=== PATIENT | male | born 1965 | race Caucasian/White ===

== ENCOUNTER 2022-05-29 12:11 | Inpatient (IN) | payer OTHER, MEDICAID, SELFPAY ==
--- NOTE | 2022-05-29 | ECG_ITS ---
Test Reason : MED CLEARANCE Blood Pressure : / mmHG Vent. Rate : 088 BPM Atrial Rate : 088 BPM P-R Int : 158 ms QRS Dur : 084 ms QT Int : 376 ms P-R-T Axes : 064 -55 013 degrees QTc Int : 454 ms Normal sinus rhythm Left axis deviation Abnormal ECG When compared with ECG of 22-JUN-2019 08:49, ST no longer depressed in Anterior leads T wave inversion no longer evident in Inferior leads Referred By: Linda Hatch Electronically Signed By:DARRION WINSLOW
--- NOTE | ~2022-05-29 | XR_ITS ---
EXAMINATION: XR RIBS, RIGHT CLINICAL INFORMATION: Pain right posterior rib. Status post fall COMPARISON: None TECHNIQUE: 3 views of the right ribs were obtained. FINDINGS: The lungs are hyperinflated but clear. Heart size and pulmonary vascularity is normal. There are multiple old rib fracture stabilized with plate and screws. There are other old healed fractures involving right posterior fourth, fifth, sixth rib unchanged to 09/11/2019. Additional fractures seen involving right lateral fifth and sixth ribs which are new since 2019 but nondisplaced. There are no left rib fracture seen. XR/XR ribs RT min 3V w CXR1V IMPRESSION: There are old healed rib fracture stabilized with metallic plate and screws involving right lateral fourth, fifth, sixth, seventh, eighth and ninth ribs. There are old partially healed fractures involving posterior fourth, fifth and sixth ribs. These are fractures are stable and unchanged from 09/11/2019. There are new right lateral fifth and sixth rib fractures, new since 2019 exam. The lungs are clear. There is no pneumothorax.
--- NOTE | ~2022-05-29 | XR_ITS ---
EXAMINATION: XR CHEST CLINICAL INFORMATION: Respiratory failure COMPARISON: Chest radiograph 06/03/2022 TECHNIQUE: Frontal view of the chest was obtained. FINDINGS: ET tube is present 7.3 cm above the laura, previously 6 cm. Right IJ catheter again noted with tip at SVC/RA junction. NG tube with tip in gastric fundus just beyond the GE junction. Multiple plate and screw devices present overlying multiple right-sided rib fractures. Heart size is normal. Some scattered areas of atelectasis are seen with worsening at the left lung base. No evidence of CHF, gross consolidations or pleural effusions. XR/XR chest 1V IMPRESSION: Mild increase in areas of atelectasis. ET tube has retracted and is now 7.3 cm above laura.
--- NOTE | ~2022-05-29 | XR_ITS ---
EXAMINATION: XR CHEST CLINICAL INFORMATION: Hypoxia. COMPARISON: 06/02/2022 chest radiograph. TECHNIQUE: Frontal view of the chest was obtained. FINDINGS: Support devices: Endotracheal tube is positioned approximately 6 cm proximal to laura. Right internal jugular catheter with tip terminating at the level the cavoatrial junction. Enteric tube with tip not included on the study but seen below the left hemidiaphragm. Multilevel right rib reconstruction plates in place without abnormality. The lungs are clear. The heart and mediastinal structures are unremarkable. XR/XR chest 1V IMPRESSION: 1. Support devices as detailed above. 2. No acute cardiopulmonary process.
--- NOTE | ~2022-05-29 | CT_ITS ---
EXAMINATION: CT ABDOMEN AND PELVIS WITHOUT CONTRAST CLINICAL INFORMATION: Abdominal pain, colitis. COMPARISON: None TECHNIQUE: Multidetector volumetric imaging was performed from the superior aspect of the liver through the pubic symphysis. Sagittal and coronal reformatted images were obtained on the technologist's workstation. This CT examination was performed using dose optimization techniques as appropriate, variously including the following: *Automated exposure control *Adjustment of mA and/or kV according to patient size (this includes techniques or standardized protocols for targeted exams where dose is matched to indication/reason for exam; i.e. extremities or head) *Use of iterative reconstruction technique DLP: 477 mGy-cm FINDINGS: LUNG BASES: The lung bases are clear. The heart size is normal. LIVER, GALLBLADDER, AND BILIARY TREE: The liver is normal in size, shape, and attenuation. No focal hepatic lesion or biliary ductal dilatation is present. The gallbladder is unremarkable with no evidence of radiopaque gallstones, gallbladder wall thickening, or obvious pericholecystic inflammatory changes. PANCREAS: The pancreas is homogeneous in density without enlargement. The peripancreatic fat borders are preserved. SPLEEN: Unremarkable. ADRENAL GLANDS: Unremarkable. KIDNEYS AND URETERS: The kidneys are normal in size, shape, and attenuation. There is a 4 mm radiopaque calculi lower pole calyx right kidney. There is no caliectasis or hydronephrosis . BLADDER: Unremarkable. GASTROINTESTINAL TRACT: . There is mild mural thickening involving the descending and sigmoid colon but no pericolic fat stranding seen. The transverse colon is unremarkable. There is scattered stool in ascending and right transverse colon. The IC junction is normal. Appendix is not visualized. ABDOMINAL WALL: No significant hernia is appreciated. LYMPH NODES: Normal. VASCULAR: There is atherosclerotic calcification of abdominal aorta, common iliac and external iliac arteries without aneurysmal dilatation. PELVIC VISCERA: The prostate gland is mildly enlarged in size OSSEOUS STRUCTURES: No aggressive lytic or sclerotic process seen. CT/CT abdomen pelvis wo IV con IMPRESSION: Diffuse mural thickening involving descending and sigmoid colon without pericolic fat stranding suggestive of inflammatory or infectious colitis. No diverticuli seen. Nonobstructive radiopaque calculi lower pole calyx right kidney. Fleischner guidelines were followed.
--- NOTE | ~2022-05-29 | XR_ITS ---
EXAMINATION: XR CHEST CLINICAL INFORMATION: ET tube placement COMPARISON: 05/29/2022 TECHNIQUE: Frontal view of the chest was obtained. FINDINGS: The ET tube is at the level of the clavicular heads 9 cm above the laura. NG tube tip overlying the fundus of the stomach. Proximal port at the level of the GE junction Lung joiner are comparable to previous. Fractures on the right. No convincing evidence for underlying acute process. Left lung is grossly clear No significant effusion is seen. The cardiac contour is comparable. XR/XR chest 1V IMPRESSION: ET tube 8.9 cm above the laura ET tube tip overlying the fundus of the stomach. Proximal port at the level of the GE junction
--- NOTE | ~2022-05-29 | XR_ITS ---
EXAMINATION: XR SHOULDER, RIGHT CLINICAL INFORMATION: Fall, trauma, pain COMPARISON: Chest and right ribs 05/29/2022 TECHNIQUE: Right shoulder is imaged in 3 views. FINDINGS: The right shoulder shows no fracture or dislocation. Acromioclavicular alignment is normal. The glenohumeral joint appears normal. There is a punctate calcification adjacent to the posterior lateral humeral head which may be related to calcific tendinosis in the teres minor. Again, there are chronic posttraumatic changes right ribs several oblique show metallic plate and screws and others with old posttraumatic deformity and healing fractures. Right lung apex shows no pneumothorax or pleural reaction or airspace opacity. XR/XR shoulder RT min 2V IMPRESSION: -No fracture or dislocation right shoulder. -Punctate calcification posterior lateral rotator cuff.
--- NOTE | ~2022-05-29 | XR_ITS ---
EXAMINATION: XR CHEST CLINICAL INFORMATION: Line placement COMPARISON: 06/01/2022 TECHNIQUE: Frontal view of the chest was obtained. FINDINGS: Endotracheal tube at the level of the clavicles, approximately 7 cm above the laura. Enteric tube extends into the stomach. Right internal jugular central venous catheter terminates near the cavoatrial junction. Right-sided rib plating. Cardiac leads overlie the chest. The lungs are well expanded. There is no focal consolidation, edema, or effusion. No pneumothorax. The cardiomediastinal silhouette is within normal limits. No acute osseous abnormality. XR/XR chest 1V IMPRESSION: Endotracheal tube terminates at the level of the clavicles, approximately 7 cm above the laura. Slight advancement could be considered. Right internal jugular central venous catheter terminates near the cavoatrial junction. No pneumothorax. Clear lungs.
[2022-05-29 12:27] VITALS: BP 128/88; BP 134/88; PULSE 92; PULSE 96; RESP 16; TEMP 37.1; O2SAT 95; O2SAT 96; BMI 22.1
--- NOTE | 2022-05-29 12:43 | MHC.CARE ---
Pt was seen by [facility] and is a bedsearch from the community
[2022-05-29 13:00] LABS: COVID-19 Test Negative (Negative); IDNOW Serial# 16C4AD1C
[2022-05-29] MEDS: chlordiazePOXIDE HCl 25 MG CAPSULE 50 MG PO (13:14)
--- NOTE | 2022-05-29 13:16 | ED_ITS ---
HPI - Psych General Chief Complaint: Psychiatric Symptoms Stated Complaint: SEC 12 BY [facility]N FOR SI PER EMS Time Seen by Provider: 05/29/22 12:27 Source: patient and EMS Mode of arrival: EMS History of Present Illness HPI Narrative: 57-year-old male with a past medical history of ETOH abuse, depression, presenting to ED via EMS on a Section 12 bed search from community for suicidal ideations and plan s/p mother's in October. Per EMS also concern for medication noncompliance. Patient states he has been taking prescribed medications appropriately. Drinks about 12 beers daily, last drink last night, does report history of withdrawal, denies withdrawal seizures. Feels mildly tremulous at present. Has plan to slit his wrist or go to [employer] to borrow his friends gun and shoot himself. Reports increased anxiety, decreased p.o. intake and poor sleep. Reports chronic colitis/diarrhea and paresthesias to RLE which are unchanged. Denies fever, CP/SOB nausea/vomiting, dysuria/hematuria. Reports marijuana use, denies other illicit substances, HI, auditory or visual hallucinations MD complaint: suicidal ideation, feels depressed, anxiety, substance abuse and alcohol abuse Onset (ago): day(s) Related Data Home Medications Medication Instructions Recorded Confirmed acetaminophen 325 mg tablet mg PO 05/29/22 alprazolam 1 mg tablet 1 tab PO TID PRN Anxiety 05/29/22 05/29/22 amlodipine 10 mg tablet 1 tab PO DAILY 05/29/22 05/29/22 diphenhydramine HCl 25 mg capsule 1 cap PO BEDTIME 05/29/22 05/29/22 hydroxyzine pamoate 25 mg capsule mg PO BID 05/29/22 ibuprofen 400 mg tablet 1 tab PO TID 05/29/22 05/29/22 lisinopril 20 mg tablet 1 tab PO DAILY 05/29/22 05/29/22 melatonin 3 mg tablet mg PO 05/29/22 metoprolol succinate 50 mg 1 tab PO DAILY 05/29/22 05/29/22 tablet,extended release 24 hr nicotine (polacrilex) 4 mg buccal 1 ea PO QID PRN Smoking Cessation 05/29/22 05/29/22 lozenge nicotine 21 mg/24 hr daily 1 patch topical DAILY 05/29/22 05/29/22 transdermal patch pantoprazole 40 mg tablet,delayed 1 tab PO DAILY 05/29/22 05/29/22 release trazodone 50 mg tablet 1 tab PO BEDTIME 05/29/22 05/29/22 Allergies Allergy/AdvReac Type Severity Reaction Status Date / Time aspirin [ASA] Allergy Unknown FACIAL Unverified 05/31/20 16:36 SWELLING Penicillins [PENICILLINS] Allergy Unknown HIVES Unverified 05/31/20 16:36 tramadol [TRAMADOL] Allergy Unknown NAUSEA & Unverified 05/31/20 16:36 VOMITING aspirin Allergy Unknown Uncoded 03/25/17 00:00 penicillin Allergy Unknown Uncoded 03/25/17 00:00 tramadol Allergy Unknown Uncoded 03/25/17 00:00 Review of Systems Review of Systems: Constitutional: No Fever, No Chills, No Fatigue, No Malaise ENT/Mouth: No Ear Pain, No Nasal Congestion, No sore throat, No Rhinorrhea, No Swallowing Difficulty Eyes: No Eye Pain, No Swelling, No Redness Cardiovascular: No Chest Pain, No SOB, No Edema, No Palpitations Respiratory: No Cough, No Sputum, No Dyspnea Gastrointestinal: No Nausea, No Vomiting, + Diarrhea, No Constipation, +chronic Abdominal pain (colitis) Genitourinary: No Dysuria, No Urgency, No Flank Pain, No Urinary Flow Changes, No Hesitancy Musculoskeletal: No joint pain, No Myalgias, No Joint Swelling Skin: No Skin Lesions, No rash Neuro: No Weakness, No Numbness, +Chronic Paresthesias, No Headache Psych: + Anxiety/Panic, + Depression, + SI, No HI/AH/VH, + Social Issues Yes all other systems are reviewed and are negative Constitutional: Constitutional: Reports as per [facility] Past Medical History Attestation statement: The following information was validated with the patient. Physical Exam Vital Signs: Vital Signs: Last Vital Signs Temp 98.7 F 05/29/22 12:27 Pulse 92 05/29/22 12:27 Resp 16 05/29/22 12:27 BP 134/88 05/29/22 12:27 Pulse Ox 96 05/29/22 12:27 O2 Del Method 05/29/22 12:27 BMI result Body Mass Index 22.1 Const: Other: tearful, mildly tremulous, no tongue fasciculations. General: cooperative, healthy appearing and anxious Orientation/consciousness: patient oriented x3 Limitations: no limitations HEENT: Head: Yes normal to inspection and Yes atraumatic Ears: hearing grossly normal bilaterally General nose exam: Normal external nose present Face and sinus: Yes normal facial exam Throat: Yes posterior oropharynx normal Eyes: General: appearance normal, both eyes and all related structures EOM: EOMs intact bilaterally Neck: Neck: Yes normal visual inspection and Yes no meningeal signs Resp: Effort & Inspection: normal respiratory effort and no respiratory distress Auscultation: clear to auscultation bilaterally, no crackles, no rales, no rhonchi and no wheezes Cardio: Rate: regular rate Heart sounds: S1 normal heart sound present and S2 normal heart sound present GI: Inspection: Yes normal to inspection Palpation (GI): Soft to palpation, nontender, no guarding and not rigid Skin: Rashes: no rashes Wounds: no wounds Neuro: General: patient oriented x3, gait normal, tone normal, moves all extremities, no meningeal signs and no focal motor deficits Cranial nerves: Yes CN's II-XII intact bilaterally Cognition (Neuro): normal cognition Gait exam (Neuro): Normal gait present Extrem: General: Yes normal to inspection Psych: Appearance: grossly normal Affect: Sad affect present and Anxious affect present Attitude: cooperative Thought process: Normal thought process present Thought content: Suicidality present, no homicidality, no hallucinations and Depressive thoughts present Insight: Good insight present (Psych) Course Course Course Narrative: -[id number]--magnesium critically low at 1.0 > 2 g IV repletion ordered as well as IV thiamine and multivitamin. Patient will be removed from Behavioral POD and brought into the main ED -chronic transaminitis. Ethanol negative. Will initiate phenobarb protocol and plan for admission MDM - Psych MDM Narrative Medical decision making narrative: 57-year-old male with a past medical history of ETOH abuse, depression, presenting to ED via EMS on a Section 12 bed search from community for suicidal ideations and plan s/p mother's in October. On exam vital signs stable, NAD, tearful, anxious and depressed during evaluation, mildly tremulous. Concern for mild EtOH withdrawal and suicidal ideations with plan. Will rule out metabolic/infectious etiology/organic causes Plan: EKG, labs, UA, MO, bedsearch Differential Diagnosis Differential diagnosis: Likely depression, acute anxiety, substance abuse, alcohol intoxication and mood disorder Medical Records Attestation: I reviewed the patient's medical records. Lab Data Attestation: I reviewed the patient's lab results. Result diagrams: 05/29/22 13:10 05/29/22 13:10 Labs: Lab Results 05/29/22 05/29/22 05/29/22 Range/Units 12:37 13:10 13:10 WBC 5.1 (4.8-10.8) X10*3/uL RBC 3.76 L (4.60-5.80) X10*6/uL Hgb 13.3 L (14.0-18.0) g/dl Hct 36.4 L (42.0-52.0) % MCV 96.8 (80.0-98.0) fL MCH 35.4 H (27.0-33.0) pg MCHC 36.5 H (31.0-36.0) g/dl RDW 11.9 (11.0-16.0) % Plt Count 135 L (160-400) X10*3/uL MPV 9.3 L (9.4-12.4) fL Immature Gran % (Auto) 0.2 (0.0-0.4) % Neut % (Auto) 61.9 (45-73) % Lymph % (Auto) 27.7 (20-40) % [place] % (Auto) 8.2 (2-11) % Eos % (Auto) 1.4 (0-4) % Baso % (Auto) 0.6 (0-2) % Lymph # (Auto) 1.4 (1.2-4.9) X10*3/uL [place] # (Auto) 0.4 (0.1-1.2) X10*3/uL Eos # (Auto) 0.1 (0.0-0.4) X10*3/uL Baso # (Auto) 0.0 (0.0-0.2) X10*3/uL Abs Immat Gran (auto) 0.01 (0.00-0.03) X10*3/uL Absolute Neuts (auto) 3.2 (2.0-8.3) x10*3/uL Absolute Nucleated RBC 0.000 (0.0-0.012) X10*3/uL Nucleated RBC % (auto) 0.0 (0.0-0.2) /100WBC Sodium 137 (135-145) mmol/L Potassium 3.5 (3.3-5.1) mmol/L Chloride 97 (96-108) mmol/L Carbon Dioxide 29 (22-29) mmol/L Anion Gap 15 (12-20) BUN 18 H (9-16) mg/dL Creatinine 1.17 (0.5-1.4) mg/dL Estim Creat Clear Calc 67.8 Estimated GFR > 60 Random Glucose 120 H (60-115) mg/dL Calcium 9.1 (8.4-10.2) mg/dL Magnesium 1.0 L* (1.6-2.6) mg/dL Total Bilirubin 3.8 H (0.0-1.0) mg/dL Direct Bilirubin 2.1 H (0.0-0.5) mg/dL AST 176 H (5-37) U/L ALT 200 H (0-40) U/L Alkaline Phosphatase 114 (39-117) U/L Total Protein 6.6 (6.5-8.0) g/dL Albumin 3.7 (3.5-5.0) g/dL Lipase 31 (8-78) U/L Ethyl Alcohol < 10 mg/dL COVID-19 ([facility]YN) Negative (Negative) COVID-19 Clin Com See Note Critical Care Time Critical Care Time Critical Care Time: Yes Total Critical Care Time: 30 Attestation: I have personally provided critical care time exclusive of time spent on separately billable procedures. Time includes review of lab data, radiology results, discussion with consultants, and monitoring for potential decompensation. Intervention performed as documented. Discharge Plan Discharge Clinical Impression: Hypomagnesemia, Depression with suicidal ideation, Chronic alcohol abuse Patient Disposition: Admitted As Inpatient
[2022-05-29 13:18] LABS: MANUAL DIFF FLAG NO
[2022-05-29 13:22] LABS: Basophils Percent Auto 0.6 % (0-2); Eosinophils Absolute Auto 0.1 X10*3/uL (0.0-0.4); Eosinophils Percent Auto 1.4 % (0-4); Hematocrit 36.4 % (42.0-52.0); Hemoglobin 13.3 g/dl (14.0-18.0); Imm Gran Abs Auto 0.01 X10*3/uL (0.00-0.03); Imm Gran Pct Auto 0.2 % (0.0-0.4); Lymphocytes Absolute Auto 1.4 X10*3/uL (1.2-4.9); Lymphocytes Percent Auto 27.7 % (20-40); Mean Corpuscular HGB Conc 36.5 g/dl (31.0-36.0); Mean Corpuscular Hemoglobin 35.4 pg (27.0-33.0); Mean Corpuscular Volume 96.8 fL (80.0-98.0); Mean Platelet Volume 9.3 fL (9.4-12.4); Monocytes Absolute Auto 0.4 X10*3/uL (0.1-1.2); Monocytes Percent Auto 8.2 % (2-11); Neutrophils Absolute Auto 3.2 x10*3/uL (2.0-8.3); Neutrophils Percent Auto 61.9 % (45-73); Platelet Count 135 X10*3/uL (160-400); Red Blood Count 3.76 X10*6/uL (4.60-5.80); Red Cell Distribution Width 11.9 % (11.0-16.0); White Blood Count 5.1 X10*3/uL (4.8-10.8)
[2022-05-29 13:49] LABS: Alanine Aminotransferase 200 U/L (0-40); Albumin Level 3.7 g/dL (3.5-5.0); Alkaline Phosphatase 114 U/L (39-117); Anion Gap 15 (12-20); Aspartate Amino Transferase 176 U/L (5-37); Bilirubin Direct 2.1 mg/dL (0.0-0.5); Bilirubin Total 3.8 mg/dL (0.0-1.0); Blood Urea Nitrogen 18 mg/dL (9-16); Calcium 9.1 mg/dL (8.4-10.2); Carbon Dioxide 29 mmol/L (22-29); Chloride 97 mmol/L (96-108); Creatinine Clr Calc Pharmacy 67.8; Estimated Glomerular Filt Rate > 60; Ethanol < 10 mg/dL; Glucose Random 120 mg/dL (60-115); Lipase 31 U/L (8-78); Potassium 3.5 mmol/L (3.3-5.1); Sodium 137 mmol/L (135-145); Total Protein 6.6 g/dL (6.5-8.0)
--- NOTE | 2022-05-29 13:52 | PC.NURSE ---
chemistry reports to me mag crit low at 1.0. notified provoder, immedicately got ekg machine and brought to pod, notified pATIENT and continued w ekg
--- NOTE | 2022-05-29 14:18 | PHA.MEDREC ---
Pharmacy Consult ? Medication Reconciliation Pharmacy has completed the medication reconciliation. Patient had medications with him down in the pod. I packaged them up in a patient own bag, had RN Britt verify the control count (alprazolam) and it is now being kept in the [facility] safe till patient is discharged.
--- NOTE | 2022-05-29 14:33 | MHC.CARE ---
Pt was initially assessed by Bishnu Clifford in the community and found IPLOC. Pt is now going to be a medical admit. Please consult CARE Team when Pt is medically cleared for assessment
--- NOTE | 2022-05-29 14:52 | PM.IMHP ---
History of Present Illness Date of Service: 05/29/22 Attending physician on admission: Quintin Schmid Chief Complaint: alcohol withdrawal, SI 57 year old male with history of htn, gerd, alcohol dependence, chronic right shoulder pain with RUE weakness, and depression/anxiety presenting to ED via EMS on section 12 bed search from community for SI with plan ongoing since his mother's in October. Per EMS, also concern for medication noncompliance. Bed search is currently underway for his depression/SI. However, patient admits to drinking 12 beers and 12 nips of whiskey daily, last drink was last night. He has experienced withdrawal before with tremors, diarrhea, poor sleep. Denies seizure history. Recently hospitalized at [facility] from 04/22- for alcohol but apparently was lost to outpt follow up and has resumed drinking. No illicit drug use. Does smoke MJ occassionally. Pt also states he was told by [facility] last year his pancreatitis is low but is not able to elaborate. Amylase and lipase are normal. Liver emzymes elevated but close to baseline overall with total bili 3.8, direct bili 2.1, AST 176, ALT 200 (increased from 136), alk phos 113. Mg 1.0. EKG with normal sinus rhythm rate [address] abnormality. He is reporting nonradiating lower abdominal pain which he feels is consistent with his colitis history and is associated with watery diarrhea with urgency/incontinence. Denies melena or hematochezia. He reports a weight loss of 50 pounds since the onset of his depression with decreased PO intake. Pt still in BH pod, with plan to be moved to main ED for treatment with 2mg IV magnesium, phenobarb per protocol. Has been given single dose of 50mg librium. Review of Systems Review of Systems: General: No fevers, malaise, unintentional weight loss Cardiovascular: No chest pain, palpitations, or leg edema Respiratory: No shortness of breath, wheezing, cough GI: +lower abd pain, +diarrhea with urgency. No nausea, vomiting, constipation, melena, hematochezia Neuro: No headaches, weakness, paresthesias Psych: +depression, +SI Skin: No rashes or lesions [facility] Medical History (Updated 05/29/22 @ 15:13 by HOLLI Arroyo) GERD (gastroesophageal reflux disease) Heavy tobacco smoker History of colitis HTN (hypertension) Family History (Updated 05/29/22 @ 15:13 by HOLLI Arroyo) Mother Alzheimer disease Multiple sclerosis Social History (Updated 05/29/22 @ 15:14 by HOLLI Arroyo) Patient Tobacco Use Status: Current everyday Tobacco user Cigarette Packs Per Day: 2 Use of substances other than those prescribed or required for medical reasons: Yes Substance Use Type: Marijuana Advance Directives: No Advance Directives Information Provided: No Meds Allergies Allergy/AdvReac Type Severity Reaction Status Date / Time aspirin [ASA] Allergy Unknown FACIAL Unverified 05/31/20 16:36 SWELLING Penicillins [PENICILLINS] Allergy Unknown HIVES Unverified 05/31/20 16:36 tramadol [TRAMADOL] Allergy Unknown NAUSEA & Unverified 05/31/20 16:36 VOMITING aspirin Allergy Unknown Uncoded 03/25/17 00:00 penicillin Allergy Unknown Uncoded 03/25/17 00:00 tramadol Allergy Unknown Uncoded 03/25/17 00:00 Active Medications: Current Medications Acetaminophen (Acetaminophen Supp 650 Mg Supp.Rect) 650 mg ND Q6H PRN PRN Reason: Pain, Mild (Pain Scale 1-3) Enoxaparin Sodium (Enoxaparin Sodium 40 Mg/0.4 Ml Syringe) 40 mg SUBCUT Q24H CALVIN Magnesium Sulfate (Magnesium Sulfate/H2o) 2 gm in 50 mls @ 25 mls/hr IV ONCE ONE Stop: 05/29/22 15:55 Ondansetron HCl (Ondansetron Hcl 4 Mg/2 Ml Vial) 4 mg IVPUSH Q8H PRN PRN Reason: Nausea and Vomiting Pharmacy Consult (Consult Rx Perform Med Rec) 1 each MISCELLANE ONCE PRN PRN Reason: Consult order Pharmacy Consult (Consult Rx Perform Med Rec) 1 each MISCELLANE ONCE PRN PRN Reason: Consult order Pharmacy Consult (Consult Rx Etoh Phenob Po Only) 1 each MISCELLANE ONCE PRN; Protocol PRN Reason: Consult order Phenobarbital 200 mg/Phenobarbital 60 mg/Phenobarbital 15 mg 275 mg PO ONCE ONE; Protocol Stop: 05/29/22 15:01 Phenobarbital (Phenobarbital 100 Mg Tablet) 200 mg PO Q3H CALVIN; Protocol Stop: 05/29/22 21:01 Phenobarbital (Phenobarbital 15 Mg Tablet) 45 mg PO BID CALVIN; Protocol Stop: 05/31/22 21:01 Phenobarbital (Phenobarbital 15 Mg Tablet) 15 mg PO BID CALVIN; Protocol Stop: 06/02/22 21:01 Phenobarbital (Phenobarbital 15 Mg Tablet) 15 mg PO DAILY [facility]; Protocol Stop: 06/04/22 09:01 Sodium Chloride (0.9 % Sodium Chloride Flush 3 Ml Syringe) 3 ml IVFLUSH QSHIFT [facility] Home Medications Medication Instructions Recorded Confirmed Last Taken Type acetaminophen 325 mg tablet 325 mg PO DAILY PRN Pain 05/29/22 05/29/22 Unknown History alprazolam 1 mg tablet 1 tab PO TID PRN Anxiety 05/29/22 05/29/22 Unknown History amlodipine 10 mg tablet 1 tab PO DAILY 05/29/22 05/29/22 Unknown History diphenhydramine HCl 25 mg capsule 1 cap PO BEDTIME 05/29/22 05/29/22 Unknown History ibuprofen 400 mg tablet 1 tab PO TID 05/29/22 05/29/22 Unknown History lisinopril 20 mg tablet 1 tab PO DAILY 05/29/22 05/29/22 Unknown History melatonin 3 mg tablet 9 mg PO DAILY PRN Insomnia 05/29/22 05/29/22 Unknown History metoprolol succinate 50 mg 1 tab PO DAILY 05/29/22 05/29/22 Unknown History tablet,extended release 24 hr pantoprazole 40 mg tablet,delayed 1 tab PO DAILY 05/29/22 05/29/22 Unknown History release trazodone 50 mg tablet 1 tab PO BEDTIME 05/29/22 05/29/22 Unknown History Physical Exam Vital Signs and Narrative: Vital Signs: Last Vital Signs Temp 98.7 F 05/29/22 12:27 Pulse 92 05/29/22 12:27 Resp 16 05/29/22 12:27 BP 134/88 05/29/22 12:27 Pulse Ox 96 05/29/22 12:27 O2 Del Method 05/29/22 12:27 BMI result Body Mass Index 22.1 Constitutional - Awake and Alert, No apparent distress Eyes - PERRLA, EOMI Cardiovascular - S1S2, RRR, No edema Respiratory - Normal lung expansion, Normal respiratory effort, No respiratory distress, CTA bilaterally Gastrointestinal - Moderate ttp lower abd without guarding or rebound. Nondistended without rigidity. +BS Extremities - no calf tenderness bilaterally, no swelling Skin - Warm/Dry Neurological - Alert & oriented x3, CN II-XII in tact, 4/5 strength BLE and RUE. 5/5 strength LUE Psychological - Depressed, flat affect, tearful at times Results Labs CBC and Chem 7: 05/29/22 13:10 05/29/22 13:10 Labs: Laboratory Results - last 24 hr 05/29/22 05/29/22 05/29/22 12:37 13:10 13:10 MCV 96.8 MCH 35.4 H MCHC 36.5 H RDW 11.9 Plt Count 135 L MPV 9.3 L Immature Gran % (Auto) 0.2 Neut % (Auto) 61.9 Lymph % (Auto) 27.7 [place] % (Auto) 8.2 Eos % (Auto) 1.4 Baso % (Auto) 0.6 Lymph # (Auto) 1.4 [place] # (Auto) 0.4 Eos # (Auto) 0.1 Baso # (Auto) 0.0 Abs Immat Gran (auto) 0.01 Absolute Neuts (auto) 3.2 Absolute Nucleated RBC 0.000 Nucleated RBC % (auto) 0.0 Anion Gap 15 Estim Creat Clear Calc 67.8 Estimated GFR > 60 Random Glucose 120 H Calcium 9.1 Magnesium 1.0 L* Total Bilirubin 3.8 H Direct Bilirubin 2.1 H AST 176 H ALT 200 H Alkaline Phosphatase 114 Total Protein 6.6 Albumin 3.7 Lipase 31 Ethyl Alcohol < 10 COVID-19 ([facility]) Negative COVID-19 Clin Com See Note Assessment and Plan (1) Alcohol withdrawal: Status: Acute (2) Chronic alcohol abuse: Status: Acute (3) Depression with suicidal ideation: Status: Acute Plan 57 year old male with history of htn, gerd, alcohol dependence, chronic right shoulder pain with RUE weakness, hx colitis, and depression/anxiety presenting to ED via EMS on section 12 bed search from community for SI with plan ongoing since his mother's in October to be admitted for alcohol withdrawal. 1- Alcohol withdrawal r/t severe alcohol dependence -Pt consumes 12 beers and 12 shots daily, last drink was last night -Received 50mg librium in ED. Phenobarb protocol initiated, continue per protocol -Continue CIWA scale -Seizure precautions -IV thiamine and folic acid 2-Depression with SI -1:1 sitter -Continue home trazodone, alprazolam -Continue bed search for BH -Section 12 3-Hypomagnesemia -2mg IV mg in ED -Repeat BMP in 2 hours -Hold omeprazole 4-HTN- controlled -Continue home lisinopril, amlodipine, and metoprolol 5-History colitis (per pt, unknown type) -Pt with persistent diarrhea with urgency/incontinence and lower abdominal pain -Ct abd/pelvis ordered -Consider GI referral if needed 6-GERD- controlled -Hold pantoprazole for now d/t low mag 7-Transaminitis- likely related to alcohol use -CT abd/pelvis ordered as above 8-2ppd cigarette user -NRT with 21mg patch and nicorette prn DVT prophylaxis- Lovenox Full code Pt requires inpt stay of at least 2 midnights for management of alcohol withdrawal r/t severe alcohol dependence at risk for seizures Quality Stroke Does the patient have a stroke diagnosis?: No VTE Prior VTE?: No VTE Risk Level:: Medical - moderate - high VTE Device Contraindication: Treatment Not Indicated VTE Drug Contraindication: N/A - Med Ordered
[2022-05-29] MEDS: Magnesium Sulfate/H2O 2 GM/50 ML PIGGYBACK IV (15:56)
[2022-05-29] MEDS: Folic Acid 1 MG TABLET PO (15:59)
[2022-05-29] MEDS: Multivitamin TABLET 1 TAB PO (16:00)
[2022-05-29] MEDS: Enoxaparin Sodium 40 MG/0.4 ML SYRINGE SUBCUT (16:00)
[2022-05-29] MEDS: PHENobarbitaL 200 MG, PHENobarbitaL 60 MG, PHENobarbitaL 15 MG 275 MG PO (16:00)
[2022-05-29 16:05] VITALS: BP 114/89; PULSE 90; RESP 16; O2SAT 95
--- NOTE | 2022-05-29 16:08 | PC.NURSE ---
pt moved over from the pod pt alert and oriented, skin pwd, respirations even and unlabored, pt reports drinking daily about 12 nips of wiskey and bout 6 of the 24 oz beers per day last drink was yesterday, pt currently has a very mild hand tremor, and feels slightly anxious. reports bilateral rib pain and leg pain / vs stable and ns on the monitor,.
[2022-05-29] MEDS: Thiamine HCL 100 MG in 0.9 % Sodium Chloride 100 ML 202 MG IV (17:36)
[2022-05-29] MEDS: 0.9 % Sodium Chloride Flush 3 ML SYRINGE IVFLUSH (17:40)
[2022-05-29] MEDS: Ibuprofen 600 MG TABLET PO (18:11)
[2022-05-29] MEDS: Acetaminophen 325 MG TABLET 650 MG PO (18:13)
[2022-05-29 18:15] VITALS: BP 114/80; PULSE 78; RESP 18; O2SAT 95
[2022-05-29] MEDS: Nicotine 21 MG PATCH.TD24 TRANSDERMA (18:46)
--- NOTE | 2022-05-29 19:00 | PC.NURSE ---
Pt resting, calm/cooperative, sitter outside room, safety maintained, this RN continues to monitor.
[2022-05-29 19:17] LABS: Magnesium 1.6 mg/dL (1.6-2.6)
[2022-05-29] MEDS: oxyCODONE HCl Immed Release 5 MG TABLET PO (20:36)
[2022-05-29] MEDS: diphenhydrAMINE HCL 25 MG TABLET PO (20:37)
[2022-05-29] MEDS: traZODone HCL 50 MG TABLET PO (20:37)
--- NOTE | 2022-05-29 21:56 | MHC.CM.PN ---
Attempted to meet with patient for discharge planning, however pt was sleeping soundly. Pt was recently medicated for pain/withdrawal. Will attempt to meet with patient when he wakes. CM will follow gómez/c planning
[2022-05-29] MEDS: ALPRAZolam 0.5 MG TABLET 1 MG PO (23:33)
--- NOTE | 2022-05-30 | PC.NURSE ---
Pt sleeping, chest rise and fall observed, sitter outside room, safety maintained, this RN continues to monitor.
--- NOTE | 2022-05-30 03:20 | PC.NURSE ---
Pt sleeping, chest rise and fall observed, sitter outside room, safety maintained, this RN continues to monitor.
[2022-05-30 07:20] VITALS: BP 104/67; PULSE 82; RESP 19; O2SAT 95
[2022-05-30 07:37] LABS: Anion Gap 14 (12-20); Blood Urea Nitrogen 14 mg/dL (9-16); Calcium 8.5 mg/dL (8.4-10.2); Carbon Dioxide 28 mmol/L (22-29); Chloride 100 mmol/L (96-108); Creatinine Clr Calc Pharmacy 82.6; Estimated Glomerular Filt Rate > 60; Glucose Random 95 mg/dL (60-115); Magnesium 1.5 mg/dL (1.6-2.6); Potassium 3.4 mmol/L (3.3-5.1); Sodium 139 mmol/L (135-145)
[2022-05-30] MEDS: Thiamine HCL 100 MG in 0.9 % Sodium Chloride 100 ML 202 MG IV (08:58)
[2022-05-30] MEDS: amLODIPine Besylate 10 MG TABLET PO (08:59)
[2022-05-30] MEDS: Metoprolol Succinate ER 50 MG TAB.ER.24H PO (08:59)
[2022-05-30] MEDS: Folic Acid 1 MG TABLET PO (08:59)
[2022-05-30] MEDS: PHENobarbitaL 15 MG TABLET 45 MG PO ×2 (09:00→20:47)
[2022-05-30] MEDS: lisinopriL 20 MG TABLET PO (09:00)
[2022-05-30] MEDS: Nicotine 21 MG PATCH.TD24 TRANSDERMA (09:00)
[2022-05-30] MEDS: 0.9 % Sodium Chloride Flush 3 ML SYRINGE IVFLUSH (09:01)
[2022-05-30 11:29] VITALS: BP 108/75; PULSE 76; RESP 20; O2SAT 95
--- NOTE | 2022-05-30 11:39 | P.CNGI_ITS ---
History of Present Illness Data of Consult Service Date: 05/30/22 Requesting physician: Danielle Godinez Primary Care Provider: Ga Adkins MD [facility] Reason for consult: Diarrrhea, colitis This is a 57-year-old gentleman with past medical history of alcohol use disorder, depression, hypertension, who is currently admitted to the hospital for suicidal ideation and alcohol withdrawal. Gastroenterology has been consulted for complaint of chronic watery diarrhea and findings of increased colon wall thickness on CT abdomen. History was obtained from the patient who states that he he has had diarrhea for many months associated with right lower quadrant abdominal pain. Describes diarrhea as 2-3 loose watery bowel movements every day. The abdominal pain does not change with stooling. Denies any blood in stool. Endorses nausea and occasional vomiting with decreased appetite and per his report 50 lb weight loss the past 6 months.. Tells me he was seen at [facility] for this as well, and he was told to have colonoscopy as outpatient, which he has not been able to get it to his psychiatric issues. In fact, he has never had colonoscopy or other colorectal screening of any kind. In terms of his alcohol use disorder, he drinks cups of a skin every day. Has been hospitalized multiple times for withdrawal, as well as rehabs for treatment with relapse. Tells me he has never had any liver issues, but does recall an admission at [facility] for pancreatitis. Review of Systems Review of Systems: Yes all other systems are reviewed and are negative FOR[facility], [facility] Past Medical History Medical History (Updated 05/30/22 @ 12:40 by Rosanne Lord MD) Chronic diarrhea GERD (gastroesophageal reflux disease) Heavy tobacco smoker History of colitis HTN (hypertension) Family History Family History Mother Alzheimer disease Multiple sclerosis Social History Social History Alcohol intake: current Alcohol intake frequency: 3 or more drinks per day Patient Tobacco Use Status: Current everyday Tobacco user Cigarette Packs Per Day: 2 Use of substances other than those prescribed or required for medical reasons: Yes Substance Use Type: Marijuana Substance Use Frequency: Occasionally Advance Directives: No Advance Directives Information Provided: No Meds Allergies Allergy/AdvReac Type Severity Reaction Status Date / Time aspirin [ASA] Allergy Unknown FACIAL Unverified 05/31/20 16:36 SWELLING Penicillins [PENICILLINS] Allergy Unknown HIVES Unverified 05/31/20 16:36 tramadol [TRAMADOL] AdvReac Unknown NAUSEA & Unverified 05/30/22 10:16 VOMITING Active Medications: Current Medications Acetaminophen (Acetaminophen 325 Mg Tablet) 650 mg PO Q6H PRN PRN Reason: Pain, Moderate (Pain Scale 4-6 Last Admin: 05/29/22 18:13 Dose: 650 mg Alprazolam (Alprazolam 0.5 Mg Tablet) 1 mg PO TID [facility] Amlodipine Besylate (Amlodipine Besylate 10 Mg Tablet) 10 mg PO DAILY [facility]; Protocol Last Admin: 05/30/22 08:59 Dose: 10 mg Diphenhydramine HCl (Diphenhydramine Hcl 25 Mg Tablet) 25 mg PO BEDTIME [facility] Last Admin: 05/29/22 20:37 Dose: 25 mg Enoxaparin Sodium (Enoxaparin Sodium 40 Mg/0.4 Ml Syringe) 40 mg SUBCUT Q24H [facility] Last Admin: 05/29/22 16:00 Dose: 40 mg Folic Acid (Folic Acid 1 Mg Tablet) 1 mg PO DAILY [facility] Last Admin: 05/30/22 08:59 Dose: 1 mg Thiamine HCl 100 mg/ Sodium (Chloride) 101 mls @ 202 mls/hr IV DAILY [facility] Last Infusion: 05/30/22 09:28 Dose: Infused Ibuprofen (Ibuprofen 600 Mg Tablet) 600 mg PO Q6H PRN PRN Reason: Pain, Mild (Pain Scale 1-3) Last Admin: 05/29/22 18:11 Dose: 600 mg Lisinopril (Lisinopril 20 Mg Tablet) 20 mg PO DAILY [facility]; Protocol Last Admin: 05/30/22 09:00 Dose: 20 mg Melatonin (Melatonin 3 Mg Tablet) 9 mg PO DAILY PRN PRN Reason: Insomnia Metoprolol Succinate (Metoprolol Succinate Er 50 Mg Tab.Er.24h) 50 mg PO DAILY [facility]; Protocol Last Admin: 05/30/22 08:59 Dose: 50 mg Nicotine (Nicotine 21 Mg Patch.Td24) 21 mg TRANSDERMA DAILY [facility] Last Admin: 05/30/22 09:00 Dose: 21 mg Nicotine Polacrilex (Nicotine Polacrilex Lozenge 2 Mg Lozenge) 2 mg BUCCAL Q2H PRN PRN Reason: Nicotine Cravings Ondansetron HCl (Ondansetron Hcl 4 Mg/2 Ml Vial) 4 mg IVPUSH Q8H PRN PRN Reason: Nausea and Vomiting Oxycodone HCl (Oxycodone Hcl Immed Release 5 Mg Tablet) 5 mg PO Q6H PRN PRN Reason: Pain, Moderate (Pain Scale 4-6 Last Admin: 05/29/22 20:36 Dose: 5 mg Oxycodone HCl (Oxycodone Hcl Immed Release 5 Mg Tablet) 10 mg PO Q6H PRN PRN Reason: Pain, Severe (Pain Scale 7-10) Pharmacy Consult (Consult Rx Perform Med Rec) 1 each MISCELLANE ONCE PRN PRN Reason: Consult order Pharmacy Consult (Consult Rx Perform Med Rec) 1 each MISCELLANE ONCE PRN PRN Reason: Consult order Pharmacy Consult (Consult Rx Etoh Phenob Po Only) 1 each MISCELLANE ONCE PRN; Protocol PRN Reason: Consult order Phenobarbital (Phenobarbital 15 Mg Tablet) 45 mg PO BID [facility]; Protocol Stop: 05/31/22 21:01 Last Admin: 05/30/22 09:00 Dose: 45 mg Phenobarbital (Phenobarbital 15 Mg Tablet) 15 mg PO BID [facility]; Protocol Stop: 06/02/22 21:01 Phenobarbital (Phenobarbital 15 Mg Tablet) 15 mg PO DAILY [facility]; Protocol Stop: 06/04/22 09:01 Sodium Chloride (0.9 % Sodium Chloride Flush 3 Ml Syringe) [facility] Last Admin: 05/30/22 09:01 Dose: 3 ml Trazodone HCl (Trazodone Hcl 50 Mg Tablet) 50 mg PO BEDTIME [facility] Last Admin: 05/29/22 20:37 Dose: 50 mg Home Medications Medication Instructions Recorded Confirmed Last Taken Type acetaminophen 325 mg tablet 325 mg PO DAILY PRN Pain 05/29/22 05/29/22 Unknown History alprazolam 1 mg tablet 1 tab PO TID PRN Anxiety 05/29/22 05/29/22 Unknown History amlodipine 10 mg tablet 1 tab PO DAILY 05/29/22 05/29/22 Unknown History diphenhydramine HCl 25 mg capsule 1 cap PO BEDTIME 05/29/22 05/29/22 Unknown History ibuprofen 400 mg tablet 1 tab PO TID 05/29/22 05/29/22 Unknown History lisinopril 20 mg tablet 1 tab PO DAILY 05/29/22 05/29/22 Unknown History melatonin 3 mg tablet 9 mg PO DAILY PRN Insomnia 05/29/22 05/29/22 Unknown History metoprolol succinate 50 mg 1 tab PO DAILY 05/29/22 05/29/22 Unknown History tablet,extended release 24 hr pantoprazole 40 mg tablet,delayed 1 tab PO DAILY 05/29/22 05/29/22 Unknown History release trazodone 50 mg tablet 1 tab PO BEDTIME 05/29/22 05/29/22 Unknown History Physical Exam Vital Signs: Vital Signs: Last Vital Signs Temp 98.7 F 05/29/22 12:27 Pulse 76 05/30/22 11:29 Resp 20 05/30/22 11:29 BP 108/75 05/30/22 11:29 Pulse Ox 95 05/30/22 11:29 O2 Del Method 05/30/22 11:29 BMI result Body Mass Index 22.1 Gen appear: No acute distress, HEENT: no icterus, no cervical lymphadenopathy Chest: No overt resp distress CVS: S1/S2, regular Abd: soft, nontender, nondistended, no shifting dullness Psych: Somewhat agitated Neuro: A/Ox3 noted to move all extremities spontaneously Ext: no peripheral edema Results Labs CBC & Chem 7: 05/29/22 13:10 05/30/22 06:08 Labs: Short CBC 05/29/22 Range/Units 13:10 WBC 5.1 (4.8-10.8) X10*3/uL Hgb 13.3 L (14.0-18.0) g/dl Hct 36.4 L (42.0-52.0) % Plt Count 135 L (160-400) X10*3/uL BMP 05/29/22 05/30/22 13:10 06:08 Sodium 137 139 Potassium 3.5 3.4 Chloride 97 100 Carbon Dioxide 29 28 BUN 18 H 14 Creatinine 1.17 0.96 Calcium 9.1 8.5 D Cardiac Enzymes 05/29/22 Range/Units 13:10 Total Creatine Kinase 196 H (38-174) U/L Liver Function 05/29/22 Range/Units 13:10 Total Bilirubin 3.8 H (0.0-1.0) mg/dL Direct Bilirubin 2.1 H (0.0-0.5) mg/dL AST 176 H (5-37) U/L ALT 200 H (0-40) U/L Alkaline Phosphatase 114 (39-117) U/L Albumin 3.7 (3.5-5.0) g/dL Imaging CT scan - abdomen: Attestation: I personally reviewed and interpreted this imaging study as follows: My impression: CT imaging personally reviewed diet shows a normal size liver with slightly lobular contour without any overt fatty changes. Colon wall thickening noted without any pericolonic fatty stranding. Assessment and Plan (1) Chronic diarrhea: Status: Acute (2) Colitis: Status: Acute (3) Chronic alcohol abuse: Status: Acute (4) Alcohol withdrawal: Status: Acute Plan Differentials include infectious, inflammatory, portal colopathy and ischemic. Given his reported weight loss and no prior CRC screening, will proceed with inpatient colonoscopy izzy as he has also demonstrated difficulty with outpatient follow ups. Recommendations: - Check CRP, fecal leukocytes and calprotectin - GI panel - Urine tox - Plan for colonoscopy on Thursday tentatively (golytely orders placed). - Okay for low fiber diet today and tomorrow. Clear liquids on thursday. Pls keep him NPO after midnight for Saturday 06/02. Management for etOH withdrawal as per primary team. - Would recommend symptoms triggered ativan - avoid long acting benzos in this patient predisposed to underlying chronic liver disease - Check Hep A IgG, Hep B s Ag, s Ab, core Ab, HCV Ab (orders placed) - Consider addiction medicine consultation Procedures Date of Service Date of Service: 05/30/22
[2022-05-30] MEDS: ALPRAZolam 0.5 MG TABLET 1 MG PO ×3 (11:42→20:47)
--- NOTE | 2022-05-30 11:48 | PC.NURSE ---
Sitter with patient at present. Resting quietly in bed. Easily agitated with questions and assessment. Given Xanax per MD order
--- NOTE | 2022-05-30 12:56 | MHC.CARE ---
Per Dr. Schmid, pt will not be medically cleared today.
--- NOTE | 2022-05-30 13:08 | MHC.CM.PN ---
IMM 05/30/22, EMR REVIEWED, CM MET W/PT WHO PRESENTS W/IRRITABLE EDGE, PT REPORTS HE LIVES ALONE IN AN APT IN [place], PT DENIES USE OF DME /HOME SERVICES, PT REPORTS HE [facility] AND WHEN ASKED IF HE HAD TRANSPORTATION HOME HE REPORTED HE WOULD GO BACK TO [place] [facility] HOWEVER DECLINED TO ELABORATE WHERE HE WAS GOING, WHEN ASKED IF HE HAD A RIDE HE REPORTS HE DOES. PT VERIFIES PCP YASMANI VILLARREAL, REPORTS HE RECEIVED 2-4 COVID VACCINES HOWEVER IS A POOR HISTORIAN. PT ALSO REPORTS HIS NEPHEW GABRIELA [phone] IS HIS HCP, COPY REQUESTED. ANTIC D/C HOME IF CLEARED BY CARE TEAM, [facility] VS PT TO ARRANGE TRANSPORT.
[2022-05-30 13:39] LABS: C Reactive Protein 0.57 mg/dL (< or = 0.50)
[2022-05-30 13:59] LABS: Hepatitis A Antibody IgG REACTIVE (Nonreactive); ~Hepatitis A Antibody IgG 5.21 S/CO (0.00-0.99)
[2022-05-30 14:01] LABS: HBS Num1 28.59 mIU/mL (0-7.99); HBc Num1 0.08 S/CO (0.00-0.79); HBsAGNum1 0.21 S/CO (0.00-0.99); Hepatitis B Core Antibody Nonreactive (Nonreactive); Hepatitis B Surface Antigen Negative (Negative); ~HepC Num1 0.16 S/CO (0.00-0.79); ~Hepatitis B Surface Antibody REACTIVE (Nonreactive); ~Hepatitis C Antibody Nonreactive (Nonreactive)
--- NOTE | 2022-05-30 14:58 | P.PNIM_ITS ---
Subjective Subjective Date of Service: 05/30/22 Interval History: No acute issues overnight. Tolerating phenobarb protocol Review of Systems Denies chest pain Denies shortness of breath Denies nausea vomiting diarrhea Denies fever chills Complains of rib pain Physical Exam Vital Signs: Vital Signs: Last Vital Signs Temp 98.7 F 05/29/22 12:27 Pulse 76 05/30/22 11:29 Resp 20 05/30/22 11:29 BP 108/75 05/30/22 11:29 Pulse Ox 95 05/30/22 11:29 O2 Del Method 05/30/22 11:29 BMI result Body Mass Index 22.1 Const: Other: No acute distress Resp: Other: Clear to auscultation bilaterally no rales rhonchi or wheezes Cardio: Other: No S4; positive S1-S2; no S3 murmurs rubs or gallops GI: Other: Soft nontender nondistended normoactive bowel sounds Extrem: Other: No edema bilaterally Objective Data Active Medications Acetaminophen (Acetaminophen 325 Mg Tablet) 650 mg PO Q6H PRN PRN Reason: Pain, Moderate (Pain Scale 4-6 Last Admin: 05/29/22 18:13 Dose: 650 mg Documented By: PATITO Alprazolam (Alprazolam 0.5 Mg Tablet) 1 mg PO TID [facility] Last Admin: 05/30/22 11:42 Dose: 1 mg Documented By: RAFAEL Amlodipine Besylate (Amlodipine Besylate 10 Mg Tablet) 10 mg PO DAILY [facility]; Protocol Last Admin: 05/30/22 08:59 Dose: 10 mg Documented By: GLO Diphenhydramine HCl (Diphenhydramine Hcl 25 Mg Tablet) 25 mg PO BEDTIME [facility] Last Admin: 05/29/22 20:37 Dose: 25 mg Documented By: SUDHEER Enoxaparin Sodium (Enoxaparin Sodium 40 Mg/0.4 Ml Syringe) 40 mg SUBCUT Q24H [facility] Last Admin: 05/29/22 16:00 Dose: 40 mg Documented By: PATITO Folic Acid (Folic Acid 1 Mg Tablet) 1 mg PO DAILY [facility] Last Admin: 05/30/22 08:59 Dose: 1 mg Documented By: GLO Thiamine HCl 100 mg/ Sodium (Chloride) 101 mls @ 202 mls/hr IV DAILY [facility] Last Infusion: 05/30/22 09:28 Dose: 0 mls/hr Documented By: GLO Ibuprofen (Ibuprofen 600 Mg Tablet) 600 mg PO Q6H PRN PRN Reason: Pain, Mild (Pain Scale 1-3) Last Admin: 05/29/22 18:11 Dose: 600 mg Documented By: PATITO Lisinopril (Lisinopril 20 Mg Tablet) 20 mg PO DAILY [facility]; Protocol Last Admin: 05/30/22 09:00 Dose: 20 mg Documented By: GLO Melatonin (Melatonin 3 Mg Tablet) 9 mg PO DAILY PRN PRN Reason: Insomnia Metoprolol Succinate (Metoprolol Succinate Er 50 Mg Tab.Er.24h) 50 mg PO DAILY [facility]; Protocol Last Admin: 05/30/22 08:59 Dose: 50 mg Documented By: GLO Nicotine (Nicotine 21 Mg Patch.Td24) 21 mg TRANSDERMA DAILY [facility] Last Admin: 05/30/22 09:00 Dose: 21 mg Documented By: GLO Nicotine Polacrilex (Nicotine Polacrilex Lozenge 2 Mg Lozenge) 2 mg BUCCAL Q2H PRN PRN Reason: Nicotine Cravings Ondansetron HCl (Ondansetron Hcl 4 Mg/2 Ml Vial) 4 mg IVPUSH Q8H PRN PRN Reason: Nausea and Vomiting Oxycodone HCl (Oxycodone Hcl Immed Release 5 Mg Tablet) 5 mg PO Q6H PRN PRN Reason: Pain, Moderate (Pain Scale 4-6 Last Admin: 05/29/22 20:36 Dose: 5 mg Documented By: SUDHEER Oxycodone HCl (Oxycodone Hcl Immed Release 5 Mg Tablet) 10 mg PO Q6H PRN PRN Reason: Pain, Severe (Pain Scale 7-10) Pharmacy Consult (Consult Rx Perform Med Rec) 1 each MISCELLANE ONCE PRN PRN Reason: Consult order Pharmacy Consult (Consult Rx Perform Med Rec) 1 each MISCELLANE ONCE PRN PRN Reason: Consult order Pharmacy Consult (Consult Rx Etoh Phenob Po Only) 1 each MISCELLANE ONCE PRN; Protocol PRN Reason: Consult order Phenobarbital (Phenobarbital 15 Mg Tablet) 45 mg PO BID [facility]; Protocol Stop: 05/31/22 21:01 Last Admin: 05/30/22 09:00 Dose: 45 mg Documented By: GLO Phenobarbital (Phenobarbital 15 Mg Tablet) 15 mg PO BID [facility]; Protocol Stop: 06/02/22 21:01 Phenobarbital (Phenobarbital 15 Mg Tablet) 15 mg PO DAILY [facility]; Protocol Stop: 06/04/22 09:01 Polyethylene Glycol/Electrolytes (Peg 3350/Na Sulf,Bicarb,Cl/Kcl 4,000 Ml Soln.Recon) 4,000 ml PO ONCE ONE Stop: 05/30/22 16:01 Sodium Chloride (0.9 % Sodium Chloride Flush 3 Ml Syringe) 3 ml IVFLUSH QSHIFT [facility] Last Admin: 05/30/22 09:01 Dose: 3 ml Documented By: GLO Trazodone HCl (Trazodone Hcl 50 Mg Tablet) 50 mg PO BEDTIME [facility] Last Admin: 05/29/22 20:37 Dose: 50 mg Documented By: JELANI-LOTUSK Labs CBC & Chem 7: 05/29/22 13:10 05/30/22 06:08 Labs: Laboratory Results - last 24 hr 05/29/22 05/29/22 05/30/22 13:10 18:51 06:08 Anion Gap 14 Estim Creat Clear Calc 82.6 Estimated GFR > 60 Random Glucose 95 Calcium 8.5 D Magnesium 1.6 1.5 L Total Creatine Kinase 196 H C-Reactive Protein Hepatitis A IgG Ab Hep Bs Antigen Hep Bs Antibody Hep B Core Total Ab Hepatitis C Ab (EIA) 05/30/22 05/30/22 05/30/22 13:12 13:12 13:12 Anion Gap Estim Creat Clear Calc Estimated GFR Random Glucose Calcium Magnesium Total Creatine Kinase C-Reactive Protein 0.57 H Hepatitis A IgG Ab REACTIVE Hep Bs Antigen Negative Hep Bs Antibody REACTIVE Hep B Core Total Ab Nonreactive Hepatitis C Ab (EIA) Nonreactive Assessment and Plan (1) Alcohol withdrawal: Status: Acute (2) Colitis: Status: Acute (3) HTN (hypertension): Status: Acute (4) Hypomagnesemia: Status: Acute Plan 57 year old male with history of htn, gerd, alcohol dependence, chronic right shoulder pain with RUE weakness, hx colitis, and depression/anxiety presenting to ED via EMS on section 12 bed search from community for SI with plan ongoing since his mother's in October to be admitted for alcohol withdrawal. 1. Alcohol withdrawal r/t severe alcohol dependence -continue phenobarb protocol -Continue CIWA scale -Seizure precautions -IV thiamine and folic acid 2.Depression with SI -1:1 sitter -Continue home trazodone, alprazolam -Continue bed search for BH -Section 12 3.Hypomagnesemia -2mg IV -recheck 4.HTN- controlled -Continue home lisinopril, amlodipine, and metoprolol 5.History colitis (per pt, unknown type) -GI input appreciated - colon as scheduled DVT prophylaxis- Lovenox Full code Requires ongoing hospitalization to treat alcohol withdrawal and volume replacement for colitis Quality Stroke Does the patient have a stroke diagnosis?: No VTE Prior VTE?: No VTE Risk Level:: Medical - moderate - high VTE Device Contraindication: Treatment Not Indicated VTE Drug Contraindication: N/A - Med Ordered
[2022-05-30] MEDS: Enoxaparin Sodium 40 MG/0.4 ML SYRINGE SUBCUT (16:11)
[2022-05-30] MEDS: Magnesium Sulfate/H2O 2 GM/50 ML PIGGYBACK IV (16:33)
[2022-05-30 16:41] VITALS: BP 96/70; PULSE 82; RESP 18; TEMP 36.6; O2SAT 98
[2022-05-30 17:12] LABS: Amphetamine Screen Urine Not Detected (Not Detect); Barbiturates, Urine POSITIVE (Not Detect); Benzodiazepines Screen Urine POSITIVE (Not Detect); Cannabinoid Screen Urine POSITIVE (Not Detect); Cocaine Screen Urine Not Detected (Not Detect); Fentanyl, urine Not Detected (Not Detect); Opiate Screen Urine Not Detected (Not Detect); Phencyclidine Screen Urine Not Detected (Not Detect)
--- NOTE | 2022-05-30 20:20 | PC.NURSE ---
prior to giving GoLytely reviewed GI consult, colonoscopy tentatively scheduled for Thursday - GoLytely scheduled for today, ok to hold per hospitalist - he would like am team to review and make a decision about when it's due. pt is reporting some constipation, hospitalist notified. fecal samples pending.
[2022-05-30] MEDS: diphenhydrAMINE HCL 25 MG TABLET PO (20:47)
[2022-05-30] MEDS: traZODone HCL 50 MG TABLET PO (20:47)
[2022-05-30] MEDS: oxyCODONE HCl Immed Release 5 MG TABLET PO (20:53)
[2022-05-31] MEDS: 0.9 % Sodium Chloride Flush 3 ML SYRINGE IVFLUSH ×2 (01:38→09:05)
--- NOTE | 2022-05-31 01:52 | PC.NURSE ---
attempted to flush IV, iv infiltrated - discontinued. pt requested to hold off on placement tonight and to try in the am.
[2022-05-31] MEDS: oxyCODONE HCl Immed Release 5 MG TABLET 10 MG PO ×2 (04:46→17:54)
[2022-05-31 06:44] LABS: MANUAL DIFF FLAG NO
[2022-05-31 06:51] LABS: Basophils Percent Auto 0.6 % (0-2); Eosinophils Absolute Auto 0.3 X10*3/uL (0.0-0.4); Eosinophils Percent Auto 5.4 % (0-4); Hematocrit 36.2 % (42.0-52.0); Hemoglobin 13.1 g/dl (14.0-18.0); Imm Gran Abs Auto 0.01 X10*3/uL (0.00-0.03); Imm Gran Pct Auto 0.2 % (0.0-0.4); Lymphocytes Absolute Auto 1.4 X10*3/uL (1.2-4.9); Lymphocytes Percent Auto 29.5 % (20-40); Mean Corpuscular HGB Conc 36.2 g/dl (31.0-36.0); Mean Corpuscular Hemoglobin 35.6 pg (27.0-33.0); Mean Corpuscular Volume 98.4 fL (80.0-98.0); Mean Platelet Volume 10.1 fL (9.4-12.4); Monocytes Absolute Auto 0.3 X10*3/uL (0.1-1.2); Monocytes Percent Auto 6.2 % (2-11); Neutrophils Absolute Auto 2.8 x10*3/uL (2.0-8.3); Neutrophils Percent Auto 58.1 % (45-73); Platelet Count 121 X10*3/uL (160-400); Red Blood Count 3.68 X10*6/uL (4.60-5.80); Red Cell Distribution Width 11.6 % (11.0-16.0); White Blood Count 4.8 X10*3/uL (4.8-10.8)
[2022-05-31 07:46] LABS: Alanine Aminotransferase 173 U/L (0-40); Albumin Level 3.7 g/dL (3.5-5.0); Anion Gap 15 (12-20); Aspartate Amino Transferase 165 U/L (5-37); Bilirubin Total 1.5 mg/dL (0.0-1.0); Blood Urea Nitrogen 16 mg/dL (9-16); Carbon Dioxide 28 mmol/L (22-29); Chloride 97 mmol/L (96-108); Creatinine Clr Calc Pharmacy 100.4; Estimated Glomerular Filt Rate > 60; Glucose Fasting 80 mg/dL (60-99); Magnesium 1.7 mg/dL (1.6-2.6); Potassium 3.7 mmol/L (3.3-5.1); Sodium 136 mmol/L (135-145); Total Protein 7.3 g/dL (6.5-8.0)
[2022-05-31 08:41] LABS: Alkaline Phosphatase 152 U/L (39-117); Calcium 9.3 mg/dL (8.4-10.2)
[2022-05-31] MEDS: Folic Acid 1 MG TABLET PO (09:06)
[2022-05-31] MEDS: Metoprolol Succinate ER 50 MG TAB.ER.24H PO (09:06)
[2022-05-31] MEDS: lisinopriL 20 MG TABLET PO (09:06)
[2022-05-31] MEDS: PHENobarbitaL 15 MG TABLET 45 MG PO ×2 (09:07→21:11)
[2022-05-31] MEDS: amLODIPine Besylate 10 MG TABLET PO (09:08)
[2022-05-31] MEDS: Nicotine 21 MG PATCH.TD24 TRANSDERMA (09:08)
[2022-05-31] MEDS: ALPRAZolam 0.5 MG TABLET 1 MG PO ×3 (09:08→21:11)
[2022-05-31] MEDS: oxyCODONE HCl Immed Release 5 MG TABLET PO (09:10)
[2022-05-31] MEDS: Thiamine HCL 100 MG TABLET PO (10:08)
--- NOTE | 2022-05-31 12:07 | P.PNIM_ITS ---
Subjective Subjective Date of Service: 05/31/22 Interval History: No acute issues overnight. Tolerating phenobarb protocol Review of Systems Denies chest pain Denies shortness of breath Denies nausea vomiting diarrhea Denies fever chills Complains of rib pain Physical Exam Vital Signs: Vital Signs: Last Vital Signs Temp 97.8 F 05/30/22 16:41 Pulse 82 05/30/22 16:41 Resp 18 05/30/22 16:41 BP 96/70 05/30/22 16:41 Pulse Ox 98 05/30/22 16:41 O2 Del Method 05/30/22 16:41 BMI result Body Mass Index 22.1 Const: Other: No acute distress Resp: Other: Clear to auscultation bilaterally no rales rhonchi or wheezes Cardio: Other: No S4; positive S1-S2; no S3 murmurs rubs or gallops GI: Other: Soft nontender nondistended normoactive bowel sounds Extrem: Other: No edema bilaterally Objective Data Active Medications Acetaminophen (Acetaminophen 325 Mg Tablet) 650 mg PO Q6H PRN PRN Reason: Pain, Moderate (Pain Scale 4-6 Last Admin: 05/29/22 18:13 Dose: 650 mg Documented By: PATITO Alprazolam (Alprazolam 0.5 Mg Tablet) 1 mg PO TID [facility] Last Admin: 05/31/22 09:08 Dose: 1 mg Documented By: LISBETH Amlodipine Besylate (Amlodipine Besylate 10 Mg Tablet) 10 mg PO DAILY [facility]; Protocol Last Admin: 05/31/22 09:08 Dose: 10 mg Documented By: LISBETH Diphenhydramine HCl (Diphenhydramine Hcl 25 Mg Tablet) 25 mg PO BEDTIME [facility] Last Admin: 05/30/22 20:47 Dose: 25 mg Documented By: ROSMERY Enoxaparin Sodium (Enoxaparin Sodium 40 Mg/0.4 Ml Syringe) 40 mg SUBCUT Q24H [facility] Last Admin: 05/30/22 16:11 Dose: 40 mg Documented By: ROSMERY Folic Acid (Folic Acid 1 Mg Tablet) 1 mg PO DAILY [facility] Last Admin: 05/31/22 09:06 Dose: 1 mg Documented By: LISBETH Ibuprofen (Ibuprofen 600 Mg Tablet) 600 mg PO Q6H PRN PRN Reason: Pain, Mild (Pain Scale 1-3) Last Admin: 05/29/22 18:11 Dose: 600 mg Documented By: PATITO Lisinopril (Lisinopril 20 Mg Tablet) 20 mg PO DAILY [facility]; Protocol Last Admin: 05/31/22 09:06 Dose: 20 mg Documented By: LISBETH Melatonin (Melatonin 3 Mg Tablet) 9 mg PO DAILY PRN PRN Reason: Insomnia Metoprolol Succinate (Metoprolol Succinate Er 50 Mg Tab.Er.24h) 50 mg PO DAILY [facility]; Protocol Last Admin: 05/31/22 09:06 Dose: 50 mg Documented By: LISBETH Nicotine (Nicotine 21 Mg Patch.Td24) 21 mg TRANSDERMA DAILY [facility] Last Admin: 05/31/22 09:08 Dose: 21 mg Documented By: LISBETH Nicotine Polacrilex (Nicotine Polacrilex Lozenge 2 Mg Lozenge) 2 mg BUCCAL Q2H PRN PRN Reason: Nicotine Cravings Ondansetron HCl (Ondansetron Hcl 4 Mg/2 Ml Vial) 4 mg IVPUSH Q8H PRN PRN Reason: Nausea and Vomiting Oxycodone HCl (Oxycodone Hcl Immed Release 5 Mg Tablet) 5 mg PO Q6H PRN PRN Reason: Pain, Moderate (Pain Scale 4-6 Last Admin: 05/31/22 09:10 Dose: 5 mg Documented By: LISBETH Oxycodone HCl (Oxycodone Hcl Immed Release 5 Mg Tablet) 10 mg PO Q6H PRN PRN Reason: Pain, Severe (Pain Scale 7-10) Last Admin: 05/31/22 04:46 Dose: 10 mg Documented By: HAILEY Pharmacy Consult (Consult Rx Perform Med Rec) 1 each MISCELLANE ONCE PRN PRN Reason: Consult order Pharmacy Consult (Consult Rx Perform Med Rec) 1 each MISCELLANE ONCE PRN PRN Reason: Consult order Pharmacy Consult (Consult Rx Etoh Phenob Po Only) 1 each MISCELLANE ONCE PRN; Protocol PRN Reason: Consult order Phenobarbital (Phenobarbital 15 Mg Tablet) 45 mg PO BID [facility]; Protocol Stop: 05/31/22 21:01 Last Admin: 05/31/22 09:07 Dose: 15 mg Documented By: LISBETH Phenobarbital (Phenobarbital 15 Mg Tablet) 15 mg PO BID [facility]; Protocol Stop: 06/02/22 21:01 Phenobarbital (Phenobarbital 15 Mg Tablet) 15 mg PO DAILY [facility]; Protocol Stop: 06/04/22 09:01 Sodium Chloride (0.9 % Sodium Chloride Flush 3 Ml Syringe) 3 ml IVFLUSH QSHIFT [facility] Last Admin: 05/31/22 09:05 Dose: 3 ml Documented By: LISBETH Thiamine HCl (Thiamine Hcl 100 Mg Tablet) 100 mg PO DAILY [facility] Last Admin: 05/31/22 10:08 Dose: 100 mg Documented By: LISBETH Trazodone HCl (Trazodone Hcl 50 Mg Tablet) 50 mg PO BEDTIME [facility] Last Admin: 05/30/22 20:47 Dose: 50 mg Documented By: ROSMERY Labs CBC & Chem 7: 05/31/22 05:43 05/31/22 05:43 Labs: Laboratory Results - last 24 hr 05/30/22 05/30/22 05/30/22 13:12 13:12 13:12 MCV MCH MCHC RDW Plt Count MPV Immature Gran % (Auto) Neut % (Auto) Lymph % (Auto) [place] % (Auto) Eos % (Auto) Baso % (Auto) Lymph # (Auto) [place] # (Auto) Eos # (Auto) Baso # (Auto) Abs Immat Gran (auto) Absolute Neuts (auto) Absolute Nucleated RBC Nucleated RBC % (auto) Anion Gap Estim Creat Clear Calc Estimated GFR Fasting Glucose Calcium Magnesium Total Bilirubin AST ALT Alkaline Phosphatase C-Reactive Protein 0.57 H Total Protein Albumin Urine Opiates Screen Urine Fentanyl Screen Ur Barbiturates Screen Ur Phencyclidine Scrn Ur Amphetamines Screen U Benzodiazepines Scrn Urine Cocaine Screen U Marijuana (THC) Screen Hepatitis A IgG Ab REACTIVE Hep Bs Antigen Negative Hep Bs Antibody REACTIVE Hep B Core Total Ab Nonreactive Hepatitis C Ab (EIA) Nonreactive 05/30/22 05/31/22 05/31/22 16:40 05:43 05:43 MCV 98.4 H MCH 35.6 H MCHC 36.2 H RDW 11.6 Plt Count 121 L MPV 10.1 Immature Gran % (Auto) 0.2 Neut % (Auto) 58.1 Lymph % (Auto) 29.5 [place] % (Auto) 6.2 Eos % (Auto) 5.4 H Baso % (Auto) 0.6 Lymph # (Auto) 1.4 [place] # (Auto) 0.3 Eos # (Auto) 0.3 Baso # (Auto) 0.0 Abs Immat Gran (auto) 0.01 Absolute Neuts (auto) 2.8 Absolute Nucleated RBC 0.000 Nucleated RBC % (auto) 0.0 Anion Gap 15 Estim Creat Clear Calc 100.4 Estimated GFR > 60 Fasting Glucose 80 Calcium 9.3 D Magnesium 1.7 Total Bilirubin 1.5 H AST 165 H ALT 173 H Alkaline Phosphatase 152 H D C-Reactive Protein Total Protein 7.3 Albumin 3.7 Urine Opiates Screen Not Detected Urine Fentanyl Screen Not Detected Ur Barbiturates Screen POSITIVE H Ur Phencyclidine Scrn Not Detected Ur Amphetamines Screen Not Detected U Benzodiazepines Scrn POSITIVE H Urine Cocaine Screen Not Detected U Marijuana (THC) Screen POSITIVE H Hepatitis A IgG Ab Hep Bs Antigen Hep Bs Antibody Hep B Core Total Ab Hepatitis C Ab (EIA) Assessment and Plan (1) Alcohol withdrawal: Status: Acute (2) Colitis: Status: Acute (3) HTN (hypertension): Status: Acute (4) Hypomagnesemia: Status: Acute Plan 57 year old male with history of htn, gerd, alcohol dependence, chronic right shoulder pain with RUE weakness, hx colitis, and depression/anxiety presenting to ED via EMS on section 12 bed search from community for SI with plan ongoing since his mother's in October to be admitted for alcohol withdrawal. 1. Alcohol withdrawal r/t severe alcohol dependence -continue phenobarb protocol -Continue CIWA scale -Seizure precautions... None thus far -IV thiamine and folic acid 2.Depression with SI -1:1 sitter -Continue home trazodone, alprazolam -Continue bed search for BH -Section 12 3.Hypomagnesemia -repleted -continue to follow 4.HTN- controlled -Continue home lisinopril, amlodipine, and metoprolol 5.History colitis (per pt, unknown type) -GI input appreciated - colon as scheduled DVT prophylaxis- Lovenox Full code Requires ongoing hospitalization to treat alcohol withdrawal and volume replacement for colitis Quality Stroke Does the patient have a stroke diagnosis?: No VTE Prior VTE?: No VTE Risk Level:: Medical - moderate - high VTE Device Contraindication: Treatment Not Indicated VTE Drug Contraindication: N/A - Med Ordered
[2022-05-31 12:56] VITALS: BP 99/75; PULSE 67; RESP 16; O2SAT 99
[2022-05-31] MEDS: Enoxaparin Sodium 40 MG/0.4 ML SYRINGE SUBCUT (17:48)
[2022-05-31 20:15] VITALS: BP 107/79; PULSE 84; TEMP 36.6; O2SAT 95
[2022-05-31] MEDS: traZODone HCL 50 MG TABLET PO (21:11)
[2022-05-31] MEDS: Melatonin 3 MG TABLET 9 MG PO (21:11)
[2022-05-31] MEDS: diphenhydrAMINE HCL 25 MG TABLET PO (21:11)
[2022-06-01] VITALS (29 sets, daily range): BP systolic 96–153; BP diastolic 59–103; PULSE 60–116; RESP 14–22; TEMP 34.9–37.8; O2SAT 95–100
[2022-06-01] MEDS: Haloperidol Lactate 5 MG/ML VIAL 10 MG IM (02:05)
--- NOTE | 2022-06-01 02:05 | PC.NURSE ---
0205 - pt placed in 4 point velcro restraints / medication restraint for increased agitation, aggression towards staff, flight risk, inability to follow directions/stay in room. uncooperative with other alternatives. denied po meds, pt very delusional from alcohol withdrawals and lack of sleep for the past few days. security YESI, 2 RNs, and PCT at bedside.
[2022-06-01] MEDS: OLANZapine 10 MG VIAL 5 MG IM ×2 (03:09→03:55)
--- NOTE | 2022-06-01 03:31 | PM.EVENT ---
Event Note Date of Service: 06/01/22 Event Note: Agitation: Patient was agitated and combative, not pre oriented will. Has been spitting at the staff and tried to leave the hospital against medical advice. Lack of insight. Patient had 4 point restraints placed. ER MD has given Haldol 10 mg. Patient is still agitated. Will give 5 mg of Zyprexa. Will re-evaluate
--- NOTE | 2022-06-01 04:30 | PC.NURSE ---
0427 - bilateral lower extremity restraints removed. pt given 10mg haldol IM initially for combative behavior, placed in 4pt restraints, reassessed at 1hr gautam by MD Payton. pt continued in restraints for increased aggression, verbal abuse toward staff, spitting at staff, etc. second medication restraint order placed by hospitalist, 10mg zyprexa IM total given - restraints continued. 2 bilat limb restraints removed at 0427- pt sleeping. skin/cms in tact. vital sings stable. respirations even and unlabored. will continue to monitor and assess for arm restraint removal -
--- NOTE | 2022-06-01 04:55 | PC.NURSE ---
0455 - bilateral arm restraints removed. all 4 restraints now off patient.
[2022-06-01 07:02] LABS: MANUAL DIFF FLAG NO
[2022-06-01 07:07] LABS: Basophils Percent Auto 0.4 % (0-2); Eosinophils Absolute Auto 0.1 X10*3/uL (0.0-0.4); Eosinophils Percent Auto 2.3 % (0-4); Hematocrit 35.1 % (42.0-52.0); Hemoglobin 12.6 g/dl (14.0-18.0); Imm Gran Abs Auto 0.01 X10*3/uL (0.00-0.03); Imm Gran Pct Auto 0.2 % (0.0-0.4); Lymphocytes Absolute Auto 1.3 X10*3/uL (1.2-4.9); Lymphocytes Percent Auto 25.6 % (20-40); Mean Corpuscular HGB Conc 35.9 g/dl (31.0-36.0); Mean Corpuscular Hemoglobin 34.8 pg (27.0-33.0); Mean Platelet Volume 10.2 fL (9.4-12.4); Monocytes Absolute Auto 0.3 X10*3/uL (0.1-1.2); Monocytes Percent Auto 6.4 % (2-11); Neutrophils Absolute Auto 3.4 x10*3/uL (2.0-8.3); Neutrophils Percent Auto 65.1 % (45-73); Platelet Count 126 X10*3/uL (160-400); Red Blood Count 3.62 X10*6/uL (4.60-5.80); Red Cell Distribution Width 11.6 % (11.0-16.0); White Blood Count 5.2 X10*3/uL (4.8-10.8)
[2022-06-01 08:10] LABS: Alanine Aminotransferase 164 U/L (0-40); Albumin Level 3.8 g/dL (3.5-5.0); Alkaline Phosphatase 154 U/L (39-117); Anion Gap 16 (12-20); Aspartate Amino Transferase 129 U/L (5-37); Bilirubin Total 1.7 mg/dL (0.0-1.0); Blood Urea Nitrogen 13 mg/dL (9-16); Calcium 9.1 mg/dL (8.4-10.2); Carbon Dioxide 27 mmol/L (22-29); Chloride 100 mmol/L (96-108); Creatinine Clr Calc Pharmacy 96.8; Estimated Glomerular Filt Rate > 60; Glucose Fasting 92 mg/dL (60-99); Magnesium 1.4 mg/dL (1.6-2.6); Potassium 3.4 mmol/L (3.3-5.1); Sodium 140 mmol/L (135-145); Total Protein 6.9 g/dL (6.5-8.0)
--- NOTE | 2022-06-01 08:14 | PC.NURSE ---
decision to intubate by dr. maldonado. pt is very paranoid, delusional. pt is alert/oriented x 1. security at bedside.
--- NOTE | 2022-06-01 08:28 | PC.NURSE ---
0829 -versed 8mg im given with security dr. maldonado, security and dr. gorman. 0831 - heplock # 20 in l forearm and #20 in r ac.
--- NOTE | 2022-06-01 08:37 | PC.NURSE ---
0837 - pt is on ekg monitor 0838 - vs 99-12-127/90-95% on r/a. 0841 - vs 97-93%-12-100/69. o2 applied 2l/m via n/c 0842 - propofol 20mg ivp x 1
--- NOTE | 2022-06-01 08:50 | PC.NURSE ---
Addendum entered by Sunitha Dillon 06/01/22 09:38: please be aware that the times 1001, 1002 and 1015 are incorrect. time 1001 is actually 0910, 1002 is actually 0912 and 1015 is actually 0915. Original Note: 0850 - sunny wrist restraints applied. propofol 10mcg/mg/hr and ns 1l wide open initiated per dr. philippe. 0901 - propofol 30mg ivp given per dr. maldonado. pt is now sleepy. 0902 - propofol 20mg ivp given per dr. maldonado, pt is now being bagged by resp therapist. vs 115/70-88-98%-17. 0905 - propofol 20mg ivp given per dr maldonado 2ndary to pt being restless 0907 - propofol 30mg ivp given per dr noriega 2ndary to pt still a little restless 0909 - recuronum 40mg ivp iven per . vs 121/69-94-100% r/a-14 1001 - intubated with tube 7.5 at 25 at the lip 1002 - vent setting ac rate 16, tidal volume 450 peep 5 fio2 50%%. capnography 34. 1015 - cxr at bedside
--- NOTE | 2022-06-01 09:20 | PC.NURSE ---
0920 - orograstric tube # 16 placed with auscultation. sunny wrist restraints removed, pt is stable. sunny wrist restraints reapplied pt is twitching sunny hand. 0925 - propofol 15mcg/mg/hr
--- NOTE | 2022-06-01 09:45 | PC.NURSE ---
0945 - hard restraints d/c'd by security. soft restraints applied. hob continues to be at 30 degrees. 0946 - versed 3mg ivp given. 2nd litre of ns infusing. pt is tremolos. vs 182/120-118-20. capnography 34. 0947 - lab at bedside 0950 - propofol increased to 40mc/mg/hr. vs 172/394-899-71-16. capnogragy 34. suctioned by resp therapist. pt is holding onto the bed side rail. pt remains tremulous
--- NOTE | 2022-06-01 09:56 | PC.NURSE ---
IV propofol increased to 50.fighting the tube and hanging onto handrails. frothy white secretions for moderate amount noted per resp. BP 179/108 HR 118 cap at 38. very tremulous. sigala cath placed
--- NOTE | 2022-06-01 10:01 | PC.NURSE ---
Addendum entered by Sunitha Dillon 06/01/22 11:07: 1006 - versed 3mg ivp x 1 given not 30mg Original Note: 1001- pt is intubated and banging on the sunny side rails with closed fists. 1006 - versed 30mg ivp x 1 vs 168/102 100%.
--- NOTE | 2022-06-01 10:07 | PC.NURSE ---
1013 - temperature sensing sigala cathether #16 inserted by rc conroy. initial output 100ml of clear yellow urine., pt was incontinent of urine prior. vs 165/109-120-100%-20
[2022-06-01 10:13] LABS: Creatinine Clr Calc Pharmacy 101.7; Estimated Glomerular Filt Rate > 60
--- NOTE | 2022-06-01 10:27 | PC.NURSE ---
1028 - versed drip 2mg/hr initiated per dr. maldonado. pt continues to be very restless with closed fist thumping sunny side rails, soft restraints to sunny wrist continues.
[2022-06-01] MEDS: 0.9 % Sodium Chloride Flush 3 ML SYRINGE IVFLUSH ×2 (10:39→17:37)
[2022-06-01] MEDS: Midazolam HCl/NS 50 MG/50 ML PLAST..BAG IVCONT (10:41)
--- NOTE | 2022-06-01 10:46 | PC.NURSE ---
PT VERSED INCREASED TO 5MG/HR AT 10:37AM PER DR BERTRAND.
[2022-06-01 10:52] LABS: Appearance Urine Clear; Color Urine Yellow; Glucose Urine UA Negative (Negative); Leukocyte Esterase Urine Negative (Negative); Nitrite Urine Negative (Negative); Specific Gravity - Urine <= 1.005 (1.005-1.025); Urine Blood Negative (Negative); Urine Ketones Negative (Negative); Urine Protein Negative (Neg-Trace)
[2022-06-01 10:57] LABS: Bacteria Urine None Seen (None Seen); Hyaline Casts Urine 0-2 /LPF (0-2); RBC Urine 0-2 /HPF (0-2); Squamous Epithelial Cell Urine 0-2 /HPF (0-2); WBC Urine 0-5 /HPF (0-5)
--- NOTE | 2022-06-01 10:57 | PC.NURSE ---
Mother at bedside . patient acting appropriate for developmental age . RT has provided neb treatment . medicated as ordered . wheezes noted bilateral upper lobes , lower lobes clear throughout . COVID test sent to lab . Mother and patient aware of plan of care .
[2022-06-01] MEDS: PHENobarbitaL sodium 130 MG/ML VIAL IV (11:11)
--- NOTE | 2022-06-01 11:18 | PC.NURSE ---
DR BERTRAND GAVE AN ADDITIONAL PROPOFOL 30 MG IVP bp 124/76 hr 103/16 o2 100
[2022-06-01] MEDS: Midazolam HCl/PF 2 MG/2 ML VIAL 3 MG IVPUSH ×2 (11:23→11:24)
--- NOTE | 2022-06-01 11:53 | PC.NURSE ---
PER DR BERTRAND, INCREASE THE VERSED DRIP TO 10MG/HR, THIS WAS DONE AT 11:46. PT WITH EXTREME AGITATION AND ATTEMPTING TO SIT UP, FULLY AWAKE bp 130/91 hr 103
--- NOTE | 2022-06-01 11:57 | PC.NURSE ---
i DID REMIND DR BERTRAND ABOUT THE MAG OF 1.4 AND MAG IS NOW ORDERED BUT HAVE TO DO ANOTHER iv LINE; UNABLE TO DO SO PT IS SEVERELY AGITATED STILL. NOE IN ICU IS CONCERNED ABOUT CARDIAC STATUS WITHOUT THE MAG
--- NOTE | 2022-06-01 12:06 | PC.NURSE ---
ANOTHER IV WAS ATTEMPTED BUT PT TOO AGITATED AND MOVED HIS ARM WHICH DISLODGED THE CATH.
--- NOTE | 2022-06-01 12:18 | PC.NURSE ---
3MG OF PROPOFOL GIVEN PER DR BERTRAND. PT VERY AGITATED AND FIGHTING THE VENT
--- NOTE | 2022-06-01 12:28 | PC.NURSE ---
WHELAN CATH PLACED AND 800CC OF URINE EMPTIED FROM [facility].
[2022-06-01] MEDS: propofoL 200 MG/20 ML VIAL 30 MG IVPUSH ×2 (12:29→12:31)
[2022-06-01] MEDS: Midazolam HCl/NS 50 MG/50 ML PLAST..BAG 10 MG IVCONT ×3 (12:48→23:26)
[2022-06-01] MEDS: propofoL 1,000 MG/100 ML VIAL 20.41 MG IVCONT (12:48)
[2022-06-01] MEDS: Magnesium Sulfate/H2O 2 GM/50 ML PIGGYBACK IV (12:51)
[2022-06-01] MEDS: Thiamine HCL 100 MG in 0.9 % Sodium Chloride 100 ML 202 MG IV (13:02)
--- NOTE | 2022-06-01 15:11 | W.PM.CCCN ---
History of Present Illness Data of Consult Service Date: 06/01/22 Requesting physician: Quintin Schmid Primary Care Provider: Ga Adkins MD [facility] Reason for consult: altered mental status 57-year-old male with significant background depression known psychiatric history also known very heavy continuous alcoholic who was admitted on the and last drank on the and all of a sudden last night mental status changed patient became disoriented to place and time highly agitated potentially somewhat delusional and paranoid looking and oddly did not have any of the physical stigmata of withdrawal although he has not had his maintenance benzodiazepine to 2 days and it has been 4 days since his last alcoholic beverage so because of his combativeness and potential threat to himself and of course to the rest of the staff in the hospital we sedated more deeply and then needed to correct to protect his airway and we are able to therefore get the all the sedation necessary to cover any potential withdrawal issue and keep him intubated and daily extrication from medication to assess his cognitive function extubated soon as possible and then have Psychiatry come see him and I did have a long discussion with the psychiatrist today about the plan Review of Systems Review of Systems: Yes Unobtainable due to mental status PMFSH Past Medical History Medical History (Updated 06/01/22 @ 15:16 by Shirley Alexandra MD) Chronic diarrhea GERD (gastroesophageal reflux disease) Heavy tobacco smoker History of colitis HTN (hypertension) Family History Family History Mother Alzheimer disease Multiple sclerosis Social History Social History Alcohol intake: current Alcohol intake frequency: 3 or more drinks per day Patient Tobacco Use Status: Current everyday Tobacco user Cigarette Packs Per Day: 2 Substance Use Type: Marijuana Meds Allergies Allergy/AdvReac Type Severity Reaction Status Date / Time aspirin [ASA] Allergy Unknown FACIAL Unverified 05/31/20 16:36 SWELLING Penicillins [PENICILLINS] Allergy Unknown HIVES Unverified 05/31/20 16:36 tramadol [TRAMADOL] AdvReac Unknown NAUSEA & Unverified 05/30/22 10:16 VOMITING Active Medications: Current Medications Enoxaparin Sodium (Enoxaparin Sodium 40 Mg/0.4 Ml Syringe) 40 mg SUBCUT Q24H [facility] Last Admin: 05/31/22 17:48 Dose: 40 mg Thiamine HCl 100 mg/ Sodium (Chloride) 101 mls @ 202 mls/hr IV DAILY [facility] Last Infusion: 06/01/22 14:21 Dose: Infused Midazolam HCl (Versed) 50 mg in 50 mls @ 10 mls/hr IVCONT .Q5H [facility] Last Admin: 06/01/22 12:48 Dose: 10 mg/hr, 10 mls/hr Propofol (Diprivan) 1,000 mg in 100 mls @ 0 mls/hr IVCONT .Q0M [facility]; Protocol Last Titration: 06/01/22 14:20 Dose: 40 mcg/kg/min, 16.33 mls/hr Nicotine (Nicotine 21 Mg Patch.Td24) 21 mg TRANSDERMA DAILY [facility] Last Admin: 06/01/22 11:25 Dose: Not Given Pharmacy Consult (Consult Rx Perform Med Rec) 1 each MISCELLANE ONCE PRN PRN Reason: Consult order Pharmacy Consult (Consult Rx Etoh Phenob Po Only) 1 each MISCELLANE ONCE PRN; Protocol PRN Reason: Consult order Phenobarbital Sodium (Phenobarbital Sodium 130 Mg/Ml Vial) 130 mg IV Q6H PRN PRN Reason: AGITATION/RESTLESSNESS Last Admin: 06/01/22 11:11 Dose: 130 mg Sodium Chloride (0.9 % Sodium Chloride Flush 3 Ml Syringe) 3 ml IVFLUSH QSHIFT [facility] Last Admin: 06/01/22 10:39 Dose: 3 ml Home Medications Medication Instructions Recorded Confirmed Last Taken Type acetaminophen 325 mg tablet 325 mg PO DAILY PRN Pain 05/29/22 05/29/22 Unknown History alprazolam 1 mg tablet 1 tab PO TID PRN Anxiety 05/29/22 05/29/22 Unknown History amlodipine 10 mg tablet 1 tab PO DAILY 05/29/22 05/29/22 Unknown History diphenhydramine HCl 25 mg capsule 1 cap PO BEDTIME 05/29/22 05/29/22 Unknown History ibuprofen 400 mg tablet 1 tab PO TID 05/29/22 05/29/22 Unknown History lisinopril 20 mg tablet 1 tab PO DAILY 05/29/22 05/29/22 Unknown History melatonin 3 mg tablet 9 mg PO DAILY PRN Insomnia 05/29/22 05/29/22 Unknown History metoprolol succinate 50 mg 1 tab PO DAILY 05/29/22 05/29/22 Unknown History tablet,extended release 24 hr pantoprazole 40 mg tablet,delayed 1 tab PO DAILY 05/29/22 05/29/22 Unknown History release trazodone 50 mg tablet 1 tab PO BEDTIME 05/29/22 05/29/22 Unknown History Physical Exam Vital Signs: Vital Signs: Last Vital Signs Temp 100.0 F 06/01/22 12:21 Pulse 81 06/01/22 14:00 Resp 16 06/01/22 14:00 BP 107/72 06/01/22 14:00 Pulse Ox 99 06/01/22 14:00 O2 Del Method 06/01/22 14:00 FiO2 30 06/01/22 14:00 BMI result Body Mass Index 22.1 normal sinus rhythm without acute change good bilateral carotid upstrokes no bruits no neck vein distension chest clear to chest x-ray as well as exam without adventitious sounds abdomen soft without organomegaly skin intact with no livedo Results Labs CBC & Chem 7: 06/01/22 06:27 06/01/22 09:49 Labs: Short CBC 06/01/22 Range/Units 06:27 WBC 5.2 (4.8-10.8) X10*3/uL Hgb 12.6 L (14.0-18.0) g/dl Hct 35.1 L (42.0-52.0) % Plt Count 126 L (160-400) X10*3/uL BMP 06/01/22 06/01/22 06:27 09:49 Sodium 140 Potassium 3.4 Chloride 100 Carbon Dioxide 27 BUN 13 Creatinine 0.82 0.78 Calcium 9.1 Liver Function 06/01/22 Range/Units 06:27 Total Bilirubin 1.7 H (0.0-1.0) mg/dL AST 129 H (5-37) U/L ALT 164 H (0-40) U/L Alkaline Phosphatase 154 H (39-117) U/L Albumin 3.8 (3.5-5.0) g/dL Urine 06/01/22 Range/Units 10:45 Urine Color Yellow Urine Appearance Clear Urine pH 7.0 (5.0-9.0) Ur Specific [place] <= 1.005 (1.005-1.025) Urine Protein Negative (Neg-Trace) mg/dL Urine Glucose (UA) Negative (Negative) mg/dL Assessment and Plan (1) Colitis: Status: Acute (2) Chronic diarrhea: Status: Acute (3) Alcohol withdrawal: Status: Acute (4) Heavy tobacco smoker: Status: Acute (5) GERD (gastroesophageal reflux disease): Status: Acute (6) HTN (hypertension): Status: Acute (7) History of colitis: Status: Acute (8) Hypomagnesemia: Status: Acute (9) Depression with suicidal ideation: Status: Acute (10) Chronic alcohol abuse: Status: Acute (11) Benzodiazepine withdrawal: Status: Acute Plan again we will keep sedated on a combination of Versed drip and propofol drip as well as p.r.n. use of but of phenobarbital and of course he will remain with airway protection by the ventilator to remove him from sit sedation each morning with an assessment of cognitive function and potential to wean from the ventilator
--- NOTE | 2022-06-01 15:18 | W.PM.CCHP ---
Procedures Date of Service Date of Service: 06/01/22 Intubation Intubation Comments: with the of sedation on multiple medications there was a need for airway protection so utilizing glide scope guidance intubation with a 7.5 endotracheal tube with excellent visualization of the vocal cords took place without complication Consent for Procedure: Emergent-no informed consent obtained Time out performed: Yes Sedative: propofol Paralytic: rocuronium Mg given: 40 Laryngoscope: fiber optic video scope ET tube size: 7.5 ET tube uncuffed: No Tube secured depth (cm): 25 Tube secured location: lips Tube placement confirmation: visualized tube passing through cords, equal breath sounds bilaterally, no breath sounds over epigastrium and confirmation by capnometry Patient tolerated procedure: well and no complications Intubation complications: none
[2022-06-01 15:59] LABS: Ammonia 37 umol/L (13-55)
[2022-06-01 16:03] LABS: Prothrombin Time 10.9 SEC (10.0-13.1)
[2022-06-01 16:05] LABS: Partial Thromboplastin Time 29.8 SEC (26.0-36.4)
[2022-06-01] MEDS: HYDROmorphone HCl 1 MG/ML SYRINGE IVPUSH (17:38)
[2022-06-01] MEDS: Enoxaparin Sodium 40 MG/0.4 ML SYRINGE SUBCUT (17:38)
[2022-06-01 18:11] LABS: Glucose, Whole Blood 97 mg/dL (60-115)
[2022-06-01] MEDS: propofoL 1,000 MG/100 ML VIAL 14.29 MG IVCONT (18:33)
[2022-06-01] MEDS: HYDROmorphone HCl 0.5 MG/0.5 ML SYRINGE IVPUSH (21:32)
--- NOTE | 2022-06-01 22:40 | PC.NURSE ---
Addendum entered by Chacho Spence RN 06/01/22 22:45: Urine with greenish hue, PA aware. Original Note: Admitted from ED around 13:00. Patient was intubated in ED. #7.5 ETT 25 cm At the lip. He was treated with IV push propofol and IV phenobarbital in the ED. On arrival, patient placed on PSV settings by RT; then was setting off apneic alarms too frequently, and was placed on AC settings, and has continued on 16; 450; 5; and 30%. At 20:15, PA titrated FiO2 down to 21%, Patient has been in the high 90's SpO2. occasionally becomes tremulous and has twice required one time doses of IV dilaudid, 1 mg, then 0.5 mg associated with tremulousness. Patient also endoresed pain with a head nod, and also was rigid through extremities. Is seen to move all extremities. Is restless after repositioning. PERRL 2 mm, sluggish. No tracking, postive cough and gag. Patient provided with 1:1 sitter after discussion with MD and nursing vehicle maintenance supervisor, related to SI. Patient is unable to respond to questions, psych MD came to eval and patient was not appropriate today. atient continuues on 10 IV midazolam gtt and 35 IV propofol gtt. Vital signs unremarkable. Skin is intact. No BM. OGT is clamped. minimal inline secretions.
[2022-06-02] VITALS (31 sets, daily range): BP systolic 95–134; BP diastolic 59–81; PULSE 59–109; RESP 12–35; TEMP 35–38.1; O2SAT 94–100; BMI 22.1
[2022-06-02] MEDS: propofoL 1,000 MG/100 ML VIAL 14.29 MG IVCONT (01:27)
[2022-06-02] MEDS: Midazolam HCl/NS 50 MG/50 ML PLAST..BAG 10 MG IVCONT (04:35)
[2022-06-02] MEDS: propofoL 1,000 MG/100 ML VIAL 16.33 MG IVCONT ×2 (04:43→12:06)
[2022-06-02] MEDS: HYDROmorphone HCl 1 MG/ML SYRINGE IVPUSH (05:22)
[2022-06-02] MEDS: Midazolam HCl/PF 2 MG/2 ML VIAL 5 MG IVPUSH (05:22)
[2022-06-02 05:35] LABS: VBG Base Excess 3.8 mmol/L; VBG HCO3 24 mmol/L (22-26); VBG pCO2 27 mmHg; VBG pH 7.56 (7.32-7.43); VBG pO2 34 mmHg
[2022-06-02 06:00] LABS: Basophils Percent Auto 0.3 % (0-2); Eosinophils Absolute Auto 0.1 X10*3/uL (0.0-0.4); Eosinophils Percent Auto 1.7 % (0-4); Hemoglobin 12.4 g/dl (14.0-18.0); Imm Gran Abs Auto 0.04 X10*3/uL (0.00-0.03); Imm Gran Pct Auto 0.6 % (0.0-0.4); Lymphocytes Absolute Auto 1.5 X10*3/uL (1.2-4.9); Lymphocytes Percent Auto 20.7 % (20-40); MANUAL DIFF FLAG SCAN; Mean Corpuscular HGB Conc 36.5 g/dl (31.0-36.0); Mean Corpuscular Hemoglobin 35.9 pg (27.0-33.0); Mean Corpuscular Volume 98.6 fL (80.0-98.0); Mean Platelet Volume 10.5 fL (9.4-12.4); Monocytes Absolute Auto 0.6 X10*3/uL (0.1-1.2); Monocytes Percent Auto 8.4 % (2-11); Neutrophils Absolute Auto 4.8 x10*3/uL (2.0-8.3); Neutrophils Percent Auto 68.3 % (45-73); PLT CLUMP 1; Red Blood Count 3.45 X10*6/uL (4.60-5.80); Red Cell Distribution Width 11.9 % (11.0-16.0); SCAN SMEAR FLAG 1
[2022-06-02] MEDS: Magnesium Sulfate/H2O 2 GM/50 ML PIGGYBACK IV (06:13)
[2022-06-02] MEDS: PHENobarbitaL sodium 130 MG/ML VIAL IV ×2 (06:13→20:15)
[2022-06-02] MEDS: Pantoprazole Sodium 40 MG/10 ML VIAL IVPUSH (06:21)
[2022-06-02 06:37] LABS: Venous Blood Gas Refer to POC result
[2022-06-02 06:46] LABS: SLIDE REVIEW VERIFIED
--- NOTE | 2022-06-02 07:16 | MHC.PIE ---
Shift eval 3a-7a - Patient severely agitated, attempting to sit up in bed, pull out tubes. Patient unable to be repositioned r/t safety. Maxed on propofol, increased versed drip to 15mg/hr per Dilshad DE LA GARZA order. Additional 1mg IVP dilaudid ordered and given. PRN pheno given - Patient sedated at this time. Initially unable to draw labs, finger stick done, labs hemolyzed, redrawn once sedated without issue. Patient has sitter at bedside for SI. Patient tolerating vent settings - no issue with O2sat, BP, map >65 - stable.
[2022-06-02 07:38] LABS: Alanine Aminotransferase 117 U/L (0-40); Albumin Level 3.2 g/dL (3.5-5.0); Alkaline Phosphatase 136 U/L (39-117); Aspartate Amino Transferase 87 U/L (5-37); Bilirubin Total 1.4 mg/dL (0.0-1.0); Blood Urea Nitrogen 13 mg/dL (9-16); Creatinine Clr Calc Pharmacy 105.7; Estimated Glomerular Filt Rate > 60; Glucose Fasting 83 mg/dL (60-99); Magnesium 1.7 mg/dL (1.6-2.6); Phosphorus 2.8 mg/dL (2.7-4.5); Total Protein 5.9 g/dL (6.5-8.0)
[2022-06-02] MEDS: Midazolam HCl/NS 50 MG/50 ML PLAST..BAG 15 MG IVCONT ×6 (07:44→23:41)
[2022-06-02] MEDS: propofoL 1,000 MG/100 ML VIAL 20.41 MG IVCONT ×3 (07:46→20:25)
[2022-06-02 07:56] LABS: Anion Gap 14 (12-20); Calcium 8.3 mg/dL (8.4-10.2); Carbon Dioxide 24 mmol/L (22-29); Chloride 103 mmol/L (96-108); Sodium 138 mmol/L (135-145)
[2022-06-02] MEDS: Thiamine HCL 100 MG in 0.9 % Sodium Chloride 100 ML 202 MG IV (08:59)
[2022-06-02] MEDS: Potassium Chloride Packet 20 MEQ PACKET 40 MEQ PO (10:06)
[2022-06-02] MEDS: KCl 20 mEq in 0.9 % Sodium ChL 20 MEQ/1,000 ML IV.SOLN 80 MEQ IVCONT (14:40)
[2022-06-02] MEDS: Enoxaparin Sodium 40 MG/0.4 ML SYRINGE SUBCUT (14:45)
[2022-06-02] MEDS: 0.9 % Sodium Chloride Flush 3 ML SYRINGE IVFLUSH ×2 (14:47→23:47)
--- NOTE | 2022-06-02 16:25 | PM.CCPN ---
Subjective Subjective Date of Service: 06/02/22 Interval History: 57-year-old male who has severe chronic alcoholism and probably now a resolving acute alcoholic hepatitis and also resolving and replenished hypo magnesemia but was also dependent on oxycodone as well as benzodiazepines so he is currently sedated and intubated because of out of control combative behavior due to delirium probably from combined withdrawal issues and could comfortably sedated today Critical Care Time (minutes): 45 Physical Exam Vital Signs: Vital Signs: Last Vital Signs Temp 98.6 F 06/02/22 16:00 Pulse 85 06/02/22 16:00 Resp 35 H 06/02/22 16:00 BP 103/66 06/02/22 16:00 Pulse Ox 95 06/02/22 16:00 O2 Del Method 06/02/22 16:00 FiO2 30 06/02/22 16:00 BMI result Body Mass Index 22.1 vital signs stable sedated and intubated bedside echo with excellent cardiac function lungs clear without adventitious sounds and by x-ray abdomen is soft good bowel sounds no organomegaly Objective Data Labs CBC & Chem 7: 06/02/22 05:45 06/02/22 06:56 Labs: Laboratory Results - last 24 hr 06/01/22 06/02/22 06/02/22 18:08 05:28 05:45 WBC 7.0 RBC 3.45 L Hgb 12.4 L Hct 34.0 L MCV 98.6 H MCH 35.9 H MCHC 36.5 H RDW 11.9 Plt Count TNP MPV 10.5 Immature Gran % (Auto) 0.6 H Neut % (Auto) 68.3 Lymph % (Auto) 20.7 [place] % (Auto) 8.4 Eos % (Auto) 1.7 Baso % (Auto) 0.3 Lymph # (Auto) 1.5 [place] # (Auto) 0.6 Eos # (Auto) 0.1 Baso # (Auto) 0.0 Abs Immat Gran (auto) 0.04 H Absolute Neuts (auto) 4.8 Absolute Nucleated RBC 0.000 Nucleated RBC % (auto) 0.0 Smear Tech's Comments VERIFIED VBG pH 7.56 H VBG pCO2 27 VBG pO2 34 VBG HCO3 24 VBG O2 Saturation 61.0 VBG Base Excess 3.8 Sodium Potassium Chloride Carbon Dioxide Anion Gap BUN Creatinine Estim Creat Clear Calc Estimated GFR POC Glucose 97 Random Glucose Fasting Glucose Calcium Phosphorus Magnesium Total Bilirubin AST ALT Alkaline Phosphatase Total Protein Albumin 06/02/22 06:56 WBC RBC Hgb Hct MCV MCH MCHC RDW Plt Count MPV Immature Gran % (Auto) Neut % (Auto) Lymph % (Auto) [place] % (Auto) Eos % (Auto) Baso % (Auto) Lymph # (Auto) [place] # (Auto) Eos # (Auto) Baso # (Auto) Abs Immat Gran (auto) Absolute Neuts (auto) Absolute Nucleated RBC Nucleated RBC % (auto) Smear Tech's Comments VBG pH VBG pCO2 VBG pO2 VBG HCO3 VBG O2 Saturation VBG Base Excess Sodium 138 Potassium 3.0 L Chloride 103 Carbon Dioxide 24 Anion Gap 14 BUN 13 Creatinine 0.75 Estim Creat Clear Calc 105.7 Estimated GFR > 60 POC Glucose Random Glucose TNP Fasting Glucose 83 Calcium 8.3 L D Phosphorus 2.8 Magnesium 1.7 Total Bilirubin 1.4 H AST 87 H ALT 117 H Alkaline Phosphatase 136 H Total Protein 5.9 L Albumin 3.2 L Progress Note: A&P Assessment and plan (1) Benzodiazepine withdrawal: Status: Acute (2) Colitis: Status: Acute (3) Chronic diarrhea: Status: Acute (4) Alcohol withdrawal: Status: Acute (5) Heavy tobacco smoker: Status: Acute (6) GERD (gastroesophageal reflux disease): Status: Acute (7) HTN (hypertension): Status: Acute (8) History of colitis: Status: Acute (9) Hypomagnesemia: Status: Acute (10) Depression with suicidal ideation: Status: Acute (11) Chronic alcohol abuse: Status: Acute Plan the plan is as before be maintain propofol and Versed and as well as continued q.6 hourly phenobarbital potentially reassess his cognitive function in the morning Quality Stroke Does the patient have a stroke diagnosis?: No VTE Prior VTE?: No VTE Risk Level:: Medical - moderate - high VTE Device Contraindication: Treatment Not Indicated VTE Drug Contraindication: N/A - Med Ordered
[2022-06-02] MEDS: Chlorhexidine Gluc Oral Rinse 15 ML MOUTHWASH BUCCAL ×2 (16:49→20:24)
--- NOTE | 2022-06-02 18:50 | PC.NURSE ---
ATTEMPTED TO TITRATE SEDATION - NOT TOLERATED WELL. PATIENT WOULD BECOME SEVERELY AGITATED/ PULLING ON LINES/ ATTEMPTING TO REMOVE AIRWAY - SEE EMAR. SITTER REMAINS BEDSIDE. TUBE FEEDS STARTED ORDERED AT 1200 - TOLERATING WELL.
[2022-06-02] MEDS: fentaNYL citrate/PF 100 MCG/2 ML VIAL 50 MCG IVPUSH (20:19)
[2022-06-02] MEDS: Nicotine 21 MG PATCH.TD24 TRANSDERMA (21:59)
[2022-06-02] MEDS: fentaNYL citrate/NS 1,000 MCG/100 ML PLAST..BAG 2.5 MCG IVCONT (22:17)
--- NOTE | 2022-06-02 22:45 | W.PM.CCHP ---
Procedures Date of Service Date of Service: 06/02/22 Central Line Placement Right IJ: Central Line Comments: venous access Consent for Procedure: Emergent-no informed consent obtained Time out performed: Yes Sterile Technique Used: Yes Patient placed on monitor/pulse ox: Yes MD prep: mask, gown and gloves Central line prep: Chlorhexidine scrub and sterile drapes applied Ultrasound used for placement: Yes Central line lumen inserted: triple Post procedure: sutured in place, good blood return, all ports aspirated, flushed, capped and sterile dressing applied Post procedure x-ray: tip of catheter in good position and no pneumothorax seen Patient tolerated procedure: well and no complications Complications: none
[2022-06-03] VITALS (31 sets, daily range): BP systolic 74–164; BP diastolic 39–105; PULSE 78–140; RESP 11–24; TEMP 34.8–38.9; O2SAT 88–98; BMI 22.8
[2022-06-03] MEDS: propofoL 1,000 MG/100 ML VIAL 16.33 MG IVCONT ×2 (01:35→05:43)
[2022-06-03] MEDS: Ibuprofen 600 MG TABLET PO (01:40)
[2022-06-03] MEDS: Midazolam HCl/NS 50 MG/50 ML PLAST..BAG 12 MG IVCONT ×3 (02:59→12:39)
[2022-06-03] MEDS: KCl 20 mEq in 0.9 % Sodium ChL 20 MEQ/1,000 ML IV.SOLN 80 MEQ IVCONT (03:16)
[2022-06-03 05:27] LABS: VBG Base Excess 0.9 mmol/L; VBG HCO3 25 mmol/L (22-26); VBG pCO2 37 mmHg; VBG pH 7.42 (7.32-7.43); VBG pO2 41 mmHg
[2022-06-03 05:31] LABS: MANUAL DIFF FLAG NO
[2022-06-03 05:35] LABS: Basophils Percent Auto 0.3 % (0-2); Hemoglobin 10.6 g/dl (14.0-18.0); Monocytes Absolute Auto 0.4 X10*3/uL (0.1-1.2); PLT CLUMP 1; SCAN SMEAR FLAG 1
[2022-06-03 05:37] LABS: Eosinophils Absolute Auto 0.1 X10*3/uL (0.0-0.4); Eosinophils Percent Auto 1.9 % (0-4); Hematocrit 29.3 % (42.0-52.0); Imm Gran Abs Auto 0.03 X10*3/uL (0.00-0.03); Imm Gran Pct Auto 0.5 % (0.0-0.4); Lymphocytes Absolute Auto 0.7 X10*3/uL (1.2-4.9); Lymphocytes Percent Auto 11.2 % (20-40); Mean Corpuscular HGB Conc 36.2 g/dl (31.0-36.0); Mean Corpuscular Hemoglobin 35.8 pg (27.0-33.0); Mean Platelet Volume 9.7 fL (9.4-12.4); Monocytes Percent Auto 7.2 % (2-11); Neutrophils Absolute Auto 4.6 x10*3/uL (2.0-8.3); Neutrophils Percent Auto 78.9 % (45-73); Red Blood Count 2.96 X10*6/uL (4.60-5.80); Red Cell Distribution Width 11.9 % (11.0-16.0)
[2022-06-03 05:38] LABS: Platelet Count 137 X10*3/uL (160-400); White Blood Count 5.8 X10*3/uL (4.8-10.8)
[2022-06-03] MEDS: fentaNYL citrate/NS 1,000 MCG/100 ML PLAST..BAG 7.5 MCG IVCONT (05:43)
[2022-06-03] MEDS: Pantoprazole Sodium 40 MG/10 ML VIAL IVPUSH (05:45)
[2022-06-03 06:04] LABS: Alanine Aminotransferase 103 U/L (0-40); Alkaline Phosphatase 170 U/L (39-117); Anion Gap 11 (12-20); Aspartate Amino Transferase 70 U/L (5-37); Bilirubin Total 1.5 mg/dL (0.0-1.0); Blood Urea Nitrogen 11 mg/dL (9-16); Carbon Dioxide 24 mmol/L (22-29); Chloride 103 mmol/L (96-108); Estimated Glomerular Filt Rate > 60; Glucose Random 127 mg/dL (60-115); Magnesium 1.5 mg/dL (1.6-2.6); Phosphorus 2.5 mg/dL (2.7-4.5); Potassium 3.5 mmol/L (3.3-5.1); Sodium 134 mmol/L (135-145); Total Protein 5.6 g/dL (6.5-8.0)
--- NOTE | 2022-06-03 06:34 | PC.NURSE ---
ASSUMED CARE OF PT AT 1900. PT VERY RESTLESS ON PROPOFOL 50 MCG AND VERSED 15 MG. HE WOULD TRY TO SIT UP IN BED. RECEIVED FENTANYL 50 MCG IVP AND PHENOBARBITOL IVP WITH SOME EFFECT BUT STILL RESTLESS AND AGITATED WITH CARE. DUE TO CONTINUED AGITATION AND VENT DYSYNCHRONY, IT WAS QUESTIONED WHETHER THE PERIPHERAL IV SITES WERE IN GOOD PLACEMENT. TWO IV SITES LEFT ARM WERE D/C'D DUE TO QUESTION OF INFILTRATION. AND LEAKING AT THE SITE. SERINA OLIVER PA-C INSERTED A TLC INTO RIJ WITHOUT COMPLICATION. PT WAS SEDATED WELL AFTER LINE PLACEMENT BUT STILL WOULD GET AGITATED WITH CARE BUT ONCE FINISHED, HE RELAXED. NO RESP DIFFICULTIES ON AC VENT SETTINGS. TEMP 100.4. COOL SPONGE BATH GIVEN AND MOTRIN ORDERED AND GIVEN. TEMP CAME DOWN TO 99.6. U/O GOOD, URINE WITH A GREEN HUE.
[2022-06-03 06:42] LABS: Venous Blood Gas Refer to POC result
[2022-06-03] MEDS: PHENobarbitaL sodium 130 MG/ML VIAL IV (07:59)
[2022-06-03] MEDS: Albuterol Sulfate 7.5 MG, Albuterol Sulfate (0.083%) 2.5 MG 10 MG INHALE (08:17)
[2022-06-03] MEDS: Thiamine HCL 100 MG in 0.9 % Sodium Chloride 100 ML 202 MG IV (08:26)
[2022-06-03] MEDS: Nicotine 21 MG PATCH.TD24 TRANSDERMA (08:38)
[2022-06-03] MEDS: Magnesium Sulfate/D5W 1 GM/100 ML PIGGYBACK IV (08:39)
[2022-06-03] MEDS: Midazolam HCl/PF 2 MG/2 ML VIAL 3 MG IVPUSH (09:00)
--- NOTE | 2022-06-03 09:30 | MHC.CLN ---
F/U PT IS INTUBATED AND SEDATED PT RECEIVING JEVITY 1.0 AT MAX GOAL RATE 55ML/HR WITH 30ML PROSOURCE Q DAY AND 300ML FREE WATER FLUSHES Q 4 HRS PROVIDES 1459KCALS (1998KCALS TOTAL WITH SEDATION; 29KCALS/KG), 73G PROTEIN (1.07G/KG), 2902ML TOTAL WATER FROM FORMULA AND FLUSHES (43ML/KG) NOTED SERUM NA DECREASED-RECOMMEND DECREASING TO 240ML FREE WATER FLUSHES Q 6HRS TO PROVIDE 2062ML TOTAL WATER FROM FORMULA AND FLUSHES (30ML/KG) CONTINUE TO MONITOR TOLERANCE, RESIDUALS AND LYTES
[2022-06-03] MEDS: Midazolam HCl/NS 50 MG/50 ML PLAST..BAG 15 MG IVCONT (09:53)
[2022-06-03] MEDS: propofoL 1,000 MG/100 ML VIAL 20.41 MG IVCONT ×4 (11:06→23:50)
[2022-06-03] MEDS: dexmedeTOMIDidine HCL/NS 400 MCG/100 ML INFUS..BTL 17.55 MCG IVCONT (13:12)
--- NOTE | 2022-06-03 14:03 | MHC.CM.PN ---
Pt continues ventilatory support in ICU following severe ETOH w/d symptoms. Initial d/c plan was for a return to home however, this will be re evalulated once pt extubated and his functional needs can be assessed. CM to follow.
--- NOTE | 2022-06-03 14:23 | PM.CCPN ---
Subjective Subjective Date of Service: 06/03/22 Interval History: 57-year-old male chronically benzodiazepine and oxycodone and alcohol dependent who came in because of suicidal ideation on his 4th day in the hospital had altered mental status became delirious combative highly agitated potentially withdrawal issue from the combination of these habits and required a deep sedation which stent for for the sake of airway protection needed to be intubated and and since that time has remained on IV fluids combination of sedation including propofol and Versed and we tried adding fentanyl and he was still highly agitated breaking through and this is also with the use of q.6 hourly phenobarbital and then eventually will mediated dexmedetomidine it worked very well for him made him much calmer tolerating now the ventilator and perfect synchrony Santana symphony green secretions from his endotracheal tube I thought there might be a right basilar infiltrate but radiology did not believe so the just continue to observe Critical Care Time (minutes): 45 Physical Exam Vital Signs: Vital Signs: Last Vital Signs Temp 100.2 F 06/03/22 13:00 Pulse 87 06/03/22 14:00 Resp 14 06/03/22 14:00 BP 85/52 L 06/03/22 14:00 Pulse Ox 96 06/03/22 14:00 O2 Del Method 06/03/22 14:00 FiO2 30 06/03/22 14:00 BMI result Body Mass Index 22.8 Moves all 4 extremities still highly agitated with persistent delirium Cardiovascular stable bedside echo Lungs without adventitious sounds Abdomen benign no organomegaly Objective Data Labs CBC & Chem 7: 06/03/22 05:13 06/03/22 05:13 Labs: Laboratory Results - last 24 hr 06/03/22 06/03/22 06/03/22 05:13 05:13 05:20 WBC 5.8 RBC 2.96 L Hgb 10.6 L Hct 29.3 L MCV 99.0 H MCH 35.8 H MCHC 36.2 H RDW 11.9 Plt Count 137 L MPV 9.7 Immature Gran % (Auto) 0.5 H Neut % (Auto) 78.9 H Lymph % (Auto) 11.2 L [place] % (Auto) 7.2 Eos % (Auto) 1.9 Baso % (Auto) 0.3 Lymph # (Auto) 0.7 L [place] # (Auto) 0.4 Eos # (Auto) 0.1 Baso # (Auto) 0.0 Abs Immat Gran (auto) 0.03 Absolute Neuts (auto) 4.6 Absolute Nucleated RBC 0.000 Nucleated RBC % (auto) 0.0 VBG pH 7.42 VBG pCO2 37 VBG pO2 41 VBG HCO3 25 VBG O2 Saturation 68.0 VBG Base Excess 0.9 Sodium 134 L Potassium 3.5 Chloride 103 Carbon Dioxide 24 Anion Gap 11 L BUN 11 Creatinine 0.70 Estim Creat Clear Calc 117.0 Estimated GFR > 60 Random Glucose 127 H Calcium 8.0 L Phosphorus 2.5 L Magnesium 1.5 L Total Bilirubin 1.5 H AST 70 H ALT 103 H Alkaline Phosphatase 170 H D Total Protein 5.6 L Albumin 3.0 L Progress Note: A&P Assessment and plan (1) Benzodiazepine withdrawal: Status: Acute (2) Colitis: Status: Acute (3) Chronic diarrhea: Status: Acute (4) Alcohol withdrawal: Status: Acute (5) Heavy tobacco smoker: Status: Acute (6) GERD (gastroesophageal reflux disease): Status: Acute (7) HTN (hypertension): Status: Acute (8) History of colitis: Status: Acute (9) Hypomagnesemia: Status: Acute (10) Depression with suicidal ideation: Status: Acute (11) Chronic alcohol abuse: Status: Acute Plan And plan is to keep month a combination of sedation as above and if it appears that he has got pain issues we can use p.r.n. Dilaudid Quality Stroke Does the patient have a stroke diagnosis?: No VTE Prior VTE?: No VTE Risk Level:: Medical - moderate - high VTE Device Contraindication: Treatment Not Indicated VTE Drug Contraindication: N/A - Med Ordered
[2022-06-03] MEDS: Enoxaparin Sodium 40 MG/0.4 ML SYRINGE SUBCUT (15:28)
[2022-06-03] MEDS: Chlorhexidine Gluc Oral Rinse 15 ML MOUTHWASH BUCCAL ×2 (15:29→21:22)
[2022-06-03] MEDS: Midazolam HCl/NS 50 MG/50 ML PLAST..BAG 10 MG IVCONT ×2 (17:29→21:22)
[2022-06-03] MEDS: dexmedeTOMIDidine HCL/NS 400 MCG/100 ML INFUS..BTL 8.78 MCG IVCONT (21:22)
[2022-06-03] MEDS: Albumin Human 25 % 100 ML IV (23:50)
[2022-06-04] VITALS (30 sets, daily range): BP systolic 93–135; BP diastolic 56–83; PULSE 70–115; RESP 12–36; TEMP 34.7–38.9; O2SAT 76–98; BMI 24.7
[2022-06-04] MEDS: Albumin Human 25 % 100 ML IV (00:57)
[2022-06-04] MEDS: Midazolam HCl/NS 50 MG/50 ML PLAST..BAG 10 MG IVCONT ×2 (02:20→05:59)
[2022-06-04] MEDS: dexmedeTOMIDidine HCL/NS 400 MCG/100 ML INFUS..BTL 17.55 MCG IVCONT (04:01)
[2022-06-04] MEDS: propofoL 1,000 MG/100 ML VIAL 20.41 MG IVCONT (04:01)
[2022-06-04 05:28] LABS: VBG HCO3 23 mmol/L (22-26); VBG pCO2 36 mmHg; VBG pH 7.41 (7.32-7.43); VBG pO2 49 mmHg
[2022-06-04 05:34] LABS: Venous Blood Gas Refer to POC result
[2022-06-04 05:35] LABS: Hematocrit 27.4 % (42.0-52.0); PLT CLUMP 1
[2022-06-04 05:36] LABS: Hemoglobin 9.7 g/dl (14.0-18.0); Mean Corpuscular HGB Conc 35.4 g/dl (31.0-36.0); Mean Corpuscular Hemoglobin 34.9 pg (27.0-33.0); Mean Corpuscular Volume 98.6 fL (80.0-98.0); Mean Platelet Volume 10.1 fL (9.4-12.4); Red Blood Count 2.78 X10*6/uL (4.60-5.80); Red Cell Distribution Width 11.9 % (11.0-16.0)
[2022-06-04 05:44] LABS: White Blood Count 4.8 X10*3/uL (4.8-10.8)
[2022-06-04 05:45] LABS: Platelet Count 140 X10*3/uL (160-400)
[2022-06-04 05:48] LABS: Alanine Aminotransferase 60 U/L (0-40); Albumin Level 3.3 g/dL (3.5-5.0); Alkaline Phosphatase 161 U/L (39-117); Anion Gap 13 (12-20); Aspartate Amino Transferase 29 U/L (5-37); Blood Urea Nitrogen 11 mg/dL (9-16); Calcium 8.3 mg/dL (8.4-10.2); Carbon Dioxide 23 mmol/L (22-29); Chloride 105 mmol/L (96-108); Creatinine Clr Calc Pharmacy 103.6; Estimated Glomerular Filt Rate > 60; Glucose Random 134 mg/dL (60-115); Magnesium 1.7 mg/dL (1.6-2.6); Phosphorus 3.8 mg/dL (2.7-4.5); Sodium 137 mmol/L (135-145); Total Protein 5.4 g/dL (6.5-8.0)
[2022-06-04] MEDS: Pantoprazole Sodium 40 MG/10 ML VIAL IVPUSH (05:59)
[2022-06-04 06:09] LABS: Band Neutrophils Percent 18 % (3-5); Basophils Percent Manual 1 % (0-2); Eosinophils Absolute Manual 0.1 X10*3/uL (0.0-0.4); Eosinophils Percent Manual 3 % (0-4); Lymphocytes Percent Manual 21 % (20-40); Monocytes Absolute Manual 0.3 X10*3/uL (0.1-1.2); Monocytes Percent Manual 7 % (2-11); Neutrophils Absolute Manual 3.3 X10*3/uL (2.0-8.3); Neutrophils Percent Manual 50 % (45-73)
[2022-06-04 06:10] LABS: RBC Morphology NOTED
[2022-06-04 06:14] LABS: Microcytosis 1+ (5-14) /OIF; Polychromasia 1+ (0-2) /OIF
[2022-06-04 06:15] LABS: Platelet Estimate SLIGHTLY DECREASED (NORMAL); Platelet Morphology Comment NORMAL
[2022-06-04] MEDS: 0.9 % Sodium Chloride Flush 3 ML SYRINGE IVFLUSH ×2 (08:41→15:57)
[2022-06-04] MEDS: vancomycin HCL 1,000 MG, vancomycin HCL 750 MG in 0.9 % Sodium Chloride 500 ML 267.5 MG IV (08:44)
[2022-06-04] MEDS: levoFLOXacin/D5W 750 MG/150 ML PIGGYBACK 100 MG IV (08:47)
[2022-06-04] MEDS: Nicotine 21 MG PATCH.TD24 TRANSDERMA (08:54)
[2022-06-04] MEDS: Chlorhexidine Gluc Oral Rinse 15 ML MOUTHWASH BUCCAL ×3 (08:54→20:55)
[2022-06-04] MEDS: Thiamine HCL 100 MG in 0.9 % Sodium Chloride 100 ML 202 MG IV (08:55)
[2022-06-04] MEDS: propofoL 1,000 MG/100 ML VIAL 16.33 MG IVCONT (09:00)
[2022-06-04] MEDS: PHENobarbitaL sodium 130 MG/ML VIAL IV (09:28)
--- NOTE | 2022-06-04 09:35 | P.PNCC_ITS ---
Subjective Subjective Date of Service: 06/04/22 Interval History: 57-year-old male with history of suicidal ideation major depression possible element of psychosis he seemed to express some paranoid delusional issues and but also was chronically a severe alcoholic and chronically takes prescribed Oxy as well as benzodiazepine and after 4 days in the hospital began to display withdrawal symptomatology so he became very combative and and disoriented required to deeper sedation clearly was going to compromise airway respiratory rate was was significantly depressed 8 or less at that point so he required intubation for his airway protection and then we hoped that in a we be able to wean after an attempted sedation holiday to see if cognitive function was properly restored and thus far it has not been the case he is been breaking through with severe agitation a combination of phenobarbital midazolam drip as well as propofol drip and then we we try adding fentanyl drip which did not seem to make much difference and then we added dexmedetomidine that worked very well currently he is down to approximately 0.6 of mics per kilos per hour on the dexmedetomidine and we tried him down to 40 mcg per per kilos on the propofol and down to 8 milligrams/hour on the Versed and thus far it is holding and is doing pretty well bedside echo shows globally normal systolic wall motion of the left ventricle no primary valve or pericardial disease 55% ejection fraction and abdomen a little distended and because is been no bowel movement were going to just start him on milk of magnesia apparently he is tolerating his feedings are no residuals Sputum is becoming more purulent-appearing any obviously has an element of COPD even though we did not get a story on his history but he that is clearly an issue and I believe there is a right lower lobe infiltrate which is new so I am going to treat him he is growing Gram-positive organisms both rods and cocci so I am covering him with 1 empiric dose of vancomycin and 1 dose of Levaquin Critical Care Time (minutes): 45 Physical Exam Vital Signs: Vital Signs: Last Vital Signs Temp 96.8 F 06/04/22 08:00 Pulse 86 06/04/22 09:00 Resp 36 H 06/04/22 09:00 BP 124/82 06/04/22 09:00 Pulse Ox 96 06/04/22 09:00 O2 Del Method 06/04/22 09:00 FiO2 30 06/04/22 09:00 BMI result Body Mass Index 24.7 Sedated and intubated Excellent vital signs and excellent FiO2 with minimal minute ventilation requirement and good bilateral carotid upstrokes no neck vein distension he has under 2 cm inferior vena caval dimension Bedside echo with globally normal systolic wall motion And a min slightly distended good bowel sounds otherwise soft and clearly tolerating his p.o. feedings with no residuals Objective Data Labs CBC & Chem 7: 06/04/22 05:17 06/04/22 05:17 Labs: Laboratory Results - last 24 hr 06/04/22 06/04/22 06/04/22 05:17 05:17 05:22 WBC 4.8 RBC 2.78 L Hgb 9.7 L Hct 27.4 L MCV 98.6 H MCH 34.9 H MCHC 35.4 RDW 11.9 Plt Count 140 L MPV 10.1 Absolute Nucleated RBC 0.000 Nucleated RBC % (auto) 0.0 Neutrophils % (Manual) 50 Band Neutrophils % 18 H Lymphocytes % (Manual) 21 Monocytes % (Manual) 7 Eosinophils % (Manual) 3 Basophils % (Manual) 1 Abs Neuts (Manual) 3.3 Lymphocytes # (Manual) 1.0 L Monocytes # (Manual) 0.3 Eosinophils # (Manual) 0.1 Platelet Estimate SLIGHTLY DECREASED Plt Morphology Comment NORMAL RBC Morphology NOTED Polychromasia 1+ (0-2) Microcytosis 1+ (5-14) VBG pH 7.41 VBG pCO2 36 VBG pO2 49 VBG HCO3 23 VBG O2 Saturation 80.0 VBG Base Excess -1.0 Sodium 137 Potassium 4.0 Chloride 105 Carbon Dioxide 23 Anion Gap 13 BUN 11 Creatinine 0.79 Estim Creat Clear Calc 103.6 Estimated GFR > 60 Random Glucose 134 H Calcium 8.3 L Phosphorus 3.8 Magnesium 1.7 Total Bilirubin 3.0 H AST 29 D ALT 60 H Alkaline Phosphatase 161 H Total Protein 5.4 L Albumin 3.3 L Microbiology Microbiology Results: Microbiology 06/03/22 11:15 Sputum - Suctioned Gram Stain - Final Progress Note: A&P Assessment and plan (1) Benzodiazepine withdrawal: Status: Acute (2) Colitis: Status: Acute (3) Chronic diarrhea: Status: Acute (4) Alcohol withdrawal: Status: Acute (5) Heavy tobacco smoker: Status: Acute (6) GERD (gastroesophageal reflux disease): Status: Acute (7) HTN (hypertension): Status: Acute (8) History of colitis: Status: Acute (9) Hypomagnesemia: Status: Acute (10) Depression with suicidal ideation: Status: Acute (11) Chronic alcohol abuse: Status: Acute Plan So I would love to plan but I do not think today's the day, to start reducing some of his sedation and but I a.m. going to work little by little on the mida zolam 1st because of its presumed accumulation at this point and dexmedetomidine of course will remain on board after I weaned the propofol and the midazolam Quality Stroke Does the patient have a stroke diagnosis?: No VTE Prior VTE?: No VTE Risk Level:: Medical - moderate - high VTE Device Contraindication: Treatment Not Indicated VTE Drug Contraindication: N/A - Med Ordered
[2022-06-04] MEDS: Milk of Magnesia 30 ML ORAL.SUSP PO (09:49)
--- NOTE | 2022-06-04 09:53 | MHC.CLN ---
F/U PT REMAINS INTUBATED AND SEDATED PT RECEIVING JEVITY 1.0 AT MAX GOAL RATE 55ML/HR WITH 30ML PROSOURCE Q DAY AND 240ML FREE WATER FLUSHES Q 60HRS PROVIDES 1459KCALS (1890KCALS TOTAL WITH SEDATION; 28KCALS/KG), 73G PROTEIN (1.07G/KG), 2062ML TOTAL WATER FROM FORMULA AND FLUSHES (30ML/KG) NOTED SERUM NA WNL TODAY NSG REPORTED PT IS TOLERATING TF WITH LOW RESIDUALS CONTINUE TO MONITOR TOLERANCE, RESIDUALS AND LYTES
[2022-06-04] MEDS: Midazolam HCl/NS 50 MG/50 ML PLAST..BAG 7 MG IVCONT (12:04)
[2022-06-04 12:06] LABS: MRSA Nasal PCR NEGATIVE (Negative); SA Nasal PCR POSITIVE (Negative)
[2022-06-04] MEDS: propofoL 1,000 MG/100 ML VIAL 18.37 MG IVCONT ×3 (13:06→22:07)
[2022-06-04] MEDS: dexmedeTOMIDidine HCL/NS 400 MCG/100 ML INFUS..BTL 8.78 MCG IVCONT (13:07)
[2022-06-04] MEDS: Enoxaparin Sodium 40 MG/0.4 ML SYRINGE SUBCUT (15:56)
--- NOTE | 2022-06-04 16:59 | PC.NURSE ---
TITRATED PROPOFOL, VERSED, AND PRECEDEX PER MD TO ACHIEVE RASS OF -3. PATIENT OPENS EYES TO STIMULUS, DOES NOT FOLLOW COMMANDS OR TRACK. ABDOMEN NOTED TO BE ROUND AND FIRM, MD NOTIFIED, MOM GIVEN SEE EMAR, NO EFFECTS AT THIS TIME. OPEN BLISTERS NOTED ON UPPER RIGHT ARM. MD NOTIFIED, WOUND CONSULT PLACED, BARRIER CREAM AND PINK FOAM DRESSING APPLIED. ROTATED AND REPOSITION Q2HR, ORAL CARE SCHEDULED, BATHED.
[2022-06-04] MEDS: fentaNYL citrate/NS 1,000 MCG/100 ML PLAST..BAG 10 MCG IVCONT (19:21)
[2022-06-04] MEDS: dexmedeTOMIDidine HCL/NS 400 MCG/100 ML INFUS..BTL 12.29 MCG IVCONT (20:55)
[2022-06-05] VITALS (22 sets, daily range): BP systolic 89–146; BP diastolic 55–90; PULSE 76–94; RESP 12–28; TEMP 34.9–38.7; O2SAT 91–99; BMI 25.4
[2022-06-05] MEDS: 0.9 % Sodium Chloride Flush 3 ML SYRINGE IVFLUSH ×3 (00:11→15:34)
[2022-06-05] MEDS: fentaNYL citrate/NS 1,000 MCG/100 ML PLAST..BAG 15 MCG IVCONT (01:07)
[2022-06-05] MEDS: propofoL 1,000 MG/100 ML VIAL 16.33 MG IVCONT (02:40)
[2022-06-05] MEDS: dexmedeTOMIDidine HCL/NS 400 MCG/100 ML INFUS..BTL 15.8 MCG IVCONT (02:42)
[2022-06-05 05:19] LABS: VBG Base Excess 1.4 mmol/L; VBG HCO3 25 mmol/L (22-26); VBG pCO2 40 mmHg; VBG pH 7.41 (7.32-7.43); VBG pO2 45 mmHg
[2022-06-05 05:20] LABS: MANUAL DIFF FLAG NO
[2022-06-05 05:24] LABS: Basophils Percent Auto 0.3 % (0-2); Eosinophils Absolute Auto 0.2 X10*3/uL (0.0-0.4); Eosinophils Percent Auto 3.6 % (0-4); Hematocrit 27.6 % (42.0-52.0); Hemoglobin 9.6 g/dl (14.0-18.0); Imm Gran Abs Auto 0.03 X10*3/uL (0.00-0.03); Imm Gran Pct Auto 0.5 % (0.0-0.4); Lymphocytes Absolute Auto 0.9 X10*3/uL (1.2-4.9); Lymphocytes Percent Auto 14.8 % (20-40); Mean Corpuscular HGB Conc 34.8 g/dl (31.0-36.0); Mean Corpuscular Hemoglobin 34.8 pg (27.0-33.0); Mean Platelet Volume 9.9 fL (9.4-12.4); Monocytes Absolute Auto 0.7 X10*3/uL (0.1-1.2); Monocytes Percent Auto 11.5 % (2-11); Neutrophils Percent Auto 69.3 % (45-73); Platelet Count 182 X10*3/uL (160-400); Red Blood Count 2.76 X10*6/uL (4.60-5.80); Red Cell Distribution Width 12.4 % (11.0-16.0); White Blood Count 5.8 X10*3/uL (4.8-10.8)
[2022-06-05] MEDS: Pantoprazole Sodium 40 MG/10 ML VIAL IVPUSH (05:31)
[2022-06-05 05:42] LABS: Venous Blood Gas Refer to POC result
[2022-06-05 05:46] LABS: Alanine Aminotransferase 43 U/L (0-40); Albumin Level 2.9 g/dL (3.5-5.0); Alkaline Phosphatase 148 U/L (39-117); Anion Gap 12 (12-20); Aspartate Amino Transferase 20 U/L (5-37); Bilirubin Total 2.2 mg/dL (0.0-1.0); Blood Urea Nitrogen 11 mg/dL (9-16); Calcium 8.7 mg/dL (8.4-10.2); Carbon Dioxide 25 mmol/L (22-29); Chloride 105 mmol/L (96-108); Creatinine Clr Calc Pharmacy 103.1; Estimated Glomerular Filt Rate > 60; Glucose Random 143 mg/dL (60-115); Magnesium 1.8 mg/dL (1.6-2.6); Phosphorus 2.7 mg/dL (2.7-4.5); Potassium 3.8 mmol/L (3.3-5.1); Sodium 138 mmol/L (135-145); Total Protein 5.1 g/dL (6.5-8.0)
--- NOTE | 2022-06-05 06:33 | PHA.PROG ---
Admission Date/Time: May 29, 2022 14:43 Indication: right lower lobe infiltrate Weight in k.3 kg Adjusted body weight in K.4 KG [place] body weight in K.7 kg Obesity Dosing Indication % IBW: 110% Serum Creatinine - Last 168 Hours 05/29/22 05/30/22 05/31/22 13:10 06:08 05:43 Creatinine 1.17 0.96 0.79 06/01/22 06/01/22 06/02/22 06:27 09:49 06:56 Creatinine 0.82 0.78 0.75 06/03/22 06/04/22 06/05/22 05:13 05:17 05:14 Creatinine 0.70 0.79 0.80 Estimated CrCl and GFR - Last 168 Hours 05/29/22 05/30/22 05/31/22 13:10 06:08 05:43 Estim Creat Clear Calc 67.8 82.6 100.4 Estimated GFR > 60 > 60 > 60 06/01/22 06/01/22 06/02/22 06:27 09:49 06:56 Estim Creat Clear Calc 96.8 101.7 105.7 Estimated GFR > 60 > 60 > 60 06/03/22 06/04/22 06/05/22 05:13 05:17 05:14 Estim Creat Clear Calc 117.0 103.6 103.1 Estimated GFR > 60 > 60 > 60 Vancomycin Loading Dose: 1750 mg Current Vancomycin Dosing Regimen: 1250 mg Q12H Date and Time for next Vancomycin Level to be drawn: 06/06 @ 0600 Pharmacist Comments on Vancomycin Plan: One time vancomycin 1750 mg was given yesterday 06/05 @ 0844. Today will start 1250 mg Q12H starting at 0800. Expected AUC 569 with a trough of 17.5. Since it has been 24 hours since load dose, patient may not be in therapeutic levels prior to 4th dose, but will still get a level drawn prior to 4th dose to access for safety. Renal function is currently stable Pharmacy will monitor renal function daily. Estephania Quintana, Laci Vancomycin dosing will take advantage of [employer] as a clinical decision support tool that uses Bayesian modeling to calculate individual patient's pharmacokinetic parameters and forecast the patient's drug concentration time course with the target goal AUC 24 range of 400 - 600 mg/L/hr.
--- NOTE | 2022-06-05 07:27 | P.PNCC_ITS ---
Subjective Subjective Date of Service: 06/05/22 Critical Care Time (minutes): 45 Physical Exam Vital Signs: Vital Signs: Last Vital Signs Temp 101.5 F H 06/05/22 07:00 Pulse 94 06/05/22 07:00 Resp 13 06/05/22 07:00 BP 137/90 H 06/05/22 07:00 Pulse Ox 92 06/05/22 07:00 O2 Del Method 06/05/22 07:00 FiO2 30 06/05/22 07:00 BMI result Body Mass Index 25.4 Objective Data Labs CBC & Chem 7: 06/05/22 05:14 06/05/22 05:14 Labs: Laboratory Results - last 24 hr 06/04/22 06/05/22 06/05/22 06:26 05:13 05:14 WBC 5.8 RBC 2.76 L Hgb 9.6 L Hct 27.6 L MCV 100.0 H MCH 34.8 H MCHC 34.8 RDW 12.4 Plt Count 182 D MPV 9.9 Immature Gran % (Auto) 0.5 H Neut % (Auto) 69.3 Lymph % (Auto) 14.8 L [place] % (Auto) 11.5 H Eos % (Auto) 3.6 Baso % (Auto) 0.3 Lymph # (Auto) 0.9 L [place] # (Auto) 0.7 Eos # (Auto) 0.2 Baso # (Auto) 0.0 Abs Immat Gran (auto) 0.03 Absolute Neuts (auto) 4.0 Absolute Nucleated RBC 0.000 Nucleated RBC % (auto) 0.0 VBG pH 7.41 VBG pCO2 40 VBG pO2 45 VBG HCO3 25 VBG O2 Saturation 76.0 VBG Base Excess 1.4 Sodium Potassium Chloride Carbon Dioxide Anion Gap BUN Creatinine Estim Creat Clear Calc Estimated GFR Random Glucose Calcium Phosphorus Magnesium Total Bilirubin AST ALT Alkaline Phosphatase Total Protein Albumin Nasal Screen MRSA (PCR) NEGATIVE Nasal S. aureus Screen POSITIVE A Nasal MRSA/S.aureus Interp SEE NOTE 06/05/22 05:14 WBC RBC Hgb Hct MCV MCH MCHC RDW Plt Count MPV Immature Gran % (Auto) Neut % (Auto) Lymph % (Auto) [place] % (Auto) Eos % (Auto) Baso % (Auto) Lymph # (Auto) [place] # (Auto) Eos # (Auto) Baso # (Auto) Abs Immat Gran (auto) Absolute Neuts (auto) Absolute Nucleated RBC Nucleated RBC % (auto) VBG pH VBG pCO2 VBG pO2 VBG HCO3 VBG O2 Saturation VBG Base Excess Sodium 138 Potassium 3.8 Chloride 105 Carbon Dioxide 25 Anion Gap 12 BUN 11 Creatinine 0.80 Estim Creat Clear Calc 103.1 Estimated GFR > 60 Random Glucose 143 H Calcium 8.7 Phosphorus 2.7 Magnesium 1.8 Total Bilirubin 2.2 H AST 20 ALT 43 H Alkaline Phosphatase 148 H Total Protein 5.1 L Albumin 2.9 L Nasal Screen MRSA (PCR) Nasal S. aureus Screen Nasal MRSA/S.aureus Interp Microbiology Microbiology Results: Microbiology 06/03/22 11:15 Sputum - Suctioned Gram Stain - Final 06/03/22 11:15 Sputum - Suctioned Sputum Culture - Preliminary Culture in progress. Quality Stroke Does the patient have a stroke diagnosis?: No VTE Prior VTE?: No VTE Risk Level:: Medical - moderate - high VTE Device Contraindication: Treatment Not Indicated VTE Drug Contraindication: N/A - Med Ordered
[2022-06-05] MEDS: levoFLOXacin/D5W 750 MG/150 ML PIGGYBACK 100 MG IV (07:37)
[2022-06-05] MEDS: Chlorhexidine Gluc Oral Rinse 15 ML MOUTHWASH BUCCAL ×2 (07:37→15:33)
[2022-06-05] MEDS: PHENobarbitaL sodium 130 MG/ML VIAL IV ×2 (07:38→15:33)
[2022-06-05] MEDS: Thiamine HCL 100 MG in 0.9 % Sodium Chloride 100 ML 202 MG IV (07:38)
[2022-06-05] MEDS: dexmedeTOMIDidine HCL/NS 400 MCG/100 ML INFUS..BTL 26.33 MCG IVCONT ×3 (08:02→15:56)
[2022-06-05] MEDS: vancomycin HCL 1,250 MG in 0.9 % Sodium Chloride 250 ML 166.67 MG IV (08:05)
[2022-06-05] MEDS: Nicotine 21 MG PATCH.TD24 TRANSDERMA (08:05)
[2022-06-05] MEDS: propofoL 1,000 MG/100 ML VIAL 20.41 MG IVCONT ×2 (09:22→13:00)
[2022-06-05] MEDS: Albuterol Sulfate (0.083%) 2.5 MG/3 ML VIAL.NEB INHALE ×2 (11:21→15:58)
[2022-06-05] MEDS: Midazolam HCl/PF 2 MG/2 ML VIAL 4 MG IVPUSH (12:00)
--- NOTE | 2022-06-05 12:10 | P.CONWO_ITS ---
History of Present Illness Data of Consult Service Date: 06/05/22 Requesting physician: Shirley Alexandra Primary Care Provider: MD FAROOQ Paredes Reason for consult: Blister left arm This is a 57-year-old male with a history of depression and alcoholism, under treatment for alcohol and benzodiazepine withdrawal, currently intubated and sedated. A bulla was noted on the medial aspect of his left upper arm, etiology unclear. Review of Systems Review of Systems: Yes unobtainable due to endotracheal tube PMFSH Medical History Chronic diarrhea GERD (gastroesophageal reflux disease) Heavy tobacco smoker History of colitis HTN (hypertension) Family History Mother Alzheimer disease Multiple sclerosis Social History Alcohol intake: current Alcohol intake frequency: 3 or more drinks per day Patient Tobacco Use Status: Current everyday Tobacco user Cigarette Packs Per Day: 2 Substance Use Type: Marijuana Meds Allergies Allergy/AdvReac Type Severity Reaction Status Date / Time aspirin [ASA] Allergy Unknown FACIAL Unverified 05/31/20 16:36 SWELLING Penicillins [PENICILLINS] Allergy Unknown HIVES Unverified 05/31/20 16:36 tramadol [TRAMADOL] AdvReac Unknown NAUSEA & Unverified 05/30/22 10:16 VOMITING Active Medications: Current Medications Albuterol Sulfate (Albuterol Sulfate (0.083%) 2.5 Mg/3 Ml Vial.Neb) 2.5 mg INHALE RQ4H WHILE AWAKE [facility] Last Admin: 06/05/22 11:21 Dose: 2.5 mg Chlorhexidine Gluconate (Chlorhexidine Gluc Oral Rinse 15 Ml Mouthwash) 15 ml BUCCAL TID [facility] Last Admin: 06/05/22 07:37 Dose: 15 ml Enoxaparin Sodium (Enoxaparin Sodium 40 Mg/0.4 Ml Syringe) 40 mg SUBCUT Q24H [facility] Last Admin: 06/04/22 15:56 Dose: 40 mg Thiamine HCl 100 mg/ Sodium (Chloride) 101 mls @ 202 mls/hr IV DAILY [facility] Last Infusion: 06/05/22 08:21 Dose: Infused Midazolam HCl (Versed) 50 mg in 50 mls @ 15 mls/hr IVCONT .Q3H20M [facility] Last Admin: 06/05/22 11:14 Dose: Not Given Propofol (Diprivan) 1,000 mg in 100 mls @ 0 mls/hr IVCONT .Q0M [facility]; Protocol Last Admin: 06/05/22 09:22 Dose: 50 mcg/kg/min, 20.41 mls/hr Dexmedetomidine HCl (Precedex) 400 mcg in 100 mls @ 0 mls/hr IVCONT .Q0M [facility]; Protocol Last Admin: 06/05/22 12:00 Dose: 1.5 mcg/kg/hr, 26.33 mls/hr Vancomycin HCl 1,250 mg/ (Sodium Chloride) 250 mls @ 166.667 mls/hr IV Q12H [facility] Last Infusion: 06/05/22 09:35 Dose: Infused Levofloxacin (Levaquin) 750 mg in 150 mls @ 100 mls/hr IV Q24H [facility] Last Infusion: 06/05/22 09:21 Dose: Infused Magnesium Hydroxide (Milk Of Magnesia 30 Ml Oral.Susp) 30 ml PO BID PRN PRN Reason: Constipation Last Admin: 06/04/22 09:49 Dose: 30 ml Naloxone HCl (Naloxone Hcl 0.4 Mg/Ml Vial) 0.2 mg IVPUSH Q2M PRN PRN Reason: Excessive sedation or RR < 8 Nicotine (Nicotine 21 Mg Patch.Td24) 21 mg TRANSDERMA DAILY [facility] Last Admin: 06/05/22 08:05 Dose: 21 mg Pharmacy Consult (Consult Rx Perform Med Rec) 1 each MISCELLANE ONCE PRN PRN Reason: Consult order Pharmacy Consult (Consult Rx Etoh Phenob Po Only) 1 each MISCELLANE ONCE PRN; Protocol PRN Reason: Consult order Pharmacy Consult (Consult Rx Vancomycin Dosing) 1 each MISCELLANE DAILY PRN PRN Reason: Consult order Sodium Chloride (0.9 % Sodium Chloride Flush 3 Ml Syringe) 3 ml IVFLUSH QSHIFT [facility] Last Admin: 06/05/22 07:38 Dose: 3 ml Home Medications Medication Instructions Recorded Confirmed Last Taken Type acetaminophen 325 mg tablet 325 mg PO DAILY PRN Pain 05/29/22 05/29/22 Unknown History alprazolam 1 mg tablet 1 tab PO TID PRN Anxiety 05/29/22 05/29/22 Unknown History amlodipine 10 mg tablet 1 tab PO DAILY 05/29/22 05/29/22 Unknown History diphenhydramine HCl 25 mg capsule 1 cap PO BEDTIME 05/29/22 05/29/22 Unknown History ibuprofen 400 mg tablet 1 tab PO TID 05/29/22 05/29/22 Unknown History lisinopril 20 mg tablet 1 tab PO DAILY 05/29/22 05/29/22 Unknown History melatonin 3 mg tablet 9 mg PO DAILY PRN Insomnia 05/29/22 05/29/22 Unknown H istory metoprolol succinate 50 mg 1 tab PO DAILY 05/29/22 05/29/22 Unknown History tablet,extended release 24 hr pantoprazole 40 mg tablet,delayed 1 tab PO DAILY 05/29/22 05/29/22 Unknown Hi story release trazodone 50 mg tablet 1 tab PO BEDTIME 05/29/22 05/29/22 Unknown History Physical Exam Vital Signs and Narrative: Vital Signs: Last Vital Signs Temp 100.2 F 06/05/22 12:00 Pulse 93 06/05/22 12:00 Resp 12 06/05/22 12:00 BP 136/85 06/05/22 12:00 Pulse Ox 93 06/05/22 12:00 O2 Del Method 06/05/22 12:00 FiO2 30 06/05/22 12:00 BMI result Body Mass Index 25.4 Intubated, restrained, resting quietly in bed Skin: Other: And the medial aspect of the left upper arm, there is an approximately 2 x 2.5 cm area of mildly erythematous skin consistent with site of ruptured bulla. No other sites of skin disruption identified Results Labs CBC and Chem 7: 06/05/22 05:14 06/05/22 05:14 Labs: Laboratory Results - last 24 hr 06/04/22 06/05/22 06/05/22 06:26 05:13 05:14 MCV 100.0 H MCH 34.8 H MCHC 34.8 RDW 12.4 Plt Count 182 D MPV 9.9 Immature Gran % (Auto) 0.5 H Neut % (Auto) 69.3 Lymph % (Auto) 14.8 L Burnet % (Auto) 11.5 H Eos % (Auto) 3.6 Baso % (Auto) 0.3 Lymph # (Auto) 0.9 L Burnet # (Auto) 0.7 Eos # (Auto) 0.2 Baso # (Auto) 0.0 Abs Immat Gran (auto) 0.03 Absolute Neuts (auto) 4.0 Absolute Nucleated RBC 0.000 Nucleated RBC % (auto) 0.0 VBG pH 7.41 VBG pCO2 40 VBG pO2 45 VBG HCO3 25 VBG O2 Saturation 76.0 VBG Base Excess 1.4 Anion Gap Estim Creat Clear Calc Estimated GFR Random Glucose Calcium Phosphorus Magnesium Total Bilirubin AST ALT Alkaline Phosphatase Total Protein Albumin Nasal Screen MRSA (PCR) NEGATIVE Nasal S. aureus Screen POSITIVE A Nasal MRSA/S.aureus Interp SEE NOTE 06/05/22 05:14 MCV MCH MCHC RDW Plt Count MPV Immature Gran % (Auto) Neut % (Auto) Lymph % (Auto) Burnet % (Auto) Eos % (Auto) Baso % (Auto) Lymph # (Auto) Burnet # (Auto) Eos # (Auto) Baso # (Auto) Abs Immat Gran (auto) Absolute Neuts (auto) Absolute Nucleated RBC Nucleated RBC % (auto) VBG pH VBG pCO2 VBG pO2 VBG HCO3 VBG O2 Saturation VBG Base Excess Anion Gap 12 Estim Creat Clear Calc 103.1 Estimated GFR > 60 Random Glucose 143 H Calcium 8.7 Phosphorus 2.7 Magnesium 1.8 Total Bilirubin 2.2 H AST 20 ALT 43 H Alkaline Phosphatase 148 H Total Protein 5.1 L Albumin 2.9 L Nasal Screen MRSA (PCR) Nasal S. aureus Screen Nasal MRSA/S.aureus Interp Imaging Radiologist's Impressions: Impressions Chest X-Ray 06/05/22 08:52 IMPRESSION: Mild increase in areas of atelectasis. ET tube has retracted and is now 7.3 cm above laura. Assessment and Plan (1) Serous bulla of skin: Status: Acute Plan 57-year-old male currently intubated and sedated for treatment of alcohol and benzodiazepine withdrawal who by history had of bulla of the left upper arm. Exam findings are consistent with a ruptured bulla with mild erythematous change of the underlying skin. Would continue current treatment with protective cream and foam dressing for the next several days and then discontinue. Will sign off. Please contact the wound care service if further evaluation is needed. Thank you for asking us to see him.
[2022-06-05] MEDS: Enoxaparin Sodium 40 MG/0.4 ML SYRINGE SUBCUT (15:33)
--- NOTE | 2022-06-05 17:06 | P.DS_ITS ---
DS: Providers Provider Date of Service: 06/05/22 Date of admission: 05/29/22 14:43 Primary care physician: Ga Adkins MD Consults: 05/29/22 19:33 Consult to Gastroenterology Routine Consulting Provider: Rosanne Lord Reason for consultation: colitis 05/29/22 19:54 Consult to Orthopedics Routine Consulting Provider: Zack Griffith Reason for consultation: displaced posterior R rib fractures 06/01/22 03:33 Consult to Psychiatry Routine Consulting Provider: [place] [place] for consultation: Behavioral issue requiring restraints 06/04/22 15:19 Consult to Wound Care Routine Consulting Provider: [facility] [place] [facility] Reason for consultation: LEFT UPPER ARM POPPED BLISTERS - ADVISE AND TREAT 06/05/22 10:52 Consult to Infectious Diseases Routine Consulting Provider: Carina Hood Reason for consultation: restricted abx DS: Transfer Hospital Acceptance Reason for Transfer: Persistent ventilator dependence and persistent lack of contact cognitive function requiring longer sedation and intubation time and will need psychiatric and substance use facility that we cannot provide Name of Facility: [facility] Accepting Provider: Dr. Cade DS: Diagnosis Discharge Diagnosis (1) Serous bulla of skin: Status: Acute (2) Benzodiazepine withdrawal: Status: Acute (3) Colitis: Status: Acute (4) Chronic diarrhea: Status: Acute (5) Alcohol withdrawal: Status: Acute (6) Heavy tobacco smoker: Status: Acute (7) GERD (gastroesophageal reflux disease): Status: Acute (8) HTN (hypertension): Status: Acute (9) Hypomagnesemia: Status: Acute (10) Depression with suicidal ideation: Status: Acute (11) Chronic alcohol abuse: Status: Acute (12) Opiate dependence: Status: Acute (13) Community acquired pneumonia due to Haemophilus influenzae: Status: Acute DS: Summary Hospital Course Hospital Course: Originally came to the hospital under the hospitalist service because of suicidal ideation but before see Psychiatry with see him he had medical issues that needed to be dealt with including significant hypo magnesemia probably related to his alcohol intake and it looked like he had acute alcoholic hepatitis with currently resolving transaminases and total bilirubin and alkaline phosphatase On the 4th day after admission he developed altered mental status became combative delirious and was impossible of course to control in became threatening requiring sedation 1st with it intramuscular Versed and then when we obtained IV lines gave him a little propofol and he definitely required airway protection at that point so he has since remained intubated I believe since the and he developed a low-grade fever very shortly thereafter and there was c learly a very easy intubation with no aspiration and he is now growing a Haemophilus as the predominant organism with 4+ polys as well as methicillin- resistant Staph aureus so he was covered with 1 dose each this morning of vancomycin and meropenem and he does have a penicillin allergy but I believe for the Haemophilus we can probably switch him to a quinolone and continue that along with vancomycin for his pneumonia coverage He has comfortable minute ventilatory requirements and FiO2 as well at about 30- 35% doing well on the ventilator at did not have any benefit with fentanyl on board as a sedation mechanism but between the propofol and Versed the dexmedetomidine in addition was very helpful definitely has kept things more quiet No hemodynamic issues and his renal function is fine but as of this morning as we lowered sedation he still did not have cognitive function still demonstrably confused Status at Discharge Cognitive/behavioral status at discharge: He is sedated and intubated and does not have return of cognitive function yet although he awakens easily Functional status at discharge: bed bound Time Spent with Patient Time attestation: Total time spent providing and/or coordinating discharge services: Discharge coordination time: Greater than 30 minutes Quality: Safe Use of Opioids Does Pt have an Active Cancer Diagnosis on the Problem List?: No Quality: Stroke Does the patient have a stroke diagnosis?: No Physical Exam Vital Signs: Vital Signs: Last Vital Signs Temp 99.5 F 06/05/22 15:00 Pulse 90 06/05/22 16:00 Resp 14 06/05/22 16:00 BP 146/89 H 06/05/22 15:00 Pulse Ox 94 06/05/22 15:00 O2 Del Method 06/05/22 15:00 FiO2 30 06/05/22 16:00 BMI result Body Mass Index 25.4 Pressure 122/78 oxygen saturation 93% in normal sinus rhythm at rate 86 Moves all 4 extremities and awakens easily Good bilateral carotid upstrokes no neck vein distension has a central line for CVP measurement but that has always been 5-6 Bedside cardiac exam 55% ejection fraction and globally normal wall motion normal right heart no primary valve or pericardial disease Chest x-ray with mild bibasilar infiltrates he never had a CT scan Abdomen soft with no organomegaly and he is tolerating his tube feedings Skin is intact no cellulitis no acrocyanosis DS: Data Data Completed and Pending Labs on day of discharge: Laboratory Results - last 24 hr 06/05/22 06/05/22 06/05/22 05:13 05:14 05:14 WBC 5.8 RBC 2.76 L Hgb 9.6 L Hct 27.6 L MCV 100.0 H MCH 34.8 H MCHC 34.8 RDW 12.4 Plt Count 182 D MPV 9.9 Immature Gran % (Auto) 0.5 H Neut % (Auto) 69.3 Lymph % (Auto) 14.8 L [place] % (Auto) 11.5 H Eos % (Auto) 3.6 Baso % (Auto) 0.3 Lymph # (Auto) 0.9 L [place] # (Auto) 0.7 Eos # (Auto) 0.2 Baso # (Auto) 0.0 Abs Immat Gran (auto) 0.03 Absolute Neuts (auto) 4.0 Absolute Nucleated RBC 0.000 Nucleated RBC % (auto) 0.0 VBG pH 7.41 VBG pCO2 40 VBG pO2 45 VBG HCO3 25 VBG O2 Saturation 76.0 VBG Base Excess 1.4 Sodium 138 Potassium 3.8 Chloride 105 Carbon Dioxide 25 Anion Gap 12 BUN 11 Creatinine 0.80 Estim Creat Clear Calc 103.1 Estimated GFR > 60 Random Glucose 143 H Calcium 8.7 Phosphorus 2.7 Magnesium 1.8 Total Bilirubin 2.2 H AST 20 ALT 43 H Alkaline Phosphatase 148 H Total Protein 5.1 L Albumin 2.9 L Preliminary micro results at discharge 06/03/22 11:15 Sputum Culture - Preliminary Sputum - Suctioned Haemophilus influenzae Staphylococcus aureus Discharge Plan Discharge Anticipated Discharge Date/Time: 06/05/22 17:15 Patient Disposition: Xfer Acute Care Hospital Discharge Diagnosis: Multi substance withdrawal including alcohol and benzodiazepine and oxycodone Major depression with suicidal ideation Heavy active smoking with COPD and currently with acute bacterial pneumonia 2 organisms Haemophilus and MRSA Referrals: Ga Adkins MD [Primary Care Provider] - 1 Week Discharge Medications: No Action acetaminophen 325 mg tablet 325 mg PO DAILY PRN (Reason: Pain) trazodone 50 mg tablet 1 tab PO BEDTIME alprazolam 1 mg tablet 1 tab PO TID PRN (Reason: Anxiety) metoprolol succinate 50 mg tablet extended release 24 hr 1 tab PO DAILY lisinopril 20 mg tablet 1 tab PO DAILY melatonin 3 mg tablet 9 mg PO DAILY PRN (Reason: Insomnia) amlodipine 10 mg tablet 1 tab PO DAILY pantoprazole 40 mg tablet,delayed release (DR/EC) 1 tab PO DAILY diphenhydramine HCl 25 mg capsule 1 cap PO BEDTIME ibuprofen 400 mg tablet 1 tab PO TID Discharge Orders: Discharge Order (Routine); Ordered 06/05/22 Ordered By: Shirley Alexandra Activity on Discharge: Rest with bed elevated Stand Alone Forms: Patient Portal Discharge page Care Plan Goals: Maintain sit sedation and intubation and probable antibiotic combination of vancomycin and Levaquin for his pneumonia with daily attempts at sedation holiday to evaluate cognitive function and then attempt to wean the ventilator and ultimately referral to Psychiatry and substance use division Health Concerns: COPD and pneumonia right now are issues his alcoholic hepatitis is resolving Plan of Treatment: As stated above support with sedation and intubation and then evaluate for cognitive function returned and then hopeful it attempt at ventilator weaning and then ultimately to Psychiatry Assessment: Overall he is stable for transfer he has been very comfortable on the ventilator and has had an uncomplicated course and tolerating his tube feedings Patient Instructions: Pneumonia (DC)
--- NOTE | 2022-06-05 18:09 | PC.NURSE ---
Called nephew Steve Boston and spoke with him about his uncle; he stated that they have been looking for him for 10 days. They thought he was in a mental hospital. Informed him that he was being transferred to [facility] the ICU. I called the [facility] ICU and gave them the nephew's name and telephone number. Jim
[2022-06-14 12:39] LABS: Baso%MD 0.2 %; Eos%MD 2.5 %; IG%MD 1.5 %; Lymph%MD 11.6 %; Mono%MD 13.7 %; Neut%MD 70.5 %
== END 2022-06-05 18:05 | disposition short-term general hospital (02) | DRG 432 ==
LOC: HO.ED 14:12 → HO.EDOVER 15:00 → HO.ICU 06-01 10:25
PROVIDERS: Hospitalist; Internal Medicine; Physician Assistant; Physician Assistant Medical; Admitting Provider Physician Assistant; Emergency Provider Emergency Medicine; PCP Family Medicine; Visit Provider Internal Medicine Cardiovascular Disease
DX: K70.10 Alcoholic hepatitis without ascites (principal); J14 Pneumonia due to Hemophilus influenzae; F10.231 Alcohol dependence with withdrawal delirium; R45.851 Suicidal ideations; F11.23 Opioid dependence with withdrawal; F13.231 Sedative, hypnotic or anxiolytic dependence with withdrawal delirium; Z99.11 Dependence on respirator [ventilator] status; K52.9 Noninfective gastroenteritis and colitis, unspecified; I10 Essential (primary) hypertension; E83.42 Hypomagnesemia; F32.A Depression, unspecified; M25.511 Pain in right shoulder; G89.29 Other chronic pain; R23.8 Other skin changes; F41.9 Anxiety disorder, unspecified; F17.210 Nicotine dependence, cigarettes, uncomplicated; Y90.0 Blood alcohol level of less than 20 mg/100 ml; Z20.822 Contact with and (suspected) exposure to COVID-19; Z78.1 Physical restraint status; Z88.0 Allergy status to penicillin; Z88.5 Allergy status to narcotic agent; Z88.6 Allergy status to analgesic agent; Z79.899 Other long term (current) drug therapy
CPT/HCPCS: 36415; 71045; 71101; 73030; 74176; 80048; 80053; 80076; 80307; 81001; 82077; 82140; 82550; 82565; 82803; 82947; 83690; 83735; 84100; 85007; 85025; 85027; 85610; 85730; 86140; 86704; 86706; 86708; 86803; 87070; 87077; 87185; 87186; 87205; 87340; 87635; 87640; 87641; 93005; 94002; 94003; 94640; 99285; J1170; J1650; J1956; J2185; J2250; J2560; J3010; J3370; J3411; J3475; P9047; Q0163

== ENCOUNTER 2023-04-09 20:15 | Inpatient (IN) | payer OTHER, SELFPAY ==
--- NOTE | ~2023-04-09 | CT_ITS ---
EXAMINATION: CT head/brain wo IV con CLINICAL INFORMATION: Reason for Exam new onset music hallucination COMPARISON: None. TECHNIQUE: Contiguous axial imaging was performed from the skull base to vertex without intravenous contrast. Sagittal and coronal reformatted images were obtained. This CT examination was performed using dose optimization techniques as appropriate, variously including the following: * Automated exposure control * Adjustment of mA and/or kV according to patient size (this includes techniques or standardized protocols for targeted exams where dose is matched to indication/reason for exam; i.e. extremities or head) Use of iterative reconstruction technique DLP: 704.85 mGy-cm FINDINGS: No acute osseous or soft tissue abnormality. The mastoid air cells and visualized portions of the paranasal sinuses are well aerated. There is no evidence of acute intracranial hemorrhage or territorial infarction. No abnormal mass effect or midline shift is seen. Griffin to white matter differentiation is well preserved. No extra-axial fluid collections are identified. No hydrocephalus. Proportional prominence of the ventricles and sulcal spaces is consistent with mild volume loss. Patchy periventricular and deep white matter hypoattenuation is consistent with mild small vessel ischemic changes. Cavum septum pellucidum et vergae CT/CT head/brain wo IV con IMPRESSION: No acute intracranial abnormality including hemorrhage, mass effect, hydrocephalus, or acute territorial edematous infarction.
--- OUTSIDE RECORDS SUMMARY | 2023-04-09 20:18 | XMS_ITS | Continuity of Care Document ---
Author Name Unknown Organization [facility] Address [address] [place] [address]- Care Team Providers Care Guide Foreign Tour Name Role Phone Lucille KEY, Ga Pollard Primary Care Physician [phone] Encounter [facility] Date(s): 05/07/21 - 06/06/21 [facility] [address] [place] [id number]- Attending Physician: Chloe Olvera Admitting Physician: AdmChloe ag Referring Physician: Admtr, Ar8 Allergies, Adverse Reactions, Alerts Substance Reaction Severity Status aspirin Active penicillins hives Active traMADol racing thoughts Active Immunizations Given and Recorded Vaccine Date Status Refusal Reason Influenza Virus Vaccine (oldterm) 06/24/19 Recorde d influenza virus vaccine, inactivated 1 09/21/18 Gi nuzhat influenza virus vaccine, inactivated 2 06/10/17 Gi nuzhat influenza virus vaccine, inactivated 10/23/16 Give n tetanus/diphtheria/pertussis, acel(Tdap) 01/12/18 Given hepatitis B adult vaccine 3 09/09/17 Given hepatitis B adult vaccine 04/09/17 Given hepatitis B adult vaccine 03/10/17 Given Hepatitis A Adult Vaccine 4 09/09/17 Given Hepatitis A Adult Vaccine 03/10/17 Given pneumococcal 23-valent vaccine 02/18/17 Given Not Given Vaccine Date Status Refusal Reason pneumococcal 23-valent vaccine 10/23/16 Not Given Patient Refuses 1Result Comment: [09/21/2018] [facility] [id number] 2Result Comment: [06/10/2017] [facility]: [id number] 3Result Comment: [09/09/2017] [facility]# [id number] 4Result Comment: [09/09/2017] [facility]# [id number] Medications ALPRAZolam 0.5 mg oral tablet 0.5 mg, 1, tablet, By Mouth, 3 times a day, PRN, Refills 0, Maintenance, for anxiety, 08/05/17 11:11:03 Start Date: 08/05/17 Status: Ordered amLODIPine 10 mg oral tablet 10 mg, 1, tablet, By Mouth, Daily, # 90 tablet, Refills 3, Tot. Refills 3, Maintenance, 02/06/21 15:19:00 EDT, Route to Pharmacy Electronically, [facility], 185.42, cm, 10/15/20 8:52:00 EST, Height Start Date: 02/06/21 Status: Ordered Compression Stockings See Instructions, # 1 each, Maintenance, surgical, thigh high length 20-30 mm Hg, 04/20/20 9:37:00 EDT, Supply Start Date: 04/20/20 Status: Ordered D3-50 oral capsule 1 capsule, By Mouth, Every week, # 12 capsule, 0 Refills, Maintenance, 03/19/21 12:03:00 EDT, [facility], 185.42, cm, 03/08/21 10:27:00 EDT, Height Start Date: 03/19/21 Status: Ordered lisinopril 20 mg oral tablet 20 mg, 1, tablet, By Mouth, Daily, # 90 tablet, Refills 3, Tot. Refills 3, Maintenance, 02/06/21 15:19:00 EDT, Route to Pharmacy Electronically, [email or web address], 185.42, cm, 10/15/20 8:52:00 EST, Height Start Date: 02/06/21 Status: Ordered metoprolol 50 mg oral tablet, extended release 50 mg, 1, tablet, By Mouth, Daily, # 90 tablet, Refills 3, Tot. Refills 3, Maintenance, 02/06/21 15:18:00 EDT, Route to Pharmacy Electronically, [email or web address], replaces IR metoprolol, 185.42, cm, 10/15/20 8:52:00 EST, Height Start Date: 02/06/21 Status: Ordered pantoprazole 40 mg oral delayed release tablet See Instructions, TAKE ONE TABLET BY MOUTH EVERY DAY NEEDED FOR DYSPEPSIA, # 90 tablet, 0 Refills, 185.42, cm, 05/07/21 10:02:00 EDT, Height Start Date: 05/30/21 Status: Ordered PEG-3350 with Electrolytes ([id number]-[id number]) oral powder for reconstitution See Instructions, Take as directed, # 1 each, 0 Refills, Maintenance, 05/09/21 10:39:00 EDT, [facility], Partial fill upon patient request if the prescription is for a schedule II opioid drug., Take as directed, 185.42, cm, 05/07/21 10:0... Start Date: 05/09/21 Status: Ordered ProAir HFA 90 mcg/inh inhalation aerosol with adapter 2, puffs, Inhalation, Every 6 hours, PRN, # 1 each, Refills 5, Tot. Refills 5, Maintenance, 03/01/21 8:55:00 EDT, Route to Pharmacy Electronically, [id number], [facility], 185.42, cm, 10/15/20 8:52:00 EST, Height Start Date: 03/01/21 Status: Ordered Proventil HFA 90 mcg/inh inhalation aerosol with adapter 2, puffs, Inhalation, 4 times a day, PRN, # 25 Gm, Refills 2, Tot. Refills 2, Maintenance, :54:00 EST, Aerosol, Route to Pharmacy Electronically, [id number], [facility], 185.42, cm, 05/25/20 6:57:00 ED... Start Date: 08/02/20 Status: Ordered Problem List Condition Effective Dates Status Health Status Inform ant Asthma(Confirmed) Active Benign hypertension(Confirmed) Active Caregiver stress(Confirmed) Active Deep vein thrombosis (DVT)(Confirmed) Active Dysphagia(Confirmed) Active Elevated transaminase level(Confirmed) Active Left rib fracture, sixth(Confirmed) Active GERD (gastroesophageal reflu x disease)(Confirmed) Active Status post dilation of esop hageal narrowing(Confirmed) 1 Active Elevated cholesterol(Confirmed) Active Low back pain(Confirmed) Active Mild persistent asthma(Confirmed) Active Anxious depression(Confirmed) Active Lower extremity pain(Confirmed) Active Anoxic-Ischemic Br ain Injury(Confirmed) Active Hepatic steatosis(Confirmed) Active Odynophagia(Confirmed) Active Tobacco abuse(Confirmed) Active Vitamin D deficiency(Confirmed) Active 1While living in [place] Social History Social History Type Response Smoking Status Current every day haily rocha; Type: Cigarettes; Tobacco use times per day: 1 PPD now down to 1 pack/week; Number of years: 36; Total pack years: 36; Started at age: 15; entered on: 03/02/17 Sex
--- OUTSIDE RECORDS SUMMARY | 2023-04-09 20:18 | XMS_ITS | Continuity of Care Document ---
Author Name Unknown Organization [facility] Andrzej lt Address [address] [place] [address]- Care Team Providers Care Vending Supervisor Name Role Phone Lucille KEY, Ga Pollard Primary Care Physician [phone] [facility]counter [facility] Date[facility]s): 03/14/20 - 04/13/20 [facility] Adult [address] [place] [address]- [facility] Attending Physician: AdmChloe ag Admitting Physician: AdmtrChloe Referring Physician: AdmtrChloe Allergies, Adverse Reactions, Alerts Substance Reaction Severity [...] Not Given Patient Refuses 1Result Comment: [09/21/2018] [facility] [id number] 2Result Comment: [06/10/2017] [facility]: [id number] 3Result Comment: [09/09/2017] [facility]# [id number] 4Result Comment: [09/09/2017] [facility]# [id number] Medications ALPRAZolam 0.5 mg oral tablet 0.5 mg, 1, tablet, By Mouth, 3 times a day, PRN, Refills 0, Maintenance, for anxiety, 08/05/17 11:11:03 Start Date: 08/05/17 Status: Ordered amLODIPine 10 mg oral tablet 10 mg, 1, tablet, By Mouth, Daily, # 90 tablet, Refills 3, Tot. Refills 3, Maintenance, 06/28/19 8:28:20 EDT, Route to Pharmacy Electronically, [id number], [facility] Start Date: 06/28/19 Status: Ordered Atrovent HFA 17 mcg/inh inhalation aerosol 2 puffs, Inhalation, 4 times a day, # 12.9 Gm, 1 Refills, Maintenance, 03/12/20 9:36:00 EDT, Aerosol, [facility], 185.42, cm, 03/12/20 8:37:00 EDT, Height Start Date: 03/12/20 Status: Ordered Flovent HFA 110 mcg/inh inhalation aerosol 2 puffs, Inhalation, 2 times a day, # 12 Gm, 5 Refills, Maintenance, 12/08/19 15:46:00 EDT, Aerosol, [facility], 185.42, cm, 10/21/19 8:47:00 EST, Height Start Date: 12/08/19 Status: Ordered lisinopril 20 mg oral tablet 20 mg, 1, tablet, By Mouth, Daily, # 90 tablet, Refills 3, Tot. Refills 3, Maintenance, 06/28/19 8:28:42 EDT, Route to Pharmacy Electronically, [id number], [facility] Start Date: 06/28/19 Status: Ordered metoprolol 50 mg oral tablet, extended release 50 mg, 1, tablet, By Mouth, Daily, # 90 tablet, Refills 3, Tot. Refills 3, Maintenance, 06/28/19 8:29:10 EDT, Route to Pharmacy Electronically, [id number], [facility], replaces IR metoprolol Start Date: 06/28/19 Status: Ordered pantoprazole 40 mg oral delayed release tablet 1 tablet = 40 mg, By Mouth, Daily, PRN Dyspepsia, # 90 tablet, 3 Refills, Maintenance, 03/15/20 15:42:00 EDT, 185.42, cm, 03/12/20 8:37:00 EDT, Height Start Date: 03/15/20 Status: Ordered ProAir HFA 90 mcg/inh inhalation aerosol with adapter 2, puffs, Inhalation, Every 6 hours, PRN, # 1 each, Refills 5, Tot. Refills 5, Maintenance, 03/12/20 9:30:00 EDT, Route to Pharmacy Electronically, [id number], [facility], 185.42, cm, 03/12/20 8:37:00 EDT, Height Start Date: 03/12/20 Status: Ordered Problem List Condition Effective Dates Status Health Status Inform ant Asthma(Confirmed) Active Benign hypertension(Confirmed) Active Caregiver stress(Confirmed) Active Dysphagia(Confirmed) Active Elevated transaminase level(Confirmed) Active GERD (gastroesophageal reflu x disease)(Confirmed) Active Status post dilation of esop hageal narrowing(Confirmed) 1 Active Elevated cholesterol(Confirmed) Active Low back pain(Confirmed) Active Mild persistent asthma(Confirmed) Active Anxious depression(Confirmed) Active Lower extremity pain(Confirmed) Active Anoxic-Ischemic Br ain Injury(Confirmed) Active Hepatic steatosis(Confirmed) Active Odynophagia(Confirmed) Active Tobacco abuse(Confirmed) Active Vitamin D deficiency(Confirmed) Active 1While living in [place] Social History Social History Type Response Smoking Status Current every day sm oker; Type: Cigarettes; Tobacco use times per day: 1 PPD now down to 1 pack/week; Number of years: 36; Total pack years: 36; Started at age: 15; entered on: 03/02/17 Sex
--- OUTSIDE RECORDS SUMMARY | 2023-04-09 20:18 | XMS_ITS | Continuity of Care Document ---
Author Name Unknown Organization [facility] ter Address [address] [place] [address]- Care Team Providers Care Pipe Cleaning Machine Operator Name Role Phone Lucille KEY, Ga Pollard Primary Care Physician [phone] [facility]counter [facility] Date(s): 12/31/20 - 01/01/[address] [address]- Encounter Diagnosis Rib fracture(Final) - 01/01/21 Discharge Disposition: A-D/C Home Attending Physician: Cuong Petersen DO Admitting Physician: Cuong Petersen DO Referring Physician: Not on Staff, Referring MD Allergies, Adverse Reactions, Alerts Substance Reaction Severity [...] Not Given Patient Refuses 1Result Comment: [09/21/2018] [facility] [id number] 2Result Comment: [06/10/2017] [facility]: [id number] 3Result Comment: [09/09/2017] [facility]# [id number] 4Result Comment: [09/09/2017] [facility]# [id number] Medications acetaminophen-oxyCODONE 325 mg-5 mg oral tablet 1, tablet, By Mouth, Every 4 hours, PRN, # 12 tablet, Refills 0, Tot. Refills 0, Acute, for pain, 01/04/21 11:54:00 EDT, 12/28/20 11:54:00 EDT, [id number], 185.42, cm, 10/15/20 8:52:00 EST, Height Start Date: 12/28/20 Stop Date: 01/04/21 Status: Ordered acetaminophen-oxyCODONE 325 mg-5 mg oral tablet 1, tablet, By Mouth, Every 4 hours, PRN, # 12 tablet, Refills 0, Tot. Refills 0, Acute, for pain, 01/04/21 11:59:00 EDT, 01/04/21 11:54:00 EDT, Route to Pharmacy Electronically, [facility] Tablet, 185.42, cm, 10/15/20 8:52:00 EST, Height Start Date: 01/04/21 Stop Date: 01/04/21 Status: Ordered ALPRAZolam 0.5 mg oral tablet 0.5 mg, 1, tablet, By Mouth, 3 times a day, PRN, Refills 0, Maintenance, for anxiety, 08/05/17 11:11:03 Start Date: 08/05/17 Status: Ordered amLODIPine 10 mg oral tablet 10 mg, 1, tablet, By Mouth, Daily, # 90 tablet, Refills 0, Tot. Refills 0, Maintenance, 11/01/20 10:02:00 EST, [facility] 185.42, cm, 10/15/20 8:52:00 EST, Height Start Date: 11/01/20 Status: Ordered cholecalciferol 50,000 intl units oral capsule 1 capsule = 50,000 International_Units, By Mouth, Every week, # 12 capsule, 0 Refills, Maintenance,04/17/20 16:24:00 EDT, Capsule, [facility], 185.42, cm, 03/12/20 8:37:00 EDT, Height Start Date: 04/17/20 Status: Ordered Compression Stockings See Instructions, # 1 each, Maintenance, surgical, thigh high length 20-30 mm Hg, 04/20/20 9:37:00 EDT, Supply Start Date: 04/20/20 Status: Ordered lisinopril 20 mg oral tablet 20 mg, 1, tablet, By Mouth, Daily, # 90 tablet, Refills 0, Tot. Refills 0, Maintenance, 11/01/20 10:02:00 EST, Route to Pharmacy Electronically, [facility]acy #6429, 185.42, cm, 10/15/20 8:52:00 EST, Height Start Date: 11/01/20 Status: Ordered metoprolol 50 mg oral tablet, extended release 50 mg, 1, tablet, By Mouth, Daily, # 90 tablet, Refills 0, Tot. Refills 0, Maintenance, 11/01/20 10:02:00 EST, [facility] replaces IR metoprolol, 185.42, cm, 10/15/20 8:52:00 EST, Height Start Date: 11/01/20 Status: Ordered oxyCODONE 5 mg oral tablet 5 mg, 1, tablet, By Mouth, Every 6 hours, PRN, for 3 days, # 12 tablet, Refills 0, Tot. Refills 0, Acute 01/04/21 4:46:00 EDT, as needed for pain, 01/01/21 4:46:00 EDT, Route to Pharmacy Electronically, [facility], Partial fill upon mone... Start Date: 01/01/21 Stop Date: 01/04/21 Status: Ordered OxyCODONE IR Tablet 5 mg, Tablet, By Mouth, Once, STAT, 01/01/21 1:01:00 EDT, Stop date 01/01/21 1:01:00 EDT Start Date: 01/01/21 Stop Date: 01/01/21 Status: Completed pantoprazole 40 mg oral delayed release tablet 1 tablet = 40 mg, By Mouth, Daily, PRN Dyspepsia, # 90 tablet, 0 Refills, Maintenance, 11/01/20 10:03:00 EST, 185.42, cm, 10/15/20 8:52:00 EST, Height Start Date: 11/01/20 Status: Ordered ProAir HFA 90 mcg/inh inhalation aerosol with adapter 2, puffs, Inhalation, Every 6 hours, PRN, # 1 each, Refills 5, Tot. Refills 5, Maintenance, 03/12/20 9:30:00 EDT, Route to Pharmacy Electronically, [id number], [facility], 185.42, cm, 03/12/20 8:37:00 EDT, Height Start Date: 03/12/20 Status: Ordered Proventil HFA 90 mcg/inh inhalation aerosol with adapter 2, puffs, Inhalation, 4 times a day, PRN, # 25 Gm, Refills 2, Tot. Refills 2, Maintenance, 204:54:00 EST, Aerosol, Route to Pharmacy Electronically, [id number], [facility], 185.42, cm, 05/25/20 6:57:00 ED... Start Date: 08/02/20 Status: Ordered Trelegy Ellipta inhalation powder 1 puffs, Inhalation, Daily, at the same time every day, # 1 each, 2 Refills, Maintenance, 05/25/20 7:08:00 EDT, Powder, [facility], 185.42, cm, 05/25/20 6:57:00 EDT, Height Start Date: 05/25/20 Status: Ordered Problem List Condition Effective Dates [...] Vitamin D deficiency(Confirmed) Active 1While living in [place] Results Radiology Reports * Exam Date Time Procedure Performing Provider Status 12/31/20 8:45 PM Chest 2 Views Frontal and Lat Donald Rosario onica; Auth (Verified) Notes: (Chest 2 Views Frontal and Lat) Reason For Exam: Shortness of Breath RESULT: Chest 2 Views Frontal and Lat Chest 2 Views Frontal and Lat Hx of Present Illness: Rib pain; Reason: Shortness of Breath; Clinical Question(s): Pneumonia COMPARISON: 10/21/2019 FINDINGS: LINES AND TUBES: None. LUNGS AND PLEURA: Clear lungs. Normal pulmonary vascularity. No pleural effusion. No pneumothorax. HEART, MEDIASTINUM AND JESSI: Heart is normal in size. Normal upper mediastinal and hilar contour. BONES AND SOFT TISSUES: No acute abnormality. Prior right rib fixation. IMPRESSION: No acute abnormality. WSN: [id number] Ordering Physician: Jeffrey Vargas Dictated By: Jovan Duran DO Dictated Date/Time: 12/31/20 9:21 pm Reviewed By: Jovan Duran DO Signed By: Jovan Duran DO Signed Date/Time: 12/31/20 9:21 pm Transcribed By: MANDA Transcribed Date/Time: 12/31/20 9:20 pm Vital Signs Most recent to oldest [Reference Range]: 1 2 3 Oxygen Saturation [94-100 %] 95 % (01/01/21 3:59 AM) 97 % (01/01/21 12:50 AM) 97 % (12/31/20 11:31 PM) Pulse Rate [55-90 bpm] 78 bpm (01/01/21 3:59 AM) 62 bpm (01/01/21 12:50 AM) 56 bpm (12/31/20 11:31 PM) Blood Pressure [90-138/55-84 mm Hg] 120/79mm Hg (01/01/21 3:59 AM) 136/92mm Hg (01/01/21 12:50 AM) 133/87mm Hg (12/31/20 11:31 PM) Respiratory Rate [16-30 br/min] 17 br/min (01/01/21 3:59 AM) 17 br/min (01/01/21 2:24 AM) 16 br/min (01/01/21 12:50 AM) Temperature [96.8-100.4 DegF] 97.3 DegF (01/01/21 3:59 AM) 97.9 DegF (01/01/21 12:50 AM) 98.3 DegF (12/31/20 11:31 PM) Mode of Delivery (Oxygen) Room air (01/01/21 3:59 AM) Room air (01/01/21 12:50 AM) Room air (12/31/20 11:31 PM) Blood pressure sites Arm, right (01/01/21 3:59 AM) Arm, right (01/01/21 12:50 AM) Arm, right (12/31/20 11:31 PM) Temperature Route Oral (01/01/21 3:59 AM) Oral (01/01/21 12:50 AM) Oral (12/31/20 11:31 PM) Social History Social History Type Response Smoking Status Current every day haily rocha; Type: Cigarettes; Tobacco use times per day: 1 PPD now down to 1 pack/week; Number of years: 36; Total pack years: 36; Started at age: 15; entered on: 03/02/17 Sex
--- OUTSIDE RECORDS SUMMARY | 2023-04-09 20:18 | XMS_ITS | Continuity of Care Document ---
Author Name Unknown Organization [facility] Andrzej lt Address [address] [place] [address]- Care Team Providers Care Motor Vehicle Salesperson Name Role Phone Lucille KEY, Ga Pollard Primary Care Physician Encounter [facility] Date(s): 05/24/20 - 06/23/20 [facility] Adult [address] [place] [address]- [facility] Allergies, Adverse Reactions, Alerts Substance Reaction Severity [...] Not Given Patient Refuses 1Result Comment: [09/21/2018] [facility] [id number] 2Result Comment: [06/10/2017] [facility]: [id number] 3Result Comment: [09/09/2017] [facility]# [id number] 4Result Comment: [09/09/2017] [facility]# [id number] Medications ALPRAZolam 0.5 mg oral tablet 0.5 mg, 1, tablet, By Mouth, 3 times a day, PRN, Refills 0, Maintenance, for anxiety, 08/05/17 11:11:03 Start Date: 08/05/17 Status: Ordered amLODIPine 10 mg oral tablet 10 mg, 1, tablet, By Mouth, Daily, # 90 tablet, Refills 3, Tot. Refills 3, Maintenance, 06/28/19 8:28:20 EDT, Route to Pharmacy Electronically, [id number], [facility] Start Date: 06/28/19 Status: Ordered apixaban 5 mg oral tablet 1 tablet = 5 mg, By Mouth, 2 times a day, # 60 tablet, 1 Refills, Maintenance, 05/15/20 13:00:00 EDT, Tablet, [facility], 185.42, cm, 04/20/20 9:09:00 EDT, Height Start Date: 05/15/20 Status: Ordered cholecalciferol 50,000 intl units oral capsule 1 capsule = 50,000 International_Units, By Mouth, Every week, # 12 capsule, 0 Refills, Maintenance,04/17/20 16:24:00 EDT, Capsule, [facility], 185.42, cm, 03/12/20 8:37:00 EDT, [...] 06/28/19 8:28:42 EDT, Route to Pharmacy Electronically, [id number], [facility] Start Date: 06/28/19 Status: Ordered metoprolol 50 mg oral tablet, extended release 50 mg, 1, tablet, By Mouth, Daily, # 90 tablet, Refills 3, Tot. Refills 3, Maintenance, 06/28/19 8:29:10 EDT, Route to Pharmacy Electronically, [id number], [facility], replaces IR metoprolol Start Date: [...] 03/12/20 9:30:00 EDT, Route to Pharmacy Electronically, [id number], [facility], 185.42, cm, 03/12/20 8:37:00 EDT, Height Start Date: 03/12/20 Status: Ordered Trelegy Ellipta inhalation powder 1 puffs, Inhalation, Daily, at the same time every day, # 1 each, 2 Refills, Maintenance, 05/25/20 7:08:00 EDT, Powder, [facility], 185.42, cm, 05/25/20 6:57:00 EDT, [...] Vitamin D deficiency(Confirmed) Active 1While living in [place] Social History Social History Type Response Smoking Status Current every day sm oker; Type: Cigarettes; Tobacco use times per day: 1 PPD now down to 1 pack/week; Number of years: 36; Total pack years: 36; Started at age: 15; entered on: 03/02/17 Sex
--- OUTSIDE RECORDS SUMMARY | 2023-04-09 20:18 | XMS_ITS | Continuity of Care Document ---
Author Name Unknown Organization [facility] ter Address [address] [place] [address]- Care Team Providers Care Hardwood Floor Installer Name Role Phone Lucille KEY, Ga Pollard Primary Care Physician [phone] [facility] Date(s): 04/18/20 - 04/18/[address] [address]- [facility] Discharge Disposition: A-D/C Home Attending Physician: Weston Gamble MD Admitting Physician: Weston Gamble MD Referring Physician: Not on Staff, Referring MD [...] 1Result Comment: [09/21/2018] [facility] [id number] 2Result Comment: [06/10/2017] [facility]: [id number] 3Result Comment: [09/09/2017] [facility]# [id number] 4Result Comment: [09/09/2017] [facility]# [id number] Medications ALPRAZolam 0.5 mg oral tablet 0.5 mg, 1, tablet, By Mouth, 3 times a day, PRN, Refills 0, Maintenance, for anxiety, 08/05/17 11:11:03 Start Date: 08/05/17 Status: Ordered amLODIPine 10 mg oral tablet 10 mg, 1, tablet, By Mouth, Daily, # 90 tablet, Refills 3, Tot. Refills 3, Maintenance, 06/28/19 8:28:20 EDT, Route to Pharmacy Electronically, [id number], [facility] Start Date: 06/28/19 Status: Ordered apixaban Starter Pack 5 mg oral tablet 2 tablet = 10 mg, By Mouth, 2 times a day, followed by 1 tablet by mouth twice daily for 23 days, #74 tablet, 0 Refills, Maintenance, 04/18/20 13:09:00 EDT, [facility], 185.42, cm,03/12/20 8:37:00 EDT, Height Start Date: 04/18/20 Stop Date: 04/25/20 Status: Ordered Atrovent HFA 17 mcg/inh inhalation aerosol 2 puffs, Inhalation, 4 times a day, # 12.9 Gm, 1 Refills, Maintenance, 03/12/20 9:36:00 EDT, Aerosol, [facility], 185.42, cm, 03/12/20 8:37:00 EDT, Height Start Date: 03/12/20 Status: Ordered cholecalciferol 50,000 intl units oral capsule 1 capsule = 50,000 International_Units, By Mouth, Every week, # 12 capsule, 0 Refills, Maintenance,04/17/20 16:24:00 EDT, Capsule, [facility], 185.42, cm, 03/12/20 8:37:00 EDT, Height Start Date: 04/17/20 Status: Ordered Flovent HFA 110 mcg/inh inhalation [...] 06/28/19 8:28:42 EDT, Route to Pharmacy Electronically, [id number], [facility] Start Date: 06/28/19 Status: Ordered metoprolol 50 mg oral tablet, extended release 50 mg, 1, tablet, By Mouth, Daily, # 90 tablet, Refills 3, Tot. Refills 3, Maintenance, 06/28/19 8:29:10 EDT, Route to Pharmacy Electronically, [id number], [facility], replaces IR metoprolol Start Date: [...] 03/12/20 9:30:00 EDT, Route to Pharmacy Electronically, [id number], [email or web address], 185.42, cm, 03/12/20 8:37:00 EDT, [...] Vitamin D deficiency(Confirmed) Active 1While living in [place] Vital Signs Most recent to oldest [Reference Range]: 1 2 3 Oxygen Saturation [94-100 %] 96 % (04/18/20 1:35 PM) 97 % (04/18/20 1:17 PM) 96 % (04/18/20 8:24 AM) Pulse Rate [55-90 bpm] 79 bpm (04/18/20 1:35 PM) 84 bpm (04/18/20 1:17 PM) 94 bpm *H* (04/18/20 8:24 AM) Blood Pressure [90-138/55-84 mm Hg] 144/95mm Hg *H* (04/18/20 1:35 PM) 118/59mm Hg (04/18/20 1:17 PM) 127/91mm Hg (04/18/20 8:24 AM) Respiratory Rate [16-30 br/min] 16 br/min (04/18/20 1:35 PM) 18 br/min (04/18/20 1:17 PM) 18 br/min (04/18/20 8:24 AM) Temperature [96.8-100.4 DegF] 97.9 DegF (04/18/20 8:24 AM) Mode of Delivery (Oxygen) Room air (04/18/20 1:35 PM) Room air (04/18/20 1:17 PM) Room air (04/18/20 8:24 AM) Blood pressure sites Arm, left (04/18/20 1:35 PM) Arm, left (04/18/20 1:17 PM) Arm, right (04/18/20 8:24 AM) Temperature Route Oral (04/18/20 8:24 AM) Social History Social History Type Response Smoking Status Current every day haily rocha; Type: Cigarettes; Tobacco use times per day: 1 PPD now down to 1 pack/week; Number of years: 36; Total pack years: 36; Started at age: 15; entered on: 03/02/17 Sex
--- OUTSIDE RECORDS SUMMARY | 2023-04-09 20:18 | XMS_ITS | Continuity of Care Document ---
Author Name Unknown Organization [facility] Andrzej lt Address [address] [place] [address]- Care Team Providers Care Registration Rep Name Role Phone Lucille KEY, Ga Pollard Primary Care Physician [facility] Date[facility]s): 09[facility]09[facility]21 - 10/09/21 [facility] Adult [address] [place] [address]- Allergies, Adverse Reactions, Alerts Substance Reaction Severity [...] Not Given Patient Refuses 1Result Comment: [09/21/2018] [facility] [id number] 2Result Comment: [06/10/2017] [facility]: [id number] 3Result Comment: [09/09/2017] [facility]# [id number] 4Result Comment: [09/09/2017] [facility]# [id number] Medications ALPRAZolam 0.5 mg oral tablet 0.5 mg, 1, tablet, By Mouth, 3 times a day, PRN, Refills 0, Maintenance, for anxiety, 08/05/17 11:11:03 Start Date: 08/05/17 Status: Ordered amLODIPine 10 mg oral tablet 10 mg, 1, tablet, By Mouth, Daily, # 90 tablet, Refills 3, Tot. Refills 3, Maintenance, 02/06/21 15:19:00 EDT, Route to Pharmacy Electronically, [facility], 185.42, cm, 10/15/20 8:52:00 EST, Height Start Date: 02/06/21 Status: Ordered Compression Stockings See Instructions, # 1 each, Maintenance, surgical, thigh high length 20-30 mm Hg, 04/20/20 9:37:00 EDT, Supply Start Date: 04/20/20 Status: Ordered D3-50 oral capsule 1 capsule, By Mouth, Every week, # 12 capsule, 0 Refills, Maintenance, 03/19/21 12:03:00 EDT, [facility], 185.42, cm, 03/08/21 10:27:00 EDT, Height Start Date: 03/19/21 Status: Ordered lisinopril 20 mg oral tablet 20 mg, 1, tablet, By Mouth, Daily, # 90 tablet, Refills 3, Tot. Refills 3, Maintenance, 02/06/21 15:19:00 EDT, Route to Pharmacy Electronically, [facility], 185.42, cm, 10/15/20 8:52:00 EST, Height Start Date: 02/06/21 Status: Ordered metoprolol 50 mg oral tablet, extended release 50 mg, 1, tablet, By Mouth, Daily, # 90 tablet, Refills 3, Tot. Refills 3, Maintenance, 02/06/21 15:18:00 EDT, Route to Pharmacy Electronically, [facility], replaces IR metoprolol, 185.42, cm, 10/15/20 8:52:00 EST, Height Start Date: 02/06/21 Status: Ordered pantoprazole 40 mg oral delayed release tablet See Instructions, TAKE ONE TABLET BY MOUTH EVERY DAY NEEDED FOR DYSPEPSIA, # 90 tablet, 0 Refills, 09/09/21 15:24:00 EST, 185.42, cm, 05/07/21 10:02:00 EDT, Height Start Date: 09/09/21 Status: Ordered PEG-3350 with Electrolytes (Eqv-GoLYTELY) oral [...] 03/01/21 8:55:00 EDT, Route to Pharmacy Electronically, [id number], [facility], 185.42, cm, 10/15/20 8:52:00 EST, Height Start Date: 03/01/21 Status: Ordered Proventil HFA 90 mcg/inh inhalation aerosol with adapter 2, puffs, Inhalation, 4 times a day, PRN, # 25 Gm, Refills 2, Tot. Refills 2, Maintenance, 204:54:00 EST, Aerosol, Route to Pharmacy Electronically, [id number], [facility], 185.42, cm, [...] Vitamin D deficiency(Confirmed) Active 1While living in [place] Social History Social History Type Response Smoking Status Current every day haily rocha; Type: Cigarettes; Tobacco use times per day: 1 PPD now down to 1 pack/week; Number of years: 36; Total pack years: 36; Started at age: 15; entered on: 03/02/17 Sex
--- OUTSIDE RECORDS SUMMARY | 2023-04-09 20:18 | XMS_ITS | Continuity of Care Document ---
Author Name Unknown Organization [facility] Andrzej lt Address [address] [place] [address]- Care Team Providers Care Embedded Hardware Engineer Name Role Phone Ga Adkins MD Primary Care Physician Encounter [facility] [place] Date(s): 07/28/22 - 08/29/22 [facility] Adult [address] [place] [address]- Attending Physician: Ga Adkins MD Allergies, Adverse Reactions, Alerts Substance Reaction Severity Status aspirin Active penicillins hives Active traMADol racing thoughts Active Immunizations Given and Recorded Vaccine Date Status Refusal Reason influenza virus vaccine, inactivated 08/08/22 Give n influenza virus vaccine, inactivated 1 09/21/18 Gi nuzhat influenza virus vaccine, inactivated 2 06/10/17 Gi nuzhat influenza virus vaccine, inactivated 10/23/16 Give n SARS-CoV-2 (COVID-19) mRNA-1273 vaccine 02/04/21 R ecorded SARS-CoV-2 (COVID-19) mRNA-1273 vaccine 01/07/21 R ecorded Influenza Virus Vaccine (oldterm) 06/24/19 Recorde d tetanus/diphtheria/pertussis, acel(Tdap) 01/12/18 Given hepatitis B adult vaccine 3 09/09/17 Given hepatitis B adult vaccine 04/09/17 Given hepatitis B adult vaccine 03/10/17 Given Hepatitis A Adult Vaccine 4 09/09/17 Given Hepatitis A Adult Vaccine 03/10/17 Given pneumococcal 23-valent vaccine 02/18/17 Given Not Given Vaccine Date Status Refusal Reason pneumococcal 23-valent vaccine 10/23/16 Not Given Patient Refuses 1Result Comment: [09/21/2018] [facility] [id number] 2Result Comment: [06/10/2017] [facility]: [id number] 3Result Comment: [09/09/2017] [facility]# [id number] 4Result Comment: [09/09/2017] [facility]# [id number] Medications amLODIPine 10 mg oral tablet 10 mg, 1, tablet, By Mouth, Daily, # 90 tablet, Refills 3, Tot. Refills 3, Maintenance, 08/08/22 10:26:00 EST, Route to Pharmacy Electronically, [facility], 186, cm, 08/08/22 9:54:00 EST, Height, 66, kg, 07/10/22 17:36:00 EDT, Dry Weight Start Date: 08/08/22 Stop Date: 08/29/22 Status: Ordered metoprolol 50 mg oral tablet, extended release 50 mg, 1, tablet, By Mouth, Daily, # 90 tablet, Refills 3, Tot. Refills 3, Maintenance, 08/08/22 10:26:00 EST, Route to Pharmacy Electronically, [facility], replaces IR metoprolol, 186, cm, 08/08/22 9:54:00 EST, Height, 66, kg, 07/10/22... Start Date: 08/08/22 Stop Date: 08/29/22 Status: Ordered pregabalin 25 mg oral capsule 1 capsule = 25 mg, By Mouth, Daily at bedtime, # 30 capsule, 2 Refills, Maintenance, 08/08/22 10:30:00 EST, [facility], Partial fill upon patient request if the prescription is for a schedule II opioid drug., 186, cm, 08/08/22 9:54:00 ES... Start Date: 08/08/22 Status: Ordered Problem List Condition Confirmation Course Effective Dates Status Health St atus Informant Asthma Confirmed Active Benign hypertension Confirmed Active Caregiver stress Confirmed Active Deep vein thrombosis (DVT) Confirmed Active Dysphagia Confirmed Active Elevated transaminase level Confirmed Active Left rib fracture, sixth Confirmed Active GERD (gastroesophageal reflux disease) Confirmed Active Status post dilation of esophageal narrowing 1 Confirmed Active Elevated cholesterol Confirmed Active Low back pain Confirmed Active Mild persistent asthma Confirmed Active Anxious depression Confirmed Active Lower extremity pain Confirmed Active Anoxic-Ischemic Brain Injury Confirmed Active Hepatic steatosis Confirmed Active Odynophagia Confirmed Active Tobacco abuse Confirmed Active Vitamin D deficiency Confirmed Active 1While living in [place] Social History Social History Type Response Smoking Status Current every day sm josefina; Type: Cigarettes; Tobacco use times per day: 1 PPD now down to 1 pack/week; Number of years: 36; Total pack years: 36; Started at age: 15; entered on: 03/02/17 Sex Patient Care team information Care Team Personnel Name: Zaida Hall RN Position: [facility] RN Member Role: Primary Care Nurse Name: Yuly Vásquez RN Position: [facility] RN Member Role: Primary Care Nurse Name: Alyson Cage NP Position: [facility] PCO Associate Professional Member Role: Primary Care Nurse Address: Address: [address] [place] [address]- Name: Gulshan Moulton RN Position: [facility] RN Member Role: Primary Care Nurse Name: Ga Adkins MD Position: [facility] Primary Care Physician Member Role: PCP Address: Address: [address] [place] [address]- Name: Farnaz Adames Position: [facility] PCO RN Member Role: Lifetime Consulting Physician Name: Sarah Jackson RN Position: [facility] RN Member Role: Primary Care Nurse Name: Rita Edmonds RN Position: [facility] AMB Nurse Member Role: Primary Care Nurse Name: Sumit Salas RN Position: [facility] RN Member Role: Primary Care Nurse Care Team Related Persons Name: TANIA COYNE Address: [place] [address] Name: ROMERO SOLER Address: home [address] [place] [id number]
--- OUTSIDE RECORDS SUMMARY | 2023-04-09 20:19 | XMS_ITS | Continuity of Care Document ---
Author Name Unknown Organization [facility] ter Address [address] [place] [address]- Care Team Providers Care Byproducts Operator Name Role Phone Ga Adkins MD Primary Care Physician Encounter [facility] [place] Date(s): 07/08/22 - 07/09/[address] [address]- Encounter Diagnosis Physical deconditioning(Final) - 07/09/22 Physical deconditioning(Final) - 07/09/22 Discharge Disposition: A-D/C Home Attending Physician: Carmina Camacho DO Admitting Physician: Carmina Camacho DO Referring Physician: Not on Staff, Referring MD Allergies, Adverse Reactions, Alerts Substance Reaction Severity Status aspirin Active penicillins hives Active traMADol racing thoughts Active Immunizations Given and Recorded Vaccine Date Status Refusal Reason SARS-CoV-2 (COVID-19) mRNA-1273 vaccine 02/04/21 R ecorded [...] Not Given Patient Refuses 1Result Comment: [09/21/2018] [facility] [id number] 2Result Comment: [06/10/2017] [facility]: [id number] 3Result Comment: [09/09/2017] [facility]# [id number] 4Result Comment: [09/09/2017] [facility]# [id number] Medications ALPRAZolam 0.5 mg oral tablet 0.5 mg, 1, tablet, By Mouth, 3 times a day, PRN, Refills 0, Maintenance, for anxiety, 08/05/17 11:11:03 Start Date: 08/05/17 Status: Ordered amLODIPine 10 mg oral tablet 10 mg, 1, tablet, By Mouth, Daily, APPOINTMENT NEEDED FOR ADDITIONAL REFILLS, # 90 tablet, Refills 0, Tot. Refills 0, Maintenance, 05/14/22 15:02:00 EDT, Route to Pharmacy Electronically, [facility], 185.42, cm, 05/07/21 10:02:00 EDT, Height Start Date: 05/14/22 Status: Ordered Compression Stockings See Instructions, # 1 each, Maintenance, surgical, thigh high length 20-30 mm Hg, 04/20/20 9:37:00 EDT, Supply Start Date: 04/20/20 Status: Ordered D3-50 oral capsule 1 capsule, By Mouth, Every week, # 12 capsule, 0 Refills, Maintenance, 03/19/21 12:03:00 EDT, [facility], 185.42, cm, 03/08/21 10:27:00 EDT, Height Start Date: 03/19/21 Status: Ordered lisinopril 20 mg oral tablet 20 mg, 1, tablet, By Mouth, Daily, APPOINTMENT NEEDED FOR ADDITIONAL REFILLS, # 90 tablet, Refills 0, Tot. Refills 0, Maintenance, 05/14/22 15:02:00 EDT, Route to Pharmacy Electronically, [facility], 185.42, cm, 05/07/21 10:02:00 EDT, Height Start Date: 05/14/22 Status: Ordered metoprolol 50 mg oral tablet, extended release 50 mg, 1, tablet, By Mouth, Daily, APPOINTMENT NEEDED FOR ADDITIONAL REFILLS, # 90 tablet, Refills 0, Tot. Refills 0, Maintenance, 05/14/22 15:02:00 EDT, Route to Pharmacy Electronically, [facility], replaces IR metoprolol, 185.42, cm, ... Start Date: 05/14/22 Status: Ordered pantoprazole 40 mg oral delayed release tablet See Instructions, TAKE ONE TABLET BY MOUTH EVERY DAY NEEDED FOR DYSPEPSIA, # 90 tablet, 3 Refills, 07/02/22 8:34:00 EDT, 185.42, cm, 05/07/21 10:02:00 EDT, Height Start Date: 07/02/22 Status: Ordered PEG-3350 with Electrolytes (Eqv-GoLYTELY) oral [...] 03/01/21 8:55:00 EDT, Route to Pharmacy Electronically, [id number], [facility], 185.42, cm, 10/15/20 8:52:00 EST, Height Start Date: 03/01/21 Status: Ordered Proventil HFA 90 mcg/inh inhalation aerosol with adapter 2, puffs, Inhalation, 4 times a day, PRN, # 25 Gm, Refills 2, Tot. Refills 2, Maintenance, 204:54:00 EST, Aerosol, Route to Pharmacy Electronically, [id number], [facility], 185.42, cm, 05/25/20 6:57:00 ED... Start Date: 08/02/20 Status: Ordered Problem List Condition Confirmation Course [...] D deficiency Confirmed Active 1While living in [place] Results Radiology Reports * Exam Date Time Procedure Performing Provider Status 07/09/22 3:11 AM Chest 2 Views Frontal and Lat Mila Ronquillo (Verified) Notes: (Chest 2 Views Frontal and Lat) Reason For Exam: Cough RESULT: Chest 2 Views Frontal and Lat Chest 2 Views Frontal and Lat CLINICAL INDICATION: Cough. COMPARISON: None available. FINDINGS: The cardiac silhouette is within normal limits. Hilar and mediastinal contours are normal. Patchy opacity is seen in the posterior right lower lobe compatible with pneumonia. The left lung is clear. There is no pleural effusion, pneumothorax, or evidence of CHF. Multiple old right-sided rib fractures are seen with residual deformity and fixation hardware. IMPRESSION: Right lower lobe pneumonia. Follow-up chest x-ray recommended after appropriate treatment to ensureresolution. Findings left in a message for the ED follow-up nurse at 8:02 AM on 07/09/2022. WSN: [id number] Ordering Physician: Sagar Gaston Dictated By: Deb Westbrook MD Dictated Date/Time: 07/09/22 8:03 am Reviewed By: Deb Westbrook MD Signed By: Deb Westbrook MD Signed Date/Time: 07/09/22 8:03 am Transcribed By: MANDA Transcribed Date/Time: 07/09/22 7:55 am Vital Signs Most recent to oldest [Reference Range]: 1 2 3 Height 185 cm (07/08/22 6:17 PM) 185 cm (07/08/22 6:04 PM) 185 cm (07/08/22 5:48 PM) Oxygen Saturation [94-100 %] 99 % (07/09/22 6:42 AM) 95 % (07/09/22 3:38 AM) 98 % (07/09/22 1:22 AM) Pulse Rate [55-90 bpm] 58 bpm (07/09/22 6:42 AM) 62 bpm (07/09/22 3:38 AM) 59 bpm (07/09/22 1:22 AM) Blood Pressure [90-138/55-84 mm Hg] 121/72mm Hg (07/09/22 6:42 AM) 100/63mm Hg (07/09/22 3:38 AM) 105/63mm Hg (07/09/22 1:22 AM) Respiratory Rate [16-30 br/min] 16 br/min (07/09/22 6:42 AM) 16 br/min (07/09/22 3:38 AM) 18 br/min (07/09/22 1:22 AM) Temperature [96.8-100.4 DegF] 98 DegF (07/09/22 1:22 AM) 97.4 DegF (07/09/22 12:35 AM) 98.0 DegF (07/08/22 11:27 PM) Mode of Delivery (Oxygen) Room air (07/09/22 6:42 AM) Room air (07/09/22 3:38 AM) Room air (07/09/22 1:22 AM) Blood pressure sites Arm, right (07/09/22 6:42 AM) Arm, right (07/09/22 3:38 AM) Arm, right (07/09/22 1:22 AM) Temperature Route Oral (07/09/22 1:22 AM) Oral (07/09/22 12:35 AM) Oral (07/08/22 11:27 PM) Dry Weight 66.5 kg (07/08/22 6:17 PM) 66.5 kg (07/08/22 6:04 PM) 66.5 kg (07/08/22 5:48 PM) Social History Social History Type Response Smoking Status Current every day haily rocha; Type: Cigarettes; Tobacco use times per day: 1 PPD now down to 1 pack/week; Number of years: 36; Total pack years: 36; Started at age: 15; entered on: 03/02/17 Sex Note * BHSPowerscribe , CIS S: TRANSCRIBE MirDeb rubin MD: VERIFY Event Display: Result: Authored Date: [id number] Chest 2 Views Frontal and Lat CLINICAL INDICATION: Cough. COMPARISON: None available. FINDINGS: The cardiac silhouette is within normal limits. Hilar and mediastinal contours are normal. Patchy opacity is seen in the posterior right lower lobe compatible with pneumonia. The left lung is clear. There is no pleural effusion, pneumothorax, or evidence of CHF. Multiple old right-sided rib fractures are seen with residual deformity and fixation hardware. IMPRESSION: Right lower lobe pneumonia. Follow-up chest x-ray recommended after appropriate treatment to ensureresolution. Findings left in a message for the ED follow-up nurse at 8:02 AM on 07/09/2022. WSN: [id number] Ordering Physician: Sagar Gaston Dictated By: Deb Westbrook MD Dictated Date/Time: 07/09/22 8:03 am Reviewed By: Deb Westbrook MD Signed By: Deb Westbrook MD Signed Date/Time: 07/09/22 8:03 am Transcribed By: MANDA Transcribed Date/Time: 07/09/22 7:55 am Patient Care team information Personnel Name: Ga Adkins MD Address: Address: [address] [place] [address]
--- OUTSIDE RECORDS SUMMARY | 2023-04-09 20:19 | XMS_ITS | Continuity of Care Document ---
Author Name Unknown Organization [facility] Ata Andrzej lt Address [address] [place] [address]- Care Team Providers Care Car Repairer Helper Name Role Phone Ga Adkins MD Primary Care Physician Encounter [facility] Date(s): 06/30/19 - 10/28/19 [facility] Adult [address] [place] [address]- [facility] Attending Physician: Ga Adkins MD Allergies, Adverse [...] Not Given Patient Refuses 1Result Comment: [09/21/2018] [facility] [id number] 2Result Comment: [06/10/2017] [facility]: [id number] 3Result Comment: [09/09/2017] [facility]# [id number] 4Result Comment: [09/09/2017] [facility]# [id number] Medications ALPRAZolam 0.5 mg oral tablet 0.5 mg, 1, tablet, By Mouth, 3 times a day, PRN, Refills 0, Maintenance, for anxiety, 08/05/17 11:11:03 Start Date: 08/05/17 Status: Ordered amLODIPine 10 mg oral tablet 10 mg, 1, tablet, By Mouth, Daily, # 90 tablet, Refills 3, Tot. Refills 3, Maintenance, 06/28/19 8:28:20 EDT, Route to Pharmacy Electronically, [id number], [facility] Start Date: 06/28/19 Status: Ordered atorvastatin 80 mg oral tablet 1 tablet = 80 mg, By Mouth, Daily, # 90 tablet, 3 Refills, Maintenance, 06/28/19 8:27:58 EDT, Tablet Start Date: 06/28/19 Status: Ordered cholecalciferol 2000 intl units oral capsule 1 capsule = 2,000 International_Units, By Mouth, Daily, # 30 capsule, 11 Refills, Maintenance, 08/19/18 10:18:02 EST, Capsule Start Date: 08/19/18 Status: Ordered Flovent HFA 110 mcg/inh inhalation aerosol 2 puffs, Inhalation, 2 times a day, rinse mouth after use, # 1 each, 6 Refills, Maintenance, 08/19/18 10:18:05 EST, Aerosol Start Date: 08/19/18 Status: Ordered lisinopril 20 mg oral tablet 20 mg, 1, tablet, By Mouth, Daily, # 90 tablet, Refills 3, Tot. Refills 3, Maintenance, 06/28/19 8:28:42 EDT, Route to Pharmacy Electronically, [id number], [facility] Start Date: 06/28/19 Status: Ordered metoprolol 50 mg oral tablet, extended release 50 mg, 1, tablet, By Mouth, Daily, # 90 tablet, Refills 3, Tot. Refills 3, Maintenance, 06/28/19 8:29:10 EDT, Route to Pharmacy Electronically, [id number], [facility], replaces IR metoprolol Start Date: 06/28/19 Status: Ordered ProAir HFA 90 mcg/inh inhalation aerosol with adapter 2, puffs, Inhalation, Every 6 hours, PRN, # 1 each, Refills 5, Tot. Refills 5, Maintenance, 02/23/19 13:14:12 EDT, Route to Pharmacy Electronically, [id number], [facility] Start Date: 02/23/19 Status: Ordered Protonix 40 mg oral delayed release tablet 1 tablet = 40 mg, By Mouth, Daily, # 30 tablet, 11 Refills, Maintenance, 01/19/19 14:47:42 EDT Start Date: 01/19/19 Status: Ordered Singulair 10 mg oral tablet 10 mg, 1, tablet, By Mouth, Daily in PM, # 90 tablet, Refills 3, Tot. Refills 3, Maintenance, 06/28/19 8:27:40 EDT, Route to Pharmacy Electronically, [id number], [facility] Start Date: 06/28/19 Status: Ordered Problem List Condition Effective Dates Status Health Status Inform ant Asthma(Confirmed) Active Benign hypertension(Confirmed) Active Caregiver stress(Confirmed) Active Dysphagia(Confirmed) Active GERD (gastroesophageal reflu x disease)(Confirmed) Active Status post dilation of esop hageal narrowing(Confirmed) 1 Active Elevated cholesterol(Confirmed) Active Low back pain(Confirmed) Active Mild persistent asthma(Confirmed) Active Anxious depression(Confirmed) Active Lower extremity pain(Confirmed) Active Anoxic-Ischemic Br ain Injury(Confirmed) Active Hepatic steatosis(Confirmed) Active Odynophagia(Confirmed) Active Tobacco abuse(Confirmed) Active Vitamin D deficiency(Confirmed) Active 1While living in [place] Social History Social History Type Response Smoking Status Current every day haily rocha; Type: Cigarettes; Tobacco use times per day: 1 PPD now down to 1 pack/week; Number of years: 36; Total pack years: 36; Started at age: 15; entered on: 03/02/17 Sex
--- OUTSIDE RECORDS SUMMARY | 2023-04-09 20:19 | XMS_ITS | Continuity of Care Document ---
Author Name Unknown Organization [facility] Ata Andrzej lt Address [address] [place] [address]- Care Team Providers Care Real Estate Legal Secretary Name Role Phone Ga Adkins MD Primary Care Physician [facility]counter [facility] Date(s): 03/14/20 - 03/21/20 [facility] Adult [address] [place] [address]- [facility] Attending Physician: Ga Adkins MD Allergies, Adverse [...] Not Given Patient Refuses 1Result Comment: [09/21/2018] [facility] [id number] 2Result Comment: [06/10/2017] [facility]: [id number] 3Result Comment: [09/09/2017] [facility]# [id number] 4Result Comment: [09/09/2017] [facility]# [id number] Medications ALPRAZolam 0.5 mg oral tablet 0.5 mg, 1, tablet, By Mouth, 3 times a day, PRN, Refills 0, Maintenance, for anxiety, 08/05/17 11:11:03 Start Date: 08/05/17 Status: Ordered amLODIPine 10 mg oral tablet 10 mg, 1, tablet, By Mouth, Daily, # 90 tablet, Refills 3, Tot. Refills 3, Maintenance, 06/28/19 8:28:20 EDT, Route to Pharmacy Electronically, [id number], [facility] Start Date: [...] 06/28/19 8:28:42 EDT, Route to Pharmacy Electronically, [id number], [facility] Start Date: 06/28/19 Status: Ordered metoprolol 50 mg oral tablet, extended release 50 mg, 1, tablet, By Mouth, Daily, # 90 tablet, Refills 3, Tot. Refills 3, Maintenance, 06/28/19 8:29:10 EDT, Route to Pharmacy Electronically, [id number], [facility], replaces IR [...] 03/12/20 9:30:00 EDT, Route to Pharmacy Electronically, [id number], [facility], 185.42, cm, 03/12/20 8:37:00 EDT, [...] Vitamin D deficiency(Confirmed) Active 1While living in [place] Social History Social History Type Response Smoking Status Current every day sm oker; Type: Cigarettes; Tobacco use times per day: 1 PPD now down to 1 pack/week; Number of years: 36; Total pack years: 36; Started at age: 15; entered on: 03/02/17 Sex
--- OUTSIDE RECORDS SUMMARY | 2023-04-09 20:19 | XMS_ITS | Continuity of Care Document ---
Author Name Unknown Organization [facility] Andrzej lt Address [address] [place] [address]- Care Team Providers Care Supervisor Microwave Name Role Phone Lucille KEY, Ga Pollard Primary Care Physician Encounter [facility] Date(s): 05/25/20 - 06/01/20 [facility] Adult [address] [place] [address]- [facility] Encounter Diagnosis Asthma(Discharge Diagnosis) - 05/25/20 Tobacco abuse(Discharge Diagnosis) - 05/25/20 Attending Physician: Not on Staff, Attending MD Allergies, Adverse Reactions, Alerts Substance Reaction [...] Not Given Patient Refuses 1Result Comment: [09/21/2018] [facility] [id number] 2Result Comment: [06/10/2017] [facility]: [id number] 3Result Comment: [09/09/2017] [facility]# [id number] 4Result Comment: [09/09/2017] [facility]# [id number] Medications ALPRAZolam 0.5 mg oral tablet 0.5 mg, 1, tablet, By Mouth, 3 times a day, PRN, Refills 0, Maintenance, for anxiety, 08/05/17 11:11:03 Start Date: 08/05/17 Status: Ordered amLODIPine 10 mg oral tablet 10 mg, 1, tablet, By Mouth, Daily, # 90 tablet, Refills 3, Tot. Refills 3, Maintenance, 06/28/19 8:28:20 EDT, Route to Pharmacy Electronically, [id number], [facility] Start Date: 06/28/19 Status: Ordered apixaban 5 mg oral tablet 1 tablet = 5 mg, By Mouth, 2 times a day, # 60 tablet, 1 Refills, Maintenance, 05/15/20 13:00:00 EDT, Tablet, [facility], 185.42, cm, 04/20/20 9:09:00 EDT, Height Start Date: 05/15/20 Status: Ordered cholecalciferol 50,000 intl units oral capsule 1 capsule = 50,000 International_Units, By Mouth, Every week, # 12 capsule, 0 Refills, Maintenance,04/17/20 16:24:00 EDT, Capsule, [facility], 185.42, cm, 03/12/20 8:37:00 EDT, [...] 06/28/19 8:28:42 EDT, Route to Pharmacy Electronically, [id number], [facility] Start Date: 06/28/19 Status: Ordered metoprolol 50 mg oral tablet, extended release 50 mg, 1, tablet, By Mouth, Daily, # 90 tablet, Refills 3, Tot. Refills 3, Maintenance, 06/28/19 8:29:10 EDT, Route to Pharmacy Electronically, [id number], [facility], replaces IR metoprolol Start Date: [...] 03/12/20 9:30:00 EDT, Route to Pharmacy Electronically, [id number], [facility], 185.42, cm, 03/12/20 8:37:00 EDT, Height Start Date: 03/12/20 Status: Ordered Trelegy Ellipta inhalation powder 1 puffs, Inhalation, Daily, at the same time every day, # 1 each, 2 Refills, Maintenance, 05/25/20 7:08:00 EDT, Powder, [facility], 185.42, cm, 05/25/20 6:57:00 EDT, [...] D deficiency(Confirmed) Active 1While living in [place] Diagnosis Diagnosis Type Effective Dates Health Status [facility] Service Informant Asthma Discharge Diagnosis 05/25/20 Tobacco abuse Discharge Diagnosis 05/25/20 Vital Signs Most recent to oldest [Reference Range]: 1 Height 185.42 cm (05/25/20 6:57 AM) Social History Social History Type Response Smoking Status Current every day sm oker; Type: Cigarettes; Tobacco use times per day: 1 PPD now down to 1 pack/week; Number of years: 36; Total pack years: 36; Started at age: 15; entered on: 03/02/17 Sex
--- OUTSIDE RECORDS SUMMARY | 2023-04-09 20:19 | XMS_ITS | Continuity of Care Document ---
Author Name Unknown Organization [facility] Andrzej lt Address [address] [place] [address]- Care Team Providers Care Global Marketing Operations Manager Name Role Phone Lucille KEY, Ga Pollard Primary Care Physician [phone] [facility] Date[facility]s): 08/13/20 - 09/12/20 [facility] Adult [address] [place] [address]- Allergies, Adverse Reactions, Alerts Substance Reaction Severity [...] Not Given Patient Refuses 1Result Comment: [09/21/2018] [facility] [id number] 2Result Comment: [06/10/2017] [facility]: [id number] 3Result Comment: [09/09/2017] [facility]# [id number] 4Result Comment: [09/09/2017] [facility]# [id number] Medications ALPRAZolam 0.5 mg oral tablet 0.5 mg, 1, tablet, By Mouth, 3 times a day, PRN, Refills 0, Maintenance, for anxiety, 08/05/17 11:11:03 Start Date: 08/05/17 Status: Ordered amLODIPine 10 mg oral tablet 10 mg, 1, tablet, By Mouth, Daily, # 90 tablet, Refills 1, Tot. Refills 1, Maintenance, 08/20/20 13:10:00 EST, Route to Pharmacy Electronically, [facility], 185.42, cm, 05/25/20 6:57:00 EDT, Height Start Date: 08/20/20 Status: Ordered apixaban 5 mg oral tablet 1 tablet = 5 mg, By Mouth, 2 times a day, # 60 tablet, 1 Refills, Maintenance, 05/15/20 13:00:00 EDT, Tablet, [facility], 185.42, cm, 04/20/20 9:09:00 EDT, [...] By Mouth, Daily, # 90 tablet, Refills 1, Tot. Refills 1, Maintenance, 08/20/20 13:10:00 EST, Route to Pharmacy Electronically, [facility], 185.42, cm, 05/25/20 6:57:00 EDT, Height Start Date: 08/20/20 Status: Ordered metoprolol 50 mg oral tablet, extended release 50 mg, 1, tablet, By Mouth, Daily, # 90 tablet, Refills 0, Tot. Refills 0, Maintenance, 08/13/20 10:18:00 EST, Route to Pharmacy Electronically, [facility], replaces IR metoprolol, 185.42, cm, 05/25/20 6:57:00 EDT, Height Start Date: 08/13/20 Status: Ordered pantoprazole 40 mg oral delayed [...] 03/12/20 9:30:00 EDT, Route to Pharmacy Electronically, [id number], [facility], 185.42, cm, 03/12/20 8:37:00 EDT, Height Start Date: 03/12/20 Status: Ordered Proventil HFA 90 mcg/inh inhalation aerosol with adapter 2, puffs, Inhalation, 4 times a day, PRN, # 25 Gm, Refills 2, Tot. Refills 2, Maintenance, 204:54:00 EST, Aerosol, Route to Pharmacy Electronically, [id number], [facility], 185.42, cm, 05/25/20 6:57:00 ED... Start Date: 08/02/20 Status: Ordered Trelegy Ellipta inhalation powder 1 puffs, Inhalation, Daily, at the same time every day, # 1 each, 2 Refills, Maintenance, 05/25/20 7:08:00 EDT, Powder, [facility], 185.42, cm, 05/25/20 6:57:00 EDT, [...]
--- OUTSIDE RECORDS SUMMARY | 2023-04-09 20:19 | XMS_ITS | Continuity of Care Document ---
Author Name Unknown Organization [facility] Andrzej lt Address [address] [place] [address]- Care Team Providers Care Superior Court Justice Name Role Phone Lucille KEY, Ga Pollard Primary Care Physician [phone] [facility] 08[facility]13/20 - 09/12/20 [facility] Adult [address] [place] [address]- Allergies, Adverse Reactions, Alerts Substance Reaction Severity [...] Refuses 1Result Comment: [09/21/2018] [facility] [id number] 2Result Comment: [06/10/2017] [facility]: [id number] 3Result Comment: [09/09/2017] [facility]# [id number] 4Result Comment: [09/09/2017] [facility]# [id number] Medications ALPRAZolam 0.5 mg oral tablet 0.5 [...] 03/12/20 9:30:00 EDT, Route to Pharmacy Electronically, [id number], [facility], 185.42, cm, 03/12/20 8:37:00 EDT, Height Start Date: 03/12/20 Status: Ordered Proventil HFA 90 mcg/inh inhalation aerosol with adapter 2, puffs, Inhalation, 4 times a day, PRN, # 25 Gm, Refills 2, Tot. Refills 2, Maintenance, 204:54:00 EST, Aerosol, Route to Pharmacy Electronically, [id number], [facility], 185.42, cm, 05/25/20 6:57:00 ED... Start Date: 08/02/20 Status: Ordered Trelegy Ellipta inhalation powder 1 puffs, Inhalation, Daily, at the same time every day, # 1 each, 2 Refills, Maintenance, 05/25/20 7:08:00 EDT, Powder, [facility], 185.42, cm, 05/25/20 6:57:00 EDT, [...] Vitamin D deficiency(Confirmed) Active 1While living in [place] Social History Social History Type Response Smoking Status Current every day haily rocha; Type: Cigarettes; Tobacco use times per day: 1 PPD now down to 1 pack/week; Number of years: 36; Total pack years: 36; Started at age: 15; entered on: 03/02/17 Sex
--- OUTSIDE RECORDS SUMMARY | 2023-04-09 20:19 | XMS_ITS | Continuity of Care Document ---
Author Name Unknown Organization [facility] Ata Andrzej lt Address [address] [place] [address]- Care Team Providers Care Mineralogy Professor Name Role Phone Not on Staff, PCP Primary Care Physician Unavail able [facility]): 11/03/22 - 12/03/22 [facility] Adult [address] [place] [address]- Allergies, Adverse Reactions, Alerts Substance Reaction Severity [...] Not Given Patient Refuses 1Result Comment: [09/21/2018] [facility] [id number] 2Result Comment: [06/10/2017] [facility]: 33339-212-08 3Result Comment: [09/09/2017] [facility]# [id number] 4Result Comment: [09/09/2017] [facility]# [id number] Medications amLODIPine 10 mg oral tablet 10 mg, 1, tablet, By Mouth, Daily, # 90 tablet, Refills 3, Tot. Refills 3, Maintenance, 08/08/22 10:26:00 EST, Route to Pharmacy Electronically, [facility], 186, cm, 08/08/22 9:54:00 EST, Height, 66, kg, 07/10/22 17:36:00 EDT, Dry Weight Start Date: 08/08/22 Stop Date: 08/29/22 Status: Ordered metoprolol 50 mg oral tablet, extended release 50 mg, 1, tablet, By Mouth, Daily, # 90 tablet, Refills 3, Tot. Refills 3, Maintenance, 08/08/22 10:26:00 EST, Route to Pharmacy Electronically, [facility], replaces IR metoprolol, 186, cm, 08/08/22 9:54:00 EST, Height, 66, kg, 07/10/22... Start Date: 08/08/22 Stop Date: 08/29/22 Status: Ordered pregabalin 25 mg oral capsule 1 capsule = 25 mg, By Mouth, Daily at bedtime, # 30 capsule, 2 Refills, Maintenance, 08/08/22 10:30:00 EST, [facility], Partial fill [...] D deficiency Confirmed Active 1While living in [place] Social History Social History Type Response Smoking Status Current every day sm oker; Type: Cigarettes; Tobacco use times per day: 1 PPD now down to 1 pack/week; Number of years: 36; Total pack years: 36; Started at age: 15; entered on: 03/02/17 Sex Patient Care team information Care Team Personnel Name: Zaida Hall RN Position: [facility] RN Member Role: Primary Care Nurse Name: Yuly Vásquez RN Position: [facility] RN Member Role: Primary Care Nurse Name: Alyson Cage NP Position: [facility] PCO Associate Professional Member Role: Primary Care Nurse Address: Address: [address] [place] [address] Name: Kenney DAS, Gulshan Novak Position: [facility] RN Member Role: Primary Care Nurse Name: Farnaz Adames Position: [facility] PCO RN Member Role: Lifetime Consulting Physician Name: Not on Staff, PCP Position: [facility] Physician (General Medicine) Member Role: PCP Name: Sarah Jackson RN Position: [facility] RN Member Role: Primary Care Nurse Name: Rita Edmonds RN Position: [facility] AMB Nurse Member Role: Primary Care Nurse Name: Sumit Salas RN Position: [facility] RN Member Role: Primary Care Nurse Care Team Related Persons Name: TANIA COYNE Address: [place] [address] Name: ROMERO SOLER Address: home [address] [place] [id number]
--- OUTSIDE RECORDS SUMMARY | 2023-04-09 20:19 | XMS_ITS | Continuity of Care Document ---
Author Name Unknown Organization [facility] Andrzej lt Address [address] [place] [address]- Care Team Providers Care Captain Airline Pilot Name Role Phone Ga Adkins MD Primary Care Physician [phone] Encounter [facility] Date(s): 12/24/20 - 12/31/20 [facility] Adult [address] [place] [address]- Attending Physician: Ga Adkins MD Allergies, Adverse [...] Not Given Patient Refuses 1Result Comment: [09/21/2018] [facility] [id number] 2Result Comment: [06/10/2017] [facility]: 79946-981-79 3Result Comment: [09/09/2017] [facility]# [id number] 4Result Comment: [09/09/2017] [facility]# [id number] Medications acetaminophen-oxyCODONE 325 mg-5 mg oral tablet 1, tablet, By Mouth, Every 4 hours, PRN, # 12 tablet, Refills 0, Tot. Refills 0, Acute, for pain, 01/04/21 11:54:00 EDT, 12/28/20 11:54:00 EDT, [id number], 185.42, cm, 10/15/20 8:52:00 [...] 11/01/20 10:02:00 EST, [id number] 185.42, cm, 10/15/20 8:52:00 EST, [...] 11/01/20 10:02:00 EST, [facility] 185.42, cm, 10/15/20 8:52:00 EST, Height Start Date: 11/01/20 Status: Ordered metoprolol 50 mg oral tablet, extended release 50 mg, 1, tablet, By Mouth, Daily, # 90 tablet, Refills 0, Tot. Refills 0, Maintenance, 11/01/20 10:02:00 EST, [id number] replaces IR metoprolol, 185.42, cm, 10/15/20 8:52:00 EST, Height Start Date: 11/01/20 Status: Ordered pantoprazole 40 mg oral delayed [...] 03/12/20 9:30:00 EDT, Route to Pharmacy Electronically, [id number], [facility], 185.42, cm, 03/12/20 8:37:00 EDT, Height Start Date: 03/12/20 Status: Ordered Proventil HFA 90 mcg/inh inhalation aerosol with adapter 2, puffs, Inhalation, 4 times a day, PRN, # 25 Gm, Refills 2, Tot. Refills 2, Maintenance, :54:00 EST, Aerosol, Route to Pharmacy Electronically, [id number], [facility], 185.42, cm, 05/25/20 6:57:00 ED... Start Date: 08/02/20 Status: Ordered Trelegy Ellipta inhalation powder 1 puffs, Inhalation, Daily, at the same time every day, # 1 each, 2 Refills, Maintenance, 05/25/20 7:08:00 EDT, Powder, [facility], 185.42, cm, [...] Vitamin D deficiency(Confirmed) Active 1While living in [place] Social History Social History Type Response Smoking Status Current every day haily rocha; Type: Cigarettes; Tobacco use times per day: 1 PPD now down to 1 pack/week; Number of years: 36; Total pack years: 36; Started at age: 15; entered on: 03/02/17 Sex
--- OUTSIDE RECORDS SUMMARY | 2023-04-09 20:19 | XMS_ITS | Continuity of Care Document ---
Author Name Unknown Organization [facility] Ata Andrzej lt Address [address] [place] [address]- Care Team Providers Care Senior Account Clerk Name Role Phone Lucille KEY, Ga Pollard Primary Care Physician [phone] [facility] Date[facility]s): 04/03/22 - 05/03/22 [facility] Miguel Raineyley Adult [address] [place] [address]- Attending Physician: Admtr, Ar8 Admitting Physician: Admtr, Ar8 Referring Physician: Admtr, Ar8 Allergies, Adverse Reactions, [...] Comment: [09/21/2018] [facility] [id number] 2Result Comment: [06/10/2017] [facility]: [id number] 3Result Comment: [09/09/2017] [facility]# 58589-725-78 4Result Comment: [09/09/2017] [facility]# 18894-752-02 Medications ALPRAZolam 0.5 mg oral tablet 0.5 mg, 1, tablet, By Mouth, 3 times a day, PRN, Refills 0, Maintenance, for anxiety, 08/05/17 11:11:03 Start Date: 08/05/17 Status: Ordered amLODIPine 10 mg oral tablet 10 mg, 1, tablet, By Mouth, Daily, # 90 tablet, Refills 1, Tot. Refills 1, Maintenance, 02/18/22 13:33:00 EDT, Route to Pharmacy Electronically, [facility], 185.42, cm, 05/07/21 10:02:00 EDT, Height Start Date: 02/18/22 Status: Ordered Compression Stockings See Instructions, # 1 each, Maintenance, surgical, thigh high length 20-30 mm Hg, 04/20/20 9:37:00 EDT, Supply Start Date: 04/20/20 Status: Ordered D3-50 oral capsule 1 capsule, By Mouth, Every week, # 12 capsule, 0 Refills, Maintenance, 03/19/21 12:03:00 EDT, [facility], 185.42, cm, 03/08/21 10:27:00 EDT, Height Start Date: 03/19/21 Status: Ordered lisinopril 20 mg oral tablet 20 mg, 1, tablet, By Mouth, Daily, # 90 tablet, Refills 1, Tot. Refills 1, Maintenance, 02/18/22 13:33:00 EDT, Route to Pharmacy Electronically, [facility], 185.42, cm, 05/07/21 10:02:00 EDT, Height Start Date: 02/18/22 Status: Ordered metoprolol 50 mg oral tablet, extended release 50 mg, 1, tablet, By Mouth, Daily, # 90 tablet, Refills 1, Tot. Refills 1, Maintenance, 02/18/22 13:33:00 EDT, Route to Pharmacy Electronically, [facility], replaces IR metoprolol, 185.42, cm, 05/07/21 10:02:00 EDT, Height Start Date: 02/18/22 Status: Ordered pantoprazole 40 mg oral delayed release tablet See Instructions, TAKE ONE TABLET BY MOUTH EVERY DAY NEEDED FOR DYSPEPSIA, # 90 tablet, 3 Refills, 11/15/21 8:21:00 EST, 185.42, cm, 05/07/21 10:02:00 EDT, Height Start Date: 11/15/21 Status: Ordered PEG-3350 with Electrolytes (Eqv-GoLYTELY) oral [...] 03/01/21 8:55:00 EDT, Route to Pharmacy Electronically, [id number], [facility], 185.42, cm, 10/15/20 8:52:00 EST, Height Start Date: 03/01/21 Status: Ordered Proventil HFA 90 mcg/inh inhalation aerosol with adapter 2, puffs, Inhalation, 4 times a day, PRN, # 25 Gm, Refills 2, Tot. Refills 2, Maintenance, 204:54:00 EST, Aerosol, Route to Pharmacy Electronically, [id number], [facility], 185.42, cm, [...] Vitamin D deficiency(Confirmed) Active 1While living in [place] Social History Social History Type Response Smoking Status Current every day haily rocha; Type: Cigarettes; Tobacco use times per day: 1 PPD now down to 1 pack/week; Number of years: 36; Total pack years: 36; Started at age: 15; entered on: 03/02/17 Sex
--- OUTSIDE RECORDS SUMMARY | 2023-04-09 20:19 | XMS_ITS | Continuity of Care Document ---
Author Name Unknown Organization [facility] ter Address [address] [place] [id number] Care Team Providers Care Lpc Name Role Phone Not on Staff, PCP Primary Care Physician Unavail able Encounter [facility] Date(s): 03/24/23 - 03/30/[address] [address]- Encounter Diagnosis Suicidal ideation(Final) - 03/22/23 Alcohol withdrawal(Final) - 03/22/23 Depression(Final) - 03/22/23 Chest pain(Final) - 03/22/23 Discharge Disposition: A-D/C Home Attending Physician: Amanda Palomares MD Admitting Physician: Jarod Jasso MD Referring Physician: Not on Staff, Referring [...] Not Given Patient Refuses 1Result Comment: [09/21/2018] [facility] [id number] 2Result Comment: [06/10/2017] [facility]: [id number] 3Result Comment: [09/09/2017] [facility]# [id number] 4Result Comment: [09/09/2017] [facility]# [id number] Medications Albuterol (Eqv-ProAir HFA) 90 mcg/inh inhalation aerosol 2 puffs, Inhalation, Every 6 hours, 0 Refills, Maintenance, 03/24/23 14:46:00 EDT, Partial fill upon patient request if the prescription is for a schedule II opioid drug. Start Date: 03/24/23 Status: Ordered amLODIPine 10 mg oral tablet 10 mg, Tablet, By Mouth, 03/30/23 9:00:00 EDT Start Date: 03/30/23 Stop Date: 03/30/23 Status: Completed amLODIPine 5 mg oral tablet 1 tablet = 5 mg, By Mouth, Daily, # 30 tablet, 0 Refills, Maintenance, 03/24/23 14:46:00 EDT, Tablet, Partial fill upon patient request if the prescription is for a schedule II opioid drug. Start Date: 03/24/23 Status: Ordered BuPROPion IR 75 mg oral tablet 1 tablet = 75 mg, By Mouth, 2 times a day, 9AM AND 2PM FOR DEPRESSION Start Date: 03/24/23 Status: Ordered busPIRone 5 mg oral tablet 5 mg, 1, tablet, By Mouth, 2 times a day, 9AM AND 5PM FOR ANXIETY Start Date: 03/24/23 Status: Ordered fluticasone-vilanterol Inhalation, Daily, 0 Refills, Maintenance, 03/16/23 14:08:00 EDT, Inhaler, Partial fill upon patient request if the prescription is for a schedule II opioid drug. Start Date: 03/16/23 Status: Ordered folic acid 1 mg oral tablet 1 mg, By Mouth, Daily, # 30 tablet, Refills 0, Tot. Refills 0, Maintenance, 03/16/23 14:08:00 EDT, Route to Pharmacy Electronically, [facility], Partial fill upon patient request if theprescription is for a schedule II opioid drug., 185... Start Date: 03/16/23 Status: Ordered gabapentin 100 mg oral capsule 100 mg, 1, capsule, By Mouth, 2 times a day, FOR NEUROPATHIC PAIN Start Date: 03/24/23 Status: Ordered hydrOXYzine pamoate 25 mg oral capsule = 50 mg, By Mouth, 3 times a day, PRN Anxiety, 0 Refills, Maintenance, 03/16/23 14:07:00 EDT, Capsule, Partial fill upon patient request if the prescription is for a schedule II opioid drug. Start Date: 03/16/23 Status: Ordered ibuprofen 800 mg oral tablet 800 mg, 1, tablet, By Mouth, 3 times a day, FOR RIGHT BROKEN ANKLE Start Date: 03/24/23 Status: Ordered metoprolol 50 mg oral tablet, extended release 50 mg, 1, tablet, By Mouth, Daily, # 90 tablet, Refills 3, Tot. Refills 3, Maintenance, 08/08/22 10:26:00 EST, Route to Pharmacy Electronically, [facility], replaces IR metoprolol, 186, cm, 08/08/22 9:54:00 EST, Height, 66, kg, 07/10/22... Start Date: 08/08/22 Stop Date: 08/29/22 Status: Ordered metoprolol 50 mg oral tablet, extended release 50 mg, XL Tablet, By Mouth, 03/30/23 9:00:00 EDT Start Date: 03/30/23 Stop Date: 03/30/23 Status: Completed naltrexone 50 mg oral tablet 1 tablet = 50 mg, By Mouth, Daily, # 30 tablet, 0 Refills, Maintenance, 03/24/23 14:46:00 EDT, Tablet, Partial fill upon patient request if the prescription is for a schedule II opioid drug. Start Date: 03/24/23 Status: Ordered oxyCODONE 5 mg oral tablet 5 mg, Tablet, By Mouth, Every 8 hours for 2 days, PRN for Pain , Severe, Routine, 03/29/23 10:36:00EDT, Stop date 03/31/23 10:35:00 EDT Start Date: 03/29/23 Stop Date: 03/31/23 Status: Ordered pantoprazole 40 mg oral delayed release tablet 1 tablet = 40 mg, By Mouth, Daily, FOR GERD Start Date: 03/24/23 Status: Ordered prazosin 1 mg oral capsule 2 mg, Capsule, By Mouth, Hold for SBP<90 DBP<60 HR<60, 03/30/23 21:00:00 EDT Start Date: 03/30/23 Stop Date: 03/30/23 Status: Completed prazosin 2 mg oral capsule 1 capsule = 2 mg, By Mouth, Daily at bedtime, FOR NIGHTMARES Start Date: 03/24/23 Status: Ordered pyridoxine 50 mg oral tablet 50 mg, By Mouth, Daily, # 30 tablet, Refills 0, Tot. Refills 0, Maintenance, 03/16/23 14:08:00 EDT,Route to Pharmacy Electronically, [facility], Partial fill upon patient request if the prescription is for a schedule II opioid drug., 18... Start Date: 03/16/23 Status: Ordered thiamine 100 mg oral tablet 100 mg, By Mouth, 2 times a day, # 30 tablet, Refills 0, Tot. Refills 0, Maintenance, 03/16/23 14:08:00 EDT, Route to Pharmacy Electronically, [facility], Partial fill upon patient request if the prescription is for a schedule II opioid... Start Date: 03/16/23 Status: Ordered Problem List Condition Confirmation Course [...] D deficiency Confirmed Active 1While living in [place] Results Radiology Reports * Exam Date Time Procedure Performing Provider Status 03/22/23 3:52 PM Chest 2 Views Frontal and Lat Chemo Le; Auth (Verified) Notes: (Chest 2 Views Frontal and Lat) Reason For Exam: Angina RESULT: Chest 2 Views Frontal and Lat Chest 2 Views Frontal and Lat Hx of Present Illness: Depression, ETOH abuse; Reason: Angina; Clinical Question(s): Pneumonia COMPARISON: CXR 03/03/2023. FINDINGS: LINES AND TUBES: None. LUNGS AND PLEURA: No focal consolidation. Normal pulmonary vascularity. No pleural effusion. No pneumothorax. HEART, MEDIASTINUM AND JESSI: Heart is normal in size. The aorta is uncoiled and calcified. BONES AND SOFT TISSUES: No acute abnormality. Multiple chronic appearing right-sided rib fractures status post ORIF. Chronic healed left-sided fractures. IMPRESSION: No focal consolidation or pleural effusion. I have personally reviewed the images and I agree with this report. WSN: [id number] Ordering Physician: Anayeli Kuhn Dictated By: Murtaza Grayson MD Dictated Date/Time: 03/22/23 3:57 pm Reviewed By: Marisela Coleman MD Signed By: Marisela Coleman MD Signed Date/Time: 03/22/23 4:02 pm Transcribed By: MANDA Transcribed Date/Time: 03/22/23 3:54 pm Vital Signs Most recent to oldest [Reference Range]: 1 2 3 4 Height 170 cm (03/28/23 3:58 PM) 170 cm (03/27/23 9:50 PM) 170 cm (03/24/23 4:46 PM) Weight 71.1 kg (03/24/23 4:46 PM) 71.1 kg (03/24/23 4:00 PM) 73 kg (03/24/23 6:14 AM) Oxygen Saturation [94-100 %] 96 % (03/30/23 4:00 PM) 98 % (03/30/23 8:00 AM) 96 % (03/29/23 8:00 PM) Pulse Rate [55-90 bpm] 83 bpm (03/30/23 4:00 PM) 84 bpm (03/30/23 9:17 AM) 88 bpm (03/30/23 8:00 AM) Body Mass Index [18.5-24.99 kg/m2] 24.6 kg/m2 (03/24/23 4:46 PM) 25.26 kg/m2 *H* (03/24/23 6:14 AM) 25.26 kg/m2 *H* (03/23/23 6:45 AM) Blood Pressure [90-138/55-84 mm Hg] 96/63mm Hg (03/30/23 7:54 PM) 83/62mm Hg *L* (03/30/23 4:00 PM) 97/64mm Hg (03/30/23 9:17 AM) 97/64mm Hg (03/30/23 9:17 AM) Respiratory Rate [16-30 br/min] 18 br/min (03/30/23 5:49 PM) 18 br/min (03/30/23 4:00 PM) 18 br/min (03/30/23 10:11 AM) Temperature [96.8-100.4 DegF] 97.6 DegF (03/30/23 4:00 PM) 98.1 DegF (03/30/23 8:00 AM) 97.2 DegF (03/29/23 8:00 PM) Mode of Delivery (Oxygen) Room air (03/30/23 4:00 PM) Room air (03/30/23 8:00 AM) Room air (03/29/23 8:00 PM) Blood pressure sites Arm, right (03/30/23 4:00 PM) Arm, right (03/30/23 8:00 AM) Arm, left (03/29/23 8:00 PM) Temperature Route Oral (03/30/23 4:00 PM) Oral (03/30/23 8:00 AM) Axillary (03/29/23 8:00 PM) Dry Weight 71.1 kg (03/24/23 4:46 PM) 73 kg (03/24/23 6:14 AM) 73 kg (03/23/23 6:45 AM) Weight Obtained Via Bed scale (03/24/23 4:46 PM) Bed scale (03/24/23 4:00 PM) Social History Social History Type Response Smoking Status Current every day sm oker; Type: Cigarettes; Tobacco use times per day: 1 PPD now down to 1 pack/week; Number of years: 36; Total pack years: 36; Started at age: 15; entered on: 03/02/17 Sex History and physical note * Romero KEY, Jarod Bennett: PERFORM Event Display: History and Physical Hospital Authored Date: [id number] Patient: ??DOMINGA MURRIETA ? Age:??57 Years?Sex:??Male?:??1965?? Chief Complaint/Reason for Consultation Pt called EMS for left side chest pain when cough/deep breathe, being treated for left lung pneumonia, pt reporting SI no plan, drinking all week last drink yesterday, wants help with drinking. History of Present Illness 57-year-old male with past medical history of polysubstance abuse, alcohol dependence, tobacco dependence, anxiety and depression, with recent admission for chest pain which resolved spontaneously. Had been started on phenobarbital protocol for alcohol withdrawal. Was discharged 5 days ago. He is pr esenting??with concerns for alcohol withdrawal, depression, suicidal ideation states that his last drink was 2 days ago. He denies feeling shaky, nauseous, vomiting. He does have a mid substernal chest pain that has been ongoing since the time of his previous admission. He says that it comes and goes. Is not a associated with exertion. Does admit to some anxiety. Denies any back pain, abdominal pain. Has a spiral fracture of the right ankle, is in a boot, seen by orthopedic surgeon at [facility]. [facility]per ER had??suicidal ideation states that his last drink was 2 days ago. But tome he was somnolent post medication. ?? He is on CIWA protocol and getting Phenobarbital. When I saw him he received IV phenobarbital and somnolent . Hitals were stable ?? He was just discharged on 03/16 after admission for similar events ?? He is being admitted again for management of alcohol withdrawal Review of Systems ROS limited due to somnolence due to IV phenobarb for high CIWA score Vitals stable Objective Vital Signs?? Temperature: 98.1 DegF (03/24/23 08:04:00) Temperature Route: Oral (03/24/23 08:04:00) Pulse Rate: 82 bpm (03/24/23 09:00:00) Respiratory Rate: 22 br/min (03/24/23 14:21:00) Systolic Blood Pressure: 122 mm Hg (03/24/23 13:20:00) Diastolic Blood Pressure:??88 mm Hg??High (03/24/23 13:20:00) Blood pressure sites: Arm, left (03/24/23 13:20:00) Mean Arterial Pressure: 91 mm Hg (03/24/23 06:14:00) Pulse Pressure: 34 mm Hg (03/24/23 13:20:00) Oxygen Saturation: 95 % (03/24/23 13:20:00) Mode of Delivery (Oxygen): Room air (03/24/23 13:20:00) Early Warning Score: 5 (03/24/23 14:34:30) ? Physical Exam Somnolent, but opens eye when called and try to engage, but goes back to sleep Lungs: Clear to auscultation bilateral, no wheezing no rales Heart: Regular rate and rhythm, no murmur, no rub or gallop Abdomen: Soft, nontender, nondistended; Bowel sounds present Extremity: No edema cyanosis clubbing Neurological: No focal deficit Assessment/Plan 57 y/o??male with past medical history of polysubstance abuse, alcohol dependence, tobacco dependence, anxiety and depression, with recent admission for chest pain which resolved spontaneously who was discharged on 03/16 He is presenting today with concerns for alcohol withdrawal, depression, suicidal ideation ; statesthat his last drink was 2 days ago. ? Alcohol dependence. Alcohol withdrawal with hallucinations.: ?? CIWA score was 20 Already placed on Phenobarbital procol ?? Plan: Will continue CIWA protocol with phenobarbital. Multivitamin, folic acid, thiamine. Addiction medicine consult Treatment of underlying depression, anxiety. ?? Psychiatry consult ? Chronic conditions: ? Chest pain Atypical non cardiac Trop 15--12, flat non cardiac no further w/up needed ? COPD, emphysema, asthma. Smoking ?? Stable Smoking cessation. DuoNebs p.r.n. ?? Depression/anxiety. Suicidal ideation. Psychiatry consult ?? Could be nospecific in the context of alcohol intoxication, however, need crisis/psyche eval ? CT finding of ground-glass nodules up to [address] followup in 3-6 months. ??The patient was notified and is aware of this recommendation and the importance of followup. ?? Recent right ankle spiral fracture. The patient apparently was seen at an outside orthopedic surgeon,?? at the [facility]. patient preferably should follow up with his outside hospital provider who saw him initially. ? DVT PPX: SQ Lovenox ?? Code: Full ?? Histories Allergies Allergies ?(Active and Proposed Allergies Only) traMADol? (Severity: Unknown severity, Onset: Unknown) ?Reactions: racing thoughts penicillins? (Severity: Unknown severity, Onset: Unknown) ?Reactions: hives aspirin? (Severity: Unknown severity, Onset: Unknown) ? Past Medical History/Problem List Active Problems??(22) Anxiety disorder Anxious depression Asthma Benign hypertension Caregiver stress Claustrophobia Deep vein thrombosis (DVT) Dysphagia Dysthymic disorder Elevated cholesterol Elevated transaminase level GERD (gastroesophageal reflux disease) Hepatic steatosis Left rib fracture, sixth Low back pain Lower extremity pain Mild persistent asthma Odynophagia Anoxic-Ischemic Brain Injury Status post dilation of esophageal narrowing Tobacco abuse Vitamin D deficiency ? Past Surgical History Chest X-ray: 08/20/17 ORIF of the right #4-8 rib fractures: 08/06/17 Plain X-ray ribs abnormal: 08/05/17 Forearm X-ray: 08/05/17 PFT: 06/11/17 Lung perfusion study: 02/18/17 EK02/17/17 Liver US scan: 02/17/17 Chest X-ray: 02/16/17 EK10/29/16 Cardiovascular stress testin10/23/16 EK10/22/16 Chest X-ray: 10/22/16 Appendectomy: 09/14/83 H/O inguinal hernia repair: 09/14/81 Dilatation of esophageal stricture ? Social History Alcohol Details:??Binge drinking: No. Details:??Use: Current. ??Frequency: 1-2 times per week. ??Type: Beer. Employment/School Details:??Status: Disabled. 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 Exercise Details:??Regular exercise: No. Home/Environment Details:??Living situation: Home/Independent. ??Lives with: Mother. ??Feels unsafe at home: No. Nutrition/Health Details:??Diet: Regular. Substance Abuse Details:??Use: Current. ??Type: Marijuana. ??Frequency: Daily. Tobacco Details:??Current every day smoker, Type: Cigarettes. ??Tobacco use times per day: 1 PPD now down to 1 pack/week. ??36 Number of years:. ??Total pack years: 36. ??Started at age: 15 Years. ? Family History Mother: AAA - Abdominal aortic aneurysm; Congenital heart disease; Hyperlipidemia Sister: Lupus ? 20-JAN-2015 22:35:10<$> ? Medications Home Medications Albuterol (Albuterol (Eqv-ProAir HFA) 90 mcg/inh inhalation aerosol)?2?puff(s)?Inhalation?Every 6 hours Amlodipine (amLODIPine 5 mg oral tablet)?1?tab(s)?5?Milligram?By Mouth?Daily BuPROpion (BuPROPion IR 75 mg oral tablet)?1?tab(s)?75?Milligram?By Mouth?2 timesa day?9AM AND 2PM FOR DEPRESSION BusPIRone (busPIRone 5 mg oral tablet)?5?Milligram?1?tablet?By Mouth?2 times a day?9AM AND 5PM FOR ANXIETY fluticasone-vilanterol?Inhalation?Daily Folic Acid (folic acid 1 mg oral tablet)?1?Milligram?By Mouth?Daily Gabapentin (gabapentin 100 mg oral capsule)?100?Milligram?1?capsule?By Mouth?2 times a day?FOR NEUROPATHIC PAIN HydrOXYzine (hydrOXYzine pamoate 25 mg oral capsule)?50?Milligram?By Mouth?3 times a day?as needed?Anxiety Ibuprofen (ibuprofen 800 mg oral tablet)?800?Milligram?1?tablet?By Mouth?3 times a day?FOR RIGHT BROKEN ANKLE Metoprolol (metoprolol 50 mg oral tablet, extended release)?50?Milligram?1?tablet?ByMouth?Daily Naltrexone (naltrexone 50 mg oral tablet)?1?tab(s)?50?Milligram?By Mouth?Daily Pantoprazole (pantoprazole 40 mg oral delayed release tablet)?1?tab(s)?40?Milligram?By Mouth?Daily?FOR GERD Prazosin (prazosin 2 mg oral capsule)?1?capsule?2?Milligram?By Mouth?Daily at bedtime?FOR NIGHTMARES Pyridoxine (pyridoxine 50 mg oral tablet)?50?Milligram?By Mouth?Daily Thiamine (thiamine 100 mg oral tablet)?100?Milligram?By Mouth?2 times a day ? Results Recent Labs TOXICOLOGY/TDM Barbiturate Screen, Urine POSITIVE (Abnormal)?? 03/23/2023 21:26 Cannabinoid Screen, Urine POSITIVE (Abnormal)?? 03/23/2023 21:26 Cocaine Metabolite Screen, Urine NONE DETECTED ()?? 03/23/2023 21:26 Benzodiazepine Screen, Urine NONE DETECTED ()?? 03/23/2023 21:26 Amphetamine Screen, Urine NONE DETECTED ()?? 03/23/2023 21:26 Opiate Screen, Urine NONE DETECTED ()?? 03/23/2023 21:26 ?? VIROLOGY COVID-19 by RT-PCR NEGATIVE ()?? 03/23/2023 02:44 ? EKG study * Event Display: EKG Authored Date: * Event Display: ECG 12-Lead Authored Date: Please click on pdf link to open report * Event Display: ECG 12-Lead Authored Date: Ventricular Rate: 79 BPM Atrial Rate: 79 BPM P-R Interval: 140 ms QRS Duration: 82 ms Q-T Interval: 400 ms QTC Calculation(Bazett): 458 ms P [place]: 54 degrees R [place]: -44 degrees T [place]: -9 degrees Normal sinus rhythm Left axis deviation Nonspecific ST abnormality Abnormal ECG When compared with ECG of 10-JUL-2022 08:57, QRS axis Shifted left Confirmed by MARK JASSO MD ([id number]) on 03/25/2023 9:53:29 PM [place]: MARK JASSO MD Cardiology * Event Display: Cardiac Rhythm Strips Authored Date: Hospital Progress note * Elise Gilliam RN: PERFORM Event Display: Progress Note Hospital Authored Date: Report from day RN given to RN at [facility]. Pt signed form for belongings that were returned to him that were on the patient belongings form. Report given to EMS. Gabapentin was provided to EMT along with the rest of the patients personal medication. Iv removed upon discharge (intact). Pt walkedover from his bed to the stretcher with all his belongings- RN checked to confirm that nothing was left in the room. * Marielle KEY, Amanda: PERFORM Event Display: Progress Note Hospital Authored Date: Patient: ??DOMINGA MURRIETA ? Age:??57 Years?Sex:??Male?:??1965?? Subjective Patient seen and examined bedside. Complains of being anxious and states that only Thorazine helps. ??Evaluated by psychiatry??prior to the weekend and??acknowledged. ??Patient is on Thorazine. Await inpatient psychiatric unit.?? Noted to have acute renal insufficiency and recommended oral hydration. Review of Systems All the other systems including General, HEENT, Cardiac, Respiratory, Gastrointestinal, Genito urinary, Neurological, Musculoskeletal, cutaneous systems are negative except as mentioned above. Objective Measurements?? Height: 170 cm (03/28/23) Weight: 71.1 kg (03/24/23) Dry Weight: 71.1 kg (03/24/23) Body Mass Index: 24.6 kg/m2 (03/24/23) ? Vital Signs?? Temperature: 98.1 DegF (03/30/23 08:00:00) Temperature Route: Oral (03/30/23 08:00:00) Pulse Rate: 84 bpm (03/30/23 09:17:00) Respiratory Rate: 18 br/min (03/30/23 09:11:00) Systolic Blood Pressure: 97 mm Hg (03/30/23 09:17:00) Systolic Blood Pressure: 97 mm Hg (03/30/23 09:17:00) Diastolic Blood Pressure: 64 mm Hg (03/30/23 09:17:00) Diastolic Blood Pressure: 64 mm Hg (03/30/23 09:17:00) Blood pressure sites: Arm, right (03/30/23 08:00:00) Pulse Pressure: 33 mm Hg (03/30/23 08:00:00) Oxygen Saturation: 98 % (03/30/23 08:00:00) Mode of Delivery (Oxygen): Room air (03/30/23 08:00:00) Early Warning Score: 1 (03/30/23 11:55:45) ? Physical Exam General: AAO X 3, not in acute distress HEENT: Normocephalic, Atraumatic, PEERLA, EOMI Neck: soft, supple Respiratory: CTA B/L, no wheezing, no crackles Cardiovascular: RRR, S1, S2 heard, no murmurs Gastrointestinal: Soft, non tender, normal Bowel sounds, nondistended SUPERVISOR GEAR REPAIR: Alert awake and oriented X 3 . No acute focal neurological deficits Musculoskeletal/Back: Range of motion all 4 extremities within normal limits Extremities: right foot in a removable boot Assessment/Plan 57-year-old male with a past medical history including polysubstance abuse, alcohol dependence, tobacco dependence, anxiety and depression, recent admission to [facility] 03/12-03/16 with Alcohol withdrawal??and SI, now representing to the ED again with alcohol withdrawal and hallucinations. Also admits to and would like inpatient treatment.??He was started on a phenobarbital protocol for his alcohol withdrawal. ?? Alcohol dependence Alcohol withdrawal with hallucinations Alcoholic hepatitis CIWA protocol with phenobarbital. Low CIWA scores. Not in withdrawal at this time. Continue multivitamin, folic acid, thiamine. Follow up with addiction medicine. The patient will be started on naltrexone 50 mg p.o. daily once alcohol withdrawal has completed and LFTs normalized. (Unfortunately pt did not receive a rx upon discharge) Treatment of underlying depression, anxiety. Currently not in withdrawals. ??Discontinued scheduled phenobarbital Continue to monitor LFTs, slowly trending down. ?? Tobacco dependence. Smoking cessation reviewed with the patient. Nicotine replacement therapy was started. ?? COPD, emphysema, asthma. Stable. Smoking cessation. DuoNebs p.r.n. ?? Depression/anxiety Suicidal ideation Awaiting inpatient psychiatric admission Continue current regimen with buspirone, bupropion, prazosin. Trazodone,??Thorazine,??Hydroxyzine, Haldol PRN 1:1, suicide precautions??discontinued as per psychiatry ?? CT finding of ground-glass nodules up to [address] followup in 3-6 months. The patient was notified and is aware of this recommendation and the importance of followup. ?? Recent right ankle spiral fracture. The patient initially was seen??by an??outside orthopedic surgeon at [facility]. Our orthopedic team??was willing to give recommendations regarding weightbearing status: WBAT with rec to follow up with his outside hospital provider who saw him initially. Patient is allergic to tramadol.?? Unable to give Tylenol for pain control given abnormal LFTs.?? Toradol not effective. Received oxycodone prior and helpful. ?? OMN:??awaiting inpatient psychiatric admission, cannot leave AMA As per psychiatry patient does not require one-to-one??monitoring and??patient feels safe in the hospital. * Marielle KEY, Amanda: PERFORM Event Display: Progress Note Hospital Authored Date: Patient: ??DOMINGA MURRIETA ? Age:??57 Years?Sex:??Male?:??1965?? Subjective Patient seen and examined bedside. States that the right foot pain is worse when he walks. Evaluated by psychiatry over the??prior to the weekend and discussed with them today.?? They opinedpatient does not need any constant freight loader at this time patient feels safe in the hospital. ??Ongoing inpatient psych bed??search??for inpatient psychiatric??hospitalization LFTs continue to be mildly elevated. ??Will hold off further phenobarbital at this time. Patient is allergic to tramadol and received oxycodone prior??for pain control Review of Systems Right foot in??removable boot. All the other systems including General, HEENT, Cardiac, Respiratory, Gastrointestinal, Genito urinary, Neurological, Musculoskeletal, cutaneous systems are negative except as mentioned above. Objective Measurements?? Height: 170 cm (03/28/23) Weight: 71.1 kg (03/24/23) Dry Weight: 71.1 kg (03/24/23) Body Mass Index: 24.6 kg/m2 (03/24/23) ? Vital Signs?? Temperature: 97.4 DegF (03/29/23 07:00:00) Temperature Route: Oral (03/29/23 07:00:00) Pulse Rate: 86 bpm (03/29/23 08:08:00) Respiratory Rate: 16 br/min (03/28/23 20:48:00) Systolic Blood Pressure: 101 mm Hg (03/29/23 08:08:00) Systolic Blood Pressure: 101 mm Hg (03/29/23 08:08:00) Diastolic Blood Pressure: 68 mm Hg (03/29/23 08:08:00) Diastolic Blood Pressure: 68 mm Hg (03/29/23 08:08:00) Blood pressure sites: Arm, left (03/29/23 07:00:00) Mean Arterial Pressure: 75 mm Hg (03/28/23 15:58:00) Pulse Pressure: 35 mm Hg (03/29/23 07:00:00) Oxygen Saturation: 96 % (03/29/23 07:00:00) Mode of Delivery (Oxygen): Room air (03/29/23 07:00:00) Early Warning Score: 2 (03/29/23 08:15:24) ? Physical Exam General: AAO X 3, not in acute distress HEENT: Normocephalic, Atraumatic, PEERLA, EOMI Neck: soft, supple Respiratory: CTA B/L, no wheezing, no crackles Cardiovascular: RRR, S1, S2 heard, no murmurs Gastrointestinal: Soft, non tender, normal Bowel sounds, nondistended SUPERVISOR GEAR REPAIR: Alert awake and oriented X 3 . No acute focal neurological deficits Musculoskeletal/Back: Range of motion all 4 extremities within normal limits Extremities: right foot in a removable boot Assessment/Plan 57-year-old male with a past medical history including polysubstance abuse, alcohol dependence, tobacco dependence, anxiety and depression, recent admission to [facility] 03/12-03/16 with Alcohol withdrawal??and SI, now representing to the ED again with alcohol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 struggle with anxiety and are medicated with benzodiazepines. ? Personal and Social History Brief biography: Dominga was born in [place]. 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 Received special education services all throughout school. Was mostly raised by his father and a couple of different stepmothers in [place], [place]. Both his parents are now . He has a brother in [place] and a sister in [place]. He had a girlfriend who is now . Tried to join the but was disappointed that he couldn't pass the civil service exam. 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 Receives Social Security due to his learning disability. Living with his nephew. His nephew is his health care proxy and is a great support for him, although Dominga feels guilty because his nephew his busy with his own and two children. Charted history of incarceration but details are unclear. Stressors: Limited income (<$1000 per month). Unhoused. Limited social support. Trauma History: Per crisis evaluation, He reproted his ex cheating on him, his ex girlfriend dying in her sleep and his mother dying last year??was all very traumatic for him. ? Review of Systems Pertinent positives as listed above in HPI. ??Otherwise, remainder of review of systems negative. ? Mental Status Vitals & Measurements T:??97.8?F?? HR:??72??(Peripheral)?? RR:??16?? BP:??121/68?? SpO2:??94%?? HT:??170??cm?? WT:??73??kg?? BMI:??25.26? Appearance: fair grooming, dressed in a hospital gown, thin; normal eye contact Attitude: cooperative Motor Activity: calm, no involuntary movements or abnormalities of motor tone; coordination unremarkable, not observed ambulating Sight and hearing: apparently intact Mood: depressed Affect: frequently tearful, congruent with mood Speech: normal rate; normal prosody - spontaneous, good articulation, clear tone, appropriately placed inflections; normal volume Perception: reports visual and auditory hallucinations; no objective impairment, preoccupation, or responding to internal stimuli?? Cognition: alert, oriented to person/place/time/situation/object, memory intact, concrete, good attention span, able to concentrate Judgment: severely??impaired ability to make reasonable decisions Insight: poor Thought Process: normal productivity, goal-directed Thought Content: some paranoia, guilt over not doing enough for his mother, unresolved grief; chronic passive suicidality; denies current aggressive or psychotic ideas, including thoughts of physical or sexual aggression or homicide? Adherence: good Reliability: fair historian Suicidality/Self-destructive Behavior: none Homicidality/Violence: none?? Mccormick Suicide Score Mccormick Suicide Assessment Ca (03/22/23) Mccormick Suicide Score Last Asked Ca (03/23/23) Suicidal Intent No Plan Last Asked-CSSRS: Yes (03/23/23) Suicidal Intent No Plan Past Month-CSSRS: No (03/22/23) Suicidal Thoughts Method Lst Asked-CSSRS: No (03/23/23) Suicidal Thoughts Method Past Mon-CSSRS: No (03/22/23) Suicidal Thoughts Past Month - CSSRS: Yes (03/22/23) Suicidal Thoughts Since Last Asked-CSSRS: Yes (03/23/23) Suicide Behavior Lifetime - CSSRS: No (03/22/23) Suicide Behavior Past 3 Months - CSSRS: No (03/12/23) Suicide Behavior Since Last Asked-CSSRS: No (03/23/23) Suicide Intent w/Plan Last Asked-CSSRS: No (03/23/23) Suicide Intent w/Plan Past Month - CSSRS: No (03/22/23) What Would You Do? - CSSRS: patient states it was drinking, but now i am going to think out of thebox (03/13/23) Wish to be Past Month - CSSRS: No (03/22/23) Assessment/Plan ?? Assessment? In brief, this is a 57-year-old male with past medical history significant for polysubstance abuse,alcohol dependence, tobacco dependence, anxiety and depression, with recent admission for chest pain which resolved spontaneously who initially presented to [facility] for auditory and visual hallucinations. At this point in time, the patient has been medically cleared and referred to??crisis clinicians??for evaluation and assistance with disposition for potential inpatient psychiatric hospitalization. The emergency psychiatry service was consulted for assistance with medication management. Reviewed data including medical records, crisis evaluations, test results. Initial psychiatric evaluation revealed patient to be reporting continued depression and continued auditory and visual hallucinations. Hallucinations started in the last couple of years. Patient reports that they happen independent of alcohol withdrawal. Also reporting suicidal ideation without a plan. Denies homicidal ideation and desire for nonsuicidal self-injury. This is an established problem that is inadequately controlled - he presented a month ago with similar symptoms. Asked the patient about treatment-related preferences. Explained to the patient the differential diagnosis, risks of untreated illness, treatment options, and benefits and risks of treatment. Disposition as per crisis services. ?? Diagnoses Major depressive disorder, r/o MDD w/psychotic features, r/o Substance-induced psychosis Auditory hallucinations Visual hallucinations Suicidal ideation Alcohol use disorder, severe Cannabis use disorder Nightmares ?? Recommendations -Disposition as per??[facility], albeit currently a bed search for inpatient psychiatric hospitalization. -Continue home medications: ? -buproprion IR 75 mg PO twice daily @0900 @1400 ? -Buspar 5 mg PO twice daily @0900 @1700 ? -Prazosin 2 mg PO daily at bedtime, hold for SBP<90 DBP<60 HR<60 -Hold home medication: naltrexone. Patient requested oxycodone, an opioid medication. Can resume naltrexone 7-10 days after last opioid dose. -Start Vistaril 50 mg PO??q6h PRN anxiety -Start Trazodone 50 mg PO nightly PRN insomnia, may repeat x 1 -Start Seroquel 50 mg PO??q4h PRN agitation. Seroquel has??antipsychotic and antidepressant properties. If patient utilizes Seroquel and finds it beneficial, can consider starting a scheduled dose. -The preference is for PO medications, but if the patient refuses the oral medications and there issufficient acute safety concern, can judiciously utilize IMs for severe agitation. Would recommend??Haldol 5 mg / Ativan 2 mg / Benadryl 50 mg due to shortage of IM Zyprexa.?? -Would note that these medications are only being utilized in the ER while the patient awaits placement. Long-term need for these medications will need to be assessed by the patient's future treatingpsychiatrist. -Because patient is here in a psychiatric crisis, it is particularly important to be clear when communicating with them. Please try to avoid medical jargon. -Seclusion or restraint may only be used as interventions of last resort in the management of severe agitation in patient. If they are used, seclusion and restraint episodes should be as short as possible, dignified, and as safe as possible for all involved. Patient preference should always be considered when feasible. -Follow-up baseline labs including TSH with reflex T4 to rule out organic etiology of presenting symptoms. -Follow-up urine toxicology.? Thank you for allowing us to participate in this patient's care. We will continue to follow the patient as needed by the primary team. Please feel free to contact the Psychiatry consult service ([phone] or [phone]) with any questions or concerns.? Case and plan discussed with attending psychiatrist, Dr. Amanda Abraham. Recommendations??cortexted to Dr. Joe Erazo. ? Dasha [facility]- Emergency Psychiatry Services Division of Consultation-Liaison Psychiatry [facility] ? Problem List/Past Medical History Ongoing Anxiety disorder Anxious depression Asthma Benign hypertension Caregiver stress Claustrophobia Deep vein thrombosis (DVT) Dysphagia Dysthymic disorder Elevated cholesterol Elevated transaminase level GERD (gastroesophageal reflux disease) Hepatic steatosis Left rib fracture, sixth Low back pain Lower extremity pain Mild persistent asthma Odynophagia Anoxic-Ischemic Brain Injury Status post dilation of esophageal narrowing Tobacco abuse Vitamin D deficiency Procedure/Surgical History Chest X-ray: 08/20/17 ORIF of the right #4-8 rib fractures: 08/06/17 Plain X-ray ribs abnormal: 08/05/17 Forearm X-ray: 08/05/17 PFT: 06/11/17 Lung perfusion study: 02/18/17 EK02/17/17 Liver US scan: 02/17/17 Chest X-ray: 02/16/17 EK10/29/16 Cardiovascular stress testin10/23/16 EK10/22/16 Chest X-ray: 10/22/16 Appendectomy: 09/14/83 H/O inguinal hernia repair: 09/14/81 Dilatation of esophageal stricture Medications Acetaminophen Tablet, 650 mg, By Mouth, Every 8 hours, PRN amLODIPine 10 mg oral tablet, 10 mg= 1 tablet, By Mouth, Daily, 3 refills amLODIPine 10 mg oral tablet, 10 mg, By Mouth, Daily buPROPion 150 mg/24 hours (XL) oral tablet, extended release, 150 mg, By Mouth, Daily BuPROPion IR 75 mg oral tablet, 75 mg, By Mouth, 2 times a day busPIRone 10 mg oral tablet, 5 mg, By Mouth, Daily busPIRone 10 mg oral tablet, 5 mg, By Mouth, Daily fluticasone-vilanterol, Inhalation, Daily folic acid 1 mg oral tablet, 1 mg, By Mouth, Daily folic acid 1 mg oral tablet, 1 mg, By Mouth, Daily hydrOXYzine pamoate 25 mg oral capsule, 50 mg, By Mouth, 3 times a day, PRN hydrOXYzine pamoate 25 mg oral capsule, 50 mg, By Mouth, 3 times a day, PRN LORazepam Tablet, 1 mg, By Mouth, Every hour, PRN LORazepam Tablet, 2 mg, By Mouth, Every hour, PRN LORazepam Tablet, 3 mg, By Mouth, Every hour, PRN LORazepam Tablet, 4 mg, By Mouth, Every hour, PRN Maalox Plus Liquid, 30 mL, By Mouth, Every 8 hours, PRN Melatonin Tablet, 9 mg, By Mouth, Daily at bedtime, PRN metoprolol 50 mg oral tablet, extended release, 50 mg= 1 tablet, By Mouth, Daily, 3 refills metoprolol 50 mg oral tablet, extended release, 50 mg, By Mouth, Daily pregabalin 25 mg oral capsule, 25 mg= 1 capsule, By Mouth, Daily at bedtime, 2 refills pregabalin 25 mg oral capsule, 25 mg, By Mouth, Daily at bedtime pyridoxine 50 mg oral tablet, 50 mg, By Mouth, Daily pyridoxine 50 mg oral tablet, 50 mg, By Mouth, Daily thiamine 100 mg oral tablet, 100 mg, By Mouth, 2 times a day thiamine 100 mg oral tablet, 100 mg, By Mouth, 2 times a day Allergies aspirin penicillins??(hives) traMADol??(racing thoughts) Lab Results Abs. Baso: 0.1 k/mm3 (03/22/23) Abs. Eo: 0.2 k/mm3 (03/22/23) Abs. Imm Gran: 0 k/mm3 (03/22/23) Abs. Lymph: 1 k/mm3 (03/22/23) Abs. [place]: 0.5 k/mm3 (03/22/23) Abs. Neut: 5.2 k/mm3 (03/22/23) Abs. NRBC: 0 k/mm3 (03/22/23) Albumin: 4 Gm/dL (03/13/23) Alkaline Phosphatase:??136 units/L??High (03/13/23) ALT (SGPT): 27 units/L (03/13/23) Amphetamine Screen, Urine: NONE DETECTED (03/12/23) Anion Gap: 12 (03/22/23) AST (SGOT): 19 units/L (03/13/23) Barbiturate Screen, Urine: POSITIVE Abnormal (03/12/23) Baso %: 0.9 % (03/22/23) Benzodiazepine Screen, Urine: NONE DETECTED (03/12/23) Bicarbonate Level: 26 mmol/L (03/22/23) Bilirubin, Direct: <0.2 (03/13/23) Bilirubin, Indirect: Direct bilirubin is less than the measureable limit. Therefore, indirect (03/13/23) Bilirubin, Total: 0.3 mg/dL (03/13/23) BUN:??24 mg/dL??High (03/22/23) Calcium: 9.6 mg/dL (03/22/23) Cannabinoid Screen, Urine: POSITIVE Abnormal (03/12/23) Chloride:??97 mmol/L??Low (03/22/23) Cocaine Metabolite Screen, Urine: NONE DETECTED (03/12/23) COVID-19 by RT-PCR: NEGATIVE (03/23/23) COVID-19 POC Result: NEGATIVE (02/22/23) Creatinine-Blood: 1.1 mg/dL (03/22/23) D-Dimer: 0.89 mg/L FEU (03/11/23) Eos %: 3.3 % (03/22/23) Est Creatinine Clearance: 69.93 mL/min (03/22/23) Estimated GFR Creatinine: 79 ML/MIN/1.73 M2 (03/22/23) Ethanol, Serum or Plasma: 86 mg/dL Abnormal (03/11/23) Glucose Level:??112 mg/dL??High (03/22/23) Glucose, POC:??114 mg/dL??High (02/22/23) Hct:??38.8 %??Low (03/22/23) Hepatitis C Ab: NEGATIVE (03/11/23) Hgb:??13.3 Gm/dL??Low (03/22/23) High Sensitivity Troponin (HSTnT): 12 ng/L (03/22/23) HIV 4th Generation Ab-Ag Result: NEGATIVE (03/11/23) Imm Gran: 0.4 % (03/22/23) INR: 0.9 (03/13/23) Lipase: 16 units/L (03/11/23) Lymph %:??14.2 %??Low (03/22/23) Magnesium: 1.7 mg/dL (03/14/23) MCH: 32.8 pg (03/22/23) MCHC: 34.3 g/dL (03/22/23) MCV:??95.6 femtoliters??High (03/22/23) Methylmalonic Acid Level: 376 (03/13/23) [place] %: 7.3 % (03/22/23) MPV: 10.2 femtoliters (03/22/23) Neut %: 73.9 % (03/22/23) Nucleated RBC (Automated): 0 #/100 WBC'S (03/22/23) PCP Screen, Urine: NONE DETECTED (03/12/23) Phenobarb Level:??9.5 mg/L??Low (03/13/23) Platelet Comment: FEW (03/22/23) Platelet Count: 203 k/mm3 (03/22/23) Platelet Estimate: ADEQUATE (03/22/23) Potassium: 4 mmol/L (03/22/23) Protein, Total: 6.4 Gm/dL (03/13/23) Protime (PT): 9.9 seconds (03/13/23) RBC:??4.06 m/mm3??Low (03/22/23) RDW-SD: 42.4 femtoliters (03/22/23) Sodium: 135 mmol/L (03/22/23) WBC: 7 k/mm3 (03/22/23) Diagnostic Results ?? Result type:?Chest 2 Views Frontal and Lat Result date:?March 22, 2023 15:52 EDT Result status:?Auth (Verified) Result title:?XR Chest 2 Views Frontal and Lat Performed by:?Murtaza Grayson MD on March 22, 2023 15:57 EDT Verified by:?Marisela Coleman MD on March 22, 2023 16:02 EDT Encounter info:?[id number], [facility], Emergency, 03/22/2023 -? Reason For Exam Angina ?? RESULT: Chest 2 Views Frontal and Lat Chest 2 Views Frontal and Lat? Hx of Present Illness: Depression, ETOH abuse; Reason: Angina; Clinical Question(s): Pneumonia ?? IMPRESSION: ?? No focal consolidation or pleural effusion. ? * Amanda Abraham DO: PERFORM Event Display: Consultation Note Authored Date: [id number] Supervising Physician: Patient was not seen by this business writer, but chart reviewed and discussed the case and its management??with??Dasha Looney,??PMHNP-BC as documented. ??I agree with the assessment and plan as documented above based upon her evaluation.? Patient was initially pending transfer to [facility] for 03/24/23 for inpatient psychiatric stabilization, but now unfortunately medically admitted for alcohol withdrawal earlier this morning, 03/24/23. Please keep the psychiatry consultation service apprised of medical clearance (pager [phone])??for re- referral back to the crisis team for assistance with placement for inpatient psychiatric facility. 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 Patient may NOT leave [facility] without psychiatry clearance. If there is a concern for potential alcohol withdrawal seizures, kindly discontinue the Wellbutrin IR as this antidepressant medication can possibly lower the seizure threshold. ? Amanda Abraham D.O.?? [employer], Emergency Psychiatry Services Division of Consultation-Liaison Psychiatry Department of Psychiatry [facility] ?? Note * Mima Jurado RN: PERFORM Event Display: Patient Education/Instruction Authored Date: [id number] Inpatient Adult Discharge Instructions [address] [address] Name: DOMINGA MURRIETA : 1965 Visit: 03/24/2023 07:17:00 Current Date: 03/30/2023 19:43 Account: [id number] Inpatient Adult Discharge Instructions We would like to thank you for allowing us to assist you with your healthcare needs. The following includes patient education materials and information regarding your injury/illness. Our entire staffstrives to provide an excellent experience for our patients and their families. PLEASE ENSURE YOU FOLLOW-UP PER THE INSTRUCTIONS BELOW! ?? YOUR OPINION IS IMPORTANT TO US! Please complete the survey you may receive by mail or email. Your feedback will be used to make improvements to the healthcare experiences of our patients and their families. Surveys are administered by [employer]. ?? If further treatment with your primary care physician or another doctor is recommended, it is important for you to keep the appointment. Call your primary care physician or return to the Emergency Department immediately if your condition worsens, fails to improve, or new symptoms develop. If you need to find a doctor, you can call [facility] for a referral at [phone] or toll free at [phone] [email or web address] ([phone]) or log in to [email or web address] ?? You can view and manage your care through the patient portal or by using a health care zach of your choosing. [employer] is a website that allows you to securely view your medical information including your hospital discharge summary, office visit summaries, medications and follow-up visits. You can also request appointments, renew medications, and request access to your medical information using a health care zach of your choosing, or just ask a question. You can enroll at [email or web address] or register during your next office visit. You have been discharged from [facility], Patient Care Unit: D6B. If you have any questions regarding these instructions after you leave, please call us and we will be happy to assist you. [facility] Your Care Team Attending Physician Marielle KEY, Amanda Discharging Providers Gabrielle Urbano MD Reason for Admission Pt called EMS for left side chest pain when cough/deep breathe, being treated for left lung pneumonia, pt reporting SI no plan, drinking all week last drink yesterday, wants help with drinking. Your Diagnosis Suicidal ideation Alcohol withdrawal Depression Chest pain Marijuana use, continuous Nicotine dependence Alcohol use disorder, severe, dependence Tests Performed Below is a partial list of the tests performed during your hospitalization. You may have had other tests and procedures not included in this list. Please discuss all test results with your provider. Amphetamine Urine Screen Barbiturate Urine Screen Basic Metabolic Panel Benzodiazepine Urine Screen BUN Cannabinoid Urine Screen CBC CBC w/ Differential Cocaine Urine Screen Comprehensive Metabolic Panel COVID-19 (Novel Coronavirus), Rapid PCR Creatinine Electrolytes Glucose Level HEPATIC FUNCTION PANEL High??Sensitivity??Troponin T HOLD LAVENDER TUBE LFT's Magnesium Level Opiate Screen Urine Phenobarbital Level TSH WITH REFLEX TO FT4 CXR Primary Care Provider Not on Staff, PCP Advance Directive Health Care Proxy on File Yes - Health Care Proxy Discharge Vitals Temperature: 97.6 DegF Height: 170 cm Pulse Rate: 83 bpm Weight: 71.1 kg Respiratory Rate: 18 br/min Body Mass Index: 24.6 kg/m2 Systolic Blood Pressure:??83 mm Hg??Low Body surface area: 1.83 Diastolic Blood Pressure: 62 mm Hg ?? Oxygen Saturation: 96 % ?? Studies Pending All tests and labs ordered during this hospital stay have been completed unless listed below. Please discuss all pending results with your provider listed above in these instructions. ?? Add On Lab Order What to do next Instructions From Your Doctor Discharge Orders Discharge Medications DOMINGA MURRIETA :1965 Visit Date:03/24/2023 Medications: Please continue your medications until treatment is completed or stopped by your provider. Medications not listed below should be discontinued. Discuss any questions related to medications with your provider. What How Much When Instructions Next Dose Changed Amlodipine (amLODIPine 5 mg oral tablet) 1 tab(s) Oral Daily 03/31 9am Changed BuPROpion (BuPROPion IR 75 mg oral tablet) 1 tab(s) Oral Twice a day 9AM AND 2PM FOR DEPRESSION ?? 03/31 9am Changed BusPIRone (busPIRone 5 mg oral tablet) 1 tab(s) Oral Twice a day 9AM AND 5PM FOR ANXIETY ?? 03/31 9am Unchanged Albuterol (Albuterol (Eqv-ProAir HFA) 90 mcg/ inh inhalation aerosol) 2 puff(s) Inhalation Every 6 hours Resume previous schedule Unchanged fluticasone-vilanterol Inhalation Daily 03/31 9am Unchanged Folic Acid (folic acid 1 mg oral tablet) 1 Milligram Oral Daily 03/31 9am Unchanged Gabapentin (gabapentin 100 mg oral capsule) 1 capsule Oral Twice a day FOR NEUROPATHIC PAIN ?? 03/31 9am Unchanged HydrOXYzine (hydrOXYzine pamoate 25 mg oral capsule) 50 Milligram Oral 3 times a day as needed for Anxiety As needed Unchanged Ibuprofen (ibuprofen 800 mg oral tablet) 1 tab(s) Oral 3 times a day FOR RIGHT BROKEN ANKLE ?? 03/31 9am Unchanged Metoprolol (metoprolol 50 mg oral tablet, extended release) 1 tab(s) Oral Daily 03/31 9am Unchanged Naltrexone (naltrexone 50 mg oral tablet) 1 tab(s) Oral Daily 03/31 9am Unchanged Pantoprazole (pantoprazole 40 mg oral delayed release tablet) 1 tab(s) Oral Daily FOR GERD ?? 03/31 9am Unchanged Prazosin (prazosin 2 mg oral capsule) 1 capsule Oral Daily at Bedtime FOR NIGHTMARES ?? 03/30 9pm Unchanged Pyridoxine (pyridoxine 50 mg oral tablet) 50 Milligram Oral Daily 03/31 9am Unchanged Thiamine (thiamine 100 mg oral tablet) 100 Milligram Oral Twice a day 03/31 9am Test Results Below is a partial list of the most recent Laboratory test results done prior to this discharge. You may have had other tests and procedures not included in this list. Please discuss all test resultswith your provider. Est Creatinine Clearance - 59.17 mL/min (03/30/2023) Amphetamine Urine Screen (03/23/2023) ???Amphetamine Screen, Urine - NONE DETECTED Barbiturate Urine Screen (03/23/2023) ???Barbiturate Screen, Urine - POSITIVE Basic Metabolic Panel (03/30/2023) ???Sodium - 136 mmol/L???Potassium - 4.3 mmol/L???Chloride - 99 mmol/L???Bicarbonate Level - 28 mmol/L???Anion Gap - 9???Glucose Level - 111 mg/dL???BUN - 14 mg/dL???Creatinine-Blood - 1.3 mg/dL???Estimated GFR Creatinine - 63 ML/MIN/1.73 M2???Calcium - 9.7 mg/dL Benzodiazepine Urine Screen (03/23/2023) ???Benzodiazepine Screen, Urine - NONE DETECTED BUN (03/25/2023) ???BUN - 23 mg/dL Cannabinoid Urine Screen (03/23/2023) ???Cannabinoid Screen, Urine - POSITIVE CBC (03/30/2023) ???WBC - 5.6 k/mm3???RBC - 3.39 m/mm3???Hgb - 11.2 Gm/dL???Hct - 33.6 %???MCV - 99.1 femtoliters???MCH - 33.0 pg???MCHC - 33.3 g/dL???Platelet Count - 242 k/mm3???RDW-SD - 43.3 femtoliters???MPV - 9.5 femtoliters???Nucleated RBC (Automated) - 0.0 #/100 WBC'S???Abs. NRBC - 0.0 k/mm3 CBC w/ Differential (03/25/2023) ???WBC - 9.6 k/mm3???RBC - 3.37 m/mm3???Hgb - 11.4 Gm/dL???Hct - 32.7 %???MCV - 97.0 femtoliters???MCH - 33.8 pg???MCHC - 34.9 g/dL???Platelet Count - 184 k/mm3???RDW-SD - 41.6 femtoliters???MPV - 9.7 femtoliters???Nucleated RBC (Automated) - 0.0 #/100 WBC'S???Abs. NRBC - 0.0 k/mm3???Abs. Neut - 7.5 k/mm3???Abs. Lymph - 1.4 k/mm3???Abs. Dallam - 0.5 k/mm3???Abs. Eo - 0.2 k/mm3???Abs. Baso - 0.0 k/mm3???Neut % - 77.9 %???Lymph % - 14.6 %???[place] % - 4.8 %???Eos % - 1.9 %???Baso % - 0.4 %???Imm Gran- 0.4 %???Abs. Imm Gran - 0.0 k/mm3 Cocaine Urine Screen (03/23/2023) ???Cocaine Metabolite Screen, Urine - NONE DETECTED Comprehensive Metabolic Panel (03/26/2023) ???Sodium - 137 mmol/L???Potassium - 4.0 mmol/L???Chloride - 100 mmol/L???Bicarbonate Level - 26 mmol/L???Anion Gap - 11???Glucose Level - 185 mg/dL???BUN - 21 mg/dL???Creatinine-Blood - 0.9 mg/dL???Estimated GFR Creatinine - 100 ML/MIN/1.73 M2???Calcium - 9.0 mg/dL???Protein, Total - 5.9 Gm/dL???Al bumin - 3.9 Gm/dL???AG Ratio - 2.0???Alkaline Phosphatase - 152 units/L???AST (SGOT) - 118 units/L???ALT (SGPT) - 272 units/L???Bilirubin, Total - 0.4 mg/dL COVID-19 (Novel Coronavirus), Rapid PCR (03/23/2023) ???COVID-19 by RT-PCR - NEGATIVE Creatinine (03/25/2023) ???Creatinine-Blood - 0.9 mg/dL???Estimated GFR Creatinine - 95 ML/MIN/1.73 M2 Electrolytes (03/25/2023) ???Sodium - 140 mmol/L???Potassium - 3.4 mmol/L???Chloride - 101 mmol/L???Bicarbonate Level - 29 mmol/L???Anion Gap - 10 Glucose Level (03/25/2023) ???Glucose Level - 120 mg/dL HEPATIC FUNCTION PANEL (03/30/2023) ???Protein, Total - 5.8 Gm/dL???Albumin - 3.8 Gm/dL???Alkaline Phosphatase - 159 units/L???AST (SGOT) - 97 units/L???ALT (SGPT) - 239 units/L???Bilirubin, Total - 0.3 mg/dL???Bilirubin, Direct - 0.2 mg/dL???Bilirubin, Indirect - 0.1 mg/dL High??Sensitivity??Troponin T (03/22/2023) ???High Sensitivity Troponin (HSTnT) - 12 ng/L HOLD LAVENDER TUBE (03/26/2023) ???Hold Lavender Top - SPECIMEN DISCARDED AFTER 24 HOURS. LFT's (03/27/2023) ???Protein, Total - 6.0 Gm/dL???Albumin - 3.8 Gm/dL???Alkaline Phosphatase - 163 units/L???AST (SGOT) - 103 units/L???ALT (SGPT) - 251 units/L???Bilirubin, Total - 0.3 mg/dL???Bilirubin, Direct - 0.2mg/dL???Bilirubin, Indirect - 0.1 mg/dL Magnesium Level (03/29/2023) ???Magnesium - 1.8 mg/dL Opiate Screen Urine (03/23/2023) ???Opiate Screen, Urine - NONE DETECTED Phenobarbital Level (03/26/2023) ???Phenobarb Level - 24.1 mg/L TSH WITH REFLEX TO FT4 (03/22/2023) ???TSH - 1.96 uIU/mL Allergies (NKA means No Known Allergies) aspirin penicillins??(hives) traMADol??(racing thoughts) Problems Active Problems??(22) Anxiety disorder?? Anxious depression?? Asthma?? Benign hypertension?? Caregiver stress?? Claustrophobia?? Deep vein thrombosis (DVT)?? Dysphagia?? Dysthymic disorder?? Elevated cholesterol?? Elevated transaminase level?? GERD (gastroesophageal reflux disease)?? Hepatic steatosis?? Left rib fracture, sixth?? Low back pain?? Lower extremity pain?? Mild persistent asthma?? Odynophagia?? Anoxic-Ischemic Brain Injury?? Status post dilation of esophageal narrowing?? Tobacco abuse?? Vitamin D deficiency?? Education Materials Below is the list of Educational Leaflet Providered with your Discharge Instructions. Valuables and Belongings I fully understand and agree that [facility] accepts no responsibility for all my personal property including clothing, toilet articles, radios, jewelry, dentures, hearing aids, rings, money, or any other property that is in my possession or is brought to me after admission. I understand certain valuables may be placed in a hospital safe for a short period of time. I understand that the hospital is not liable for loss or damage due to accident, fire, or other natural occurrence while said property is in the safe. I accept full responsibility for any personal property that I keep with me, and will not hold the hospital responsible in case of loss or disappearance. I acknowledge that i have been encouraged to send valuables and belongings home. ?? Safe envelope number: [id number] Deposit/Withdrawal: Deposit Money/Amount: 2 Review of Valuable and Belonging List: With patient, With witness Disposition of Belongings: Valuables Locked Date for Pt to Sign Valuables/Belongings: 03/27/23 21:50:00 ?? Other Discharge Information ? Pulmonary Rehab Status?? Pulmonary Rehab Discharge Status?? Respiratory Rate: 18 br/min ? Common Emergency Awareness Tips IS IT A STROKE? Act FAST and Check for these signs: FACE Does the face look uneven? ARM Does one arm drift down? SPEECH Does their speech sound strange? TIME Call at any sign of stroke ?? Heart Attack Signs Chest discomfort: Most heart attacks involve discomfort in the center of the chest and lasts more than a few minutes, or goes away and comes back. It can feel like uncomfortable pressure, squeezing, fullness or pain. Discomfort in upper body: Symptoms can include pain or discomfort in one or both arms, back, neck, jaw or stomach. Shortness of breath: With or without discomfort. Other signs: Breaking out in a cold sweat, nausea, or lightheaded. Remember, MINUTES DO MATTER. If you experience any of these heart attack warning signs, call to get immediate medical attention! ?? Smoking can increase your chances of developing chronic health problems and can cause harmful effects to other family members in your house. If you smoke, you are strongly encouraged to quit. Please call [facility] at [phone] or [phone] ([phone]) or log in to [email or web address] [email or web address]org for referrals to smoking cessation programs. ?? 814 Suicide & Crisis Lifeline is available 06/04 if you or someone you know needs to find a reason to keep living. By calling 246 you'll be connected to a skilled, trained counselor at a crisis center in your area. INPATIENT DISCHARGE INSTRUCTIONS SIGNATURE PAGE DOMINGA MURRIETA Location:[facility] Registration Date and Time:03/24/2023 07:17 EDT Primary Care Physician: Not on Staff, PCP Attending Physician: Amanda Palomares MD, I DOMINGA MURRIETA, have received the above patient education materials/instructions and have verbalized understanding. If ambulance or transport services are being used I further acknowledge being given a choice of service. ?? If you need to contact me, please call me at this number: . Patient/Improvement Nurse Name: Patient/Improvement Nurse Signature: Relationship to Patient: Witness Name/Signature: Date: Patient Care team information Care Team Personnel Name: Zaida Hall RN Position: S RN Member Role: Primary Care Nurse Name: Yuly Vásquez RN Position: S RN Member Role: Primary Care Nurse Name: Tootie Tamayo RN Position: S RN Member Role: Primary Care Nurse Name: Princess Pantoja RN Position: S RN Member Role: Primary Care Nurse Name: Gopal DAS, Priya Position: S RN Member Role: Primary Care Nurse Name: Alyson Cage NP Position: [facility] PCO Associate Professional Member Role: Primary Care Nurse Address: Address: [address] [place] [address]- [place] Name: Gulshan Moulton RN Position: [facility] RN Member Role: Primary Care Nurse Name: Farnaz Adames Position: [facility] AMB Nurse Member Role: Lifetime Consulting Physician Name: Kristofer Segundo RN Position: [facility] RN Member Role: Primary Care Nurse Name: Not on Staff, PCP Position: [facility] Physician (General Medicine) Member Role: PCP Name: Sarah Jackson RN Position: [facility] RN Member Role: Primary Care Nurse Name: Rita Edmonds RN Position: [facility] AMB Nurse Member Role: Primary Care Nurse Name: Sumit Salas RN Position: [facility] RN Member Role: Primary Care Nurse Name: Rocio Renner RN Position: [facility] RN Supv Member Role: Primary Care Nurse Name: *[facility], ED Attending Position: [facility] ED Attendings Patient Name: *[facility], Inpt Attending Position: [facility] ED Medicine MD Name: Kwesi Avalos MD Position: [facility] Resident Member Role: ED Resident Address: Address: [address] [place] [id number]- [place] Name: Deisy Suresh Position: [facility] ED OA Charge Member Role: ED Associate Name: Sagar Lopes Position: [facility] ED TA [facility] Member Role: Patient Care Provider Name: Jen Muniz Position: [facility] ED RN W/OE and Tasks Member Role: Patient Care Provider Care Team Related Persons Name: STEVE COYNE Address: [place] [address] Name: ROMERO SOLER Address: home [address] [place] [id number]
--- OUTSIDE RECORDS SUMMARY | 2023-04-09 20:19 | XMS_ITS | Continuity of Care Document ---
Author Name Unknown Organization [facility] Address [address] [place] [address]- Care Team Providers Care Wire Coater Name Role Phone Ga Adkins MD Primary Care Physician Encounter [facility] [place] Date(s): 04/08/21 - 05/29/21 [facility] [address] [place] [address]- Attending Physician: Dominga Guajardo MD Admitting Physician: Dominga Guajardo MD Referring Physician: Ga Adkins MD Allergies, Adverse Reactions, [...] Not Given Patient Refuses 1Result Comment: [09/21/2018] [facility][NOTE 3] [id number] 2Result Comment: [06/10/2017] [facility][NOTE 3]: [id number] 3Result Comment: [09/09/2017] [facility]# [id number] 4Result Comment: [09/09/2017] [facility]# [id number] Medications ALPRAZolam 0.5 mg oral tablet 0.5 mg, 1, tablet, By Mouth, 3 times a day, PRN, Refills 0, Maintenance, for anxiety, 08/05/17 11:11:03 Start Date: 08/05/17 Status: Ordered amLODIPine 10 mg oral tablet 10 mg, 1, tablet, By Mouth, Daily, # 90 tablet, Refills 3, Tot. Refills 3, Maintenance, 02/06/21 15:19:00 EDT, Route to Pharmacy Electronically, [facility], 185.42, cm, 10/15/20 8:52:00 EST, Height Start Date: 02/06/21 Status: Ordered Compression Stockings See Instructions, # 1 each, Maintenance, surgical, thigh high length 20-30 mm Hg, 04/20/20 9:37:00 EDT, Supply Start Date: 04/20/20 Status: Ordered D3-50 oral capsule 1 capsule, By Mouth, Every week, # 12 capsule, 0 Refills, Maintenance, 03/19/21 12:03:00 EDT, [facility], 185.42, cm, 03/08/21 10:27:00 EDT, Height Start Date: 03/19/21 Status: Ordered lisinopril 20 mg oral tablet 20 mg, 1, tablet, By Mouth, Daily, # 90 tablet, Refills 3, Tot. Refills 3, Maintenance, 02/06/21 15:19:00 EDT, Route to Pharmacy Electronically, [facility], 185.42, cm, 10/15/20 8:52:00 EST, Height Start Date: 02/06/21 Status: Ordered metoprolol 50 mg oral tablet, extended release 50 mg, 1, tablet, By Mouth, Daily, # 90 tablet, Refills 3, Tot. Refills 3, Maintenance, 02/06/21 15:18:00 EDT, Route to Pharmacy Electronically, [facility], replaces IR metoprolol, 185.42, cm, 10/15/20 8:52:00 EST, Height Start Date: 02/06/21 Status: Ordered pantoprazole 40 mg oral delayed release tablet 1 tablet = 40 mg, By Mouth, Daily, PRN Dyspepsia, # 90 tablet, 0 Refills, Maintenance, 03/01/21 8:55:00 EDT, 185.42, cm, 10/15/20 8:52:00 EST, Height Start Date: 03/01/21 Status: Ordered PEG-3350 with Electrolytes (Eqv-GoLYTELY) oral [...] 03/01/21 8:55:00 EDT, Route to Pharmacy Electronically, [id number], [facility], 185.42, cm, 10/15/20 8:52:00 EST, Height Start Date: 03/01/21 Status: Ordered Proventil HFA 90 mcg/inh inhalation aerosol with adapter 2, puffs, Inhalation, 4 times a day, PRN, # 25 Gm, Refills 2, Tot. Refills 2, Maintenance, 204:54:00 EST, Aerosol, Route to Pharmacy Electronically, [id number], [facility], 185.42, cm, [...] Vitamin D deficiency(Confirmed) Active 1While living in [place] Social History Social History Type Response Smoking Status Current every day haily rocha; Type: Cigarettes; Tobacco use times per day: 1 PPD now down to 1 pack/week; Number of years: 36; Total pack years: 36; Started at age: 15; entered on: 03/02/17 Sex
--- OUTSIDE RECORDS SUMMARY | 2023-04-09 20:19 | XMS_ITS | Continuity of Care Document ---
Author Name Unknown Organization [facility] Ata Andrzej lt Address [address] [place] [address]- Care Team Providers Care Associate Editor Name Role Phone Lucille KEY, Ga Pollard Primary Care Physician [phone] [place] [facility] [place] 03/12/20 - 03/19/20 [facility] [address] [place] [address]- [facility] Encounter Diagnosis Cough(Discharge Diagnosis) - 03/12/20 Attending Physician: Tasha SCIENTIFIC TECHNICAL WRITER, Deandra Allergies, Adverse Reactions, Alerts Substance Reaction Severity [...] Given Patient Refuses 1Result Comment: [09/21/2018] [facility] [id number] 2Result Comment: [06/10/2017] [facility]: [id number] 3Result Comment: [09/09/2017] [facility]# [id number] 4Result Comment: [09/09/2017] [facility]# [id number] Medications ALPRAZolam 0.5 mg oral tablet 0.5 mg, 1, tablet, By Mouth, 3 times a day, PRN, Refills 0, Maintenance, for anxiety, 08/05/17 11:11:03 Start Date: 08/05/17 Status: Ordered amLODIPine 10 mg oral tablet 10 mg, 1, tablet, By Mouth, Daily, # 90 tablet, Refills 3, Tot. Refills 3, Maintenance, 06/28/19 8:28:20 EDT, Route to Pharmacy Electronically, [id number], [facility] Start Date: [...] 06/28/19 8:28:42 EDT, Route to Pharmacy Electronically, [id number], [facility] Start Date: 06/28/19 Status: Ordered metoprolol 50 mg oral tablet, extended release 50 mg, 1, tablet, By Mouth, Daily, # 90 tablet, Refills 3, Tot. Refills 3, Maintenance, 06/28/19 8:29:10 EDT, Route to Pharmacy Electronically, [id number], [facility], replaces IR metoprolol Start Date: [...] 03/12/20 9:30:00 EDT, Route to Pharmacy Electronically, [id number], [facility], 185.42, cm, 03/12/20 8:37:00 EDT, [...] Vitamin D deficiency(Confirmed) Active 1While living in [place] Diagnosis Diagnosis Type Effective Dates Health Status Clini meseret Service Informant Cough Discharge Diagnosis 03/12/20 Vital Signs Most recent to oldest [Reference Range]: 1 Height 185.42 cm (03/12/20 8:37 AM) Social History Social History Type Response Smoking Status Current every day sm oker; Type: Cigarettes; Tobacco use times per day: 1 PPD now down to 1 pack/week; Number of years: 36; Total pack years: 36; Started at age: 15; entered on: 03/02/17 Sex
--- OUTSIDE RECORDS SUMMARY | 2023-04-09 20:19 | XMS_ITS | Continuity of Care Document ---
Author Name Unknown Organization [facility] ter Address [address] [place] [address]- Care Team Providers Care Jar Capper Name Role Phone Lucille KEY, Ga Pollard Primary Care Physician Encounter [facility] Date(s): 07/11/22 - 07/15/[address] [address] Encounter Diagnosis Altered sensation of foot(Final) - 07/10/22 Visual hallucinations(Final) - 07/10/22 Megaloblastic anemia(Final) - 07/10/22 H/O ETOH abuse(Final) - 07/10/22 Clonus(Final) - 07/11/22 Auditory hallucination(Final) - 07/11/22 Discharge Disposition: A-D/C Home Attending Physician: Elaine Abraham MD Admitting Physician: Dinh Clarke MD Referring Physician: Not on Staff, Referring [...] Not Given Patient Refuses 1Result Comment: [09/21/2018] [facility] [id number] 2Result Comment: [06/10/2017] [facility]: [id number] 3Result Comment: [09/09/2017] [facility]# [id number] 4Result Comment: [09/09/2017] [facility]# [id number] Medications ALPRAZolam 0.5 mg oral tablet 0.5 mg, 1, tablet, By Mouth, 3 times a day, PRN, Refills 0, Maintenance, for anxiety, 08/05/17 11:11:03 Start Date: 08/05/17 Status: Ordered amLODIPine 10 mg oral tablet 10 mg, Tablet, By Mouth, 07/15/22 9:00:00 EDT Start Date: 07/15/22 Stop Date: 07/15/22 Status: Completed amLODIPine 10 mg oral tablet 10 mg, 1, tablet, By Mouth, Daily, APPOINTMENT NEEDED FOR ADDITIONAL REFILLS, # 21 tablet, Refills 0, Tot. Refills 0, Maintenance, 07/15/22 9:38:00 EDT, Route to Pharmacy Electronically, [facility], 186, cm, 07/15/22 3:47:00 EDT, Height,... Start Date: 07/15/22 Stop Date: 08/05/22 Status: Ordered Compression Stockings See Instructions, # 1 each, Maintenance, surgical, thigh high length 20-30 mm Hg, 04/20/20 9:37:00 EDT, Supply Start Date: 04/20/20 Status: Ordered D3-50 oral capsule 1 capsule, By Mouth, Every week, # 12 capsule, 0 Refills, Maintenance, 03/19/21 12:03:00 EDT, [facility], 185.42, cm, 03/08/21 10:27:00 EDT, Height Start Date: 03/19/21 Status: Ordered folic acid 1 mg oral tablet 1 mg, 1, tablet, By Mouth, Daily, # 30 tablet, Refills 0, Tot. Refills 0, Maintenance, 07/15/22 9:39:00 EDT, Route to Pharmacy Electronically, [facility], Partial fill upon patient request if the prescription is for a schedule II opioid... Start Date: 07/15/22 Status: Ordered gabapentin 300 mg oral capsule 300 mg, Capsule, By Mouth, 07/15/22 9:00:00 EDT Start Date: 07/15/22 Stop Date: 07/15/22 Status: Completed gabapentin 300 mg oral capsule 300 mg, 1, capsule, By Mouth, 3 times a day, # 90 capsule, Refills 0, Tot. Refills 0, Maintenance, 07/15/22 9:39:00 EDT, Route to Pharmacy Electronically, [facility], Partial fill upon patient request if the prescription is for a schedul... Start Date: 07/15/22 Status: Ordered metoprolol 50 mg oral tablet, extended release 50 mg, XL Tablet, By Mouth, 07/15/22 9:00:00 EDT Start Date: 07/15/22 Stop Date: 07/15/22 Status: Completed metoprolol 50 mg oral tablet, extended release 50 mg, 1, tablet, By Mouth, Daily, APPOINTMENT NEEDED FOR ADDITIONAL REFILLS, # 21 tablet, Refills 0, Tot. Refills 0, Maintenance, 07/15/22 9:38:00 EDT, Route to Pharmacy Electronically, [facility], replaces IR metoprolol, 186, cm, 07/15... Start Date: 07/15/22 Stop Date: 08/05/22 Status: Ordered pantoprazole 40 mg oral delayed release tablet See Instructions, TAKE ONE TABLET BY MOUTH EVERY DAY NEEDED FOR DYSPEPSIA, # 90 tablet, 3 Refills, 07/02/22 8:34:00 EDT, 185.42, cm, 05/07/21 10:02:00 EDT, Height Start Date: 07/02/22 Status: Ordered ProAir HFA 90 mcg/inh inhalation aerosol with adapter 2, puffs, Inhalation, Every 6 hours, PRN, # 1 each, Refills 5, Tot. Refills 5, Maintenance, 03/01/21 8:55:00 EDT, Route to Pharmacy Electronically, [id number], [facility], 185.42, cm, 10/15/20 8:52:00 EST, Height Start Date: 03/01/21 Status: Ordered Proventil HFA 90 mcg/inh inhalation aerosol with adapter 2, puffs, Inhalation, 4 times a day, PRN, # 25 Gm, Refills 2, Tot. Refills 2, Maintenance, 07/15/2213:15:00 EDT, Aerosol, Route to Pharmacy Electronically, [id number], [facility], 186, cm, 07/15/22 3:47:00 EDT,... Start Date: 07/15/22 Status: Ordered thiamine 100 mg oral tablet 100 mg, 1, tablet, By Mouth, Daily, for 14 days, # 14 tablet, Refills 0, Tot. Refills 0, Acute 07/29/22 9:39:00 EST, 07/15/22 9:39:00 EDT, Route to Pharmacy Electronically, [facility], Partial fill upon patient request if the prescriptio... Start Date: 07/15/22 Stop Date: 07/29/22 Status: Ordered Problem List Condition Confirmation Course [...] Confirmed Active 1While living in [place] Vital Signs Most recent to oldest [Reference Range]: 1 2 3 Height 186 cm (07/15/22 3:47 AM) 186 cm (07/15/22 12:24 AM) 186 cm (07/14/22 9:13 PM) Weight 66.0 kg (07/10/22 5:36 PM) 66.0 kg (07/10/22 8:38 AM) Oxygen Saturation [94-100 %] 98 % (07/15/22 12:00 PM) 93 % *L* (07/15/22 7:00 AM) 97 % (07/15/22 3:47 AM) Pulse Rate [55-90 bpm] 82 bpm (07/15/22 12:00 PM) 87 bpm (07/15/22 9:42 AM) 81 bpm (07/15/22 7:00 AM) Body Mass Index [18.5-24.99 kg/m2] 19.08 kg/m2 (07/10/22 5:36 PM) Blood Pressure [90-138/55-84 mm Hg] 134/98mm Hg (07/15/22 12:00 PM) 120/83mm Hg (07/15/22 9:42 AM) 120/83mm Hg (07/15/22 9:42 AM) Respiratory Rate [16-30 br/min] 18 br/min (07/15/22 12:00 PM) 18 br/min (07/15/22 10:42 AM) 17 br/min (07/15/22 9:42 AM) Temperature [96.8-100.4 DegF] 98.6 DegF (07/15/22 12:00 PM) 97.9 DegF (07/15/22 7:00 AM) 98.1 DegF (07/15/22 3:47 AM) Mode of Delivery (Oxygen) Room air (07/15/22 12:00 PM) Room air (07/15/22 7:00 AM) Room air (07/15/22 3:47 AM) Blood pressure sites Arm, right (07/15/22 12:00 PM) Arm, right (07/15/22 7:00 AM) Arm, left (07/15/22 3:47 AM) Temperature Route Oral (07/15/22 12:00 PM) Oral (07/15/22 7:00 AM) Oral (07/15/22 3:47 AM) Dry Weight 66.0 kg (07/10/22 5:36 PM) 66.0 kg (07/10/22 8:38 AM) Weight Obtained Via Standing scale (07/10/22 8:38 AM) Dry Weight Obtained Via Standing scale (07/10/22 8:38 AM) Social History Social History Type Response Smoking Status Current every day sm oker; Type: Cigarettes; Tobacco use times per day: 1 PPD now down to 1 pack/week; Number of years: 36; Total pack years: 36; Started at age: 15; entered on: 03/02/17 Sex Patient Care team information Personnel Name: Lucille KEY, Ga Pollard Address: Address: [address] [address]
--- OUTSIDE RECORDS SUMMARY | 2023-04-09 20:19 | XMS_ITS | Continuity of Care Document ---
Author Name Unknown Organization [facility] Foss Andrzej lt Address [address] [place] [address]- Care Team Providers Care Can Reconditioner Name Role Phone Not on Staff, PCP Primary Care Physician Unavail able Encounter [facility] Date(s): 10/20/22 - 11/19/22 [facility] [place] [address] [place] [address]- Allergies, Adverse Reactions, Alerts Substance Reaction Severity [...] Not Given Patient Refuses 1Result Comment: [09/21/2018] [facility] [id number] 2Result Comment: [06/10/2017] [facility]: [id number] 3Result Comment: [09/09/2017] [facility]# [id number] 4Result Comment: [09/09/2017] [facility]# [id number] Medications amLODIPine 10 mg oral tablet 10 [...] EST, Route to Pharmacy Electronically, [facility], replaces IR metoprolol, 186, cm, [...] D deficiency Confirmed Active 1While living in [place] Social History Social History Type Response Smoking Status Current every day sm oker; Type: Cigarettes; Tobacco use times per day: 1 PPD now down to 1 pack/week; Number of years: 36; Total pack years: 36; Started at age: 15; entered on: 03/02/17 Sex Patient Care team information Care Team Personnel Name: Zaida Hall RN Position: [facility] RN Member Role: Primary Care Nurse Name: Yuly Vásquez RN Position: [facility] RN Member Role: Primary Care Nurse Name: Alyson Cage NP Position: [facility] PCO Associate Professional Member Role: Primary Care Nurse Address: Address: [address] [place] [id number] Name: Kenney DAS, Gulshan Novak Position: [facility] RN Member Role: Primary Care Nurse Name: Farnaz Adames Position: [facility] PCO RN Member Role: Lifetime Consulting Physician Name: Not on Staff, PCP Position: [facility] Physician (General Medicine) Member Role: PCP Name: Sarah Jackson RN Position: [facility] RN Member Role: Primary Care Nurse Name: Rita Edmonds RN Position: [facility] AMB Nurse Member Role: Primary Care Nurse Name: Sumit Salas RN Position: [facility] RN Member Role: Primary Care Nurse Care Team Related Persons Name: TANIA COYNE Address: [place] [address] Name: ROMERO SOLER Address: home [address] [place] [id number]
--- OUTSIDE RECORDS SUMMARY | 2023-04-09 20:19 | XMS_ITS | Continuity of Care Document ---
Author Name Unknown Organization [facility] Andrzej lt Address [address] [place] [address]- Care Team Providers Care Optometry Teacher Name Role Phone Ga Adkins MD Primary Care Physician [phone] Encounter [facility] Date(s): 05/18/20 - 05/25/20 [facility] Adult [address] [place] [address]- [facility] Attending Physician: Ga Adkins MD Allergies, Adverse [...] 1Result Comment: [09/21/2018] [facility] [id number] 2Result Comment: [06/10/2017] [facility]: [id number] 3Result Comment: [09/09/2017] [facility]# [id number] 4Result Comment: [09/09/2017] [facility]# [id number] Medications ALPRAZolam 0.5 mg oral tablet 0.5 mg, 1, tablet, By Mouth, 3 times a day, PRN, Refills 0, Maintenance, for anxiety, 08/05/17 11:11:03 Start Date: 08/05/17 Status: Ordered amLODIPine 10 mg oral tablet 10 mg, 1, tablet, By Mouth, Daily, # 90 tablet, Refills 3, Tot. Refills 3, Maintenance, 06/28/19 8:28:20 EDT, Route to Pharmacy Electronically, [id number], [facility] Start Date: 06/28/19 Status: Ordered apixaban 5 mg oral tablet 1 tablet = 5 mg, By Mouth, 2 times a day, # 60 tablet, 1 Refills, Maintenance, 05/15/20 13:00:00 EDT, Tablet, [facility], 185.42, cm, 04/20/20 9:09:00 EDT, Height Start Date: 05/15/20 Status: Ordered cholecalciferol 50,000 intl units oral capsule 1 capsule = 50,000 International_Units, By Mouth, Every week, # 12 capsule, 0 Refills, Maintenance,04/17/20 16:24:00 EDT, Capsule, [facility], 185.42, cm, 03/12/20 8:37:00 EDT, [...] 06/28/19 8:28:42 EDT, Route to Pharmacy Electronically, [id number], [facility] Start Date: 06/28/19 Status: Ordered metoprolol 50 mg oral tablet, extended release 50 mg, 1, tablet, By Mouth, Daily, # 90 tablet, Refills 3, Tot. Refills 3, Maintenance, 06/28/19 8:29:10 EDT, Route to Pharmacy Electronically, [id number], [facility], replaces IR metoprolol Start Date: [...] 03/12/20 9:30:00 EDT, Route to Pharmacy Electronically, [id number], [facility], 185.42, cm, 03/12/20 8:37:00 EDT, Height Start Date: 03/12/20 Status: Ordered Trelegy Ellipta inhalation powder 1 puffs, Inhalation, Daily, at the same time every day, # 1 each, 2 Refills, Maintenance, 05/25/20 7:08:00 EDT, Powder, [facility], 185.42, cm, 05/25/20 6:57:00 EDT, [...] Vitamin D deficiency(Confirmed) Active 1While living in [place] Vital Signs Most recent to oldest [Reference Range]: 1 Height 185.42 cm (05/18/20 9:27 AM) Social History Social History Type Response Smoking Status Current every day haily rocha; Type: Cigarettes; Tobacco use times per day: 1 PPD now down to 1 pack/week; Number of years: 36; Total pack years: 36; Started at age: 15; entered on: 03/02/17 Sex
--- OUTSIDE RECORDS SUMMARY | 2023-04-09 20:19 | XMS_ITS | Continuity of Care Document ---
Author Name Unknown Organization [facility] Andrzej lt Address [address] [place] [address]- Care Team Providers Care Gold Buyer Name Role Phone Lucille KEY, aG Pollard Primary Care Physician Encounter [facility] Date(s): 03/19/20 - 04/18/20 [facility] Adult [address] [place] [address]- [facility] Allergies, Adverse Reactions, Alerts Substance Reaction Severity [...] Not Given Patient Refuses 1Result Comment: [09/21/2018] [facility] [id number] 2Result Comment: [06/10/2017] [facility]: [id number] 3Result Comment: [09/09/2017] [facility]# [id number] 4Result Comment: [09/09/2017] [facility]# [id number] Medications ALPRAZolam 0.5 mg oral tablet 0.5 mg, 1, tablet, By Mouth, 3 times a day, PRN, Refills 0, Maintenance, for anxiety, 08/05/17 11:11:03 Start Date: 08/05/17 Status: Ordered amLODIPine 10 mg oral tablet 10 mg, 1, tablet, By Mouth, Daily, # 90 tablet, Refills 3, Tot. Refills 3, Maintenance, 06/28/19 8:28:20 EDT, Route to Pharmacy Electronically, [id number], [facility] Start Date: [...] 06/28/19 8:28:42 EDT, Route to Pharmacy Electronically, [id number], [facility] Start Date: 06/28/19 Status: Ordered metoprolol 50 mg oral tablet, extended release 50 mg, 1, tablet, By Mouth, Daily, # 90 tablet, Refills 3, Tot. Refills 3, Maintenance, 06/28/19 8:29:10 EDT, Route to Pharmacy Electronically, [id number], [facility], replaces IR metoprolol Start Date: [...] 03/12/20 9:30:00 EDT, Route to Pharmacy Electronically, [id number], [facility], 185.42, cm, 03/12/20 8:37:00 EDT, [...] Vitamin D deficiency(Confirmed) Active 1While living in [place] Social History Social History Type Response Smoking Status Current every day haily rocha; Type: Cigarettes; Tobacco use times per day: 1 PPD now down to 1 pack/week; Number of years: 36; Total pack years: 36; Started at age: 15; entered on: 03/02/17 Sex
--- OUTSIDE RECORDS SUMMARY | 2023-04-09 20:19 | XMS_ITS | Continuity of Care Document ---
Author Name Unknown Organization [facility] ter Address [address] [place] [address]- Care Team Providers Care Embryology Professor Name Role Phone Ga Adkins MD Primary Care Physician [facility]counter [facility] Date(s): 10/21/19 - 10/21/[address] [address]- [facility] Attending Physician: Ga Adkins MD Allergies, [...] Not Given Patient Refuses 1Result Comment: [09/21/2018] [facility] [id number] 2Result Comment: [06/10/2017] [facility]: [id number] 3Result Comment: [09/09/2017] [facility]# [id number] 4Result Comment: [09/09/2017] [facility]# [id number] Medications ALPRAZolam 0.5 mg oral tablet 0.5 mg, 1, tablet, By Mouth, 3 times a day, PRN, Refills 0, Maintenance, for anxiety, 08/05/17 11:11:03 Start Date: 08/05/17 Status: Ordered amLODIPine 10 mg oral tablet 10 mg, 1, tablet, By Mouth, Daily, # 90 tablet, Refills 3, Tot. Refills 3, Maintenance, 06/28/19 8:28:20 EDT, Route to Pharmacy Electronically, [id number], [facility] Start Date: [...] 06/28/19 8:28:42 EDT, Route to Pharmacy Electronically, [id number], [facility] Start Date: 06/28/19 Status: Ordered metoprolol 50 mg oral tablet, extended release 50 mg, 1, tablet, By Mouth, Daily, # 90 tablet, Refills 3, Tot. Refills 3, Maintenance, 06/28/19 8:29:10 EDT, Route to Pharmacy Electronically, [id number], [facility], replaces IR metoprolol Start Date: 06/28/19 Status: Ordered ProAir HFA 90 mcg/inh inhalation aerosol with adapter 2, puffs, Inhalation, Every 6 hours, PRN, # 1 each, Refills 5, Tot. Refills 5, Maintenance, 02/23/19 13:14:12 EDT, Route to Pharmacy Electronically, [id number], [facility] Start Date: 02/23/19 Status: Ordered [...] 06/28/19 8:27:40 EDT, Route to Pharmacy Electronically, [id number], [facility] Start Date: 06/28/19 Status: Ordered [...] Vitamin D deficiency(Confirmed) Active 1While living in [place] Social History Social History Type Response Smoking Status Current every day sm oker; Type: Cigarettes; Tobacco use times per day: 1 PPD now down to 1 pack/week; Number of years: 36; Total pack years: 36; Started at age: 15; entered on: 03/02/17 Sex
--- OUTSIDE RECORDS SUMMARY | 2023-04-09 20:19 | XMS_ITS | Continuity of Care Document ---
Author Name Unknown Organization [facility] Andrzej lt Address [address] [place] [address]- Care Team Providers Care Community Product Specialist Name Role Phone Ga Adkins MD Primary Care Physician Encounter [facility] Date(s): 03/08/21 - 03/15/21 [facility] Adult [address] [place] [address]- Attending Physician: Ga Adkins MD Allergies, Adverse [...] 1Result Comment: [09/21/2018] [facility] [id number] 2Result Comment: [06/10/2017] [facility]: [id number] 3Result Comment: [09/09/2017] [facility]# [id number] 4Result Comment: [09/09/2017] [facility]# [id number] Medications ALPRAZolam 0.5 mg oral tablet 0.5 mg, 1, tablet, By Mouth, 3 times a day, PRN, Refills 0, Maintenance, for anxiety, 08/05/17 11:11:03 Start Date: 08/05/17 Status: Ordered amLODIPine 10 mg oral tablet 10 mg, 1, tablet, By Mouth, Daily, # 90 tablet, Refills 3, Tot. Refills 3, Maintenance, 02/06/21 15:19:00 EDT, Route to Pharmacy Electronically, [facility], 185.42, cm, 10/15/20 8:52:00 EST, Height Start Date: 02/06/21 Status: Ordered cholecalciferol 50,000 intl units oral capsule 1 capsule = 50,000 International_Units, By Mouth, Every week, # 12 capsule, 0 Refills, Maintenance,04/17/20 16:24:00 EDT, Capsule, [facility], 185.42, cm, 03/12/20 8:37:00 [...] 02/06/21 15:19:00 EDT, Route to Pharmacy Electronically, [facility], 185.42, cm, 10/15/20 8:52:00 EST, Height Start Date: 02/06/21 Status: Ordered metoprolol 50 mg oral tablet, extended release 50 mg, 1, tablet, By Mouth, Daily, # 90 tablet, Refills 3, Tot. Refills 3, Maintenance, 02/06/21 15:18:00 EDT, Route to Pharmacy Electronically, [facility], replaces IR metoprolol, 185.42, cm, 10/15/20 8:52:00 EST, Height Start Date: 02/06/21 Status: Ordered pantoprazole 40 mg oral delayed release tablet 1 tablet = 40 mg, By Mouth, Daily, PRN Dyspepsia, # 90 tablet, 0 Refills, Maintenance, 03/01/21 8:55:00 EDT, 185.42, cm, 10/15/20 8:52:00 EST, Height Start Date: 03/01/21 Status: Ordered ProAir HFA 90 mcg/inh inhalation aerosol with adapter 2, puffs, Inhalation, Every 6 hours, PRN, # 1 each, Refills 5, Tot. Refills 5, Maintenance, 03/01/21 8:55:00 EDT, Route to Pharmacy Electronically, [id number], [facility], 185.42, cm, 10/15/20 8:52:00 EST, Height Start Date: 03/01/21 Status: Ordered Proventil HFA 90 mcg/inh inhalation aerosol with adapter 2, puffs, Inhalation, 4 times a day, PRN, # 25 Gm, Refills 2, Tot. Refills 2, Maintenance, 204:54:00 EST, Aerosol, Route to Pharmacy Electronically, [id number], [facility], 185.42, cm, [...] D deficiency(Confirmed) Active 1While living in [place] Vital Signs Most recent to oldest [Reference Range]: 1 Height 185.42 cm (03/08/21 10:27 AM) Weight 75 kg (03/08/21 10:27 AM) Body Mass Index [18.5-24.99] 21.81 (03/08/21 10:27 AM) Social History Social History Type Response Smoking Status Current every day haily rocha; Type: Cigarettes; Tobacco use times per day: 1 PPD now down to 1 pack/week; Number of years: 36; Total pack years: 36; Started at age: 15; entered on: 03/02/17 Sex
--- OUTSIDE RECORDS SUMMARY | 2023-04-09 20:19 | XMS_ITS | Continuity of Care Document ---
Author Name Unknown Organization [facility] Andrzej lt Address [address] [place] [address]- Care Team Providers Care Commercial Light Fixture Assembler Name Role Phone Lucille KEY, Ga Pollard Primary Care Physician [facility]counter [facility] Date(s): 11/13/21 - 12/13/21 [facility] Adult [address] [place] [address]- Allergies, Adverse Reactions, Alerts Substance Reaction Severity [...] Not Given Patient Refuses 1Result Comment: [09/21/2018] [facility] [id number] 2Result Comment: [06/10/2017] [facility]: [id number] 3Result Comment: [09/09/2017] [facility]# [id number] 4Result Comment: [09/09/2017] [facility]# [id number] Medications ALPRAZolam 0.5 mg oral tablet 0.5 mg, 1, tablet, By Mouth, 3 times a day, PRN, Refills 0, Maintenance, for anxiety, 08/05/17 11:11:03 Start Date: 08/05/17 Status: Ordered amLODIPine 10 mg oral tablet 10 mg, 1, tablet, By Mouth, Daily, # 90 tablet, Refills 3, Tot. Refills 3, Maintenance, 02/06/21 15:19:00 EDT, Route to Pharmacy Electronically, [facility], 185.42, cm, 10/15/20 8:52:00 EST, Height Start Date: 02/06/21 Status: Ordered Compression Stockings See Instructions, # 1 each, Maintenance, surgical, thigh high length 20-30 mm Hg, 04/20/20 9:37:00 EDT, Supply Start Date: 04/20/20 Status: Ordered D3-50 oral capsule 1 capsule, By Mouth, Every week, # 12 capsule, 0 Refills, Maintenance, 03/19/21 12:03:00 EDT, [email or web address], 185.42, cm, 03/08/21 10:27:00 EDT, Height Start Date: 03/19/21 Status: Ordered lisinopril 20 mg oral tablet 20 mg, 1, tablet, By Mouth, Daily, # 90 tablet, Refills 3, Tot. Refills 3, Maintenance, 02/06/21 15:19:00 EDT, Route to Pharmacy Electronically, [facility], 185.42, cm, 10/15/20 8:52:00 EST, Height Start Date: 02/06/21 Status: Ordered metoprolol 50 mg oral tablet, extended release 50 mg, 1, tablet, By Mouth, Daily, # 90 tablet, Refills 3, Tot. Refills 3, Maintenance, 02/06/21 15:18:00 EDT, Route to Pharmacy Electronically, [facility], replaces IR metoprolol, 185.42, cm, [...] 03/01/21 8:55:00 EDT, Route to Pharmacy Electronically, [id number], [facility], 185.42, cm, 10/15/20 8:52:00 EST, Height Start Date: 03/01/21 Status: Ordered Proventil HFA 90 mcg/inh inhalation aerosol with adapter 2, puffs, Inhalation, 4 times a day, PRN, # 25 Gm, Refills 2, Tot. Refills 2, Maintenance, 204:54:00 EST, Aerosol, Route to Pharmacy Electronically, [id number], [facility], 185.42, cm, [...] D deficiency(Confirmed) Active 1While living in [place] Social History Social History Type Response Smoking Status Current every day haily rocha; Type: Cigarettes; Tobacco use times per day: 1 PPD now down to 1 pack/week; Number of years: 36; Total pack years: 36; Started at age: 15; entered on: 03/02/17 Sex
--- OUTSIDE RECORDS SUMMARY | 2023-04-09 20:19 | XMS_ITS | Continuity of Care Document ---
Author Name Unknown Organization [facility] Andrzej lt Address [address] [place] [address]- Care Team Providers Care Greenskeeper Laborer Name Role Phone Ga Adkins MD Primary Care Physician Encounter [facility] [facility] Date(s): 10/21/19 - 10/28/19 [facility] Adult [address] [place] [address]- [facility] Encounter Diagnosis Back pain(Discharge Diagnosis) - 10/21/19 Right-sided abdominal pain of unknown cause(Discharge Diagnosis) - 10/21/19 Attending Physician: Ga Adkins MD Allergies, Adverse [...] Given Patient Refuses 1Result Comment: [09/21/2018] [facility] [id number] 2Result Comment: [06/10/2017] [facility]: [id number] 3Result Comment: [09/09/2017] [facility]# [id number] 4Result Comment: [09/09/2017] [facility]# [id number] Medications ALPRAZolam 0.5 mg oral tablet 0.5 mg, 1, tablet, By Mouth, 3 times a day, PRN, Refills 0, Maintenance, for anxiety, 08/05/17 11:11:03 Start Date: 08/05/17 Status: Ordered amLODIPine 10 mg oral tablet 10 mg, 1, tablet, By Mouth, Daily, # 90 tablet, Refills 3, Tot. Refills 3, Maintenance, 06/28/19 8:28:20 EDT, Route to Pharmacy Electronically, [id number], [facility] Start Date: [...] 06/28/19 8:28:42 EDT, Route to Pharmacy Electronically, [id number], [facility] Start Date: 06/28/19 Status: Ordered metoprolol 50 mg oral tablet, extended release 50 mg, 1, tablet, By Mouth, Daily, # 90 tablet, Refills 3, Tot. Refills 3, Maintenance, 06/28/19 8:29:10 EDT, Route to Pharmacy Electronically, [id number], [email or web address], replaces IR metoprolol Start Date: 06/28/19 Status: Ordered ProAir HFA 90 mcg/inh inhalation aerosol with adapter 2, puffs, Inhalation, Every 6 hours, PRN, # 1 each, Refills 5, Tot. Refills 5, Maintenance, 02/23/19 13:14:12 EDT, Route to Pharmacy Electronically, [id number], [email or web address] Start Date: 02/23/19 Status: Ordered [...] 06/28/19 8:27:40 EDT, Route to Pharmacy Electronically, [id number], [email or web address] Start Date: 06/28/19 Status: Ordered [...] D deficiency(Confirmed) Active 1While living in [place] Diagnosis Diagnosis Type Effective Dates [facility] Informant Back pain Discharge Diagnosis 10/21/19 Right-sided abdominal pain of unknown cause Discharge Diagnosis 10/21/19 Vital Signs Most recent to oldest [Reference Range]: 1 Height 185.42 cm (10/21/19 8:47 AM) Weight 68.0 kg (10/21/19 8:47 AM) Oxygen Saturation [94-100 %] 98 % (10/21/19 8:47 AM) Pulse Rate [55-90 bpm] 89 bpm (10/21/19 8:47 AM) Body Mass Index [18.5-24.99] 19.78 (10/21/19 8:47 AM) Blood Pressure [90-138/55-84 mm Hg] 110/ 70mm Hg (10/21/19 8:47 AM) Temperature [96.8-100.4 DegF] 97.5 DegF (10/21/19 8:47 AM) Mode of Delivery (Oxygen) Room air (10/21/19 8:47 AM) Blood pressure sites Arm, right (10/21/19 8:47 AM) Temperature Route Oral (10/21/19 8:47 AM) Weight Obtained Via Standing scale (10/21/19 8:47 AM) Social History Social History Type Response Smoking Status Current every day haily rocha; Type: Cigarettes; Tobacco use times per day: 1 PPD now down to 1 pack/week; Number of years: 36; Total pack years: 36; Started at age: 15; entered on: 03/02/17 Sex
--- OUTSIDE RECORDS SUMMARY | 2023-04-09 20:19 | XMS_ITS | Continuity of Care Document ---
Author Name Unknown Organization [facility] Andrzej lt Address [address] [place] [address]- Care Team Providers Care Muleser Name Role Phone Lucille KEY, Ga Pollard Primary Care Physician [phone] [facility] Date[facility]s): 12/07[facility]19 - 12/17/19 [facility] Adult [address] [place] [address]- [facility] Attending Physician: AdmChloe ag Admitting Physician: AdmtrChloe [...] Comment: [09/21/2018] [facility] [id number] 2Result Comment: [06/10/2017] [facility]: [id number] 3Result Comment: [09/09/2017] [facility]# [id number] 4Result Comment: [09/09/2017] [facility]# [id number] Medications ALPRAZolam 0.5 mg oral tablet 0.5 mg, 1, tablet, By Mouth, 3 times a day, PRN, Refills 0, Maintenance, for anxiety, 08/05/17 11:11:03 Start Date: 08/05/17 Status: Ordered amLODIPine 10 mg oral tablet 10 mg, 1, tablet, By Mouth, Daily, # 90 tablet, Refills 3, Tot. Refills 3, Maintenance, 06/28/19 8:28:20 EDT, Route to Pharmacy Electronically, [id number], [facility] Start Date: [...] 06/28/19 8:28:42 EDT, Route to Pharmacy Electronically, [id number], [facility] Start Date: 06/28/19 Status: Ordered metoprolol 50 mg oral tablet, extended release 50 mg, 1, tablet, By Mouth, Daily, # 90 tablet, Refills 3, Tot. Refills 3, Maintenance, 06/28/19 8:29:10 EDT, Route to Pharmacy Electronically, [id number], [facility], replaces IR metoprolol Start Date: 06/28/19 Status: Ordered pantoprazole 40 mg oral delayed release tablet 1 tablet = 40 mg, By Mouth, Daily, PRN Dyspepsia, # 30 tablet, 0 Refills, Maintenance, 12/07/19 11:01:00 EDT Start Date: 12/07/19 Status: Ordered ProAir HFA 90 mcg/inh inhalation aerosol with adapter 2, puffs, Inhalation, Every 6 hours, PRN, # 1 each, Refills 5, Tot. Refills 5, Maintenance, 02/23/19 13:14:12 EDT, Route to Pharmacy Electronically, [id number], [facility] Start Date: 02/23/19 Status: Ordered Problem List Condition Effective Dates [...]
--- OUTSIDE RECORDS SUMMARY | 2023-04-09 20:19 | XMS_ITS | Continuity of Care Document ---
Author Name Unknown Organization [facility] Andrzej lt Address [address] [place] [address]- Care Team Providers Care Vp Platforms Name Role Phone Ga Adkins MD Primary Care Physician [facility] Date(s): 09/30/19 - 11/09/19 [facility] Adult [address] [place] [address]- [facility] Attending Physician: Ga Adkins MD [...] [09/21/2018] [facility] [id number] 2Result Comment: [06/10/2017] [facility]: [id number] 3Result Comment: [09/09/2017] [facility]# [id number] 4Result Comment: [09/09/2017] [facility]# [id number] Medications ALPRAZolam 0.5 mg oral tablet 0.5 mg, 1, tablet, By Mouth, 3 times a day, PRN, Refills 0, Maintenance, for anxiety, 08/05/17 11:11:03 Start Date: 08/05/17 Status: Ordered amLODIPine 10 mg oral tablet 10 mg, 1, tablet, By Mouth, Daily, # 90 tablet, Refills 3, Tot. Refills 3, Maintenance, 06/28/19 8:28:20 EDT, Route to Pharmacy Electronically, [id number], [facility] Start Date: [...] 06/28/19 8:28:42 EDT, Route to Pharmacy Electronically, [id number], [facility] Start Date: 06/28/19 Status: Ordered metoprolol 50 mg oral tablet, extended release 50 mg, 1, tablet, By Mouth, Daily, # 90 tablet, Refills 3, Tot. Refills 3, Maintenance, 06/28/19 8:29:10 EDT, Route to Pharmacy Electronically, [id number], [facility], replaces IR metoprolol Start Date: 06/28/19 Status: Ordered ProAir HFA 90 mcg/inh inhalation aerosol with adapter 2, puffs, Inhalation, Every 6 hours, PRN, # 1 each, Refills 5, Tot. Refills 5, Maintenance, 02/23/19 13:14:12 EDT, Route to Pharmacy Electronically, [id number], [facility] Start Date: 02/23/19 Status: Ordered [...] 06/28/19 8:27:40 EDT, Route to Pharmacy Electronically, [id number], [facility] Start Date: 06/28/19 Status: Ordered [...] D deficiency(Confirmed) Active 1While living in [place] Social History Social History Type Response Smoking Status Current every day haily rocha; Type: Cigarettes; Tobacco use times per day: 1 PPD now down to 1 pack/week; Number of years: 36; Total pack years: 36; Started at age: 15; entered on: 03/02/17 Sex
--- OUTSIDE RECORDS SUMMARY | 2023-04-09 20:19 | XMS_ITS | Continuity of Care Document ---
Author Name Unknown Organization [facility] Ata Andrzej lt Address [address] [place] [address]- Care Team Providers Care Cook Chili Name Role Phone Ga Adkins MD Primary Care Physician [phone] [facility] - 10/27/19 [facility] Adult [address] [place] [address]- [facility] Attending Physician: Ga Adkins MD Allergies, Adverse [...] Given Patient Refuses 1Result Comment: [09/21/2018] [facility] [id number] 2Result Comment: [06/10/2017] [facility]: [id number] 3Result Comment: [09/09/2017] [facility] [place] [facility]# [id number] 4Result Comment: [09/09/2017] [facility]# [id number] Medications ALPRAZolam 0.5 mg oral tablet 0.5 mg, 1, tablet, By Mouth, 3 times a day, PRN, Refills 0, Maintenance, for anxiety, 08/05/17 11:11:03 Start Date: 08/05/17 Status: Ordered amLODIPine 10 mg oral tablet 10 mg, 1, tablet, By Mouth, Daily, # 90 tablet, Refills 3, Tot. Refills 3, Maintenance, 06/28/19 8:28:20 EDT, Route to Pharmacy Electronically, [id number], [facility] Start Date: [...] 06/28/19 8:28:42 EDT, Route to Pharmacy Electronically, [id number], [facility] Start Date: 06/28/19 Status: Ordered metoprolol 50 mg oral tablet, extended release 50 mg, 1, tablet, By Mouth, Daily, # 90 tablet, Refills 3, Tot. Refills 3, Maintenance, 06/28/19 8:29:10 EDT, Route to Pharmacy Electronically, [id number], [facility], replaces IR metoprolol Start Date: 06/28/19 Status: Ordered ProAir HFA 90 mcg/inh inhalation aerosol with adapter 2, puffs, Inhalation, Every 6 hours, PRN, # 1 each, Refills 5, Tot. Refills 5, Maintenance, 02/23/19 13:14:12 EDT, Route to Pharmacy Electronically, [id number], [facility] Start Date: 02/23/19 Status: [...] 06/28/19 8:27:40 EDT, Route to Pharmacy Electronically, [id number], [facility] Start Date: 06/28/19 Status: [...] Vitamin D deficiency(Confirmed) Active 1While living in [place] Social History Social History Type Response Smoking Status Current every day haily rocha; Type: Cigarettes; Tobacco use times per day: 1 PPD now down to 1 pack/week; Number of years: 36; Total pack years: 36; Started at age: 15; entered on: 03/02/17 Sex
--- OUTSIDE RECORDS SUMMARY | 2023-04-09 20:19 | XMS_ITS | Continuity of Care Document ---
Author Name Unknown Organization [facility] Andrzej lt Address [address] [place] [address]- Care Team Providers Care Affiliate Manager Name Role Phone Lucille KEY, Ga Pollard Primary Care Physician [facility]s): 07/23/22 - 08/22/22 [facility] Adult [address] [place] [address]- Allergies, Adverse Reactions, Alerts Substance Reaction Severity [...] Refuses 1Result Comment: [09/21/2018] [facility] [id number] 2Result Comment: [06/10/2017] [facility]: [id number] 3Result Comment: [09/09/2017] [facility]# [id number] 4Result Comment: [09/09/2017] [facility]# [id number] Medications amLODIPine 10 mg oral tablet 10 mg, 1, tablet, By Mouth, Daily, # 90 tablet, Refills 3, Tot. Refills 3, Maintenance, 08/08/22 10:26:00 EST, Route to Pharmacy Electronically, [facility], 186, cm, 08/08/22 9:54:00 EST, Height, 66, kg, 07/10/22 17:36:00 EDT, Dry Weight Start Date: 08/08/22 Stop Date: 08/29/22 Status: Ordered metoprolol 50 mg oral tablet, extended release 50 mg, 1, tablet, By Mouth, Daily, # 90 tablet, Refills 3, Tot. Refills 3, Maintenance, 08/08/22 10:26:00 EST, Route to Pharmacy Electronically, [facility], replaces IR metoprolol, 186, cm, 08/08/22 9:54:00 EST, Height, 66, kg, 07/10/22... Start Date: 08/08/22 Stop Date: 08/29/22 Status: Ordered pregabalin 25 mg oral capsule 1 capsule = 25 mg, By Mouth, Daily at bedtime, # 30 capsule, 2 Refills, Maintenance, 08/08/22 10:30:00 EST, [facility], Partial fill upon patient request [...] D deficiency Confirmed Active 1While living in [place] Social History Social History Type Response Smoking Status Current every day josefina; Type: Cigarettes; Tobacco use times per day: 1 PPD now down to 1 pack/week; Number of years: 36; Total pack years: 36; Started at age: 15; entered on: 03/02/17 Sex Patient Care team information Care Team Personnel Name: Zaida Hall RN Position: [facility] RN Member Role: Primary Care Nurse Name: Yuly Vásquez RN Position: [facility] RN Member Role: Primary Care Nurse Name: Alyson Cage NP Position: [facility] PCO Associate Professional Member Role: Primary Care Nurse Address: Address: [address] [place] [id number] Name: Gulshan Moulton RN Position: [facility] RN Member Role: Primary Care Nurse Name: Ga Adkins MD Position: [facility] Primary Care Physician Member Role: PCP Address: Address: [address] [place] [address]- Name: Farnaz Adames Position: [facility] PCO RN Member Role: Lifetime Consulting Physician Name: Sarah Jackson RN Position: [facility] RN Member Role: Primary Care Nurse Name: Rita Edmonds RN Position: [facility] AMB Nurse Member Role: Primary Care Nurse Name: Sumit Salas RN Position: [facility] RN Member Role: Primary Care Nurse Care Team Related Persons Name: TANIA COYNE Address: [place] [address] Name: ROMERO SOLER Address: [address] [address]
--- OUTSIDE RECORDS SUMMARY | 2023-04-09 20:19 | XMS_ITS | Continuity of Care Document ---
Author Name Unknown Organization [facility] Andrzej lt Address [address] [place] [address]- Care Team Providers Care Clinical Nurse Reviewer Name Role Phone Ga Adkins MD Primary Care Physician [phone] Encounter [facility] Date(s): 04/20/20 - 04/27/20 [facility] Adult [address] [place] [address]- [facility] Attending Physician: Ga Adkins MD Allergies, [...] 1Result Comment: [09/21/2018] [facility] [id number] 2Result Comment: [06/10/2017] [facility]: [id number] 3Result Comment: [09/09/2017] [facility]# [id number] 4Result Comment: [09/09/2017] [facility]# [id number] Medications acetaminophen-oxyCODONE 325 mg-5 mg oral tablet 1, tablet, By Mouth, Every 4 hours, PRN, Dx: Venous thrombosis with pain, may fill for less than full amount, # 12 tablet, Refills 0, Tot. Refills 0, Maintenance, for pain, 04/20/20 10:13:00 EDT, Route to Pharmacy Electronically, [facility]... Start Date: 04/20/20 Status: Ordered ALPRAZolam 0.5 mg oral tablet 0.5 mg, 1, tablet, By Mouth, 3 times a day, PRN, Refills 0, Maintenance, for anxiety, 08/05/17 11:11:03 Start Date: 08/05/17 Status: Ordered amLODIPine 10 mg oral tablet 10 mg, 1, tablet, By Mouth, Daily, # 90 tablet, Refills 3, Tot. Refills 3, Maintenance, 06/28/19 8:28:20 EDT, Route to Pharmacy Electronically, [id number], [facility] Start Date: [...] EDT, Supply Start Date: 04/20/20 Status: Ordered Flovent HFA 110 mcg/inh inhalation [...] 06/28/19 8:28:42 EDT, Route to Pharmacy Electronically, [id number], [facility] Start Date: 06/28/19 Status: Ordered metoprolol 50 mg oral tablet, extended release 50 mg, 1, tablet, By Mouth, Daily, # 90 tablet, Refills 3, Tot. Refills 3, Maintenance, 06/28/19 8:29:10 EDT, Route to Pharmacy Electronically, [id number], [facility], replaces IR [...] 03/12/20 9:30:00 EDT, Route to Pharmacy Electronically, [id number], [facility], 185.42, cm, [...] D deficiency(Confirmed) Active 1While living in [place] Vital Signs Most recent to oldest [Reference Range]: 1 Height 185.42 cm (04/20/20 9:09 AM) Weight 78.5 kg (04/20/20 9:09 AM) Oxygen Saturation [94-100 %] 97 % (04/20/20 9:09 AM) Pulse Rate [55-90 bpm] 89 bpm (04/20/20 9:09 AM) Body Mass Index [18.5-24.99] 22.83 (04/20/20 9:09 AM) Blood Pressure [90-138/55-84 mm Hg] 122/ 80mm Hg (04/20/20 9:09 AM) Temperature [96.8-100.4 DegF] 98.1 DegF (04/20/20 9:09 AM) Mode of Delivery (Oxygen) Room air (04/20/20 9:09 AM) Blood pressure sites Arm, right (04/20/20 9:09 AM) Temperature Route Oral (04/20/20 9:09 AM) Weight Obtained Via Standing scale (04/20/20 9:09 AM) Social History Social History Type Response Smoking Status Current every day haily rocha; Type: Cigarettes; Tobacco use times per day: 1 PPD now down to 1 pack/week; Number of years: 36; Total pack years: 36; Started at age: 15; entered on: 03/02/17 Sex
--- OUTSIDE RECORDS SUMMARY | 2023-04-09 20:20 | XMS_ITS | Continuity of Care Document ---
Author Name Unknown Organization [facility] Ata Andrzej lt Address [address] [place] [address]- Care Team Providers Care Ob Tech Name Role Phone Ga Adkins MD Primary Care Physician [phone] Encounter [facility] Date(s): 12/07/19 - 12/14/19 [facility] Adult [address] [place] [address]- [facility] Encounter Diagnosis Alcohol abuse(Discharge Diagnosis) - 12/07/19 Anxiety disorder(Discharge Diagnosis) - 12/07/19 Elevated cholesterol(Discharge Diagnosis) - 12/07/19 Attending Physician: Ga Adkins MD Allergies, Adverse [...] Not Given Patient Refuses 1Result Comment: [09/21/2018] [facility] [id number] 2Result Comment: [06/10/2017] [facility]: [id number] 3Result Comment: [09/09/2017] [facility]# [id number] 4Result Comment: [09/09/2017] [facility]# [id number] Medications ALPRAZolam 0.5 mg oral tablet 0.5 mg, 1, tablet, By Mouth, 3 times a day, PRN, Refills 0, Maintenance, for anxiety, 08/05/17 11:11:03 Start Date: 08/05/17 Status: Ordered amLODIPine 10 mg oral tablet 10 mg, 1, tablet, By Mouth, Daily, # 90 tablet, Refills 3, Tot. Refills 3, Maintenance, 06/28/19 8:28:20 EDT, Route to Pharmacy Electronically, [id number], [facility] Start Date: 06/28/19 Status: Ordered [...] 06/28/19 8:28:42 EDT, Route to Pharmacy Electronically, [id number], [facility] Start Date: 06/28/19 Status: Ordered metoprolol 50 mg oral tablet, extended release 50 mg, 1, tablet, By Mouth, Daily, # 90 tablet, Refills 3, Tot. Refills 3, Maintenance, 06/28/19 8:29:10 EDT, Route to Pharmacy Electronically, [id number], [facility], replaces IR metoprolol Start Date: [...] 02/23/19 13:14:12 EDT, Route to Pharmacy Electronically, [id number], [facility] Start Date: 02/23/19 Status: Ordered [...] Vitamin D deficiency(Confirmed) Active 1While living in [place] Diagnosis Diagnosis Type Effective Dates Health Status Clinical Service Informant Alcohol abuse Discharge Diagnosis 12/07/19 Anxiety disorder Discharge Diagnosis 12/07/19 Elevated cholesterol Discharge Diagnosis 12/07/19 Social History Social History Type Response Smoking Status Current every day sm oker; Type: Cigarettes; Tobacco use times per day: 1 PPD now down to 1 pack/week; Number of years: 36; Total pack years: 36; Started at age: 15; entered on: 03/02/17 Sex
--- OUTSIDE RECORDS SUMMARY | 2023-04-09 20:20 | XMS_ITS | Continuity of Care Document ---
Author Name Unknown Organization [facility] Ata Andrzej lt Address [address] [place] [address]- Care Team Providers Care Glass Cleaning Machine Tender Name Role Phone Lucille KEY, Ga Pollard Primary Care Physician [phone] [facility] Date(s): 07/15/22 - 08/14/22 [facility] Adult [address] [place] [address]- Allergies, Adverse Reactions, Alerts Substance Reaction Severity [...] Given Patient Refuses 1Result Comment: [09/21/2018] [facility] [id number] 2Result Comment: [06/10/2017] [facility]: [id number] 3Result Comment: [09/09/2017] [facility]# [id number] 4Result Comment: [09/09/2017] [facility]# 54508-956-00 Medications acetaminophen-hydrocodone 325 mg-10 mg oral tablet 1 tablet, By Mouth, 3 times a day, PRN Pain , Severe, # 21 tablet, 0 Refills, Acute 08/15/22 10:28:00 EST, 08/08/22 10:27:00 EST, [facility], Partial fill upon patient request if the prescription is for a schedule II opioid drug., 1 tabl... Start Date: 08/08/22 Stop Date: 08/15/22 Status: Ordered amLODIPine 10 mg oral tablet 10 mg, 1, tablet, By Mouth, Daily, # 90 tablet, Refills 3, Tot. Refills 3, Maintenance, 08/08/22 10:26:00 EST, Route to Pharmacy Electronically, [facility], 186, cm, 08/08/22 9:54:00 EST, Height, 66, kg, 07/10/22 17:36:00 EDT, Dry Weight Start Date: 08/08/22 Stop Date: 08/29/22 Status: Ordered metoprolol 50 mg oral tablet, extended release 50 mg, 1, tablet, By Mouth, Daily, # 90 tablet, Refills 3, Tot. Refills 3, Maintenance, 08/08/22 10:26:00 EST, Route to Pharmacy Electronically, [facility], replaces IR metoprolol, 186, cm, 08/08/22 9:54:00 EST, Height, 66, kg, 07/10/22... Start Date: 08/08/22 Stop Date: 08/29/22 Status: Ordered pregabalin 25 mg oral capsule 1 capsule = 25 mg, By Mouth, Daily at bedtime, # 30 capsule, 2 Refills, Maintenance, 08/08/22 10:30:00 EST, [facility], Partial fill upon patient request [...] D deficiency Confirmed Active 1While living in [place] Social History Social History Type Response Smoking Status Current every day sm oker; Type: Cigarettes; Tobacco use times per day: 1 PPD now down to 1 pack/week; Number of years: 36; Total pack years: 36; Started at age: 15; entered on: 03/02/17 Sex Patient Care team information Care Team Personnel Name: Zaida Hall RN Position: [facility] RN Member Role: Primary Care Nurse Name: Yuly Vásquez RN Position: [facility] RN Member Role: Primary Care Nurse Name: Alyson Cage NP Position: [facility] PCO Associate Professional Member Role: Primary Care Nurse Address: Address: [address] [place] [address]- Name: Kenney RN, Gulshan Novak Position: [facility] ED RN W/OE and Tasks Member Role: Primary Care Nurse Name: Ga Adkins MD Position: [facility] Primary Care Physician Member Role: PCP Address: Address: [address] [place] [address]- Name: Farnaz Adames Position: [facility] RN Member Role: Lifetime Consulting Physician Name: Sarah Jackson RN Position: [facility] RN Member Role: Primary Care Nurse Name: Rita Edmonds RN Position: [facility] AMB Nurse Member Role: Primary Care Nurse Name: Sumit Salas RN Position: [facility] RN Member Role: Primary Care Nurse Care Team Related Persons Name: TANIA COYNE Address: [place] [address] Name: ROMERO SOLER Address: home [address] [place] [address]
--- OUTSIDE RECORDS SUMMARY | 2023-04-09 20:20 | XMS_ITS | Continuity of Care Document ---
Author Name Unknown Organization [facility] Andrzej lt Address [address] [place] [address]- Care Team Providers Care Legal Billing Analyst Name Role Phone Lucille KEY, Ga Pollard Primary Care Physician [facility] 08[facility]20[facility]22 - 09/19/22 [facility] Adult [address] [place] [address]- Allergies, Adverse Reactions, Alerts Substance Reaction Severity [...] Not Given Patient Refuses 1Result Comment: [09/21/2018] [facility] [id number] 2Result Comment: [06/10/2017] [facility]: [id number] 3Result Comment: [09/09/2017] [facility]# [id number] 4Result Comment: [09/09/2017] [facility]# [id number] Medications amLODIPine 10 mg oral tablet 10 [...] EST, Route to Pharmacy Electronically, [facility], replaces IR metoprolol, 186, cm, [...] D deficiency Confirmed Active 1While living in [place] Social History Social History Type Response Smoking Status Current every day sm oker; Type: Cigarettes; Tobacco use times per day: 1 PPD now down to 1 pack/week; Number of years: 36; Total pack years: 36; Started at age: 15; entered on: 03/02/17 Sex Patient Care team information Care Team Personnel Name: Zaida Hall RN Position: [facility] RN Member Role: Primary Care Nurse Name: Yuly Vásquez RN Position: [facility] RN Member Role: Primary Care Nurse Name: Alyson Cage NP Position: [facility] PCO Associate Professional Member Role: Primary Care Nurse Address: Address: [address] [place] [address]- Name: Kenney DAS, Gulshan Novak Position: [facility] RN Member Role: Primary Care Nurse Name: Ga Adkins MD Position: [facility] Primary Care Physician Member Role: PCP Address: Address: [address] [place] [address]- Name: aFrnaz Adames Position: [facility] RN Member Role: Lifetime Consulting Physician Name: Sarah Jackson RN Position: [facility] RN Member Role: Primary Care Nurse Name: Rita Edmonds RN Position: [facility] AMB Nurse Member Role: Primary Care Nurse Name: Sumit Salas RN Position: [facility] RN Member Role: Primary Care Nurse Care Team Related Persons Name: TANIA COYNE Address: [place] [address] Name: ROMERO SOLER Address: [address] [address]
--- OUTSIDE RECORDS SUMMARY | 2023-04-09 20:20 | XMS_ITS | Continuity of Care Document ---
Author Name Unknown Organization [facility] Andrzej lt Address [address] [place] [address]- Care Team Providers Care Podiatrist Name Role Phone Lucille KEY, Ga Pollard Primary Care Physician [facility] Date[facility]s): 07/09/22 - 08/08/22 [facility] Adult [address] [place] [address]- Allergies, Adverse Reactions, Alerts Substance Reaction Severity [...] Not Given Patient Refuses 1Result Comment: [09/21/2018] [facility] [id number] 2Result Comment: [06/10/2017] [facility]: [id number] 3Result Comment: [09/09/2017] [facility]# [id number] 4Result Comment: [09/09/2017] [facility]# 69051-147-18 Medications acetaminophen-hydrocodone 325 mg-10 mg oral tablet 1 tablet, By Mouth, 3 times a day, PRN Pain , Severe, # 21 tablet, 0 Refills, Acute 08/15/22 10:28:00 EST, 08/08/22 10:27:00 EST, [facility], Partial fill upon patient request if the prescription is for a schedule II opioid drug., 1 tabl... Start Date: 08/08/22 Stop Date: 08/15/22 Status: Ordered amLODIPine 10 mg oral tablet 10 mg, 1, tablet, By Mouth, Daily, # 90 tablet, Refills 3, Tot. Refills 3, Maintenance, 08/08/22 10:26:00 EST, Route to Pharmacy Electronically, [facility], 186, cm, 08/08/22 9:54:00 EST, Height, 66, kg, 07/10/22 17:36:00 EDT, Dry Weight Start Date: 08/08/22 Stop Date: 08/29/22 Status: Ordered metoprolol 50 mg oral tablet, extended release 50 mg, 1, tablet, By Mouth, Daily, # 90 tablet, Refills 3, Tot. Refills 3, Maintenance, 08/08/22 10:26:00 EST, Route to Pharmacy Electronically, [facility], replaces IR metoprolol, 186, cm, [...] D deficiency Confirmed Active 1While living in [place] Social History Social History Type Response Smoking Status Current every day sm oker; Type: Cigarettes; Tobacco use times per day: 1 PPD now down to 1 pack/week; Number of years: 36; Total pack years: 36; Started at age: 15; entered on: 03/02/17 Sex Patient Care team information Care Team Personnel Name: Zaida Hall RN Position: [facility] RN Member Role: Primary Care Nurse Name: Yuly Vásquez RN Position: [facility] RN Member Role: Primary Care Nurse Name: Alyson Cage NP Position: [facility] PCO Associate Professional Member Role: Primary Care Nurse Address: Address: [address] [place] [address] Name: Gulshan Moulton RN Position: [facility] RN Member Role: Primary Care Nurse Name: Ga Adkins MD Position: [facility] Primary Care Physician Member Role: PCP Address: Address: [address] [place] [address] Name: Farnaz Adames Position: [facility] RN Member Role: Lifetime Consulting Physician Name: Sarah Jackson RN Position: [facility] RN Member Role: Primary Care Nurse Name: Rita Edmonds RN Position: [facility] AMB Nurse Member Role: Primary Care Nurse Name: Sumit Salas RN Position: [facility] RN Member Role: Primary Care Nurse Care Team Related Persons Name: TANIA COYNE Address: [place] [address] Name: ROMERO SOLER Address: home [address] [place] [address]
--- OUTSIDE RECORDS SUMMARY | 2023-04-09 20:20 | XMS_ITS | Continuity of Care Document ---
Author Name Unknown Organization [facility] Andrzej lt Address [address] [place] [address]- Care Team Providers Care Blown Film Extrusion Operator Name Role Phone Lucille KEY, Ga Pollard Primary Care Physician [facility]): [facility]24[facility]20 [facility] Adult [address] [place] [address]- [facility] Attending Physician: Admtr, Ar8 Admitting Physician: Admtr, [...] Not Given Patient Refuses 1Result Comment: [09/21/2018] [facility] [id number] 2Result Comment: [06/10/2017] [facility]: [id number] 3Result Comment: [09/09/2017] [facility]# [id number] 4Result Comment: [09/09/2017] [facility]# [id number] Medications ALPRAZolam 0.5 mg oral tablet 0.5 mg, 1, tablet, By Mouth, 3 times a day, PRN, Refills 0, Maintenance, for anxiety, 08/05/17 11:11:03 Start Date: 08/05/17 Status: Ordered amLODIPine 10 mg oral tablet 10 mg, 1, tablet, By Mouth, Daily, # 90 tablet, Refills 3, Tot. Refills 3, Maintenance, 06/28/19 8:28:20 EDT, Route to Pharmacy Electronically, [id number], [facility] Start Date: 06/28/19 Status: Ordered apixaban 5 mg oral tablet 1 tablet = 5 mg, By Mouth, 2 times a day, # 60 tablet, 1 Refills, Maintenance, 05/15/20 13:00:00 EDT, Tablet, [facility], 185.42, cm, 04/20/20 9:09:00 EDT, Height Start Date: 05/15/20 Status: Ordered cholecalciferol 50,000 intl units oral capsule 1 capsule = 50,000 International_Units, By Mouth, Every week, # 12 capsule, 0 Refills, Maintenance,04/17/20 16:24:00 EDT, Capsule, [facility], 185.42, cm, 03/12/20 8:37:00 EDT, [...] 06/28/19 8:28:42 EDT, Route to Pharmacy Electronically, [id number], [facility] Start Date: 06/28/19 Status: Ordered metoprolol 50 mg oral tablet, extended release 50 mg, 1, tablet, By Mouth, Daily, # 90 tablet, Refills 3, Tot. Refills 3, Maintenance, 06/28/19 8:29:10 EDT, Route to Pharmacy Electronically, [id number], [facility], replaces IR metoprolol Start Date: [...] 03/12/20 9:30:00 EDT, Route to Pharmacy Electronically, [id number], [facility], 185.42, cm, 03/12/20 8:37:00 EDT, Height Start Date: 03/12/20 Status: Ordered Trelegy Ellipta inhalation powder 1 puffs, Inhalation, Daily, at the same time every day, # 1 each, 2 Refills, Maintenance, 05/25/20 7:08:00 EDT, Powder, [facility], 185.42, cm, 05/25/20 6:57:00 EDT, [...] Vitamin D deficiency(Confirmed) Active 1While living in [place] Social History Social History Type Response Smoking Status Current every day haily rocha; Type: Cigarettes; Tobacco use times per day: 1 PPD now down to 1 pack/week; Number of years: 36; Total pack years: 36; Started at age: 15; entered on: 03/02/17 Sex
--- OUTSIDE RECORDS SUMMARY | 2023-04-09 20:20 | XMS_ITS | Continuity of Care Document ---
Author Name Unknown Organization [facility] Andrzej lt Address [address] [place] [address]- Care Team Providers Care Hotel Custodian Name Role Phone Ga Adkins MD Primary Care Physician [facility] 01[facility]22 - 05/03/22 [facility] Adult [address] [place] [address]- Attending Physician: Ga Adkins MD Allergies, Adverse [...] [facility] [id number] 2Result Comment: [06/10/2017] [facility]: [id number] 3Result Comment: [09/09/2017] [facility]# [id number] 4Result Comment: [09/09/2017] [facility]# [id number] Medications ALPRAZolam 0.5 mg oral tablet 0.5 mg, 1, tablet, By Mouth, 3 times a day, PRN, Refills 0, Maintenance, for anxiety, 08/05/17 11:11:03 Start Date: 08/05/17 Status: Ordered amLODIPine 10 mg oral tablet 10 mg, 1, tablet, By Mouth, Daily, # 90 tablet, Refills 1, Tot. Refills 1, Maintenance, 02/18/22 13:33:00 EDT, Route to Pharmacy Electronically, [email or web address], 185.42, cm, 05/07/21 10:02:00 EDT, Height Start Date: 02/18/22 Status: Ordered Compression Stockings See Instructions, # 1 each, Maintenance, surgical, thigh high length 20-30 mm Hg, 04/20/20 9:37:00 EDT, Supply Start Date: 04/20/20 Status: Ordered D3-50 oral capsule 1 capsule, By Mouth, Every week, # 12 capsule, 0 Refills, Maintenance, 03/19/21 12:03:00 EDT, [facility], 185.42, cm, 03/08/21 10:27:00 EDT, Height Start Date: 03/19/21 Status: Ordered lisinopril 20 mg oral tablet 20 mg, 1, tablet, By Mouth, Daily, # 90 tablet, Refills 1, Tot. Refills 1, Maintenance, 02/18/22 13:33:00 EDT, Route to Pharmacy Electronically, [email or web address], 185.42, cm, 05/07/21 10:02:00 EDT, Height Start Date: 02/18/22 Status: Ordered metoprolol 50 mg oral tablet, extended release 50 mg, 1, tablet, By Mouth, Daily, # 90 tablet, Refills 1, Tot. Refills 1, Maintenance, 02/18/22 13:33:00 EDT, Route to Pharmacy Electronically, [facility], replaces IR metoprolol, 185.42, cm, [...] 03/01/21 8:55:00 EDT, Route to Pharmacy Electronically, [id number], [email or web address], 185.42, cm, 10/15/20 8:52:00 EST, Height Start Date: 03/01/21 Status: Ordered Proventil HFA 90 mcg/inh inhalation aerosol with adapter 2, puffs, Inhalation, 4 times a day, PRN, # 25 Gm, Refills 2, Tot. Refills 2, Maintenance, 204:54:00 EST, Aerosol, Route to Pharmacy Electronically, [id number], [facility], 185.42, cm, 05/25/20 6:57:00 ED... [...] Vitamin D deficiency(Confirmed) Active 1While living in [place] Social History Social History Type Response Smoking Status Current every day haily rocha; Type: Cigarettes; Tobacco use times per day: 1 PPD now down to 1 pack/week; Number of years: 36; Total pack years: 36; Started at age: 15; entered on: 03/02/17 Sex
--- OUTSIDE RECORDS SUMMARY | 2023-04-09 20:20 | XMS_ITS | Continuity of Care Document ---
Author Name Unknown Organization [facility] [place] Andrzej lt Address [address] [place] [address]- Care Team Providers Care Hazmat Truck Driver Name Role Phone Not on Staff, PCP Primary Care Physician Unavail able [facility]s): 08/08/22 - 10/03/22 [facility] [place] Adult [address] [place] [address]- Attending Physician: Lucille KEY, Ga Pollard Allergies, Adverse Reactions, Alerts Substance Reaction Severity [...] Not Given Patient Refuses 1Result Comment: [09/21/2018] [facility] [id number] 2Result Comment: [06/10/2017] [facility]: [id number] 3Result Comment: [09/09/2017] [facility]# [id number] 4Result Comment: [09/09/2017] [facility]# [id number] Medications amLODIPine 10 mg oral tablet 10 mg, 1, tablet, By Mouth, Daily, # 90 tablet, Refills 3, Tot. Refills 3, Maintenance, 08/08/22 10:26:00 EST, Route to Pharmacy Electronically, [facility], 186, cm, 08/08/22 9:54:00 EST, Height, 66, kg, 07/10/22 17:36:00 EDT, Dry Weight Start Date: 08/08/22 Stop Date: 08/29/22 Status: Ordered metoprolol 50 mg oral tablet, extended release 50 mg, 1, tablet, By Mouth, Daily, # 90 tablet, Refills 3, Tot. Refills 3, Maintenance, 08/08/22 10:26:00 EST, Route to Pharmacy Electronically, [facility], replaces IR metoprolol, 186, cm, [...] D deficiency Confirmed Active 1While living in [place] Social History Social History Type Response Smoking Status Current every day sm oker; Type: Cigarettes; Tobacco use times per day: 1 PPD now down to 1 pack/week; Number of years: 36; Total pack years: 36; Started at age: 15; entered on: 03/02/17 Sex Patient Care team information Care Team Personnel Name: Zaida Hall RN Position: [facility] RN Member Role: Primary Care Nurse Name: Yuly Vásquez RN Position: [facility] RN Member Role: Primary Care Nurse Name: Alyson Cage NP Position: [facility] PCO Associate Professional Member Role: Primary Care Nurse Address: Address: [address] [place] [id number] Name: Gulshan Moulton RN Position: [facility] RN Member Role: Primary Care Nurse Name: Farnaz Adames Position: [facility] PCO RN Member Role: Lifetime Consulting Physician Name: Not on Staff, PCP Position: [facility] Physician (General Medicine) Member Role: PCP Name: Sarah Jackson RN Position: [facility] RN Member Role: Primary Care Nurse Name: Rita Edmonds RN Position: [facility] AMB Nurse Member Role: Primary Care Nurse Name: Sumit Salas RN Position: [facility] RN Member Role: Primary Care Nurse Care Team Related Persons Name: TANIA COYNE Address: [place] [address] Name: ROMERO SOLER Address: home [address] [place] [id number]
--- OUTSIDE RECORDS SUMMARY | 2023-04-09 20:20 | XMS_ITS | Continuity of Care Document ---
Author Name Unknown Organization [facility] Andrzej lt Address [address] [place] [address]- Care Team Providers Care Pest Control Service Representative Name Role Phone Lucille KEY, Ga Pollard Primary Care Physician [facility]s): 10/31/20 - 11/30/20 [facility] Adult [address] [place] [address]- Allergies, Adverse Reactions, Alerts Substance Reaction Severity [...] Not Given Patient Refuses 1Result Comment: [09/21/2018] [facility] [id number] 2Result Comment: [06/10/2017] [facility]: [id number] 3Result Comment: [09/09/2017] [facility]# [id number] 4Result Comment: [09/09/2017] [facility]# 14852-465-53 Medications ALPRAZolam 0.5 mg oral tablet 0.5 mg, 1, tablet, By Mouth, 3 times a day, PRN, Refills 0, Maintenance, for anxiety, 08/05/17 11:11:03 Start Date: 08/05/17 Status: Ordered amLODIPine 10 mg oral tablet 10 mg, 1, tablet, By Mouth, Daily, # 90 tablet, Refills 0, Tot. Refills 0, Maintenance, 11/01/20 10:02:00 EST, [id number] 185.42, cm, 10/15/20 8:52:00 EST, Height [...] 11/01/20 10:02:00 EST, [facility] Electronically[id number] 185.42, cm, 10/15/20 8:52:00 EST, Height Start Date: 11/01/20 Status: Ordered metoprolol 50 mg oral tablet, extended release 50 mg, 1, tablet, By Mouth, Daily, # 90 tablet, Refills 0, Tot. Refills 0, Maintenance, 11/01/20 10:02:00 EST, Route to Pharmacy Electronically, [facility] #[id number], replaces IR metoprolol, 185.42, cm, 10/15/20 [...] 03/12/20 9:30:00 EDT, Route to Pharmacy Electronically, [id number], [facility], 185.42, cm, 03/12/20 8:37:00 EDT, Height Start Date: 03/12/20 Status: Ordered Proventil HFA 90 mcg/inh inhalation aerosol with adapter 2, puffs, Inhalation, 4 times a day, PRN, # 25 Gm, Refills 2, Tot. Refills 2, Maintenance, 204:54:00 EST, Aerosol, Route to Pharmacy Electronically, [id number], [facility], 185.42, cm, 05/25/20 6:57:00 ED... Start Date: 08/02/20 Status: Ordered Trelegy Ellipta inhalation powder 1 puffs, Inhalation, Daily, at the same time every day, # 1 each, 2 Refills, Maintenance, 05/25/20 7:08:00 EDT, Powder, [facility], 185.42, cm, 05/25/20 6:57:00 EDT, [...]
--- OUTSIDE RECORDS SUMMARY | 2023-04-09 20:20 | XMS_ITS | Continuity of Care Document ---
Author Name Unknown Organization [facility] Andrzej lt Address [address] [place] [address]- Care Team Providers Care Multi Sensor Operator Name Role Phone Lucille KEY, Ga Pollard Primary Care Physician [phone] [facility] 10[facility]21[facility]19 - 10/31/19 [facility] Adult [address] [place] [address]- [facility] Attending Physician: AdmChloe ag Admitting Physician: AdmtrChloe [...] Patient Refuses 1Result Comment: [09/21/2018] [facility] [id number] 2Result Comment: [06/10/2017] [facility]: [id number] 3Result Comment: [09/09/2017] [facility]# [id number] 4Result Comment: [09/09/2017] [facility]# 43619-590-51 Medications ALPRAZolam 0.5 mg oral tablet 0.5 mg, 1, tablet, By Mouth, 3 times a day, PRN, Refills 0, Maintenance, for anxiety, 08/05/17 11:11:03 Start Date: 08/05/17 Status: Ordered amLODIPine 10 mg oral tablet 10 mg, 1, tablet, By Mouth, Daily, # 90 tablet, Refills 3, Tot. Refills 3, Maintenance, 06/28/19 8:28:20 EDT, Route to Pharmacy Electronically, [id number], [facility] Start Date: [...] 06/28/19 8:28:42 EDT, Route to Pharmacy Electronically, [id number], [facility] Start Date: 06/28/19 Status: Ordered metoprolol 50 mg oral tablet, extended release 50 mg, 1, tablet, By Mouth, Daily, # 90 tablet, Refills 3, Tot. Refills 3, Maintenance, 06/28/19 8:29:10 EDT, Route to Pharmacy Electronically, [id number], [facility], replaces IR metoprolol Start Date: 06/28/19 Status: Ordered ProAir HFA 90 mcg/inh inhalation aerosol with adapter 2, puffs, Inhalation, Every 6 hours, PRN, # 1 each, Refills 5, Tot. Refills 5, Maintenance, 02/23/19 13:14:12 EDT, Route to Pharmacy Electronically, [id number], [facility] Start Date: 02/23/19 Status: Ordered [...] 06/28/19 8:27:40 EDT, Route to Pharmacy Electronically, [id number], [facility] Start Date: 06/28/19 Status: Ordered [...] Vitamin D deficiency(Confirmed) Active 1While living in [place] Social History Social History Type Response Smoking Status Current every day sm oker; Type: Cigarettes; Tobacco use times per day: 1 PPD now down to 1 pack/week; Number of years: 36; Total pack years: 36; Started at age: 15; entered on: 03/02/17 Sex
--- OUTSIDE RECORDS SUMMARY | 2023-04-09 20:20 | XMS_ITS | Continuity of Care Document ---
Author Name Unknown Organization [facility] Andrzej lt Address [address] [place] [address]- Care Team Providers Care Sales Development Coordinator Name Role Phone Lucille KEY, Ga Pollard Primary Care Physician [phone] [facility]s): 01/17/21 - 02/16/21 [facility] Adult [address] [place] [address]- Allergies, Adverse Reactions, Alerts Substance Reaction Severity [...] Refuses 1Result Comment: [09/21/2018] [facility] [id number] 2Result Comment: [06/10/2017] [facility]: [id number] 3Result Comment: [09/09/2017] [facility]# [id number] 4Result Comment: [09/09/2017] [facility]# 20811-903-08 Medications ALPRAZolam 0.5 mg oral tablet 0.5 mg, 1, tablet, By Mouth, 3 times a day, PRN, Refills 0, Maintenance, for anxiety, 08/05/17 11:11:03 Start Date: 08/05/17 Status: Ordered amLODIPine 10 mg oral tablet 10 mg, 1, tablet, By Mouth, Daily, # 90 tablet, Refills 3, Tot. Refills 3, Maintenance, 02/06/21 15:19:00 EDT, Route to Pharmacy Electronically, [facility], 185.42, cm, 10/15/20 8:52:00 EST, Height Start Date: 02/06/21 Status: Ordered cholecalciferol 50,000 intl units oral capsule 1 capsule = 50,000 International_Units, By Mouth, Every week, # 12 capsule, 0 Refills, Maintenance,04/17/20 16:24:00 EDT, Capsule, [facility], 185.42, cm, 03/12/20 8:37:00 EDT, [...] 02/06/21 15:19:00 EDT, Route to Pharmacy Electronically, [facility], 185.42, cm, 10/15/20 8:52:00 EST, Height Start Date: 02/06/21 Status: Ordered metoprolol 50 mg oral tablet, extended release 50 mg, 1, tablet, By Mouth, Daily, # 90 tablet, Refills 3, Tot. Refills 3, Maintenance, 02/06/21 15:18:00 EDT, Route to Pharmacy Electronically, [facility] [...] 03/12/20 9:30:00 EDT, Route to Pharmacy Electronically, [id number], [facility], 185.42, cm, 03/12/20 8:37:00 EDT, Height Start Date: 03/12/20 Status: Ordered Proventil HFA 90 mcg/inh inhalation aerosol with adapter 2, puffs, Inhalation, 4 times a day, PRN, # 25 Gm, Refills 2, Tot. Refills 2, Maintenance, 204:54:00 EST, Aerosol, Route to Pharmacy Electronically, [id number], [facility], 185.42, cm, 05/25/20 6:57:00 ED... Start Date: 08/02/20 Status: Ordered Trelegy Ellipta inhalation powder 1 puffs, Inhalation, Daily, at the same time every day, # 1 each, 2 Refills, Maintenance, 05/25/20 7:08:00 EDT, Powder, [facility], 185.42, cm, 05/25/20 6:57:00 EDT, [...]
--- OUTSIDE RECORDS SUMMARY | 2023-04-09 20:20 | XMS_ITS | Continuity of Care Document ---
Author Name Unknown Organization [facility] [place] Andrzej lt Address [address] [place] [address]- Care Team Providers Care Senior Ui Software Engineer Name Role Phone Lucille KEY, Ga Pollard Primary Care Physician Encounter [facility] Date(s): 05/14/20 - 06/13/20 [facility] [place] Adult [address] [place] [address]- [facility] Allergies, Adverse Reactions, Alerts Substance Reaction Severity [...] Not Given Patient Refuses 1Result Comment: [09/21/2018] [facility] [id number] 2Result Comment: [06/10/2017] [facility]: [id number] 3Result Comment: [09/09/2017] [facility]# [id number] 4Result Comment: [09/09/2017] [facility]# [id number] Medications ALPRAZolam 0.5 mg oral tablet 0.5 mg, 1, tablet, By Mouth, 3 times a day, PRN, Refills 0, Maintenance, for anxiety, 08/05/17 11:11:03 Start Date: 08/05/17 Status: Ordered amLODIPine 10 mg oral tablet 10 mg, 1, tablet, By Mouth, Daily, # 90 tablet, Refills 3, Tot. Refills 3, Maintenance, 06/28/19 8:28:20 EDT, Route to Pharmacy Electronically, [id number], [facility] Start Date: 06/28/19 Status: Ordered apixaban 5 mg oral tablet 1 tablet = 5 mg, By Mouth, 2 times a day, # 60 tablet, 1 Refills, Maintenance, 05/15/20 13:00:00 EDT, Tablet, [facility], 185.42, cm, 04/20/20 9:09:00 EDT, Height Start Date: 05/15/20 Status: Ordered cholecalciferol 50,000 intl units oral capsule 1 capsule = 50,000 International_Units, By Mouth, Every week, # 12 capsule, 0 Refills, Maintenance,04/17/20 16:24:00 EDT, Capsule, [facility], 185.42, cm, 03/12/20 8:37:00 EDT, [...] 06/28/19 8:28:42 EDT, Route to Pharmacy Electronically, [id number], [facility] Start Date: 06/28/19 Status: Ordered metoprolol 50 mg oral tablet, extended release 50 mg, 1, tablet, By Mouth, Daily, # 90 tablet, Refills 3, Tot. Refills 3, Maintenance, 06/28/19 8:29:10 EDT, Route to Pharmacy Electronically, [id number], [facility], replaces IR metoprolol Start Date: [...] 03/12/20 9:30:00 EDT, Route to Pharmacy Electronically, [id number], [facility], 185.42, cm, 03/12/20 8:37:00 EDT, Height Start Date: 03/12/20 Status: Ordered Trelegy Ellipta inhalation powder 1 puffs, Inhalation, Daily, at the same time every day, # 1 each, 2 Refills, Maintenance, 05/25/20 7:08:00 EDT, Powder, [facility], 185.42, cm, 05/25/20 6:57:00 EDT, [...]
--- OUTSIDE RECORDS SUMMARY | 2023-04-09 20:20 | XMS_ITS | Continuity of Care Document ---
Author Name Unknown Organization [facility] Andrzej lt Address [address] [place] [address]- Care Team Providers Care Bookkeeper Receptionist Name Role Phone Lucille KEY, Ga Pollard Primary Care Physician [phone] [place] [facility] Date[place] 04/17/20 - 05/17/20 [facility] Adult [address] [place] [address]- [facility] Allergies, Adverse Reactions, Alerts Substance [...] Given Patient Refuses 1Result Comment: [09/21/2018] [facility] [id number] 2Result Comment: [06/10/2017] [facility]: [id number] 3Result Comment: [09/09/2017] [facility]# [id number] 4Result Comment: [09/09/2017] [facility]# [id number] Medications acetaminophen-oxyCODONE 325 mg-5 mg oral tablet [...] 06/28/19 8:28:20 EDT, Route to Pharmacy Electronically, [id number], [facility] Start Date: 06/28/19 Status: Ordered apixaban 5 mg oral tablet 1 tablet = 5 mg, By Mouth, 2 times a day, # 60 tablet, 1 Refills, Maintenance, 05/15/20 13:00:00 EDT, Tablet, [facility], 185.42, cm, 04/20/20 9:09:00 EDT, Height Start Date: 05/15/20 Status: Ordered apixaban Starter Pack 5 mg [...] 06/28/19 8:28:42 EDT, Route to Pharmacy Electronically, [id number], [facility] Start Date: 06/28/19 Status: Ordered metoprolol 50 mg oral tablet, extended release 50 mg, 1, tablet, By Mouth, Daily, # 90 tablet, Refills 3, Tot. Refills 3, Maintenance, 06/28/19 8:29:10 EDT, Route to Pharmacy Electronically, [id number], [facility], replaces IR [...] 03/12/20 9:30:00 EDT, Route to Pharmacy Electronically, [id number], [facility], 185.42, cm, [...] Vitamin D deficiency(Confirmed) Active 1While living in [place] Social History Social History Type Response Smoking Status Current every day haily rocha; Type: Cigarettes; Tobacco use times per day: 1 PPD now down to 1 pack/week; Number of years: 36; Total pack years: 36; Started at age: 15; entered on: 03/02/17 Sex
--- OUTSIDE RECORDS SUMMARY | 2023-04-09 20:20 | XMS_ITS | Continuity of Care Document ---
Author Name Unknown Organization [facility] Andrzej lt Address [address] [place] [address]- Care Team Providers Care Administrative Support Assistant Name Role Phone Ga Adkins MD Primary Care Physician [phone] Encounter [facility] Date(s): 01/07/21 - 01/14/21 [facility] Adult [address] [place] [address]- Attending Physician: Ga Adkins MD Allergies, Adverse [...] Comment: [09/21/2018] [facility] [id number] 2Result Comment: [06/10/2017] [facility]: [id number] 3Result Comment: [09/09/2017] [facility]# [id number] 4Result Comment: [09/09/2017] [facility]# [id number] Medications acetaminophen-HYDROcodone 325 mg-5 mg oral tablet 1 tablet, By Mouth, 3 times a day, PRN for severe pain, # 30 tablet, 0 Refills, Acute 02/06/21 13:50:00 EDT, 01/07/21 13:50:00 EDT, Tablet, [facility], Partial fill upon patient request if the prescription is for a schedule II opioid keerthi. Start Date: 01/07/21 Stop Date: 02/06/21 Status: Ordered ALPRAZolam 0.5 mg oral tablet 0.5 mg, 1, tablet, By Mouth, 3 times a day, PRN, Refills 0, Maintenance, for anxiety, 08/05/17 11:11:03 Start Date: 08/05/17 Status: Ordered amLODIPine 10 mg oral tablet 10 mg, 1, tablet, By Mouth, Daily, # 90 tablet, Refills 0, Tot. Refills 0, Maintenance, 11/01/20 10:02:00 EST, Route to Pharmacy Electronically, [facility]/pharmacy #[id number], 185.42, cm, 10/15/20 8:52:00 EST, Height [...] 11/01/20 10:02:00 EST, Route to Pharmacy Electronically, [facility]/pharmacy #6429, 185.42, cm, 10/15/20 8:52:00 EST, Height Start Date: 11/01/20 Status: Ordered metoprolol 50 mg oral tablet, extended release 50 mg, 1, tablet, By Mouth, Daily, # 90 tablet, Refills 0, Tot. Refills 0, Maintenance, 11/01/20 10:02:00 EST, Route to Pharmacy Electronically, [facility]/pharmacy #6429, replaces IR metoprolol, 185.42, cm, [...] 03/12/20 9:30:00 EDT, Route to Pharmacy Electronically, [id number], [facility], 185.42, cm, 03/12/20 8:37:00 EDT, Height Start Date: 03/12/20 Status: Ordered Proventil HFA 90 mcg/inh inhalation aerosol with adapter 2, puffs, Inhalation, 4 times a day, PRN, # 25 Gm, Refills 2, Tot. Refills 2, Maintenance, 204:54:00 EST, Aerosol, Route to Pharmacy Electronically, [id number], [facility], 185.42, cm, [...]
--- OUTSIDE RECORDS SUMMARY | 2023-04-09 20:20 | XMS_ITS | Continuity of Care Document ---
Author Name Unknown Organization [facility] Andrzej lt Address [address] [place] [address]- Care Team Providers Care Registered Phlebotomist Part Time Name Role Phone Ga Adkins MD Primary Care Physician Encounter [facility] Date(s): 04/03/21 - 04/10/21 [facility] Adult [address] [place] [address]- Attending Physician: Ga Adkins MD Allergies, Adverse [...] 1Result Comment: [09/21/2018] [facility] [id number] 2Result Comment: [06/10/2017] [facility]: [id number] 3Result Comment: [09/09/2017] [facility]# [id number] 4Result Comment: [09/09/2017] [facility]# [id number] Medications ALPRAZolam 0.5 mg oral tablet 0.5 mg, 1, tablet, By Mouth, 3 times a day, PRN, Refills 0, Maintenance, for anxiety, 08/05/17 11:11:03 Start Date: 08/05/17 Status: Ordered amLODIPine 10 mg oral tablet 10 mg, 1, tablet, By Mouth, Daily, # 90 tablet, Refills 3, Tot. Refills 3, Maintenance, 02/06/21 15:19:00 EDT, Route to Pharmacy Electronically, [facility], 185.42, cm, 10/15/20 8:52:00 EST, Height Start Date: 02/06/21 Status: Ordered Compression Stockings See Instructions, # 1 each, Maintenance, surgical, thigh high length 20-30 mm Hg, 04/20/20 9:37:00 EDT, Supply Start Date: 04/20/20 Status: Ordered D3-50 oral capsule 1 capsule, By Mouth, Every week, # 12 capsule, 0 Refills, Maintenance, 03/19/21 12:03:00 EDT, [facility], 185.42, cm, 03/08/21 10:27:00 EDT, Height Start Date: 03/19/21 Status: Ordered lisinopril 20 mg oral tablet 20 mg, 1, tablet, By Mouth, Daily, # 90 tablet, Refills 3, Tot. Refills 3, Maintenance, 02/06/21 15:19:00 EDT, Route to Pharmacy Electronically, [facility], 185.42, cm, 10/15/20 8:52:00 EST, Height Start Date: 02/06/21 Status: Ordered metoprolol 50 mg oral tablet, extended release 50 mg, 1, tablet, By Mouth, Daily, # 90 tablet, Refills 3, Tot. Refills 3, Maintenance, 02/06/21 15:18:00 EDT, Route to Pharmacy Electronically, [facility], replaces IR metoprolol, 185.42, cm, [...] 03/01/21 8:55:00 EDT, Route to Pharmacy Electronically, [id number], [facility], 185.42, cm, 10/15/20 8:52:00 EST, Height Start Date: 03/01/21 Status: Ordered Proventil HFA 90 mcg/inh inhalation aerosol with adapter 2, puffs, Inhalation, 4 times a day, PRN, # 25 Gm, Refills 2, Tot. Refills 2, Maintenance, 204:54:00 EST, Aerosol, Route to Pharmacy Electronically, [id number], [facility], 185.42, cm, [...]
--- OUTSIDE RECORDS SUMMARY | 2023-04-09 20:20 | XMS_ITS | Continuity of Care Document ---
Author Name Unknown Organization [facility] Andrzej lt Address [address] [place] [address]- Care Team Providers Care Shear Tender Name Role Phone Ga Adkins MD Primary Care Physician Encounter [facility] Date(s): 10/15/20 - 10/22/20 [facility] Adult [address] [place] [address]- Attending Physician: Ga Adkins MD Allergies, Adverse [...] 1Result Comment: [09/21/2018] [facility] [id number] 2Result Comment: [06/10/2017] [facility]: [id number] 3Result Comment: [09/09/2017] [facility]# [id number] 4Result Comment: [09/09/2017] [facility]# [id number] Medications ALPRAZolam 0.5 mg oral tablet 0.5 [...] EDT, Height Start Date: 08/20/20 Status: Ordered cholecalciferol 50,000 intl units oral [...] 08/20/20 13:10:00 EST, Route to Pharmacy Electronically, [facility], 185.42, cm, 05/25/20 6:57:00 EDT, [...] 03/12/20 9:30:00 EDT, Route to Pharmacy Electronically, [id number], [facility], 185.42, cm, 03/12/20 8:37:00 EDT, Height Start Date: 03/12/20 Status: Ordered Proventil HFA 90 mcg/inh inhalation aerosol with adapter 2, puffs, Inhalation, 4 times a day, PRN, # 25 Gm, Refills 2, Tot. Refills 2, Maintenance, 204:54:00 EST, Aerosol, Route to Pharmacy Electronically, [id number], [facility], 185.42, cm, 05/25/20 6:57:00 ED... Start Date: 08/02/20 Status: Ordered Trelegy Ellipta inhalation powder 1 puffs, Inhalation, Daily, at the same time every day, # 1 each, 2 Refills, Maintenance, 05/25/20 7:08:00 EDT, Powder, [facility], 185.42, cm, 05/25/20 6:57:00 EDT, [...] D deficiency(Confirmed) Active 1While living in [place] Vital Signs Most recent to oldest [Reference Range]: 1 Height 185.42 cm (10/15/20 8:52 AM) Social History Social History Type Response Smoking Status Current every day haily rocha; Type: Cigarettes; Tobacco use times per day: 1 PPD now down to 1 pack/week; Number of years: 36; Total pack years: 36; Started at age: 15; entered on: 03/02/17 Sex
--- OUTSIDE RECORDS SUMMARY | 2023-04-09 20:20 | XMS_ITS | Continuity of Care Document ---
Author Name Unknown Organization [facility] Andrzej lt Address [address] [place] [address]- Care Team Providers Care Glass Deposition Tender Name Role Phone Lucille KEY, Ga Pollard Primary Care Physician [phone] Encounter [facility] Date(s): 03/19/21 - 04/18/21 [facility] Adult [address] [place] [address]- Allergies, Adverse Reactions, Alerts Substance Reaction Severity [...] Not Given Patient Refuses 1Result Comment: [09/21/2018] [facility] [id number] 2Result Comment: [06/10/2017] [facility]: [id number] 3Result Comment: [09/09/2017] [facility]# [id number] 4Result Comment: [09/09/2017] [facility]# [id number] Medications ALPRAZolam 0.5 mg oral tablet 0.5 mg, 1, tablet, By Mouth, 3 times a day, PRN, Refills 0, Maintenance, for anxiety, 08/05/17 11:11:03 Start Date: 08/05/17 Status: Ordered amLODIPine 10 mg oral tablet 10 mg, 1, tablet, By Mouth, Daily, # 90 tablet, Refills 3, Tot. Refills 3, Maintenance, 02/06/21 15:19:00 EDT, Route to Pharmacy Electronically, [facility], 185.42, cm, 10/15/20 8:52:00 EST, Height Start Date: 02/06/21 Status: Ordered Compression Stockings See Instructions, # 1 each, Maintenance, surgical, thigh high length 20-30 mm Hg, 04/20/20 9:37:00 EDT, Supply Start Date: 04/20/20 Status: Ordered D3-50 oral capsule 1 capsule, By Mouth, Every week, # 12 capsule, 0 Refills, Maintenance, 03/19/21 12:03:00 EDT, [facility], 185.42, cm, 03/08/21 10:27:00 EDT, Height Start Date: 03/19/21 Status: Ordered lisinopril 20 mg oral tablet 20 mg, 1, tablet, By Mouth, Daily, # 90 tablet, Refills 3, Tot. Refills 3, Maintenance, 02/06/21 15:19:00 EDT, Route to Pharmacy Electronically, [facility], 185.42, cm, 10/15/20 8:52:00 EST, Height Start Date: 02/06/21 Status: Ordered metoprolol 50 mg oral tablet, extended release 50 mg, 1, tablet, By Mouth, Daily, # 90 tablet, Refills 3, Tot. Refills 3, Maintenance, 02/06/21 15:18:00 EDT, Route to Pharmacy Electronically, [facility], replaces IR metoprolol, 185.42, cm, [...] 03/01/21 8:55:00 EDT, Route to Pharmacy Electronically, [id number], [facility], 185.42, cm, 10/15/20 8:52:00 EST, Height Start Date: 03/01/21 Status: Ordered Proventil HFA 90 mcg/inh inhalation aerosol with adapter 2, puffs, Inhalation, 4 times a day, PRN, # 25 Gm, Refills 2, Tot. Refills 2, Maintenance, 204:54:00 EST, Aerosol, Route to Pharmacy Electronically, [id number], [facility], 185.42, cm, [...]
--- OUTSIDE RECORDS SUMMARY | 2023-04-09 20:20 | XMS_ITS | Continuity of Care Document ---
Author Name Unknown Organization [facility] Andrzej lt Address [address] [place] [address]- Care Team Providers Care Health Practice Manager Name Role Phone Ga Adkins MD Primary Care Physician Encounter [facility] Date(s): 08/08/22 - 08/15/22 [facility] Adult [address] [place] [address]- Attending Physician: Ga Adkins MD Allergies, Adverse [...] [facility] [id number] 2Result Comment: [06/10/2017] [facility]: [id number] 3Result Comment: [09/09/2017] [facility]# [id number] 4Result Comment: [09/09/2017] [facility]# [id number] Medications amLODIPine 10 mg oral tablet 10 mg, 1, tablet, By Mouth, Daily, # 90 tablet, Refills 3, Tot. Refills 3, Maintenance, 08/08/22 10:26:00 EST, Route to Pharmacy Electronically, [facility], 186, cm, 08/08/22 9:54:00 EST, Height, 66, kg, 07/10/22 17:36:00 EDT, Dry Weight Start Date: 08/08/22 Stop Date: 08/29/22 Status: Ordered metoprolol 50 mg oral tablet, extended release 50 mg, 1, tablet, By Mouth, Daily, # 90 tablet, Refills 3, Tot. Refills 3, Maintenance, 08/08/22 10:26:00 EST, Route to Pharmacy Electronically, [facility], replaces IR metoprolol, 186, cm, [...] deficiency Confirmed Active 1While living in [place] Vital Signs Most recent to oldest [Reference Range]: 1 Height 186 cm (08/08/22 9:54 AM) Weight 77.1 kg (08/08/22 9:54 AM) Oxygen Saturation [94-100 %] 98 % (08/08/22 9:54 AM) Pulse Rate [55-90 bpm] 73 bpm (08/08/22 9:54 AM) Body Mass Index [18.5-24.99 kg/m2] 22.29 kg/m2 (08/08/22 9:54 AM) Blood Pressure [90-138/55-84 mm Hg] 108/ 68mm Hg (08/08/22 9:54 AM) Temperature [96.8-100.4 DegF] 98.3 DegF (08/08/22 9:54 AM) Mode of Delivery (Oxygen) Room air (08/08/22 9:54 AM) Blood pressure sites Arm, right (08/08/22 9:54 AM) Temperature Route Temporal (08/08/22 9:54 AM) Weight Obtained Via Standing scale (08/08/22 9:54 AM) Social History Social History Type Response Smoking Status Current every day haily okamauri; Type: Cigarettes; Tobacco use times per day: 1 PPD now down to 1 pack/week; Number of years: 36; Total pack years: 36; Started at age: 15; entered on: 03/02/17 Sex Note * Jessica Weber: PERFORM, SIGN, VERIFY Event Display: Patient Education/Instruction Authored Date: [id number] [facility] *[facility] So Ata [place] Clinical Summary Name DOMINGA MURRIETA Age 57 Years 1965 PCP Lucille KEY, Ga Pollard PCP [facility] [id number] Visit Date 08/08/2022 09:43:00 Additional Instructions: Scheduled Appointments?? Future Appointments ?No Future Appointments Scheduled Follow-Up Instructions ?? Diagnosis Medications: Please continue your medications until treatment is completed or stopped by your provider. Discuss any questions related to medications with your provider. Medications to Continue with No Changes These medications were not printed or sent to your pharmacy Acetaminophen / Hydrocodone (acetaminophen-HYDROcodone 325 mg-5 mg oral tablet) 1 tab(s) Oral 3 times a day as needed for severe pain for 5 Days. Refills: 0. Next Dose: Albuterol (ProAir HFA 90 mcg/inh inhalation aerosol with adapter) 2 puff(s) Inhalation every 6 hours as needed Wheezing/Shortness of Breath. Refills: 5. Next Dose: Albuterol (Proventil HFA 90 mcg/inh inhalation aerosol with adapter) 2 puff(s) Inhalation 4 times aday as needed for wheezing. Refills: 2. Next Dose: Alprazolam (ALPRAZolam 0.5 mg oral tablet) 1 tab(s) Oral 3 times a day as needed for anxiety. Next Dose: Amlodipine (amLODIPine 10 mg oral tablet) 1 tab(s) Oral Daily for 21 Days. APPOINTMENT NEEDED FOR ADDITIONAL REFILLS. Refills: 0. Next Dose: Cholecalciferol (D3-50 oral capsule) 1 capsule Oral every week. Refills: 0. Next Dose: Durable Medical Equipment (Compression Stockings) surgical, thigh high length 20-30 mm Hg. Refills:0. Next Dose: Folic Acid (folic acid 1 mg oral tablet) 1 tab(s) Oral Daily. Refills: 0. Next Dose: Gabapentin (gabapentin 300 mg oral capsule) 1 capsule Oral 3 times a day. Refills: 0. Next Dose: Metoprolol (metoprolol 50 mg oral tablet, extended release) 1 tab(s) Oral Daily for 21 Days. APPOINTMENT NEEDED FOR ADDITIONAL REFILLS. Refills: 0. Next Dose: Pantoprazole (pantoprazole 40 mg oral delayed release tablet) TAKE ONE TABLET BY MOUTH EVERY DAY ASNEEDED FOR DYSPEPSIA. Refills: 3. Next Dose: Allergy Info:?? traMADol; penicillins; aspirin Medications Given This Visit Medication Dose Route influenza virus vaccine, inactivated (influenza virus, inactivated vacc) 0.5 mL Intramuscular Future Orders ?No future orders Vital Signs Height 186 cm Weight 77.1 kg BMI 22.29 kg/m2 Blood Pressure 108 mm Hg/68 mm Hg Temperature 98.3 DegF Pulse Rate 73 bpm Respiratory Rate 02 Sat Mode of Delivery 98 %/Room air You can now view a summary of your hospital visit from the comfort of your home through a free online portal called [employer]. [employer] is a website that allows you to securely view your medical information including discharge summary, medications and follow-up visits. ??You can alsosend a secure electronic message to your doctor???s office to request appointments, renew medications or just ask a question. You can enroll at [email or web address] or register during your next office visit. Disclaimer:?? The information provided is of a general nature and is intended to be used in conjunction with the recommendations and advice of your health care practitioner. ??Every effort has been made to ensure that the information provided is accurate and complete at the time it is provided to you however, as your needs change, or, as new ??information becomes available, different or additional instructions may be required. If you have questions, please consult with your primary care provider or pharmacist, as appropriate. ??This information is not intended to serve as substitution for assessment and evaluation by a qualified health care provider. If you do not have a primary care provider, you may find a [facility] provider by calling [facility] [employer] at [phone]. For information about the plan of care including goals and instructions for your diagnosis, please see the patient education orders section of this document. Patient Education Materials?? The content of this educational material or handout may have been modified, supplemented, or adapted from its original content and format to support your individualized medical care. Patient Care team information Care Team Personnel Name: Zaida Hall RN Position: [facility] RN Member Role: Primary Care Nurse Name: Yuly Vásquez RN Position: [facility] RN Member Role: Primary Care Nurse Name: Alyson Cage NP Position: [facility] PCO Associate Professional Member Role: Primary Care Nurse Address: Address: [address] [place] [address]- Name: Gulshan Moulton RN Position: [facility] RN Member Role: Primary Care Nurse Name: Ga Adkins MD Position: [facility] Primary Care Physician Member Role: PCP Address: Address: [address] [place] [address]- Name: Farnaz Adames Position: [facility] PCO RN Member Role: Lifetime Consulting Physician Name: Sarah Jackson RN Position: [facility] RN Member Role: Primary Care Nurse Name: Rita Edmonds RN Position: [facility] AMB Nurse Member Role: Primary Care Nurse Name: Sumit Salsa RN Position: [facility] RN Member Role: Primary Care Nurse Care Team Related Persons Name: TANIA COYNE Address: [place] [address] Name: ROMERO SOLER Address: home [address] [place] [address]
--- OUTSIDE RECORDS SUMMARY | 2023-04-09 20:20 | XMS_ITS | Continuity of Care Document ---
Author Name Unknown Organization [facility] ter Address [address] [place] [address]- Care Team Providers Care Assistant Project Manager Name Role Phone Lucille KEY, Ga Pollard Primary Care Physician Encounter [facility] Date(s): 07/20/21 - 07/20/[address] [address]- Discharge Disposition: A-D/C Walkout Attending Physician: Not on Staff, Attending MD Admitting Physician: Not on Staff, Admitting MD Referring Physician: Not on Staff, Referring [...] Refuses 1Result Comment: [09/21/2018] [facility] [id number] 2Result Comment: [06/10/2017] [facility]: [id number] 3Result Comment: [09/09/2017] [facility]# [id number] 4Result Comment: [09/09/2017] [facility]# [id number] Medications ALPRAZolam 0.5 mg oral tablet 0.5 mg, 1, tablet, By Mouth, 3 times a day, PRN, Refills 0, Maintenance, for anxiety, 08/05/17 11:11:03 Start Date: 08/05/17 Status: Ordered amLODIPine 10 mg oral tablet 10 mg, 1, tablet, By Mouth, Daily, # 90 tablet, Refills 3, Tot. Refills 3, Maintenance, 02/06/21 15:19:00 EDT, Route to Pharmacy Electronically, [facility], 185.42, cm, 10/15/20 8:52:00 EST, Height Start Date: 02/06/21 Status: Ordered Compression Stockings See Instructions, # 1 each, Maintenance, surgical, thigh high length 20-30 mm Hg, 04/20/20 9:37:00 EDT, Supply Start Date: 04/20/20 Status: Ordered D3-50 oral capsule 1 capsule, By Mouth, Every week, # 12 capsule, 0 Refills, Maintenance, 03/19/21 12:03:00 EDT, [facility], 185.42, cm, 03/08/21 10:27:00 EDT, Height Start Date: 03/19/21 Status: Ordered lisinopril 20 mg oral tablet 20 mg, 1, tablet, By Mouth, Daily, # 90 tablet, Refills 3, Tot. Refills 3, Maintenance, 02/06/21 15:19:00 EDT, Route to Pharmacy Electronically, [facility], 185.42, cm, 10/15/20 8:52:00 EST, Height Start Date: 02/06/21 Status: Ordered metoprolol 50 mg oral tablet, extended release 50 mg, 1, tablet, By Mouth, Daily, # 90 tablet, Refills 3, Tot. Refills 3, Maintenance, 02/06/21 15:18:00 EDT, Route to Pharmacy Electronically, [facility], replaces IR metoprolol, 185.42, cm, [...] 03/01/21 8:55:00 EDT, Route to Pharmacy Electronically, [id number], [facility], 185.42, cm, 10/15/20 8:52:00 EST, Height Start Date: 03/01/21 Status: Ordered Proventil HFA 90 mcg/inh inhalation aerosol with adapter 2, puffs, Inhalation, 4 times a day, PRN, # 25 Gm, Refills 2, Tot. Refills 2, Maintenance, 204:54:00 EST, Aerosol, Route to Pharmacy Electronically, [id number], [facility], 185.42, cm, 05/25/20 6:57:00 ED... [...] D deficiency(Confirmed) Active 1While living in [place] Results Radiology Reports * Exam Date Time Procedure Performing Provider Status 07/20/21 2:10 PM Chest 2 Views Frontal and Lat Oakley Juliet; Alisia (Verified) Notes: (Chest 2 Views Frontal and Lat) Reason For Exam: Chest Pain;Other: RESULT: Chest 2 Views Frontal and Lat Chest 2 Views Frontal and Lat Worsening right-sided pain status post trauma on . COMPARISON: 12/31/2020. CT 01/01/2021. FINDINGS: LINES AND TUBES: None. LUNGS AND PLEURA: Hyperexpanded and clear. No pleural effusion. No pneumothorax. HEART, MEDIASTINUM AND JESSI: Heart is normal in size. Aorta is somewhat tortuous. BONES AND SOFT TISSUES: No acute abnormality. Post ORIF changes multiple right-sided rib fractures. IMPRESSION: No acute abnormality. WSN: [id number] Ordering Physician: Gia Pollack Dictated By: Sy Garcia MD Dictated Date/Time: 07/20/21 2:36 pm Reviewed By: Sy Garcia MD Signed By: Sy Garcia MD Signed Date/Time: 07/20/21 2:36 pm Transcribed By: MANDA Transcribed Date/Time: 07/20/21 2:35 pm Vital Signs Most recent to oldest [Reference Range]: 1 2 Oxygen Saturation [94-100 %] 96 % (07/20/21 5:09 PM) 98 % (07/20/21 1:46 PM) Pulse Rate [55-90 bpm] 86 bpm (07/20/21 5:09 PM) 82 bpm (07/20/21 1:46 PM) Blood Pressure [90-138/55-84 mm Hg] 140/ 98mm Hg *H* (07/20/21 5:09 PM) 132/79mm Hg (07/20/21 1:46 PM) Respiratory Rate [16-30 br/min] 18 br/mi n (07/20/21 5:09 PM) 16 br/min (07/20/21 1:46 PM) Temperature [96.8-100.4 DegF] 98 DegF (07/20/21 5:09 PM) 98.2 DegF (07/20/21 1:46 PM) Mode of Delivery (Oxygen) Room air (07/20/21 5:09 PM) Room air (07/20/21 1:46 PM) Blood pressure sites Arm, left (07/20/21 5:09 PM) Arm, left (07/20/21 1:46 PM) Temperature Route Oral (07/20/21 5:09 PM) Oral (07/20/21 1:46 PM) Social History Social History Type Response Smoking Status Current every day haily rocha; Type: Cigarettes; Tobacco use times per day: 1 PPD now down to 1 pack/week; Number of years: 36; Total pack years: 36; Started at age: 15; entered on: 03/02/17 Sex
--- OUTSIDE RECORDS SUMMARY | 2023-04-09 20:20 | XMS_ITS | Continuity of Care Document ---
Author Name Unknown Organization [facility] Andrzej lt Address [address] [place] [address]- Care Team Providers Care Rigging Slinger Name Role Phone Lucille KEY, Ga Pollard Primary Care Physician [facility] Date(s): 08/20/20 - 09/19/20 [facility] Adult [address] [place] [address]- Allergies, Adverse Reactions, Alerts Substance Reaction Severity [...] Not Given Patient Refuses 1Result Comment: [09/21/2018] [facility] [id number] 2Result Comment: [06/10/2017] [facility]: 54846-217-73 3Result Comment: [09/09/2017] [facility]# [id number] 4Result Comment: [09/09/2017] [facility]# [id number] Medications ALPRAZolam 0.5 mg oral tablet 0.5 [...] Maintenance, 05/15/20 13:00:00 EDT, Tablet, [facility], 185.42, cm, 04/20/20 9:09:00 EDT, [...] 08/20/20 13:10:00 EST, Route to Pharmacy Electronically, [email or web address], 185.42, cm, 05/25/20 6:57:00 [...] 03/12/20 9:30:00 EDT, Route to Pharmacy Electronically, [id number], [facility], 185.42, cm, 03/12/20 8:37:00 EDT, Height Start Date: 03/12/20 Status: Ordered Proventil HFA 90 mcg/inh inhalation aerosol with adapter 2, puffs, Inhalation, 4 times a day, PRN, # 25 Gm, Refills 2, Tot. Refills 2, Maintenance, 204:54:00 EST, Aerosol, Route to Pharmacy Electronically, [id number], [facility], 185.42, cm, 05/25/20 6:57:00 ED... Start Date: 08/02/20 Status: Ordered Trelegy Ellipta inhalation powder 1 puffs, Inhalation, Daily, at the same time every day, # 1 each, 2 Refills, Maintenance, 05/25/20 7:08:00 EDT, Powder, [facility], 185.42, cm, 05/25/20 6:57:00 EDT, [...] Vitamin D deficiency(Confirmed) Active 1While living in [place] Social History Social History Type Response Smoking Status Current every day haily rocha; Type: Cigarettes; Tobacco use times per day: 1 PPD now down to 1 pack/week; Number of years: 36; Total pack years: 36; Started at age: 15; entered on: 03/02/17 Sex
--- OUTSIDE RECORDS SUMMARY | 2023-04-09 20:20 | XMS_ITS | Continuity of Care Document ---
Author Name Unknown Organization [facility] Andrzej lt Address [address] [place] [address]- Care Team Providers Care Vice President Commercial Bank Name Role Phone Ga Adkins MD Primary Care Physician Encounter [facility] Date(s): 03/20/21 - 04/19/21 [facility] Adult [address] [place] [address]- Attending Physician: Ga Adkins MD Allergies, Adverse [...] Not Given Patient Refuses 1Result Comment: [09/21/2018] [facility] [id number] 2Result Comment: [06/10/2017] [facility]: 15337-295-94 3Result Comment: [09/09/2017] [facility]# [id number] 4Result Comment: [09/09/2017] [facility]# [id number] Medications ALPRAZolam 0.5 mg oral tablet 0.5 mg, 1, tablet, By Mouth, 3 times a day, PRN, Refills 0, Maintenance, for anxiety, 08/05/17 11:11:03 Start Date: 08/05/17 Status: Ordered amLODIPine 10 mg oral tablet 10 mg, 1, tablet, By Mouth, Daily, # 90 tablet, Refills 3, Tot. Refills 3, Maintenance, 02/06/21 15:19:00 EDT, Route to Pharmacy Electronically, [facility], 185.42, cm, 10/15/20 8:52:00 EST, Height Start Date: 02/06/21 Status: Ordered Compression Stockings See Instructions, # 1 each, Maintenance, surgical, thigh high length 20-30 mm Hg, 04/20/20 9:37:00 EDT, Supply Start Date: 04/20/20 Status: Ordered D3-50 oral capsule 1 capsule, By Mouth, Every week, # 12 capsule, 0 Refills, Maintenance, 03/19/21 12:03:00 EDT, [facility], 185.42, cm, 03/08/21 10:27:00 EDT, Height Start Date: 03/19/21 Status: Ordered lisinopril 20 mg oral tablet 20 mg, 1, tablet, By Mouth, Daily, # 90 tablet, Refills 3, Tot. Refills 3, Maintenance, 02/06/21 15:19:00 EDT, Route to Pharmacy Electronically, [facility], 185.42, cm, 10/15/20 8:52:00 EST, Height Start Date: 02/06/21 Status: Ordered metoprolol 50 mg oral tablet, extended release 50 mg, 1, tablet, By Mouth, Daily, # 90 tablet, Refills 3, Tot. Refills 3, Maintenance, 02/06/21 15:18:00 EDT, Route to Pharmacy Electronically, [facility], replaces IR metoprolol, 185.42, cm, [...] 03/01/21 8:55:00 EDT, Route to Pharmacy Electronically, [id number], [facility], 185.42, cm, 10/15/20 8:52:00 EST, Height Start Date: 03/01/21 Status: Ordered Proventil HFA 90 mcg/inh inhalation aerosol with adapter 2, puffs, Inhalation, 4 times a day, PRN, # 25 Gm, Refills 2, Tot. Refills 2, Maintenance, 204:54:00 EST, Aerosol, Route to Pharmacy Electronically, [id number], [facility], 185.42, cm, [...]
--- OUTSIDE RECORDS SUMMARY | 2023-04-09 20:20 | XMS_ITS | Continuity of Care Document ---
Author Name Unknown Organization [facility] Andrzej lt Address [address] [place] [address]- Care Team Providers Care Propeller Layout Worker Name Role Phone Lucille KEY, Ga Pollard Primary Care Physician [facility] Date[facility]s): 07/25/21 - 08/24/21 [facility] Adult [address] [place] [address]- Allergies, Adverse Reactions, Alerts Substance Reaction Severity [...] Not Given Patient Refuses 1Result Comment: [09/21/2018] [facility] [id number] 2Result Comment: [06/10/2017] [facility]: [id number] 3Result Comment: [09/09/2017] [facility]# 73822-163-92 4Result Comment: [09/09/2017] [facility]# [id number] Medications ALPRAZolam 0.5 mg oral tablet 0.5 mg, 1, tablet, By Mouth, 3 times a day, PRN, Refills 0, Maintenance, for anxiety, 08/05/17 11:11:03 Start Date: 08/05/17 Status: Ordered amLODIPine 10 mg oral tablet 10 mg, 1, tablet, By Mouth, Daily, # 90 tablet, Refills 3, Tot. Refills 3, Maintenance, 02/06/21 15:19:00 EDT, Route to Pharmacy Electronically, [facility], 185.42, cm, 10/15/20 8:52:00 EST, Height Start Date: 02/06/21 Status: Ordered Compression Stockings See Instructions, # 1 each, Maintenance, surgical, thigh high length 20-30 mm Hg, 04/20/20 9:37:00 EDT, Supply Start Date: 04/20/20 Status: Ordered D3-50 oral capsule 1 capsule, By Mouth, Every week, # 12 capsule, 0 Refills, Maintenance, 03/19/21 12:03:00 EDT, [facility], 185.42, cm, 03/08/21 10:27:00 EDT, Height Start Date: 03/19/21 Status: Ordered lisinopril 20 mg oral tablet 20 mg, 1, tablet, By Mouth, Daily, # 90 tablet, Refills 3, Tot. Refills 3, Maintenance, 02/06/21 15:19:00 EDT, Route to Pharmacy Electronically, [facility], 185.42, cm, 10/15/20 8:52:00 EST, Height Start Date: 02/06/21 Status: Ordered metoprolol 50 mg oral tablet, extended release 50 mg, 1, tablet, By Mouth, Daily, # 90 tablet, Refills 3, Tot. Refills 3, Maintenance, 02/06/21 15:18:00 EDT, Route to Pharmacy Electronically, [facility], replaces IR metoprolol, 185.42, cm, [...] 03/01/21 8:55:00 EDT, Route to Pharmacy Electronically, [id number], [facility], 185.42, cm, 10/15/20 8:52:00 EST, Height Start Date: 03/01/21 Status: Ordered Proventil HFA 90 mcg/inh inhalation aerosol with adapter 2, puffs, Inhalation, 4 times a day, PRN, # 25 Gm, Refills 2, Tot. Refills 2, Maintenance, :54:00 EST, Aerosol, Route to Pharmacy Electronically, [id number], [facility], 185.42, cm, [...] Vitamin D deficiency(Confirmed) Active 1While living in [place] Social History Social History Type Response Smoking Status Current every day haily rocha; Type: Cigarettes; Tobacco use times per day: 1 PPD now down to 1 pack/week; Number of years: 36; Total pack years: 36; Started at age: 15; entered on: 03/02/17 Sex
--- OUTSIDE RECORDS SUMMARY | 2023-04-09 20:20 | XMS_ITS | Continuity of Care Document ---
Author Name Unknown Organization [facility] Andrzej lt Address [address] [place] [address]- Care Team Providers Care Assembler Fluorescent Lights Name Role Phone Lucille KEY, Ga Pollard Primary Care Physician Encounter [facility] Date(s): 05/13/21 - 06/12/21 [facility] Adult [address] [place] [address]- Allergies, Adverse Reactions, Alerts Substance Reaction Severity [...] Comment: [09/21/2018] [facility] [address]-02 2Result Comment: [06/10/2017] [facility]: [id number] 3Result Comment: [09/09/2017] [facility]# [id number] 4Result Comment: [09/09/2017] [facility]# [id number] Medications ALPRAZolam 0.5 mg oral tablet 0.5 mg, 1, tablet, By Mouth, 3 times a day, PRN, Refills 0, Maintenance, for anxiety, 08/05/17 11:11:03 Start Date: 08/05/17 Status: Ordered amLODIPine 10 mg oral tablet 10 mg, 1, tablet, By Mouth, Daily, # 90 tablet, Refills 3, Tot. Refills 3, Maintenance, 02/06/21 15:19:00 EDT, Route to Pharmacy Electronically, [facility], 185.42, cm, 10/15/20 8:52:00 EST, Height Start Date: 02/06/21 Status: Ordered Compression Stockings See Instructions, # 1 each, Maintenance, surgical, thigh high length 20-30 mm Hg, 04/20/20 9:37:00 EDT, Supply Start Date: 04/20/20 Status: Ordered D3-50 oral capsule 1 capsule, By Mouth, Every week, # 12 capsule, 0 Refills, Maintenance, 03/19/21 12:03:00 EDT, [facility], 185.42, cm, 03/08/21 10:27:00 EDT, Height Start Date: 03/19/21 Status: Ordered lisinopril 20 mg oral tablet 20 mg, 1, tablet, By Mouth, Daily, # 90 tablet, Refills 3, Tot. Refills 3, Maintenance, 02/06/21 15:19:00 EDT, Route to Pharmacy Electronically, [facility], 185.42, cm, 10/15/20 8:52:00 EST, Height Start Date: 02/06/21 Status: Ordered metoprolol 50 mg oral tablet, extended release 50 mg, 1, tablet, By Mouth, Daily, # 90 tablet, Refills 3, Tot. Refills 3, Maintenance, 02/06/21 15:18:00 EDT, Route to Pharmacy Electronically, [facility], replaces IR metoprolol, 185.42, cm, [...] 03/01/21 8:55:00 EDT, Route to Pharmacy Electronically, [id number], [facility], 185.42, cm, 10/15/20 8:52:00 EST, Height Start Date: 03/01/21 Status: Ordered Proventil HFA 90 mcg/inh inhalation aerosol with adapter 2, puffs, Inhalation, 4 times a day, PRN, # 25 Gm, Refills 2, Tot. Refills 2, Maintenance, 204:54:00 EST, Aerosol, Route to Pharmacy Electronically, [id number], [facility], 185.42, cm, [...]
--- OUTSIDE RECORDS SUMMARY | 2023-04-09 20:20 | XMS_ITS | Continuity of Care Document ---
Author Name Unknown Organization [facility] Andrzej lt Address [address] [place] [address]- Care Team Providers Care Railroad Brake Operator Name Role Phone Lucille KEY, Ga Pollard Primary Care Physician [place] [facility] [place] 03/01/21 - 03/31/21 [facility] Adult [address] [place] [address]- Allergies, Adverse Reactions, Alerts Substance Reaction Severity [...] Given Patient Refuses 1Result Comment: [09/21/2018] [facility] [id number] 2Result Comment: [06/10/2017] [facility]: 25175-355-23 3Result Comment: [09/09/2017] [facility]# [id number] 4Result Comment: [09/09/2017] [facility]# [id number] Medications ALPRAZolam 0.5 mg oral tablet 0.5 mg, 1, tablet, By Mouth, 3 times a day, PRN, Refills 0, Maintenance, for anxiety, 08/05/17 11:11:03 Start Date: 08/05/17 Status: Ordered amLODIPine 10 mg oral tablet 10 mg, 1, tablet, By Mouth, Daily, # 90 tablet, Refills 3, Tot. Refills 3, Maintenance, 02/06/21 15:19:00 EDT, Route to Pharmacy Electronically, [facility], 185.42, cm, 10/15/20 8:52:00 EST, Height Start Date: 02/06/21 Status: Ordered Compression Stockings See Instructions, # 1 each, Maintenance, surgical, thigh high length 20-30 mm Hg, 04/20/20 9:37:00 EDT, Supply Start Date: 04/20/20 Status: Ordered D3-50 oral capsule 1 capsule, By Mouth, Every week, # 12 capsule, 0 Refills, Maintenance, 03/19/21 12:03:00 EDT, [facility], 185.42, cm, 03/08/21 10:27:00 EDT, Height Start Date: 03/19/21 Status: Ordered lisinopril 20 mg oral tablet 20 mg, 1, tablet, By Mouth, Daily, # 90 tablet, Refills 3, Tot. Refills 3, Maintenance, 02/06/21 15:19:00 EDT, Route to Pharmacy Electronically, [facility], 185.42, cm, 10/15/20 8:52:00 EST, Height Start Date: 02/06/21 Status: Ordered metoprolol 50 mg oral tablet, extended release 50 mg, 1, tablet, By Mouth, Daily, # 90 tablet, Refills 3, Tot. Refills 3, Maintenance, 02/06/21 15:18:00 EDT, Route to Pharmacy Electronically, [facility], replaces IR metoprolol, 185.42, cm, [...] 03/01/21 8:55:00 EDT, Route to Pharmacy Electronically, [id number], [facility], 185.42, cm, 10/15/20 8:52:00 EST, Height Start Date: 03/01/21 Status: Ordered Proventil HFA 90 mcg/inh inhalation aerosol with adapter 2, puffs, Inhalation, 4 times a day, PRN, # 25 Gm, Refills 2, Tot. Refills 2, Maintenance, 204:54:00 EST, Aerosol, Route to Pharmacy Electronically, [id number], [facility], 185.42, cm, [...]
--- OUTSIDE RECORDS SUMMARY | 2023-04-09 20:20 | XMS_ITS | Continuity of Care Document ---
Author Name Unknown Organization [facility] Andrzej lt Address [address] [place] [address]- Care Team Providers Care Sample Clerk Name Role Phone Lucille KEY, Ga Pollard Primary Care Physician [phone] [facility] Date(s): 04/16/20 - 05/16/20 [facility] Adult [address] [place] [address]- [facility] Allergies, Adverse Reactions, Alerts Substance [...] [facility][NOTE 3] [id number] 2Result Comment: [06/10/2017] [facility][NOTE 3]: [id number] 3Result Comment: [09/09/2017] [facility]# [id number] 4Result Comment: [09/09/2017] [facility]# [id number] Medications acetaminophen-oxyCODONE 325 mg-5 mg oral tablet [...] 06/28/19 8:28:20 EDT, Route to Pharmacy Electronically, [id number], [facility] Start Date: 06/28/19 Status: Ordered [...] 06/28/19 8:28:42 EDT, Route to Pharmacy Electronically, [id number], [facility] Start Date: 06/28/19 Status: Ordered metoprolol 50 mg oral tablet, extended release 50 mg, 1, tablet, By Mouth, Daily, # 90 tablet, Refills 3, Tot. Refills 3, Maintenance, 06/28/19 8:29:10 EDT, Route to Pharmacy Electronically, [id number], [facility], replaces IR [...] 03/12/20 9:30:00 EDT, Route to Pharmacy Electronically, [id number], [facility], 185.42, cm, [...]
--- OUTSIDE RECORDS SUMMARY | 2023-04-09 20:20 | XMS_ITS | Continuity of Care Document ---
Author Name Unknown Organization [facility] Andrzej lt Address [address] [place] [address]- Care Team Providers Care Occasional Caregiver Name Role Phone Lucille KEY, Ga Pollard Primary Care Physician Encounter [facility] Date(s): 02/26/21 - 03/28/21 [facility] Adult [address] [place] [address]- Allergies, Adverse Reactions, Alerts Substance Reaction Severity [...] Not Given Patient Refuses 1Result Comment: [09/21/2018] [facility] [id number] 2Result Comment: [06/10/2017] [facility]: [id number] 3Result Comment: [09/09/2017] [facility]# [id number] 4Result Comment: [09/09/2017] [facility]# [id number] Medications ALPRAZolam 0.5 mg oral tablet 0.5 mg, 1, tablet, By Mouth, 3 times a day, PRN, Refills 0, Maintenance, for anxiety, 08/05/17 11:11:03 Start Date: 08/05/17 Status: Ordered amLODIPine 10 mg oral tablet 10 mg, 1, tablet, By Mouth, Daily, # 90 tablet, Refills 3, Tot. Refills 3, Maintenance, 02/06/21 15:19:00 EDT, Route to Pharmacy Electronically, [facility], 185.42, cm, 10/15/20 8:52:00 EST, Height Start Date: 02/06/21 Status: Ordered Compression Stockings See Instructions, # 1 each, Maintenance, surgical, thigh high length 20-30 mm Hg, 04/20/20 9:37:00 EDT, Supply Start Date: 04/20/20 Status: Ordered D3-50 oral capsule 1 capsule, By Mouth, Every week, # 12 capsule, 0 Refills, Maintenance, 03/19/21 12:03:00 EDT, [facility], 185.42, cm, 03/08/21 10:27:00 EDT, Height Start Date: 03/19/21 Status: Ordered lisinopril 20 mg oral tablet 20 mg, 1, tablet, By Mouth, Daily, # 90 tablet, Refills 3, Tot. Refills 3, Maintenance, 02/06/21 15:19:00 EDT, Route to Pharmacy Electronically, [facility], 185.42, cm, 10/15/20 8:52:00 EST, Height Start Date: 02/06/21 Status: Ordered metoprolol 50 mg oral tablet, extended release 50 mg, 1, tablet, By Mouth, Daily, # 90 tablet, Refills 3, Tot. Refills 3, Maintenance, 02/06/21 15:18:00 EDT, Route to Pharmacy Electronically, [facility], replaces IR metoprolol, 185.42, cm, [...] 03/01/21 8:55:00 EDT, Route to Pharmacy Electronically, [id number], [facility], 185.42, cm, 10/15/20 8:52:00 EST, Height Start Date: 03/01/21 Status: Ordered Proventil HFA 90 mcg/inh inhalation aerosol with adapter 2, puffs, Inhalation, 4 times a day, PRN, # 25 Gm, Refills 2, Tot. Refills 2, Maintenance, 204:54:00 EST, Aerosol, Route to Pharmacy Electronically, [id number], [facility], 185.42, cm, [...]
--- OUTSIDE RECORDS SUMMARY | 2023-04-09 20:21 | XMS_ITS | Continuity of Care Document ---
Author Name Unknown Organization [facility] Address [address] [place] [address]- Care Team Providers Care Car Checker Name Role Phone Not on Staff, PCP Primary Care Physician Unavail able Encounter [facility] Date(s): 10/17/22 - 11/16/22 [facility] [address] [place] [address]- Attending Physician: Chloe Olvera Admitting Physician: Admtr, Chloe Referring Physician: Admtr, Ar8 Allergies, Adverse Reactions, [...] Refuses 1Result Comment: [09/21/2018] [facility] [id number] 2Result Comment: [06/10/2017] [facility]: [id number] 3Result Comment: [09/09/2017] [facility]# [id number] 4Result Comment: [09/09/2017] [facility]# [id number] Medications amLODIPine 10 mg oral tablet 10 mg, 1, tablet, By Mouth, Daily, # 90 tablet, Refills 3, Tot. Refills 3, Maintenance, 08/08/22 10:26:00 EST, Route to Pharmacy Electronically, [facility], 186, cm, 08/08/22 9:54:00 EST, Height, 66, kg, 07/10/22 17:36:00 EDT, Dry Weight Start Date: 08/08/22 Stop Date: 08/29/22 Status: Ordered metoprolol 50 mg oral tablet, extended release 50 mg, 1, tablet, By Mouth, Daily, # 90 tablet, Refills 3, Tot. Refills 3, Maintenance, 08/08/22 10:26:00 EST, Route to Pharmacy Electronically, [facility], replaces IR metoprolol, 186, cm, 08/08/22 9:54:00 EST, Height, 66, kg, 07/10/22... Start Date: 08/08/22 Stop Date: 08/29/22 Status: Ordered pregabalin 25 mg oral capsule 1 capsule = 25 mg, By Mouth, Daily at bedtime, # 30 capsule, 2 Refills, Maintenance, 08/08/22 10:30:00 EST, [facility], Partial fill upon patient request [...] D deficiency Confirmed Active 1While living in [place] Social History Social History Type Response Smoking Status Current every day sm oker; Type: Cigarettes; Tobacco use times per day: 1 PPD now down to 1 pack/week; Number of years: 36; Total pack years: 36; Started at age: 15; entered on: 03/02/17 Sex Patient Care team information Care Team Personnel Name: Zaida Hall RN Position: [facility] RN Member Role: Primary Care Nurse Name: Yuly Vásquez RN Position: [facility] RN Member Role: Primary Care Nurse Name: Alyson Cage NP Position: [facility] PCO Associate Professional Member Role: Primary Care Nurse Address: Address: [address] [place] [address] Name: Gulshan Moulton RN Position: [facility] RN Member Role: Primary Care Nurse Name: Farnaz Adames Position: [facility] PCO RN Member Role: Lifetime Consulting Physician Name: Not on Staff, PCP Position: [facility] Physician (General Medicine) Member Role: PCP Name: Sarah Jackson RN Position: [facility] RN Member Role: Primary Care Nurse Name: Rita Edmonds RN Position: [facility] AMB Nurse Member Role: Primary Care Nurse Name: Sumit Salas RN Position: [facility] RN Member Role: Primary Care Nurse Care Team Related Persons Name: TANIA COYNE Address: [place] [address] Name: ROMERO SOLER Address: [address] [address]
--- OUTSIDE RECORDS SUMMARY | 2023-04-09 20:21 | XMS_ITS | Continuity of Care Document ---
Author Name Unknown Organization [facility] ter Address [address] [place] [address]- Care Team Providers Care Welder Pipe Making Name Role Phone Not on Staff, PCP Primary Care Physician Unavail able [facility]counter [facility] Date(s): 02/20/23 - 02/23/[address] [address]- Encounter Diagnosis Suicidal ideation(Final) - 02/20/23 Right ankle pain(Final) - 02/20/23 Fibula fracture(Final) - 02/20/23 Alcohol use disorder, moderate, dependence(Final) - 02/20/23 Discharge Disposition: A-D/C Home Attending Physician: Noah Baca MD Admitting Physician: Noah Baca MD Referring Physician: Richie Pulido MD Allergies, Adverse Reactions, Alerts Substance Reaction [...] Given Patient Refuses 1Result Comment: [09/21/2018] [facility] [id number] 2Result Comment: [06/10/2017] [facility]: [id number] 3Result Comment: [09/09/2017] [facility]# [id number] 4Result Comment: [09/09/2017] [facility]# [id number] Medications amLODIPine 10 mg oral tablet 1 tablet = 10 mg, By Mouth, Daily, # 30 tablet, 0 Refills, Maintenance, 02/20/23 15:32:00 EDT, Tablet, Partial fill upon patient request if the prescription is for a schedule II opioid drug. Start Date: 02/20/23 Status: Ordered amLODIPine 10 mg oral tablet 10 mg, 1, tablet, By Mouth, Daily, # 90 tablet, Refills 3, Tot. Refills 3, Maintenance, 08/08/22 10:26:00 EST, Route to Pharmacy Electronically, [facility], 186, cm, 08/08/22 9:54:00 EST, Height, 66, kg, 07/10/22 17:36:00 EDT, Dry Weight Start Date: 08/08/22 Stop Date: 08/29/22 Status: Ordered metoprolol 50 mg oral tablet, extended release 50 mg, 1, tablet, By Mouth, Daily, # 90 tablet, Refills 3, Tot. Refills 3, Maintenance, 08/08/22 10:26:00 EST, Route to Pharmacy Electronically, [facility], replaces IR metoprolol, 186, cm, 08/08/22 9:54:00 EST, Height, 66, kg, 07/10/22... Start Date: 08/08/22 Stop Date: 08/29/22 Status: Ordered Metoprolol Succinate ER 50 mg oral tablet, extended release 1 tablet = 50 mg, By Mouth, Daily, # 30 tablet, 0 Refills, Maintenance, 02/20/23 15:32:00 EDT, ER Tablet, Partial fill upon patient request if the prescription is for a schedule II opioid drug. Start Date: 02/20/23 Status: Ordered pregabalin 25 mg oral capsule 1 capsule = 25 mg, By Mouth, Daily at bedtime, # 30 capsule, 2 Refills, Maintenance, 08/08/22 10:30:00 [facility], [facility], Partial fill [...] D deficiency Confirmed Active 1While living in [place] Results Radiology Reports * Exam Date Time Procedure Performing Provider Status 02/20/23 12:[address] Head/Brain W/O Contrast Christine Tamez; Auth (Verified) Notes: (CT Head/Brain W/O Contrast) Reason For Exam: Headache(s) RESULT: CT Head/Brain W/O Contrast CT Head/Brain W/O Contrast INDICATION: Hx of Present Illness: right ankle break 4 6 pt lost primary and was without pain control pt started drinking excessively is now hearing and seeing things that arent there and hearing music in his head x 1 month has never had anytbing like this before; Reason: Headache(s); Clinical Question(s): Subarachnoid Hemorrhage; Order Comment: TECHNIQUE: Noncontrast head CT using axial technique and reconstructed in axial and coronal planes.Iterative reconstruction techniques are used to optimize dose and image quality. CTDIvol Head: 46.20 mGy, DLP Head: 773 mGy*cm. COMPARISON: Head CT dated July 10, 2022. FINDINGS: Emery Wheel Worker view findings, lines and tubes: None. BRAIN AND EXTRA-AXIAL SPACES: No parenchymal hemorrhage, midline shift, or mass effect. Griffin-white matter differentiation is wellpreserved. No acute infarct. Mild prominence of the ventricles and sulci consistent with parenchymal volume loss. Cavum septum pellucidum et vergae noted, a normal anatomic variant. Mild low-density white matter changes. Focal hypodensity in the right basal ganglia may represent dilated perivascular space or tiny chronic lacunar infarction, unchanged. No subarachnoid hemorrhage. No subdural or epidural collection. CALVARIUM, SKULL BASE, AND SOFT TISSUES: No fractures or suspicious bony lesions. The paranasal sinuses and mastoid air cells are clear. Visualized orbits and globes are intact. The extracranial soft tissues are unremarkable. IMPRESSION: No acute intracranial pathology. WSN: [id number] Ordering Physician: Richie Pulido Dictated By: Cuong Reyes MD Dictated Date/Time: 02/20/23 12:46 p Reviewed By: Cuong Reyes MD Signed By: Cuong Reyes MD Signed Date/Time: 02/20/23 12:46 pm Transcribed By: MANDA Transcribed Date/Time: 02/20/23 12:44 pm * Exam Date Time Procedure Performing Provider Status 02/20/23 12:18 PM Ankle Min 3 Views Right Eren Reyes; Alisia (Verified) Notes: (Ankle Min 3 Views Right) Reason For Exam: Pain RESULT: Ankle Min 3 Views Right Ankle Min 3 Views Right Hx of Present Illness: Fracture. COMPARISON: None. FINDINGS: Essentially nondisplaced spiral fracture through the distal fibula extending to the level of the tibiotalar joint. Lucency through the distal most aspect of the medial malleolus is suspicious for nondisplaced fracture. Ankle mortise is maintained. Normal tibiotalar joint alignment. Moderate lateral soft tissue swelling. IMPRESSION: Essentially nondisplaced spiral fracture through the distal fibula extends level of the tibiotalar joint. Fracture is subacute appearance. Nondisplaced fracture distal most aspect of the medial malleolus is suspected. WSN: [id number] Ordering Physician: Anayeli Kuhn Dictated By: Franklin Menjivar MD Dictated Date/Time: 02/20/23 12:28 p Reviewed By: Franklin Menjivar MD Signed By: Franklin Menjivar MD Signed Date/Time: 02/20/23 12:28 pm Transcribed By: MANDA Transcribed Date/Time: 02/20/23 12:26 pm Vital Signs Most recent to oldest [Reference Range]: 1 2 3 Oxygen Saturation [94-100 %] 99 % (02/23/23 5:19 AM) 95 % (02/23/23 2:20 AM) 99 % (02/22/23 10:46 PM) Pulse Rate [55-90 bpm] 63 bpm (02/23/23 5:19 AM) 87 bpm (02/23/23 2:20 AM) 91 bpm *H* (02/22/23 10:46 PM) Blood Pressure [90-138/55-84 mm Hg] 109/45mm Hg (02/23/23 5:19 AM) 120/88mm Hg (02/23/23 2:20 AM) 101/78mm Hg (02/22/23 10:46 PM) Respiratory Rate [16-30 br/min] 20 br/min (02/23/23 5:19 AM) 20 br/min (02/23/23 2:20 AM) 18 br/min (02/22/23 10:46 PM) Temperature [96.8-100.4 DegF] 97.8 DegF (02/23/23 5:19 AM) 98.1 DegF (02/23/23 2:20 AM) 98.4 DegF (02/22/23 8:24 AM) Mode of Delivery (Oxygen) Room air (02/23/23 5:19 AM) Room air (02/23/23 2:20 AM) Room air (02/22/23 10:46 PM) Blood pressure sites Arm, right (02/23/23 5:19 AM) Arm, right (02/23/23 2:20 AM) Arm, right (02/22/23 8:24 AM) Temperature Route Oral (02/23/23 5:19 AM) Oral (02/23/23 2:20 AM) Oral (02/22/23 8:24 AM) Social History Social History Type Response Smoking Status Current every day sm oker; Type: Cigarettes; Tobacco use times per day: 1 PPD now down to 1 pack/week; Number of years: 36; Total pack years: 36; Started at age: 15; entered on: 03/02/17 Sex Hospital Progress note * Event Display: Progress Note Hospital Authored Date: [id number] Note * Anayeli Kuhn DO: PERFORM Event Display: Patient Education Leaflets Authored Date: [id number] Physical Therapy Referral ?? 250 ?? This page is FOR PRESCRIBERS Only, ? DO NOT GIVE TO THE PATIENT? Physical Therapy Referral Program for Management of Pain In an effort to reduce narcotic use, some of our ED patients will benefit from a direct [facility].?? [facility] will see INSURED patients and has a system in place to avoid sending follow up paperwork to the ED prescribers.? Note: Non-[facility] physical therapy services will probably NOT be able to handle ED generated PT referrals. ?? Patients should still follow up with their PCP as soon as possible regarding their ongoing care. Inform patients that [facility] will discuss insurance when they call.?? Some insurance plans limit the amount of PT a patient can receive each year. ?? Complete the FIRST PAGE of the patient???s referral sheet. [place] or write in diagnosis Modify the timing for treatment, if needed List any major precautions (i.e.?? Non-weight bearing limb), if needed Sign, date and print your name at the bottom ? Physical Therapy Referral Form Patient Instructions: You are being referred to physical therapy.?? This form is your referral and MUST be brought to your appointment. You need to call to set up your appointment. ?? This form can be used at any [facility] Physical Therapy location.?? A list of locations is attached.?? 1)?? DIAGNOSIS/ICD-10 ([place] one) Cervicalgia: M54.2 ? Strain of muscle, fascia and tendon at neck level: S16.1XXD? Radiculopathy, cervical region: M54.12? Mid back pain: M54.9 ? Low back pain:?? M54.5 Strain of muscle, fascia and tendon of lower back: S39.012D Radiculopathy, lumbosacral region: M54.17 Other:? 2)? [? ]? Evaluate and Treat 2 Times/Week for 4 weeks as needed [? ]?Other: 3)? [? ]? No Precautions [? ]?Precautions: ?? I hereby certify these services as medically necessary for the patient???s plan of care. Physician???s Signature Date Physician Name (printed)? Locations You can call any location below.?? Tell them you were seen in a [facility] Emergency Department and have a referral form.?? Remember to bring your referral form with you to the appointment. DAVID Navarro [id number]? DAVID Ramos [address] [facility], [address]? [address] [place] [address] Road Phone: [phone]? [place] [address]? [place] [address]? [address] ? [place] [address]? [place] [address]? [address] ? [place] [address]? [place] [address]? [address]? [facility] ? [address] ? XR Ankle - right GE 3 Views * BHSPowertracy , CIS S: POLLY Menjivar MD, Franklin W: VERIFY Event Display: Result: Authored Date: Ankle Min 3 Views Right Hx of Present Illness: Fracture. COMPARISON: None. FINDINGS: Essentially nondisplaced spiral fracture through the distal fibula extending to the level of the tibiotalar joint. Lucency through the distal most aspect of the medial malleolus is suspicious for nondisplaced fracture. Ankle mortise is maintained. Normal tibiotalar joint alignment. Moderate lateral soft tissue swelling. IMPRESSION: Essentially nondisplaced spiral fracture through the distal fibula extends level of the tibiotalar joint. Fracture is subacute appearance. Nondisplaced fracture distal most aspect of the medial malleolus is suspected. WSN: [id number] Ordering Physician: Anayeli Kuhn Dictated By: Franklin Menjivar MD Dictated Date/Time: 02/20/23 12:28 p Reviewed By: Franklin Menjivar MD Signed By: Franklin Menjivar MD Signed Date/Time: 02/20/23 12:28 pm Transcribed By: MANDA Transcribed Date/Time: 02/20/23 12:[address] Head WO contrast * BHSPowerscribe , CIS S: TRANSCRIFRANCO Reyes MD, Cuong García: VERIFY Event Display: Result: Authored Date: [id number] CT Head/Brain W/O Contrast INDICATION: Hx of Present Illness: right ankle break 4 6 pt lost primary and was without pain control pt started drinking excessively is now hearing and seeing things that arent there and hearing music in his head x 1 month has never had anytbing like this before; Reason: Headache(s); Clinical Question(s): Subarachnoid Hemorrhage; Order Comment: TECHNIQUE: Noncontrast head CT using axial technique and reconstructed in axial and coronal planes.Iterative reconstruction techniques are used to optimize dose and image quality. CTDIvol Head: 46.20 mGy, DLP Head: 773 mGy*cm. COMPARISON: Head CT dated July 10, 2022. FINDINGS: Emery Wheel Worker view findings, lines and tubes: None. BRAIN AND EXTRA-AXIAL SPACES: No parenchymal hemorrhage, midline shift, or mass effect. Griffin-white matter differentiation is wellpreserved. No acute infarct. Mild prominence of the ventricles and sulci consistent with parenchymal volume loss. Cavum septum pellucidum et vergae noted, a normal anatomic variant. Mild low-density white matter changes. Focal hypodensity in the right basal ganglia may represent dilated perivascular space or tiny chronic lacunar infarction, unchanged. No subarachnoid hemorrhage. No subdural or epidural collection. CALVARIUM, SKULL BASE, AND SOFT TISSUES: No fractures or suspicious bony lesions. The paranasal sinuses and mastoid air cells are clear. Visualized orbits and globes are intact. The extracranial soft tissues are unremarkable. IMPRESSION: No acute intracranial pathology. WSN: [id number] Ordering Physician: Richie Pulido Dictated By: Cuong Reyes MD Dictated Date/Time: 02/20/23 12:46 p Reviewed By: Cuong Reyes MD Signed By: Cuong Reyes MD Signed Date/Time: 02/20/23 12:46 pm Transcribed By: MANDA Transcribed Date/Time: 02/20/23 12:44 pm Patient Care team information Care Team Personnel Name: Zaida Hall RN Position: [facility] RN Member Role: Primary Care Nurse Name: Yuly Vásquez RN Position: [facility] RN Member Role: Primary Care Nurse Name: Alyson Cage NP Position: [facility] PCO Associate Professional Member Role: Primary Care Nurse Address: Address: [address] [place] [address]- Name: Gulshan Moulton RN Position: [facility] ED RN W/OE and Tasks Member Role: Primary Care Nurse Name: Farnaz Adames Position: [facility] AMB Nurse Member Role: Lifetime Consulting Physician Name: Not on Staff, PCP Position: [facility] Physician (General Medicine) Member Role: PCP Name: Sarah Jackson RN Position: [facility] RN Member Role: Primary Care Nurse Name: Rita Edmonds RN Position: [facility] AMB Nurse Member Role: Primary Care Nurse Name: Sumit Salas RN Position: [facility] RN Member Role: Primary Care Nurse [facility] Attending Position: [facility] ED Attendings Patient Name: Thao Canas RN Position: [facility] ED RN W/OE and Tasks Member Role: Patient Care Provider Name: Crista Mo RN Position: [facility] ED RN W/OE and Tasks Member Role: Patient Care Provider Name: Noah Baca MD Position: [facility] ED Medicine MD Member Role: ED Attending Physician Address: Address: [address] [place] [address] Palliative [place] [address]- [place] Name: Sagar Ritchie Position: [facility] ED TA [facility] Care Team Related Persons Name: TANIA COYNE Address: [place] [address] Name: ROMERO SOLER Address: home [address] [place] [address]
--- OUTSIDE RECORDS SUMMARY | 2023-04-09 20:21 | XMS_ITS | Continuity of Care Document ---
Author Name Unknown Organization [facility] Andrzej lt Address [address] [place] [address]- Care Team Providers Care Body Hanger Name Role Phone Lucille KEY, Ga Pollard Primary Care Physician Encounter 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 Attending Physician: Anum Leung Referring Physician: Avtar Hernández MD Allergies, Adverse Reactions, Alerts Substance Reaction [...] Adult Vaccine 03/10/17 Given pneumococcal 23-valent vaccine 6/7/17 Given Not Given Vaccine Date Status Refusal Reason pneumococcal 23-valent vaccine 10/23/16 Not Given Patient Refuses 1Result Comment: [09/21/2018] [facility] [id number] 2Result Comment: [06/10/2017] [facility]: [id number] 3Result Comment: [09/09/2017] [facility]# [id number] 4Result Comment: [09/09/2017] [facility]# [id number] Medications acetaminophen-HYDROcodone 325 mg-5 mg oral tablet 1 tablet, By Mouth, 3 times a day, PRN for severe pain, # 18 tablet, 0 Refills, Maintenance, 07/30/22 10:35:00 EST, Tablet, [facility], Partial fill upon patient request if the prescription is for a schedule II opioid drug., 1 tablet By... Start Date: 07/30/22 Stop Date: 08/04/22 Status: Ordered ALPRAZolam 0.5 mg oral tablet 0.5 mg, 1, tablet, By Mouth, 3 times a day, PRN, Refills 0, Maintenance, for anxiety, 08/05/17 11:11:03 Start Date: 08/05/17 Status: Ordered amLODIPine 10 mg oral tablet 10 mg, 1, tablet, By Mouth, Daily, APPOINTMENT NEEDED FOR ADDITIONAL REFILLS, # 21 tablet, Refills 0, Tot. Refills 0, Maintenance, 07/15/22 9:38:00 EDT, Route to Pharmacy Electronically, [facility], 186, cm, 07/15/22 3:47:00 EDT, [...] 07/15/22 9:39:00 EDT, Route to Pharmacy Electronically, [facility], Partial fill upon patient request if the prescription is for a schedule II opioid... Start Date: 07/15/22 Status: Ordered gabapentin 300 mg oral capsule 300 mg, 1, capsule, By Mouth, 3 times a day, # 90 capsule, Refills 0, Tot. Refills 0, Maintenance, 07/15/22 9:39:00 EDT, Route to Pharmacy Electronically, [facility], Partial fill upon patient request if the prescription is for a schedul... Start Date: 07/15/22 Status: Ordered metoprolol 50 mg oral tablet, extended release 50 mg, 1, tablet, By Mouth, Daily, APPOINTMENT NEEDED FOR ADDITIONAL REFILLS, # 21 tablet, Refills 0, Tot. Refills 0, Maintenance, 07/15/22 9:38:00 EDT, Route to Pharmacy Electronically, [facility], replaces IR metoprolol, 186, cm, 07/15... [...] 03/01/21 8:55:00 EDT, Route to Pharmacy Electronically, [id number], [facility], 185.42, cm, 10/15/20 8:52:00 EST, Height Start Date: 03/01/21 Status: Ordered Proventil HFA 90 mcg/inh inhalation aerosol with adapter 2, puffs, Inhalation, 4 times a day, PRN, # 25 Gm, Refills 2, Tot. Refills 2, Maintenance, 07/15/2213:15:00 EDT, Aerosol, Route to Pharmacy Electronically, [id number], [facility], 186, cm, 07/15/22 3:47:00 EDT,... Start Date: 07/15/22 Status: Ordered Problem List Condition Confirmation Course [...] D deficiency Confirmed Active 1While living in [place] Diagnosis Diagnosis Type Effective Dates Health Status Clinical Service Informant Alcohol use Discharge Diagnosis 07/30/22 Leg swelling Discharge Diagnosis 07/30/22 Lower extremity pain Discharge Diagnosis 07/30/22 Anxious depression Discharge Diagnosis 07/30/22 Vital Signs Most recent to oldest [Reference Range]: 1 Height 186 cm (07/30/22 9:49 AM) Oxygen Saturation [94-100 %] 99 % (07/30/22 9:49 AM) Pulse Rate [55-90 bpm] 84 bpm (07/30/22 9:49 AM) Blood Pressure [90-138/55-84 mm Hg] 113/ 69mm Hg (07/30/22 9:49 AM) Mode of Delivery (Oxygen) Room air (07/30/22 9:49 AM) Blood pressure sites Arm, right (07/30/22 9:49 AM) Social History Social History Type Response Smoking Status Current every day sm oker; Type: Cigarettes; Tobacco use times per day: 1 PPD now down to 1 pack/week; Number of years: 36; Total pack years: 36; Started at age: 15; entered on: 03/02/17 Sex Patient Care team information Care Team Personnel Name: Zaida Hall RN Position: [facility] RN Member Role: Primary Care Nurse Name: Yuly Vásquez RN Position: [facility] RN Member Role: Primary Care Nurse Name: Alyson Cage NP Position: [facility] PCO Associate Professional Member Role: Primary Care Nurse Address: Address: [address] [place] [address]- [place] Name: Kenney DAS, Gulshan Novak Position: [facility] RN Member Role: Primary Care Nurse Name: Ga Adkins MD Position: [facility] Primary Care Physician Member Role: PCP Address: Address: [address] [place] [address]- [place] Name: Farnaz Adames Position: [facility] PCO RN Member Role: Lifetime Consulting Physician Name: Sarah Jackson RN Position: [facility] RN Member Role: Primary Care Nurse Name: Rita Edmonds RN Position: [facility] AMB Nurse Member Role: Primary Care Nurse Name: Sumit Salas RN Position: [facility] RN Member Role: Primary Care Nurse Care Team Related Persons Name: TANIA COYNE Address: [place] [address] Name: ROMERO SOLER Address: home [facility] [place] [address]
--- OUTSIDE RECORDS SUMMARY | 2023-04-09 20:21 | XMS_ITS | Continuity of Care Document ---
Author Name Unknown Organization [facility] Andrzej lt Address [address] [place] [address]- Care Team Providers Care Cleaner And Dyer Name Role Phone Lucille KEY, Ga Pollard Primary Care Physician [phone] [facility] Date(s): 05/11/20 - 06/10/20 [facility] Adult [address] [place] [address]- [facility] Allergies, Adverse Reactions, Alerts Substance Reaction [...] Given Patient Refuses 1Result Comment: [09/21/2018] [facility] [id number] 2Result Comment: [06/10/2017] [facility]: [id number] 3Result Comment: [09/09/2017] [facility]# [id number] 4Result Comment: [09/09/2017] [facility]# [id number] Medications ALPRAZolam 0.5 mg oral tablet 0.5 mg, 1, tablet, By Mouth, 3 times a day, PRN, Refills 0, Maintenance, for anxiety, 08/05/17 11:11:03 Start Date: 08/05/17 Status: Ordered amLODIPine 10 mg oral tablet 10 mg, 1, tablet, By Mouth, Daily, # 90 tablet, Refills 3, Tot. Refills 3, Maintenance, 06/28/19 8:28:20 EDT, Route to Pharmacy Electronically, [id number], [facility] Start Date: 06/28/19 Status: Ordered apixaban 5 mg oral tablet 1 tablet = 5 mg, By Mouth, 2 times a day, # 60 tablet, 1 Refills, Maintenance, 05/15/20 13:00:00 EDT, Tablet, [facility], 185.42, cm, 04/20/20 9:09:00 EDT, Height Start Date: 05/15/20 Status: Ordered cholecalciferol 50,000 intl units oral capsule 1 capsule = 50,000 International_Units, By Mouth, Every week, # 12 capsule, 0 Refills, Maintenance,04/17/20 16:24:00 EDT, Capsule, [facility], 185.42, cm, 03/12/20 8:37:00 EDT, [...] 06/28/19 8:28:42 EDT, Route to Pharmacy Electronically, [id number], [facility] Start Date: 06/28/19 Status: Ordered metoprolol 50 mg oral tablet, extended release 50 mg, 1, tablet, By Mouth, Daily, # 90 tablet, Refills 3, Tot. Refills 3, Maintenance, 06/28/19 8:29:10 EDT, Route to Pharmacy Electronically, [id number], [facility], replaces IR metoprolol Start Date: [...] 03/12/20 9:30:00 EDT, Route to Pharmacy Electronically, [id number], [facility], 185.42, cm, 03/12/20 8:37:00 EDT, Height Start Date: 03/12/20 Status: Ordered Trelegy Ellipta inhalation powder 1 puffs, Inhalation, Daily, at the same time every day, # 1 each, 2 Refills, Maintenance, 05/25/20 7:08:00 EDT, Powder, [facility], 185.42, cm, 05/25/20 6:57:00 EDT, [...]
--- OUTSIDE RECORDS SUMMARY | 2023-04-09 20:21 | XMS_ITS | Continuity of Care Document ---
Author Name Unknown Organization [facility] Ata Andrzej lt Address [address] [place] [address]- Care Team Providers Care Termite Helper Name Role Phone Lucille KEY, Ga Pollard Primary Care Physician [phone] [facility] 08[facility]21 - 09/20/21 [facility] Adult [address] [place] [address]- Allergies, Adverse Reactions, Alerts Substance Reaction Severity [...] Not Given Patient Refuses 1Result Comment: [09/21/2018] [facility] [id number] 2Result Comment: [06/10/2017] [facility]: [id number] 3Result Comment: [09/09/2017] [facility]# [id number] 4Result Comment: [09/09/2017] [facility]# [id number] Medications ALPRAZolam 0.5 mg oral tablet 0.5 mg, 1, tablet, By Mouth, 3 times a day, PRN, Refills 0, Maintenance, for anxiety, 08/05/17 11:11:03 Start Date: 08/05/17 Status: Ordered amLODIPine 10 mg oral tablet 10 mg, 1, tablet, By Mouth, Daily, # 90 tablet, Refills 3, Tot. Refills 3, Maintenance, 02/06/21 15:19:00 EDT, Route to Pharmacy Electronically, [facility], 185.42, cm, 10/15/20 8:52:00 EST, [...] 02/06/21 15:19:00 EDT, Route to Pharmacy Electronically, [facility], 185.42, cm, 10/15/20 8:52:00 EST, Height Start Date: 02/06/21 Status: Ordered metoprolol 50 mg oral tablet, extended release 50 mg, 1, tablet, By Mouth, Daily, # 90 tablet, Refills 3, Tot. Refills 3, Maintenance, 02/06/21 15:18:00 EDT, Route to Pharmacy Electronically, [facility], replaces IR metoprolol, 185.42, cm, [...] 03/01/21 8:55:00 EDT, Route to Pharmacy Electronically, [id number], [facility], 185.42, cm, 10/15/20 8:52:00 EST, Height Start Date: 03/01/21 Status: Ordered Proventil HFA 90 mcg/inh inhalation aerosol with adapter 2, puffs, Inhalation, 4 times a day, PRN, # 25 Gm, Refills 2, Tot. Refills 2, Maintenance, 204:54:00 EST, Aerosol, Route to Pharmacy Electronically, [id number], [facility], 185.42, cm, [...]
--- OUTSIDE RECORDS SUMMARY | 2023-04-09 20:21 | XMS_ITS | Continuity of Care Document ---
Author Name Unknown Organization [facility] Address [address] [place] [address]- Care Team Providers Care Inclusion Special Educator Name Role Phone Lucille KEY, Ga Pollard Primary Care Physician [facility]): 04[facility]21 - 05/04/21 [facility] [address] [place] [address] [place] Allergies, Adverse Reactions, Alerts Substance Reaction Severity [...] Given Patient Refuses 1Result Comment: [09/21/2018] [facility] [id number] 2Result Comment: [06/10/2017] [facility]: 61878-795-78 3Result Comment: [09/09/2017] [facility]# [id number] 4Result Comment: [09/09/2017] [facility]# [id number] Medications ALPRAZolam 0.5 mg oral tablet 0.5 mg, 1, tablet, By Mouth, 3 times a day, PRN, Refills 0, Maintenance, for anxiety, 08/05/17 11:11:03 Start Date: 08/05/17 Status: Ordered amLODIPine 10 mg oral tablet 10 mg, 1, tablet, By Mouth, Daily, # 90 tablet, Refills 3, Tot. Refills 3, Maintenance, 02/06/21 15:19:00 EDT, Route to Pharmacy Electronically, [facility], 185.42, cm, 10/15/20 8:52:00 EST, Height Start Date: 02/06/21 Status: Ordered Compression Stockings See Instructions, # 1 each, Maintenance, surgical, thigh high length 20-30 mm Hg, 04/20/20 9:37:00 EDT, Supply Start Date: 04/20/20 Status: Ordered D3-50 oral capsule 1 capsule, By Mouth, Every week, # 12 capsule, 0 Refills, Maintenance, 03/19/21 12:03:00 EDT, [facility], 185.42, cm, 03/08/21 10:27:00 EDT, Height Start Date: 03/19/21 Status: Ordered lisinopril 20 mg oral tablet 20 mg, 1, tablet, By Mouth, Daily, # 90 tablet, Refills 3, Tot. Refills 3, Maintenance, 02/06/21 15:19:00 EDT, Route to Pharmacy Electronically, [facility], 185.42, cm, 10/15/20 8:52:00 EST, Height Start Date: 02/06/21 Status: Ordered metoprolol 50 mg oral tablet, extended release 50 mg, 1, tablet, By Mouth, Daily, # 90 tablet, Refills 3, Tot. Refills 3, Maintenance, 02/06/21 15:18:00 EDT, Route to Pharmacy Electronically, [facility], replaces IR metoprolol, 185.42, cm, [...] 03/01/21 8:55:00 EDT, Route to Pharmacy Electronically, [id number], [facility], 185.42, cm, 10/15/20 8:52:00 EST, Height Start Date: 03/01/21 Status: Ordered Proventil HFA 90 mcg/inh inhalation aerosol with adapter 2, puffs, Inhalation, 4 times a day, PRN, # 25 Gm, Refills 2, Tot. Refills 2, Maintenance, 204:54:00 EST, Aerosol, Route to Pharmacy Electronically, [id number], [facility], 185.42, cm, [...]
--- OUTSIDE RECORDS SUMMARY | 2023-04-09 20:21 | XMS_ITS | Continuity of Care Document ---
Author Name Unknown Organization [facility] Andrzej lt Address [address] [place] [address]- Care Team Providers Care Online Tutor Name Role Phone Lucille KEY, Ga Pollard Primary Care Physician [phone] Encounter [facility] Date(s): 06/22/20 - 07/22/20 [facility] Adult [address] [place] [address]- Allergies, Adverse Reactions, Alerts Substance Reaction Severity [...] Comment: [09/21/2018] [facility] [id number] 2Result Comment: [06/10/2017] [facility]: 94759-753-09 3Result Comment: [09/09/2017] [facility]# [id number] 4Result Comment: [09/09/2017] [facility]# [id number] Medications ALPRAZolam 0.5 mg oral tablet 0.5 mg, 1, tablet, By Mouth, 3 times a day, PRN, Refills 0, Maintenance, for anxiety, 08/05/17 11:11:03 Start Date: 08/05/17 Status: Ordered amLODIPine 10 mg oral tablet 10 mg, 1, tablet, By Mouth, Daily, # 90 tablet, Refills 3, Tot. Refills 3, Maintenance, 06/28/19 8:28:20 EDT, Route to Pharmacy Electronically, [id number], [facility] Start Date: 06/28/19 Status: Ordered apixaban 5 mg oral tablet 1 tablet = 5 mg, By Mouth, 2 times a day, # 60 tablet, 1 Refills, Maintenance, 05/15/20 13:00:00 EDT, Tablet, [facility], 185.42, cm, 04/20/20 9:09:00 EDT, Height Start Date: 05/15/20 Status: Ordered cholecalciferol 50,000 intl units oral capsule 1 capsule = 50,000 International_Units, By Mouth, Every week, # 12 capsule, 0 Refills, Maintenance,04/17/20 16:24:00 EDT, Capsule, [facility], 185.42, cm, 03/12/20 8:37:00 EDT, [...] 06/28/19 8:28:42 EDT, Route to Pharmacy Electronically, [id number], [facility] Start Date: 06/28/19 Status: Ordered metoprolol 50 mg oral tablet, extended release 50 mg, 1, tablet, By Mouth, Daily, # 90 tablet, Refills 3, Tot. Refills 3, Maintenance, 06/28/19 8:29:10 EDT, Route to Pharmacy Electronically, [id number], [facility], replaces IR metoprolol Start Date: [...] 03/12/20 9:30:00 EDT, Route to Pharmacy Electronically, [id number], [facility], 185.42, cm, 03/12/20 8:37:00 EDT, Height Start Date: 03/12/20 Status: Ordered Trelegy Ellipta inhalation powder 1 puffs, Inhalation, Daily, at the same time every day, # 1 each, 2 Refills, Maintenance, 05/25/20 7:08:00 EDT, Powder, [facility], 185.42, cm, 05/25/20 6:57:00 EDT, [...] Vitamin D deficiency(Confirmed) Active 1While living in [place] Social History Social History Type Response Smoking Status Current every day sm oker; Type: Cigarettes; Tobacco use times per day: 1 PPD now down to 1 pack/week; Number of years: 36; Total pack years: 36; Started at age: 15; entered on: 03/02/17 Sex
--- OUTSIDE RECORDS SUMMARY | 2023-04-09 20:21 | XMS_ITS | Continuity of Care Document ---
Author Name Unknown Organization [facility] Andrzej lt Address [address] [place] [address]- Care Team Providers Care Food Counter Worker Name Role Phone Lucille KEY, Ga Pollard Primary Care Physician [phone] [facility] Date[facility]s): 04/03/21 - 05/03/21 [facility] Adult [address] [place] [address]- Attending Physician: Admtr, Ar8 Admitting Physician: Admtr, [...] Comment: [09/21/2018] [facility] [id number] 2Result Comment: [06/10/2017] [facility]: 23202-363-60 3Result Comment: [09/09/2017] [facility]# [id number] 4Result Comment: [09/09/2017] [facility]# 31160-261-45 Medications ALPRAZolam 0.5 mg oral tablet 0.5 mg, 1, tablet, By Mouth, 3 times a day, PRN, Refills 0, Maintenance, for anxiety, 08/05/17 11:11:03 Start Date: 08/05/17 Status: Ordered amLODIPine 10 mg oral tablet 10 mg, 1, tablet, By Mouth, Daily, # 90 tablet, Refills 3, Tot. Refills 3, Maintenance, 02/06/21 15:19:00 EDT, Route to Pharmacy Electronically, [facility], 185.42, cm, 10/15/20 8:52:00 EST, Height Start Date: 02/06/21 Status: Ordered Compression Stockings See Instructions, # 1 each, Maintenance, surgical, thigh high length 20-30 mm Hg, 04/20/20 9:37:00 EDT, Supply Start Date: 04/20/20 Status: Ordered D3-50 oral capsule 1 capsule, By Mouth, Every week, # 12 capsule, 0 Refills, Maintenance, 03/19/21 12:03:00 EDT, [facility], 185.42, cm, 03/08/21 10:27:00 EDT, Height Start Date: 03/19/21 Status: Ordered lisinopril 20 mg oral tablet 20 mg, 1, tablet, By Mouth, Daily, # 90 tablet, Refills 3, Tot. Refills 3, Maintenance, 02/06/21 15:19:00 EDT, Route to Pharmacy Electronically, [facility], 185.42, cm, 10/15/20 8:52:00 EST, Height Start Date: 02/06/21 Status: Ordered metoprolol 50 mg oral tablet, extended release 50 mg, 1, tablet, By Mouth, Daily, # 90 tablet, Refills 3, Tot. Refills 3, Maintenance, 02/06/21 15:18:00 EDT, Route to Pharmacy Electronically, [facility], replaces IR metoprolol, 185.42, cm, [...] 03/01/21 8:55:00 EDT, Route to Pharmacy Electronically, [id number], [facility], 185.42, cm, 10/15/20 8:52:00 EST, Height Start Date: 03/01/21 Status: Ordered Proventil HFA 90 mcg/inh inhalation aerosol with adapter 2, puffs, Inhalation, 4 times a day, PRN, # 25 Gm, Refills 2, Tot. Refills 2, Maintenance, 204:54:00 EST, Aerosol, Route to Pharmacy Electronically, [id number], [facility], 185.42, cm, [...] Vitamin D deficiency(Confirmed) Active 1While living in [place] Social History Social History Type Response Smoking Status Current every day sm oker; Type: Cigarettes; Tobacco use times per day: 1 PPD now down to 1 pack/week; Number of years: 36; Total pack years: 36; Started at age: 15; entered on: 03/02/17 Sex
--- OUTSIDE RECORDS SUMMARY | 2023-04-09 20:21 | XMS_ITS | Continuity of Care Document ---
Author Name Unknown Organization [facility] ter Address [address] [place] [address]- Care Team Providers Care Body Fitter Name Role Phone Lucille KEY, Ga Pollard Primary Care Physician [facility] Date[facility]s): 05/08/21 - 06/13/[address] [address] Attending Physician: Janelle Pandey NP Admitting Physician: Janelle Pandey NP Referring Physician: Janelle Pandey NP Allergies, Adverse Reactions, Alerts Substance Reaction Severity [...] Refuses 1Result Comment: [09/21/2018] [facility] [id number] 2Result Comment: [06/10/2017] [facility]: 16921-058-36 3Result Comment: [09/09/2017] [facility]# [id number] 4Result Comment: [09/09/2017] [facility]# [id number] Medications ALPRAZolam 0.5 mg oral tablet 0.5 mg, 1, tablet, By Mouth, 3 times a day, PRN, Refills 0, Maintenance, for anxiety, 08/05/17 11:11:03 Start Date: 08/05/17 Status: Ordered amLODIPine 10 mg oral tablet 10 mg, 1, tablet, By Mouth, Daily, # 90 tablet, Refills 3, Tot. Refills 3, Maintenance, 02/06/21 15:19:00 EDT, Route to Pharmacy Electronically, [facility], 185.42, cm, 10/15/20 8:52:00 EST, Height Start Date: 02/06/21 Status: Ordered Compression Stockings See Instructions, # 1 each, Maintenance, surgical, thigh high length 20-30 mm Hg, 04/20/20 9:37:00 EDT, Supply Start Date: 04/20/20 Status: Ordered D3-50 oral capsule 1 capsule, By Mouth, Every week, # 12 capsule, 0 Refills, Maintenance, 03/19/21 12:03:00 EDT, [facility], 185.42, cm, 03/08/21 10:27:00 EDT, Height Start Date: 03/19/21 Status: Ordered lisinopril 20 mg oral tablet 20 mg, 1, tablet, By Mouth, Daily, # 90 tablet, Refills 3, Tot. Refills 3, Maintenance, 02/06/21 15:19:00 EDT, Route to Pharmacy Electronically, [facility], 185.42, cm, 10/15/20 8:52:00 EST, Height Start Date: 02/06/21 Status: Ordered metoprolol 50 mg oral tablet, extended release 50 mg, 1, tablet, By Mouth, Daily, # 90 tablet, Refills 3, Tot. Refills 3, Maintenance, 02/06/21 15:18:00 EDT, Route to Pharmacy Electronically, [facility], replaces IR metoprolol, 185.42, cm, [...] 03/01/21 8:55:00 EDT, Route to Pharmacy Electronically, [id number], [facility], 185.42, cm, 10/15/20 8:52:00 EST, Height Start Date: 03/01/21 Status: Ordered Proventil HFA 90 mcg/inh inhalation aerosol with adapter 2, puffs, Inhalation, 4 times a day, PRN, # 25 Gm, Refills 2, Tot. Refills 2, Maintenance, 204:54:00 EST, Aerosol, Route to Pharmacy Electronically, [id number], [facility], 185.42, cm, [...] Vitamin D deficiency(Confirmed) Active 1While living in [place] Social History Social History Type Response Smoking Status Current every day haily rocha; Type: Cigarettes; Tobacco use times per day: 1 PPD now down to 1 pack/week; Number of years: 36; Total pack years: 36; Started at age: 15; entered on: 03/02/17 Sex
--- OUTSIDE RECORDS SUMMARY | 2023-04-09 20:21 | XMS_ITS | Continuity of Care Document ---
Author Name Unknown Organization [facility] ter Address [address] [place] [address]- Care Team Providers Care Mineral Resources Inspector Name Role Phone Ga Adkins MD Primary Care Physician [facility] Date[facility]s): 01/07/21 - 04/24/[address] [address] Attending Physician: Ga Adkins MD Admitting Physician: Ga Adkins MD Referring Physician: Ga Adkins MD Allergies, [...] 1Result Comment: [09/21/2018] [facility] [id number] 2Result Comment: [06/10/2017] [facility]: 12130-507-58 3Result Comment: [09/09/2017] [facility]# 27171-202-27 4Result Comment: [09/09/2017] [facility]# [id number] Medications ALPRAZolam 0.5 mg oral tablet 0.5 mg, 1, tablet, By Mouth, 3 times a day, PRN, Refills 0, Maintenance, for anxiety, 08/05/17 11:11:03 Start Date: 08/05/17 Status: Ordered amLODIPine 10 mg oral tablet 10 mg, 1, tablet, By Mouth, Daily, # 90 tablet, Refills 3, Tot. Refills 3, Maintenance, 02/06/21 15:19:00 EDT, Route to Pharmacy Electronically, [facility], 185.42, cm, 10/15/20 8:52:00 EST, Height Start Date: 02/06/21 Status: Ordered Compression Stockings See Instructions, # 1 each, Maintenance, surgical, thigh high length 20-30 mm Hg, 04/20/20 9:37:00 EDT, Supply Start Date: 04/20/20 Status: Ordered D3-50 oral capsule 1 capsule, By Mouth, Every week, # 12 capsule, 0 Refills, Maintenance, 03/19/21 12:03:00 EDT, [facility], 185.42, cm, 03/08/21 10:27:00 EDT, Height Start Date: 03/19/21 Status: Ordered lisinopril 20 mg oral tablet 20 mg, 1, tablet, By Mouth, Daily, # 90 tablet, Refills 3, Tot. Refills 3, Maintenance, 02/06/21 15:19:00 EDT, Route to Pharmacy Electronically, [facility], 185.42, cm, 10/15/20 8:52:00 EST, Height Start Date: 02/06/21 Status: Ordered metoprolol 50 mg oral tablet, extended release 50 mg, 1, tablet, By Mouth, Daily, # 90 tablet, Refills 3, Tot. Refills 3, Maintenance, 02/06/21 15:18:00 EDT, Route to Pharmacy Electronically, [facility], replaces IR metoprolol, 185.42, cm, [...] 03/01/21 8:55:00 EDT, Route to Pharmacy Electronically, [id number], [facility], 185.42, cm, 10/15/20 8:52:00 EST, Height Start Date: 03/01/21 Status: Ordered Proventil HFA 90 mcg/inh inhalation aerosol with adapter 2, puffs, Inhalation, 4 times a day, PRN, # 25 Gm, Refills 2, Tot. Refills 2, Maintenance, 204:54:00 EST, Aerosol, Route to Pharmacy Electronically, [id number], [facility], 185.42, cm, [...]
--- OUTSIDE RECORDS SUMMARY | 2023-04-09 20:21 | XMS_ITS | Continuity of Care Document ---
Author Name Unknown Organization [facility] Andrzej lt Address [address] [place] [address]- Care Team Providers Care Senior Naval Parachutist Name Role Phone Ga Adkins MD Primary Care Physician Encounter [facility] Date(s): 02/06/21 - 02/13/21 [facility] Adult [address] [place] [address]- Attending Physician: Ga Adkins MD Allergies, Adverse [...] Not Given Patient Refuses 1Result Comment: [09/21/2018] [facility] [id number] 2Result Comment: [06/10/2017] [facility]: 24204-383-84 3Result Comment: [09/09/2017] [facility]# [id number] 4Result Comment: [09/09/2017] [facility]# [id number] Medications ALPRAZolam 0.5 mg oral tablet 0.5 [...] 02/06/21 15:19:00 EDT, Route to Pharmacy Electronically, [facility], 185.42, cm, 10/15/20 8:52:00 EST, Height Start Date: 02/06/21 Status: Ordered metoprolol 50 mg oral tablet, extended release 50 mg, 1, tablet, By Mouth, Daily, # 90 tablet, Refills 3, Tot. Refills 3, Maintenance, 02/06/21 15:18:00 EDT, Route to Pharmacy Electronically, [facility], replaces IR metoprolol, [...] 03/12/20 9:30:00 EDT, Route to Pharmacy Electronically, [id number], [facility], 185.42, cm, 03/12/20 8:37:00 EDT, Height Start Date: 03/12/20 Status: Ordered Proventil HFA 90 mcg/inh inhalation aerosol with adapter 2, puffs, Inhalation, 4 times a day, PRN, # 25 Gm, Refills 2, Tot. Refills 2, Maintenance, 204:54:00 EST, Aerosol, Route to Pharmacy Electronically, [id number], [facility], 185.42, cm, 05/25/20 6:57:00 ED... Start Date: 08/02/20 Status: Ordered Trelegy Ellipta inhalation powder 1 puffs, Inhalation, Daily, at the same time every day, # 1 each, 2 Refills, Maintenance, 05/25/20 7:08:00 EDT, Powder, [facility], 185.42, cm, 05/25/20 6:57:00 EDT, [...]
--- OUTSIDE RECORDS SUMMARY | 2023-04-09 20:21 | XMS_ITS | Continuity of Care Document ---
Author Name Unknown Organization [facility] Andrzej lt Address [address] [place] [address]- Care Team Providers Care Partition Notcher Name Role Phone Lucille KEY, Ga Pollard Primary Care Physician [phone] [facility]s): 04/02/21 - 05/02/21 [facility] Adult [address] [place] [address]- Allergies, Adverse Reactions, Alerts Substance Reaction Severity [...] Comment: [09/21/2018] [facility] [id number] 2Result Comment: [06/10/2017] [facility]: 63046-136-75 3Result Comment: [09/09/2017] [facility]# [id number] 4Result Comment: [09/09/2017] [facility]# [id number] Medications ALPRAZolam 0.5 mg oral tablet 0.5 mg, 1, tablet, By Mouth, 3 times a day, PRN, Refills 0, Maintenance, for anxiety, 08/05/17 11:11:03 Start Date: 08/05/17 Status: Ordered amLODIPine 10 mg oral tablet 10 mg, 1, tablet, By Mouth, Daily, # 90 tablet, Refills 3, Tot. Refills 3, Maintenance, 02/06/21 15:19:00 EDT, Route to Pharmacy Electronically, [facility], 185.42, cm, 10/15/20 8:52:00 EST, Height Start Date: 02/06/21 Status: Ordered Compression Stockings See Instructions, # 1 each, Maintenance, surgical, thigh high length 20-30 mm Hg, 04/20/20 9:37:00 EDT, Supply Start Date: 04/20/20 Status: Ordered D3-50 oral capsule 1 capsule, By Mouth, Every week, # 12 capsule, 0 Refills, Maintenance, 03/19/21 12:03:00 EDT, [facility], 185.42, cm, 03/08/21 10:27:00 EDT, Height Start Date: 03/19/21 Status: Ordered lisinopril 20 mg oral tablet 20 mg, 1, tablet, By Mouth, Daily, # 90 tablet, Refills 3, Tot. Refills 3, Maintenance, 02/06/21 15:19:00 EDT, Route to Pharmacy Electronically, [facility], 185.42, cm, 10/15/20 8:52:00 EST, Height Start Date: 02/06/21 Status: Ordered metoprolol 50 mg oral tablet, extended release 50 mg, 1, tablet, By Mouth, Daily, # 90 tablet, Refills 3, Tot. Refills 3, Maintenance, 02/06/21 15:18:00 EDT, Route to Pharmacy Electronically, [facility], replaces IR metoprolol, 185.42, cm, [...] 03/01/21 8:55:00 EDT, Route to Pharmacy Electronically, [id number], [facility], 185.42, cm, 10/15/20 8:52:00 EST, Height Start Date: 03/01/21 Status: Ordered Proventil HFA 90 mcg/inh inhalation aerosol with adapter 2, puffs, Inhalation, 4 times a day, PRN, # 25 Gm, Refills 2, Tot. Refills 2, Maintenance, 204:54:00 EST, Aerosol, Route to Pharmacy Electronically, [id number], [facility], 185.42, cm, [...]
--- OUTSIDE RECORDS SUMMARY | 2023-04-09 20:21 | XMS_ITS | Continuity of Care Document ---
Author Name Unknown Organization [facility] Andrzej lt Address [address] [place] [address]- Care Team Providers Care Partner Cco Name Role Phone Lucille KEY, Ga Pollard Primary Care Physician Encounter [facility] [place] Date(s): 12/31/20 - 01/30/21 [facility] Adult [address] [place] [address]- Allergies, Adverse Reactions, Alerts Substance Reaction Severity [...] Refuses 1Result Comment: [09/21/2018] [facility] [id number] 2Result Comment: [06/10/2017] [facility]: [id number] 3Result Comment: [09/09/2017] [facility]# [id number] 4Result Comment: [09/09/2017] [facility]# [id number] Medications acetaminophen-HYDROcodone 325 mg-5 mg oral tablet 1 tablet, By Mouth, 3 times a day, PRN for severe pain, # 30 tablet, 0 Refills, Acute 02/06/21 13:50:00 EDT, 01/07/21 13:50:00 EDT, Tablet, [facility], Partial fill upon patient request if the prescription is for a schedule II opioid ruby... Start Date: 01/07/21 Stop Date: 02/06/21 Status: [...] 11/01/20 10:02:00 EST, Route to Pharmacy Electronically, [facility]/pharmacy #[id number], 185.42, cm, 10/15/20 8:52:00 EST, Height [...] 11/01/20 10:02:00 EST, Route to Pharmacy Electronically, [facility]/pharmacy #[id number], 185.42, cm, 10/15/20 8:52:00 EST, Height Start Date: 11/01/20 Status: Ordered metoprolol 50 mg oral tablet, extended release 50 mg, 1, tablet, By Mouth, Daily, # 90 tablet, Refills 0, Tot. Refills 0, Maintenance, 11/01/20 10:02:00 EST, Route to Pharmacy Electronically, [facility]/pharmacy #[id number], replaces IR metoprolol, 185.42, cm, 10/15/20 [...] 03/12/20 9:30:00 EDT, Route to Pharmacy Electronically, [id number], [email or web address], 185.42, cm, 03/12/20 8:37:00 EDT, Height Start Date: 03/12/20 Status: Ordered Proventil HFA 90 mcg/inh inhalation aerosol with adapter 2, puffs, Inhalation, 4 times a day, PRN, # 25 Gm, Refills 2, Tot. Refills 2, Maintenance, 204:54:00 EST, Aerosol, Route to Pharmacy Electronically, [id number], [facility], 185.42, cm, 05/25/20 6:57:00 ED... Start Date: 08/02/20 Status: Ordered Trelegy Ellipta inhalation powder 1 puffs, Inhalation, Daily, at the same time every day, # 1 each, 2 Refills, Maintenance, 05/25/20 7:08:00 EDT, Powder, [facility], 185.42, cm, 05/25/20 6:57:00 EDT, [...]
--- OUTSIDE RECORDS SUMMARY | 2023-04-09 20:21 | XMS_ITS | Continuity of Care Document ---
Author Name Unknown Organization [facility] ter Address [address] [place] [address]- Care Team Providers Care Rotary Cutter Feeder Name Role Phone Lucille KEY, Ga Pollard Primary Care Physician Encounter [facility] Date(s): 11/19/19 - 11/19/[address] [address] Discharge Disposition: A-D/C Home Attending Physician: Giles BINGHAM, Michelle Neumann Admitting Physician: Giles BINGHAM, Michelle Neumann Referring Physician: Giles BINGAHM, Michelle Neumann Allergies, Adverse Reactions, Alerts Substance Reaction Severity [...] Comment: [09/21/2018] [facility] [id number] 2Result Comment: [06/10/2017] [facility]: [id number] 3Result Comment: [09/09/2017] [facility]# [id number] 4Result Comment: [09/09/2017] [facility]# [id number] Medications ALPRAZolam 0.5 mg oral tablet 0.5 mg, 1, tablet, By Mouth, 3 times a day, PRN, Refills 0, Maintenance, for anxiety, 08/05/17 11:11:03 Start Date: 08/05/17 Status: Ordered amLODIPine 10 mg oral tablet 10 mg, 1, tablet, By Mouth, Daily, # 90 tablet, Refills 3, Tot. Refills 3, Maintenance, 06/28/19 8:28:20 EDT, Route to Pharmacy Electronically, [id number], [facility] Start Date: [...] 06/28/19 8:28:42 EDT, Route to Pharmacy Electronically, [id number], [facility] Start Date: 06/28/19 Status: Ordered metoprolol 50 mg oral tablet, extended release 50 mg, 1, tablet, By Mouth, Daily, # 90 tablet, Refills 3, Tot. Refills 3, Maintenance, 06/28/19 8:29:10 EDT, Route to Pharmacy Electronically, [id number], [email or web address], replaces IR metoprolol Start Date: 06/28/19 Status: Ordered ProAir HFA 90 mcg/inh inhalation aerosol with adapter 2, puffs, Inhalation, Every 6 hours, PRN, # 1 each, Refills 5, Tot. Refills 5, Maintenance, 02/23/19 13:14:12 EDT, Route to Pharmacy Electronically, [id number], [email or web address] Start Date: 02/23/19 Status: Ordered Protonix 40 mg oral delayed release tablet 1 tablet = 40 mg, By Mouth, Daily, # 30 tablet, 11 Refills, Maintenance, 01/19/19 14:47:42 EDT Start Date: 01/19/19 Status: Ordered Redi-Cat pre-mixed 450 mL bottle Redi-Cat pre-mixed 450 mL bottle, See Instructions, # 2 each, Refills 0, Tot. Refills 0, Maintenance, Drink 1 bottle 6 hours prior to appointment and drink 1 bottle one and a half hours prior to appointment., 11/14/19 10:53:00 EST, Needs two 450 mL beth... Start Date: 11/14/19 Status: Ordered Singulair 10 mg oral tablet 10 mg, 1, tablet, By Mouth, Daily in PM, # 90 tablet, Refills 3, Tot. Refills 3, Maintenance, 06/28/19 8:27:40 EDT, Route to Pharmacy Electronically, [id number], [email or web address] Start Date: 06/28/19 Status: Ordered [...]
--- OUTSIDE RECORDS SUMMARY | 2023-04-09 20:21 | XMS_ITS | Continuity of Care Document ---
Author Name Unknown Organization [facility] Andrzej lt Address [address] [place] [address]- Care Team Providers Care Survey Technologist Name Role Phone Ga Adkins MD Primary Care Physician Encounter [facility] [place] Date(s): 11/13/20 - 11/20/20 [facility] Adult [address] [place] [address]- Attending Physician: Ga Adkins MD Allergies, Adverse [...] Comment: [09/21/2018] [facility] [id number] 2Result Comment: [06/10/2017] [facility]: [id number] 3Result Comment: [09/09/2017] [facility]# [id number] 4Result Comment: [09/09/2017] [facility]# [id number] Medications ALPRAZolam 0.5 mg oral tablet 0.5 mg, 1, tablet, By Mouth, 3 times a day, PRN, Refills 0, Maintenance, for anxiety, 08/05/17 11:11:03 Start Date: 08/05/17 Status: Ordered amLODIPine 10 mg oral tablet 10 mg, 1, tablet, By Mouth, Daily, # 90 tablet, Refills 0, Tot. Refills 0, Maintenance, 11/01/20 10:02:00 EST, [id number], cm, 10/15/20 8:52:00 EST, Height [...] 11/01/20 10:02:00 EST, [id number], cm, 10/15/20 8:52:00 EST, Height Start Date: 11/01/20 Status: Ordered metoprolol 50 mg oral tablet, extended release 50 mg, 1, tablet, By Mouth, Daily, # 90 tablet, Refills 0, Tot. Refills 0, Maintenance, 11/01/20 10:02:00 EST, Route to Pharmacy Electronically, [facility]/pharmacy #[id number], replaces IR metoprolol, 185.42, cm, [...] 03/12/20 9:30:00 EDT, Route to Pharmacy Electronically, [id number], [facility], 185.42, cm, 03/12/20 8:37:00 EDT, Height Start Date: 03/12/20 Status: Ordered Proventil HFA 90 mcg/inh inhalation aerosol with adapter 2, puffs, Inhalation, 4 times a day, PRN, # 25 Gm, Refills 2, Tot. Refills 2, Maintenance, 204:54:00 EST, Aerosol, Route to Pharmacy Electronically, [id number], [facility], 185.42, cm, 05/25/20 6:57:00 ED... Start Date: 08/02/20 Status: Ordered Trelegy Ellipta inhalation powder 1 puffs, Inhalation, Daily, at the same time every day, # 1 each, 2 Refills, Maintenance, 05/25/20 7:08:00 EDT, Powder, [facility], 185.42, cm, 05/25/20 6:57:00 EDT, [...] deficiency(Confirmed) Active 1While living in [place] Social History Social History Type Response Smoking Status Current every day haily rocha; Type: Cigarettes; Tobacco use times per day: 1 PPD now down to 1 pack/week; Number of years: 36; Total pack years: 36; Started at age: 15; entered on: 03/02/17 Sex
--- OUTSIDE RECORDS SUMMARY | 2023-04-09 20:21 | XMS_ITS | Continuity of Care Document ---
Author Name Unknown Organization [facility] ter Address [address] [place] [id number]- Care Team Providers Care Community Nutrition Educator Name Role Phone Lucille KEY, Ga Pollard Primary Care Physician Encounter [facility] Date(s): 03/12/23 - 03/16/[address] [address]- Encounter Diagnosis Chest pain at rest(Final) - 03/11/23 Suicidal ideation(Final) - 03/11/23 Discharge Disposition: A-D/C Home Attending Physician: Alfred Altman MD, Jerome Cordon Admitting Physician: Sarwat Medrano DO Referring Physician: Not on Staff, Referring [...] Comment: [09/21/2018] [facility] [id number] 2Result Comment: [06/10/2017] [facility]: [id number] 3Result Comment: [09/09/2017] [facility]# [id number] 4Result Comment: [09/09/2017] [facility]# [id number] Medications amLODIPine 10 mg oral tablet 10 mg, 1, tablet, By Mouth, Daily, # 90 tablet, Refills 3, Tot. Refills 3, Maintenance, 08/08/22 10:26:00 EST, Route to Pharmacy Electronically, [facility], 186, cm, 08/08/22 9:54:00 EST, Height, 66, kg, 07/10/22 17:36:00 EDT, Dry Weight Start Date: 08/08/22 Stop Date: 08/29/22 Status: Ordered buPROPion 150 mg/24 hours (XL) oral tablet, extended release = 150 mg, By Mouth, Daily, 0 Refills, Maintenance, 03/16/23 14:07:00 EDT, XL Tablet, Partial fill upon patient request if the prescription is for a schedule II opioid drug. Start Date: 03/16/23 Status: Ordered busPIRone 10 mg oral tablet 5 mg, By Mouth, Daily, Refills 0, Maintenance, 03/16/23 14:07:00 EDT, Partial fill upon patient request if the prescription is for a schedule II opioid drug. Start Date: 03/16/23 Status: Ordered fluticasone-vilanterol Inhalation, Daily, 0 Refills, Maintenance, 03/16/23 14:08:00 EDT, Inhaler, Partial fill upon patient request if the prescription is for a schedule II opioid drug. Start Date: 03/16/23 Status: Ordered folic acid 1 mg oral tablet 1 mg, By Mouth, Daily, # 30 tablet, Refills 0, Tot. Refills 0, Maintenance, 03/16/23 14:08:00 EDT, Route to Pharmacy Electronically, [facility], Partial fill upon patient request if theprescription is for a schedule II opioid drug., 185... Start Date: 03/16/23 Status: Ordered hydrOXYzine pamoate 25 mg oral capsule = 50 mg, By Mouth, 3 times a day, PRN Anxiety, 0 Refills, Maintenance, 03/16/23 14:07:00 EDT, Capsule, Partial fill upon patient request if the prescription is for a schedule II opioid drug. Start Date: 03/16/23 Status: Ordered metoprolol 50 mg oral tablet, extended release 50 mg, 1, tablet, By Mouth, Daily, # 90 tablet, Refills 3, Tot. Refills 3, Maintenance, 08/08/22 10:26:00 EST, Route to Pharmacy Electronically, [facility], replaces IR metoprolol, 186, cm, 08/08/22 9:54:00 EST, Height, 66, kg, 07/10/22... Start Date: 08/08/22 Stop Date: 08/29/22 Status: Ordered oxyCODONE 5 mg oral tablet 5 mg, By Mouth, Every 6 hours, PRN, for 5 days, # 7 tablet, Refills 0, Tot. Refills 0, Acute 03/21/23 14:09:00 EDT, Pain , Severe, 03/16/23 14:09:00 EDT, Print Requisition, Partial fill upon patient request if the prescription is for a schedule II opi... Start Date: 03/16/23 Stop Date: 03/21/23 Status: Ordered oxyCODONE 5 mg oral tablet 5 mg, Tablet, By Mouth, Every 6 hours, PRN for Pain , Severe, Routine, 03/13/23 15:49:00 EDT Start Date: 03/13/23 Stop Date: 03/17/23 Status: Discontinued pregabalin 25 mg oral capsule 1 capsule = 25 mg, By Mouth, Daily at bedtime, # 30 capsule, 2 Refills, Maintenance, 08/08/22 10:30:00 EST, [facility], Partial fill upon patient request if the prescription is for a schedule II opioid drug., 186, cm, 08/08/22 9:54:00 ES... Start Date: 08/08/22 Status: Ordered pyridoxine 50 mg oral tablet 50 mg, By Mouth, Daily, # 30 tablet, Refills 0, Tot. Refills 0, Maintenance, 03/16/23 14:08:00 EDT,Route to Pharmacy Electronically, [facility], Partial fill upon patient request if the prescription is for a schedule II opioid drug., 18... Start Date: 03/16/23 Status: Ordered thiamine 100 mg oral tablet 100 mg, By Mouth, 2 times a day, # 30 tablet, Refills 0, Tot. Refills 0, Maintenance, 03/16/23 14:08:00 EDT, Route to Pharmacy Electronically, [facility], Partial fill upon patient [...] D deficiency Confirmed Active 1While living in [place] Results Radiology Reports * Exam Date Time Procedure Performing Provider Status 03/12/23 7:31 PM Ankle Min 3 Views Right Horace Sheth; Alisia (Verified) Notes: (Ankle Min 3 Views Right) Reason For Exam: f/u fracture;Pain RESULT: Ankle Min 3 Views Right Ankle Min 3 Views Right Reason: Pain; f u fracture; Clinical Question(s): Fracture COMPARISON: 02/20/2023 FINDINGS: Nondisplaced fracture of the distal fibula again noted without change in alignment from 02/20/2023. No definite periosteal reaction is visualized. No new fracture or dislocation is present. Bone mineralization is normal. Intact ankle mortise and talar dome. No arthritic changes. Normal soft tissues. IMPRESSION: Nondisplaced fracture of the distal fibula without change from 02/20/2023. No new abnormality is present. WSN: [id number] Ordering Physician: Teena Webb Dictated By: Sagar Zhao MD Dictated Date/Time: 03/12/23 7:40 pm Reviewed By: Sagar Zhao MD Signed By: Sagar Zhao MD Signed Date/Time: 03/12/23 7:40 pm Transcribed By: MANDA Transcribed Date/Time: 03/12/23 7:38 pm * Exam Date Time Procedure Performing Provider Status 03/12/23 8:[address] Angio Chest Anayeli Wagner; Auth (Ve rified) Notes: (CT Angio Chest) Reason For Exam: chest pain, h/o DVT;Pain RESULT: CT Angio Chest EXAMINATION: CT Angio Chest INDICATION: chest pain, h o DVT; Clinical Question(s): Pulmonary Embolism TECHNIQUE: Spiral CTA of the chest was performed after rapid IV contrast administration without cardiac gating, triggered by an KILO on the main pulmonary artery. Images are formatted in multiple planes using 2-D multiplanar and 3-D maximum intensity projection. 50 cc of Omnipaque 300 was administered intravenously. Weight-based protocol using automatic tube modulation was used to optimize exposure parameters. CTDIvol Body: 6.04 mGy, DLP Body: 329 mGy*cm. COMPARISONS: Multiple priors, most recent dated 07/10/2022 ANGIOGRAPHIC FINDINGS: Subtle small linear filling defect in the right lower lobe basal trunk and segmental arteries (for example series 302 images 288-291). Normal caliber pulmonary arteries No acute aortic abnormality seen on this study performed without cardiac gating. NON-ANGIOGRAPHIC FINDINGS: Load Dispatcher Local View Findings, Lines and Tubes: None. Trachea and Airways: Patent without evidence of tracheal or endobronchial lesion. Lungs and Pleura: Moderate emphysema. Subpleural reticulation predominantly in the right lung. No superimposed airspace opacities. No bronchiectasis. Groundglass nodules measuring up to 8 mm are present within an emphysematous area in the dependent right lower lobe (axial 62, 65, 69). Additional scattered punctate pulmonary nodules. No effusion or pneumothorax. Mediastinum and capo: Right hilar lymph nodes measuring up to 10 mm short axis. No esophageal abnormality. Normal thyroid. Heart: Heart is normal in size. No pericardial effusion. Moderate coronary artery calcification. Chest Wall Soft Tissues: Normal. Diaphragm and upper abdomen: No significant abnormality. Bones: No acute abnormality. Status post ORIF and multiple right-sided ribs with associated soft tissue changes including a small area of similar fluid attenuation deep to the scapula. Chronic healedleft rib fractures. Degenerative changes of the spine. IMPRESSION: Tiny linear filling defect in the right lower lobe basal trunk, more suggestive of sequela of remote prior pulmonary embolism than acute embolus. No pulmonary arterial enlargement or evidence of right heart strain. Otherwise no acute chest abnormality. Moderate emphysema. Groundglass nodules measuring up to 8 mm in the right lower lobe associated with an area of emphysema. Short-term follow-up in 3-6 months is recommended. The impression above was relayed to Teena Iyer by Dr. Cuong Reyes over the phone on 03/12/2023 at 9:56 AM. I have personally reviewed the images and I agree with this report. WSN: [id number] Ordering Physician: Teena Webb Dictated By: Murtaza Grayson MD Dictated Date/Time: 03/12/23 9:56 am Reviewed By: Cuong Reyes MD Signed By: Cuong Reyes MD Signed Date/Time: 03/12/23 10:01 am Transcribed By: MANDA Transcribed Date/Time: 03/12/23 9:48 am * Exam Date Time Procedure Performing Provider Status 03/11/23 8:24 PM Chest 2 Views Frontal and Lat Lesly Cha; Auth (Verified) Notes: (Chest 2 Views Frontal and Lat) Reason For Exam: Chest Pain;Other: RESULT: Chest 2 Views Frontal and Lat Chest 2 Views Frontal and Lat Hx of Present Illness: CP, dizziness,; Reason: Other:; Chest Pain; Clinical Question(s): CHF COMPARISON: 07/09/2022. FINDINGS: LINES AND TUBES: None. LUNGS AND PLEURA: Clear lungs. Normal pulmonary vascularity. No pleural effusion. No pneumothorax. HEART, MEDIASTINUM AND CAPO: Heart is normal in size. Normal mediastinal and hilar contour. BONES AND SOFT TISSUES: No acute abnormality. Chronic right sided rib fractures with lateral fixation hardware in place. IMPRESSION: No acute abnormality. WSN: [id number] Ordering Physician: Rajwinder Patterson Dictated By: Geovanna Chahal MD Dictated Date/Time: 03/11/23 9:42 pm Reviewed By: Geovanna Chahal MD Signed By: Geovanna Chahal MD Signed Date/Time: 03/11/23 9:42 pm Transcribed By: MANDA Transcribed Date/Time: 03/11/23 9:41 pm Vital Signs Most recent to oldest [Reference Range]: 1 2 3 Height 185 cm (03/16/23 11:43 AM) 185 cm (03/16/23 8:02 AM) 185 cm (03/16/23 3:39 AM) Weight 73.5 kg (03/12/23 4:21 PM) Oxygen Saturation [94-100 %] 99 % (03/16/23 11:43 AM) 99 % (03/16/23 8:02 AM) 99 % (03/16/23 3:39 AM) Pulse Rate [55-90 bpm] 61 bpm (03/16/23 11:43 AM) 62 bpm (03/16/23 8:02 AM) 64 bpm (03/16/23 3:39 AM) Body Mass Index [18.5-24.99 kg/m2] 21.48 kg/m2 (03/12/23 4:21 PM) Blood Pressure [90-138/55-84 mm Hg] 123/74mm Hg (03/16/23 11:43 AM) 131/85mm Hg (03/16/23 8:02 AM) 116/73mm Hg (03/16/23 3:39 AM) Respiratory Rate [16-30 br/min] 18 br/min (03/16/23 3:23 PM) 20 br/min (03/16/23 11:43 AM) 18 br/min (03/16/23 9:59 AM) Temperature [96.8-100.4 DegF] 98.1 DegF (03/16/23 11:43 AM) 97.7 DegF (03/16/23 8:02 AM) 98.7 DegF (03/16/23 3:39 AM) Liters per Minute 2 L/min (03/12/23 12:28 PM) 2 L/min (03/12/23 9:24 AM) 2 L/min (03/12/23 8:21 AM) Mode of Delivery (Oxygen) Room air (03/16/23 11:00 AM) Room air (03/16/23 8:02 AM) Room air (03/16/23 3:39 AM) Blood pressure sites Arm, left (03/16/23 11:43 AM) Arm, right (03/16/23 8:02 AM) Arm, left (03/16/23 3:39 AM) Temperature Route Oral (03/16/23 11:43 AM) Oral (03/16/23 8:02 AM) Oral (03/16/23 3:39 AM) Dry Weight 73 kg (03/12/23 4:21 PM) Weight Obtained Via Bed scale (03/12/23 4:21 PM) Dry Weight Obtained Via Patient/family s tated (03/12/23 4:21 PM) Social History Social History Type Response Smoking Status Current every day sm oker; Type: Cigarettes; Tobacco use times per day: 1 PPD now down to 1 pack/week; Number of years: 36; Total pack years: 36; Started at age: 15; entered on: 03/02/17 Sex Consult note * Ryan DE LA GARZA, Farrah Hardwick: PERFORM, MODIFY, MODIFY Event Display: Consult Authored Date: [id number] Patient: ??DOMINGA MURRIETA ? Age:??57 Years?Sex:??Male?:??1965?? This consult was requested by Dr. Teena Fernandes of [facility] hospital medicine for weight bearing recommendations and progression out of CAM boot placed by [facility]. Patient initially injuredhis ankle in December 2022. He was evaluated at [facility] where he was diagnosed with a right ankle fracture and placed in a CAM boot. He reportedly was not followed outpatient by orthopedics. He was seen at the [facility] ED on 02/20 and repeat x-rays were obtained demonstrating subacute Merritt B fracture of right fibula. He was additionally treated for ETOH use / withdrawal. He was subsequently discharged from [facility] ED. He represented to [facility] ED??on 03/11 for chest pain, hallucinations and SI. He was noted upon this admission to still be in the right CAM boot. Complains of right ankle pain to medicine team, however it responds to Tylenol. Patient has been ambulating on right ankle in CAM boot since initial injury. ?? Orthopedic surgery service consulted for recommendations on weight bearing and progression out of CAM boot. Recommend obtaining updated x-rays of the ankle. Once patient is discharged from [facility] he should obtain follow up with outpatient orthopedics through [facility] as this is where he was initially diagnosed and treated. Case discussed with Dr. Borjas. ?? This consult was performed via telephone. Patient was not formally evaluated by orthopedic provider. * Rayshawn Borjas MD: PERFORM Event Display: Consult Authored Date: [id number] I reviewed the patient's history, and imaging. Initial injury with some time in December, now between a month and 2 months ago. He was seen at [facility] where nonoperative management was decided upon, and placed in a boot. For some reason he presented to [facility] February 20, while being treated for alcohol use and withdrawal, x-rays were taken of the ankle, but to our knowledge not discussed with orthopedics. There remained a plan in place, so this was appropriate. He now presents to the ER for chest pain, hallucinations and suicidal ideation. Patient has been ambulating in his boot since the initial injury, suggesting that it is a stable injury. We will follow him while in the hospital, but f ollow-up should be with [facility] orthopedics who have initiated and guided??his care from the beginning. * Chantel KEY, Orville Velasquez: PERFORM Event Display: Consult Authored Date: [id number] Patient: ??DOMINGA MURRIETA ? Age:??57 Years?Sex:??Male?:??1965?? Chief Complaint SI History of Present Illness consult requested by: Sarwat Medrano, DO ?? Dominga Murrieta is a 57 yo male with a history of DVT, GERD, HTN, HLD, alcohol use disorder, learning disability,??and anxiety/depression who presented with chest pain and SI with plan and is being admitted for pneumonia and alcohol withdrawal. Psychiatry consulted to assess SI. ?? Patient says he came to the hospital because he was feeling terrible.?? He said he was feeling sickbut also feeling??like life is not worth living??and that he wanted to just drink himself to .?? He says he has been drinking about 1/5 of??hard alcohol a day.?? His mother last year??he has felt??like he does not have a purpose in life since her .?? 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 Also describes the??traumatic??experience of??placing her on hospice and the guilt??he feels that it was??his fault she . He describes??poor sleep, anhedonia,??and decreased appetite as well. ??Also says that he has some visual and auditory hallucinations??but that these are chronic for him. ?? Patient says he was psychiatrically hospitalized a few months ago but??does not like to dwell on the past and so??does not want to give me the details about where.?? He also endorses prior suicide attempts??but does not want to talk about them.?? He stresses that??does not see the point to his??life anymore??but does want help.?? When I ask??what is it that kept him alive so far??all he can say is that he is afraid of . ?? Discussed??plan for psychiatric hospitalization with patient and he agrees. Review of Systems All systems reviewed and negative except as noted in HPI. Mental Status Vitals & Measurements T:??98.2?F?? TMIN:??97.6?F?? TMAX:??98.2?F?? HR:??77??(Peripheral)?? RR:??20?? BP:??137/85?? SpO2:??94%?? Mental Status Examination Appearance: short hair, intact grooming Attitude toward examiner:??Cooperative Activity:??normal Mood:? I just feel like there's no point anymore Affect:??constricted Speech:??regular rate, volume, and prosody Language:??fluent Thought Process:??linear, goal-directed Thought Content:??no delusional content ?Suicidal Ideation:??SI with intent Perceptions:??auditory and visual hallucinations Cognition: ?Alert ?Oriented to??person, place, time, and situation ?Memory:??intact to recent events ?Concentration:??intact to conversation ?Fund of knowledge: appropriate to age ?Abstract reasoning:??intact Insight:??fair Judgement:??fair ?? Neurological Examination Cranial Nerves: EOMI, face symmetric, no dysarthria?? Motor: mild resting tremor in??b/l UEs ? [place] Suicide Score [place] Suicide Assessment Ca (03/11/23) [place] Suicide Score Last Asked Ca (03/12/23) Suicidal Intent No Plan Last Asked-CSSRS: No (03/12/23) Suicidal Thoughts Method Lst Asked-CSSRS: No (03/12/23) Suicidal Thoughts Past Month - CSSRS: No (03/11/23) Suicidal Thoughts Since Last Asked-CSSRS: Yes (03/12/23) Suicide Behavior Lifetime - CSSRS: No (03/11/23) Suicide Behavior Since Last Asked-CSSRS: No (03/12/23) Suicide Intent w/Plan Last Asked-CSSRS: No (03/12/23) Wish to be Past Month - CSSRS: No (03/11/23) Assessment/Plan 57 yo male with a history of DVT, GERD, HTN, HLD, alcohol use disorder, learning disability,??and anxiety/depression who presented with chest pain and SI with plan and is being admitted for pneumoniaand alcohol withdrawal. ??Patient is severely depressed with hopelessness, worthlessness, anhedonia,??and SI with plan to drink himself to .?? He has no current outpatient mental health providers??and has been drinking heavily. ??Given his significant psychiatric symptoms??he will require??psychiatric hospitalization for safety, containment,??medication management, and aftercare planning. ?? Diagnosis: MDD, recurrent, severe AUD, severe ?? Recommendations: -continue 1:1 and suicide precautions -pnt may not leave without psychiatry clearance and will need inpatient psych hospitalization once medically cleared (page psych triage at that time) -continue home psych meds ?? Recommendations sent to Dr. Teena Iyer. ?? Orville Golden MD Attending, Psychiatry Consultation Service [facility] ?? 80 min spent reviewing chart, speaking with primary team, obtaining the HPI, examining patient, and counseling the patient on??depression and treatment options.? Problem List/Past Medical History Ongoing Anxiety disorder [...] oral tablet, 10 mg, By Mouth, Daily BuPROpion XL Tablet, 150 mg, By Mouth, Daily busPIRone 10 mg oral tablet, 5 mg, By Mouth, Daily ClonIDINE Tablet, 0.1 mg, By Mouth, Every 6 hours Docusate/Senna Tablet, 1 tablet, By Mouth, 2 times a day, PRN Duoneb Inhalation Solution, 1 vials, BAND Nebulizer, Every 4 hours, PRN Enoxaparin Inj, 30 mg= 0.3 mL, Subcutaneous Injection, 2 times a day Folic Acid Tablet, 1 mg, By Mouth, Daily Melatonin Tablet, 3 mg, By Mouth, Daily at bedtime, PRN metoprolol 50 mg oral tablet, extended release, 50 mg, By Mouth, Daily MiraLax Powder, 17 Gm= 1 pack/packet, By Mouth, Daily, PRN Multivitamin Tablet, 1 tablet, By Mouth, Daily NaCL 0.9% Flush, 3 mL, IV Push, Every 8 hours NaCL 0.9% Flush, 3 mL, IV Push, Every 8 hours, PRN Nicotine Topical, 14 mg, Topically, Daily PHENobarbital 30 mg oral tablet, 60 mg, By Mouth, Daily Phenobarbital Inj, 260 mg= 2 mL, IV Push, Once, PRN Phenobarbital Inj, 65 mg= 1 mL, IV Push, Every 2 hours, PRN predniSONE 20 mg oral tablet, 40 mg, By Mouth, Daily pregabalin 25 mg oral capsule, 25 mg, By Mouth, Daily at bedtime Pyridoxine Tablet, 50 mg, By Mouth, Daily Remove Patch, 1 each, Topically, Daily Robitussin DM Liquid, 10 mL, By Mouth, Every 4 hours, PRN Simethicone Tablet, 80 mg, Chew, 3 times a day, PRN Thiamine Tablet, 100 mg, By Mouth, 2 times a day Home amLODIPine 10 mg oral tablet, 10 mg= 1 tablet, By Mouth, Daily amLODIPine 10 mg oral tablet, 10 mg= 1 tablet, By Mouth, Daily, 3 refills metoprolol 50 mg oral tablet, extended release, 50 mg= 1 tablet, By Mouth, Daily, 3 refills Metoprolol Succinate ER 50 mg oral tablet, extended release, 50 mg= 1 tablet, By Mouth, Daily pregabalin 25 mg oral capsule, 25 mg= 1 capsule, By Mouth, Daily at bedtime, 2 refills Allergies aspirin penicillins??(hives) traMADol??(racing thoughts) Social History [...] years: 37. Started at age: 15 Years. Psychiatric History Past??and??current psychiatric diagnoses: Depression History of psychiatric hospitalization: Reports being hospitalized in the past on a psychiatric unit at [facility] and another??few months ago. APTU in 2002. Past psychiatric treatments and medications: Wellbutrin, Vistaril, Xanax, Benadryl, trazodone, melatonin, Celexa, Prozac, amitriptyline, Lexapro, Klonopin, Remeron. No history of ECT treatments. Outpatient treatment providers: Denies having a psychiatrist or therapist in the outpatient setting.?? History of unsafe ideas and behaviors: Endorses hx of attempts but did not give details. ? Substance Use History Tobacco: -??has been smoking since he was 11 years old, has reduced used to 5 or 6 cigarettes per day Alcohol: -??drinking has increased since his mother in 10/2021, he now drinks a fifth of [employer] every day Other substances (marijuana, cocaine, heroin, hallucinogens (LSD, PCP), methamphetamines): daily marijuana use Prescribed or [id number]-oov-udngruz medications or supplements: - denies any past or current misuse Diagnoses: Alcohol use disorder. Has been to dual diagnosis units at [facility] (most recently??in 05/2022)??and [facility]. Multiple detoxes. Family History AAA - Abdominal aortic aneurysm: Mother. Congenital heart disease: Mother. Hyperlipidemia: Mother. Lupus 20-JAN-2015 22:35:10<$>: Sister. Father: History is unknown Brother: History is negative Immunizations Vaccine Date Status influenza virus vaccine, inactivated 08/08/2022 Given SARS-CoV-2 (COVID-19) mRNA-1273 vaccine 02/04/2021 Recorded SARS-CoV-2 (COVID-19) mRNA-1273 vaccine 01/07/2021 Recorded Influenza Virus Vaccine (oldterm) 06/24/2019 Recorded influenza virus vaccine, inactivated 09/21/2018 Given Comments : [09/21/2018] [facility] [id number] tetanus/diphtheria/pertussis, acel(Tdap) 01/12/2018 Given hepatitis B adult vaccine 09/09/2017 Given Comments : [09/09/2017] [facility]# [id number] Hepatitis A Adult Vaccine 09/09/2017 Given Comments : [09/09/2017] [facility]# [id number] influenza virus vaccine, inactivated 06/10/2017 Given Comments : [06/10/2017] [facility]: 22007-615-66 hepatitis B adult vaccine 04/09/2017 Given hepatitis B adult vaccine 03/10/2017 Given Hepatitis A Adult Vaccine 03/10/2017 Given pneumococcal 23-valent vaccine 02/18/2017 Given influenza virus vaccine, inactivated 10/23/2016 Given pneumococcal 23-valent vaccine - Not Given Comments : Patient Refuses Lab Results Event Name?? Event Result?? Normal Range?? Date/Time?? WBC 10.3 k/mm3 4 k/mm3 - 11 k/mm3 03/11/23 19:11:00 RBC 3.72 m/mm3??Low 4.7 m/mm3 - 6.1 m/mm3 03/11/23 19:11:00 Hgb 12.5 Gm/dL??Low 13.7 Gm/dL - 17.1 Gm/dL 03/11/23 19:11:00 Hct 37.7 %??Low 40.5 % - 50 % 03/11/23 19:11:00 MCV 101.3 femtoliters??High 80 femtoliters - 94 femtoliters 03/11/23 19:11:00 MCH 33.6 pg 27 pg - 34 pg 03/11/23 19:11:00 MCHC 33.2 g/dL 33 g/dL - 37 g/dL 03/11/23 19:11:00 Platelet Count 300 k/mm3 150 k/mm3 - 460 k/mm3 03/11/23 19:11:00 RDW-SD 47.1 femtoliters??High ?? 03/11/23 19:11:00 MPV 8.8 femtoliters??Low 9.4 femtoliters - 12.4 femtoliters 03/11/23 19:11:00 Nucleated RBC (Automated) 0 #/100 WBC'S ?? 03/11/23 19:11:00 Abs. NRBC 0 k/mm3 ?? 03/11/23 19:11:00 Abs. Neut 7.7 k/mm3??High 1.3 k/mm3 - 7 k/mm3 03/11/23 19:11:00 Abs. Lymph 1.5 k/mm3 0.8 k/mm3 - 3.1 k/mm3 03/11/23 19:11:00 Abs. Treasure 0.9 k/mm3 0.4 k/mm3 - 1.3 k/mm3 03/11/23 19:11:00 Abs. Eo 0.2 k/mm3 0 k/mm3 - 0.4 k/mm3 03/11/23 19:11:00 Abs. Baso 0.1 k/mm3 0 k/mm3 - 0.1 k/mm3 03/11/23 19:11:00 Neut % 74.4 % 44 % - 76 % 03/11/23 19:11:00 Lymph % 14.1 %??Low 15 % - 43 % 03/11/23 19:11:00 Treasure % 8.4 % 4.5 % - 10.5 % 03/11/23 19:11:00 Eos % 1.8 % 0 % - 6 % 03/11/23 19:11:00 Baso % 0.9 % 0 % - 2 % 03/11/23 19:11:00 Imm Gran 0.4 % ?? 03/11/23 19:11:00 Abs. Imm Gran 0 k/mm3 ?? 03/11/23 19:11:00 INR 1 0.9 ??- 1.1 03/11/23 23:11:00 Protime (PT) 10.2 seconds 9.2 seconds - 11.4 seconds 03/11/23 23:11:00 D-Dimer 0.89 mg/L FEU ?? 03/11/23 23:11:00 Sodium 138 mmol/L 133 mmol/L - 145 mmol/L 03/11/23 19:12:00 Potassium 4.3 mmol/L 3.6 mmol/L - 5.2 mmol/L 03/11/23 19:12:00 Chloride 98 mmol/L 98 mmol/L - 107 mmol/L 03/11/23 19:12:00 Bicarbonate Level 24 mmol/L 22 mmol/L - 29 mmol/L 03/11/23 19:12:00 Anion Gap 16 4 ??- 17 03/11/23 19:12:00 Glucose Level 79 mg/dL 70 mg/dL - 99 mg/dL 03/11/23 19:12:00 BUN 16 mg/dL 6 mg/dL - 20 mg/dL 03/11/23 19:12:00 Creatinine-Blood 1.3 mg/dL??High 0.7 mg/dL - 1.2 mg/dL 03/11/23 19:12:00 Estimated GFR Creatinine 64 ML/MIN/1.73 M2 ?? 03/11/23 19:12:00 Calcium 9.9 mg/dL 8.6 mg/dL - 10.5 mg/dL 03/11/23 19:12:00 Protein, Total 7 Gm/dL 6.2 Gm/dL - 8.2 Gm/dL 03/11/23 19:12:00 Albumin 4.5 Gm/dL 3.4 Gm/dL - 4.8 Gm/dL 03/11/23 19:12:00 Alkaline Phosphatase 145 units/L??High 40 units/L - 129 units/L 03/11/23 19:12:00 Lipase 16 units/L 13 units/L - 60 units/L 03/11/23 19:12:00 AST (SGOT) 26 units/L 0 units/L - 40 units/L 03/11/23 19:12:00 ALT (SGPT) 39 units/L 0 units/L - 41 units/L 03/11/23 19:12:00 Bilirubin, Total 0.5 mg/dL 0 mg/dL - 1.2 mg/dL 03/11/23 19:12:00 Bilirubin, Direct <0.2 0 mg/dL - 0.3 mg/dL 03/11/23 19:12:00 Bilirubin, Indirect Direct bilirubin is less than the measureable limit. Therefore, indirect 0 mg/dL - 0.7 mg/dL 03/11/23 19:12:00 High Sensitivity Troponin (HSTnT) 19 ng/L ?? 03/11/23 22:29:00 High Sensitivity Troponin (HSTnT) 19 ng/L ?? 03/11/23 21:06:00 High Sensitivity Troponin (HSTnT) 20 ng/L ?? 03/11/23 19:12:00 Ethanol, Serum or Plasma 86 mg/dL Abnormal ?? 03/11/23 19:12:00 Barbiturate Screen, Urine POSITIVE Abnormal ?? 03/12/23 08:17:00 Cannabinoid Screen, Urine POSITIVE Abnormal ?? 03/12/23 08:17:00 Cocaine Metabolite Screen, Urine NONE DETECTED ?? 03/12/23 08:17:00 Benzodiazepine Screen, Urine NONE DETECTED ?? 03/12/23 08:17:00 Amphetamine Screen, Urine NONE DETECTED ?? 03/12/23 08:17:00 PCP Screen, Urine NONE DETECTED ?? 03/12/23 08:17:00 COVID-19 by RT-PCR NEGATIVE ?? 03/12/23 00:41:00 ? * Irais Yates: PERFORM Event Display: Consultation Note Authored Date: Patient: ??DOMINGA MURRIETA ? Age:??57 Years?Sex:??Male?:??1965?? Reason for Consultation Addiction Med Consult - polysubstance use Requested by??Dr Teena Miranda History of Present Illness Dominga Murrieta is a 57 yo male with a PMHx of anxiety, depression, GERD, HTN, HLD. He was admitted 03/11 with complaints of left sided CP, SOB, and SI with plan to drink himself to . Pt has also been experiencing auditory and visual hallucinations. Reportedly his mother passed 1 yr ago and he hasbeen feeling depressed. ETOH level was 86, tox screen positive for barbiturates (given here) and marijuana. Pt is on a CIWA with PRN and scheduled phenobarbital. ?? Met with patient this morning while he was in the ED. He reports that he has continued to have both auditory and visual hallucinations while being here, but says these have been ongoing since before he started having any alcohol withdrawal symptoms. States that he has only been drinking regularly the past few days, prior to that he was sober for 16 days. He does not attribute this sobriety to anything in particular.??His longest sober time overall was 2.5 years, which took place in the early . He says he was living with his at the time, who did not liek his drinking, and that is why he was able to stop for so long. It does not sound like they are together any longer. He has been drinking a 6 pack a day recently. Says he tends to stick to beer. Does not report any withdrawal seizure history. Pt is open to starting a medication for alcohol cravings. Patient does endorse daily marijuana use, as well as smoking a 1/2 PPD of cigarettes. He was prescribed xanax in the past, but says he is no longer on it and has not sought it out through other avenues. He does not endorse use of any other substances, such as opioids, cocaine or other stimulants, illicitly obtained pills. Review of Systems Right ankle pain, anxiety. Physical Exam Vitals & Measurements T:??98.2?F?? TMIN:??97.6?F?? TMAX:??98.2?F?? HR:??73??(Peripheral)?? RR:??20?? BP:??133/78?? SpO2:??94%?? General:??well developed, well nourished,??appears to be stated age. Appears??comfortable??-??no distress,??no diaphoresis.??No obvious rashes,??no jaundice.??Breathing is??even and unlabored. Mental Status Exam: Appearance:??casual?? Attitude:??withdrawn? Eye contact:??avoidant Motor activity:??calm, no aberrant movements? Mood:??euthymic? Affect:??flat? Speech:??fluent, unimpaired? Judgment:??appears intact? Insight:??appears intact? Thought process:??linear? Reliability:??likely reliable source? Fund of knowledge:??intact Assessment/Plan Alcohol dependence (F10.20):??. Patient was counseled on consequences of local [employer] excessive ETOH consumption such as damage to thecardiovascular system, memory loss/dementia, falls/injury, cirrhosis, higher risk??for HCC,??liver failure, . Pt appeared somewhat receptive. ?? Patient is open to trying a medication to help with ETOH cravings. Pts AST/ALT are WNL, Cr at 1.3, a little elevated but not??enough to alter the plan. Once ETOH w/d is complete, start??naltrexone 50mg PO daily. If pt ends up receiving??multiple dosesof opioid medications for some reason before that time, will need to hold off 7 days. If pt is to d/c before that time, please??provide??(or recommend if transferring) on d/c with these??instructions. ? Pt has been referred to an area clinic for continuation of naltrexone should his PCP not be comfortable. Addiction coordinator, Joleen Christian,??completed this referral.??Her documentation, and information regarding this referral??can be found in [facility] under the 'clinical notes' tab > patient care documentation > consult notes (will be in one of the folders under here). Pt is to be assessed by psychiatry. Depending on their determination, will work on further referrals for treatment programs. ?? Marijuana use, continuous (F12.90):??. For harm reduction, advised patient to purchase from a dispensary to eliminate risk of potential for lacing/contamination.??Also discussed that use of edibles is preferable??to smoking,??as this prevents damage to the lungs. Discussed possibility that heavy use can prevent sobriety from other substances. Pt receptive.? Nicotine dependence (F17.200):??. 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 Pt did not appear particularly interested in quitting currently. Pt is currently on a nicotine patch here, can continue. ?? Recommendations communicated via cortext to Dr Dom Iyer Addiction??Service will continue to follow with this patient. Thank you for allowing us to participate in the care of this patient. Please contact me with any further questions or concerns. ?? Problem List/Past Medical [...] oral tablet, 10 mg, By Mouth, Daily Docusate/Senna Tablet, 1 tablet, By Mouth, 2 times a day, PRN Duoneb Inhalation Solution, 1 vials, BAND Nebulizer, Every 4 hours, PRN Enoxaparin Inj, 30 mg= 0.3 mL, Subcutaneous Injection, 2 times a day Folic Acid Tablet, 1 mg, By Mouth, Daily Melatonin Tablet, 3 mg, By Mouth, Daily at bedtime, PRN metoprolol 50 mg oral tablet, extended release, 50 mg, By Mouth, Daily MiraLax Powder, 17 Gm= 1 pack/packet, By Mouth, Daily, PRN Multivitamin Tablet, 1 tablet, By Mouth, Daily NaCL 0.9% Flush, 3 mL, IV Push, Every 8 hours NaCL 0.9% Flush, 3 mL, IV Push, Every 8 hours, PRN Nicotine Topical, 14 mg, Topically, Daily PHENobarbital 30 mg oral tablet, 60 mg, By Mouth, Daily Phenobarbital Inj, 260 mg= 2 mL, IV Push, Once, PRN Phenobarbital Inj, 65 mg= 1 mL, IV Push, Every 2 hours, PRN predniSONE 20 mg oral tablet, 40 mg, By Mouth, Daily pregabalin 25 mg oral capsule, 25 mg, By Mouth, Daily at bedtime Pyridoxine Tablet, 50 mg, By Mouth, Daily Remove Patch, 1 each, Topically, Daily Robitussin DM Liquid, 10 mL, By Mouth, Every 4 hours, PRN Simethicone Tablet, 80 mg, Chew, 3 times a day, PRN Thiamine Tablet, 100 mg, By Mouth, 2 times a day Home amLODIPine 10 mg oral tablet, 10 mg= 1 tablet, By Mouth, Daily amLODIPine 10 mg oral tablet, 10 mg= 1 tablet, By Mouth, Daily, 3 refills metoprolol 50 mg oral tablet, extended release, 50 mg= 1 tablet, By Mouth, Daily, 3 refills Metoprolol Succinate ER 50 mg oral tablet, extended release, 50 mg= 1 tablet, By Mouth, Daily pregabalin 25 mg oral capsule, 25 mg= 1 capsule, By Mouth, Daily at bedtime, 2 refills Allergies aspirin penicillins??(hives) traMADol??(racing thoughts) Social History [...] vaccine, inactivated 09/21/2018 Given Comments : [09/21/2018] [facility] [id number] tetanus/diphtheria/pertussis, acel(Tdap) 01/12/2018 Given hepatitis B adult vaccine 09/09/2017 Given Comments : [09/09/2017] [facility]# 13470-058-12 Hepatitis A Adult Vaccine 09/09/2017 Given Comments : [09/09/2017] [facility]# [id number] influenza virus vaccine, inactivated 06/10/2017 Given Comments : [06/10/2017] [facility]: 59277-373-98 hepatitis B adult vaccine 04/09/2017 Given hepatitis B adult vaccine 03/10/2017 Given Hepatitis A Adult Vaccine 03/10/2017 Given pneumococcal 23-valent vaccine 02/18/2017 Given influenza virus vaccine, inactivated 10/23/2016 Given pneumococcal 23-valent vaccine - Not Given Comments : Patient Refuses * Joleen Christian: PERFORM, SIGN, VERIFY Event Display: Consultation Note Authored Date: [id number] Patient: DOMINGA MURRIETA Age: 57 years Sex: Male : 1965 Associated Diagnoses: None Author: Joleen Christian Met with patient this morning to discuss addiction resources. Patient is interested in MAT in whicha referral was submitted. Patient has an upcoming appointment 04/09/2023 at 2:00pm with [facility] for Naltrexone. No other referrals were needed at this time. Addiction Consultation Team [address] [place] [id number] Patient: Dominga Murrieta (: 1965) Date: 03/12/2023 You have been referred to the following programs: [facility] [address] [place] [id number] Appointment: 04/09/2023 at 2:00pm for Naltrexone. History and physical note * Event Display: History and Physical Hospital Authored Date: [id number] HISTORY AND PHYSICAL DATE: 03/12/2023 PRIMARY CARE PHYSICIAN: Ga Adkins M.D. REASON FOR ADMISSION: 1. Pleuritic chest pain. 2. Alcohol dependence with alcohol withdrawal and hallucinations. 3. Suicidal ideations. HISTORY OF PRESENT ILLNESS: Mr. Murrieta is a 57-year-old male with a past medical history including severe alcohol dependence as well as anxiety and depression. He suffered from recent losses in his family and reports that his alcohol intake has significantly increased since. He reports that he is drinking to the point that he is trying to kill himself with this. His chest pain is rather diffuse. A chest x-ray was unremarkable. A CT angio of the chest shows emphysema and an 8 mm ground-glass nodule that needs followup. It also shows a tiny area of possible old PE, but no acute PE (reviewed with radiologist). His troponin is negative and his EKG does not show acute ischemic changes. His chestpain resolved spontaneously. The patient started to be in alcohol withdrawal, but is now well controlled on a phenobarbital protocol. PAST MEDICAL HISTORY: 1. Severe alcohol dependence. 2. Hepatic steatosis. 3. Anxiety/depression. 4. Hypertension. 5. Hyperlipidemia. 6. COPD/emphysema/asthma. 7. History of anoxic brain injury. 8. Tobacco dependence. 9. Status post esophageal dilatation. 10. History of DVT and now a CT evidence of possible tiny PE at that time. 11. GERD. 12. Right ankle spiral fracture in 12/2022, apparently seen by orthopedics at [facility]. 13. History of right rib fractures. MEDICATIONS: The patient is somewhat unclear about his medications, but confirms that he is taking bupropion and buspirone. He also has been on clonidine in the past, but ran out. ALLERGIES: ASPIRIN, PENICILLIN, TRAMADOL. SOCIAL HISTORY: The patient has a long history of alcohol dependence. He is also smoking tobacco since age 11. He has a history of polysubstance abuse including heroin, cocaine. He is . His girlfriend recently passed. FAMILY HISTORY: Polysubstance abuse, alcohol dependence, Alzheimer's dementia and depression. REVIEW OF SYSTEMS: The patient denies further chest pain. He has no shortness of breath or cough. Since on phenobarbital, he has only minimal withdrawal symptoms now. He complains of persistent rightankle pain since his fracture in 12/2022. He reports suicidal ideation. The remainder of the reviewof systems was reviewed and is negative. PHYSICAL EXAMINATION: VITAL SIGNS: The patient is afebrile, temperature is 98.2 degrees Fahrenheit, heart rate 78, respiratory rate 16, blood pressure 127/84, and pulse ox 94% on room air. GENERAL APPEARANCE: In no acute distress, alert and oriented x3, pleasant, comfortable. HEENT: Normocephalic, atraumatic. Oropharynx clear. No thrush. NECK: Supple. LUNGS: Clear to auscultation bilaterally. CARDIOVASCULAR: Regular rate and rhythm. No rubs, murmurs or gallops appreciated. ABDOMEN: Soft, nontender, nondistended. Bowel sounds positive. No CVA tenderness. EXTREMITIES: Without cyanosis, clubbing, or edema. Right lower extremity in boot. SKIN: Without rash. JOINTS: Normal except for right ankle, I am unable to examine. NEUROLOGIC: Grossly nonfocal. LABORATORY DATA: WBC 10.3, hemoglobin 12.5, platelet count 300. INR 1.0. D-dimer 0.89. Sodium 138, potassium 4.3, chloride 98, bicarbonate 24, anion gap 16, glucose 79, creatinine 1.3, BUN 16. LFTs normal. Lipase normal. High-sensitivity troponin 20, 19, 19. Alcohol level 86. COVID-19 PCR negative. IMAGING: Chest x-ray, no acute abnormality. CT angio of chest, tiny linear filling defect in the right lower lobe basilar trunk, more suggestive of sequelae of remote prior PE and acute embolus, moderate emphysema, ground-glass nodules measuring up to 8 mm in the right lower lobe. Short-term followup in 3-6 months recommended. Otherwise, no acute chest abnormality. IMPRESSION: A 57-year-old male with a past medical history including polysubstance abuse, alcohol dependence, tobacco dependence, anxiety and depression, who presented to the ED with left pleuritic chest pain, alcohol withdrawal and hallucinations. Workup for his chest pain including chest x-ray, CT angio of the chest and troponin T levels as well as EKG are unremarkable. His chest pain resolved spontaneously. He was started on a phenobarbital protocol for his alcohol withdrawal. He feels currently well controlled and has no further hallucinations. He was already seen by addiction medicine and is agreeable to start naltrexone 50 mg p.o. daily once his alcohol withdrawal is complete. He alsowas referred to an area clinic for continuation of the naltrexone prescription. In addition, he wasjust seen by the psychiatrist for suicidal ideations. PLAN: 1. Alcohol dependence. 2. Alcohol withdrawal with hallucinations. -- CIWA protocol with phenobarbital. -- Multivitamin, folic acid, thiamine. -- Follow up with addiction medicine. As outlined above, the patient will be started on naltrexone 50 mg p.o. daily once alcohol withdrawal has completed. -- Treatment of underlying depression, anxiety. 3. Tobacco dependence. -- Smoking cessation reviewed with the patient. -- Nicotine replacement therapy was started. 4. COPD, emphysema, asthma. -- Stable. -- Smoking cessation. -- DuoNebs p.r.n. 5. Depression/anxiety. 6. Suicidal ideation. -- The patient already seen by psychiatry. The patient will be admitted to [facility] once medically stable. -- Continue current home regimen with buspirone and bupropion. 7. CT finding of ground-glass nodules up to 8 mm. -- Outpatient CT followup in 3-6 months. The patient was notified and is aware of this recommendation and the importance of followup. 8. Recent right ankle spiral fracture. -- The patient apparently was seen at an outside orthopedic surgeon, probably at the [facility]. -- Our orthopedic team is willing to give recommendations regarding weightbearing status once repeat x-rays were obtained, but the patient preferably should follow up with his outside hospital provider who saw him initially. 9. DVT prophylaxis, Lovenox 30 mg subcutaneously b.i.d. CODE STATUS: FULL CODE. DISPOSITION: Transfer to [facility] once medically stable, hopefully as soon as tomorrow. Dictated by: Teena Miranda M.D. Signing Clinician: Teena Miranda M.D. Dictated: 03/12/2023 04:49:29 Transcribed: 12:37:46 PM Transcribed by: MAYRA DocID: [id number] PRELIMINARY REPORT UNLESS MANUALLY/ELECTRONICALLY SIGNED Cardiology * Event Display: Cardiac Rhythm Strips Authored Date: Hospital Progress note * Chantel KEY, Orville Velasquez: PERFORM Event Display: Progress Note Hospital Authored Date: Patient: ??DOMINGA MURRIETA ? Age:??57 Years?Sex:??Male?:??1965?? Subjective Patient seen for follow-up. He reported to RN that he wants to go home. ?? On interview, patient says he is miserable' about being here and wants to go home. He denies SI. Discussed with patient that there is a waiting list to get to an inpatient psych facility but he is on it and the team has been looking for a bed. He says he feels dirty here and can't shower or use the bathroom without being observed. He says he wants to go home and shower, feed his dog, and pay hisrent. I asked if there was someone else who could help with these tasks and he says he has no one. I told patient I wanted him to get help for his mood but that it may take some time for a bed to open up. Patient again says he just wants to leave b/c it's horrible here. He says he's not suicidal.Discussed that he should come back or call 911 or the crisis line if those feelings come back. Patient agrees. I recommended psych follow-up and let him know i would put referral info into his discharge instructions. He asks if he can get help with a ride home. Review of Systems All systems reviewed and negative except as noted in HPI. Objective Vitals & Measurements T:??98.1?F?? TMIN:??97.7?F?? TMAX:??98.7?F?? HR:??61??(Peripheral)?? RR:??20?? BP:??123/74?? SpO2:??99%?? Mental Status Mental Status Examination Appearance: short hair, intact grooming Attitude toward examiner:??Cooperative Activity:??normal Mood:? It's horrible here Affect:??irritable Speech:??regular rate, volume, and prosody Language:??fluent Thought Process:??linear, goal-directed Thought Content:??no delusional content ?Suicidal Ideation:??denies Perceptions:??none Cognition: ?Alert ?Oriented to??person, place, time, and situation ?Memory:??intact to recent events ?Concentration:??intact to conversation ?Fund of knowledge: appropriate to age ?Abstract reasoning:??intact Insight:??fair Judgement:??fair ?? Neurological Examination Cranial Nerves: EOMI, face symmetric, no dysarthria?? Motor: mild resting tremor in??b/l UEs Assessment/Plan 57 yo male with a history of DVT, GERD, HTN, HLD, alcohol use disorder, learning disability,??and anxiety/depression who presented with chest pain and SI with plan and is being admitted for pneumoniaand alcohol withdrawal. ??Patient is severely depressed with hopelessness, worthlessness, anhedonia,??and SI with plan to drink himself to .?? He has no current outpatient mental health providers??and has been drinking heavily. ??Given his significant psychiatric symptoms??he will require??psychiatric hospitalization for safety, containment,??medication management, and aftercare planning. ?? 03/16: patient now denying SI. States he wants to go home to pay his rent, feed his dog, and take a shower. He indicates that waiting in the hospital has been unpleasant for him and he is not willing to do so any longer. Given he denies SI and is future-oriented, he no longer meets section 12 criteria. He was given follow-up referral information. ?? Diagnosis: MDD, moderate AUD, severe ?? Recommendations: -d/c 1:1 and suicide precautions -no psychiatric contraindication to discharge -follow-up info placed in patient's discharge instructions ?? Recommendations sent to Dr. Simon. ?? Orville Golden MD Attending, Psychiatry Consultation Service [facility] ?? 35 min spent reviewing the chart, examining the patient, assessing suicidality, and??counseling thepatient on??mental health follow-up??and coordinating care with primary team. ?? * Alfred Altman MD, Jerome Cordon: PERFORM Event Display: Progress Note Hospital Authored Date: [id number] Patient: ??DOMINGA MURRIETA ? Age:??57 Years?Sex:??Male?:??1965?? Subjective Patient is seen at bedside for alcohol withdrawal and SI he is not scoring?? at [facility] for last few days reporting sever depression with active SI c/w sitter at bedside and suicidal precautions psych on board and will need [facility] admission--was contacted and he is on bed search--pending Review of Systems General: Patient is awake, denied any fever, chills or shivering, depressed Eye: No redness, no jaundice, no pain or discharge ENT: no nasal discharge or rhinorrhea Cardiovascular: no chest pain, no palpitation Pulmonary: No dyspnea, no wheezing, no cough or??sputum GI: No abdominal pain, no nausea, no vomiting, no constipation or diarrhea : No dysuria or blood with the urine, making good urine Extremities:right ankle pain at site of fracture Skin: No rashes or itching , no jaundice Neuro: Awake, alert, no focal weakness, no numbness or tingling Psych: increased anxiety, depressed Allergies Allergies ?(Active and Proposed Allergies Only) traMADol? (Severity: Unknown severity, Onset: Unknown) ?Reactions: racing thoughts penicillins? (Severity: Unknown severity, Onset: Unknown) ?Reactions: hives aspirin? (Severity: Unknown severity, Onset: Unknown) ? Objective Vital Signs?? Temperature: 98.1 DegF (03/16/23 11:43:00) Temperature Route: Oral (03/16/23 11:43:00) Pulse Rate: 61 bpm (03/16/23 11:43:00) Respiratory Rate: 20 br/min (03/16/23 11:43:00) Systolic Blood Pressure: 123 mm Hg (03/16/23 11:43:00) Diastolic Blood Pressure: 74 mm Hg (03/16/23 11:43:00) Blood pressure sites: Arm, left (03/16/23 11:43:00) Mean Arterial Pressure: 90 mm Hg (03/16/23 11:43:00) Pulse Pressure: 49 mm Hg (03/16/23 11:43:00) Oxygen Saturation: 99 % (03/16/23 11:43:00) Mode of Delivery (Oxygen): Room air (03/16/23 11:00:00) Early Warning Score: 0 (03/16/23 11:44:10) ? Intake/Output? 03/12 01:10 03/16 07:00 03/15 07:00 03/14 07:00 03/13 07:00 ?? 03/16 11:59 03/16 11:59 03/16 06:59 03/15 06:59 03/14 06:59 Intake ? 1760 ?0 ?720 ?600 ?200 Output ?0 ?0 ?0 ?0 ?0 Net Total ? 1760 ?0 ?720 ?600 ?200 ? Urine Count ? 11 ?0 ?3 ?5 ?3 ? Physical Exam General: Awake, not in??distress, looks depressed Head and neck: Atraumatic, no neck swelling Eye: no injection or jaundice, EOMI. Cardiac: RRR, no murmurs, gallops or rubs, no S3 or S4. Pulmonary: Normal breathing sounds bilaterally with good air entery with??no wheezing or??rhonchi Abdominal: No tenderness or rebound tenderness, normal BS, no HSM Skin: No rashes, jaundice or scratching rogers Extremities: No edema, no swelling or varicose veins MSK: limited ROM of right ankle Neuro: awake, alert oriented X3, no focal weakness. Psych: depressed Results Recent Labs No labs resulted between 03/15/2023 00:00 and 03/16/2023 11:59? Abnormal Labs No lab data available. ?? Assessment/Plan ??A 57-year-old male with a past medical history including polysubstance abuse, alcohol dependence,tobacco dependence, anxiety and depression, who presented to the ED with left pleuritic chest pain,alcohol withdrawal and hallucinations. ??Workup for his chest pain including chest x-ray, CT angio of the chest and troponin T levels as well as EKG are unremarkable. ??His chest pain resolved spontaneously. ??He was started on a phenobarbital protocol for his alcohol withdrawal. ??He feels currently well controlled and has no further hallucinations. ??He was already seen by addiction medicine and is agreeable to start naltrexone 50 mg p.o. daily once his alcohol withdrawal is complete. ??He also was referred to an area clinic for continuation of the naltrexone prescription. In addition, he was just seen by the psychiatrist for suicidal ideations. ?? Alcohol dependence. Alcohol withdrawal with hallucinations.:no further withdrawal symptoms CIWA protocol with phenobarbital. Multivitamin, folic acid, thiamine. Follow up with addiction medicine. As outlined above, the patient will be started on naltrexone 50 mg p.o. daily once alcohol withdrawal has completed. Treatment of underlying depression, anxiety. ?? Tobacco dependence. Smoking cessation reviewed with the patient. Nicotine replacement therapy was started. ?? COPD, emphysema, asthma. Stable. Smoking cessation. DuoNebs p.r.n. ?? Depression/anxiety. Suicidal ideation. The patient already seen by psychiatry. ??The patient will be admitted to [facility] once medically stable. Continue current home regimen with buspirone and bupropion. ?? CT finding of ground-glass nodules up to [address] followup in 3-6 months. ??The patient was notified and is aware of this recommendation and the importance of followup. ?? Recent right ankle spiral fracture. ??The patient apparently was seen at an outside orthopedic surgeon,?? at the [facility]. Our orthopedic team is willing to give recommendations regarding weightbearing status once repeat x-rays were obtained, but the patient preferably should follow up with his outside hospital provider who saw him initially. ?? DVT prophylaxis, Lovenox 30 mg subcutaneously b.i.d. CODE STATUS: ??FULL CODE. DISPOSITION: ??Transfer to [facility]??--pending for bed availability ? * Irais Yates: PERFORM, SIGN, VERIFY Event Display: Progress Note Hospital Authored Date: [id number] Patient: DOMINGA MURRIETA Age: 57 years Sex: Male : 1965 Associated Diagnoses: None Author: Irais Yates Pt is still planned to go inpatient for psych treatment, is currently on a bed search. Will defer substance use treatment program referrals for now, these can be completed once pt is on the psych unit to coordinate for possible transfer to a program once he is wrapping up on the psych unit. Pt does have an appt set for 04/09 for continuation of naltrexone in the community. Please see Addiction Coordinator note. Addiction team will sign off for now. Updated Dr Simon via cortext. Note * Alfred Altman MD, Jerome Cordon: PERFORM Event Display: Discharge/Transfer Note Hospital Authored Date: [id number] Patient: ??DOMINGA MURRIETA ? Age:??57 Years?Sex:??Male?:??1965?? Patient Information Discharge Location: 4 Primary Care Physician: Ga Adkins MD Admit Date/Time: 03/12/23 01:10 Discharge Disposition Discharge Disposition: ?? Discharge Diagnosis Alcohol dependence (F10.20) Chest pain at rest (R07.9) Marijuana use, continuous (F12.90) Nicotine dependence (F17.200) Suicidal ideation (R45.851) Anxiety disorder ?? _ Discharge Medications Amlodipine (amLODIPine 10 mg oral tablet)?10?Milligram?1?tablet?By Mouth?Daily BuPROpion (buPROPion 150 mg/24 hours (XL) oral tablet, extended release)?150?Milligram?By Mouth?Daily BusPIRone (busPIRone 10 mg oral tablet)?5?Milligram?By Mouth?Daily fluticasone-vilanterol?Inhalation?Daily Folic Acid (folic acid 1 mg oral tablet)?1?Milligram?By Mouth?Daily HydrOXYzine (hydrOXYzine pamoate 25 mg oral capsule)?50?Milligram?By Mouth?3 times a day?as needed?Anxiety Metoprolol (metoprolol 50 mg oral tablet, extended release)?50?Milligram?1?tablet?ByMouth?Daily Oxycodone (oxyCODONE 5 mg oral tablet)?5?Milligram?By Mouth?Every 6 hours?as needed?for 5?Days?Pain , Severe Pregabalin (pregabalin 25 mg oral capsule)?1?capsule?25?Milligram?By Mouth?Daily at bedtime Pyridoxine (pyridoxine 50 mg oral tablet)?50?Milligram?By Mouth?Daily Thiamine (thiamine 100 mg oral tablet)?100?Milligram?By Mouth?2 times a day ? Allergies Allergies ?(Active and Proposed Allergies Only) traMADol? (Severity: Unknown severity, Onset: Unknown) ?Reactions: racing thoughts penicillins? (Severity: Unknown severity, Onset: Unknown) ?Reactions: hives aspirin? (Severity: Unknown severity, Onset: Unknown) ? Objective ??A 57-year-old male with a past medical history including polysubstance abuse, alcohol dependence,tobacco dependence, anxiety and depression, who presented to the ED with left pleuritic chest pain,alcohol withdrawal and hallucinations. ??Workup for his chest pain including chest x-ray, CT angio of the chest and troponin T levels as well as EKG are unremarkable. ??His chest pain resolved spontaneously. ??He was started on a phenobarbital protocol for his alcohol withdrawal. ??He feels currently well controlled and has no further hallucinations. ??He was already seen by addiction medicine and is agreeable to start naltrexone 50 mg p.o. daily once his alcohol withdrawal is complete. ??He also was referred to an area clinic for continuation of the naltrexone prescription. In addition, he was just seen by the psychiatrist for suicidal ideations. ?? Alcohol dependence. Alcohol withdrawal with hallucinations.:no further withdrawal symptoms CIWA protocol with phenobarbital. Multivitamin, folic acid, thiamine. Follow up with addiction medicine. As outlined above, the patient will be started on naltrexone 50 mg p.o. daily once alcohol withdrawal has completed. Treatment of underlying depression, anxiety. no further withdrawal symptoms ?? Tobacco dependence. Smoking cessation reviewed with the patient. ? COPD, emphysema, asthma. Stable. Smoking cessation. DuoNebs p.r.n. ?? Depression/anxiety. Suicidal ideation. The patient already seen by psychiatry. ?? initial plan was The patient will be admitted to [facility] . Continue current home regimen with buspirone and bupropion. seen by psych team 03/16 and cleared him for discharge?? as he no longer active for suicide ?? Psych recommendation 03/16/2023 patient now denying SI. States he wants to go home to pay his rent, feed his dog, and take a shower. He indicates that waiting in the hospital has been unpleasant for him and he is not willing to do so any longer. Given he denies SI and is future-oriented, he no longer meets section 12 criteria. Hewas given follow-up referral information. ?? -d/c 1:1 and suicide precautions -no psychiatric contraindication to discharge -follow-up info placed in patient's discharge instructions ?? CT finding of ground-glass nodules up to [address] followup in 3-6 months. ??The patient was notified and is aware of this recommendation and the importance of followup. ?? Recent right ankle spiral fracture. The patient apparently was seen at an outside orthopedic surgeon,?? at the [facility]. patient preferably should follow up with his outside hospital provider who saw him initially. ?? walker prescribed and PT ? Measurements?? Height: 185 cm (03/16/23) Weight: 73.5 kg (03/12/23) Dry Weight: 73 kg (03/12/23) Body Mass Index: 21.48 kg/m2 (03/12/23) ? Vital Signs?? Temperature: 98.1 DegF (03/16/23 11:43:00) Temperature Route: Oral (03/16/23 11:43:00) Pulse Rate: 61 bpm (03/16/23 11:43:00) Respiratory Rate: 20 br/min (03/16/23 11:43:00) Systolic Blood Pressure: 123 mm Hg (03/16/23 11:43:00) Diastolic Blood Pressure: 74 mm Hg (03/16/23 11:43:00) Blood pressure sites: Arm, left (03/16/23 11:43:00) Mean Arterial Pressure: 90 mm Hg (03/16/23 11:43:00) Pulse Pressure: 49 mm Hg (03/16/23 11:43:00) Oxygen Saturation: 99 % (03/16/23 11:43:00) Mode of Delivery (Oxygen): Room air (03/16/23 11:00:00) Early Warning Score: 0 (03/16/23 11:44:10) ? Intake/Output? 03/12 01:10 03/16 07:00 0702 07:00 03/14 07:00 03/13 07:00 ?? 03/16 14:12 03/16 14:12 03/16 06:59 02 06:59 03/14 06:59 Intake ? 1760 ?0 ?720 ?600 ?200 Output ?0 ?0 ?0 ?0 ?0 Net Total ? 1760 ?0 ?720 ?600 ?200 ? Urine Count ? 11 ?0 ?3 ?5 ?3 ? . Physical Exam General: Awake, not in??distress Head and neck: Atraumatic, no neck swelling Eye: no injection or jaundice, EOMI. Cardiac: RRR, no murmurs, gallops or rubs, no S3 or S4. Pulmonary: Normal breathing sounds bilaterally with good air entery with??no wheeing or??rhonchi Abdominal: No tenderness or rebound tenderness, normal BS, no HSM Skin: No rashes, jaundice or scratching rogers Extremities: No edema, no swelling or varicose veins Neuro: awake, alert oriented X3, no focal weakness. Psych: Not anxious, denied any active suicidal or homicidal thoughts Pending Results Add On Lab Order ordered on 03/12/2023 Add On Lab Order ordered on 03/12/2023 Methylmalonic Acid ordered on 03/13/2023 Follow-Up Appointments Added Follow Up ?Time Frame ?Comments Ga Adkins?1 week Patient Instructions You were evaluated by the [facility] Psychiatric Consultation Service.?? We recommend that you obtain outpatient mental health follow-up. Please contact one of the following [facility] clinics for an appointment: [facility]: ? [facility]: [phone] [facility]: [phone] If you are experiencing a mental health crisis, you can call the [facility] Crisis Hotline at [phone]. You can also call 911 or come to the nearest emergency room if you are experiencing suicidal thoughts, hallucinations, or paranoia.?? Post Discharge Care Discharge ?03/16/23 14:12:00 EDT Home Health Face to Face *Denotes mandatory joiner ?? *I certify that this patient is under my care and that I or an allowed non- physician working with me had a face to face encounter with the patient on this date:??03/16/2023 14:15 ?? *The encounter with the patient was in whole, or in part, for the following medical condition, which is the primary diagnosis(es) for home health care:??Alcohol dependence (F10.20) Chest pain at rest (R07.9) Marijuana use, continuous (F12.90) Nicotine dependence (F17.200) Suicidal ideation (R45.851) Anxiety disorder ? *Select the indications for the discipline/s that are being arranged for this patient. Nursing (select all that apply): [_] None [XXX_] Medication management (reconciliation, teaching)?? [_] Chronic disease management?? [_] Wound care and treatment?? [_] Home safety evaluation [_] Administer SQ/IM/IV medications?? [_] Cath care?? [_] Drain care?? [_] Trach or GT care?? Other _ Occupation Therapy (select all that apply): [_] None [_] ADL Management [_] Fall prevention training [_] Energy conservation [_] Cognitive training Other _ Physical Therapy (select all that apply): [_] None [XXX_] Functional mobility training [_] Home exercise program to strengthen [_] Increase ROM?? [_XXX] Falls prevention training [_] Home maintenance program for chronic disease Other _ Speech Therapy (select all that apply): [_] None [_] Swallow evaluation and training [_] Speech and language training [_] Cognitive training to process, organize, and/or recall information Other _ ? *Homebound due to (select all that apply): [XXX_] Inability to leave home without assistance/supervision [_] Inability to ambulate without assistance [_] Pain [_] Decreased strength and endurance [_] Unsteady gait [_] Severe SOB and fatigue [_] Impaired transfers [_] Inability to negotiate stairs [_] Limited weight bearing [_] Mental status change? *Physician Signature:??Jerome Simon MD ?? *By signing this, I certify that I have personally evaluated the patient and agree with the findings and recommendations as documented above. ? Results Discharge Labs BLOOD COUNT & DIFF WBC 6.4 k/mm3 ()?? 03/14/2023 01:51 RBC 3.57 m/mm3 (Low)?? 03/14/2023 01:51 Hgb 12.0 Gm/dL (Low)?? 03/14/2023 01:51 Hct 35.1 % (Low)?? 03/14/2023 01:51 MCV 98.3 femtoliters (High)?? 03/14/2023 01:51 MCH 33.6 pg ()?? 03/14/2023 01:51 MCHC 34.2 g/dL ()?? 03/14/2023 01:51 Platelet Count 278 k/mm3 ()?? 03/14/2023 01:51 RDW-SD 42.4 femtoliters ()?? 03/14/2023 01:51 MPV 9.2 femtoliters (Low)?? 03/14/2023 01:51 Nucleated RBC (Automated) 0.0 #/100 WBC'S ()?? 03/14/2023 01:51 Abs. NRBC 0.0 k/mm3 ()?? 03/14/2023 01:51 Abs. Neut 6.2 k/mm3 ()?? 03/13/2023 01:23 Abs. Lymph 1.5 k/mm3 ()?? 03/13/2023 01:23 Abs. Treasure 0.7 k/mm3 ()?? 03/13/2023 01:23 Abs. Eo 0.0 k/mm3 ()?? 03/13/2023 01:23 Abs. Baso 0.1 k/mm3 ()?? 03/13/2023 01:23 Neut % 72.8 % ()?? 03/13/2023 01:23 Lymph % 17.5 % ()?? 03/13/2023 01:23 Treasure % 8.4 % ()?? 03/13/2023 01:23 Eos % 0.1 % ()?? 03/13/2023 01:23 Baso % 0.6 % ()?? 03/13/2023 01:23 Imm Gran 0.6 % ()?? 03/13/2023 01:23 Abs. Imm Gran 0.1 k/mm3 ()?? 03/13/2023 01:23 ?? CARDIAC High Sensitivity Troponin (HSTnT) 19 ng/L ()?? 03/11/2023 22:29 ? CHEM GENERAL Sodium 138 mmol/L ()?? 03/14/2023 01:51 Potassium 3.7 mmol/L ()?? 03/14/2023 01:51 Chloride 102 mmol/L ()?? 03/14/2023 01:51 Bicarbonate Level 24 mmol/L ()?? 03/14/2023 01:51 Anion Gap 12 ()?? 03/14/2023 01:51 Glucose Level 87 mg/dL ()?? 03/14/2023 01:51 BUN 22 mg/dL (High)?? 03/14/2023 01:51 Creatinine-Blood 0.9 mg/dL ()?? 03/14/2023 01:51 Estimated GFR Creatinine 95 ML/MIN/1.73 M2 ()?? 03/14/2023 01:51 Calcium 8.4 mg/dL (Low)?? 03/14/2023 01:51 Magnesium 1.7 mg/dL ()?? 03/14/2023 01:51 Protein, Total 6.4 Gm/dL ()?? 03/13/2023 01:23 Albumin 4.0 Gm/dL ()?? 03/13/2023 01:23 Alkaline Phosphatase 136 units/L (High)?? 03/13/2023 01:23 Lipase 16 units/L ()?? 03/11/2023 19:12 AST (SGOT) 19 units/L ()?? 03/13/2023 01:23 ALT (SGPT) 27 units/L ()?? 03/13/2023 01:23 Bilirubin, Total 0.3 mg/dL ()?? 03/13/2023 01:23 Bilirubin, Direct <0.2 mg/dL ()?? 03/13/2023 01:23 Bilirubin, Indirect Direct bilirubin is less than the measureable limit. Therefore, indirect mg/dL ()?? 03/13/2023 01:23 ?? COAG INR 0.9 ()?? 03/13/2023 01:23 Protime (PT) 9.9 seconds ()?? 03/13/2023 01:23 D-Dimer 0.89 mg/L FEU ()?? 03/11/2023 23:11 ? SEROLOGY INF DISEASE Hepatitis C Ab NEGATIVE (N)?? 03/11/2023 19:12 HIV 4th Generation Ab-Ag Result NEGATIVE (N)?? 03/11/2023 19:12 ?? TOXICOLOGY/TDM Ethanol, Serum or Plasma 86 mg/dL (Abnormal)?? 03/11/2023 19:12 Barbiturate Screen, Urine POSITIVE (Abnormal)?? 03/12/2023 08:17 Cannabinoid Screen, Urine POSITIVE (Abnormal)?? 03/12/2023 08:17 Cocaine Metabolite Screen, Urine NONE DETECTED ()?? 03/12/2023 08:17 Benzodiazepine Screen, Urine NONE DETECTED ()?? 03/12/2023 08:17 Amphetamine Screen, Urine NONE DETECTED ()?? 03/12/2023 08:17 PCP Screen, Urine NONE DETECTED ()?? 03/12/2023 08:17 Phenobarb Level 9.5 mg/L (Low)?? 03/13/2023 01:23 ?? URINE OTHER Est Creatinine Clearance 94.63 mL/min ()?? 03/14/2023 03:57 ? VIROLOGY COVID-19 by RT-PCR NEGATIVE ()?? 03/12/2023 00:41 ? Microbiology ?? COVID-19 (Novel Coronavirus), Rapid PCR?? Completed?? Source: Nasal Body Site: Nose Collected Dt/Tm: 03/12/2023 00:41 Last Updated Dt/Tm: 03/12/2023 01:55 ? >47_ minutes spent on discharge * Yoko Rodriguez RN: PERFORM Event Display: Patient Education/Instruction Authored Date: [id number] Inpatient Adult Discharge Instructions [address] [address] Name: DOMINGA MURRIETA : 1965 Visit: 03/12/2023 01:10:00 Current Date: 03/16/2023 14:37 Account: [id number] Inpatient Adult Discharge Instructions We would like [...] and their families. Surveys are administered by [employer]. ?? If further treatment with your primary care physician or another doctor is recommended, it is important for you to keep the appointment. Call your primary care physician or return to the Emergency Department immediately if your condition worsens, fails to improve, or new symptoms develop. If you need to find a doctor, you can call [facility] for a referral at [phone] or toll free at [phone]) or log in to [email or web address] ?? You can view and manage your care through the patient portal or by using a health care zach of your choosing. [employer] is a website that allows you to securely view your medical information including your hospital discharge summary, office visit summaries, medications and follow-up visits. You can also request appointments, renew medications, and request access to your medical information using a health care zach of your choosing, or just ask a question. You can enroll at [email or web address] or register during your next office visit. You have been discharged from [facility], Patient Care Unit: W4. If you have any questions regarding these instructions after you leave, please call us and we will be happy to assist you. [facility] Your Care Team Attending Physician Jerome Simon Sr, MD Consulting Providers Rayshawn Borjas MD Discharging Providers Jerome Simon Sr, MD Reason for Admission SI Your Diagnosis Chest pain at rest Suicidal ideation Alcohol dependence Marijuana use, continuous Nicotine dependence Tests Performed Below is a partial list of the tests performed during your hospitalization. You may have had other tests and procedures not included in this list. Please discuss all test results with your provider. Amphetamine Urine Screen ANTI-HEPATITIS C Barbiturate Urine Screen Basic Metabolic Panel Benzodiazepine Urine Screen Cannabinoid Urine Screen CBC CBC w/ Differential Cocaine Urine Screen COVID-19 (Novel Coronavirus), Rapid PCR D Dimer ETHANOL Hepatic Function Panel High??Sensitivity??Troponin T HIV AB-AG 4TH GENERATION INR LIPASE Mg Level PCP Urine with Confirmation Phenobarbital Level Troponin T, High Sensitivity Chest Angio CT XR Ankle Min 3 Views Right XR Chest 2 Views Frontal and Lat Primary Care Provider Ga Adkins MD Advance Directive Health Care Proxy on File Yes - Health Care Proxy Discharge Vitals Temperature: 98.1 DegF Height: 185 cm Pulse Rate: 61 bpm Weight: 73.5 kg Respiratory Rate: 20 br/min Body Mass Index: 21.48 kg/m2 Systolic Blood Pressure: 123 mm Hg Body surface area: 1.94 Diastolic Blood Pressure: 74 mm Hg ?? Oxygen Saturation: 99 % ?? Studies Pending All tests and labs ordered during this hospital stay have been completed unless listed below. Please discuss all pending results with your provider listed above in these instructions. ?? Add On Lab Order (Lab Add On Order) Methylmalonic Acid What to do next Instructions From Your Doctor You were evaluated by the [facility] Psychiatric Consultation Service.?? We recommend that you obtain outpatient mental health follow-up. Please contact one of the following [facility] clinics for an appointment: [facility]: ? [facility]: [phone] [facility]: [phone] If you are experiencing a mental health crisis, you can call the [facility] Crisis Hotline at [phone]. You can also call 911 or come to the nearest emergency room if you are experiencing suicidal thoughts, hallucinations, or paranoia.?? Discharge Orders You Need to Schedule the Following Appointments Follow Up with??Ga Adkins When:??Within 1 week Discharge Medications GLENNYDOMINGA JACQUES :1965 Visit Date:03/12/2023 Medications: Please continue your medications until treatment is completed or stopped by your provider. Medications not listed below should be discontinued. Discuss any questions related to medications with your provider. What How Much When Instructions Next Dose New BuPROpion (buPROPion 150 mg/ 24 hours (XL) oral tablet, extended release) 150 Milligram Oral Daily New BusPIRone (busPIRone 10 mg oral tablet) 5 Milligram Oral Daily New fluticasone-vilanterol Inhalation Daily New Folic Acid (folic acid 1 mg oral tablet) 1 Milligram Oral Daily Pickup at [facility] 3 New Oxycodone (oxyCODONE 5 mg oral tablet) 5 Milligram Oral Every 6 hours as needed for Pain , Severe Duration: 5 Days Printed Prescription as needed New Pyridoxine (pyridoxine 50 mg oral tablet) 50 Milligram Oral Daily Pickup at [facility] 3 New Thiamine (thiamine 100 mg oral tablet) 100 Milligram Oral Twice a day Pickup at [facility] 3 Tonight 9pm Changed Amlodipine (amLODIPine 10 mg oral tablet) 1 tab(s) Oral Daily Changed HydrOXYzine (hydrOXYzine pamoate 25 mg oral capsule) 50 Milligram Oral 3 times a day as needed for Anxiety as needed Changed Metoprolol (metoprolol 50 mg oral tablet, extended release) 1 tab(s) Oral Daily Unchanged Pregabalin (pregabalin 25 mg oral capsule) 1 capsule Oral Daily at Bedtime tonight 9pm Pharmacy Information [facility] 3: [address], [place] [id number] [phone] Test Results Below is a partial list of the most recent Laboratory test results done prior to this discharge. You may have had other tests and procedures not included in this list. Please discuss all test resultswith your provider. Est Creatinine Clearance - 94.63 mL/min (03/14/2023) Amphetamine Urine Screen (03/12/2023) ???Amphetamine Screen, Urine - NONE DETECTED ANTI-HEPATITIS C (03/11/2023) ???Hepatitis C Ab - NEGATIVE Barbiturate Urine Screen (03/12/2023) ???Barbiturate Screen, Urine - POSITIVE Basic Metabolic Panel (03/14/2023) ???Sodium - 138 mmol/L???Potassium - 3.7 mmol/L???Chloride - 102 mmol/L???Bicarbonate Level - 24 mmol/L???Anion Gap - 12???Glucose Level - 87 mg/dL???BUN - 22 mg/dL???Creatinine-Blood - 0.9 mg/dL???Estimated GFR Creatinine - 95 ML/MIN/1.73 M2???Calcium - 8.4 mg/dL Benzodiazepine Urine Screen (03/12/2023) ???Benzodiazepine Screen, Urine - NONE DETECTED Cannabinoid Urine Screen (03/12/2023) ???Cannabinoid Screen, Urine - POSITIVE CBC (03/14/2023) ???WBC - 6.4 k/mm3???RBC - 3.57 m/mm3???Hgb - 12.0 Gm/dL???Hct - 35.1 %???MCV - 98.3 femtoliters???MCH - 33.6 pg???MCHC - 34.2 g/dL???Platelet Count - 278 k/mm3???RDW-SD - 42.4 femtoliters???MPV - 9.2 femtoliters???Nucleated RBC (Automated) - 0.0 #/100 WBC'S???Abs. NRBC - 0.0 k/mm3 CBC w/ Differential (03/13/2023) ???WBC - 8.6 k/mm3???RBC - 3.58 m/mm3???Hgb - 12.2 Gm/dL???Hct - 35.7 %???MCV - 99.7 femtoliters???MCH - 34.1 pg???MCHC - 34.2 g/dL???Platelet Count - 307 k/mm3???RDW-SD - 43.3 femtoliters???MPV - 8.9 femtoliters???Nucleated RBC (Automated) - 0.0 #/100 WBC'S???Abs. NRBC - 0.0 k/mm3???Abs. Neut - 6.2 k/mm3???Abs. Lymph - 1.5 k/mm3???Abs. Treasure - 0.7 k/mm3???Abs. Eo - 0.0 k/mm3???Abs. Baso - 0.1 k/mm3???Neut % - 72.8 %???Lymph % - 17.5 %???Treasure % - 8.4 %???Eos % - 0.1 %???Baso % - 0.6 %???Imm Gran- 0.6 %???Abs. Imm Gran - 0.1 k/mm3 Cocaine Urine Screen (03/12/2023) ???Cocaine Metabolite Screen, Urine - NONE DETECTED COVID-19 (Novel Coronavirus), Rapid PCR (03/12/2023) ???COVID-19 by RT-PCR - NEGATIVE D Dimer (03/11/2023) ???D-Dimer - 0.89 mg/L FEU ETHANOL (03/11/2023) ???Ethanol, Serum or Plasma - 86 mg/dL Hepatic Function Panel (03/13/2023) ???Protein, Total - 6.4 Gm/dL???Albumin - 4.0 Gm/dL???Alkaline Phosphatase - 136 units/L???AST (SGOT) - 19 units/L? ?ALT (SGPT) - 27 units/L? ?Bilirubin, Total - 0.3 mg/dL? ?Bilirubin, Direct - <0.2 mg/dL???Bilirubin, Indirect - Direct bilirubin is less than the measureable limit. Therefore, indirect High??Sensitivity??Troponin T (03/11/2023) ???High Sensitivity Troponin (HSTnT) - 20 ng/L HIV AB-AG 4TH GENERATION (03/11/2023) ???HIV 4th Generation Ab-Ag Result - NEGATIVE INR (03/13/2023) ???INR - 0.9???Protime (PT) - 9.9 seconds LIPASE (03/11/2023) ???Lipase - 16 units/L Mg Level (03/14/2023) ???Magnesium - 1.7 mg/dL PCP Urine with Confirmation (03/12/2023) ???PCP Screen, Urine - NONE DETECTED Phenobarbital Level (03/13/2023) ???Phenobarb Level - 9.5 mg/L Troponin T, High Sensitivity (03/11/2023) ???High Sensitivity Troponin (HSTnT) - 19 ng/L Allergies (NKA means No Known Allergies) aspirin [...] Belongings I fully understand and agree that [facility] accepts no responsibility for all my [...] and belongings home. ?? Safe envelope number: [id number] Review of Valuable and Belonging List: With patient, With witness Date for Pt to Sign Valuables/Belongings: 03/12/23 16:42:00 ?? Other Discharge Information ? Pulmonary Rehab Status?? Pulmonary Rehab Discharge Status?? Respiratory Rate: 20 br/min ? Common Emergency Awareness Tips IS [...] are strongly encouraged to quit. Please call [facility] FindTheBest Link at [phone] or [phone] ([phone]) or log in to [email or web address] for referrals to smoking cessation programs. ?? 736 Suicide & Crisis Lifeline is available 06/04 if you or someone you know needs to find a reason to keep living. By calling 772 you'll be connected to a skilled, trained counselor at a crisis center in your area. INPATIENT DISCHARGE INSTRUCTIONS SIGNATURE PAGE DOMINGA MURRIETA Location:[facility] Registration Date and Time:03/12/2023 01:10 EDT Primary Care Physician: Lucille KEY, Ga Pollard, Attending Physician: Alfred Altman MD, Jerome Cordon, I DOMINGA MURRIETA, have received the above patient education materials/instructions and have verbalized understanding. If ambulance or transport services are being used I further acknowledge being given a choice of service. ?? If you need to contact me, please call me at this number: . Patient/Neon Sign Erector Name: Patient/Neon Sign Erector Signature: Relationship to Patient: Witness Name/Signature: Date: * Jerome Simon Sr, MD: PERFORM, SIGN, VERIFY Event Display: Patient Education Handout Authored Date: [id number] Patient Care team information Care Team Personnel Name: Zaida Hall RN Position: [facility] RN Member Role: Primary Care Nurse Name: Yuly Vásquez RN Position: [facility] RN Member Role: Primary Care Nurse Name: Tootie Tamayo RN Position: [facility] RN Member Role: Primary Care Nurse Name: Alyson Cage NP Position: [facility] PCO Associate Professional Member Role: Primary Care Nurse Address: Address: [address] [place] [email or web address] Name: Gulshan Moulton RN Position: [facility] RN Member Role: Primary Care Nurse Name: Ga Adkins MD Position: [facility] Physician - Primary Care Member Role: PCP Address: Address: [address] [place] [id number] [[email or web address]] Name: Farnaz Adames Position: [facility] AMB Nurse Member Role: Lifetime Consulting Physician Name: Kristofer Segundo RN Position: [facility] RN Member Role: Primary Care Nurse Name: Sarah Jackson RN Position: [facility] RN Member Role: Primary Care Nurse Name: Rita Edmonds RN Position: [facility] AMB Nurse Member Role: Primary Care Nurse Name: Sumit Salas RN Position: [facility] RN Member Role: Primary Care Nurse Name: Radha DONALD Attending Position: [facility] ED Medicine MD Name: Rubens Bishop RN Position: [facility] ED RN W/OE and Tasks Member Role: Patient Care Provider Name: Anupam Edmondson Position: [facility] ED TA [facility] Member Role: Lieutenant Ballistics Name: Kaiser Banuelos MD Position: [facility] Resident Member Role: ED Resident Address: Address: [address] [place] [address] [place] [address]- [place] Care Team Related Persons Name: TANIA COYNE Address: [place] [address] Name: ROMERO SOLER Address: [address] [address]
--- OUTSIDE RECORDS SUMMARY | 2023-04-09 20:21 | XMS_ITS | Continuity of Care Document ---
Author Name Unknown Organization [facility] Andrzej lt Address [address] [place] [address]- Care Team Providers Care Oracle Drm Consultant Name Role Phone Lucille KEY, Ga Pollard Primary Care Physician Encounter [facility] [place] Date(s): 03/15/21 - 04/14/21 [facility] Adult [address] [place] [address]- Allergies, Adverse Reactions, Alerts Substance Reaction Severity [...] Not Given Patient Refuses 1Result Comment: [09/21/2018] [facility] [id number] 2Result Comment: [06/10/2017] [facility]: [id number] 3Result Comment: [09/09/2017] [facility]# [id number] 4Result Comment: [09/09/2017] [facility]# [id number] Medications ALPRAZolam 0.5 mg oral tablet 0.5 mg, 1, tablet, By Mouth, 3 times a day, PRN, Refills 0, Maintenance, for anxiety, 08/05/17 11:11:03 Start Date: 08/05/17 Status: Ordered amLODIPine 10 mg oral tablet 10 mg, 1, tablet, By Mouth, Daily, # 90 tablet, Refills 3, Tot. Refills 3, Maintenance, 02/06/21 15:19:00 EDT, Route to Pharmacy Electronically, [facility], 185.42, cm, 10/15/20 8:52:00 EST, Height Start Date: 02/06/21 Status: Ordered Compression Stockings See Instructions, # 1 each, Maintenance, surgical, thigh high length 20-30 mm Hg, 04/20/20 9:37:00 EDT, Supply Start Date: 04/20/20 Status: Ordered D3-50 oral capsule 1 capsule, By Mouth, Every week, # 12 capsule, 0 Refills, Maintenance, 03/19/21 12:03:00 EDT, [facility], 185.42, cm, 03/08/21 10:27:00 EDT, Height Start Date: 03/19/21 Status: Ordered lisinopril 20 mg oral tablet 20 mg, 1, tablet, By Mouth, Daily, # 90 tablet, Refills 3, Tot. Refills 3, Maintenance, 02/06/21 15:19:00 EDT, Route to Pharmacy Electronically, [facility], 185.42, cm, 10/15/20 8:52:00 EST, Height Start Date: 02/06/21 Status: Ordered metoprolol 50 mg oral tablet, extended release 50 mg, 1, tablet, By Mouth, Daily, # 90 tablet, Refills 3, Tot. Refills 3, Maintenance, 02/06/21 15:18:00 EDT, Route to Pharmacy Electronically, [facility], replaces IR metoprolol, 185.42, cm, [...] 03/01/21 8:55:00 EDT, Route to Pharmacy Electronically, [id number], [facility], 185.42, cm, 10/15/20 8:52:00 EST, Height Start Date: 03/01/21 Status: Ordered Proventil HFA 90 mcg/inh inhalation aerosol with adapter 2, puffs, Inhalation, 4 times a day, PRN, # 25 Gm, Refills 2, Tot. Refills 2, Maintenance, 204:54:00 EST, Aerosol, Route to Pharmacy Electronically, [id number], [facility], 185.42, cm, [...]
--- OUTSIDE RECORDS SUMMARY | 2023-04-09 20:21 | XMS_ITS | Continuity of Care Document ---
Author Name Unknown Organization [facility] Andrzej lt Address [address] [place] [address]- Care Team Providers Care Automobile [employer] Membership Sales Agent Name Role Phone Not on Staff, PCP Primary Care Physician Unavail able [facility] Date(s): 09/03/22 - 10/03/22 [facility] Adult [address] [place] [address]- Attending Physician: AdmChloe ag Admitting Physician: Admtr, Ar8 Referring Physician: Admtr, [...] Given Patient Refuses 1Result Comment: [09/21/2018] [facility] [id number] 2Result Comment: [06/10/2017] [facility]: [id number] 3Result Comment: [09/09/2017] [facility]# [id number] 4Result Comment: [09/09/2017] [facility]# [id number] Medications amLODIPine 10 mg oral tablet 10 mg, 1, tablet, By Mouth, Daily, # 90 tablet, Refills 3, Tot. Refills 3, Maintenance, 08/08/22 10:26:00 EST, Route to Pharmacy Electronically, [facility], 186, cm, 08/08/22 9:54:00 EST, Height, 66, kg, 07/10/22 17:36:00 EDT, Dry Weight Start Date: 08/08/22 Stop Date: 08/29/22 Status: Ordered metoprolol 50 mg oral tablet, extended release 50 mg, 1, tablet, By Mouth, Daily, # 90 tablet, Refills 3, Tot. Refills 3, Maintenance, 08/08/22 10:26:00 EST, Route to Pharmacy Electronically, [facility], replaces IR metoprolol, 186, cm, 08/08/22 9:54:00 EST, Height, 66, kg, 07/10/22... Start Date: 08/08/22 Stop Date: 08/29/22 Status: Ordered pregabalin 25 mg oral capsule 1 capsule = 25 mg, By Mouth, Daily at bedtime, # 30 capsule, 2 Refills, Maintenance, 08/08/22 10:30:00 EST, [email or web address], Partial fill upon patient request [...] D deficiency Confirmed Active 1While living in [place] Social History Social History Type Response Smoking Status Current every day sm oker; Type: Cigarettes; Tobacco use times per day: 1 PPD now down to 1 pack/week; Number of years: 36; Total pack years: 36; Started at age: 15; entered on: 03/02/17 Sex EKG study * Event Display: EKG Authored Date: Note * Event Display: Non BH Lab Results Authored Date: * Event Display: Non BH Lab Results Authored Date: Patient Care team information Care Team Personnel Name: Zaida Hall RN Position: [facility] RN Member Role: Primary Care Nurse Name: Yuly Vásquez RN Position: [facility] RN Member Role: Primary Care Nurse Name: Alyson Cage NP Position: [facility] PCO Associate Professional Member Role: Primary Care Nurse Address: Address: [address] [place] [address] Name: Gulshan Moulton RN Position: [facility] RN Member Role: Primary Care Nurse Name: Farnaz Adames Position: [facility] PCO RN Member Role: Lifetime Consulting Physician Name: Not on Staff, PCP Position: [facility] Physician (General Medicine) Member Role: PCP Name: Sarah Jackson RN Position: [facility] RN Member Role: Primary Care Nurse Name: Rita Edmonds RN Position: [facility] AMB Nurse Member Role: Primary Care Nurse Name: Sumit Salas RN Position: [facility] RN Member Role: Primary Care Nurse Care Team Related Persons Name: TANIA COYNE Address: [place] [address] Name: ROMERO SOLER Address: home [address] [place] [id number]
--- OUTSIDE RECORDS SUMMARY | 2023-04-09 20:21 | XMS_ITS | Continuity of Care Document ---
Author Name Unknown Organization [facility]ta Andrzej lt Address [address] [place] [address]- Care Team Providers Care Carriage Feeder Name Role Phone Lucille KEY, Ga Pollard Primary Care Physician [phone] [facility]counter [facility] Date(s): 11/13/21 - 12/13/21 [facility] Adult [address] [place] [address]- Allergies, Adverse Reactions, Alerts Substance Reaction Severity [...] Given Patient Refuses 1Result Comment: [09/21/2018] [facility] [id number] 2Result Comment: [06/10/2017] [facility]: [id number] 3Result Comment: [09/09/2017] [facility]# [id number] 4Result Comment: [09/09/2017] [facility]# [id number] Medications ALPRAZolam 0.5 mg oral tablet 0.5 mg, 1, tablet, By Mouth, 3 times a day, PRN, Refills 0, Maintenance, for anxiety, 08/05/17 11:11:03 Start Date: 08/05/17 Status: Ordered amLODIPine 10 mg oral tablet 10 mg, 1, tablet, By Mouth, Daily, # 90 tablet, Refills 3, Tot. Refills 3, Maintenance, 02/06/21 15:19:00 EDT, Route to Pharmacy Electronically, [facility], 185.42, cm, 10/15/20 8:52:00 EST, Height Start Date: 02/06/21 Status: Ordered Compression Stockings See Instructions, # 1 each, Maintenance, surgical, thigh high length 20-30 mm Hg, 04/20/20 9:37:00 EDT, Supply Start Date: 04/20/20 Status: Ordered D3-50 oral capsule 1 capsule, By Mouth, Every week, # 12 capsule, 0 Refills, Maintenance, 03/19/21 12:03:00 EDT, [facility], 185.42, cm, 03/08/21 10:27:00 EDT, Height Start Date: 03/19/21 Status: Ordered lisinopril 20 mg oral tablet 20 mg, 1, tablet, By Mouth, Daily, # 90 tablet, Refills 3, Tot. Refills 3, Maintenance, 02/06/21 15:19:00 EDT, Route to Pharmacy Electronically, [facility], 185.42, cm, 10/15/20 8:52:00 EST, Height Start Date: 02/06/21 Status: Ordered metoprolol 50 mg oral tablet, extended release 50 mg, 1, tablet, By Mouth, Daily, # 90 tablet, Refills 3, Tot. Refills 3, Maintenance, 02/06/21 15:18:00 EDT, Route to Pharmacy Electronically, [facility], replaces IR metoprolol, 185.42, cm, [...] 03/01/21 8:55:00 EDT, Route to Pharmacy Electronically, [id number], [facility], 185.42, cm, 10/15/20 8:52:00 EST, Height Start Date: 03/01/21 Status: Ordered Proventil HFA 90 mcg/inh inhalation aerosol with adapter 2, puffs, Inhalation, 4 times a day, PRN, # 25 Gm, Refills 2, Tot. Refills 2, Maintenance, 204:54:00 EST, Aerosol, Route to Pharmacy Electronically, [id number], [facility], 185.42, cm, [...] D deficiency(Confirmed) Active 1While living in [place] Social History Social History Type Response Smoking Status Current every day haily rocha; Type: Cigarettes; Tobacco use times per day: 1 PPD now down to 1 pack/week; Number of years: 36; Total pack years: 36; Started at age: 15; entered on: 03/02/17 Sex
--- OUTSIDE RECORDS SUMMARY | 2023-04-09 20:21 | XMS_ITS | Continuity of Care Document ---
Author Name Unknown Organization [facility] Andrzej lt Address [address] [place] [address]- Care Team Providers Care Cloth Dyeing Range Tender Name Role Phone Lucille KEY, Ga Pollard Primary Care Physician [phone] [facility]counter [facility] Date(s): 11/12/21 - 12/12/21 [facility] Adult [address] [place] [address]- Allergies, Adverse Reactions, Alerts Substance Reaction Severity [...] Not Given Patient Refuses 1Result Comment: [09/21/2018] [facility] [id number] 2Result Comment: [06/10/2017] [facility]: [id number] 3Result Comment: [09/09/2017] [facility]# [id number] 4Result Comment: [09/09/2017] [facility]# [id number] Medications ALPRAZolam 0.5 mg oral tablet 0.5 mg, 1, tablet, By Mouth, 3 times a day, PRN, Refills 0, Maintenance, for anxiety, 08/05/17 11:11:03 Start Date: 08/05/17 Status: Ordered amLODIPine 10 mg oral tablet 10 mg, 1, tablet, By Mouth, Daily, # 90 tablet, Refills 3, Tot. Refills 3, Maintenance, 02/06/21 15:19:00 EDT, Route to Pharmacy Electronically, [facility], 185.42, cm, 10/15/20 8:52:00 EST, [...] 02/06/21 15:19:00 EDT, Route to Pharmacy Electronically, [facility], 185.42, cm, 10/15/20 8:52:00 EST, Height Start Date: 02/06/21 Status: Ordered metoprolol 50 mg oral tablet, extended release 50 mg, 1, tablet, By Mouth, Daily, # 90 tablet, Refills 3, Tot. Refills 3, Maintenance, 02/06/21 15:18:00 EDT, Route to Pharmacy Electronically, [facility], replaces IR metoprolol, 185.42, cm, [...] 03/01/21 8:55:00 EDT, Route to Pharmacy Electronically, [id number], [facility], 185.42, cm, 10/15/20 8:52:00 EST, Height Start Date: 03/01/21 Status: Ordered Proventil HFA 90 mcg/inh inhalation aerosol with adapter 2, puffs, Inhalation, 4 times a day, PRN, # 25 Gm, Refills 2, Tot. Refills 2, Maintenance, 204:54:00 EST, Aerosol, Route to Pharmacy Electronically, [id number], [facility], 185.42, cm, [...] Vitamin D deficiency(Confirmed) Active 1While living in [place] Social History Social History Type Response Smoking Status Current every day haily rocha; Type: Cigarettes; Tobacco use times per day: 1 PPD now down to 1 pack/week; Number of years: 36; Total pack years: 36; Started at age: 15; entered on: 03/02/17 Sex
[2023-04-09 20:35] VITALS: BP 109/84; PULSE 98; RESP 18; TEMP 36.6; O2SAT 94
[2023-04-09 22:28] VITALS: BMI 25.3
--- NOTE | 2023-04-09 22:29 | PC.ADMIT ---
PT is 57 year old Nepali speaking male that arrived on this unit as a direct admit via stretcher at 20:36 from [facility]. Legal Status: conditional voluntary. PT was placed on 5 minute safety checks due to orthopedic boot on left foot due to fracture. PT has a distal fibular fx that he did not follow up on since December of 2022. PT has a history of requiring IPLOC but unable to verbalize dates/reasons for in patient stays. PT has been grieving the loss of his Mother since September of this year and his PCP stopped accepting his insurance so he has lost providers. PT lacks support other than his nephew of whom is also his HCP . PT presented to [facility] ED secondary to increased depression, anxiety and feeling overwhelmed. PT endorses both AH/VH. PT has not been able to stay at his home in which he shared with his mother due to overwhelming feelings of depression and has been staying in a hotel. PT denies current SI but did state I am just tired of being here . COVID neg tox + for THC and barbituates. PT admits to drinking at least 1/5 of Juventino Danels daily and is experiencing mild withdrawal at this time (Dr. Alexander Estrada made aware via tiger text). Admission orders obtained, legals signed, and med rec completed. Admission skin check completed by this adjusto writer operator and Horace Pickett RN, no acute findings and no contraband found. PT currently resting in bed, respiration even and unlabored, in no apparent distress. VS stable. Nothing further to report at this time.
[2023-04-09] MEDS: LORazepam 1 MG TABLET PO (23:09)
[2023-04-09] MEDS: Melatonin 3 MG TABLET 9 MG PO (23:09)
[2023-04-09] MEDS: buPROPion HCL 75 MG TABLET PO (23:10)
[2023-04-09] MEDS: Prazosin HCL 1 MG CAPSULE 2 MG PO (23:10)
[2023-04-09] MEDS: Gabapentin 100 MG CAPSULE PO (23:10)
[2023-04-09] MEDS: busPIRone HCl 10 MG TABLET PO (23:11)
[2023-04-09] MEDS: chlorproMAZINE HCl 100 MG TABLET 200 MG PO (23:15)
[2023-04-09] MEDS: oxyCODONE HCl Immed Release 5 MG TABLET PO (23:18)
[2023-04-10] MEDS: chlorproMAZINE HCl 100 MG TABLET PO (03:47)
[2023-04-10] MEDS: LORazepam 1 MG TABLET 2 MG PO (03:52)
[2023-04-10] MEDS: oxyCODONE HCl Immed Release 5 MG TABLET PO ×3 (05:42→21:56)
[2023-04-10] MEDS: Acetaminophen 325 MG TABLET 650 MG PO ×2 (05:43→12:24)
[2023-04-10 08:00] VITALS: BP 84/59; PULSE 98; RESP 16; TEMP 36.5; O2SAT 98
[2023-04-10] MEDS: Omeprazole 20 MG CAPSULE.DR PO (08:19)
[2023-04-10] MEDS: Gabapentin 100 MG CAPSULE PO ×2 (08:20→21:58)
[2023-04-10] MEDS: busPIRone HCl 10 MG TABLET PO (08:20)
[2023-04-10] MEDS: buPROPion HCL 75 MG TABLET PO (08:20)
[2023-04-10] MEDS: Nicotine 21 MG PATCH.TD24 TRANSDERMA (08:22)
[2023-04-10 08:31] LABS: Estimated Average Glucose 94 mg/dL; Hemoglobin A1c % 4.9 %
[2023-04-10] MEDS: hydrOXYzine HCL 25 MG TABLET PO ×2 (08:43→16:12)
[2023-04-10 08:46] LABS: Alanine Aminotransferase 57 U/L (0-40); Albumin Level 4.3 g/dL (3.5-5.0); Alkaline Phosphatase 109 U/L (39-117); Anion Gap 23 (12-20); Aspartate Amino Transferase 36 U/L (5-37); Bilirubin Total 0.5 mg/dL (0.0-1.0); Blood Urea Nitrogen 26 mg/dL (9-16); Calcium 10.6 mg/dL (8.4-10.2); Carbon Dioxide 21 mmol/L (22-29); Chloride 100 mmol/L (96-108); Cholesterol 318 mg/dL; Creatinine Clr Calc Pharmacy 64.5; Estimated Glomerular Filt Rate 56; Glucose Fasting 80 mg/dL (60-99); HDL Cholesterol 42 mg/dL; Potassium 3.5 mmol/L (3.3-5.1); Sodium 140 mmol/L (135-145); Total Protein 7.8 g/dL (6.5-8.0); Triglycerides 460 mg/dL
[2023-04-10 08:58] LABS: Free T4 (Free Thyroxine) 0.92 ng/dL (0.71-1.85); Thyroid Stimulating Hormone 7.43 uIU/mL (0.32-4.0)
[2023-04-10 09:09] LABS: Folate 16.4 ng/mL (> or = 4.0); Vitamin B12 407 pg/mL (200-900)
[2023-04-10] MEDS: Lidocaine 4 % Patch ADH..PATCH 1 PATCH TRANSDERMA (12:21)
[2023-04-10] MEDS: busPIRone HCl 5 MG TABLET 15 MG PO ×2 (14:20→21:59)
[2023-04-10] MEDS: chlorproMAZINE HCl 100 MG TABLET 200 MG PO ×2 (14:20→21:57)
--- NOTE | 2023-04-10 15:34 | P.CONHOSP_ITS ---
History of Present Illness Data of Consult Service Date: 04/10/23 Primary Care Provider: None Physician HPI Reason for consult: Admission H&P Pt is a 57-year-old male with a PMH significant for?HTN, GERD, alcohol use disorder, chronic back and right shoulder pain on chronic opioids, depression, and anxiety who is admitted to psychiatry unit for increasing depression and anxiety and feeling overwhelmed. Patient also endorses auditory and visual hallucinations. Medical consult for admission H&P. Patient has a significant list of chronic medical complaints: chronic back and shoulder pain, as well as left-sided tooth pain he ascribes to his teeth rotting from multiple previous intubations. Pt is also currently wearing a walking boot on right foot from an ankle fracture in December of this year. Reports he re-fractured it a month ago when he slipped on a shoe getting out of bed at night to use the bathroom. Patient complains of intermittent chest pain for the past month. Patient presented with similar complaints 3 days prior to [facility] on 04/07/2023. Cardiac workup negative. Currently patient is not experiencing chest pain or pressure. Denies fever, chills, nausea, vomiting, abdominal pain. No shortness of breath. Labs reviewed, significant for BUN 26, creatinine 1.32, TSH 7.43, T4 0.92, triglycerides 460, and cholesterol 318. [facility] Medical History (Updated 04/10/23 @ 18:08 by HOLLI James) Chronic diarrhea Colitis GERD (gastroesophageal reflux disease) Heavy tobacco smoker History of colitis HTN (hypertension) Opiate dependence Polysubstance use disorder Schizoaffective disorder Family History Mother Alzheimer disease Multiple sclerosis Social History Household Members: None Housing: Unknown / Unable to assess Housing Other:: hotel Do you presently have visiting nurse or other home services: No Alcohol intake: current Alcohol intake frequency: 3 or more drinks per day Patient Tobacco Use Status: Current everyday Tobacco user Tobacco use type: Cigarette Cigarette Packs Per Day: 1 Cigarettes Per Day: 20.0 Smoked in Last 30 Days: Yes e-Cigarette/Vaping Use: Never Used Patient Interested in Nicotine Replacement: Yes Patient Given Instructions on How to Stop Smoking: Yes Date Education Initiated: 04/09/23 Second Hand Smoke Exposure: No Use of substances other than those prescribed or required for medical reasons: Yes Substance Use Type: Marijuana Substance Use Frequency: Chronic Longstanding Last Used Substance: Just Prior to Admission Currently Displaying Signs/Symptoms of Drug Intoxication Withdrawal: No Any prior treatment program specific to substance use: No Have you been hit, kicked, punched, or otherwise hurt by someone within the past year? If so, by whom?: No Do you feel safe in your current relationship?: No Current Relationship Is there a partner from a previous relationship who is making you feel unsafe now?: No Are you made to feel afraid or neglected: No Advance Directives: No Advance Directives Information Provided: No Do you have thoughts of harming others: None Do you have a plan to hurt others: No Plan Recently lost weight without trying: No Nutrition Risks: No Nutritional Risk Poor oral hygiene: Yes Meds Allergies Allergy/AdvReac Type Severity Reaction Status Date / Time aspirin [ASA] Allergy Unknown FACIAL Unverified 05/31/20 16:36 SWELLING Penicillins [PENICILLINS] Allergy Unknown HIVES Unverified 05/31/20 16:36 tramadol [TRAMADOL] AdvReac Unknown NAUSEA & Unverified 05/30/22 10:16 VOMITING trazodone AdvReac Severe Anaphylaxis Uncoded 04/10/23 11:22 Active Medications: Current Medications Acetaminophen (Acetaminophen 325 Mg Tablet) 650 mg PO Q6H PRN PRN Reason: Headache/Pain Mild Scale (1-3) Last Admin: 04/10/23 12:24 Dose: 650 mg Al Hydroxide/Mg Hydroxide (Magnesium Hydrox/Alum Hydrox 30 Ml Oral.Susp) 30 ml PO Q6H PRN PRN Reason: Heartburn/Nausea Albuterol Sulfate (Albuterol Sulfate 90 Mcg 8 Gm Inhaler) 2 puff INHALE RQ4H PRN PRN Reason: wheeze Amlodipine Besylate (Amlodipine Besylate 10 Mg Tablet) 10 mg PO DAILY [facility]; Protocol Last Admin: 04/10/23 08:51 Dose: Not Given Benztropine Mesylate (Benztropine Mesylate 1 Mg Tablet) 1 mg PO BID PRN PRN Reason: Extrapyramidal Effects/Symptoms Bupropion HCl (Bupropion Hcl Xl 300 Mg Tab.Er.24h) 300 mg PO DAILY [facility] Buspirone HCl (Buspirone Hcl 5 Mg Tablet) 15 mg PO TID [facility] Last Admin: 04/10/23 14:20 Dose: 15 mg Chlorpromazine HCl (Chlorpromazine Hcl 100 Mg Tablet) 200 mg PO TID [facility] Last Admin: 04/10/23 14:20 Dose: 200 mg Chlorpromazine HCl (Chlorpromazine Hcl 100 Mg Tablet) 200 mg PO BEDTIME PRN PRN Reason: psychosis,sleep Folic Acid (Folic Acid 1 Mg Tablet) 1 mg PO DAILY [facility] Gabapentin (Gabapentin 100 Mg Capsule) 100 mg PO BID [facility] Last Admin: 04/10/23 08:20 Dose: 100 mg Hydroxyzine HCl (Hydroxyzine Hcl 25 Mg Tablet) 25 mg PO Q6H PRN PRN Reason: Anxiety Last Admin: 04/10/23 08:43 Dose: 25 mg Levothyroxine Sodium (Levothyroxine Sodium 25 Mcg Tablet) 25 mcg PO DAILY@0600 [facility] Lidocaine (Lidocaine 4 % Patch Adh..Patch) 1 patch TRANSDERMA DAILY [facility]; Protocol Last Admin: 04/10/23 12:21 Dose: 1 patch Lorazepam (Lorazepam 1 Mg Tablet) 1 mg PO Q2H PRN PRN Reason: CIWA 8-11 Last Admin: 04/09/23 23:09 Dose: 1 mg Lorazepam (Lorazepam 1 Mg Tablet) 2 mg PO Q2H PRN PRN Reason: CIWA 12-15 Last Admin: 04/10/23 03:52 Dose: 2 mg Lorazepam (Lorazepam 1 Mg Tablet) 3 mg PO Q2H PRN PRN Reason: CIWA > 15; and call Magnesium Hydroxide (Milk Of Magnesia 30 Ml Oral.Susp) 30 ml PO DAILY PRN PRN Reason: Constipation Melatonin (Melatonin 3 Mg Tablet) 9 mg PO DAILY PRN PRN Reason: Insomnia Last Admin: 04/09/23 23:09 Dose: 9 mg Metoprolol Succinate (Metoprolol Succinate Er 50 Mg Tab.Er.24h) 50 mg PO DAILY [facility]; Protocol Last Admin: 04/10/23 08:51 Dose: Not Given Multivitamins/Vitamin C (Multivitamin Tablet) 1 tab PO DAILY [facility] Nicotine (Nicotine 21 Mg Patch.Td24) 21 mg TRANSDERMA DAILY [facility] Last Admin: 04/10/23 08:22 Dose: 21 mg Nicotine Polacrilex (Nicotine Polacrilex 2 Mg Gum) 4 mg BUCCAL Q2H PRN PRN Reason: Nicotine Cravings Omeprazole (Omeprazole 20 Mg Capsule.Dr) 20 mg PO DAILY [facility] Last Admin: 04/10/23 08:19 Dose: 20 mg Oxycodone HCl (Oxycodone Hcl Immed Release 5 Mg Tablet) 5 mg PO Q6H PRN PRN Reason: SEVERE PAIN Last Admin: 04/10/23 05:42 Dose: 5 mg Prazosin HCl (Prazosin Hcl 1 Mg Capsule) 2 mg PO BEDTIME [facility]; Protocol Thiamine HCl (Thiamine Hcl 100 Mg Tablet) 100 mg PO DAILY [facility] Home Medications Medication Instructions Recorded Confirmed Last Taken Type melatonin 3 mg tablet 9 mg PO DAILY PRN Insomnia 05/29/22 04/09/23 04/08/23 21: 00 History metoprolol succinate 50 mg 1 tab PO DAILY 05/29/22 04/09/23 04/09/23 09:00 History tablet,extended release 24 hr pantoprazole 40 mg tablet,delayed 1 tab PO DAILY 05/29/22 04/09/23 04/09/23 09:00 History release amlodipine 10 mg tablet 10 mg PO DAILY 04/09/23 04/09/23 04/09/23 09:00 History benztropine 1 mg tablet 1 mg PO BID PRN Extrapyramidal 04/09/23 04/09/23 Unknown History Effects/Symptoms bupropion HCl 75 mg tablet 75 mg PO BID 04/09/23 04/09/23 04/09/23 History 75 mg buspirone 10 mg tablet 10 mg PO TID 04/09/23 04/09/23 04/09/23 15:00 History chlorpromazine 100 mg PO BEDTIME 04/09/23 04/09/23 Unknown History chlorpromazine 200 mg PO TID 04/09/23 04/09/23 Unknown History gabapentin 100 mg capsule 100 mg PO BID 04/09/23 04/09/23 04/09/23 History 100 mg lisinopril 20 mg tablet 20 mg PO DAILY 04/09/23 04/09/23 Unknown History nicotine (polacrilex) 4 mg buccal 4 mg PO QID PRN Nicotine Cravings 04/09/23 04/09/23 Unknown History lozenge nicotine 21 mg/24 hr daily 1 patch topical DAILY 04/09/23 04/09/23 04/09/23 09: 00 History transdermal patch oxycodone-acetaminophen 5 mg-325 1 tab PO Q6H PRN severe pain 04/09/23 04/09/23 Unknown History mg tablet prazosin 2 mg capsule 2 mg PO BEDTIME 04/09/23 04/09/23 04/08/23 History 2 mg Physical Exam Vital Signs and Narrative: Vital Signs: Last Vital Signs Temp 97.7 F 04/10/23 08:00 Pulse 98 04/10/23 08:00 Resp 16 04/10/23 08:00 BP 84/59 L 04/10/23 08:00 Pulse Ox 98 04/10/23 08:00 O2 Del Method Room Air 04/10/23 08:00 BMI result Body Mass Index 25.3 Constitutional: Alert, in no acute distress. Mental Status: Oriented to person, place and time. Eyes: Pupils are equal, round, and reactive to light. Ear, Nose, and Throat: Oropharynx clear, mucous membranes moist. Ears and nose without deformities. Trachea midline. Poor dentition, especially on lower right teeth. Respiratory: Clear to auscultation bilaterally. No wheezing, rales, or rhonchi. Cardiovascular: S1, S2 regular. No murmurs, rubs, or gallops. Gastrointestinal: Abdomen soft, non-tender, non-distended. Normal bowel sounds. Neurologic: Cranial nerves II-XII are grossly intact bilaterally. No focal neurological deficits. Moves all extremities spontaneously. Limited ROM of right ankle and left arm flexion secondary to pain. Skin: No rashes or lesions noted. Musculoskeletal: No cyanosis or clubbing. Extremities: No edema. Walking boot on right foot. Psychiatric: Flat affect. Results Labs 04/10/23 07:51 Labs: Laboratory Results - last 24 hr 04/10/23 04/10/23 04/10/23 07:51 07:51 07:51 Anion Gap 23 H Estim Creat Clear Calc 64.5 Estimated GFR 56 Fasting Glucose 80 Estimat Average Glucose 94 Hemoglobin A1c % 4.9 Calcium 10.6 H D Total Bilirubin 0.5 AST 36 ALT 57 H Alkaline Phosphatase 109 Total Protein 7.8 Albumin 4.3 Triglycerides 460 Cholesterol 318 LDL Cholesterol, Calc TNP HDL Cholesterol 42 Vitamin B12 407 Folate 16.4 TSH 7.43 H Free T4 0.92 Assessment and Plan (1) Routine history and physical examination of adult: Status: Acute Plan Pt is a 57-year-old male with a PMH significant for?HTN, GERD, alcohol use disorder, chronic back and right shoulder pain on chronic opioids, depression, and anxiety who is admitted to psychiatry unit for increasing depression and anxiety and feeling overwhelmed. Patient also endorses auditory and visual hallucinations. Medical consult for admission H&P. Mood disorder Plan as per psychiatry Chest pain Initial presenting complaint at [facility] ED Had negative cardiac workup at [facility]: negative troponins, EKG Likely secondary to anxiety Chronic shoulder and back pain Continue home analgesics Patient should follow up outpatient with PCP for PT and/or MRI Right ankle fracture Patient should follow up outpatient with PCP and/or orthopedics Dental caries/tooth pain Patient should follow up outpatient with dentist HTN Continue lisinopril, amlodipine, metoprolol Peripheral neuropathy Continue gabapentin GERD Continue pantoprazole Subclinical hypothyroidism TSH elevated at 7.43, T4 WNL and 0.92 Repeat TCH in 6 weeks Follow-up outpatient with PCP Hyperlipidemia Patient's triglycerides 460, cholesterol 318 Patient no longer on statin Should follow up outpatient with PCP Lack of PCP A primary portions is that patient needs to establish care with a PCP in order to have his chronic medical conditions properly addressed Thank you for allowing us to participate in the care of this patient. Signing off at this time. Please let us know if there are any acute complaints or questions. Time Spent With Patient Time: Total time managing care of this patient today ____ minutes.
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
--- NOTE | 2023-04-10 20:59 | MHC.RECOVSUP ---
? Reason for consult:ETOH, JONES o? Current location:[phone]? o? Identified substance use concern:? -? Support ? Intervention: o? Community resources provided ? Plan:CSS ? Additional information:RC spoke with this pt and discussed after care, pt informed RC that he'd like to continue treatment at a [facility] facility. Please follow up with this pt tomorrow!
[2023-04-10 21:50] VITALS: BP 127/78; PULSE 110; TEMP 36.3
[2023-04-10] MEDS: Ibuprofen 800 MG TABLET PO (21:57)
[2023-04-10] MEDS: Prazosin HCL 1 MG CAPSULE 2 MG PO (21:59)
[2023-04-10] MEDS: Melatonin 3 MG TABLET 9 MG PO (22:01)
[2023-04-11] MEDS: hydrOXYzine HCL 25 MG TABLET PO ×2 (00:29→08:55)
[2023-04-11] MEDS: chlorproMAZINE HCl 100 MG TABLET 200 MG PO ×4 (00:30→23:04)
[2023-04-11] MEDS: Levothyroxine Sodium 25 MCG TABLET PO (06:02)
[2023-04-11] MEDS: Acetaminophen 325 MG TABLET 650 MG PO ×3 (06:07→18:56)
[2023-04-11] MEDS: oxyCODONE HCl Immed Release 5 MG TABLET PO ×3 (06:09→23:09)
[2023-04-11 08:45] VITALS: BP 123/81; PULSE 92; RESP 18; TEMP 36.3; O2SAT 99
[2023-04-11] MEDS: Nicotine 21 MG PATCH.TD24 TRANSDERMA (08:45)
[2023-04-11] MEDS: Thiamine HCL 100 MG TABLET PO (08:45)
[2023-04-11] MEDS: amLODIPine Besylate 10 MG TABLET PO (08:45)
[2023-04-11] MEDS: Omeprazole 20 MG CAPSULE.DR PO (08:46)
[2023-04-11] MEDS: busPIRone HCl 5 MG TABLET 15 MG PO ×3 (08:46→23:03)
[2023-04-11] MEDS: Multivitamin TABLET 1 TAB PO (08:46)
[2023-04-11] MEDS: Gabapentin 100 MG CAPSULE PO ×2 (08:46→23:05)
[2023-04-11] MEDS: buPROPion HCl XL 300 MG TAB.ER.24H PO (08:46)
[2023-04-11] MEDS: Metoprolol Succinate ER 50 MG TAB.ER.24H PO (08:47)
[2023-04-11] MEDS: Folic Acid 1 MG TABLET PO (08:47)
[2023-04-11] MEDS: Lidocaine 4 % Patch ADH..PATCH 1 PATCH TRANSDERMA (10:12)
--- NOTE | 2023-04-11 11:31 | P.PNPSI_ITS ---
Subjective Subjective Date of Service: 04/11/23 Reason For Visit: Depression Subjective Notes: Conditional Voluntary Healthcare Proxy: No Guardianship: No Medical Problems Affecting Mental Status: No Interim History: Patient was seen and discussed in rounds today. Records and plans were revi ewed. He continues to complain of anxiety in spite of fair dose of Thorazine and also states that he is not sleeping at night and we discussed options and I will increase the Thorazine at night to 300 mg. He continues to be med seeking. Eating adequately. Sleeping discussed. No other changes were made Medication Compliance: Yes Side effects from medications: No Attending Groups: Intermittent Review of Systems Review of Systems Anxiety and sleep Yes all other systems are reviewed and are negative Mental Status Exam Mental Status Exam Patient Appearance: Fatigued Patient Orientation: Person, Place, Time and Situation Level of Consciousness: Alert Patient Behavior: Talkative and Good Eye Contact Mood Description: Depressed Affect Description: Flat Patient Cognition Impaired: No Ability to Follow Directions: Good Speech Pattern: Spontaneous Speech Memory Description: Intact Hallucinations: Auditory and Visual Perceptual Disturbances: Depersonalization and Derealization Thought Process: Rumination Thought Content: positive for Obsessional Thoughts, positive for Circumstantial, positive for Perseveration, positive for Preoccupation and positive for Suicidal Ideation (passive) Depressive Symptoms: Increased Anxiety, Feelings of Worthlessness, Hopelessness, Isolating-Friends/Family, Feelings of Guilt, Unhappiness, Increased Fatigue, Thoughts of /Suicide (passive), Loss of Energy and Difficulty Concentrating Judgement: Fair Diagnostics Vital Signs (24Hr): Vital Signs - 24 hr 04/10/23 21:50 04/11/23 08:45 Temperature 97.3 F 97.3 F Pulse Rate 110 H 92 Respiratory Rate 18 Blood Pressure 127/78 123/81 Pulse Oximetry 99 Oxygen Delivery Method Room Air BMI result Body Mass Index 25.3 Labs 04/10/23 07:51 Labs: Laboratory Results - last 48 hr 04/10/23 04/10/23 04/10/23 07:51 07:51 07:51 Sodium 140 Potassium 3.5 Chloride 100 Carbon Dioxide 21 L Anion Gap 23 H BUN 26 H Creatinine 1.32 Estim Creat Clear Calc 64.5 Estimated GFR 56 Fasting Glucose 80 Estimat Average Glucose 94 Hemoglobin A1c % 4.9 Calcium 10.6 H D Total Bilirubin 0.5 AST 36 ALT 57 H Alkaline Phosphatase 109 Total Protein 7.8 Albumin 4.3 Triglycerides 460 Cholesterol 318 LDL Cholesterol, Calc TNP HDL Cholesterol 42 Vitamin B12 407 Folate 16.4 TSH 7.43 H Free T4 0.92 Medications Medications Current Medications Acetaminophen (Acetaminophen 325 Mg Tablet) 650 mg PO Q6H PRN PRN Reason: Headache/Pain Mild Scale (1-3) Last Admin: 04/11/23 06:07 Dose: 650 mg Al Hydroxide/Mg Hydroxide (Magnesium Hydrox/Alum Hydrox 30 Ml Oral.Susp) 30 ml PO Q6H PRN PRN Reason: Heartburn/Nausea Albuterol Sulfate (Albuterol Sulfate 90 Mcg 8 Gm Inhaler) 2 puff INHALE RQ4H PRN PRN Reason: wheeze Amlodipine Besylate (Amlodipine Besylate 10 Mg Tablet) 10 mg PO DAILY [facility]; Protocol Last Admin: 04/11/23 08:45 Dose: 10 mg Benztropine Mesylate (Benztropine Mesylate 1 Mg Tablet) 1 mg PO BID PRN PRN Reason: Extrapyramidal Effects/Symptoms Bupropion HCl (Bupropion Hcl Xl 300 Mg Tab.Er.24h) 300 mg PO DAILY [facility] Last Admin: 04/11/23 08:46 Dose: 300 mg Buspirone HCl (Buspirone Hcl 5 Mg Tablet) 15 mg PO TID [facility] Last Admin: 04/11/23 08:46 Dose: 15 mg Chlorpromazine HCl (Chlorpromazine Hcl 100 Mg Tablet) 200 mg PO TID [facility] Last Admin: 04/11/23 08:55 Dose: 200 mg Chlorpromazine HCl (Chlorpromazine Hcl 100 Mg Tablet) 200 mg PO BEDTIME PRN PRN Reason: psychosis,sleep Last Admin: 04/11/23 00:30 Dose: 200 mg Folic Acid (Folic Acid 1 Mg Tablet) 1 mg PO DAILY [facility] Last Admin: 04/11/23 08:47 Dose: 1 mg Gabapentin (Gabapentin 100 Mg Capsule) 100 mg PO BID [facility] Last Admin: 04/11/23 08:46 Dose: 100 mg Hydroxyzine HCl (Hydroxyzine Hcl 25 Mg Tablet) 25 mg PO Q6H PRN PRN Reason: Anxiety Last Admin: 04/11/23 08:55 Dose: 25 mg Levothyroxine Sodium (Levothyroxine Sodium 25 Mcg Tablet) 25 mcg PO DAILY@0600 [facility] Last Admin: 04/11/23 06:02 Dose: 25 mcg Lidocaine (Lidocaine 4 % Patch Adh..Patch) 1 patch TRANSDERMA DAILY [facility]; Prot ocol Last Admin: 04/11/23 10:12 Dose: 1 patch Lorazepam (Lorazepam 1 Mg Tablet) 1 mg PO Q2H PRN PRN Reason: CIWA 8-11 Last Admin: 04/09/23 23:09 Dose: 1 mg Lorazepam (Lorazepam 1 Mg Tablet) 2 mg PO Q2H PRN PRN Reason: CIWA 12-15 Last Admin: 04/10/23 03:52 Dose: 2 mg Lorazepam (Lorazepam 1 Mg Tablet) 3 mg PO Q2H PRN PRN Reason: CIWA > 15; and call Magnesium Hydroxide (Milk Of Magnesia 30 Ml Oral.Susp) 30 ml PO DAILY PRN PRN Reason: Constipation Melatonin (Melatonin 3 Mg Tablet) 9 mg PO DAILY PRN PRN Reason: Insomnia Last Admin: 04/10/23 22:01 Dose: 9 mg Metoprolol Succinate (Metoprolol Succinate Er 50 Mg Tab.Er.24h) 50 mg PO DAILY [facility]; Protocol Last Admin: 04/11/23 08:47 Dose: 50 mg Multivitamins/Vitamin C (Multivitamin Tablet) 1 tab PO DAILY [facility] Last Admin: 04/11/23 08:46 Dose: 1 tab Nicotine (Nicotine 21 Mg Patch.Td24) 21 mg TRANSDERMA DAILY [facility] Last Admin: 04/11/23 08:45 Dose: 21 mg Nicotine Polacrilex (Nicotine Polacrilex 2 Mg Gum) 4 mg BUCCAL Q2H PRN PRN Reason: Nicotine Cravings Omeprazole (Omeprazole 20 Mg Capsule.) 20 mg PO DAILY [facility] Last Admin: 04/11/23 08:46 Dose: 20 mg Oxycodone HCl (Oxycodone Hcl Immed Release 5 Mg Tablet) 5 mg PO Q6H PRN PRN Reason: SEVERE PAIN Last Admin: 04/11/23 06:09 Dose: 5 mg Prazosin HCl (Prazosin Hcl 1 Mg Capsule) 2 mg PO BEDTIME [facility]; Protocol Last Admin: 04/10/23 21:59 Dose: 2 mg Thiamine HCl (Thiamine Hcl 100 Mg Tablet) 100 mg PO DAILY [facility] Last Admin: 04/11/23 08:45 Dose: 100 mg Allergies Allergies Allergy/AdvReac Type Severity Reaction Status Date / Time aspirin [ASA] Allergy Unknown FACIAL Unverified 05/31/20 16:36 SWELLING Penicillins [PENICILLINS] Allergy Unknown HIVES Unverified 05/31/20 16:36 tramadol [TRAMADOL] AdvReac Unknown NAUSEA & Unverified 05/30/22 10:16 VOMITING trazodone AdvReac Severe Anaphylaxis Uncoded 04/10/23 11:22 Assessment & Plan Assessment & Plan (1) Routine history and physical examination of adult: Status: Acute Code(s): Z00.00 - Encounter for general adult medical examination without abnormal findings (2) Alcohol withdrawal: Status: Acute Code(s): F10.939 - Alcohol use, unspecified with withdrawal, unspecified (3) Schizoaffective disorder: Status: Acute Code(s): F25.9 - Schizoaffective disorder, unspecified (4) Polysubstance use disorder: Status: Acute Code(s): F19.90 - Other psychoactive substance use, unspecified, uncomplicated Plan Pt is a 57-year-old male with a PMH significant for?HTN, GERD, alcohol use disorder, chronic back and right shoulder pain on chronic opioids, depression, and anxiety who is admitted to [facility] psychiatry unit for increasing depression and anxiety and feeling overwhelmed. Patient also endorses auditory and visual hallucinations. Medical consult for admission H&P. Mood disorder Plan as per psychiatry Chest pain Initial presenting complaint at [facility] ED Had negative cardiac workup at [facility]: negative troponins, EKG Likely secondary to anxiety Chronic shoulder and back pain Continue home analgesics Patient should follow up outpatient with PCP for PT and/or MRI Right ankle fracture Patient should follow up outpatient with PCP and/or orthopedics Dental caries/tooth pain Patient should follow up outpatient with dentist HTN Continue lisinopril, amlodipine, metoprolol Peripheral neuropathy Continue gabapentin GERD Continue pantoprazole Subclinical hypothyroidism TSH elevated at 7.43, T4 WNL and 0.92 Repeat TCH in 6 weeks Follow-up outpatient with PCP Hyperlipidemia Patient's triglycerides 460, cholesterol 318 Patient no longer on statin Should follow up outpatient with PCP Lack of PCP A primary portions is that patient needs to establish care with a PCP in order to have his chronic medical conditions properly addressed Thank you for allowing us to participate in the care of this patient. Signing off at this time. Please let us know if there are any acute complaints or q uestions. 04/11: Continue current regimen and plans and increased q.h.s. Thorazine to 300 mg. He denies any side effects. Issues of orthostasis discussed Reason for continued inpatient stay Substantial Risk for: med/psych decompensation Time Spent With Patient Time: Total time managing care of this patient today ____ minutes.
[2023-04-11] MEDS: hydrOXYzine HCL 50 MG TABLET PO ×2 (14:51→23:03)
[2023-04-11 17:50] VITALS: BP 99/60; PULSE 72; RESP 18; TEMP 36.6; O2SAT 95
[2023-04-11] MEDS: LORazepam 1 MG TABLET PO (18:56)
[2023-04-11] MEDS: Nicotine Polacrilex 2 MG GUM 4 MG BUCCAL (18:56)
[2023-04-11] MEDS: Melatonin 3 MG TABLET 9 MG PO (23:05)
[2023-04-11] MEDS: Prazosin HCL 1 MG CAPSULE 2 MG PO (23:05)
[2023-04-11] MEDS: LORazepam 1 MG TABLET 2 MG PO (23:39)
[2023-04-12] MEDS: chlorproMAZINE HCl 100 MG TABLET 300 MG PO ×2 (03:11→22:34)
[2023-04-12 06:00] VITALS: BP 95/64; PULSE 85; RESP 16; TEMP 36.4; O2SAT 100
[2023-04-12] MEDS: Levothyroxine Sodium 25 MCG TABLET PO (06:16)
[2023-04-12] MEDS: buPROPion HCl XL 300 MG TAB.ER.24H PO (08:22)
[2023-04-12] MEDS: chlorproMAZINE HCl 100 MG TABLET 200 MG PO ×3 (08:22→21:14)
[2023-04-12] MEDS: amLODIPine Besylate 10 MG TABLET PO (08:22)
[2023-04-12] MEDS: busPIRone HCl 5 MG TABLET 15 MG PO ×3 (08:23→21:13)
[2023-04-12] MEDS: Thiamine HCL 100 MG TABLET PO (08:23)
[2023-04-12] MEDS: Folic Acid 1 MG TABLET PO (08:23)
[2023-04-12] MEDS: Omeprazole 20 MG CAPSULE.DR PO (08:23)
[2023-04-12] MEDS: Gabapentin 100 MG CAPSULE PO (08:23)
[2023-04-12] MEDS: Lidocaine 4 % Patch ADH..PATCH 1 PATCH TRANSDERMA (08:23)
[2023-04-12] MEDS: Multivitamin TABLET 1 TAB PO (08:23)
[2023-04-12] MEDS: Metoprolol Succinate ER 50 MG TAB.ER.24H PO (08:23)
[2023-04-12] MEDS: Nicotine 21 MG PATCH.TD24 TRANSDERMA (08:24)
[2023-04-12] MEDS: oxyCODONE HCl Immed Release 5 MG TABLET PO ×3 (08:44→21:13)
[2023-04-12] MEDS: hydrOXYzine HCL 50 MG TABLET PO ×3 (08:44→21:13)
--- NOTE | 2023-04-12 10:15 | HO.PSYCHPN ---
Subjective Subjective Date of Service: 04/12/23 Reason For Visit: Depression Subjective Notes: Conditional Voluntary Healthcare Proxy: No Guardianship: No Medical Problems Affecting Mental Status: No Interim History: Patient was seen and discussed in rounds today. Records and plans were reviewed. He did sleep much better last night with the increase of the bedtime Thorazine. He continues to complain of a lot of anxiety and we increased his gabapentin to 300 mg t.i.d. which is the dose he use to be on. He continues to have some wishes. No active SI. He is more engageable and interactive. No other changes were made Medication Compliance: Yes Side effects from medications: No Attending Groups: Intermittent Review of Systems Review of Systems Yes all other systems are reviewed and are negative Mental Status Exam Mental Status Exam Patient Appearance: Fatigued Patient Orientation: Person, Place, Time and Situation Level of Consciousness: Alert Patient Behavior: Talkative and Good Eye Contact Mood Description: Depressed Affect Description: Flat Patient Cognition Impaired: No Ability to Follow Directions: Good Speech Pattern: Spontaneous Speech Memory Description: Intact Hallucinations: Auditory and Visual Perceptual Disturbances: Depersonalization and Derealization Thought Process: Rumination Thought Content: positive for Obsessional Thoughts, positive for Circumstantial, positive for Perseveration, positive for Preoccupation and positive for Suicidal Ideation (passive) Depressive Symptoms: Increased Anxiety, Feelings of Worthlessness, Hopelessness, Isolating-Friends/Family, Feelings of Guilt, Unhappiness, Increased Fatigue, Thoughts of /Suicide (passive), Loss of Energy and Difficulty Concentrating Judgement: Fair Diagnostics Vital Signs (24Hr): Vital Signs - 24 hr 04/11/23 17:50 04/12/23 06:00 Temperature 97.9 F 97.6 F Pulse Rate 72 85 Respiratory Rate 18 16 Blood Pressure 99/60 95/64 Pulse Oximetry 95 100 Oxygen Delivery Method Room Air Room Air BMI result Body Mass Index 25.3 Labs 04/10/23 07:51 Medications Medications Current Medications Acetaminophen (Acetaminophen 325 Mg Tablet) 650 mg PO Q6H PRN PRN Reason: Headache/Pain Mild Scale (1-3) Last Admin: 04/11/23 18:56 Dose: 650 mg Al Hydroxide/Mg Hydroxide (Magnesium Hydrox/Alum Hydrox 30 Ml Oral.Susp) 30 ml PO Q6H PRN PRN Reason: Heartburn/Nausea Albuterol Sulfate (Albuterol Sulfate 90 Mcg 8 Gm Inhaler) 2 puff INHALE RQ4H PRN PRN Reason: wheeze Amlodipine Besylate (Amlodipine Besylate 10 Mg Tablet) 10 mg PO DAILY [facility]; Protocol Last Admin: 04/12/23 08:22 Dose: 10 mg Benztropine Mesylate (Benztropine Mesylate 1 Mg Tablet) 1 mg PO BID PRN PRN Reason: Extrapyramidal Effects/Symptoms Bupropion HCl (Bupropion Hcl Xl 300 Mg Tab.Er.24h) 300 mg PO DAILY [facility] Last Admin: 04/12/23 08:22 Dose: 300 mg Buspirone HCl (Buspirone Hcl 5 Mg Tablet) 15 mg PO TID [facility] Last Admin: 04/12/23 08:23 Dose: 15 mg Chlorpromazine HCl (Chlorpromazine Hcl 100 Mg Tablet) 200 mg PO TID [facility] Last Admin: 04/12/23 08:22 Dose: 200 mg Chlorpromazine HCl (Chlorpromazine Hcl 100 Mg Tablet) 300 mg PO BEDTIME PRN PRN Reason: psychosis,sleep Last Admin: 04/12/23 03:11 Dose: 300 mg Folic Acid (Folic Acid 1 Mg Tablet) 1 mg PO DAILY [facility] Last Admin: 04/12/23 08:23 Dose: 1 mg Gabapentin (Gabapentin 100 Mg Capsule) 100 mg PO BID [facility] Last Admin: 04/12/23 08:23 Dose: 100 mg Hydroxyzine HCl (Hydroxyzine Hcl 50 Mg Tablet) 50 mg PO Q6H PRN PRN Reason: Anxiety Last Admin: 04/12/23 08:44 Dose: 50 mg Levothyroxine Sodium (Levothyroxine Sodium 25 Mcg Tablet) 25 mcg PO DAILY@0600 [facility] Last Admin: 04/12/23 06:16 Dose: 25 mcg Lidocaine (Lidocaine 4 % Patch Adh..Patch) 1 patch TRANSDERMA DAILY [facility]; Protocol Last Admin: 04/12/23 08:23 Dose: 1 patch Lorazepam (Lorazepam 1 Mg Tablet) 1 mg PO Q2H PRN PRN Reason: CIWA 8-11 Last Admin: 04/11/23 18:56 Dose: 1 mg Lorazepam (Lorazepam 1 Mg Tablet) 2 mg PO Q2H PRN PRN Reason: CIWA 12-15 Last Admin: 04/11/23 23:39 Dose: 2 mg Lorazepam (Lorazepam 1 Mg Tablet) 3 mg PO Q2H PRN PRN Reason: CIWA > 15; and call Magnesium Hydroxide (Milk Of Magnesia 30 Ml Oral.Susp) 30 ml PO DAILY PRN PRN Reason: Constipation Melatonin (Melatonin 3 Mg Tablet) 9 mg PO DAILY PRN PRN Reason: Insomnia Last Admin: 04/11/23 23:05 Dose: 9 mg Metoprolol Succinate (Metoprolol Succinate Er 50 Mg Tab.Er.24h) 50 mg PO DAILY [facility]; Protocol Last Admin: 04/12/23 08:23 Dose: 50 mg Multivitamins/Vitamin C (Multivitamin Tablet) 1 tab PO DAILY [facility] Last Admin: 04/12/23 08:23 Dose: 1 tab Nicotine (Nicotine 21 Mg Patch.Td24) 21 mg TRANSDERMA DAILY [facility] Last Admin: 04/12/23 08:24 Dose: 21 mg Nicotine Polacrilex (Nicotine Polacrilex 2 Mg Gum) 4 mg BUCCAL Q2H PRN PRN Reason: Nicotine Cravings Last Admin: 04/11/23 18:56 Dose: 4 mg Omeprazole (Omeprazole 20 Mg Capsule.Dr) 20 mg PO DAILY [facility] Last Admin: 04/12/23 08:23 Dose: 20 mg Oxycodone HCl (Oxycodone Hcl Immed Release 5 Mg Tablet) 5 mg PO Q6H PRN PRN Reason: SEVERE PAIN Last Admin: 04/12/23 08:44 Dose: 5 mg Prazosin HCl (Prazosin Hcl 1 Mg Capsule) 2 mg PO BEDTIME [facility]; Protocol Last Admin: 04/11/23 23:05 Dose: 2 mg Thiamine HCl (Thiamine Hcl 100 Mg Tablet) 100 mg PO DAILY [facility] Last Admin: 04/12/23 08:23 Dose: 100 mg Allergies Allergies Allergy/AdvReac Type Severity Reaction Status Date / Time aspirin [ASA] Allergy Unknown FACIAL Unverified 05/31/20 16:36 SWELLING Penicillins [PENICILLINS] Allergy Unknown HIVES Unverified 05/31/20 16:36 tramadol [TRAMADOL] AdvReac Unknown NAUSEA & Unverified 05/30/22 10:16 VOMITING trazodone AdvReac Severe Anaphylaxis Uncoded 04/10/23 11:22 Assessment & Plan Assessment & Plan (1) Routine history and physical examination of adult: Status: Acute Code(s): Z00.00 - Encounter for general adult medical examination without abnormal findings (2) Alcohol withdrawal: Status: Acute Code(s): F10.939 - Alcohol use, unspecified with withdrawal, unspecified (3) Schizoaffective disorder: Status: Acute Code(s): F25.9 - Schizoaffective disorder, unspecified (4) Polysubstance use disorder: Status: Acute Code(s): F19.90 - Other psychoactive substance use, unspecified, uncomplicated Plan Pt is a 57-year-old male with a PMH significant for?HTN, GERD, alcohol use disorder, chronic back and right shoulder pain on chronic opioids, depression, and anxiety who is admitted to [facility] psychiatry unit for increasing depression and anxiety and feeling overwhelmed. Patient also endorses auditory and visual hallucinations. Medical consult for admission H&P. Mood disorder Plan as per psychiatry Chest pain Initial presenting complaint at [facility] ED Had negative cardiac workup at [facility]: negative troponins, EKG Likely secondary to anxiety Chronic shoulder and back pain Continue home analgesics Patient should follow up outpatient with PCP for PT and/or MRI Right ankle fracture Patient should follow up outpatient with PCP and/or orthopedics Dental caries/tooth pain Patient should follow up outpatient with dentist HTN Continue lisinopril, amlodipine, metoprolol Peripheral neuropathy Continue gabapentin GERD Continue pantoprazole Subclinical hypothyroidism TSH elevated at 7.43, T4 WNL and 0.92 Repeat TCH in 6 weeks Follow-up outpatient with PCP Hyperlipidemia Patient's triglycerides 460, cholesterol 318 Patient no longer on statin Should follow up outpatient with PCP Lack of PCP A primary portions is that patient needs to establish care with a PCP in order to have his chronic medical conditions properly addressed Thank you for allowing us to participate in the care of this patient. Signing off at this time. Please let us know if there are any acute complaints or questions. 04/11: Continue current regimen and plans and increased q.h.s. Thorazine to 300 mg. He denies any side effects. Issues of orthostasis discussed 04/12: Continue current regimen and plans. Increase gabapentin to 300 mg t.i.d.. Patient educated on: medication risk/benefits and therapeutic strategies Reason for continued inpatient stay Substantial Risk for: med/psych decompensation Time Spent With Patient Time: Total time managing care of this patient today ____ minutes.
[2023-04-12] MEDS: Nicotine Polacrilex 2 MG GUM 4 MG BUCCAL (11:15)
[2023-04-12] MEDS: Acetaminophen 325 MG TABLET 650 MG PO ×2 (14:50→21:14)
[2023-04-12] MEDS: Gabapentin 300 MG CAPSULE PO (16:40)
[2023-04-12 18:00] VITALS: BP 91/56; PULSE 88; TEMP 36.2; O2SAT 97
[2023-04-12] MEDS: LORazepam 1 MG TABLET PO ×2 (18:20→22:35)
[2023-04-12] MEDS: Melatonin 3 MG TABLET 9 MG PO (21:14)
[2023-04-13] MEDS: LORazepam 1 MG TABLET PO ×2 (00:55→03:16)
[2023-04-13] MEDS: hydrOXYzine HCL 50 MG TABLET PO (03:15)
[2023-04-13] MEDS: oxyCODONE HCl Immed Release 5 MG TABLET PO ×4 (03:15→23:09)
[2023-04-13] MEDS: Levothyroxine Sodium 25 MCG TABLET PO (06:17)
[2023-04-13] MEDS: Lidocaine 4 % Patch ADH..PATCH 1 PATCH TRANSDERMA (09:16)
[2023-04-13] MEDS: Folic Acid 1 MG TABLET PO (09:17)
[2023-04-13] MEDS: Gabapentin 300 MG CAPSULE PO ×2 (09:17→22:08)
[2023-04-13] MEDS: Thiamine HCL 100 MG TABLET PO (09:17)
[2023-04-13] MEDS: chlorproMAZINE HCl 100 MG TABLET 200 MG PO ×2 (09:17→15:14)
[2023-04-13] MEDS: buPROPion HCl XL 300 MG TAB.ER.24H PO (09:17)
[2023-04-13] MEDS: amLODIPine Besylate 10 MG TABLET PO (09:18)
[2023-04-13] MEDS: busPIRone HCl 5 MG TABLET 15 MG PO ×3 (09:18→22:07)
[2023-04-13] MEDS: Metoprolol Succinate ER 50 MG TAB.ER.24H PO (09:18)
[2023-04-13] MEDS: Omeprazole 20 MG CAPSULE.DR PO (09:18)
[2023-04-13] MEDS: Multivitamin TABLET 1 TAB PO (09:18)
[2023-04-13] MEDS: Nicotine 21 MG PATCH.TD24 TRANSDERMA (09:25)
[2023-04-13 09:26] VITALS: BP 114/68; PULSE 87; RESP 18; TEMP 36.3; O2SAT 97
--- NOTE | 2023-04-13 09:51 | PC.NURSE ---
late note:oxycodone 5mg po given 04/10/23 at 12:20. did not scan.
[2023-04-13] MEDS: Acetaminophen 325 MG TABLET 650 MG PO ×3 (10:02→23:08)
--- NOTE | 2023-04-13 10:29 | HO.PSYCHPN ---
Subjective Subjective Date of Service: 04/13/23 Reason For Visit: Depression Subjective Notes: Conditional Voluntary Healthcare Proxy: No Guardianship: No Medical Problems Affecting Mental Status: No Interim History: Irritable, demanding Xanax (last given 1 mg tid 05/05/22). It made everything OK. Discussed concern for addiction, withdrawal, decrease program acceptance of Xanax- I don't believe that . Reports balance issues, vertigo, voice issues. Discussed making changes BP is low as well, appears unsteady at times, slowed, ?pre delirium. Agrees to have applications filed with [employer] programs. Reports poor sleep, anxiety, yet presents as oversedated. Medication Compliance: Yes Side effects from medications: Yes Attending Groups: Intermittent Review of Systems Acute medical concerns: No Medical Review of Systems: unchanged Mental Status Exam Mental Status Exam Patient Appearance: Fatigued Patient Orientation: Person, Place, Time and Situation Level of Consciousness: Sedated Patient Behavior: Talkative, Sedated, Distractible, Confused and Good Eye Contact Mood Description: Withdrawn, Depressed, Hostile, Anxious and Apprehensive Affect Description: Flat Patient Cognition Impaired: Yes Speech Pattern: Perseverating, Spontaneous Speech, Soft-Spoken and Delayed Memory Description: Episodic Impaired Hallucinations: None Perceptual Disturbances: Depersonalization and Derealization Thought Process: Rumination, Slowed Thinking and Confusion Thought Content: positive for [place] and positive for Circumstantial Depressive Symptoms: Increased Irritability and Low Self Esteem Abnormal Motor Activity Signs and Symptoms: Agitation Judgement: Fair Diagnostics Vital Signs (24Hr): Vital Signs - 24 hr 04/12/23 18:00 04/13/23 09:26 Temperature 97.1 F 97.4 F Pulse Rate 88 87 Respiratory Rate 18 Blood Pressure 91/56 L 114/68 Pulse Oximetry 97 97 Oxygen Delivery Method Room Air BMI result Body Mass Index 25.3 Labs 04/10/23 07:51 Medications Medications Current Medications Acetaminophen (Acetaminophen 325 Mg Tablet) 650 mg PO Q6H PRN PRN Reason: Headache/Pain Mild Scale (1-3) Last Admin: 04/13/23 10:02 Dose: 650 mg Al Hydroxide/Mg Hydroxide (Magnesium Hydrox/Alum Hydrox 30 Ml Oral.Susp) 30 ml PO Q6H PRN PRN Reason: Heartburn/Nausea Albuterol Sulfate (Albuterol Sulfate 90 Mcg 8 Gm Inhaler) 2 puff INHALE RQ4H PRN PRN Reason: wheeze Amlodipine Besylate (Amlodipine Besylate 10 Mg Tablet) 10 mg PO DAILY [facility]; Protocol Last Admin: 04/13/23 09:18 Dose: 10 mg Benztropine Mesylate (Benztropine Mesylate 1 Mg Tablet) 1 mg PO BID PRN PRN Reason: Extrapyramidal Effects/Symptoms Bupropion HCl (Bupropion Hcl Xl 300 Mg Tab.Er.24h) 300 mg PO DAILY [facility] Last Admin: 04/13/23 09:17 Dose: 300 mg Buspirone HCl (Buspirone Hcl 5 Mg Tablet) 15 mg PO TID [facility] Last Admin: 04/13/23 09:18 Dose: 15 mg Chlorpromazine HCl (Chlorpromazine Hcl 100 Mg Tablet) 200 mg PO TID [facility] Last Admin: 04/13/23 09:17 Dose: 200 mg Chlorpromazine HCl (Chlorpromazine Hcl 100 Mg Tablet) 300 mg PO BEDTIME PRN PRN Reason: psychosis,sleep Last Admin: 04/12/23 22:34 Dose: 300 mg Folic Acid (Folic Acid 1 Mg Tablet) 1 mg PO DAILY [facility] Last Admin: 04/13/23 09:17 Dose: 1 mg Gabapentin (Gabapentin 300 Mg Capsule) 300 mg PO BID [facility] Last Admin: 04/13/23 09:17 Dose: 300 mg Hydroxyzine HCl (Hydroxyzine Hcl 50 Mg Tablet) 50 mg PO Q6H PRN PRN Reason: Anxiety Last Admin: 04/13/23 03:15 Dose: 50 mg Levothyroxine Sodium (Levothyroxine Sodium 25 Mcg Tablet) 25 mcg PO DAILY@0600 [facility] Last Admin: 04/13/23 06:17 Dose: 25 mcg Lidocaine (Lidocaine 4 % Patch Adh..Patch) 1 patch TRANSDERMA DAILY [facility]; Protocol Last Admin: 04/13/23 09:16 Dose: 1 patch Lorazepam (Lorazepam 1 Mg Tablet) 1 mg PO Q2H PRN PRN Reason: CIWA 8-11 Last Admin: 04/13/23 03:16 Dose: 1 mg Lorazepam (Lorazepam 1 Mg Tablet) 2 mg PO Q2H PRN PRN Reason: CIWA 12-15 Last Admin: 04/11/23 23:39 Dose: 2 mg Lorazepam (Lorazepam 1 Mg Tablet) 3 mg PO Q2H PRN PRN Reason: CIWA > 15; and call Magnesium Hydroxide (Milk Of Magnesia 30 Ml Oral.Susp) 30 ml PO DAILY PRN PRN Reason: Constipation Melatonin (Melatonin 3 Mg Tablet) 9 mg PO DAILY PRN PRN Reason: Insomnia Last Admin: 04/12/23 21:14 Dose: 9 mg Metoprolol Succinate (Metoprolol Succinate Er 50 Mg Tab.Er.24h) 50 mg PO DAILY [facility]; Protocol Last Admin: 04/13/23 09:18 Dose: 50 mg Multivitamins/Vitamin C (Multivitamin Tablet) 1 tab PO DAILY [facility] Last Admin: 04/13/23 09:18 Dose: 1 tab Nicotine (Nicotine 21 Mg Patch.Td24) 21 mg TRANSDERMA DAILY [facility] Last Admin: 04/13/23 09:25 Dose: 21 mg Nicotine Polacrilex (Nicotine Polacrilex 2 Mg Gum) 4 mg BUCCAL Q2H PRN PRN Reason: Nicotine Cravings Last Admin: 04/12/23 11:15 Dose: 4 mg Omeprazole (Omeprazole 20 Mg Capsule.Dr) 20 mg PO DAILY [facility] Last Admin: 04/13/23 09:18 Dose: 20 mg Oxycodone HCl (Oxycodone Hcl Immed Release 5 Mg Tablet) 5 mg PO Q6H PRN PRN Reason: SEVERE PAIN Last Admin: 04/13/23 10:01 Dose: 5 mg Prazosin HCl (Prazosin Hcl 1 Mg Capsule) 2 mg PO BEDTIME [facility]; Protocol Last Admin: 04/12/23 21:37 Dose: Not Given Thiamine HCl (Thiamine Hcl 100 Mg Tablet) 100 mg PO DAILY [facility] Last Admin: 04/13/23 09:17 Dose: 100 mg Allergies Allergies Allergy/AdvReac Type Severity Reaction Status Date / Time aspirin [ASA] Allergy Unknown FACIAL Unverified 05/31/20 16:36 SWELLING Penicillins [PENICILLINS] Allergy Unknown HIVES Unverified 05/31/20 16:36 tramadol [TRAMADOL] AdvReac Unknown NAUSEA & Unverified 05/30/22 10:16 VOMITING trazodone AdvReac Severe Anaphylaxis Uncoded 04/10/23 11:22 Assessment & Plan Assessment & Plan (1) Routine history and physical examination of adult: Status: Acute Code(s): Z00.00 - Encounter for general adult medical examination without abnormal findings (2) Alcohol withdrawal: Status: Acute Code(s): F10.939 - Alcohol use, unspecified with withdrawal, unspecified (3) Schizoaffective disorder: Status: Acute Code(s): F25.9 - Schizoaffective disorder, unspecified (4) Polysubstance use disorder: Status: Acute Code(s): F19.90 - Other psychoactive substance use, unspecified, uncomplicated Plan Pt is a 57-year-old male with a PMH significant for?HTN, GERD, alcohol use disorder, chronic back and right shoulder pain on chronic opioids, depression, and anxiety who is admitted to psychiatry unit for increasing depression and anxiety and feeling overwhelmed. Patient also endorses auditory and visual hallucinations. Medical consult for admission H&P. Mood disorder Plan as per psychiatry Chest pain Initial presenting complaint at [facility] ED Had negative cardiac workup at [facility]: negative troponins, EKG Likely secondary to anxiety Chronic shoulder and back pain Continue home analgesics Patient should follow up outpatient with PCP for PT and/or MRI Right ankle fracture Patient should follow up outpatient with PCP and/or orthopedics Dental caries/tooth pain Patient should follow up outpatient with dentist HTN Continue lisinopril, amlodipine, metoprolol Peripheral neuropathy Continue gabapentin GERD Continue pantoprazole Subclinical hypothyroidism TSH elevated at 7.43, T4 WNL and 0.92 Repeat TCH in 6 weeks Follow-up outpatient with PCP Hyperlipidemia Patient's triglycerides 460, cholesterol 318 Patient no longer on statin Should follow up outpatient with PCP Lack of PCP A primary portions is that patient needs to establish care with a PCP in order to have his chronic medical conditions properly addressed Thank you for allowing us to participate in the care of this patient. Signing off at this time. Please let us know if there are any acute complaints or questions. 04/11: Continue current regimen and plans and increased q.h.s. Thorazine to 300 mg. He denies any side effects. Issues of orthostasis discussed 04/12: Continue current regimen and plans. Increase gabapentin to 300 mg t.i.d.. 04/13 Issues with vertigo, dizziness, balance and voice is weak, ?Overmedicated. Pt asking for Xanax. Irritable, some confusion. Lowered BP Gabapentin 300 mg tid Decrease Chlorpromazine to 100 mg tid and 300 mg HS Decrease Wellbutrin XL to 150 mg a.m. Decrease Amlodipine to 5 mg daily Decrease Metoprolol to 25 mg daily Patient educated on: medication risk/benefits Informed Consent: further education needed Reason for continued inpatient stay Substantial Risk for: rapid decompensation Time Spent With Patient Time: Total time managing care of this patient today ____ minutes.
--- NOTE | 2023-04-13 11:15 | PC.NURSE ---
pt recieved oxycodone 5 mg po on 04/10 at 1220. med did not scan. pt had some effect from med. pain was a 10 down to 8 on pain scale.
[2023-04-13 18:00] VITALS: BP 100/59; PULSE 86; TEMP 36.3
[2023-04-13] MEDS: Prazosin HCL 1 MG CAPSULE 2 MG PO (22:05)
[2023-04-13] MEDS: chlorproMAZINE HCl 100 MG TABLET PO (22:08)
[2023-04-14] MEDS: chlorproMAZINE HCl 100 MG TABLET 300 MG PO ×2 (01:01→23:35)
[2023-04-14] MEDS: hydrOXYzine HCL 50 MG TABLET PO ×4 (01:03→23:42)
[2023-04-14] MEDS: Melatonin 3 MG TABLET 9 MG PO ×2 (03:14→23:34)
[2023-04-14] MEDS: oxyCODONE HCl Immed Release 5 MG TABLET PO ×4 (05:15→23:42)
[2023-04-14] MEDS: Acetaminophen 325 MG TABLET 650 MG PO ×4 (05:17→23:41)
[2023-04-14 08:00] VITALS: BP 109/71; PULSE 78; RESP 18; TEMP 36.2; O2SAT 96
[2023-04-14] MEDS: Omeprazole 20 MG CAPSULE.DR PO (09:17)
[2023-04-14] MEDS: Multivitamin TABLET 1 TAB PO (09:17)
[2023-04-14] MEDS: Gabapentin 300 MG CAPSULE PO ×3 (09:19→23:31)
[2023-04-14] MEDS: Thiamine HCL 100 MG TABLET PO (09:19)
[2023-04-14] MEDS: Folic Acid 1 MG TABLET PO (09:19)
[2023-04-14] MEDS: chlorproMAZINE HCl 100 MG TABLET PO ×4 (09:19→23:31)
[2023-04-14] MEDS: buPROPion HCl XL 150 MG TAB.ER.24H PO (09:20)
[2023-04-14] MEDS: Metoprolol Succinate ER 25 MG TAB.ER.24H PO (09:20)
[2023-04-14] MEDS: busPIRone HCl 5 MG TABLET 15 MG PO ×3 (09:20→23:33)
[2023-04-14] MEDS: amLODIPine Besylate 5 MG TABLET PO (09:20)
[2023-04-14] MEDS: Nicotine 21 MG PATCH.TD24 TRANSDERMA (09:21)
[2023-04-14] MEDS: Lidocaine 4 % Patch ADH..PATCH 1 PATCH TRANSDERMA (09:21)
[2023-04-14] MEDS: Cyanocobalamin (Vitamin B-12) 500 MCG TABLET PO (11:08)
[2023-04-14] MEDS: Nicotine Polacrilex 2 MG GUM 4 MG BUCCAL ×2 (11:26→19:44)
--- NOTE | 2023-04-14 13:40 | HO.PSYCHPN ---
Subjective Subjective Date of Service: 04/14/23 Reason For Visit: Depression Subjective Notes: Conditional Voluntary Interim History: Pt less irritable today but still asking for scheduled benzodiazepine. Pt states alcohol works, it takes me pain away and my anxiety, I need something to replace it. Pt educated on risks of abuse and misuse of benzo especially as he is struggling with alcohol use dependence. Pt reports feeling depressed. He states medication not working which pt was reminded he just had one dose. He reports hearing music at bedtime- sometimes this happens with some degree of hearing loss or other neurological disorder. He reports he has not had head CT- will order one just to rule out mass effect. Review of Systems Review of Systems Anxiety and sleep Yes all other systems are reviewed and are negative Constitutional: Reports lethargy and Reports malaise Eyes: Reports no additional eye complaints Reports system reviewed and no additional complaints, except as documented Cardiovascular: Reports no additional cardiovascular complaints Respiratory: Reports no additional respiratory complaints Gastrointestinal: Reports no additional gastrointestinal complaints Genitourinary: Reports no additional male genitourinary complaints Musculoskeletal: Reports back pain, Reports myalgias, Reports arthralgias, Reports muscle weakness and Reports other (chronic pain) Skin/Breast: Reports system reviewed and no additional complaints, except as docu Reports system reviewed and no additional complaints, except as documented and Reports behavioral changes Psychiatric: Reports abnormal sleep pattern, Reports anxiety, Reports behavioral changes, Reports change in appetite, Reports depression, Reports difficulty concentrating, Reports auditory hallucinations, Reports hopelessness, Reports anhedonia, Reports mood swings, Reports visual hallucinations and Reports suicidal ideation Endocrine: Reports no additional endocrine complaints Hematologic/Lymphatic: Reports no additional hematologic/lymphatic complaints Allergic/Immunologic: Reports no additional allergic/immunologic complaints Mental Status Exam Mental Status Exam Patient Appearance: Fatigued Patient Orientation: Person, Place, Time and Situation Level of Consciousness: Sedated Patient Behavior: Talkative, Sedated, Distractible, Confused and Good Eye Contact Mood Description: Withdrawn, Depressed, Hostile, Anxious and Apprehensive Affect Description: Flat Patient Cognition Impaired: Yes Ability to Follow Directions: Good Speech Pattern: Perseverating, Spontaneous Speech, Soft-Spoken and Delayed Memory Description: Episodic Impaired Diagnostics Vital Signs (24Hr): Vital Signs - 24 hr 04/13/23 18:00 04/14/23 08:00 Temperature 97.4 F 97.2 F Pulse Rate 86 78 Respiratory Rate 18 Blood Pressure 100/59 L 109/71 Pulse Oximetry 96 Oxygen Delivery Method Room Air BMI result Body Mass Index 25.3 Labs 04/10/23 07:51 Medications Medications Current Medications Acetaminophen (Acetaminophen 325 Mg Tablet) 650 mg PO Q6H PRN PRN Reason: Headache/Pain Mild Scale (1-3) Last Admin: 04/14/23 11:07 Dose: 650 mg Al Hydroxide/Mg Hydroxide (Magnesium Hydrox/Alum Hydrox 30 Ml Oral.Susp) 30 ml PO Q6H PRN PRN Reason: Heartburn/Nausea Albuterol Sulfate (Albuterol Sulfate 90 Mcg 8 Gm Inhaler) 2 puff INHALE Q4H PRN PRN Reason: wheeze Amlodipine Besylate (Amlodipine Besylate 5 Mg Tablet) 5 mg PO DAILY [facility]; Protocol Last Admin: 04/14/23 09:20 Dose: 5 mg Benztropine Mesylate (Benztropine Mesylate 1 Mg Tablet) 1 mg PO BID PRN PRN Reason: Extrapyramidal Effects/Symptoms Bupropion HCl (Bupropion Hcl Xl 150 Mg Tab.Er.24h) 150 mg PO DAILY [facility] Last Admin: 04/14/23 09:20 Dose: 150 mg Buspirone HCl (Buspirone Hcl 5 Mg Tablet) 15 mg PO TID [facility] Last Admin: 04/14/23 09:20 Dose: 15 mg Chlorpromazine HCl (Chlorpromazine Hcl 100 Mg Tablet) 100 mg PO TID [facility] Last Admin: 04/14/23 09:19 Dose: 100 mg Chlorpromazine HCl (Chlorpromazine Hcl 100 Mg Tablet) 300 mg PO BEDTIME PRN PRN Reason: psychosis,sleep Last Admin: 04/14/23 01:01 Dose: 300 mg Cyanocobalamin (Cyanocobalamin (Vitamin B-12) 500 Mcg Tablet) 500 mcg PO DAILY [facility] Last Admin: 04/14/23 11:08 Dose: 500 mcg Folic Acid (Folic Acid 1 Mg Tablet) 1 mg PO DAILY [facility] Last Admin: 04/14/23 09:19 Dose: 1 mg Gabapentin (Gabapentin 300 Mg Capsule) 300 mg PO TID [facility] Last Admin: 04/14/23 09:19 Dose: 300 mg Hydroxyzine HCl (Hydroxyzine Hcl 50 Mg Tablet) 50 mg PO Q6H PRN PRN Reason: Anxiety Last Admin: 04/14/23 11:25 Dose: 50 mg Levothyroxine Sodium (Levothyroxine Sodium 25 Mcg Tablet) 25 mcg PO DAILY@0700 [facility] Lidocaine (Lidocaine 4 % Patch Adh..Patch) 1 patch TRANSDERMA DAILY [facility]; Protocol Last Admin: 04/14/23 09:21 Dose: 1 patch Lorazepam (Lorazepam 1 Mg Tablet) 2 mg PO Q2H PRN PRN Reason: CIWA 12-15 Last Admin: 04/11/23 23:39 Dose: 2 mg Lorazepam (Lorazepam 1 Mg Tablet) 3 mg PO Q2H PRN PRN Reason: CIWA > 15; and call Magnesium Hydroxide (Milk Of Magnesia 30 Ml Oral.Susp) 30 ml PO DAILY PRN PRN Reason: Constipation Melatonin (Melatonin 3 Mg Tablet) 9 mg PO DAILY PRN PRN Reason: Insomnia Last Admin: 04/14/23 03:14 Dose: 9 mg Metoprolol Succinate (Metoprolol Succinate Er 25 Mg Tab.Er.24h) 25 mg PO DAILY [facility]; Protocol Last Admin: 04/14/23 09:20 Dose: 25 mg Multivitamins/Vitamin C (Multivitamin Tablet) 1 tab PO DAILY [facility] Last Admin: 04/14/23 09:17 Dose: 1 tab Nicotine (Nicotine 21 Mg Patch.Td24) 21 mg TRANSDERMA DAILY [facility] Last Admin: 04/14/23 09:21 Dose: 21 mg Nicotine Polacrilex (Nicotine Polacrilex 2 Mg Gum) 4 mg BUCCAL Q2H PRN PRN Reason: Nicotine Cravings Last Admin: 04/14/23 11:26 Dose: 4 mg Omeprazole (Omeprazole 20 Mg Capsule.) 20 mg PO DAILY [facility] Last Admin: 04/14/23 09:17 Dose: 20 mg Oxycodone HCl (Oxycodone Hcl Immed Release 5 Mg Tablet) 5 mg PO Q6H PRN PRN Reason: SEVERE PAIN Last Admin: 04/14/23 11:08 Dose: 5 mg Prazosin HCl (Prazosin Hcl 1 Mg Capsule) 2 mg PO BEDTIME [facility]; Protocol Last Admin: 04/13/23 22:05 Dose: 2 mg Thiamine HCl (Thiamine Hcl 100 Mg Tablet) 100 mg PO DAILY [facility] Last Admin: 04/14/23 09:19 Dose: 100 mg Allergies Allergies Allergy/AdvReac Type Severity Reaction Status Date / Time aspirin [ASA] Allergy Unknown FACIAL Verified 04/14/23 09:16 SWELLING Penicillins [PENICILLINS] Allergy Unknown HIVES Verified 04/14/23 09:16 trazodone Allergy Anaphylaxis Verified 04/14/23 09:16 tramadol [TRAMADOL] AdvReac Unknown NAUSEA & Verified 04/14/23 09:16 VOMITING Assessment & Plan Assessment & Plan (1) Alcohol withdrawal: Status: Acute Code(s): F10.939 - Alcohol use, unspecified with withdrawal, unspecified (2) Polysubstance use disorder: Status: Acute Code(s): F19.90 - Other psychoactive substance use, unspecified, uncomplicated Plan Pt is a 57-year-old male with a PMH significant for?HTN, GERD, alcohol use disorder, chronic back and right shoulder pain on chronic opioids, depression, and anxiety who is admitted to [facility] psychiatry unit for increasing depression and anxiety and feeling overwhelmed. Patient also endorses auditory and visual hallucinations. Medical consult for admission H&P. Mood disorder Plan as per psychiatry Chest pain Initial presenting complaint at [facility] ED Had negative cardiac workup at [facility]: negative troponins, EKG Likely secondary to anxiety Chronic shoulder and back pain Continue home analgesics Patient should follow up outpatient with PCP for PT and/or MRI Right ankle fracture Patient should follow up outpatient with PCP and/or orthopedics Dental caries/tooth pain Patient should follow up outpatient with dentist HTN Continue lisinopril, amlodipine, metoprolol Peripheral neuropathy Continue gabapentin GERD Continue pantoprazole Subclinical hypothyroidism TSH elevated at 7.43, T4 WNL and 0.92 Repeat TCH in 6 weeks Follow-up outpatient with PCP Hyperlipidemia Patient's triglycerides 460, cholesterol 318 Patient no longer on statin Should follow up outpatient with PCP Lack of PCP A primary portions is that patient needs to establish care with a PCP in order to have his chronic medical conditions properly addressed Thank you for allowing us to participate in the care of this patient. Signing off at this time. Please let us know if there are any acute complaints or questions. 04/11: Continue current regimen and plans and increased q.h.s. Thorazine to 300 mg. He denies any side effects. Issues of orthostasis discussed 04/12: Continue current regimen and plans. Increase gabapentin to 300 mg t.i.d.. 04/13 Issues with vertigo, dizziness, balance and voice is weak, ?Overmedicated. Pt asking for Xanax. Irritable, some confusion. Lowered BP Gabapentin 300 mg tid Decrease Chlorpromazine to 100 mg tid and 300 mg HS Decrease Wellbutrin XL to 150 mg a.m. Decrease Amlodipine to 5 mg daily Decrease Metoprolol to 25 mg daily 04/14 continue tx. held amlodipine due to low BP. Reason for continued inpatient stay Substantial Risk for: inability to function Time Spent With Patient Time: Total time managing care of this patient today ____ minutes.
[2023-04-14 16:49] VITALS: BP 107/65; PULSE 72; RESP 18; TEMP 36.2; O2SAT 98
[2023-04-14] MEDS: LORazepam 1 MG TABLET PO (17:59)
[2023-04-14] MEDS: Prazosin HCL 1 MG CAPSULE 2 MG PO (23:34)
[2023-04-15] MEDS: Levothyroxine Sodium 25 MCG TABLET PO (06:23)
[2023-04-15] MEDS: Acetaminophen 325 MG TABLET 650 MG PO ×3 (06:41→19:55)
[2023-04-15] MEDS: oxyCODONE HCl Immed Release 5 MG TABLET PO ×3 (06:42→19:55)
[2023-04-15] MEDS: hydrOXYzine HCL 50 MG TABLET PO ×2 (06:43→13:09)
[2023-04-15] MEDS: Folic Acid 1 MG TABLET PO (08:19)
[2023-04-15] MEDS: Omeprazole 20 MG CAPSULE.DR PO (08:20)
[2023-04-15] MEDS: Thiamine HCL 100 MG TABLET PO (08:20)
[2023-04-15] MEDS: buPROPion HCl XL 150 MG TAB.ER.24H PO (08:20)
[2023-04-15] MEDS: Nicotine 21 MG PATCH.TD24 TRANSDERMA (08:20)
[2023-04-15] MEDS: Metoprolol Succinate ER 25 MG TAB.ER.24H PO (08:20)
[2023-04-15] MEDS: chlorproMAZINE HCl 100 MG TABLET PO ×3 (08:20→21:07)
[2023-04-15] MEDS: Multivitamin TABLET 1 TAB PO (08:20)
[2023-04-15] MEDS: Cyanocobalamin (Vitamin B-12) 500 MCG TABLET PO (08:20)
[2023-04-15] MEDS: Lidocaine 4 % Patch ADH..PATCH 1 PATCH TRANSDERMA (08:20)
[2023-04-15] MEDS: busPIRone HCl 5 MG TABLET 15 MG PO ×3 (08:20→21:08)
[2023-04-15] MEDS: Gabapentin 300 MG CAPSULE PO ×3 (08:20→21:14)
[2023-04-15 08:31] VITALS: BP 133/70; PULSE 89; RESP 16; TEMP 36.3; O2SAT 96
[2023-04-15] MEDS: Nicotine Polacrilex 2 MG GUM 4 MG BUCCAL ×2 (09:23→16:30)
--- NOTE | 2023-04-15 15:53 | HO.PSYCHPN ---
Subjective Subjective Date of Service: 04/15/23 Reason For Visit: Depression Subjective Notes: Conditional Voluntary Healthcare Proxy: No Guardianship: No Medical Problems Affecting Mental Status: No Interim History: Presents improved from 04/13 with medication decreases. CAT negative. Continues to discuss his need for benzodiazepines. Full discussion of addiction, potential to [place] and risks. Pt asking for Xanax. States Klonopin at 3 mg did not work for him. Refuses other trials- you are denying my right to have the anxiety treated . Medication Compliance: Yes Side effects from medications: Yes (decreased) Attending Groups: Intermittent Review of Systems Acute medical concerns: No Medical Review of Systems: unchanged Mental Status Exam Mental Status Exam Patient Appearance: Appropriate Patient Orientation: Person, Place, Time and Situation Level of Consciousness: Awake Patient Behavior: Appropriate, Talkative and Good Eye Contact Mood Description: Withdrawn, Depressed, Anxious and Apprehensive Affect Description: Anxious, Flat and Apprehensive Patient Cognition Impaired: No Ability to Follow Directions: Good Speech Pattern: Perseverating, Spontaneous Speech and Soft-Spoken Memory Description: Episodic Impaired Hallucinations: None Delusions: Not Present Perceptual Disturbances: Depersonalization and Derealization Thought Process: Rumination Thought Content: positive for [place] and positive for Circumstantial Depressive Symptoms: Low Self Esteem Judgement: Fair Diagnostics Vital Signs (24Hr): Vital Signs - 24 hr 04/14/23 16:49 04/15/23 08:31 Temperature 97.1 F 97.4 F Pulse Rate 72 89 Respiratory Rate 18 16 Blood Pressure 107/65 133/70 Pulse Oximetry 98 96 Oxygen Delivery Method Room Air Room Air BMI result Body Mass Index 25.3 Labs 04/10/23 07:51 Imaging Radiology Impressions: ITS Impressions Head CT 04/14/23 11:29 IMPRESSION: No acute intracranial abnormality including hemorrhage, mass effect, hydrocephalus, or acute territorial edematous infarction. Medications Medications Current Medications Acetaminophen (Acetaminophen 325 Mg Tablet) 650 mg PO Q6H PRN PRN Reason: Headache/Pain Mild Scale (1-3) Last Admin: 04/15/23 13:06 Dose: 650 mg Al Hydroxide/Mg Hydroxide (Magnesium Hydrox/Alum Hydrox 30 Ml Oral.Susp) 30 ml PO Q6H PRN PRN Reason: Heartburn/Nausea Albuterol Sulfate (Albuterol Sulfate 90 Mcg 8 Gm Inhaler) 2 puff INHALE Q4H PRN PRN Reason: wheeze Amlodipine Besylate (Amlodipine Besylate 5 Mg Tablet) 5 mg PO DAILY [facility]; Protocol Last Admin: 04/14/23 09:20 Dose: 5 mg Benztropine Mesylate (Benztropine Mesylate 1 Mg Tablet) 1 mg PO BID PRN PRN Reason: Extrapyramidal Effects/Symptoms Bupropion HCl (Bupropion Hcl Xl 150 Mg Tab.Er.24h) 150 mg PO DAILY [facility] Last Admin: 04/15/23 08:20 Dose: 150 mg Buspirone HCl (Buspirone Hcl 5 Mg Tablet) 15 mg PO TID [facility] Last Admin: 04/15/23 14:18 Dose: 15 mg Chlorpromazine HCl (Chlorpromazine Hcl 100 Mg Tablet) 100 mg PO TID [facility] Last Admin: 04/15/23 14:18 Dose: 100 mg Chlorpromazine HCl (Chlorpromazine Hcl 100 Mg Tablet) 300 mg PO BEDTIME PRN PRN Reason: psychosis,sleep Last Admin: 04/14/23 23:35 Dose: 300 mg Cyanocobalamin (Cyanocobalamin (Vitamin B-12) 500 Mcg Tablet) 500 mcg PO DAILY [facility] Last Admin: 04/15/23 08:20 Dose: 500 mcg Folic Acid (Folic Acid 1 Mg Tablet) 1 mg PO DAILY [facility] Last Admin: 04/15/23 08:19 Dose: 1 mg Gabapentin (Gabapentin 300 Mg Capsule) 300 mg PO TID [facility] Last Admin: 04/15/23 14:18 Dose: 300 mg Hydroxyzine HCl (Hydroxyzine Hcl 50 Mg Tablet) 50 mg PO Q6H PRN PRN Reason: Anxiety Last Admin: 04/15/23 13:09 Dose: 50 mg Levothyroxine Sodium (Levothyroxine Sodium 25 Mcg Tablet) 25 mcg PO DAILY@0700 [facility] Last Admin: 04/15/23 06:23 Dose: 25 mcg Lidocaine (Lidocaine 4 % Patch Adh..Patch) 1 patch TRANSDERMA DAILY [facility]; Protocol Last Admin: 04/15/23 08:20 Dose: 1 patch Magnesium Hydroxide (Milk Of Magnesia 30 Ml Oral.Susp) 30 ml PO DAILY PRN PRN Reason: Constipation Melatonin (Melatonin 3 Mg Tablet) 9 mg PO DAILY PRN PRN Reason: Insomnia Last Admin: 04/14/23 23:34 Dose: 9 mg Metoprolol Succinate (Metoprolol Succinate Er 25 Mg Tab.Er.24h) 25 mg PO DAILY [facility]; Protocol Last Admin: 04/15/23 08:20 Dose: 25 mg Multivitamins/Vitamin C (Multivitamin Tablet) 1 tab PO DAILY [facility] Last Admin: 04/15/23 08:20 Dose: 1 tab Nicotine (Nicotine 21 Mg Patch.Td24) 21 mg TRANSDERMA DAILY [facility] Last Admin: 04/15/23 08:20 Dose: 21 mg Nicotine Polacrilex (Nicotine Polacrilex 2 Mg Gum) 4 mg BUCCAL Q2H PRN PRN Reason: Nicotine Cravings Last Admin: 04/15/23 09:23 Dose: 4 mg Omeprazole (Omeprazole 20 Mg Capsule.Dr) 20 mg PO DAILY [facility] Last Admin: 04/15/23 08:20 Dose: 20 mg Oxycodone HCl (Oxycodone Hcl Immed Release 5 Mg Tablet) 5 mg PO Q6H PRN PRN Reason: SEVERE PAIN Last Admin: 04/15/23 13:06 Dose: 5 mg Prazosin HCl (Prazosin Hcl 1 Mg Capsule) 2 mg PO BEDTIME [facility]; Protocol Last Admin: 04/14/23 23:34 Dose: 2 mg Thiamine HCl (Thiamine Hcl 100 Mg Tablet) 100 mg PO DAILY [facility] Last Admin: 04/15/23 08:20 Dose: 100 mg Allergies Allergies Allergy/AdvReac Type Severity Reaction Status Date / Time aspirin [ASA] Allergy Unknown FACIAL Verified 04/14/23 09:16 SWELLING Penicillins [PENICILLINS] Allergy Unknown HIVES Verified 04/14/23 09:16 trazodone Allergy Anaphylaxis Verified 04/14/23 09:16 tramadol [TRAMADOL] AdvReac Unknown NAUSEA & Verified 04/14/23 09:16 VOMITING Assessment & Plan Assessment & Plan (1) Alcohol withdrawal: Status: Acute Code(s): F10.939 - Alcohol use, unspecified with withdrawal, unspecified (2) Polysubstance use disorder: Status: Acute Code(s): F19.90 - Other psychoactive substance use, unspecified, uncomplicated Plan Pt is a 57-year-old male with a PMH significant for?HTN, GERD, alcohol use disorder, chronic back and right shoulder pain on chronic opioids, depression, and anxiety who is admitted to [facility] psychiatry unit for increasing depression and anxiety and feeling overwhelmed. Patient also endorses auditory and visual hallucinations. Medical consult for admission H&P. Mood disorder Plan as per psychiatry Chest pain Initial presenting complaint at [facility] ED Had negative cardiac workup at [facility]: negative troponins, EKG Likely secondary to anxiety Chronic shoulder and back pain Continue home analgesics Patient should follow up outpatient with PCP for PT and/or MRI Right ankle fracture Patient should follow up outpatient with PCP and/or orthopedics Dental caries/tooth pain Patient should follow up outpatient with dentist HTN Continue lisinopril, amlodipine, metoprolol Peripheral neuropathy Continue gabapentin GERD Continue pantoprazole Subclinical hypothyroidism TSH elevated at 7.43, T4 WNL and 0.92 Repeat TCH in 6 weeks Follow-up outpatient with PCP Hyperlipidemia Patient's triglycerides 460, cholesterol 318 Patient no longer on statin Should follow up outpatient with PCP Lack of PCP A primary portions is that patient needs to establish care with a PCP in order to have his chronic medical conditions properly addressed Thank you for allowing us to participate in the care of this patient. Signing off at this time. Please let us know if there are any acute complaints or questions. 04/11: Continue current regimen and plans and increased q.h.s. Thorazine to 300 mg. He denies any side effects. Issues of orthostasis discussed 04/12: Continue current regimen and plans. Increase gabapentin to 300 mg t.i.d.. 04/13 Issues with vertigo, dizziness, balance and voice is weak, ?Overmedicated. Pt asking for Xanax. Irritable, some confusion. Lowered BP Gabapentin 300 mg tid Decrease Chlorpromazine to 100 mg tid and 300 mg HS Decrease Wellbutrin XL to 150 mg a.m. Decrease Amlodipine to 5 mg daily Decrease Metoprolol to 25 mg daily 04/14 continue tx. held amlodipine due to low BP. 04/15 trial of diazepam 5 mg bid to assess efficacy of anxiety mgt. Patient educated on: medication risk/benefits and therapeutic strategies Informed Consent: understands Reason for continued inpatient stay Substantial Risk for: rapid decompensation Time Spent With Patient Time: Total time managing care of this patient today ____ minutes.
[2023-04-15 16:33] VITALS: BP 105/59; PULSE 90; RESP 18; TEMP 36.8; O2SAT 98
[2023-04-15] MEDS: diazePAM 5 MG TABLET PO (19:56)
[2023-04-15 21:04] VITALS: BP 103/62; PULSE 94
[2023-04-15] MEDS: Prazosin HCL 1 MG CAPSULE 2 MG PO (21:07)
[2023-04-16] MEDS: hydrOXYzine HCL 50 MG TABLET PO ×3 (00:07→13:57)
[2023-04-16] MEDS: chlorproMAZINE HCl 100 MG TABLET 300 MG PO (00:10)
[2023-04-16] MEDS: Acetaminophen 325 MG TABLET 650 MG PO ×4 (01:26→21:32)
[2023-04-16] MEDS: oxyCODONE HCl Immed Release 5 MG TABLET PO ×4 (01:26→21:31)
[2023-04-16] MEDS: Levothyroxine Sodium 25 MCG TABLET PO (06:19)
[2023-04-16 07:00] VITALS: BMI 25.3
[2023-04-16] MEDS: buPROPion HCl XL 150 MG TAB.ER.24H PO (08:02)
[2023-04-16] MEDS: diazePAM 5 MG TABLET PO (08:02)
[2023-04-16] MEDS: Multivitamin TABLET 1 TAB PO (08:02)
[2023-04-16] MEDS: Omeprazole 20 MG CAPSULE.DR PO (08:02)
[2023-04-16] MEDS: Cyanocobalamin (Vitamin B-12) 500 MCG TABLET PO (08:02)
[2023-04-16] MEDS: Folic Acid 1 MG TABLET PO (08:02)
[2023-04-16] MEDS: busPIRone HCl 5 MG TABLET 15 MG PO ×3 (08:02→21:29)
[2023-04-16] MEDS: Thiamine HCL 100 MG TABLET PO (08:03)
[2023-04-16] MEDS: Nicotine 21 MG PATCH.TD24 TRANSDERMA (08:07)
[2023-04-16] MEDS: Lidocaine 4 % Patch ADH..PATCH 1 PATCH TRANSDERMA (08:07)
[2023-04-16] MEDS: chlorproMAZINE HCl 100 MG TABLET PO ×3 (08:22→21:30)
[2023-04-16] MEDS: Gabapentin 300 MG CAPSULE PO ×3 (08:22→21:29)
[2023-04-16] MEDS: Metoprolol Succinate ER 25 MG TAB.ER.24H PO (08:23)
[2023-04-16 08:34] VITALS: BP 104/69; PULSE 93; RESP 16; TEMP 36.1; O2SAT 96
[2023-04-16] MEDS: OLANZapine ODT 10 MG TAB.RAPDIS TRANSLINGU (11:16)
[2023-04-16] MEDS: diazePAM 5 MG TABLET 10 MG PO ×2 (14:04→21:33)
--- NOTE | 2023-04-16 16:39 | HO.PSYCHPN ---
Subjective Subjective Date of Service: 04/16/23 Reason For Visit: Depression Subjective Notes: Conditional Voluntary Healthcare Proxy: No Guardianship: No Medical Problems Affecting Mental Status: No Interim History: I feel people pulling on my shirt and shoulder all the time. You give meds to other people here to help them, why won't you help me? I am alone, suffering. Alcohol, Xanax calms me. They are all I have left. I hear voices, I use these to drown them and the SI. Discussed his symptoms, full med review with education. Discussed mood stabilizers, clonidine, prazosin, naltreone, vivitrol. He will not consider. Accusatory when discussing Depakote, you want to make me bald? Reviewed mineral treatments when using Depakote if hair loss should become a SE, including selenium. Zyprexa x 1 with poor response- like candy - useless Medication Compliance: Yes Side effects from medications: No Attending Groups: Intermittent Review of Systems Acute medical concerns: No Medical Review of Systems: unchanged Mental Status Exam Mental Status Exam Patient Appearance: Appropriate Patient Orientation: Person, Place, Time and Situation Level of Consciousness: Awake Patient Behavior: Appropriate, Talkative and Good Eye Contact Mood Description: Withdrawn, Depressed, Hostile, Anxious and Apprehensive Affect Description: Anxious, Flat and Apprehensive Patient Cognition Impaired: No Ability to Follow Directions: Good Speech Pattern: Perseverating, Spontaneous Speech and Soft-Spoken Memory Description: Episodic Impaired Hallucinations: None Delusions: Not Present Perceptual Disturbances: Depersonalization and Derealization Thought Process: Rumination and Confusion Thought Content: positive for [place], positive for Circumstantial and positive for Suicidal Ideation (passive, at times) Depressive Symptoms: Low Self Esteem Judgement: Fair Diagnostics Vital Signs (24Hr): Vital Signs - 24 hr 04/15/23 21:04 04/16/23 08:34 Temperature 96.9 F Pulse Rate 94 93 Respiratory Rate 16 Blood Pressure 103/62 104/69 Pulse Oximetry 96 Oxygen Delivery Method Room Air Room Air BMI result Body Mass Index 25.3 Labs 04/10/23 07:51 Imaging Radiology Impressions: ITS Impressions Head CT 04/14/23 11:29 IMPRESSION: No acute intracranial abnormality including hemorrhage, mass effect, hydrocephalus, or acute territorial edematous infarction. Medications Medications Current Medications Acetaminophen (Acetaminophen 325 Mg Tablet) 650 mg PO Q6H PRN PRN Reason: Headache/Pain Mild Scale (1-3) Last Admin: 04/16/23 14:56 Dose: 650 mg Al Hydroxide/Mg Hydroxide (Magnesium Hydrox/Alum Hydrox 30 Ml Oral.Susp) 30 ml PO Q6H PRN PRN Reason: Heartburn/Nausea Albuterol Sulfate (Albuterol Sulfate 90 Mcg 8 Gm Inhaler) 2 puff INHALE Q4H PRN PRN Reason: wheeze Amlodipine Besylate (Amlodipine Besylate 5 Mg Tablet) 5 mg PO DAILY [facility]; Protocol Last Admin: 04/14/23 09:20 Dose: 5 mg Benztropine Mesylate (Benztropine Mesylate 1 Mg Tablet) 1 mg PO BID PRN PRN Reason: Extrapyramidal Effects/Symptoms Bupropion HCl (Bupropion Hcl Xl 150 Mg Tab.Er.24h) 150 mg PO DAILY [facility] Last Admin: 04/16/23 08:02 Dose: 150 mg Buspirone HCl (Buspirone Hcl 5 Mg Tablet) 15 mg PO TID [facility] Last Admin: 04/16/23 14:56 Dose: 15 mg Chlorpromazine HCl (Chlorpromazine Hcl 100 Mg Tablet) 100 mg PO TID [facility] Last Admin: 04/16/23 14:56 Dose: 100 mg Chlorpromazine HCl (Chlorpromazine Hcl 100 Mg Tablet) 300 mg PO BEDTIME PRN PRN Reason: psychosis,sleep Last Admin: 04/16/23 00:10 Dose: 300 mg Cyanocobalamin (Cyanocobalamin (Vitamin B-12) 500 Mcg Tablet) 500 mcg PO DAILY [facility] Last Admin: 04/16/23 08:02 Dose: 500 mcg Diazepam (Diazepam 5 Mg Tablet) 10 mg PO TID PRN PRN Reason: severe anxiety Last Admin: 04/16/23 14:04 Dose: 10 mg Folic Acid (Folic Acid 1 Mg Tablet) 1 mg PO DAILY [facility] Last Admin: 04/16/23 08:02 Dose: 1 mg Gabapentin (Gabapentin 300 Mg Capsule) 300 mg PO TID [facility] Last Admin: 04/16/23 14:56 Dose: 300 mg Hydroxyzine HCl (Hydroxyzine Hcl 50 Mg Tablet) 50 mg PO Q6H PRN PRN Reason: Anxiety Last Admin: 04/16/23 13:57 Dose: 50 mg Levothyroxine Sodium (Levothyroxine Sodium 25 Mcg Tablet) 25 mcg PO DAILY@0700 [facility] Last Admin: 04/16/23 06:19 Dose: 25 mcg Lidocaine (Lidocaine 4 % Patch Adh..Patch) 1 patch TRANSDERMA DAILY [facility]; Protocol Last Admin: 04/16/23 08:07 Dose: 1 patch Magnesium Hydroxide (Milk Of Magnesia 30 Ml Oral.Susp) 30 ml PO DAILY PRN PRN Reason: Constipation Melatonin (Melatonin 3 Mg Tablet) 9 mg PO DAILY PRN PRN Reason: Insomnia Last Admin: 04/14/23 23:34 Dose: 9 mg Metoprolol Succinate (Metoprolol Succinate Er 25 Mg Tab.Er.24h) 25 mg PO DAILY [facility]; Protocol Last Admin: 04/16/23 08:23 Dose: 25 mg Multivitamins/Vitamin C (Multivitamin Tablet) 1 tab PO DAILY [facility] Last Admin: 04/16/23 08:02 Dose: 1 tab Nicotine (Nicotine 21 Mg Patch.Td24) 21 mg TRANSDERMA DAILY [facility] Last Admin: 04/16/23 08:07 Dose: 21 mg Nicotine Polacrilex (Nicotine Polacrilex 2 Mg Gum) 4 mg BUCCAL Q2H PRN PRN Reason: Nicotine Cravings Last Admin: 04/15/23 16:30 Dose: 4 mg Omeprazole (Omeprazole 20 Mg Capsule.Dr) 20 mg PO DAILY [facility] Last Admin: 04/16/23 08:02 Dose: 20 mg Oxycodone HCl (Oxycodone Hcl Immed Release 5 Mg Tablet) 5 mg PO Q6H PRN PRN Reason: SEVERE PAIN Last Admin: 04/16/23 14:57 Dose: 5 mg Prazosin HCl (Prazosin Hcl 1 Mg Capsule) 2 mg PO BEDTIME [facility]; Protocol Last Admin: 04/15/23 21:07 Dose: 2 mg Thiamine HCl (Thiamine Hcl 100 Mg Tablet) 100 mg PO DAILY [facility] Last Admin: 04/16/23 08:03 Dose: 100 mg Allergies Allergies Allergy/AdvReac Type Severity Reaction Status Date / Time aspirin [ASA] Allergy Unknown FACIAL Verified 04/14/23 09:16 SWELLING Penicillins [PENICILLINS] Allergy Unknown HIVES Verified 04/14/23 09:16 trazodone Allergy Anaphylaxis Verified 04/14/23 09:16 tramadol [TRAMADOL] AdvReac Unknown NAUSEA & Verified 04/14/23 09:16 VOMITING Assessment & Plan Assessment & Plan (1) Alcohol withdrawal: Status: Acute Code(s): F10.939 - Alcohol use, unspecified with withdrawal, unspecified (2) Polysubstance use disorder: Status: Acute Code(s): F19.90 - Other psychoactive substance use, unspecified, uncomplicated Plan Pt is a 57-year-old male with a PMH significant for?HTN, GERD, alcohol use disorder, chronic back and right shoulder pain on chronic opioids, depression, and anxiety who is admitted to psychiatry unit for increasing depression and anxiety and feeling overwhelmed. Patient also endorses auditory and visual hallucinations. Medical consult for admission H&P. Mood disorder Plan as per psychiatry Chest pain Initial presenting complaint at [facility] ED Had negative cardiac workup at [facility]: negative troponins, EKG Likely secondary to anxiety Chronic shoulder and back pain Continue home analgesics Patient should follow up outpatient with PCP for PT and/or MRI Right ankle fracture Patient should follow up outpatient with PCP and/or orthopedics Dental caries/tooth pain Patient should follow up outpatient with dentist HTN Continue lisinopril, amlodipine, metoprolol Peripheral neuropathy Continue gabapentin GERD Continue pantoprazole Subclinical hypothyroidism TSH elevated at 7.43, T4 WNL and 0.92 Repeat TCH in 6 weeks Follow-up outpatient with PCP Hyperlipidemia Patient's triglycerides 460, cholesterol 318 Patient no longer on statin Should follow up outpatient with PCP Lack of PCP A primary portions is that patient needs to establish care with a PCP in order to have his chronic medical conditions properly addressed Thank you for allowing us to participate in the care of this patient. Signing off at this time. Please let us know if there are any acute complaints or questions. 04/11: Continue current regimen and plans and increased q.h.s. Thorazine to 300 mg. He denies any side effects. Issues of orthostasis discussed 04/12: Continue current regimen and plans. Increase gabapentin to 300 mg t.i.d.. 04/13 Issues with vertigo, dizziness, balance and voice is weak, ?Overmedicated. Pt asking for Xanax. Irritable, some confusion. Lowered BP Gabapentin 300 mg tid Decrease Chlorpromazine to 100 mg tid and 300 mg HS Decrease Wellbutrin XL to 150 mg a.m. Decrease Amlodipine to 5 mg daily Decrease Metoprolol to 25 mg daily 04/14 continue tx. held amlodipine due to low BP. 04/15 trial of diazepam 5 mg bid to assess efficacy of anxiety mgt. 04/16 dc diazepam diazepam [address] Thornton will consult with pt to review options ? [place]'s sx. Patient educated on: medication risk/benefits and therapeutic strategies Informed Consent: understands and further education needed Reason for continued inpatient stay Substantial Risk for: med/psych decompensation Time Spent With Patient Time: Total time managing care of this patient today ____ minutes.
[2023-04-16 17:47] VITALS: BP 103/68; PULSE 94; RESP 16; TEMP 36.3; O2SAT 97
[2023-04-16] MEDS: Prazosin HCL 1 MG CAPSULE 2 MG PO (21:29)
[2023-04-16 21:40] VITALS: BP 102/64
[2023-04-17] MEDS: Acetaminophen 325 MG TABLET 650 MG PO ×3 (06:18→19:05)
[2023-04-17] MEDS: oxyCODONE HCl Immed Release 5 MG TABLET PO ×3 (06:19→19:02)
[2023-04-17] MEDS: Levothyroxine Sodium 25 MCG TABLET PO (06:19)
[2023-04-17 08:02] VITALS: BP 99/67; PULSE 102; RESP 16; TEMP 36.8; O2SAT 98
[2023-04-17] MEDS: Omeprazole 20 MG CAPSULE.DR PO (08:44)
[2023-04-17] MEDS: Gabapentin 300 MG CAPSULE PO ×3 (08:44→21:44)
[2023-04-17] MEDS: Folic Acid 1 MG TABLET PO (08:44)
[2023-04-17] MEDS: buPROPion HCl XL 150 MG TAB.ER.24H PO (08:45)
[2023-04-17] MEDS: Thiamine HCL 100 MG TABLET PO (08:45)
[2023-04-17] MEDS: Metoprolol Succinate ER 25 MG TAB.ER.24H PO (08:45)
[2023-04-17] MEDS: Cyanocobalamin (Vitamin B-12) 500 MCG TABLET PO (08:45)
[2023-04-17] MEDS: Multivitamin TABLET 1 TAB PO (08:45)
[2023-04-17] MEDS: chlorproMAZINE HCl 100 MG TABLET PO ×3 (08:45→21:43)
[2023-04-17] MEDS: busPIRone HCl 5 MG TABLET 15 MG PO ×3 (08:45→21:43)
[2023-04-17] MEDS: Lidocaine 4 % Patch ADH..PATCH 1 PATCH TRANSDERMA (08:58)
[2023-04-17] MEDS: Nicotine 21 MG PATCH.TD24 TRANSDERMA (08:58)
[2023-04-17] MEDS: diazePAM 5 MG TABLET PO ×2 (09:51→16:04)
[2023-04-17] MEDS: hydrOXYzine HCL 50 MG TABLET PO ×2 (12:07→21:46)
--- NOTE | 2023-04-17 16:24 | P.PNPSI_ITS ---
Subjective Subjective Date of Service: 04/17/23 Reason For Visit: Depression Subjective Notes: Conditional Voluntary Healthcare Proxy: No Guardianship: No Medical Problems Affecting Mental Status: No Interim History: Pt reports fall to team without injury. Team reports sedation, some confusion, difficulty awakening, garbled speech. Demanding all prn's, multiple complaints about not having enough medication to manage symptoms. There is an inability to negotiate reasonably with him. Valium decreased to 5 mg tid prn. Pt angry, not able to reasonably discuss this addictive symptom and pattern Tells team we have ruined his life as we are not giving more medications, which his physical stature cannot manage as evidenced by SE. Team working on placement. Dr. Thornton will consult on 04/20. Medication Compliance: Yes Side effects from medications: Yes Attending Groups: No Review of Systems Medical Review of Systems: unchanged Mental Status Exam Mental Status Exam Patient Appearance: Fatigued Patient Orientation: Person, Place, Time and Situation Level of Consciousness: Awake and Sedated Patient Behavior: Talkative, Sedated, Resistive to Care and Good Eye Contact Mood Description: Withdrawn, Depressed, Hostile, Anxious and Apprehensive Affect Description: Flat Patient Cognition Impaired: No Ability to Follow Directions: Good Speech Pattern: Perseverating, Spontaneous Speech and Soft-Spoken Memory Description: Episodic Impaired Thought Process: Rumination and Confusion Thought Content: positive for [place], positive for Circumstantial, positive for Perseveration and positive for Poverty of Content Depressive Symptoms: Increased Irritability, Difficulty Sleeping and Low Self Esteem Abnormal Motor Activity Signs and Symptoms: Restlessness Judgement: Fair Diagnostics Vital Signs (24Hr): Vital Signs - 24 hr 04/16/23 17:47 04/16/23 21:40 04/17/23 08:02 Temperature 97.4 F 98.3 F Pulse Rate 94 102 H Respiratory Rate 16 16 Blood Pressure 103/68 102/64 99/67 Pulse Oximetry 97 98 Oxygen Delivery Method Room Air Room Air BMI result Body Mass Index 25.3 Labs 04/10/23 07:51 Imaging Radiology Impressions: ITS Impressions Head CT 04/14/23 11:29 IMPRESSION: No acute intracranial abnormality including hemorrhage, mass effect, hydrocephalus, or acute territorial edematous infarction. Medications Medications Current Medications Acetaminophen (Acetaminophen 325 Mg Tablet) 650 mg PO Q6H PRN PRN Reason: Headache/Pain Mild Scale (1-3) Last Admin: 04/17/23 12:34 Dose: 650 mg Al Hydroxide/Mg Hydroxide (Magnesium Hydrox/Alum Hydrox 30 Ml Oral.Susp) 30 ml PO Q6H PRN PRN Reason: Heartburn/Nausea Albuterol Sulfate (Albuterol Sulfate 90 Mcg 8 Gm Inhaler) 2 puff INHALE Q4H PRN PRN Reason: wheeze Amlodipine Besylate (Amlodipine Besylate 5 Mg Tablet) 5 mg PO DAILY [facility]; Protocol Last Admin: 04/14/23 09:20 Dose: 5 mg Benztropine Mesylate (Benztropine Mesylate 1 Mg Tablet) 1 mg PO BID PRN PRN Reason: Extrapyramidal Effects/Symptoms Bupropion HCl (Bupropion Hcl Xl 150 Mg Tab.Er.24h) 150 mg PO DAILY [facility] Last Admin: 04/17/23 08:45 Dose: 150 mg Buspirone HCl (Buspirone Hcl 5 Mg Tablet) 15 mg PO TID [facility] Last Admin: 04/17/23 14:23 Dose: 15 mg Chlorpromazine HCl (Chlorpromazine Hcl 100 Mg Tablet) 100 mg PO TID [facility] Last Admin: 04/17/23 14:23 Dose: 100 mg Chlorpromazine HCl (Chlorpromazine Hcl 100 Mg Tablet) 300 mg PO BEDTIME PRN PRN Reason: psychosis,sleep Last Admin: 04/16/23 00:10 Dose: 300 mg Cyanocobalamin (Cyanocobalamin (Vitamin B-12) 500 Mcg Tablet) 500 mcg PO DAILY [facility] Last Admin: 04/17/23 08:45 Dose: 500 mcg Diazepam (Diazepam 5 Mg Tablet) 5 mg PO TID PRN PRN Reason: severe anxiety Last Admin: 04/17/23 16:04 Dose: 5 mg Folic Acid (Folic Acid 1 Mg Tablet) 1 mg PO DAILY [facility] Last Admin: 04/17/23 08:44 Dose: 1 mg Gabapentin (Gabapentin 300 Mg Capsule) 300 mg PO TID [facility] Last Admin: 04/17/23 14:26 Dose: 300 mg Hydroxyzine HCl (Hydroxyzine Hcl 50 Mg Tablet) 50 mg PO Q6H PRN PRN Reason: Anxiety Last Admin: 04/17/23 12:07 Dose: 50 mg Levothyroxine Sodium (Levothyroxine Sodium 25 Mcg Tablet) 25 mcg PO DAILY@0700 [facility] Last Admin: 04/17/23 06:19 Dose: 25 mcg Lidocaine (Lidocaine 4 % Patch Adh..Patch) 1 patch TRANSDERMA DAILY [facility]; Protocol Last Admin: 04/17/23 08:58 Dose: 1 patch Magnesium Hydroxide (Milk Of Magnesia 30 Ml Oral.Susp) 30 ml PO DAILY PRN PRN Reason: Constipation Melatonin (Melatonin 3 Mg Tablet) 9 mg PO DAILY PRN PRN Reason: Insomnia Last Admin: 04/14/23 23:34 Dose: 9 mg Metoprolol Succinate (Metoprolol Succinate Er 25 Mg Tab.Er.24h) 25 mg PO DAILY [facility]; Protocol Last Admin: 04/17/23 08:45 Dose: 25 mg Multivitamins/Vitamin C (Multivitamin Tablet) 1 tab PO DAILY [facility] Last Admin: 04/17/23 08:45 Dose: 1 tab Nicotine (Nicotine 21 Mg Patch.Td24) 21 mg TRANSDERMA DAILY [facility] Last Admin: 04/17/23 08:58 Dose: 21 mg Nicotine Polacrilex (Nicotine Polacrilex 2 Mg Gum) 4 mg BUCCAL Q2H PRN PRN Reason: Nicotine Cravings Last Admin: 04/15/23 16:30 Dose: 4 mg Omeprazole (Omeprazole 20 Mg Capsule.Dr) 20 mg PO DAILY [facility] Last Admin: 04/17/23 08:44 Dose: 20 mg Oxycodone HCl (Oxycodone Hcl Immed Release 5 Mg Tablet) 5 mg PO Q6H PRN PRN Reason: SEVERE PAIN Last Admin: 04/17/23 12:34 Dose: 5 mg Prazosin HCl (Prazosin Hcl 1 Mg Capsule) 2 mg PO BEDTIME [facility]; Protocol Last Admin: 04/16/23 21:29 Dose: 2 mg Thiamine HCl (Thiamine Hcl 100 Mg Tablet) 100 mg PO DAILY [facility] Last Admin: 04/17/23 08:45 Dose: 100 mg Allergies Allergies Allergy/AdvReac Type Severity Reaction Status Date / Time aspirin [ASA] Allergy Unknown FACIAL Verified 04/14/23 09:16 SWELLING Penicillins [PENICILLINS] Allergy Unknown HIVES Verified 04/14/23 09:16 trazodone Allergy Anaphylaxis Verified 04/14/23 09:16 tramadol [TRAMADOL] AdvReac Unknown NAUSEA & Verified 04/14/23 09:16 VOMITING Assessment & Plan Assessment & Plan (1) Alcohol withdrawal: Status: Acute Code(s): F10.939 - Alcohol use, unspecified with withdrawal, unspecified (2) Polysubstance use disorder: Status: Acute Code(s): F19.90 - Other psychoactive substance use, unspecified, uncomplicated Plan Pt is a 57-year-old male with a PMH significant for?HTN, GERD, alcohol use disorder, chronic back and right shoulder pain on chronic opioids, depression, and anxiety who is admitted to psychiatry unit for increasing depression and anxiety and feeling overwhelmed. Patient also endorses auditory and visual hallucinations. Medical consult for admission H&P. Mood disorder Plan as per psychiatry Chest pain Initial presenting complaint at [facility] ED Had negative cardiac workup at [facility]: negative troponins, EKG Likely secondary to anxiety Chronic shoulder and back pain Continue home analgesics Patient should follow up outpatient with PCP for PT and/or MRI Right ankle fracture Patient should follow up outpatient with PCP and/or orthopedics Dental caries/tooth pain Patient should follow up outpatient with dentist HTN Continue lisinopril, amlodipine, metoprolol Peripheral neuropathy Continue gabapentin GERD Continue pantoprazole Subclinical hypothyroidism TSH elevated at 7.43, T4 WNL and 0.92 Repeat TCH in 6 weeks Follow-up outpatient with PCP Hyperlipidemia Patient's triglycerides 460, cholesterol 318 Patient no longer on statin Should follow up outpatient with PCP Lack of PCP A primary portions is that patient needs to establish care with a PCP in order to have his chronic medical conditions properly addressed Thank you for allowing us to participate in the care of this patient. Signing off at this time. Please let us know if there are any acute complaints or questions. 04/11: Continue current regimen and plans and increased q.h.s. Thorazine to 300 mg. He denies any side effects. Issues of orthostasis discussed 04/12: Continue current regimen and plans. Increase gabapentin to 300 mg t.i.d.. 04/13 Issues with vertigo, dizziness, balance and voice is weak, ?Overmedicated. Pt asking for Xanax. Irritable, some confusion. Lowered BP Gabapentin 300 mg tid Decrease Chlorpromazine to 100 mg tid and 300 mg HS Decrease Wellbutrin XL to 150 mg a.m. Decrease Amlodipine to 5 mg daily Decrease Metoprolol to 25 mg daily 04/14 continue tx. held amlodipine due to low BP. 04/15 trial of diazepam 5 mg bid to assess efficacy of anxiety mgt. 04/16 dc diazepam diazepam [address] Thornton will consult with pt to review options ? Roberta's sx. 04/17 Presents with increase in sedation, reports fall. Decrease Diazepam to 5 mg tid prn Informed Consent: further education needed Reason for continued inpatient stay Substantial Risk for: inability to function and rapid decompensation Time Spent With Patient Time: Total time managing care of this patient today ____ minutes.
[2023-04-17 18:00] VITALS: BP 110/68; PULSE 100; RESP 16
[2023-04-17] MEDS: Prazosin HCL 1 MG CAPSULE 2 MG PO (21:44)
[2023-04-17] MEDS: chlorproMAZINE HCl 100 MG TABLET 300 MG PO (23:00)
[2023-04-18 06:00] VITALS: BP 108/66; PULSE 92; RESP 16; TEMP 36.1; O2SAT 94
[2023-04-18] MEDS: Levothyroxine Sodium 25 MCG TABLET PO (06:07)
[2023-04-18] MEDS: diazePAM 5 MG TABLET PO ×3 (07:04→22:56)
[2023-04-18] MEDS: Gabapentin 300 MG CAPSULE PO ×3 (08:30→20:48)
[2023-04-18] MEDS: Cyanocobalamin (Vitamin B-12) 500 MCG TABLET PO (08:30)
[2023-04-18] MEDS: Metoprolol Succinate ER 25 MG TAB.ER.24H PO (08:30)
[2023-04-18] MEDS: Folic Acid 1 MG TABLET PO (08:30)
[2023-04-18] MEDS: busPIRone HCl 5 MG TABLET 15 MG PO ×3 (08:30→20:48)
[2023-04-18] MEDS: Thiamine HCL 100 MG TABLET PO (08:30)
[2023-04-18] MEDS: chlorproMAZINE HCl 100 MG TABLET PO ×3 (08:30→20:50)
[2023-04-18] MEDS: buPROPion HCl XL 150 MG TAB.ER.24H PO (08:30)
[2023-04-18] MEDS: Omeprazole 20 MG CAPSULE.DR PO (08:31)
[2023-04-18] MEDS: Multivitamin TABLET 1 TAB PO (08:31)
[2023-04-18] MEDS: Nicotine 21 MG PATCH.TD24 TRANSDERMA (08:35)
[2023-04-18] MEDS: Lidocaine 4 % Patch ADH..PATCH 1 PATCH TRANSDERMA (08:36)
[2023-04-18] MEDS: oxyCODONE HCl Immed Release 5 MG TABLET PO ×3 (08:39→20:49)
[2023-04-18] MEDS: Acetaminophen 325 MG TABLET 650 MG PO ×2 (09:10→15:14)
[2023-04-18] MEDS: Nicotine Polacrilex 2 MG GUM 4 MG BUCCAL (15:15)
[2023-04-18] MEDS: hydrOXYzine HCL 50 MG TABLET PO (18:32)
--- NOTE | 2023-04-18 18:54 | HO.PSYCHPN ---
Subjective Subjective Date of Service: 04/18/23 Reason For Visit: Depression Subjective Notes: Conditional Voluntary Healthcare Proxy: No Guardianship: No Medical Problems Affecting Mental Status: Yes (?) Interim History: Pt seen, discussed with the team. He remains angry with medication decreases without insight as to risks of oversedation. Attempted discussion and education without success. Demanding Xanax. Discussed that we would not be providing Xanax. Question of some sx of possible delirium, Wernicke's. Will repeat CBCD, CMP, Ammonia. Other labs are intact. Medication Compliance: Yes Side effects from medications: Yes (confusion) Attending Groups: Intermittent Review of Systems Acute medical concerns: No Medical Review of Systems: unchanged Mental Status Exam Mental Status Exam Patient Appearance: Fatigued Patient Orientation: Person, Place, Time and Situation Level of Consciousness: Awake and Sedated Patient Behavior: Talkative, Sedated, Resistive to Care and Good Eye Contact Mood Description: Withdrawn, Depressed, Hostile, Anxious and Apprehensive Affect Description: Flat Patient Cognition Impaired: No Ability to Follow Directions: Good Speech Pattern: Perseverating, Spontaneous Speech and Soft-Spoken Memory Description: Episodic Impaired Thought Process: Rumination and Confusion Thought Content: positive for [place], positive for [place]um[place], positive for Perseveration and positive for Poverty of Content Depressive Symptoms: Increased Irritability, Difficulty Sleeping and Low Self Esteem Abnormal Motor Activity Signs and Symptoms: Restlessness Judgement: Fair Diagnostics Vital Signs (24Hr): Vital Signs - 24 hr 04/18/23 06:00 Temperature 97.0 F Pulse Rate 92 Respiratory Rate 16 Blood Pressure 108/66 Pulse Oximetry 94 Oxygen Delivery Method Room Air BMI result Body Mass Index 25.3 Labs 04/10/23 07:51 Imaging Radiology Impressions: ITS Impressions Head CT 04/14/23 11:29 IMPRESSION: No acute intracranial abnormality including hemorrhage, mass effect, hydrocephalus, or acute territorial edematous infarction. Medications Medications Current Medications Acetaminophen (Acetaminophen 325 Mg Tablet) 650 mg PO Q6H PRN PRN Reason: Headache/Pain Mild Scale (1-3) Last Admin: 04/18/23 15:14 Dose: 650 mg Al Hydroxide/Mg Hydroxide (Magnesium Hydrox/Alum Hydrox 30 Ml Oral.Susp) 30 ml PO Q6H PRN PRN Reason: Heartburn/Nausea Albuterol Sulfate (Albuterol Sulfate 90 Mcg 8 Gm Inhaler) 2 puff INHALE Q4H PRN PRN Reason: wheeze Amlodipine Besylate (Amlodipine Besylate 5 Mg Tablet) 5 mg PO DAILY [facility]; Protocol Last Admin: 04/14/23 09:20 Dose: 5 mg Benztropine Mesylate (Benztropine Mesylate 1 Mg Tablet) 1 mg PO BID PRN PRN Reason: Extrapyramidal Effects/Symptoms Bupropion HCl (Bupropion Hcl Xl 150 Mg Tab.Er.24h) 150 mg PO DAILY [facility] Last Admin: 04/18/23 08:30 Dose: 150 mg Buspirone HCl (Buspirone Hcl 5 Mg Tablet) 15 mg PO TID [facility] Last Admin: 04/18/23 14:17 Dose: 15 mg Chlorpromazine HCl (Chlorpromazine Hcl 100 Mg Tablet) 100 mg PO TID [facility] Last Admin: 04/18/23 14:17 Dose: 100 mg Chlorpromazine HCl (Chlorpromazine Hcl 100 Mg Tablet) 300 mg PO BEDTIME PRN PRN Reason: psychosis,sleep Last Admin: 04/17/23 23:00 Dose: 300 mg Cyanocobalamin (Cyanocobalamin (Vitamin B-12) 500 Mcg Tablet) 500 mcg PO DAILY [facility] Last Admin: 04/18/23 08:30 Dose: 500 mcg Diazepam (Diazepam 5 Mg Tablet) 5 mg PO TID PRN PRN Reason: severe anxiety Last Admin: 04/18/23 15:12 Dose: 5 mg Folic Acid (Folic Acid 1 Mg Tablet) 1 mg PO DAILY [facility] Last Admin: 04/18/23 08:30 Dose: 1 mg Gabapentin (Gabapentin 300 Mg Capsule) 300 mg PO TID [facility] Last Admin: 04/18/23 14:18 Dose: 300 mg Hydroxyzine HCl (Hydroxyzine Hcl 50 Mg Tablet) 50 mg PO Q6H PRN PRN Reason: Anxiety Last Admin: 04/18/23 18:32 Dose: 50 mg Levothyroxine Sodium (Levothyroxine Sodium 25 Mcg Tablet) 25 mcg PO DAILY@0700 [facility] Last Admin: 04/18/23 06:07 Dose: 25 mcg Lidocaine (Lidocaine 4 % Patch Adh..Patch) 1 patch TRANSDERMA DAILY [facility]; Protocol Last Admin: 04/18/23 08:36 Dose: 1 patch Magnesium Hydroxide (Milk Of Magnesia 30 Ml Oral.Susp) 30 ml PO DAILY PRN PRN Reason: Constipation Melatonin (Melatonin 3 Mg Tablet) 9 mg PO DAILY PRN PRN Reason: Insomnia Last Admin: 04/14/23 23:34 Dose: 9 mg Metoprolol Succinate (Metoprolol Succinate Er 25 Mg Tab.Er.24h) 25 mg PO DAILY [facility]; Protocol Last Admin: 04/18/23 08:30 Dose: 25 mg Multivitamins/Vitamin C (Multivitamin Tablet) 1 tab PO DAILY [facility] Last Admin: 04/18/23 08:31 Dose: 1 tab Nicotine (Nicotine 21 Mg Patch.Td24) 21 mg TRANSDERMA DAILY [facility] Last Admin: 04/18/23 08:35 Dose: 21 mg Nicotine Polacrilex (Nicotine Polacrilex 2 Mg Gum) 4 mg BUCCAL Q2H PRN PRN Reason: Nicotine Cravings Last Admin: 04/18/23 15:15 Dose: 4 mg Omeprazole (Omeprazole 20 Mg Capsule.Dr) 20 mg PO DAILY [facility] Last Admin: 04/18/23 08:31 Dose: 20 mg Oxycodone HCl (Oxycodone Hcl Immed Release 5 Mg Tablet) 5 mg PO Q6H PRN PRN Reason: SEVERE PAIN Last Admin: 04/18/23 14:43 Dose: 5 mg Prazosin HCl (Prazosin Hcl 1 Mg Capsule) 2 mg PO BEDTIME [facility]; Protocol Last Admin: 04/17/23 21:44 Dose: 2 mg Thiamine HCl (Thiamine Hcl 100 Mg Tablet) 100 mg PO DAILY [facility] Last Admin: 04/18/23 08:30 Dose: 100 mg Allergies Allergies Allergy/AdvReac Type Severity Reaction Status Date / Time aspirin [ASA] Allergy Unknown FACIAL Verified 04/14/23 09:16 SWELLING Penicillins [PENICILLINS] Allergy Unknown HIVES Verified 04/14/23 09:16 trazodone Allergy Anaphylaxis Verified 04/14/23 09:16 tramadol [TRAMADOL] AdvReac Unknown NAUSEA & Verified 04/14/23 09:16 VOMITING Assessment & Plan Assessment & Plan (1) Alcohol withdrawal: Status: Acute Code(s): F10.939 - Alcohol use, unspecified with withdrawal, unspecified (2) Polysubstance use disorder: Status: Acute Code(s): F19.90 - Other psychoactive substance use, unspecified, uncomplicated (3) Schizoaffective disorder: Status: Acute Code(s): F25.9 - Schizoaffective disorder, unspecified Plan Pt is a 57-year-old male with a PMH significant for?HTN, GERD, alcohol use disorder, chronic back and right shoulder pain on chronic opioids, depression, and anxiety who is admitted to [facility] psychiatry unit for increasing depression and anxiety and feeling overwhelmed. Patient also endorses auditory and visual hallucinations. Medical consult for admission H&P. Mood disorder Plan as per psychiatry Chest pain Initial presenting complaint at [facility] ED Had negative cardiac workup at [facility]: negative troponins, EKG Likely secondary to anxiety Chronic shoulder and back pain Continue home analgesics Patient should follow up outpatient with PCP for PT and/or MRI Right ankle fracture Patient should follow up outpatient with PCP and/or orthopedics Dental caries/tooth pain Patient should follow up outpatient with dentist HTN Continue lisinopril, amlodipine, metoprolol Peripheral neuropathy Continue gabapentin GERD Continue pantoprazole Subclinical hypothyroidism TSH elevated at 7.43, T4 WNL and 0.92 Repeat TCH in 6 weeks Follow-up outpatient with PCP Hyperlipidemia Patient's triglycerides 460, cholesterol 318 Patient no longer on statin Should follow up outpatient with PCP Lack of PCP A primary portions is that patient needs to establish care with a PCP in order to have his chronic medical conditions properly addressed Thank you for allowing us to participate in the care of this patient. Signing off at this time. Please let us know if there are any acute complaints or questions. 04/11: Continue current regimen and plans and increased q.h.s. Thorazine to 300 mg. He denies any side effects. Issues of orthostasis discussed 04/12: Continue current regimen and plans. Increase gabapentin to 300 mg t.i.d.. 04/13 Issues with vertigo, dizziness, balance and voice is weak, ?Overmedicated. Pt asking for Xanax. Irritable, some confusion. Lowered BP Gabapentin 300 mg tid Decrease Chlorpromazine to 100 mg tid and 300 mg HS Decrease Wellbutrin XL to 150 mg a.m. Decrease Amlodipine to 5 mg daily Decrease Metoprolol to 25 mg daily 04/14 continue tx. held amlodipine due to low BP. 04/15 trial of diazepam 5 mg bid to assess efficacy of anxiety mgt. 04/16 dc diazepam diazepam [address] Thornton will consult with pt to review options ? Roberta's sx. 04/17 Presents with increase in sedation, reports fall. Decrease Diazepam to 5 mg tid prn 04/18/23 CBCD, CMP, Ammonia level Patient educated on: medication risk/benefits Informed Consent: does not understand Reason for continued inpatient stay Substantial Risk for: rapid decompensation Time Spent With Patient Time: Total time managing care of this patient today ____ minutes.
[2023-04-18 20:15] VITALS: BP 112/74; PULSE 94; TEMP 36.4
[2023-04-19] MEDS: chlorproMAZINE HCl 100 MG TABLET 300 MG PO (00:44)
[2023-04-19] MEDS: Melatonin 3 MG TABLET 9 MG PO ×2 (03:22→22:06)
[2023-04-19] MEDS: oxyCODONE HCl Immed Release 5 MG TABLET PO ×4 (03:22→22:33)
[2023-04-19] MEDS: Acetaminophen 325 MG TABLET 650 MG PO ×3 (03:24→22:34)
[2023-04-19] MEDS: Levothyroxine Sodium 25 MCG TABLET PO (06:32)
[2023-04-19 07:40] LABS: MANUAL DIFF FLAG NO
[2023-04-19 07:43] LABS: Basophils Absolute Auto 0.1 X10*3/uL (0.0-0.2); Basophils Percent Auto 0.8 % (0-2); Eosinophils Absolute Auto 0.3 X10*3/uL (0.0-0.4); Eosinophils Percent Auto 4.5 % (0-4); Hematocrit 30.4 % (42.0-52.0); Hemoglobin 10.3 g/dl (14.0-18.0); Imm Gran Abs Auto 0.03 X10*3/uL (0.00-0.03); Imm Gran Pct Auto 0.4 % (0.0-0.4); Lymphocytes Absolute Auto 1.3 X10*3/uL (1.2-4.9); Lymphocytes Percent Auto 17.9 % (20-40); Mean Corpuscular HGB Conc 33.9 g/dl (31.0-36.0); Mean Corpuscular Hemoglobin 31.9 pg (27.0-33.0); Mean Corpuscular Volume 94.1 fL (80.0-98.0); Mean Platelet Volume 9.2 fL (9.4-12.4); Monocytes Absolute Auto 0.7 X10*3/uL (0.1-1.2); Monocytes Percent Auto 10.3 % (2-11); Neutrophils Absolute Auto 4.8 x10*3/uL (2.0-8.3); Neutrophils Percent Auto 66.1 % (45-73); Platelet Count 188 X10*3/uL (160-400); Red Blood Count 3.23 X10*6/uL (4.60-5.80); Red Cell Distribution Width 11.9 % (11.0-16.0); White Blood Count 7.2 X10*3/uL (4.8-10.8)
[2023-04-19 07:58] LABS: Alanine Aminotransferase 97 U/L (0-40); Albumin Level 3.3 g/dL (3.5-5.0); Alkaline Phosphatase 122 U/L (39-117); Anion Gap 17 (12-20); Aspartate Amino Transferase 38 U/L (5-37); Bilirubin Total 0.3 mg/dL (0.0-1.0); Blood Urea Nitrogen 10 mg/dL (9-16); Calcium 9.2 mg/dL (8.4-10.2); Carbon Dioxide 24 mmol/L (22-29); Chloride 104 mmol/L (96-108); Creatinine Clr Calc Pharmacy 67.5; Estimated Glomerular Filt Rate 59; Glucose Random 122 mg/dL (60-115); Potassium 3.8 mmol/L (3.3-5.1); Sodium 141 mmol/L (135-145); Total Protein 6.1 g/dL (6.5-8.0)
[2023-04-19 08:04] LABS: Ammonia 43 umol/L (13-55)
[2023-04-19 08:30] VITALS: BP 129/82; PULSE 94; RESP 18; TEMP 36.6; O2SAT 94
[2023-04-19] MEDS: Lidocaine 4 % Patch ADH..PATCH 1 PATCH TRANSDERMA (08:31)
[2023-04-19] MEDS: Metoprolol Succinate ER 25 MG TAB.ER.24H PO (08:34)
[2023-04-19] MEDS: busPIRone HCl 5 MG TABLET 15 MG PO ×3 (08:34→22:07)
[2023-04-19] MEDS: chlorproMAZINE HCl 100 MG TABLET PO ×3 (08:34→22:07)
[2023-04-19] MEDS: Multivitamin TABLET 1 TAB PO (08:34)
[2023-04-19] MEDS: Gabapentin 300 MG CAPSULE PO ×3 (08:34→22:07)
[2023-04-19] MEDS: Omeprazole 20 MG CAPSULE.DR PO (08:34)
[2023-04-19] MEDS: buPROPion HCl XL 150 MG TAB.ER.24H PO (08:34)
[2023-04-19] MEDS: Folic Acid 1 MG TABLET PO (08:34)
[2023-04-19] MEDS: Cyanocobalamin (Vitamin B-12) 500 MCG TABLET PO (08:34)
[2023-04-19] MEDS: Thiamine HCL 100 MG TABLET PO (08:35)
[2023-04-19] MEDS: Nicotine 21 MG PATCH.TD24 TRANSDERMA (08:35)
[2023-04-19] MEDS: hydrOXYzine HCL 50 MG TABLET PO ×3 (08:40→22:07)
[2023-04-19] MEDS: diazePAM 2 MG TABLET 3 MG PO ×3 (11:50→19:37)
--- NOTE | 2023-04-19 16:50 | P.PNPSI_ITS ---
Subjective Subjective Date of Service: 04/19/23 Reason For Visit: Depression Subjective Notes: Conditional Voluntary Healthcare Proxy: No Guardianship: No Medical Problems Affecting Mental Status: No Interim History: Pt reviewed with team, records and reports were reviewed. Pt with significant a.m. confusion, asking who took his meds he brought in from home, especially xanax which he was asking for. Review of diagnostics, anemia is improving, ferrous sulfate initiated, LFT's are increasing, Ammonia 43. Will once again decrease Valium, decrease Chlorpromazine and Oxycontin. Hepatitis panel ordered. Medication Compliance: Yes Side effects from medications: No Attending Groups: Intermittent Review of Systems Acute medical concerns: No Medical Review of Systems: unchanged Mental Status Exam Mental Status Exam Patient Appearance: Fatigued Patient Orientation: Person, Place, Time and Situation Level of Consciousness: Awake and Sedated Patient Behavior: Talkative, Sedated, Resistive to Care and Good Eye Contact Mood Description: Withdrawn, Depressed, Hostile, Anxious and Apprehensive Affect Description: Flat Patient Cognition Impaired: No Ability to Follow Directions: Good Speech Pattern: Perseverating, Spontaneous Speech and Soft-Spoken Memory Description: Episodic Impaired Thought Process: Rumination and Confusion Thought Content: positive for [place], positive for Circumstantial, positive for Perseveration and positive for Poverty of Content Depressive Symptoms: Increased Irritability, Difficulty Sleeping and Low Self Esteem Abnormal Motor Activity Signs and Symptoms: Restlessness Judgement: Fair Diagnostics Vital Signs (24Hr): Vital Signs - 24 hr 04/18/23 20:15 04/19/23 08:30 Temperature 97.6 F 97.8 F Pulse Rate 94 94 Respiratory Rate 18 Blood Pressure 112/74 129/82 Pulse Oximetry 94 Oxygen Delivery Method Room Air BMI result Body Mass Index 25.3 Labs 04/19/23 07:34 04/19/23 07:34 Labs: Laboratory Results - last 48 hr 04/19/23 04/19/23 04/19/23 07:34 07:34 07:34 WBC 7.2 RBC 3.23 L Hgb 10.3 L Hct 30.4 L MCV 94.1 MCH 31.9 MCHC 33.9 RDW 11.9 Plt Count 188 MPV 9.2 L Immature Gran % (Auto) 0.4 Neut % (Auto) 66.1 Lymph % (Auto) 17.9 L [place] % (Auto) 10.3 Eos % (Auto) 4.5 H Baso % (Auto) 0.8 Lymph # (Auto) 1.3 [place] # (Auto) 0.7 Eos # (Auto) 0.3 Baso # (Auto) 0.1 Abs Immat Gran (auto) 0.03 Absolute Neuts (auto) 4.8 Absolute Nucleated RBC 0.000 Nucleated RBC % (auto) 0.0 Sodium 141 Potassium 3.8 Chloride 104 Carbon Dioxide 24 Anion Gap 17 BUN 10 Creatinine 1.26 Estim Creat Clear Calc 67.5 Estimated GFR 59 Random Glucose 122 H Calcium 9.2 D Total Bilirubin 0.3 AST 38 H ALT 97 H Alkaline Phosphatase 122 H Ammonia 43 Total Protein 6.1 L Albumin 3.3 L Imaging Radiology Impressions: ITS Impressions Head CT 04/14/23 11:29 IMPRESSION: No acute intracranial abnormality including hemorrhage, mass effect, hydrocephalus, or acute territorial edematous infarction. Medications Medications Current Medications Acetaminophen (Acetaminophen 325 Mg Tablet) 650 mg PO Q6H PRN PRN Reason: Headache/Pain Mild Scale (1-3) Last Admin: 04/19/23 09:49 Dose: 650 mg Al Hydroxide/Mg Hydroxide (Magnesium Hydrox/Alum Hydrox 30 Ml Oral.Susp) 30 ml PO Q6H PRN PRN Reason: Heartburn/Nausea Albuterol Sulfate (Albuterol Sulfate 90 Mcg 8 Gm Inhaler) 2 puff INHALE Q4H PRN PRN Reason: wheeze Amlodipine Besylate (Amlodipine Besylate 5 Mg Tablet) 5 mg PO DAILY [facility]; Protocol Last Admin: 04/14/23 09:20 Dose: 5 mg Benztropine Mesylate (Benztropine Mesylate 1 Mg Tablet) 1 mg PO BID PRN PRN Reason: Extrapyramidal Effects/Symptoms Bupropion HCl (Bupropion Hcl Xl 150 Mg Tab.Er.24h) 150 mg PO DAILY [facility] Last Admin: 04/19/23 08:34 Dose: 150 mg Buspirone HCl (Buspirone Hcl 5 Mg Tablet) 15 mg PO TID [facility] Last Admin: 04/19/23 14:23 Dose: 15 mg Chlorpromazine HCl (Chlorpromazine Hcl 100 Mg Tablet) 100 mg PO TID [facility] Last Admin: 04/19/23 14:23 Dose: 100 mg Chlorpromazine HCl (Chlorpromazine Hcl 100 Mg Tablet) 200 mg PO BEDTIME PRN PRN Reason: psychosis,sleep Cyanocobalamin (Cyanocobalamin (Vitamin B-12) 500 Mcg Tablet) 500 mcg PO DAILY [facility] Last Admin: 04/19/23 08:34 Dose: 500 mcg Diazepam (Diazepam 2 Mg Tablet) 3 mg PO TID PRN PRN Reason: Anxiety Last Admin: 04/19/23 11:50 Dose: 3 mg Ferrous Sulfate (Ferrous Sulfate 324 Mg Tablet.) 325 mg PO DAILY [facility] Folic Acid (Folic Acid 1 Mg Tablet) 1 mg PO DAILY [facility] Last Admin: 04/19/23 08:34 Dose: 1 mg Gabapentin (Gabapentin 300 Mg Capsule) 300 mg PO TID [facility] Last Admin: 04/19/23 14:23 Dose: 300 mg Hydroxyzine HCl (Hydroxyzine Hcl 50 Mg Tablet) 50 mg PO Q6H PRN PRN Reason: Anxiety Last Admin: 04/19/23 16:09 Dose: 50 mg Levothyroxine Sodium (Levothyroxine Sodium 25 Mcg Tablet) 25 mcg PO DAILY@0700 [facility] Last Admin: 04/19/23 06:32 Dose: 25 mcg Lidocaine (Lidocaine 4 % Patch Adh..Patch) 1 patch TRANSDERMA DAILY [facility]; Protocol Last Admin: 04/19/23 08:31 Dose: 1 patch Magnesium Hydroxide (Milk Of Magnesia 30 Ml Oral.Susp) 30 ml PO DAILY PRN PRN Reason: Constipation Melatonin (Melatonin 3 Mg Tablet) 9 mg PO DAILY PRN PRN Reason: Insomnia Last Admin: 04/19/23 03:22 Dose: 9 mg Metoprolol Succinate (Metoprolol Succinate Er 25 Mg Tab.Er.24h) 25 mg PO DAILY [facility]; Protocol Last Admin: 04/19/23 08:34 Dose: 25 mg Multivitamins/Vitamin C (Multivitamin Tablet) 1 tab PO DAILY [facility] Last Admin: 04/19/23 08:34 Dose: 1 tab Nicotine (Nicotine 21 Mg Patch.Td24) 21 mg TRANSDERMA DAILY [facility] Last Admin: 04/19/23 08:35 Dose: 21 mg Nicotine Polacrilex (Nicotine Polacrilex 2 Mg Gum) 4 mg BUCCAL Q2H PRN PRN Reason: Nicotine Cravings Last Admin: 04/18/23 15:15 Dose: 4 mg Omeprazole (Omeprazole 20 Mg Capsule.) 20 mg PO DAILY [facility] Last Admin: 04/19/23 08:34 Dose: 20 mg Oxycodone HCl (Oxycodone Hcl Immed Release 5 Mg Tablet) 5 mg PO Q8H PRN PRN Reason: SEVERE PAIN Last Admin: 04/19/23 14:23 Dose: 5 mg Prazosin HCl (Prazosin Hcl 1 Mg Capsule) 2 mg PO BEDTIME [facility]; Protocol Last Admin: 04/18/23 20:53 Dose: Not Given Thiamine HCl (Thiamine Hcl 100 Mg Tablet) 100 mg PO DAILY [facility] Last Admin: 04/19/23 08:35 Dose: 100 mg Allergies Allergies Allergy/AdvReac Type Severity Reaction Status Date / Time aspirin [ASA] Allergy Unknown FACIAL Verified 04/14/23 09:16 SWELLING Penicillins [PENICILLINS] Allergy Unknown HIVES Verified 04/14/23 09:16 trazodone Allergy Anaphylaxis Verified 04/14/23 09:16 tramadol [TRAMADOL] AdvReac Unknown NAUSEA & Verified 04/14/23 09:16 VOMITING Assessment & Plan Assessment & Plan (1) Alcohol withdrawal: Status: Acute Code(s): F10.939 - Alcohol use, unspecified with withdrawal, unspecified (2) Polysubstance use disorder: Status: Acute Code(s): F19.90 - Other psychoactive substance use, unspecified, uncomplicated (3) Schizoaffective disorder: Status: Acute Code(s): F25.9 - Schizoaffective disorder, unspecified Plan Pt is a 57-year-old male with a PMH significant for?HTN, GERD, alcohol use disorder, chronic back and right shoulder pain on chronic opioids, depression, and anxiety who is admitted to [facility] psychiatry unit for increasing depression and anxiety and feeling overwhelmed. Patient also endorses auditory and visual collado llucinations. Medical consult for admission H&P. Mood disorder Plan as per psychiatry Chest pain Initial presenting complaint at [facility] ED Had negative cardiac workup at [facility]: negative troponins, EKG Likely secondary to anxiety Chronic shoulder and back pain Continue home analgesics Patient should follow up outpatient with PCP for PT and/or MRI Right ankle fracture Patient should follow up outpatient with PCP and/or orthopedics Dental caries/tooth pain Patient should follow up outpatient with dentist HTN Continue lisinopril, amlodipine, metoprolol Peripheral neuropathy Continue gabapentin GERD Continue pantoprazole Subclinical hypothyroidism TSH elevated at 7.43, T4 WNL and 0.92 Repeat TCH in 6 weeks Follow-up outpatient with PCP Hyperlipidemia Patient's triglycerides 460, cholesterol 318 Patient no longer on statin Should follow up outpatient with PCP Lack of PCP A primary portions is that patient needs to establish care with a PCP in order to have his chronic medical conditions properly addressed Thank you for allowing us to participate in the care of this patient. Signing off at this time. Please let us know if there are any acute complaints or questions. 04/11: Continue current regimen and plans and increased q.h.s. Thorazine to 300 mg. He denies any side effects. Issues of orthostasis discussed 04/12: Continue current regimen and plans. Increase gabapentin to 300 mg t.i.d.. 04/13 Issues with vertigo, dizziness, balance and voice is weak, ?Overmedicated. Pt asking for Xanax. Irritable, some confusion. Lowered BP Gabapentin 300 mg tid Decrease Chlorpromazine to 100 mg tid and 300 mg HS Decrease Wellbutrin XL to 150 mg a.m. Decrease Amlodipine to 5 mg daily Decrease Metoprolol to 25 mg daily 04/14 continue tx. held amlodipine due to low BP. 04/15 trial of diazepam 5 mg bid to assess efficacy of anxiety mgt. 04/16 dc diazepam diazepam [address] Thornton will consult with pt to review options ? Roberta's sx. 04/17 Presents with increase in sedation, reports fall. Decrease Diazepam to 5 mg tid prn 04/18/23 CBCD, CMP, Ammonia level 04/19/23 Decrease Valium to 3 mg tid Decrease HS Chlorpromazine to 200 mg hs Decrease Oxycontin to ` 8 hours prn Ferrous sulfate 325 mg daily Pt reports he is unable to sleep. He is sleeping during the day when observed Hepatitis panel Informed Consent: does not understand Reason for continued inpatient stay Substantial Risk for: med/psych decompensation Time Spent With Patient Time: Total time managing care of this patient today ____ minutes.
[2023-04-19 19:40] VITALS: BP 99/52; PULSE 100; RESP 18; TEMP 37; O2SAT 99
[2023-04-19] MEDS: Prazosin HCL 1 MG CAPSULE 2 MG PO (22:07)
[2023-04-20] MEDS: Levothyroxine Sodium 25 MCG TABLET PO (06:00)
[2023-04-20] MEDS: hydrOXYzine HCL 50 MG TABLET PO ×2 (06:40→20:14)
[2023-04-20] MEDS: oxyCODONE HCl Immed Release 5 MG TABLET PO (06:40)
[2023-04-20] MEDS: Acetaminophen 325 MG TABLET 650 MG PO ×2 (06:40→20:13)
[2023-04-20] MEDS: Nicotine Polacrilex 2 MG GUM 4 MG BUCCAL (06:41)
--- NOTE | 2023-04-20 09:13 | P.PNPSI_ITS ---
Subjective Subjective Date of Service: 04/20/23 Reason For Visit: Depression Subjective Notes: Guerrero Warning, Conditional Voluntary and 3 Day Interim History: The patient is anxious dysphoric agitated about not getting alprazolam 4 mg daily which apparently he had been given about a year previously. Patient recently been a dual diagnosis unit treated with Thorazine gabapentin went to a sober house of felt unsafe in left. Patient reports patient reports auditory hallucinations denies active self-harm but desperate to feel better and less anxious he does have a 3 day notice Reportedly patient had been overmedicated been somewhat wobbly. He is a somewhat poor historian but focused on the fact of the of his mother Medication Compliance: Intermittent Mental Status Exam Mental Status Exam Patient Appearance: Fatigued and Disheveled Patient Orientation: Person, Place, Time and Situation Level of Consciousness: Awake Patient Behavior: Talkative, Anxious, Resistive to Care and Good Eye Contact Mood Description: Withdrawn, Depressed, Hostile, Anxious and Apprehensive Affect Description: Flat Patient Cognition Impaired: No Ability to Follow Directions: Good Speech Pattern: Perseverating, Spontaneous Speech and Soft-Spoken Memory Description: Episodic Impaired Thought Process: Rumination and Confusion Thought Content: positive for [place], positive for Circumstantial, positive for Perseveration and positive for Poverty of Content Depressive Symptoms: Increased Irritability, Difficulty Sleeping, Thoughts of /Suicide and Low Self Esteem Abnormal Motor Activity Signs and Symptoms: Restlessness Judgement: Fair Diagnostics Vital Signs (24Hr): Vital Signs - 24 hr 04/19/23 19:40 Temperature 98.6 F Pulse Rate 100 Respiratory Rate 18 Blood Pressure 99/52 L Pulse Oximetry 99 Oxygen Delivery Method Room Air BMI result Body Mass Index 25.3 Labs 04/19/23 07:34 04/19/23 07:34 Labs: Laboratory Results - last 48 hr 04/19/23 04/19/23 04/19/23 07:34 07:34 07:34 WBC 7.2 RBC 3.23 L Hgb 10.3 L Hct 30.4 L MCV 94.1 MCH 31.9 MCHC 33.9 RDW 11.9 Plt Count 188 MPV 9.2 L Immature Gran % (Auto) 0.4 Neut % (Auto) 66.1 Lymph % (Auto) 17.9 L [place] % (Auto) 10.3 Eos % (Auto) 4.5 H Baso % (Auto) 0.8 Lymph # (Auto) 1.3 [place] # (Auto) 0.7 Eos # (Auto) 0.3 Baso # (Auto) 0.1 Abs Immat Gran (auto) 0.03 Absolute Neuts (auto) 4.8 Absolute Nucleated RBC 0.000 Nucleated RBC % (auto) 0.0 Sodium 141 Potassium 3.8 Chloride 104 Carbon Dioxide 24 Anion Gap 17 BUN 10 Creatinine 1.26 Estim Creat Clear Calc 67.5 Estimated GFR 59 Random Glucose 122 H Calcium 9.2 D Total Bilirubin 0.3 AST 38 H ALT 97 H Alkaline Phosphatase 122 H Ammonia 43 Total Protein 6.1 L Albumin 3.3 L Imaging Radiology Impressions: ITS Impressions Head CT 04/14/23 11:29 IMPRESSION: No acute intracranial abnormality including hemorrhage, mass effect, hydrocephalus, or acute territorial edematous infarction. Medications Medications Current Medications Acetaminophen (Acetaminophen 325 Mg Tablet) 650 mg PO Q6H PRN PRN Reason: Headache/Pain Mild Scale (1-3) Last Admin: 04/20/23 06:40 Dose: 650 mg Al Hydroxide/Mg Hydroxide (Magnesium Hydrox/Alum Hydrox 30 Ml Oral.Susp) 30 ml PO Q6H PRN PRN Reason: Heartburn/Nausea Albuterol Sulfate (Albuterol Sulfate 90 Mcg 8 Gm Inhaler) 2 puff INHALE Q4H PRN PRN Reason: wheeze Amlodipine Besylate (Amlodipine Besylate 5 Mg Tablet) 5 mg PO DAILY [facility]; Protocol Last Admin: 04/14/23 09:20 Dose: 5 mg Benztropine Mesylate (Benztropine Mesylate 1 Mg Tablet) 1 mg PO BID PRN PRN Reason: Extrapyramidal Effects/Symptoms Bupropion HCl (Bupropion Hcl Xl 150 Mg Tab.Er.24h) 150 mg PO DAILY [facility] Last Admin: 04/19/23 08:34 Dose: 150 mg Buspirone HCl (Buspirone Hcl 5 Mg Tablet) 15 mg PO TID [facility] Last Admin: 04/19/23 22:07 Dose: 15 mg Chlorpromazine HCl (Chlorpromazine Hcl 100 Mg Tablet) 100 mg PO TID [facility] Last Admin: 04/19/23 22:07 Dose: 100 mg Chlorpromazine HCl (Chlorpromazine Hcl 100 Mg Tablet) 200 mg PO BEDTIME PRN PRN Reason: psychosis,sleep Cyanocobalamin (Cyanocobalamin (Vitamin B-12) 500 Mcg Tablet) 500 mcg PO DAILY [facility] Last Admin: 04/19/23 08:34 Dose: 500 mcg Diazepam (Diazepam 2 Mg Tablet) 3 mg PO TID PRN PRN Reason: Anxiety Last Admin: 04/19/23 19:37 Dose: 3 mg Ferrous Sulfate (Ferrous Sulfate 324 Mg Tablet.) 325 mg PO DAILY [facility] Folic Acid (Folic Acid 1 Mg Tablet) 1 mg PO DAILY [facility] Last Admin: 04/19/23 08:34 Dose: 1 mg Gabapentin (Gabapentin 300 Mg Capsule) 300 mg PO TID [facility] Last Admin: 04/19/23 22:07 Dose: 300 mg Hydroxyzine HCl (Hydroxyzine Hcl 50 Mg Tablet) 50 mg PO Q6H PRN PRN Reason: Anxiety Last Admin: 04/20/23 06:40 Dose: 50 mg Levothyroxine Sodium (Levothyroxine Sodium 25 Mcg Tablet) 25 mcg PO DAILY@0700 [facility] Last Admin: 04/20/23 06:00 Dose: 25 mcg Lidocaine (Lidocaine 4 % Patch Adh..Patch) 1 patch TRANSDERMA DAILY [facility]; Protocol Last Admin: 04/19/23 08:31 Dose: 1 patch Magnesium Hydroxide (Milk Of Magnesia 30 Ml Oral.Susp) 30 ml PO DAILY PRN PRN Reason: Constipation Melatonin (Melatonin 3 Mg Tablet) 9 mg PO DAILY PRN PRN Reason: Insomnia Last Admin: 04/19/23 22:06 Dose: 9 mg Metoprolol Succinate (Metoprolol Succinate Er 25 Mg Tab.Er.24h) 25 mg PO DAILY [facility]; Protocol Last Admin: 04/19/23 08:34 Dose: 25 mg Multivitamins/Vitamin C (Multivitamin Tablet) 1 tab PO DAILY [facility] Last Admin: 04/19/23 08:34 Dose: 1 tab Nicotine (Nicotine 21 Mg Patch.Td24) 21 mg TRANSDERMA DAILY [facility] Last Admin: 04/19/23 08:35 Dose: 21 mg Nicotine Polacrilex (Nicotine Polacrilex 2 Mg Gum) 4 mg BUCCAL Q2H PRN PRN Reason: Nicotine Cravings Last Admin: 04/20/23 06:41 Dose: 4 mg Omeprazole (Omeprazole 20 Mg Capsule.) 20 mg PO DAILY [facility] Last Admin: 04/19/23 08:34 Dose: 20 mg Oxycodone HCl (Oxycodone Hcl Immed Release 5 Mg Tablet) 5 mg PO Q8H PRN PRN Reason: SEVERE PAIN Last Admin: 04/20/23 06:40 Dose: 5 mg Prazosin HCl (Prazosin Hcl 1 Mg Capsule) 2 mg PO BEDTIME [facility]; Protocol Last Admin: 04/19/23 22:07 Dose: 2 mg Thiamine HCl (Thiamine Hcl 100 Mg Tablet) 100 mg PO DAILY [facility] Last Admin: 04/19/23 08:35 Dose: 100 mg Allergies Allergies Allergy/AdvReac Type Severity Reaction Status Date / Time aspirin [ASA] Allergy Unknown FACIAL Verified 04/14/23 09:16 SWELLING Penicillins [PENICILLINS] Allergy Unknown HIVES Verified 04/14/23 09:16 trazodone Allergy Anaphylaxis Verified 04/14/23 09:16 tramadol [TRAMADOL] AdvReac Unknown NAUSEA & Verified 04/14/23 09:16 VOMITING Assessment & Plan Assessment & Plan (1) Alcohol withdrawal: Status: Acute Code(s): F10.939 - Alcohol use, unspecified with withdrawal, unspecified (2) Polysubstance use disorder: Status: Acute Code(s): F19.90 - Other psychoactive substance use, unspecified, uncomplicated (3) Schizoaffective disorder: Status: Acute Code(s): F25.9 - Schizoaffective disorder, unspecified Plan Pt is a 57-year-old male with a PMH significant for?HTN, GERD, alcohol use disorder, chronic back and right shoulder pain on chronic opioids, depression, and anxiety who is admitted to [facility] psychiatry unit for increasing depression and anxiety and feeling overwhelmed. Patient also endorses auditory and visual hallucinations. Medical consult for admission H&P. Mood disorder Plan as per psychiatry Chest pain Initial presenting complaint at [facility] ED Had negative cardiac workup at [facility]: negative troponins, EKG Likely secondary to anxiety Chronic shoulder and back pain Continue home analgesics Patient should follow up outpatient with PCP for PT and/or MRI Right ankle fracture Patient should follow up outpatient with PCP and/or orthopedics Dental caries/tooth pain Patient should follow up outpatient with dentist HTN Continue lisinopril, amlodipine, metoprolol Peripheral neuropathy Continue gabapentin GERD Continue pantoprazole Subclinical hypothyroidism TSH elevated at 7.43, T4 WNL and 0.92 Repeat TCH in 6 weeks Follow-up outpatient with PCP Hyperlipidemia Patient's triglycerides 460, cholesterol 318 Patient no longer on statin Should follow up outpatient with PCP Lack of PCP A primary portions is that patient needs to establish care with a PCP in order to have his chronic medical conditions properly addressed Thank you for allowing us to participate in the care of this patient. Signing off at this time. Please let us know if there are any acute complaints or questions. 04/11: Continue current regimen and plans and increased q.h.s. Thorazine to 300 mg. He denies any side effects. Issues of orthostasis discussed 04/12: Continue current regimen and plans. Increase gabapentin to 300 mg t.i.d.. 04/13 Issues with vertigo, dizziness, balance and voice is weak, ?Overmedicated. Pt asking for Xanax. Irritable, some confusion. Lowered BP Gabapentin 300 mg tid Decrease Chlorpromazine to 100 mg tid and 300 mg HS Decrease Wellbutrin XL to 150 mg a.m. Decrease Amlodipine to 5 mg daily Decrease Metoprolol to 25 mg daily 04/14 continue tx. held amlodipine due to low BP. 04/15 trial of diazepam 5 mg bid to assess efficacy of anxiety mgt. 04/16 dc diazepam diazepam [address] Thornton will consult with pt to review options ? Faizane's sx. 04/17 Presents with increase in sedation, reports fall. Decrease Diazepam to 5 mg tid prn 04/18/23 CBCD, CMP, Ammonia level 04/19/23 Decrease Valium to 3 mg tid Decrease HS Chlorpromazine to 200 mg hs Decrease Oxycontin to ` 8 hours prn Ferrous sulfate 325 mg daily Pt reports he is unable to sleep. He is sleeping during the day when observed Hepatitis panel 04/20/23 Pt seen on 3 day notice mood depressed anxious limited insight c/o aud rodriguez limited fx Patient educated on: diagnosis, medication risk/benefits and medical condition Informed Consent: further education needed Reason for continued inpatient stay Substantial Risk for: harm to self and rapid decompensation Time Spent With Patient Time: Total time managing care of this patient today ____ minutes.
[2023-04-20 09:49] LABS: HBS Num1 39.82 mIU/mL (0-7.99); HBc Num1 0.08 S/CO (0.00-0.79); HBsAGNum1 0.42 S/CO (0.00-0.99); Hepatitis A Antibody IgM 0.16 Index (0-0.79); Hepatitis B Core Antibody Nonreactive (Nonreactive); Hepatitis B Surface Antigen Negative (Negative); ~HepC Num1 0.08 S/CO (0.00-0.79); ~Hepatitis A Antibody IgM Nonreactive (Nonreactive); ~Hepatitis B Surface Antibody REACTIVE (Nonreactive); ~Hepatitis C Antibody Nonreactive (Nonreactive)
[2023-04-20 10:50] VITALS: BP 103/67; PULSE 92; RESP 18; TEMP 36.3; O2SAT 96
[2023-04-20] MEDS: Omeprazole 20 MG CAPSULE.DR PO (10:55)
[2023-04-20] MEDS: Gabapentin 300 MG CAPSULE PO ×3 (10:55→20:15)
[2023-04-20] MEDS: Metoprolol Succinate ER 25 MG TAB.ER.24H PO (10:55)
[2023-04-20] MEDS: Folic Acid 1 MG TABLET PO (10:55)
[2023-04-20] MEDS: Ferrous Sulfate 324 MG TABLET.DR 325 MG PO (10:55)
[2023-04-20] MEDS: Cyanocobalamin (Vitamin B-12) 500 MCG TABLET PO (10:55)
[2023-04-20] MEDS: buPROPion HCl XL 150 MG TAB.ER.24H PO (10:55)
[2023-04-20] MEDS: Thiamine HCL 100 MG TABLET PO (10:55)
[2023-04-20] MEDS: Multivitamin TABLET 1 TAB PO (10:56)
[2023-04-20] MEDS: chlorproMAZINE HCl 100 MG TABLET PO ×3 (10:56→20:15)
[2023-04-20] MEDS: Nicotine 21 MG PATCH.TD24 TRANSDERMA (10:57)
[2023-04-20] MEDS: diazePAM 2 MG TABLET 3 MG PO ×2 (11:03→20:17)
[2023-04-20] MEDS: busPIRone HCl 5 MG TABLET 15 MG PO ×3 (11:04→20:14)
[2023-04-20] MEDS: oxyCODONE HCl Immed Release 5 MG TABLET 2.5 MG PO ×2 (15:01→23:45)
[2023-04-20 18:33] VITALS: BP 100/66; PULSE 95
[2023-04-20 18:35] VITALS: BP 72/52; BP 98/65; PULSE 107; PULSE 98
[2023-04-20] MEDS: Lidocaine 4 % Patch ADH..PATCH 1 PATCH TRANSDERMA (18:48)
[2023-04-20] MEDS: chlorproMAZINE HCl 100 MG TABLET 200 MG PO (20:14)
[2023-04-20] MEDS: Prazosin HCL 1 MG CAPSULE 2 MG PO (20:15)
[2023-04-20] MEDS: Melatonin 3 MG TABLET 9 MG PO (23:45)
[2023-04-21] VITALS (12 sets, daily range): BP systolic 75–114; BP diastolic 51–84; PULSE 90–115; RESP 18; TEMP 36.6–36.8; O2SAT 94–95
[2023-04-21] MEDS: Levothyroxine Sodium 25 MCG TABLET PO (06:21)
[2023-04-21] MEDS: Acetaminophen 325 MG TABLET 650 MG PO ×2 (06:21→20:40)
[2023-04-21] MEDS: hydrOXYzine HCL 50 MG TABLET PO ×2 (06:22→20:35)
[2023-04-21] MEDS: Gabapentin 300 MG CAPSULE PO ×3 (09:38→20:38)
[2023-04-21] MEDS: Thiamine HCL 100 MG TABLET PO (09:38)
[2023-04-21] MEDS: busPIRone HCl 5 MG TABLET 15 MG PO ×3 (09:38→20:36)
[2023-04-21] MEDS: Multivitamin TABLET 1 TAB PO (09:40)
[2023-04-21] MEDS: chlorproMAZINE HCl 100 MG TABLET PO ×3 (09:41→20:38)
[2023-04-21] MEDS: Folic Acid 1 MG TABLET PO (09:41)
[2023-04-21] MEDS: Ferrous Sulfate 324 MG TABLET.DR 325 MG PO (09:41)
[2023-04-21] MEDS: buPROPion HCl XL 150 MG TAB.ER.24H PO (09:41)
[2023-04-21] MEDS: Omeprazole 20 MG CAPSULE.DR PO (09:41)
[2023-04-21] MEDS: Cyanocobalamin (Vitamin B-12) 500 MCG TABLET PO (09:41)
[2023-04-21] MEDS: oxyCODONE HCl Immed Release 5 MG TABLET 2.5 MG PO ×2 (10:07→19:14)
[2023-04-21] MEDS: Nicotine 21 MG PATCH.TD24 TRANSDERMA (10:20)
[2023-04-21] MEDS: Lidocaine 4 % Patch ADH..PATCH 1 PATCH TRANSDERMA (10:21)
[2023-04-21] MEDS: diazePAM 2 MG TABLET PO ×2 (13:17→21:41)
--- NOTE | 2023-04-21 16:53 | P.PNPSI_ITS ---
Subjective Subjective Date of Service: 04/21/23 Reason For Visit: Depression Subjective Notes: 3 Day Healthcare Proxy: No Guardianship: No Medical Problems Affecting Mental Status: No Interim History: Three day notice to 04/22. Pt plans to return to previous living situation. Has accepted referrals for out patient care Reports no PCP is assigned. Aware that [facility] Medication Compliance: Yes Side effects from medications: No Attending Groups: No Review of Systems Acute medical concerns: No Medical Review of Systems: unchanged Mental Status Exam Mental Status Exam Patient Appearance: Disheveled Patient Orientation: Person, Place, Time and Situation Level of Consciousness: Awake Patient Behavior: Talkative, Anxious, Resistive to Care and Good Eye Contact Mood Description: Withdrawn, Depressed, Hostile, Anxious and Apprehensive Affect Description: Flat Patient Cognition Impaired: No Ability to Follow Directions: Good Speech Pattern: Perseverating, Spontaneous Speech and Soft-Spoken Memory Description: Episodic Impaired Thought Process: Rumination and Confusion Thought Content: positive for [place], positive for Circumstantial, positive for Perseveration and positive for Poverty of Content Depressive Symptoms: Increased Irritability, Difficulty Sleeping and Low Self Esteem Abnormal Motor Activity Signs and Symptoms: Restlessness Judgement: Good Diagnostics Vital Signs (24Hr): Vital Signs - 24 hr 04/20/23 18:33 04/20/23 18:35 04/20/23 18:35 Temperature Pulse Rate 95 98 107 H Blood Pressure 100/66 98/65 72/52 L Pulse Oximetry Oxygen Delivery Method 04/21/23 00:03 04/21/23 00:00 04/21/23 00:11 Temperature Pulse Rate 90 90 96 Blood Pressure 113/84 113/84 103/57 L Pulse Oximetry Oxygen Delivery Method 04/21/23 00:12 04/21/23 11:52 04/21/23 09:40 Temperature 97.8 F Pulse Rate 101 H Blood Pressure 80/52 L 100/57 L 100/57 L Pulse Oximetry 94 Oxygen Delivery Method Room Air 04/21/23 09:41 04/21/23 09:42 Temperature Pulse Rate 97 104 H Blood Pressure 105/74 77/52 L Pulse Oximetry Oxygen Delivery Method BMI result Body Mass Index 25.3 Labs 04/19/23 07:34 04/19/23 07:34 Labs: Laboratory Results - last 48 hr 04/20/23 08:53 Hepatitis A IgM Ab Nonreactive Hep Bs Antigen Negative Hep Bs Antibody REACTIVE Hep B Core Total Ab Nonreactive Hepatitis C Ab (EIA) Nonreactive Imaging Radiology Impressions: ITS Impressions Head CT 04/14/23 11:29 IMPRESSION: No acute intracranial abnormality including hemorrhage, mass effect, hydrocephalus, or acute territorial edematous infarction. Medications Medications Current Medications Acetaminophen (Acetaminophen 325 Mg Tablet) 650 mg PO Q6H PRN PRN Reason: Headache/Pain Mild Scale (1-3) Last Admin: 04/21/23 06:21 Dose: 650 mg Al Hydroxide/Mg Hydroxide (Magnesium Hydrox/Alum Hydrox 30 Ml Oral.Susp) 30 ml PO Q6H PRN PRN Reason: Heartburn/Nausea Albuterol Sulfate (Albuterol Sulfate 90 Mcg 8 Gm Inhaler) 2 puff INHALE Q4H PRN PRN Reason: wheeze Amlodipine Besylate (Amlodipine Besylate 5 Mg Tablet) 5 mg PO DAILY [facility]; [place] [facility] Last Admin: 04/14/23 09:20 Dose: 5 mg Benztropine Mesylate (Benztropine Mesylate 1 Mg Tablet) 1 mg PO BID PRN PRN Reason: Extrapyramidal Effects/Symptoms Bupropion HCl (Bupropion Hcl Xl 150 Mg Tab.Er.24h) 150 mg PO DAILY [facility] Last Admin: 04/21/23 09:41 Dose: 150 mg Buspirone HCl (Buspirone Hcl 5 Mg Tablet) 15 mg PO TID [facility] Last Admin: 04/21/23 16:09 Dose: 15 mg Chlorpromazine HCl (Chlorpromazine Hcl 100 Mg Tablet) 100 mg PO TID [facility] Last Admin: 04/21/23 16:10 Dose: 100 mg Chlorpromazine HCl (Chlorpromazine Hcl 100 Mg Tablet) 200 mg PO BEDTIME PRN PRN Reason: psychosis,sleep Last Admin: 04/20/23 20:14 Dose: 200 mg Cyanocobalamin (Cyanocobalamin (Vitamin B-12) 500 Mcg Tablet) 500 mcg PO DAILY [facility] Last Admin: 04/21/23 09:41 Dose: 500 mcg Diazepam (Diazepam 2 Mg Tablet) 2 mg PO TID PRN PRN Reason: Anxiety Last Admin: 04/21/23 13:17 Dose: 2 mg Ferrous Sulfate (Ferrous Sulfate 324 Mg Tablet.Dr) 324 mg PO DAILY [facility] Folic Acid (Folic Acid 1 Mg Tablet) 1 mg PO DAILY [facility] Last Admin: 04/21/23 09:41 Dose: 1 mg Gabapentin (Gabapentin 300 Mg Capsule) 300 mg PO TID [facility] Last Admin: 04/21/23 16:10 Dose: 300 mg Hydroxyzine HCl (Hydroxyzine Hcl 50 Mg Tablet) 50 mg PO Q6H PRN PRN Reason: Anxiety Last Admin: 04/21/23 06:22 Dose: 50 mg Levothyroxine Sodium (Levothyroxine Sodium 25 Mcg Tablet) 25 mcg PO DAILY@0700 [facility] Last Admin: 04/21/23 06:21 Dose: 25 mcg Lidocaine (Lidocaine 4 % Patch Adh..Patch) 1 patch TRANSDERMA DAILY [facility]; Protocol Last Admin: 04/21/23 10:21 Dose: 1 patch Magnesium Hydroxide (Milk Of Magnesia 30 Ml Oral.Susp) 30 ml PO DAILY PRN PRN Reason: Constipation Melatonin (Melatonin 3 Mg Tablet) 9 mg PO DAILY PRN PRN Reason: Insomnia Last Admin: 04/20/23 23:45 Dose: 9 mg Metoprolol Succinate (Metoprolol Succinate Er 25 Mg Tab.Er.24h) 25 mg PO DAILY [facility]; Protocol Last Admin: 04/21/23 09:41 Dose: Not Given Multivitamins/Vitamin C (Multivitamin Tablet) 1 tab PO DAILY [facility] Last Admin: 04/21/23 09:40 Dose: 1 tab Nicotine (Nicotine 21 Mg Patch.Td24) 21 mg TRANSDERMA DAILY [facility] Last Admin: 04/21/23 10:20 Dose: 21 mg Nicotine Polacrilex (Nicotine Polacrilex 2 Mg Gum) 4 mg BUCCAL Q2H PRN PRN Reason: Nicotine Cravings Last Admin: 04/20/23 06:41 Dose: 4 mg Omeprazole (Omeprazole 20 Mg Capsule.Dr) 20 mg PO DAILY [facility] Last Admin: 04/21/23 09:41 Dose: 20 mg Oxycodone HCl (Oxycodone Hcl Immed Release 5 Mg Tablet) 2.5 mg PO Q8H PRN PRN Reason: SEVERE PAIN Last Admin: 04/21/23 10:07 Dose: 2.5 mg Prazosin HCl (Prazosin Hcl 1 Mg Capsule) 2 mg PO BEDTIME [facility]; Protocol Last Admin: 04/20/23 20:15 Dose: 2 mg Thiamine HCl (Thiamine Hcl 100 Mg Tablet) 100 mg PO DAILY [facility] Last Admin: 04/21/23 09:38 Dose: 100 mg Allergies Allergies Allergy/AdvReac Type Severity Reaction Status Date / Time aspirin [ASA] Allergy Unknown FACIAL Verified 04/14/23 09:16 SWELLING Penicillins [PENICILLINS] Allergy Unknown HIVES Verified 04/14/23 09:16 trazodone Allergy Anaphylaxis Verified 04/14/23 09:16 tramadol [TRAMADOL] AdvReac Unknown NAUSEA & Verified 04/14/23 09:16 VOMITING Assessment & Plan Assessment & Plan (1) Alcohol withdrawal: Status: Acute Code(s): F10.939 - Alcohol use, unspecified with withdrawal, unspecified (2) Polysubstance use disorder: Status: Acute Code(s): F19.90 - Other psychoactive substance use, unspecified, uncomplicated (3) Schizoaffective disorder: Status: Acute Code(s): F25.9 - Schizoaffective disorder, unspecified Plan Pt is a 57-year-old male with a PMH significant for?HTN, GERD, alcohol use disorder, chronic back and right shoulder pain on chronic opioids, depression, and anxiety who is admitted to [facility] psychiatry unit for increasing depression and anxiety and feeling overwhelmed. Patient also endorses auditory and visual hallucinations. Medical consult for admission H&P. Mood disorder Plan as per psychiatry Chest pain Initial presenting complaint at [facility] ED Had negative cardiac workup at [facility]: negative troponins, EKG Likely secondary to anxiety Chronic shoulder and back pain Continue home analgesics Patient should follow up outpatient with PCP for PT and/or MRI Right ankle fracture Patient should follow up outpatient with PCP and/or orthopedics Dental caries/tooth pain Patient should follow up outpatient with dentist HTN Continue lisinopril, amlodipine, metoprolol Peripheral neuropathy Continue gabapentin GERD Continue pantoprazole Subclinical hypothyroidism TSH elevated at 7.43, T4 WNL and 0.92 Repeat TCH in 6 weeks Follow-up outpatient with PCP Hyperlipidemia Patient's triglycerides 460, cholesterol 318 Patient no longer on statin Should follow up outpatient with PCP Lack of PCP A primary portions is that patient needs to establish care with a PCP in order to have his chronic medical conditions properly addressed Thank you for allowing us to participate in the care of this patient. Signing off at this time. Please let us know if there are any acute complaints or questions. 04/11: Continue current regimen and plans and increased q.h.s. Thorazine to 300 mg. He denies any side effects. Issues of orthostasis discussed 04/12: Continue current regimen and plans. Increase gabapentin to 300 mg t.i.d.. 04/13 Issues with vertigo, dizziness, balance and voice is weak, ?Overmedicated. Pt asking for Xanax. Irritable, some confusion. Lowered BP Gabapentin 300 mg tid Decrease Chlorpromazine to 100 mg tid and 300 mg HS Decrease Wellbutrin XL to 150 mg a.m. Decrease Amlodipine to 5 mg daily Decrease Metoprolol to 25 mg daily 04/14 continue tx. held amlodipine due to low BP. 04/15 trial of diazepam 5 mg bid to assess efficacy of anxiety mgt. 04/16 dc diazepam diazepam [address] Thornton will consult with pt to review options ? Wernicke's sx. 04/17 Presents with increase in sedation, reports fall. Decrease Diazepam to 5 mg tid prn 04/18/23 CBCD, CMP, Ammonia level 04/19/23 Decrease Valium to 3 mg tid Decrease HS Chlorpromazine to 200 mg hs Decrease Oxycontin to ` 8 hours prn Ferrous sulfate 325 mg daily Pt reports he is unable to sleep. He is sleeping during the day when observed Hepatitis panel 04/20/23 Pt seen on 3 day notice mood depressed anxious limited insight c/o aud rodriguez limited fx Patient educated on: diagnosis, medication risk/benefits, therapeutic strategies and medical condition Informed Consent: understands Reason for continued inpatient stay Substantial Risk for: rapid decompensation Time Spent With Patient Time: Total time managing care of this patient today ____ minutes.
[2023-04-21] MEDS: Prazosin HCL 1 MG CAPSULE 2 MG PO (20:35)
[2023-04-21] MEDS: Nicotine Polacrilex 2 MG GUM 4 MG BUCCAL (20:57)
[2023-04-21] MEDS: Melatonin 3 MG TABLET 9 MG PO (21:41)
[2023-04-21] MEDS: chlorproMAZINE HCl 100 MG TABLET 200 MG PO (23:40)
[2023-04-22] MEDS: hydrOXYzine HCL 50 MG TABLET PO (04:16)
[2023-04-22] MEDS: diazePAM 2 MG TABLET PO ×2 (04:16→08:08)
[2023-04-22] MEDS: Levothyroxine Sodium 25 MCG TABLET PO (04:17)
[2023-04-22 06:00] VITALS: BP 111/70; PULSE 111; RESP 18; O2SAT 95
[2023-04-22] MEDS: Nicotine 21 MG PATCH.TD24 TRANSDERMA (08:07)
[2023-04-22] MEDS: Gabapentin 300 MG CAPSULE PO (08:08)
[2023-04-22] MEDS: Omeprazole 20 MG CAPSULE.DR PO (08:08)
[2023-04-22] MEDS: chlorproMAZINE HCl 100 MG TABLET PO (08:08)
[2023-04-22] MEDS: Ferrous Sulfate 324 MG TABLET.DR PO (08:08)
[2023-04-22] MEDS: Acetaminophen 325 MG TABLET 650 MG PO (08:08)
[2023-04-22] MEDS: Lidocaine 4 % Patch ADH..PATCH 1 PATCH TRANSDERMA (08:08)
[2023-04-22] MEDS: Cyanocobalamin (Vitamin B-12) 500 MCG TABLET PO (08:09)
[2023-04-22] MEDS: Multivitamin TABLET 1 TAB PO (08:09)
[2023-04-22] MEDS: Folic Acid 1 MG TABLET PO (08:09)
[2023-04-22] MEDS: buPROPion HCl XL 150 MG TAB.ER.24H PO (08:09)
[2023-04-22] MEDS: busPIRone HCl 5 MG TABLET 15 MG PO (08:09)
[2023-04-22] MEDS: Thiamine HCL 100 MG TABLET PO (08:09)
[2023-04-22] MEDS: Metoprolol Succinate ER 25 MG TAB.ER.24H PO (08:09)
[2023-04-22] MEDS: oxyCODONE HCl Immed Release 5 MG TABLET 2.5 MG PO (10:02)
--- NOTE | 2023-04-22 10:36 | PM.PSYDC ---
DS: Providers Provider Date of Service: 04/22/23 Date of admission: 04/09/23 20:15 Date of discharge: 04/22/23 Primary care physician: [facility]-pt will make an appt. Admitting clinician: Jacy Mendoza Attending physician on admission: Girish Thornton Consults: 04/09/23 21:38 Consult to Hospitalist Routine Comment: Consulting Provider: Hospitalist Reason For Exam: OSH admission 04/10/23 12:03 Addiction Medicine Routine Consulting Provider: Addiction Covering Reason for consultation: call or contact centre coach Has provider been notified: No Attending physician on discharge: Girish Thornton Discharging clinician: Jacy Mendoza DS: Diagnosis Discharge Diagnosis (1) Alcohol withdrawal: Status: Acute (2) Polysubstance use disorder: Status: Acute (3) Schizoaffective disorder: Status: Acute DS: Medications Discharge Medications Home Medications: Home Medications Medication Instructions Recorded Confirmed oxycodone-acetaminophen 5 mg-325 1 tab PO Q6H PRN severe pain 04/09/23 04/09/23 mg tablet Previous Rx's Medication Instructions Recorded albuterol sulfate 90 mcg/actuation 2 puff inhalation Q4H PRN wheeze 04/21/23 aerosol inhaler (Ventolin HFA) #1 inhaler benztropine 1 mg tablet 1 mg PO BID PRN Extrapyramidal 04/21/23 Effects/Symptoms #28 tabs bupropion HCl 75 mg tablet 75 mg PO BID #28 tabs 04/21/23 buspirone 15 mg tablet 15 mg PO TID #21 tabs 04/21/23 chlorpromazine 100 mg tablet 100 mg PO TID #21 tabs 04/21/23 chlorpromazine 200 mg tablet 200 mg PO BEDTIME #7 tabs 04/21/23 cyanocobalamin (vitamin B-12) 500 500 mcg PO DAILY #30 tabs 04/21/23 mcg tablet ferrous sulfate 324 mg (65 mg 324 mg PO DAILY #30 tabs 04/21/23 iron) tablet,delayed release folic acid 1 mg tablet 1 mg PO DAILY #30 tabs 04/21/23 gabapentin 100 mg capsule 100 mg PO BID #28 caps 04/21/23 levothyroxine 25 mcg tablet 25 mcg PO DAILY@0700 #30 tabs 04/21/23 melatonin 3 mg tablet 9 mg PO DAILY PRN Insomnia #42 tabs 04/21/23 metoprolol succinate 25 mg 25 mg PO DAILY #14 tabs 04/21/23 tablet,extended release 24 hr multivitamin (Daily-Jamin tablet) 1 tab PO DAILY #30 tabs 04/21/23 naloxone 4 mg/actuation nasal 4 mg intranasal Q2M PRN opioid 04/21/23 spray (Narcan) overdose #2 ea nicotine (polacrilex) 4 mg buccal 4 mg PO QID PRN Nicotine Cravings 04/21/23 lozenge #72 ea nicotine 21 mg/24 hr daily 1 patch topical DAILY #30 ea 04/21/23 transdermal patch pantoprazole 40 mg tablet,delayed 1 tab PO DAILY #30 tabs 04/21/23 release prazosin 2 mg capsule 2 mg PO BEDTIME #14 caps 04/21/23 thiamine mononitrate (vit B1) 100 100 mg PO DAILY #30 tabs 04/21/23 mg tablet Mental Status Exam Mental Status Exam Patient Appearance: Disheveled Patient Orientation: Person, Place, Time and Situation Level of Consciousness: Awake Patient Behavior: Talkative, Anxious, Resistive to Care and Good Eye Contact Mood Description: Withdrawn, Depressed, Hostile, Anxious and Apprehensive Affect Description: Flat Patient Cognition Impaired: No Ability to Follow Directions: Good Speech Pattern: Perseverating, Spontaneous Speech and Soft-Spoken Memory Description: Episodic Impaired Thought Process: Rumination and Confusion Thought Content: positive for [place], positive for Circumstantial, positive for Perseveration and positive for Poverty of Content Depressive Symptoms: Increased Irritability, Difficulty Sleeping and Low Self Esteem Abnormal Motor Activity Signs and Symptoms: Restlessness Judgement: Good Data Data Completed and Pending Completed studies during hospitalization [Text1]: 04/19/23 04/19/23 04/19/23 07:34 07:34 07:34 WBC 7.2 RBC 3.23 L Hgb 10.3 L Hct 30.4 L MCV 94.1 MCH 31.9 MCHC 33.9 RDW 11.9 Plt Count 188 MPV 9.2 L Immature Gran % (Auto) 0.4 Neut % (Auto) 66.1 Lymph % (Auto) 17.9 L [place] % (Auto) 10.3 Eos % (Auto) 4.5 H Baso % (Auto) 0.8 Lymph # (Auto) 1.3 [place] # (Auto) 0.7 Eos # (Auto) 0.3 Baso # (Auto) 0.1 Abs Immat Gran (auto) 0.03 Absolute Neuts (auto) 4.8 Absolute Nucleated RBC 0.000 Nucleated RBC % (auto) 0.0 Sodium 141 Potassium 3.8 Chloride 104 Carbon Dioxide 24 Anion Gap 17 BUN 10 Creatinine 1.26 Estim Creat Clear Calc 67.5 Estimated GFR 59 Random Glucose 122 H Calcium 9.2 D Total Bilirubin 0.3 AST 38 H ALT 97 H Alkaline Phosphatase 122 H Ammonia 43 Total Protein 6.1 L Albumin 3.3 L Hepatitis A IgM Ab Hep Bs Antigen Hep Bs Antibody Hep B Core Total Ab Hepatitis C Ab (EIA) 04/20/23 08:53 WBC RBC Hgb Hct MCV MCH MCHC RDW Plt Count MPV Immature Gran % (Auto) Neut % (Auto) Lymph % (Auto) [place] % (Auto) Eos % (Auto) Baso % (Auto) Lymph # (Auto) [place] # (Auto) Eos # (Auto) Baso # (Auto) Abs Immat Gran (auto) Absolute Neuts (auto) Absolute Nucleated RBC Nucleated RBC % (auto) Sodium Potassium Chloride Carbon Dioxide Anion Gap BUN Creatinine Estim Creat Clear Calc Estimated GFR Random Glucose Calcium Total Bilirubin AST ALT Alkaline Phosphatase Ammonia Total Protein Albumin Hepatitis A IgM Ab Nonreactive Hep Bs Antigen Negative Hep Bs Antibody REACTIVE Hep B Core Total Ab Nonreactive Hepatitis C Ab (EIA) Nonreactive Imaging Diagnostic Imaging Impressions Head CT 04/14/23 11:29 IMPRESSION: No acute intracranial abnormality including hemorrhage, mass effect, hydrocephalus, or acute territorial edematous infarction. DS: Summary Hospital Course Hospital Course: 57 yo male admitted to adult psychiatry for exacerbation of alcohol use disorder, polysubstance use disorder, schizoaffective disorder, depressed type. Pt reported consistent intake of substances as he has completed a process of caring for his terminally ill mother who 11/01/21. He has a history of consistent Xanax use, stopped 04/2022 per [facility] and has been using Thorazine in addition to antidepressants to manage sx. Pt exhibited medication seeking behaviors during the admission, consistently reporting anxiety, insomnia that was not managed with medications ordered. Valium was used with some efficacy, although pt reported consistently feeling undermedicated. Medications were decreased due to pt appearing confused and oversedated, although pt denied these presenting sx. Valium tapering was initiated and will be completed upon discharge. Pt also was demanding of pain medication during his hospitalization which needed to be limited as well. Pt was offered and refused CSS. He signed a three day notice due to his belief that we were not providing enough benzodiazepines and opiates, stating we were using reverse psychology to decrease his medications. He did not believe that his chosen regime would exacerbate addiction symptoms. Pt was discharged to his home on the three day notice. Limited prescriptions were sent in. Follow up appointments were scheduled. Time spent discussing smoking cessation with patient: 3 to 10 minutes Status at Discharge Functional status at discharge: independent ambulation Overall status at discharge: patient is progressing back to baseline Time Spent with Patient Time attestation: Total time managing care of this patient today ____ minutes. Time spent: Greater than 30 minutes Discharge Plan Discharge Anticipated Discharge Date/Time: 04/22/23 12:36 Patient Disposition: Home, Self-Care Discharge Diagnosis: Schizoaffective Disorder Alcohol Use Disorder Polysubstance Use Disorder Referrals: [facility] Intake [Other] - 04/29/23 2:30 pm (Telehealth Follow up appts will be in person at the [facility]. ) Physician,None [Primary Care Provider] - 1 Week Discharge Medications: New albuterol sulfate [Ventolin HFA] 90 mcg/actuation Hfa Aerosol Inhaler 2 puff inhalation Q4H PRN (Reason: wheeze) Qty: 1 0RF ferrous sulfate 324 mg (65 mg iron) Tablet,Delayed Release (Dr/Ec) 324 mg PO DAILY Qty: 30 0RF chlorpromazine 100 mg Tablet 100 mg PO TID Qty: 21 4RF metoprolol succinate 25 mg Tablet Extended Release 24 Hr 25 mg PO DAILY Qty: 14 1RF Protocol: Hold for SBP/HR < HOLD for SBP < : 90 HOLD for HR < : 60 levothyroxine 25 mcg Tablet 25 mcg PO DAILY@0700 Qty: 30 0RF cyanocobalamin (vitamin B-12) 500 mcg Tablet 500 mcg PO DAILY Qty: 30 0RF folic acid 1 mg Tablet 1 mg PO DAILY Qty: 30 0RF multivitamin [Daily-Jamin] Tablet 1 tab PO DAILY Qty: 30 0RF thiamine mononitrate (vit B1) 100 mg Tablet 100 mg PO DAILY Qty: 30 0RF buspirone 15 mg tablet 15 mg PO TID Qty: 21 4RF chlorpromazine 200 mg tablet 200 mg PO BEDTIME Qty: 7 4RF naloxone [Narcan] 4 mg/actuation spray,non-aerosol 4 mg intranasal Q2M PRN (Reason: opioid overdose) Qty: 2 0RF Rx Instructions: spray 1 dose into ONE nostril; alternate nostrils w each dose until help arrives diazepam [Valium] 2 mg tablet 2 mg PO DAILY PRN (Reason: anxiety) Qty: 7 2RF Continued oxycodone-acetaminophen 5-325 mg tablet 1 tab PO Q6H PRN (Reason: severe pain) melatonin 3 mg tablet 9 mg PO DAILY PRN (Reason: Insomnia) Qty: 42 1RF pantoprazole 40 mg tablet,delayed release (DR/EC) 1 tab PO DAILY Qty: 30 0RF bupropion HCl 75 mg tablet 75 mg PO BID Qty: 28 1RF benztropine 1 mg tablet 1 mg PO BID PRN (Reason: Extrapyramidal Effects/Symptoms) Qty: 28 1RF nicotine 21 mg/24 hr patch 24 hour 1 patch topical DAILY Qty: 30 0RF gabapentin 100 mg capsule 100 mg PO BID Qty: 28 1RF prazosin 2 mg capsule 2 mg PO BEDTIME Qty: 14 1RF nicotine (polacrilex) 4 mg lozenge 4 mg PO QID PRN (Reason: Nicotine Cravings) Qty: 72 0RF Discontinued metoprolol succinate 50 mg tablet extended release 24 hr 1 tab PO DAILY amlodipine 10 mg tablet 10 mg PO DAILY lisinopril 20 mg tablet 20 mg PO DAILY buspirone 10 mg tablet 10 mg PO TID chlorpromazine 100 mg PO BEDTIME chlorpromazine 200 mg PO TID Patient Comments: PT states no longer taking TID, take 200mg @ bed time Dose Change Discharge Orders: Discharge Order (Routine); Ordered 04/22/23 Ordered By: Jacy Mendoza Diet: Advance to usual diet Activity on Discharge: As tolerated Stand Alone Forms: Patient Portal Discharge page, Community Support Care Plan Goals: Mood and Behavioral Stabilization Work on Sobriety Health Concerns: Mood and Behavioral Stabilization Work on Sobriety Plan of Treatment: Attend follow up appointments Take medications as directed Assessment: Pt leaves on a three day notice. Discharge Date/Time: 04/22/23 11:23
== END 2023-04-22 11:23 | disposition home or self-care (01) | DRG 885 ==
PROVIDERS: Psychiatry & Neurology Psychiatry; Admitting Provider Psychiatry & Neurology Psychiatry; Visit Provider Clinical Nurse Specialist Psychiatric/Mental Health, Adult
DX: F25.1 Schizoaffective disorder, depressive type (principal); F11.20 Opioid dependence, uncomplicated; F10.139 Alcohol abuse with withdrawal, unspecified; F17.210 Nicotine dependence, cigarettes, uncomplicated; F19.10 Other psychoactive substance abuse, uncomplicated; G62.9 Polyneuropathy, unspecified; G89.29 Other chronic pain; M54.59 Other low back pain; E03.8 Other specified hypothyroidism; K21.9 Gastro-esophageal reflux disease without esophagitis; K02.9 Dental caries, unspecified; M25.511 Pain in right shoulder; Z71.6 Tobacco abuse counseling; Z79.890 Hormone replacement therapy; Z79.899 Other long term (current) drug therapy
CPT/HCPCS: 36415; 70450; 80053; 80061; 82140; 82607; 82746; 83036; 84439; 84443; 85025; 86704; 86706; 86709; 86803; 87340

== ENCOUNTER → 2023-04-09 20:15 | Outpatient (BNV) | payer OTHER, SELFPAY | PROVIDERS: Admitting Provider Psychiatry & Neurology Psychiatry; Visit Provider Clinical Nurse Specialist Psychiatric/Mental Health, Adult | DX: F10.939 Alcohol use, unspecified with withdrawal, unspecified (principal); F19.90 Other psychoactive substance use, unspecified, uncomplicated; F25.9 Schizoaffective disorder, unspecified | CPT/HCPCS: 90792; 99231; 99232; 99239 ==

== ENCOUNTER → 2023-04-09 20:15 | Outpatient (BNV) | payer OTHER, SELFPAY | PROVIDERS: Admitting Provider Psychiatry & Neurology Psychiatry; Visit Provider Psychiatry & Neurology Psychiatry | DX: F10.939 Alcohol use, unspecified with withdrawal, unspecified (principal); F25.1 Schizoaffective disorder, depressive type; F19.90 Other psychoactive substance use, unspecified, uncomplicated | CPT/HCPCS: 99231 ==

== ENCOUNTER → 2023-04-09 20:15 | Outpatient (BNV) | payer OTHER, SELFPAY | PROVIDERS: Admitting Provider Psychiatry & Neurology Psychiatry; Visit Provider Student in an Organized Health Care Education/Training Program | DX: R07.9 Chest pain, unspecified (principal); M25.519 Pain in unspecified shoulder; M54.9 Dorsalgia, unspecified; I10 Essential (primary) hypertension | CPT/HCPCS: 99222 ==

== ENCOUNTER 2023-04-27 14:13 | Inpatient (IN) | payer OTHER, SELFPAY ==
[2023-04-27] VITALS (7 sets, daily range): BP systolic 107–127; BP diastolic 69–81; PULSE 96–115; RESP 14–18; TEMP 36.6–36.7; O2SAT 90–95; BMI 25.4
--- NOTE | ~2023-04-27 | XR_ITS ---
EXAMINATION: XR FOOT, RIGHT CLINICAL INFORMATION: Status post fracture COMPARISON: None available. TECHNIQUE: AP, lateral, and oblique views of the right foot. FINDINGS: There is a fracture of the distal right fibula with evidence of some healing changes. There is a small lucency in the fifth metatarsal head on one view which could reflect a small fracture or spurring. Remainder of the metatarsals unremarkable. There is first MTP joint space narrowing. The midfoot appears intact. No calcaneal disruption. XR/XR foot RT min 3V IMPRESSION: Fracture of the distal right fibula with evidence of some healing changes. Small lucency in the fifth metatarsal head on one view may reflect a small fracture or spurring. Degenerative changes.
--- NOTE | ~2023-04-27 | XR_ITS ---
EXAMINATION: XR CHEST CLINICAL INFORMATION: Chest pain. COMPARISON: 06/05/2022 chest radiograph. TECHNIQUE: 2 views of the chest were obtained. FINDINGS: The lungs are clear. There are no pleural effusions. The heart and mediastinal structures are unremarkable. Multilevel right rib reconstruction plates are noted in place. XR/XR chest 2V IMPRESSION: No acute cardiopulmonary process.
--- NOTE | 2023-04-27 14:22 | ED.GENADULT ---
HPI - General Adult General Chief complaint: ETOH/Substance Use Stated complaint: ETOH,STATES AUD/VISUAL HALLUCINATIONS PER EMS Time Seen by Provider: 04/27/23 14:21 Source: patient, EMS and RN notes reviewed Mode of arrival: EMS Limitations: no limitations History of Present Illness HPI narrative: This is a 57-year-old male with a PMH significant for?HTN, GERD, alcohol use disorder, chronic back and right shoulder pain on chronic opioids, depression, and anxiety, recent psychiatric hospital admission April 02 - April 22, 2023, who presents to the emergency department today with complaints of ETOH intoxication. Patient was just discharged on April 22, 2023 from psychiatric inpatient medicine. Patient reports that after being discharged from the hospital on April 22 he was feeling overwhelmed with all the medications he was discharged on and ultimately relapsed on alcohol. He states that he last drank 3 nips of alcohol prior to his arrival in the emergency department. Patient is tearful about recent relapse. He endorses suicidal ideation stating that he feels though he would be better off . He reports some chest pain. He denies shortness of breath, abdominal pain, nausea vomiting or diarrhea. No other complaints or concerns at this time. MD complaint: ETOH abuse Radiation: non-radiation Pain Consistency: constant Relieving factors: none Exacerbating factors: none Associated symptoms: denies other symptoms Treatments prior to arrival: none Related Data Home Medications Medication Instructions Recorded Confirmed oxycodone-acetaminophen 5 mg-325 1 tab PO Q6H PRN severe pain 04/09/23 04/28/23 mg tablet Previous Rx's Medication Instructions Recorded albuterol sulfate 90 mcg/actuation 2 puff inhalation Q4H PRN wheeze 04/21/23 aerosol inhaler (Ventolin HFA) #1 inhaler benztropine 1 mg tablet 1 mg PO BID PRN Extrapyramidal 04/21/23 Effects/Symptoms #28 tabs bupropion HCl 75 mg tablet 75 mg PO BID #28 tabs 04/21/23 buspirone 15 mg tablet 15 mg PO TID #21 tabs 04/21/23 chlorpromazine 100 mg tablet 100 mg PO TID #21 tabs 04/21/23 chlorpromazine 200 mg tablet 200 mg PO BEDTIME #7 tabs 04/21/23 cyanocobalamin (vitamin B-12) 500 500 mcg PO DAILY #30 tabs 04/21/23 mcg tablet ferrous sulfate 324 mg (65 mg 324 mg PO DAILY #30 tabs 04/21/23 iron) tablet,delayed release folic acid 1 mg tablet 1 mg PO DAILY #30 tabs 04/21/23 gabapentin 100 mg capsule 100 mg PO BID #28 caps 04/21/23 levothyroxine 25 mcg tablet 25 mcg PO DAILY@0700 #30 tabs 04/21/23 melatonin 3 mg tablet 9 mg PO DAILY PRN Insomnia #42 tabs 04/21/23 metoprolol succinate 25 mg 25 mg PO DAILY #14 tabs 04/21/23 tablet,extended release 24 hr multivitamin (Daily-Jamin tablet) 1 tab PO DAILY #30 tabs 04/21/23 naloxone 4 mg/actuation nasal 4 mg intranasal Q2M PRN opioid 04/21/23 spray (Narcan) overdose #2 ea nicotine (polacrilex) 4 mg buccal 4 mg PO QID PRN Nicotine Cravings 04/21/23 lozenge #72 ea nicotine 21 mg/24 hr daily 1 patch topical DAILY #30 ea 04/21/23 transdermal patch pantoprazole 40 mg tablet,delayed 1 tab PO DAILY #30 tabs 04/21/23 release prazosin 2 mg capsule 2 mg PO BEDTIME #14 caps 04/21/23 thiamine mononitrate (vit B1) 100 100 mg PO DAILY #30 tabs 04/21/23 mg tablet diazepam 2 mg tablet (Valium) 2 mg PO DAILY PRN anxiety #7 tabs 04/23/23 Allergies Allergy/AdvReac Type Severity Reaction Status Date / Time aspirin [ASA] Allergy Unknown FACIAL Verified 04/14/23 09:16 SWELLING Penicillins [PENICILLINS] Allergy Unknown HIVES Verified 04/14/23 09:16 trazodone Allergy Anaphylaxis Verified 04/14/23 09:16 tramadol [TRAMADOL] AdvReac Unknown NAUSEA & Verified 04/14/23 09:16 VOMITING Review of Systems Review of Systems: Yes all other systems are reviewed and are negative Constitutional: Constitutional: Reports as per [facility] Past Medical History Medical History (Updated 04/10/23 @ 18:08 by HOLLI James) Chronic diarrhea Colitis GERD (gastroesophageal reflux disease) Heavy tobacco smoker History of colitis HTN (hypertension) Opiate dependence Polysubstance use disorder Schizoaffective disorder Family History Family History Mother Alzheimer disease Multiple sclerosis Social History Social History Household Members: None Housing: Unknown / Unable to assess Housing Other:: hotel Do you presently have visiting nurse or other home services: No Alcohol intake: current Alcohol intake frequency: 3 or more drinks per day Patient Tobacco Use Status: Current everyday Tobacco user Tobacco use type: Cigarette Cigarette Packs Per Day: 1 Cigarettes Per Day: 20.0 e-Cigarette/Vaping Use: Never Used Second Hand Smoke Exposure: No Substance Use Type: Marijuana Advance Directives: No Advance Directives Information Provided: Yes Healthcare Proxy: No Guardian: No service: No Sexual orientation: Straight/Heterosexual Physical Exam ED Vital Signs: Vital Signs - 24 hr 04/27/23 14:37 04/27/23 15:06 04/27/23 15:49 Temperature 98 F Pulse Rate 115 H 107 H 105 H Respiratory Rate 16 18 16 Blood Pressure 118/69 127/78 114/74 Pulse Oximetry 91 L 95 95 Oxygen Delivery Method Room Air Nasal Cannula Nasal Cannula Oxygen Flow Rate 1 1 04/27/23 17:50 04/27/23 19:39 04/27/23 19:40 Temperature 98.1 F Pulse Rate 108 H 101 H Respiratory Rate 14 18 Blood Pressure 107/71 125/81 Pulse Oximetry 95 90 L 93 Oxygen Delivery Method Nasal Cannula Room Air Nasal Cannula Oxygen Flow Rate 2 1 04/27/23 22:23 04/28/23 00:00 04/28/23 01:57 Temperature Pulse Rate 96 99 99 Respiratory Rate 14 14 14 Blood Pressure 118/71 128/83 136/87 Pulse Oximetry 95 95 92 Oxygen Delivery Method Room Air Nasal Cannula Room Air Oxygen Flow Rate 1 04/28/23 02:58 04/28/23 09:18 Temperature Pulse Rate 102 H 118 H Respiratory Rate 16 Blood Pressure 116/75 Pulse Oximetry 93 96 Oxygen Delivery Method Room Air Room Air Oxygen Flow Rate BMI result Body Mass Index 25.4 Const Other: Tearful, anxious appearing. Etoh halitosis Appears clinically intoxicated, but is answering all questions appropriately. General: cooperative, comfortable and no acute distress Orientation/consciousness: patient oriented x3 Limitations: no limitations HENMT Head: Yes normal to inspection, Yes normocephalic and Yes atraumatic Ears: hearing grossly normal bilaterally General nose exam: Normal external nose present Face and sinus: Yes normal facial exam Mouth: Normal oral and palatal mucosa present, oropharynx normal and moist mucous membranes Throat: Yes posterior oropharynx normal Eyes General: appearance normal, both eyes and all related structures Eyelids: Yes eyelids normal Conjunctivae: conjunctivae normal Sclerae: sclerae normal Pupils: Equal, round and reactive pupils present EOM: EOMs intact bilaterally Neck Neck: Yes normal visual inspection, Yes full ROM and Yes no lymphadenopathy Lymphatic: no lymphadenopathy noted Chest Chest palpation & inspection: normal inspection of the chest Resp Other: Coarse lung sounds at bilateral lung bases. No wheeze today she Effort & Inspection: normal respiratory effort and able to speak in complete sentences Auscultation: clear to auscultation bilaterally, no crackles, no rales, no rhonchi and no wheezes Cardio Rate: regular rate Rhythm: regular rhythm Heart sounds: S1 normal heart sound present and S2 normal heart sound present GI Inspection: Yes normal to inspection Skin General skin exam: no rashes or lesions noted Trauma: no lacerations or abrasions Wounds: no wounds Neuro General: patient oriented x3 and moves all extremities Cranial nerves: Yes Equal, round and reactive pupils present Extrem General: Yes normal to inspection Right upper extremity: normal to inspection Left upper extremity: normal to inspection Right lower extremity: normal to inspection Left lower extremity: normal to inspection Course Reevaluation(s) Reevaluation #1: No leukocytosis, H and H improved since last visit. Chemistry still pending, chest x-ray unremarkable. Sign-out given to Rubens Lynn PA-C. Time: 16:37 Reevaluation #2: Patient medically cleared for care to evaluation Reevaluation #3: Patient has been seen and evaluated by care team patient will be a bed search, on eventful night by the nurse, TAYA, continue with physician observation. Time: 12:05 Medications Administered Generic Name Dose Route Start Last Admin Trade Name Freq PRN Reason Stop Dose Admin Buspirone HCl 15 mg 04/28/23 09:00 04/28/23 09:08 Buspirone Hcl 5 Mg Tablet PO 15 mg TID CALVIN Administration Chlorpromazine HCl 200 mg 04/28/23 01:15 04/28/23 01:28 Chlorpromazine Hcl 100 Mg Tablet PO 200 mg BEDTIME CALVIN Administration Cyanocobalamin 500 mcg 04/28/23 09:00 04/28/23 09:27 Cyanocobalamin (Vitamin B-12) 500 Mcg Tablet PO 500 mcg DAILY CALVIN Administration Folic Acid 1 mg 04/28/23 09:00 04/28/23 09:08 Folic Acid 1 Mg Tablet PO 1 mg DAILY CALVIN Administration Gabapentin 100 mg 04/28/23 09:00 04/28/23 09:08 Gabapentin 100 Mg Capsule PO 100 mg BID CALVIN Administration Levothyroxine Sodium 25 mcg 04/28/23 07:00 04/28/23 09:09 Levothyroxine Sodium 25 Mcg Tablet PO 25 mcg DAILY@0700 CALVIN Administration Lorazepam 1 mg 04/27/23 17:00 04/28/23 09:08 Lorazepam 1 Mg Tablet PO 05/01/23 16:59 1 mg Q4H CALVIN Administration Taper Melatonin 9 mg 04/28/23 01:06 04/28/23 01:28 Melatonin 3 Mg Tablet PO 9 mg DAILY PRN Administration Insomnia Metoprolol Succinate 25 mg 04/28/23 09:00 04/28/23 09:08 Metoprolol Succinate Er 25 Mg Tab.Er.24h PO 25 mg DAILY CALVIN Administration Protocol Multivitamins/Vitamin C 1 tab 04/28/23 09:00 04/28/23 09:08 Multivitamin Tablet PO 1 tab DAILY CALVIN Administration Omeprazole 20 mg 04/28/23 09:00 04/28/23 09:08 Omeprazole 20 Mg Capsule.Dr PO 20 mg DAILY CALVIN Administration Prazosin HCl 2 mg 04/28/23 01:15 04/28/23 01:36 Prazosin Hcl 1 Mg Capsule PO Not Given BEDTIME CALVIN Protocol Thiamine HCl 100 mg 04/28/23 09:00 04/28/23 09:08 Thiamine Hcl 100 Mg Tablet PO 100 mg DAILY CALVIN Administration Discontinued Medications Generic Name Dose Route Start Last Admin Trade Name Freq PRN Reason Stop Dose Admin Lorazepam 2 mg 04/27/23 14:50 04/27/23 15:14 Lorazepam 1 Mg Tablet PO 04/27/23 14:51 2 mg ONCE ONE Administration Medical Decision Making Medical Decision Making MDM Narrative: This is a 57-year-old male with a PMH significant for?HTN, GERD, alcohol use disorder, chronic back and right shoulder pain on chronic opioids, depression, and anxiety, recent psychiatric hospital admission April 02 April 22, 2023, who presents to the emergency department today with complaints of ETOH intoxication. Patient endorsing chest pain. He appears clinically intoxicated however is alert and arousable. On arrival, patient mildly tachycardic, oxygen saturation 91% on room air. Patient placed on 1 L nasal cannula. Endorsing SI, placed on 1:1 safety checks, crisis and care team consult ordered and pending. Plan: Labs, EKG, CIWA scale, Ativan taper p.r.n., chest x-ray Differential Diagnosis Differential Diagnoses: The differential diagnosis associated with the presentation includes Alcohol abuse intoxication on substance abuse, depression, anxiety, suicidal ideation Lab Data MDM Lab Attestation statement: I reviewed the patient's lab results. 04/27/23 15:02 04/27/23 15:02 Labs: Lab Results 04/27/23 04/27/23 04/27/23 Range/Units 15:02 15:02 15:02 WBC 6.1 (4.8-10.8) X10*3/uL RBC 3.82 L (4.60-5.80) X10*6/uL Hgb 12.1 L (14.0-18.0) g/dl Hct 35.4 L (42.0-52.0) % MCV 92.7 (80.0-98.0) fL MCH 31.7 (27.0-33.0) pg MCHC 34.2 (31.0-36.0) g/dl RDW 12.2 (11.0-16.0) % Plt Count 298 D (160-400) X10*3/uL MPV 8.5 L (9.4-12.4) fL Immature Gran % (Auto) 0.2 (0.0-0.4) % Neut % (Auto) 64.7 (45-73) % Lymph % (Auto) 26.6 (20-40) % [place] % (Auto) 5.5 (2-11) % Eos % (Auto) 1.5 (0-4) % Baso % (Auto) 1.5 (0-2) % Lymph # (Auto) 1.6 (1.2-4.9) X10*3/uL [place] # (Auto) 0.3 (0.1-1.2) X10*3/uL Eos # (Auto) 0.1 (0.0-0.4) X10*3/uL Baso # (Auto) 0.1 (0.0-0.2) X10*3/uL Abs Immat Gran (auto) 0.01 (0.00-0.03) X10*3/uL Absolute Neuts (auto) 4.0 (2.0-8.3) x10*3/uL Absolute Nucleated RBC 0.000 (0.0-0.012) X10*3/uL Nucleated RBC % (auto) 0.0 (0.0-0.2) /100WBC Sodium 143 (135-145) mmol/L Potassium 3.8 (3.3-5.1) mmol/L Chloride 107 (96-108) mmol/L Carbon Dioxide 23 (22-29) mmol/L Anion Gap 17 (12-20) BUN 16 (9-16) mg/dL Creatinine 1.08 (0.5-1.4) mg/dL Estim Creat Clear Calc 78.8 Estimated GFR > 60 Random Glucose 91 (60-115) mg/dL Calcium 9.5 (8.4-10.2) mg/dL Magnesium 1.9 (1.6-2.6) mg/dL Total Bilirubin 0.4 (0.0-1.0) mg/dL Direct Bilirubin 0.2 (0.0-0.5) mg/dL AST 27 (5-37) U/L ALT 27 (0-40) U/L Alkaline Phosphatase 118 H (39-117) U/L Troponin I High Sens < 2.7 (<3.5-35.0) ng/L Total Protein 7.7 (6.5-8.0) g/dL Albumin 4.2 (3.5-5.0) g/dL Lipase 13 (8-78) U/L Urine Color Urine Appearance Urine pH (5.0-9.0) Ur Specific [place] (1.005-1.025) Urine Protein (Neg-Trace) mg/dL Urine Glucose (UA) (Negative) mg/dL Urine Ketones (Negative) mg/dL Urine Blood (Negative) Urine Nitrite (Negative) Ur Leukocyte Esterase (Negative) Urine Opiates Screen (Not Detect) Urine Fentanyl Screen (Not Detect) Ur Barbiturates Screen (Not Detect) Ur Phencyclidine Scrn (Not Detect) Ur Amphetamines Screen (Not Detect) U Benzodiazepines Scrn (Not Detect) Urine Cocaine Screen (Not Detect) U Marijuana (THC) Screen (Not Detect) Ethyl Alcohol 333 H* mg/dL COVID-19 (BRYN) (Negative) COVID-19 Clin Com 04/27/23 04/27/23 04/28/23 Range/Units 21:30 21:30 10:33 WBC (4.8-10.8) X10*3/uL RBC (4.60-5.80) X10*6/uL Hgb (14.0-18.0) g/dl Hct (42.0-52.0) % MCV (80.0-98.0) fL MCH (27.0-33.0) pg MCHC (31.0-36.0) g/dl RDW (11.0-16.0) % Plt Count (160-400) X10*3/uL MPV (9.4-12.4) fL Immature Gran % (Auto) (0.0-0.4) % Neut % (Auto) (45-73) % Lymph % (Auto) (20-40) % [place] % (Auto) (2-11) % Eos % (Auto) (0-4) % Baso % (Auto) (0-2) % Lymph # (Auto) (1.2-4.9) X10*3/uL [place] # (Auto) (0.1-1.2) X10*3/uL Eos # (Auto) (0.0-0.4) X10*3/uL Baso # (Auto) (0.0-0.2) X10*3/uL Abs Immat Gran (auto) (0.00-0.03) X10*3/uL Absolute Neuts (auto) (2.0-8.3) x10*3/uL Absolute Nucleated RBC (0.0-0.012) X10*3/uL Nucleated RBC % (auto) (0.0-0.2) /100WBC Sodium (135-145) mmol/L Potassium (3.3-5.1) mmol/L Chloride (96-108) mmol/L Carbon Dioxide (22-29) mmol/L Anion Gap (12-20) BUN (9-16) mg/dL Creatinine (0.5-1.4) mg/dL Estim Creat Clear Calc Estimated GFR Random Glucose (60-115) mg/dL Calcium (8.4-10.2) mg/dL Magnesium (1.6-2.6) mg/dL Total Bilirubin (0.0-1.0) mg/dL Direct Bilirubin (0.0-0.5) mg/dL AST (5-37) U/L ALT (0-40) U/L Alkaline Phosphatase (39-117) U/L Troponin I High Sens (<3.5-35.0) ng/L Total Protein (6.5-8.0) g/dL Albumin (3.5-5.0) g/dL Lipase (8-78) U/L Urine Color Yellow Urine Appearance Clear Urine pH 5.5 (5.0-9.0) Ur Specific [place] 1.015 (1.005-1.025) Urine Protein Negative (Neg-Trace) mg/dL Urine Glucose (UA) Negative (Negative) mg/dL Urine Ketones Negative (Negative) mg/dL Urine Blood Negative (Negative) Urine Nitrite Negative (Negative) Ur Leukocyte Esterase Negative (Negative) Urine Opiates Screen Not Detected (Not Detect) Urine Fentanyl Screen Not Detected (Not Detect) Ur Barbiturates Screen Not Detected (Not Detect) Ur Phencyclidine Scrn Not Detected (Not Detect) Ur Amphetamines Screen Not Detected (Not Detect) U Benzodiazepines Scrn POSITIVE H (Not Detect) Urine Cocaine Screen Not Detected (Not Detect) U Marijuana (THC) Screen POSITIVE H (Not Detect) Ethyl Alcohol mg/dL COVID-19 (BRYN) Negative (Negative) COVID-19 Clin Com See Note Independent Interpretation I performed an independent interpretation of an: EKG Interpretation: EKG sinus tachycardia at 104 beats per minute, QTC 476. No ST elevation or depression Radiology Impression Discussion of test interpretation with radiology: I have reviewed the radiologist's reading. Radiologist Impression: EXAMINATION: XR CHEST CLINICAL INFORMATION: Chest pain. COMPARISON: 06/05/2022 chest radiograph. TECHNIQUE: 2 views of the chest were obtained. FINDINGS: The lungs are clear. There are no pleural effusions. The heart and mediastinal structures are unremarkable. Multilevel right rib reconstruction plates are noted in place. XR/XR chest 2V IMPRESSION: No acute cardiopulmonary process. ? Dictated By: Kristofer Langston MD Discharge Plan Discharge Clinical Impression: Alcohol abuse Patient Disposition: Still a Patient Prescriptions: No Action oxycodone-acetaminophen 5-325 mg tablet 1 tab PO Q6H PRN (Reason: severe pain) albuterol sulfate [Ventolin HFA] 90 mcg/actuation Hfa Aerosol Inhaler 2 puff inhalation Q4H PRN (Reason: wheeze) Qty: 1 0RF ferrous sulfate 324 mg (65 mg iron) Tablet,Delayed Release (Dr/Ec) 324 mg PO DAILY Qty: 30 0RF chlorpromazine 100 mg Tablet 100 mg PO TID Qty: 21 4RF metoprolol succinate 25 mg Tablet Extended Release 24 Hr 25 mg PO DAILY Qty: 14 1RF Protocol: Hold for SBP/HR < HOLD for SBP < : 90 HOLD for HR < : 60 levothyroxine 25 mcg Tablet 25 mcg PO DAILY@0700 Qty: 30 0RF cyanocobalamin (vitamin B-12) 500 mcg Tablet 500 mcg PO DAILY Qty: 30 0RF folic acid 1 mg Tablet 1 mg PO DAILY Qty: 30 0RF multivitamin [Daily-Jamin] Tablet 1 tab PO DAILY Qty: 30 0RF thiamine mononitrate (vit B1) 100 mg Tablet 100 mg PO DAILY Qty: 30 0RF buspirone 15 mg tablet 15 mg PO TID Qty: 21 4RF chlorpromazine 200 mg tablet 200 mg PO BEDTIME Qty: 7 4RF melatonin 3 mg tablet 9 mg PO DAILY PRN (Reason: Insomnia) Qty: 42 1RF pantoprazole 40 mg tablet,delayed release (DR/EC) 1 tab PO DAILY Qty: 30 0RF bupropion HCl 75 mg tablet 75 mg PO BID Qty: 28 1RF benztropine 1 mg tablet 1 mg PO BID PRN (Reason: Extrapyramidal Effects/Symptoms) Qty: 28 1RF nicotine 21 mg/24 hr patch 24 hour 1 patch topical DAILY Qty: 30 0RF gabapentin 100 mg capsule 100 mg PO BID Qty: 28 1RF prazosin 2 mg capsule 2 mg PO BEDTIME Qty: 14 1RF nicotine (polacrilex) 4 mg lozenge 4 mg PO QID PRN (Reason: Nicotine Cravings) Qty: 72 0RF naloxone [Narcan] 4 mg/actuation spray,non-aerosol 4 mg intranasal Q2M PRN (Reason: opioid overdose) Qty: 2 0RF Rx Instructions: spray 1 dose into ONE nostril; alternate nostrils w each dose until help arrives diazepam [Valium] 2 mg tablet 2 mg PO DAILY PRN (Reason: anxiety) Qty: 7 2RF
--- NOTE | 2023-04-27 14:49 | ECG_ITS ---
Test Reason : weak Blood Pressure : / mmHG Vent. Rate : 104 BPM Atrial Rate : 104 BPM P-R Int : 180 ms QRS Dur : 098 ms QT Int : 362 ms P-R-T Axes : 056 -44 050 degrees QTc Int : 476 ms Sinus tachycardia Left axis deviation Abnormal ECG When compared with ECG of 29-MAY-2022 13:55, Heart rate has increased Referred By: Lakesha Hutchison Electronically Signed By:DARRION WINSLOW
[2023-04-27] MEDS: LORazepam 1 MG TABLET 2 MG PO (15:14)
[2023-04-27 15:15] LABS: MANUAL DIFF FLAG NO
[2023-04-27 15:19] LABS: Basophils Absolute Auto 0.1 X10*3/uL (0.0-0.2); Basophils Percent Auto 1.5 % (0-2); Eosinophils Absolute Auto 0.1 X10*3/uL (0.0-0.4); Eosinophils Percent Auto 1.5 % (0-4); Hematocrit 35.4 % (42.0-52.0); Hemoglobin 12.1 g/dl (14.0-18.0); Imm Gran Abs Auto 0.01 X10*3/uL (0.00-0.03); Imm Gran Pct Auto 0.2 % (0.0-0.4); Lymphocytes Absolute Auto 1.6 X10*3/uL (1.2-4.9); Lymphocytes Percent Auto 26.6 % (20-40); Mean Corpuscular HGB Conc 34.2 g/dl (31.0-36.0); Mean Corpuscular Hemoglobin 31.7 pg (27.0-33.0); Mean Corpuscular Volume 92.7 fL (80.0-98.0); Mean Platelet Volume 8.5 fL (9.4-12.4); Monocytes Absolute Auto 0.3 X10*3/uL (0.1-1.2); Monocytes Percent Auto 5.5 % (2-11); Neutrophils Percent Auto 64.7 % (45-73); Platelet Count 298 X10*3/uL (160-400); Red Blood Count 3.82 X10*6/uL (4.60-5.80); Red Cell Distribution Width 12.2 % (11.0-16.0); White Blood Count 6.1 X10*3/uL (4.8-10.8)
[2023-04-27 16:56] LABS: Alanine Aminotransferase 27 U/L (0-40); Albumin Level 4.2 g/dL (3.5-5.0); Alkaline Phosphatase 118 U/L (39-117); Anion Gap 17 (12-20); Aspartate Amino Transferase 27 U/L (5-37); Bilirubin Direct 0.2 mg/dL (0.0-0.5); Bilirubin Total 0.4 mg/dL (0.0-1.0); Blood Urea Nitrogen 16 mg/dL (9-16); Calcium 9.5 mg/dL (8.4-10.2); Carbon Dioxide 23 mmol/L (22-29); Chloride 107 mmol/L (96-108); Creatinine Clr Calc Pharmacy 78.8; Estimated Glomerular Filt Rate > 60; Ethanol 333 mg/dL; Glucose Random 91 mg/dL (60-115); Lipase 13 U/L (8-78); Magnesium 1.9 mg/dL (1.6-2.6); Potassium 3.8 mmol/L (3.3-5.1); Sodium 143 mmol/L (135-145); Total Protein 7.7 g/dL (6.5-8.0)
[2023-04-27 17:04] LABS: Troponin-I High Sensitivity < 2.7 ng/L (<3.5-35.0)
--- NOTE | 2023-04-27 17:52 | PC.NURSE ---
continues to rest quietly in room, respirations even and unlabored. call weathers within reach.
[2023-04-27] MEDS: LORazepam 1 MG TABLET PO ×2 (18:15→21:20)
--- NOTE | 2023-04-27 19:42 | PC.NURSE ---
This comic book writer assumed care of this Pt at 1900. Pt appears to be sleeping, awakens with verbal command, Pt reports mild headache, and pain to his feet. Pt on 1L via NC, Spo2 93%, trial off o2 90% on RA, Pt reports SOB, lung sounds diminished, no respiratory distress noted, Pt speaking in full sentences. Pt reports he feels safe while here, denies SI/HI/AH, reports visual hallucinations seeing things that aren't here . Belongings locked up in closet. Unsuccessful attempt to give urine sample at this time.
[2023-04-27 21:37] LABS: Appearance Urine Clear; Color Urine Yellow; Glucose Urine UA Negative (Negative); Leukocyte Esterase Urine Negative (Negative); Nitrite Urine Negative (Negative); PH 5.5 (5.0-9.0); Specific Gravity - Urine 1.015 (1.005-1.025); Urine Blood Negative (Negative); Urine Ketones Negative (Negative); Urine Protein Negative (Neg-Trace)
--- NOTE | 2023-04-27 21:42 | PC.NURSE ---
Addendum entered by Jaelyn Vazquez 04/28/23 00:31: Pt states SI thoughts are intermittent, requesting sleeping meds, provider notified. Original Note: Pt standing at bed side using urinal, urine collected and sent to lab. Meds given per nov. wctm.
[2023-04-27 21:46] LABS: Amphetamine Screen Urine Not Detected (Not Detect); Barbiturates, Urine Not Detected (Not Detect); Benzodiazepines Screen Urine POSITIVE (Not Detect); Cannabinoid Screen Urine POSITIVE (Not Detect); Cocaine Screen Urine Not Detected (Not Detect); Fentanyl, urine Not Detected (Not Detect); Opiate Screen Urine Not Detected (Not Detect); Phencyclidine Screen Urine Not Detected (Not Detect)
[2023-04-28] VITALS (7 sets, daily range): BP systolic 116–136; BP diastolic 75–95; PULSE 99–118; RESP 14–18; TEMP 36.6; O2SAT 92–96
[2023-04-28] MEDS: LORazepam 1 MG TABLET PO ×6 (00:28→19:48)
[2023-04-28] MEDS: Melatonin 3 MG TABLET 9 MG PO ×2 (01:28→19:48)
[2023-04-28] MEDS: chlorproMAZINE HCl 100 MG TABLET 200 MG PO (01:28)
--- NOTE | 2023-04-28 02:59 | PC.NURSE ---
Pt ambulated to bathroom with a steady gait, pt has ortho boot on right foot.
--- NOTE | 2023-04-28 03:17 | PC.NURSE ---
pt transferred from Main ED, bedside report given to nurse
--- NOTE | 2023-04-28 05:00 | PC.NURSE ---
pt ciwa is 3, medicated with scheduled ativan
[2023-04-28] MEDS: Metoprolol Succinate ER 25 MG TAB.ER.24H PO (09:08)
[2023-04-28] MEDS: Gabapentin 100 MG CAPSULE PO ×2 (09:08→19:48)
[2023-04-28] MEDS: Multivitamin TABLET 1 TAB PO (09:08)
[2023-04-28] MEDS: Folic Acid 1 MG TABLET PO (09:08)
[2023-04-28] MEDS: Thiamine HCL 100 MG TABLET PO (09:08)
[2023-04-28] MEDS: busPIRone HCl 5 MG TABLET 15 MG PO ×3 (09:08→19:47)
[2023-04-28] MEDS: Omeprazole 20 MG CAPSULE.DR PO (09:08)
[2023-04-28] MEDS: Levothyroxine Sodium 25 MCG TABLET PO (09:09)
[2023-04-28] MEDS: Cyanocobalamin (Vitamin B-12) 500 MCG TABLET PO (09:27)
[2023-04-28 11:07] LABS: COVID-19 Test Negative (Negative); IDNOW Serial# BCCEAD1C
--- NOTE | 2023-04-28 13:08 | PC.NURSE ---
pt reports increased anxiety; ciwa score 7. pt medicated per mar.
--- NOTE | 2023-04-28 13:08 | PHA.MEDREC ---
Pharmacy Consult ? Medication Reconciliation Pharmacy has reviewed the medication reconciliation completed by Jaelyn. There are no remarkable issues for provider's attention. Patient recently discharged from inpatient psych unit on 04/22/23. Utilize claim history and discharge summary to review. Estephania Quintana, PharmD
[2023-04-28] MEDS: chlorproMAZINE HCl 100 MG TABLET PO ×2 (15:24→19:47)
[2023-04-28] MEDS: Prazosin HCL 1 MG CAPSULE 2 MG PO (19:46)
[2023-04-28] MEDS: Ibuprofen 600 MG TABLET PO (20:29)
--- NOTE | 2023-04-28 22:42 | PC.ADMIT ---
PT is a 55 year old male that arrived on this unit at 16:45 from the [facility] via wheelchair and was placed on 5 minute safety checks due to orthopedic boot on right foot (due to old fracture). PT is known to this unit and was recently discharged on 04/21/2023. Pt reports he immediately began drinking alcohol after discharge and has since been drinking 1/5 of [employer] daily. PT reports he was overwhelmed by the amount of bottles of medication he has and needs help sorting out what to take. PTs BAL was 333 upon arrival to the ED and CIWA is ordered q 4 hours. Last CIWA was 7 at 8pm and 1 mg of Ativan was administered with positive effect. PT reports passive SI w/ out a plan, feeling hopeless and tearful throughout admission process. TOX + for marijuana and benzos, and the benzos are prescribed. PT reports chronic long standing use of marijuana daily. COVID neg. PT has no permanent address and has been staying at hotels. PT does not have outside providers and will need assistance facilitating this. Admission orders obtained, treatment plan and safety tool completed. Promote safety and begin tx plan. VS stable at this time, pt currently resting in bed, respirations even and unlabored and in no apparent distress. Nothing further to report at this time.
[2023-04-29] MEDS: Levothyroxine Sodium 25 MCG TABLET PO (06:33)
[2023-04-29 08:29] LABS: Estimated Average Glucose 94 mg/dL; Hemoglobin A1c % 4.9 %
[2023-04-29] MEDS: Folic Acid 1 MG TABLET PO (08:39)
[2023-04-29] MEDS: chlorproMAZINE HCl 100 MG TABLET PO ×3 (08:39→19:52)
[2023-04-29] MEDS: Gabapentin 100 MG CAPSULE PO (08:40)
[2023-04-29] MEDS: Thiamine HCL 100 MG TABLET PO (08:40)
[2023-04-29] MEDS: hydrOXYzine HCL 25 MG TABLET PO ×3 (08:40→22:27)
[2023-04-29] MEDS: Omeprazole 20 MG CAPSULE.DR PO (08:40)
[2023-04-29] MEDS: busPIRone HCl 5 MG TABLET 15 MG PO ×3 (08:40→19:53)
[2023-04-29] MEDS: Cyanocobalamin (Vitamin B-12) 500 MCG TABLET PO (08:40)
[2023-04-29] MEDS: Metoprolol Succinate ER 25 MG TAB.ER.24H PO (08:40)
[2023-04-29] MEDS: Multivitamin TABLET 1 TAB PO (08:40)
[2023-04-29 08:44] LABS: Cholesterol 310 mg/dL; HDL Cholesterol 50 mg/dL; LDL Cholesterol Calculated 182 mg/dl; Magnesium 1.8 mg/dL (1.6-2.6); Triglycerides 390 mg/dL
[2023-04-29] MEDS: LORazepam 1 MG TABLET PO ×3 (08:44→16:27)
[2023-04-29 08:59] LABS: Free T4 (Free Thyroxine) 0.85 ng/dL (0.71-1.85); Thyroid Stimulating Hormone 3.01 uIU/mL (0.32-4.0)
[2023-04-29 09:14] LABS: Folate 15.6 ng/mL (> or = 4.0); Vitamin B12 584 pg/mL (200-900)
[2023-04-29 09:46] VITALS: BP 132/78; PULSE 78; RESP 16; TEMP 37; O2SAT 98
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
[2023-04-29] MEDS: Ferrous Sulfate 324 MG TABLET.DR 325 MG PO (12:17)
[2023-04-29] MEDS: amLODIPine Besylate 5 MG TABLET PO (12:18)
[2023-04-29] MEDS: buPROPion HCL 75 MG TABLET PO (12:18)
[2023-04-29] MEDS: Nicotine 21 MG PATCH.TD24 TRANSDERMA (12:18)
[2023-04-29] MEDS: Nicotine Polacrilex Lozenge 4 MG LOZENGE BUCCAL (14:01)
[2023-04-29] MEDS: Lidocaine 4 % Patch ADH..PATCH 1 PATCH TRANSDERMA (14:34)
[2023-04-29] MEDS: Gabapentin 300 MG CAPSULE PO ×2 (14:34→19:52)
[2023-04-29 18:00] VITALS: BP 122/80; PULSE 68; RESP 16; TEMP 36.4; O2SAT 98
[2023-04-29] MEDS: Prazosin HCL 1 MG CAPSULE 2 MG PO (19:52)
[2023-04-29] MEDS: chlorproMAZINE HCl 100 MG TABLET 200 MG PO (19:52)
[2023-04-29] MEDS: Acetaminophen 325 MG TABLET 650 MG PO (19:57)
[2023-04-29] MEDS: Melatonin 3 MG TABLET 9 MG PO (22:27)
[2023-04-29] MEDS: Nicotine Polacrilex 2 MG GUM 4 MG BUCCAL (22:31)
[2023-04-30] MEDS: Levothyroxine Sodium 25 MCG TABLET PO (06:05)
[2023-04-30 07:00] VITALS: BMI 25.2
[2023-04-30] MEDS: Thiamine HCL 100 MG TABLET PO (08:11)
[2023-04-30] MEDS: Multivitamin TABLET 1 TAB PO (08:11)
[2023-04-30] MEDS: Cyanocobalamin (Vitamin B-12) 500 MCG TABLET PO (08:11)
[2023-04-30] MEDS: Gabapentin 300 MG CAPSULE PO (08:11)
[2023-04-30] MEDS: busPIRone HCl 5 MG TABLET 15 MG PO ×3 (08:11→19:23)
[2023-04-30] MEDS: amLODIPine Besylate 5 MG TABLET PO (08:11)
[2023-04-30] MEDS: buPROPion HCL 75 MG TABLET PO (08:11)
[2023-04-30] MEDS: Omeprazole 20 MG CAPSULE.DR PO (08:11)
[2023-04-30] MEDS: Metoprolol Succinate ER 25 MG TAB.ER.24H PO (08:12)
[2023-04-30] MEDS: Folic Acid 1 MG TABLET PO (08:12)
[2023-04-30] MEDS: chlorproMAZINE HCl 100 MG TABLET PO ×3 (08:12→19:25)
[2023-04-30] MEDS: Ferrous Sulfate 324 MG TABLET.DR 325 MG PO (08:12)
[2023-04-30] MEDS: LORazepam 1 MG TABLET PO ×2 (08:12→16:36)
[2023-04-30 08:21] VITALS: BP 128/92; PULSE 93; RESP 16; TEMP 36.4; O2SAT 96
[2023-04-30] MEDS: Nicotine 21 MG PATCH.TD24 TRANSDERMA (08:22)
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
[2023-04-30] MEDS: hydrOXYzine HCL 25 MG TABLET PO ×2 (13:46→19:25)
[2023-04-30] MEDS: Nicotine Polacrilex 2 MG GUM 4 MG BUCCAL ×2 (13:53→20:31)
[2023-04-30] MEDS: Gabapentin 100 MG CAPSULE PO ×2 (14:06→19:25)
[2023-04-30] MEDS: QUEtiapine Fumarate 100 MG TABLET PO ×2 (14:57→20:24)
[2023-04-30 18:00] VITALS: BP 122/78; PULSE 95; RESP 16; TEMP 36.4; O2SAT 97
[2023-04-30] MEDS: Ibuprofen 800 MG TABLET PO (19:24)
[2023-04-30] MEDS: Prazosin HCL 1 MG CAPSULE 2 MG PO (19:25)
[2023-04-30] MEDS: Atorvastatin Calcium 10 MG TABLET PO (19:25)
[2023-04-30] MEDS: Melatonin 3 MG TABLET 9 MG PO (23:57)
[2023-04-30] MEDS: chlorproMAZINE HCl 100 MG TABLET 200 MG PO (23:58)
[2023-04-30] MEDS: LORazepam 1 MG TABLET 2 MG PO (23:58)
[2023-05-01 08:40] VITALS: BP 144/83; PULSE 81; RESP 18; TEMP 36.4; O2SAT 98
[2023-05-01] MEDS: Nicotine 21 MG PATCH.TD24 TRANSDERMA (08:44)
[2023-05-01] MEDS: Omeprazole 20 MG CAPSULE.DR PO (08:45)
[2023-05-01] MEDS: Levothyroxine Sodium 25 MCG TABLET PO (08:46)
[2023-05-01] MEDS: amLODIPine Besylate 5 MG TABLET PO (08:46)
[2023-05-01] MEDS: busPIRone HCl 5 MG TABLET 15 MG PO ×3 (08:47→21:34)
[2023-05-01] MEDS: Sertraline HCL 25 MG TABLET PO (08:47)
[2023-05-01] MEDS: chlorproMAZINE HCl 100 MG TABLET PO (08:47)
[2023-05-01] MEDS: Thiamine HCL 100 MG TABLET PO (08:47)
[2023-05-01] MEDS: Cyanocobalamin (Vitamin B-12) 500 MCG TABLET PO (08:47)
[2023-05-01] MEDS: Gabapentin 100 MG CAPSULE PO ×3 (08:48→21:33)
[2023-05-01] MEDS: Metoprolol Succinate ER 25 MG TAB.ER.24H PO (08:48)
[2023-05-01] MEDS: Folic Acid 1 MG TABLET PO (08:48)
[2023-05-01] MEDS: Ferrous Sulfate 324 MG TABLET.DR PO (08:48)
[2023-05-01] MEDS: buPROPion HCL 75 MG TABLET PO (08:48)
[2023-05-01] MEDS: Multivitamin TABLET 1 TAB PO (08:48)
--- NOTE | 2023-05-01 09:02 | P.PNPSI_ITS ---
Subjective Subjective Date of Service: 05/01/23 Reason For Visit: ETOH,STATES AUD/VISUAL HALLUCINATIONS PER EMS Subjective Notes: Conditional Voluntary Healthcare Proxy: No Guardianship: No Medical Problems Affecting Mental Status: No Interim History: Met with pt and Liza COOPER today. Pt continues to be medicine seeking and unrealistic about expectations for post hospital care. Asks for a [facility], rest home, believes they will keep him from drinking. Discussed realistic expectations. Liza reviewed our available options. Pt reluctant, but agreed to apply to [facility]. Upset that we are not giving narcotics for foot pain. Discussed referral to [facility] for follow up care for his foot. He agrees. Review of meds. Seroquel increase to 100 mg tid prn, Chlorpromazine increase to 150 mg tid. Told pt we will need to watch for increase in confusion . Pt states he wants to try to work with the team on his care. Discussed that [facility] worked well with him and talked about getting him a rest home-asking for a transfer. Medication Compliance: Yes Side effects from medications: No Attending Groups: Yes Review of Systems Acute medical concerns: No Medical Review of Systems: unchanged Mental Status Exam Mental Status Exam Patient Appearance: Fatigued and Appropriate Patient Orientation: Person, Place, Time and Situation Level of Consciousness: Alert Patient Behavior: Talkative and Good Eye Contact Mood Description: Depressed Affect Description: Flat Patient Cognition Impaired: No Ability to Follow Directions: Fair Speech Pattern: Spontaneous Speech Memory Description: Episodic Impaired Hallucinations: None Delusions: Not Present Perceptual Disturbances: Depersonalization and Derealization Thought Process: Rumination Thought Content: positive for [place], positive for Perseveration and positive for Suicidal Ideation Depressive Symptoms: Insomnia, Difficulty Sleeping, Loss of Int. in Activity, Feelings of Worthlessness, Hopelessness, Isolating-Friends/Family, Feelings of Guilt, Unhappiness, Increased Fatigue, Thoughts of /Suicide, Low Self Esteem, Loss of Energy and Difficulty Concentrating Judgement: Fair Diagnostics Vital Signs (24Hr): Vital Signs - 24 hr 04/30/23 18:00 05/01/23 08:40 Temperature 97.6 F 97.5 F Pulse Rate 95 81 Respiratory Rate 16 18 Blood Pressure 122/78 144/83 H Pulse Oximetry 97 98 Oxygen Delivery Method Room Air Room Air BMI result Body Mass Index 25.2 Labs 04/27/23 15:02 08/14/23 15:02 Labs: Laboratory Results - last 48 hr 04/29/23 07:47 Vitamin B12 584 Folate 15.6 Imaging Radiology Impressions: ITS Impressions Chest X-Ray 04/27/23 15:21 IMPRESSION: No acute cardiopulmonary process. Foot X-Ray 04/29/23 10:33 IMPRESSION: Fracture of the distal right fibula with evidence of some healing changes. Small lucency in the fifth metatarsal head on one view may reflect a small fracture or spurring. Degenerative changes. Medications Medications Current Medications Acetaminophen (Acetaminophen 325 Mg Tablet) 650 mg PO Q6H PRN PRN Reason: Headache/Pain Mild Scale (1-3) Last Admin: 04/29/23 19:57 Dose: 650 mg Al Hydroxide/Mg Hydroxide (Magnesium Hydrox/Alum Hydrox 30 Ml Oral.Susp) 30 ml PO Q6H PRN PRN Reason: Heartburn/Nausea Albuterol Sulfate (Albuterol Sulfate 90 Mcg 8 Gm Inhaler) 2 puff INHALE Q4H PRN PRN Reason: wheeze Amlodipine Besylate (Amlodipine Besylate 5 Mg Tablet) 5 mg PO DAILY [facility]; Protocol Last Admin: 05/01/23 08:46 Dose: 5 mg Atorvastatin Calcium (Atorvastatin Calcium 10 Mg Tablet) 10 mg PO BEDTIME [facility] Last Admin: 04/30/23 19:25 Dose: 10 mg Benztropine Mesylate (Benztropine Mesylate 1 Mg Tablet) 1 mg PO BID PRN PRN Reason: Extrapyramidal Effects/Symptoms Bupropion HCl (Bupropion Hcl 75 Mg Tablet) 75 mg PO DAILY [facility] Last Admin: 05/01/23 08:48 Dose: 75 mg Buspirone HCl (Buspirone Hcl 5 Mg Tablet) 15 mg PO TID [facility] Last Admin: 05/01/23 08:47 Dose: 15 mg Chlorpromazine HCl (Chlorpromazine Hcl 100 Mg Tablet) 100 mg PO TID [facility] Last Admin: 05/01/23 08:47 Dose: 100 mg Chlorpromazine HCl (Chlorpromazine Hcl 100 Mg Tablet) 200 mg PO BEDTIME [facility] Last Admin: 04/30/23 23:58 Dose: 200 mg Cyanocobalamin (Cyanocobalamin (Vitamin B-12) 500 Mcg Tablet) 500 mcg PO DAILY [facility] Last Admin: 05/01/23 08:47 Dose: 500 mcg Ferrous Sulfate (Ferrous Sulfate 324 Mg Tablet.Dr) 324 mg PO DAILY [facility] Last Admin: 05/01/23 08:48 Dose: 324 mg Folic Acid (Folic Acid 1 Mg Tablet) 1 mg PO DAILY [facility] Last Admin: 05/01/23 08:48 Dose: 1 mg Gabapentin (Gabapentin 100 Mg Capsule) 100 mg PO TID [facility] Last Admin: 05/01/23 08:48 Dose: 100 mg Hydroxyzine HCl (Hydroxyzine Hcl 25 Mg Tablet) 25 mg PO Q6H PRN PRN Reason: Anxiety Last Admin: 04/30/23 19:25 Dose: 25 mg Ibuprofen (Ibuprofen 800 Mg Tablet) 800 mg PO Q8H PRN PRN Reason: Pain, Mild (Pain Scale 1-3) Last Admin: 04/30/23 19:24 Dose: 800 mg Levothyroxine Sodium (Levothyroxine Sodium 25 Mcg Tablet) 25 mcg PO DAILY@0700 [facility] Last Admin: 05/01/23 08:46 Dose: 25 mcg Lidocaine (Lidocaine 4 % Patch Adh..Patch) 1 patch TRANSDERMA DAILY [facility] Last Admin: 04/30/23 08:25 Dose: Not Given Lorazepam (Lorazepam 1 Mg Tablet) 1 mg PO Q2H PRN PRN Reason: CIWA 6-10 Last Admin: 04/30/23 16:36 Dose: 1 mg Lorazepam (Lorazepam 1 Mg Tablet) 2 mg PO Q2H PRN PRN Reason: CIWA 11 and above Last Admin: 04/30/23 23:58 Dose: 2 mg Magnesium Hydroxide (Milk Of Magnesia 30 Ml Oral.Susp) 30 ml PO DAILY PRN PRN Reason: Constipation Magnesium Hydroxide (Milk Of Magnesia 30 Ml Oral.Susp) 30 ml PO DAILY PRN PRN Reason: constipation Melatonin (Melatonin 3 Mg Tablet) 9 mg PO DAILY PRN PRN Reason: Insomnia Last Admin: 04/30/23 23:57 Dose: 9 mg Metoprolol Succinate (Metoprolol Succinate Er 25 Mg Tab.Er.24h) 25 mg PO DAILY [facility]; Protocol Last Admin: 05/01/23 08:48 Dose: 25 mg Multivitamins/Vitamin C (Multivitamin Tablet) 1 tab PO DAILY [facility] Last Admin: 05/01/23 08:48 Dose: 1 tab Nicotine (Nicotine 21 Mg Patch.Td24) 21 mg TRANSDERMA DAILY [facility] Last Admin: 05/01/23 08:44 Dose: 21 mg Nicotine Polacrilex (Nicotine Polacrilex 2 Mg Gum) 4 mg BUCCAL Q2H PRN PRN Reason: Nicotine Cravings Last Admin: 04/30/23 20:31 Dose: 4 mg Omeprazole (Omeprazole 20 Mg Capsule.Dr) 20 mg PO DAILY [facility] Last Admin: 05/01/23 08:45 Dose: 20 mg Prazosin HCl (Prazosin Hcl 1 Mg Capsule) 2 mg PO BEDTIME [facility]; Protocol Last Admin: 04/30/23 19:25 Dose: 2 mg Quetiapine Fumarate (Quetiapine Fumarate 100 Mg Tablet) 100 mg PO BID PRN PRN Reason: Anxiety Last Admin: 04/30/23 20:24 Dose: 100 mg Sertraline HCl (Sertraline Hcl 25 Mg Tablet) 25 mg PO DAILY [facility] Last Admin: 05/01/23 08:47 Dose: 25 mg Thiamine HCl (Thiamine Hcl 100 Mg Tablet) 100 mg PO DAILY [facility] Last Admin: 05/01/23 08:47 Dose: 100 mg Allergies Allergies Allergy/AdvReac Type Severity Reaction Status Date / Time aspirin [ASA] Allergy Unknown FACIAL Verified 04/14/23 09:16 SWELLING Penicillins [PENICILLINS] Allergy Unknown HIVES Verified 04/14/23 09:16 trazodone Allergy Anaphylaxis Verified 04/14/23 09:16 tramadol [TRAMADOL] AdvReac Unknown NAUSEA & Verified 04/14/23 09:16 VOMITING Assessment & Plan Assessment & Plan (1) Polysubstance use disorder: Status: Acute Code(s): F19.90 - Other psychoactive substance use, unspecified, uncomplicated (2) Schizoaffective disorder: Status: Acute Code(s): F25.9 - Schizoaffective disorder, unspecified (3) Alcohol use disorder, severe, dependence: Status: Acute Code(s): F10.20 - Alcohol dependence, uncomplicated Plan 57 yo male, history of schizoaffective disorder, polysubstance use disorder, alcohol use disorder, returns after recent discharge. Pt reports he began alcohol use upon discharge and could not organize his meds to take them correctly. Pt was asked to leave his living situation and today asks to [facility] and be placed in a nursing facility. Pt accepting of his treatment plan. Benzodiazepines will be used per [facility] only. Plan: Lorazepam detox per [facility] Addiction consult Begin to explore longer term residential treatment options. Medications reviewed with pt and adjusted --Gabapentin increase to 300 mg tid --Amlodipine 5 mg daily --Nicotine Patch/Gum --Follow up xray of foot (injured spring 2022) 04/30/23 Decrease Gabapentin-slurring of speech Ibuprofen prn pain Sertraline 25 mg daily 05/01/23 Increase Seroquel to 100 mg tid prn Increase Chlorpromazine to 150 mg tid Team will help him apply to [facility] Patient educated on: medication risk/benefits, substance abuse, therapeutic strategies and other Informed Consent: further education needed Reason for continued inpatient stay Substantial Risk for: rapid decompensation and med/psych decompensation Time Spent With Patient Time: Total time managing care of this patient today ____ minutes.
[2023-05-01] MEDS: LORazepam 1 MG TABLET PO ×4 (09:29→21:43)
[2023-05-01] MEDS: hydrOXYzine HCL 25 MG TABLET PO ×2 (09:29→16:19)
[2023-05-01] MEDS: QUEtiapine Fumarate 100 MG TABLET PO ×3 (09:29→18:46)
[2023-05-01] MEDS: chlorproMAZINE HCl 25 MG TABLET 150 MG PO ×2 (14:24→21:33)
[2023-05-01] MEDS: Nicotine Polacrilex 2 MG GUM 4 MG BUCCAL ×2 (16:52→18:46)
[2023-05-01] MEDS: Ibuprofen 800 MG TABLET PO (19:34)
[2023-05-01 19:40] VITALS: BP 117/74; PULSE 104; RESP 16; TEMP 36.6; O2SAT 97
[2023-05-01] MEDS: Prazosin HCL 1 MG CAPSULE 2 MG PO (21:33)
[2023-05-01] MEDS: chlorproMAZINE HCl 100 MG TABLET 200 MG PO (21:33)
[2023-05-01] MEDS: Atorvastatin Calcium 10 MG TABLET PO (21:33)
[2023-05-01] MEDS: Albuterol Sulfate 90 MCG 8 GM INHALER 2 PUFF INHALE (22:54)
[2023-05-01] MEDS: Melatonin 3 MG TABLET 9 MG PO (22:56)
[2023-05-02 06:00] VITALS: BP 150/80; PULSE 90; RESP 16; TEMP 36.6; O2SAT 97
[2023-05-02] MEDS: Levothyroxine Sodium 25 MCG TABLET PO (06:07)
[2023-05-02] MEDS: chlorproMAZINE HCl 25 MG TABLET 150 MG PO ×3 (09:46→19:32)
[2023-05-02] MEDS: Thiamine HCL 100 MG TABLET PO (09:47)
[2023-05-02] MEDS: Omeprazole 20 MG CAPSULE.DR PO (09:47)
[2023-05-02] MEDS: busPIRone HCl 5 MG TABLET 15 MG PO ×3 (09:47→21:06)
[2023-05-02] MEDS: Cyanocobalamin (Vitamin B-12) 500 MCG TABLET PO (09:47)
[2023-05-02] MEDS: Sertraline HCL 25 MG TABLET PO (09:47)
[2023-05-02] MEDS: Folic Acid 1 MG TABLET PO (09:47)
[2023-05-02] MEDS: Multivitamin TABLET 1 TAB PO (09:47)
[2023-05-02] MEDS: buPROPion HCL 75 MG TABLET PO (09:47)
[2023-05-02] MEDS: Gabapentin 100 MG CAPSULE PO ×3 (09:47→21:07)
[2023-05-02] MEDS: amLODIPine Besylate 5 MG TABLET PO (09:47)
[2023-05-02] MEDS: Nicotine 21 MG PATCH.TD24 TRANSDERMA (09:47)
[2023-05-02] MEDS: Ferrous Sulfate 324 MG TABLET.DR PO (09:47)
[2023-05-02] MEDS: Metoprolol Succinate ER 25 MG TAB.ER.24H PO (09:47)
[2023-05-02] MEDS: LORazepam 1 MG TABLET PO ×2 (10:06→17:21)
[2023-05-02] MEDS: hydrOXYzine HCL 25 MG TABLET PO ×2 (10:06→21:11)
[2023-05-02] MEDS: QUEtiapine Fumarate 100 MG TABLET PO ×3 (10:06→17:21)
--- NOTE | 2023-05-02 12:03 | HO.PSYCHPN ---
Subjective Subjective Date of Service: 05/02/23 Reason For Visit: ETOH,STATES AUD/VISUAL HALLUCINATIONS PER EMS Interim History: Pt continues to be medicine seeking stating he is very anxios and meds aren't enough; TW encouraged him to work on coping skills; No sedation; no SI or HI Medication Compliance: Yes Side effects from medications: No Attending Groups: Yes Review of Systems Acute medical concerns: No Review of Systems Review of Systems Yes all other systems are reviewed and are negative Constitutional: Reports as per HPI and Reports no additional constitutional complaints Eyes: Reports no additional eye complaints Reports system reviewed and no additional complaints, except as documented Cardiovascular: Reports no additional cardiovascular complaints Respiratory: Reports no additional respiratory complaints Gastrointestinal: Reports no additional gastrointestinal complaints Genitourinary: Reports no additional male genitourinary complaints Musculoskeletal: Reports other (foot pain-xray results are pending.) Skin/Breast: Reports system reviewed and no additional complaints, except as docu Reports system reviewed and no additional complaints, except as documented and Reports behavioral changes Psychiatric: Reports abnormal sleep pattern, Reports anxiety, Reports behavioral changes, Reports change in appetite, Reports depression, Reports difficulty concentrating, Reports hopelessness, Reports irritability, Reports anhedonia, Reports mood swings, Reports panic attacks and Reports suicidal ideation Endocrine: Reports no additional endocrine complaints Hematologic/Lymphatic: Reports no additional hematologic/lymphatic complaints Allergic/Immunologic: Reports no additional allergic/immunologic complaints Mental Status Exam Mental Status Exam Patient Appearance: Fatigued and Appropriate Patient Orientation: Person, Place, Time and Situation Level of Consciousness: Alert Patient Behavior: Talkative and Good Eye Contact Mood Description: Depressed Affect Description: Flat Patient Cognition Impaired: No Ability to Follow Directions: Fair Speech Pattern: Spontaneous Speech Memory Description: Episodic Impaired Thought Process: Intact and Rumination Thought Content: positive for Preoccupation Judgement: Fair Diagnostics Vital Signs (24Hr): Vital Signs - 24 hr 05/01/23 19:40 05/02/23 06:00 Temperature 97.9 F 97.9 F Pulse Rate 104 H 90 Respiratory Rate 16 16 Blood Pressure 117/74 150/80 H Pulse Oximetry 97 97 Oxygen Delivery Method Room Air Room Air BMI result Body Mass Index 25.2 Labs 04/27/23 15:02 04/27/23 15:02 Imaging Radiology Impressions: ITS Impressions Chest X-Ray 04/27/23 15:21 IMPRESSION: No acute cardiopulmonary process. Foot X-Ray 04/29/23 10:33 IMPRESSION: Fracture of the distal right fibula with evidence of some healing changes. Small lucency in the fifth metatarsal head on one view may reflect a small fracture or spurring. Degenerative changes. Medications Medications Current Medications Acetaminophen (Acetaminophen 325 Mg Tablet) 650 mg PO Q6H PRN PRN Reason: Headache/Pain Mild Scale (1-3) Last Admin: 04/29/23 19:57 Dose: 650 mg Al Hydroxide/Mg Hydroxide (Magnesium Hydrox/Alum Hydrox 30 Ml Oral.Susp) 30 ml PO Q6H PRN PRN Reason: Heartburn/Nausea Albuterol Sulfate (Albuterol Sulfate 90 Mcg 8 Gm Inhaler) 2 puff INHALE Q4H PRN PRN Reason: wheeze Last Admin: 05/01/23 22:54 Dose: 2 puff Amlodipine Besylate (Amlodipine Besylate 5 Mg Tablet) 5 mg PO DAILY [facility]; Protocol Last Admin: 05/02/23 09:47 Dose: 5 mg Atorvastatin Calcium (Atorvastatin Calcium 10 Mg Tablet) 10 mg PO BEDTIME [facility] Last Admin: 05/01/23 21:33 Dose: 10 mg Benztropine Mesylate (Benztropine Mesylate 1 Mg Tablet) 1 mg PO BID PRN PRN Reason: Extrapyramidal Effects/Symptoms Bupropion HCl (Bupropion Hcl 75 Mg Tablet) 75 mg PO DAILY [facility] Last Admin: 05/02/23 09:47 Dose: 75 mg Buspirone HCl (Buspirone Hcl 5 Mg Tablet) 15 mg PO TID [facility] Last Admin: 05/02/23 09:47 Dose: 15 mg Chlorpromazine HCl (Chlorpromazine Hcl 100 Mg Tablet) 200 mg PO BEDTIME [facility] Last Admin: 05/01/23 21:33 Dose: 200 mg Chlorpromazine HCl (Chlorpromazine Hcl 25 Mg Tablet) 150 mg PO TID [facility] Last Admin: 05/02/23 09:46 Dose: 150 mg Cyanocobalamin (Cyanocobalamin (Vitamin B-12) 500 Mcg Tablet) 500 mcg PO DAILY [facility] Last Admin: 05/02/23 09:47 Dose: 500 mcg Ferrous Sulfate (Ferrous Sulfate 324 Mg Tablet.Dr) 324 mg PO DAILY [facility] Last Admin: 05/02/23 09:47 Dose: 324 mg Folic Acid (Folic Acid 1 Mg Tablet) 1 mg PO DAILY [facility] Last Admin: 05/02/23 09:47 Dose: 1 mg Gabapentin (Gabapentin 100 Mg Capsule) 100 mg PO TID [facility] Last Admin: 05/02/23 09:47 Dose: 100 mg Hydroxyzine HCl (Hydroxyzine Hcl 25 Mg Tablet) 25 mg PO Q6H PRN PRN Reason: Anxiety Last Admin: 05/02/23 10:06 Dose: 25 mg Ibuprofen (Ibuprofen 800 Mg Tablet) 800 mg PO Q8H PRN PRN Reason: Pain, Mild (Pain Scale 1-3) Last Admin: 05/01/23 19:34 Dose: 800 mg Levothyroxine Sodium (Levothyroxine Sodium 25 Mcg Tablet) 25 mcg PO DAILY@0700 [facility] Last Admin: 05/02/23 06:07 Dose: 25 mcg Lidocaine (Lidocaine 4 % Patch Adh..Patch) 1 patch TRANSDERMA DAILY [facility] Last Admin: 05/02/23 09:57 Dose: Not Given Lorazepam (Lorazepam 1 Mg Tablet) 1 mg PO Q2H PRN PRN Reason: CIWA 6-10 Last Admin: 05/02/23 10:06 Dose: 1 mg Lorazepam (Lorazepam 1 Mg Tablet) 2 mg PO Q2H PRN PRN Reason: CIWA 11 and above Last Admin: 04/30/23 23:58 Dose: 2 mg Magnesium Hydroxide (Milk Of Magnesia 30 Ml Oral.Susp) 30 ml PO DAILY PRN PRN Reason: Constipation Magnesium Hydroxide (Milk Of Magnesia 30 Ml Oral.Susp) 30 ml PO DAILY PRN PRN Reason: constipation Melatonin (Melatonin 3 Mg Tablet) 9 mg PO DAILY PRN PRN Reason: Insomnia Last Admin: 05/01/23 22:56 Dose: 9 mg Metoprolol Succinate (Metoprolol Succinate Er 25 Mg Tab.Er.24h) 25 mg PO DAILY [facility]; Protocol Last Admin: 05/02/23 09:47 Dose: 25 mg Multivitamins/Vitamin C (Multivitamin Tablet) 1 tab PO DAILY [facility] Last Admin: 05/02/23 09:47 Dose: 1 tab Nicotine (Nicotine 21 Mg Patch.Td24) 21 mg TRANSDERMA DAILY [facility] Last Admin: 05/02/23 09:47 Dose: 21 mg Nicotine Polacrilex (Nicotine Polacrilex 2 Mg Gum) 4 mg BUCCAL Q2H PRN PRN Reason: Nicotine Cravings Last Admin: 05/01/23 18:46 Dose: 4 mg Omeprazole (Omeprazole 20 Mg Capsule.) 20 mg PO DAILY [facility] Last Admin: 05/02/23 09:47 Dose: 20 mg Prazosin HCl (Prazosin Hcl 1 Mg Capsule) 2 mg PO BEDTIME [facility]; Protocol Last Admin: 05/01/23 21:33 Dose: 2 mg Quetiapine Fumarate (Quetiapine Fumarate 100 Mg Tablet) 100 mg PO TID PRN PRN Reason: Anxiety Last Admin: 05/02/23 10:06 Dose: 100 mg Sertraline HCl (Sertraline Hcl 25 Mg Tablet) 25 mg PO DAILY [facility] Last Admin: 05/02/23 09:47 Dose: 25 mg Thiamine HCl (Thiamine Hcl 100 Mg Tablet) 100 mg PO DAILY [facility] Last Admin: 05/02/23 09:47 Dose: 100 mg Allergies Allergies Allergy/AdvReac Type Severity Reaction Status Date / Time aspirin [ASA] Allergy Unknown FACIAL Verified 04/14/23 09:16 SWELLING Penicillins [PENICILLINS] Allergy Unknown HIVES Verified 04/14/23 09:16 trazodone Allergy Anaphylaxis Verified 04/14/23 09:16 tramadol [TRAMADOL] AdvReac Unknown NAUSEA & Verified 04/14/23 09:16 VOMITING Assessment & Plan Assessment & Plan (1) Polysubstance use disorder: Status: Acute Code(s): F19.90 - Other psychoactive substance use, unspecified, uncomplicated (2) Schizoaffective disorder: Status: Acute Code(s): F25.9 - Schizoaffective disorder, unspecified (3) Alcohol use disorder, severe, dependence: Status: Acute Code(s): F10.20 - Alcohol dependence, uncomplicated Plan 57 yo male, history of schizoaffective disorder, polysubstance use disorder, alcohol use disorder, returns after recent discharge. Pt reports he began alcohol use upon discharge and could not organize his meds to take them correctly. Pt was asked to leave his living situation and today asks to return to [facility] and be placed in a nursing facility. Pt accepting of his treatment plan. Benzodiazepines will be used per [facility] only. Plan: Lorazepam detox per [facility] Addiction consult Begin to explore longer term residential treatment options. Medications reviewed with pt and adjusted --Gabapentin increase to 300 mg tid --Amlodipine 5 mg daily --Nicotine Patch/Gum --Follow up xray of foot (injured spring 2022) 04/30/23 Decrease Gabapentin-slurring of speech Ibuprofen prn pain Sertraline 25 mg daily 05/01/23 Increase Seroquel to 100 mg tid prn Increase Chlorpromazine to 150 mg tid Team will help him apply to [facility] 05/02/23 continue treatment plan Reason for continued inpatient stay Substantial Risk for: harm to self, inability to function and rapid decompensation Time Spent With Patient Time: Total time managing care of this patient today ____ minutes.
[2023-05-02] MEDS: LORazepam 1 MG TABLET 2 MG PO (13:03)
[2023-05-02] MEDS: Acetaminophen 325 MG TABLET 650 MG PO (14:09)
[2023-05-02] MEDS: Ibuprofen 800 MG TABLET PO (14:13)
[2023-05-02 21:00] VITALS: BP 117/76; PULSE 100; RESP 18
[2023-05-02] MEDS: Prazosin HCL 1 MG CAPSULE 2 MG PO (21:06)
[2023-05-02] MEDS: Melatonin 3 MG TABLET 9 MG PO (21:07)
[2023-05-02] MEDS: Atorvastatin Calcium 10 MG TABLET PO (21:07)
[2023-05-02] MEDS: Nicotine Polacrilex 2 MG GUM 4 MG BUCCAL (21:30)
[2023-05-03] MEDS: chlorproMAZINE HCl 100 MG TABLET 200 MG PO ×2 (01:22→23:40)
[2023-05-03 08:10] VITALS: BP 133/80; PULSE 105; RESP 16; TEMP 36.1; O2SAT 98
[2023-05-03] MEDS: Nicotine 21 MG PATCH.TD24 TRANSDERMA (08:12)
[2023-05-03] MEDS: chlorproMAZINE HCl 25 MG TABLET 150 MG PO ×3 (08:12→21:10)
[2023-05-03] MEDS: Cyanocobalamin (Vitamin B-12) 500 MCG TABLET PO (08:13)
[2023-05-03] MEDS: buPROPion HCL 75 MG TABLET PO (08:13)
[2023-05-03] MEDS: amLODIPine Besylate 5 MG TABLET PO (08:13)
[2023-05-03] MEDS: Levothyroxine Sodium 25 MCG TABLET PO (08:13)
[2023-05-03] MEDS: Folic Acid 1 MG TABLET PO (08:13)
[2023-05-03] MEDS: Thiamine HCL 100 MG TABLET PO (08:14)
[2023-05-03] MEDS: Sertraline HCL 25 MG TABLET PO (08:14)
[2023-05-03] MEDS: busPIRone HCl 5 MG TABLET 15 MG PO ×3 (08:14→21:10)
[2023-05-03] MEDS: Gabapentin 100 MG CAPSULE PO ×3 (08:14→21:11)
[2023-05-03] MEDS: Omeprazole 20 MG CAPSULE.DR PO (08:14)
[2023-05-03] MEDS: Metoprolol Succinate ER 25 MG TAB.ER.24H PO (08:14)
[2023-05-03] MEDS: Multivitamin TABLET 1 TAB PO (08:14)
[2023-05-03] MEDS: Ferrous Sulfate 324 MG TABLET.DR PO (08:14)
[2023-05-03] MEDS: LORazepam 1 MG TABLET PO ×4 (08:17→19:50)
[2023-05-03] MEDS: QUEtiapine Fumarate 100 MG TABLET PO ×2 (08:17→11:26)
[2023-05-03] MEDS: Nicotine Polacrilex 2 MG GUM 4 MG BUCCAL ×3 (11:28→19:50)
--- NOTE | 2023-05-03 12:30 | HO.PSYCHPN ---
Subjective Subjective Date of Service: 05/03/23 Reason For Visit: ETOH,STATES AUD/VISUAL HALLUCINATIONS PER EMS Subjective Notes: Conditional Voluntary Healthcare Proxy: No Interim History: Pt continues to be medicine seeking stating he is very anxios and meds aren't enough; Pt asks for increase in seroquel- agreed to 25 mg increase; encourage him to use coping skills; encourage hydration. No sedation; no SI or HI Medication Compliance: Yes Side effects from medications: No Review of Systems Acute medical concerns: No Medical Review of Systems: unchanged Review of Systems Review of Systems Yes all other systems are reviewed and are negative Constitutional: Reports as per HPI and Reports no additional constitutional complaints Eyes: Reports no additional eye complaints Reports system reviewed and no additional complaints, except as documented Cardiovascular: Reports no additional cardiovascular complaints Respiratory: Reports no additional respiratory complaints Gastrointestinal: Reports no additional gastrointestinal complaints Genitourinary: Reports no additional male genitourinary complaints Musculoskeletal: Reports other (foot pain-xray results are pending.) Skin/Breast: Reports system reviewed and no additional complaints, except as docu Reports system reviewed and no additional complaints, except as documented and Reports behavioral changes Psychiatric: Reports abnormal sleep pattern, Reports anxiety, Reports behavioral changes, Reports change in appetite, Reports depression, Reports difficulty concentrating, Reports hopelessness, Reports irritability, Reports anhedonia, Reports mood swings, Reports panic attacks and Reports suicidal ideation Endocrine: Reports no additional endocrine complaints Hematologic/Lymphatic: Reports no additional hematologic/lymphatic complaints Allergic/Immunologic: Reports no additional allergic/immunologic complaints Mental Status Exam Mental Status Exam Patient Appearance: Well Grooomed and Appropriate Patient Orientation: Person, Place, Time and Situation Level of Consciousness: Alert Patient Behavior: Talkative and Good Eye Contact Mood Description: Depressed Affect Description: Flat Patient Cognition Impaired: No Ability to Follow Directions: Fair Speech Pattern: Spontaneous Speech Memory Description: Episodic Impaired Hallucinations: None Delusions: Not Present Thought Process: Intact and Goal Oriented Thought Content: positive for Intact and positive for Goal Oriented Judgement: Fair Diagnostics Vital Signs (24Hr): Vital Signs - 24 hr 05/02/23 21:00 05/03/23 08:10 Temperature 97.0 F Pulse Rate 100 105 H Respiratory Rate 18 16 Blood Pressure 117/76 133/80 Pulse Oximetry 98 Oxygen Delivery Method Room Air BMI result Body Mass Index 25.2 Labs 04/27/23 15:02 04/27/23 15:02 Imaging Radiology Impressions: ITS Impressions Chest X-Ray 04/27/23 15:21 IMPRESSION: No acute cardiopulmonary process. Foot X-Ray 04/29/23 10:33 IMPRESSION: Fracture of the distal right fibula with evidence of some healing changes. Small lucency in the fifth metatarsal head on one view may reflect a small fracture or spurring. Degenerative changes. Medications Medications Current Medications Acetaminophen (Acetaminophen 325 Mg Tablet) 650 mg PO Q6H PRN PRN Reason: Headache/Pain Mild Scale (1-3) Last Admin: 05/02/23 14:09 Dose: 650 mg Al Hydroxide/Mg Hydroxide (Magnesium Hydrox/Alum Hydrox 30 Ml Oral.Susp) 30 ml PO Q6H PRN PRN Reason: Heartburn/Nausea Albuterol Sulfate (Albuterol Sulfate 90 Mcg 8 Gm Inhaler) 2 puff INHALE Q4H PRN PRN Reason: wheeze Last Admin: 05/01/23 22:54 Dose: 2 puff Amlodipine Besylate (Amlodipine Besylate 5 Mg Tablet) 5 mg PO DAILY [facility]; Protocol Last Admin: 05/03/23 08:13 Dose: 5 mg Atorvastatin Calcium (Atorvastatin Calcium 10 Mg Tablet) 10 mg PO BEDTIME [facility] Last Admin: 05/02/23 21:07 Dose: 10 mg Benztropine Mesylate (Benztropine Mesylate 1 Mg Tablet) 1 mg PO BID PRN PRN Reason: Extrapyramidal Effects/Symptoms Bupropion HCl (Bupropion Hcl 75 Mg Tablet) 75 mg PO DAILY [facility] Last Admin: 05/03/23 08:13 Dose: 75 mg Buspirone HCl (Buspirone Hcl 5 Mg Tablet) 15 mg PO TID [facility] Last Admin: 05/03/23 08:14 Dose: 15 mg Chlorpromazine HCl (Chlorpromazine Hcl 100 Mg Tablet) 200 mg PO BEDTIME [facility] Last Admin: 05/03/23 01:22 Dose: 200 mg Chlorpromazine HCl (Chlorpromazine Hcl 25 Mg Tablet) 150 mg PO TID [facility] Last Admin: 05/03/23 08:12 Dose: 150 mg Cyanocobalamin (Cyanocobalamin (Vitamin B-12) 500 Mcg Tablet) 500 mcg PO DAILY [facility] Last Admin: 05/03/23 08:13 Dose: 500 mcg Ferrous Sulfate (Ferrous Sulfate 324 Mg Tablet.Dr) 324 mg PO DAILY [facility] Last Admin: 05/03/23 08:14 Dose: 324 mg Folic Acid (Folic Acid 1 Mg Tablet) 1 mg PO DAILY [facility] Last Admin: 05/03/23 08:13 Dose: 1 mg Gabapentin (Gabapentin 100 Mg Capsule) 100 mg PO TID [facility] Last Admin: 05/03/23 08:14 Dose: 100 mg Hydroxyzine HCl (Hydroxyzine Hcl 25 Mg Tablet) 25 mg PO Q6H PRN PRN Reason: Anxiety Last Admin: 05/02/23 21:11 Dose: 25 mg Ibuprofen (Ibuprofen 800 Mg Tablet) 800 mg PO Q8H PRN PRN Reason: Pain, Mild (Pain Scale 1-3) Last Admin: 05/02/23 14:13 Dose: 800 mg Levothyroxine Sodium (Levothyroxine Sodium 25 Mcg Tablet) 25 mcg PO DAILY@0700 [facility] Last Admin: 05/03/23 08:13 Dose: 25 mcg Lidocaine (Lidocaine 4 % Patch Adh..Patch) 1 patch TRANSDERMA DAILY [facility] Last Admin: 05/03/23 08:13 Dose: 1 patch Lorazepam (Lorazepam 1 Mg Tablet) 1 mg PO Q2H PRN PRN Reason: CIWA 6-10 Last Admin: 05/03/23 11:10 Dose: 1 mg Lorazepam (Lorazepam 1 Mg Tablet) 2 mg PO Q2H PRN PRN Reason: CIWA 11 and above Last Admin: 05/02/23 13:03 Dose: 2 mg Magnesium Hydroxide (Milk Of Magnesia 30 Ml Oral.Susp) 30 ml PO DAILY PRN PRN Reason: Constipation Magnesium Hydroxide (Milk Of Magnesia 30 Ml Oral.Susp) 30 ml PO DAILY PRN PRN Reason: constipation Melatonin (Melatonin 3 Mg Tablet) 9 mg PO DAILY PRN PRN Reason: Insomnia Last Admin: 05/02/23 21:07 Dose: 9 mg Metoprolol Succinate (Metoprolol Succinate Er 25 Mg Tab.Er.24h) 25 mg PO DAILY [facility]; Protocol Last Admin: 05/03/23 08:14 Dose: 25 mg Multivitamins/Vitamin C (Multivitamin Tablet) 1 tab PO DAILY [facility] Last Admin: 05/03/23 08:14 Dose: 1 tab Nicotine (Nicotine 21 Mg Patch.Td24) 21 mg TRANSDERMA DAILY [facility] Last Admin: 05/03/23 08:12 Dose: 21 mg Nicotine Polacrilex (Nicotine Polacrilex 2 Mg Gum) 4 mg BUCCAL Q2H PRN PRN Reason: Nicotine Cravings Last Admin: 05/03/23 11:28 Dose: 4 mg Omeprazole (Omeprazole 20 Mg Capsule.Dr) 20 mg PO DAILY [facility] Last Admin: 05/03/23 08:14 Dose: 20 mg Prazosin HCl (Prazosin Hcl 1 Mg Capsule) 2 mg PO BEDTIME [facility]; Protocol Last Admin: 05/02/23 21:06 Dose: 2 mg Quetiapine Fumarate (Quetiapine Fumarate 25 Mg Tablet) 125 mg PO TID PRN PRN Reason: Anxiety Sertraline HCl (Sertraline Hcl 25 Mg Tablet) 25 mg PO DAILY [facility] Last Admin: 05/03/23 08:14 Dose: 25 mg Thiamine HCl (Thiamine Hcl 100 Mg Tablet) 100 mg PO DAILY [facility] Last Admin: 05/03/23 08:14 Dose: 100 mg Allergies Allergies Allergy/AdvReac Type Severity Reaction Status Date / Time aspirin [ASA] Allergy Unknown FACIAL Verified 04/14/23 09:16 SWELLING Penicillins [PENICILLINS] Allergy Unknown HIVES Verified 04/14/23 09:16 trazodone Allergy Anaphylaxis Verified 04/14/23 09:16 tramadol [TRAMADOL] AdvReac Unknown NAUSEA & Verified 04/14/23 09:16 VOMITING Assessment & Plan Assessment & Plan (1) Polysubstance use disorder: Status: Acute Code(s): F19.90 - Other psychoactive substance use, unspecified, uncomplicated (2) Schizoaffective disorder: Status: Acute Code(s): F25.9 - Schizoaffective disorder, unspecified (3) Alcohol use disorder, severe, dependence: Status: Acute Code(s): F10.20 - Alcohol dependence, uncomplicated Plan 57 yo male, history of schizoaffective disorder, polysubstance use disorder, alcohol use disorder, returns after recent discharge. Pt reports he began alcohol use upon discharge and could not organize his meds to take them correctly. Pt was asked to leave his living situation and today asks to return to Valium/Xanax and be placed in a nursing facility. Pt accepting of his treatment plan. Benzodiazepines will be used per [facility] only. Plan: Lorazepam detox per [facility] Addiction consult Begin to explore longer term residential treatment options. Medications reviewed with pt and adjusted --Gabapentin increase to 300 mg tid --Amlodipine 5 mg daily --Nicotine Patch/Gum --Follow up xray of foot (injured spring 2022) 04/30/23 Decrease Gabapentin-slurring of speech Ibuprofen prn pain Sertraline 25 mg daily 05/01/23 Increase Seroquel to 100 mg tid prn Increase Chlorpromazine to 150 mg tid Team will help him apply to [facility] 05/02/23 continue treatment plan increase seroqule to 125 mg TID prn anxiety Patient educated on: diagnosis, medication risk/benefits, substance abuse and therapeutic strategies Informed Consent: understands and further education needed Reason for continued inpatient stay Substantial Risk for: harm to self, inability to function and rapid decompensation Time Spent With Patient Time: Total time managing care of this patient today ____ minutes.
[2023-05-03] MEDS: hydrOXYzine HCL 25 MG TABLET PO ×2 (15:50→21:13)
[2023-05-03] MEDS: QUEtiapine Fumarate 25 MG TABLET 125 MG PO ×2 (15:50→19:08)
[2023-05-03] MEDS: Ibuprofen 800 MG TABLET PO (19:12)
[2023-05-03 21:00] VITALS: BP 138/84; PULSE 94; RESP 18; TEMP 36.7; O2SAT 97
[2023-05-03] MEDS: Prazosin HCL 1 MG CAPSULE 2 MG PO (21:10)
[2023-05-03] MEDS: Atorvastatin Calcium 10 MG TABLET PO (21:10)
[2023-05-03] MEDS: Melatonin 3 MG TABLET 9 MG PO (23:40)
[2023-05-04] MEDS: Levothyroxine Sodium 25 MCG TABLET PO (06:27)
[2023-05-04 08:10] VITALS: BP 113/70; PULSE 99; RESP 16; TEMP 36.2; O2SAT 96
[2023-05-04] MEDS: chlorproMAZINE HCl 25 MG TABLET 150 MG PO ×3 (08:13→20:01)
[2023-05-04] MEDS: Cyanocobalamin (Vitamin B-12) 500 MCG TABLET PO (08:13)
[2023-05-04] MEDS: busPIRone HCl 5 MG TABLET 15 MG PO ×3 (08:14→19:56)
[2023-05-04] MEDS: Folic Acid 1 MG TABLET PO (08:14)
[2023-05-04] MEDS: Omeprazole 20 MG CAPSULE.DR PO (08:14)
[2023-05-04] MEDS: Sertraline HCL 25 MG TABLET PO (08:14)
[2023-05-04] MEDS: amLODIPine Besylate 5 MG TABLET PO (08:14)
[2023-05-04] MEDS: Thiamine HCL 100 MG TABLET PO (08:14)
[2023-05-04] MEDS: Ferrous Sulfate 324 MG TABLET.DR PO (08:15)
[2023-05-04] MEDS: Metoprolol Succinate ER 25 MG TAB.ER.24H PO (08:15)
[2023-05-04] MEDS: buPROPion HCL 75 MG TABLET PO (08:15)
[2023-05-04] MEDS: Multivitamin TABLET 1 TAB PO (08:15)
[2023-05-04] MEDS: QUEtiapine Fumarate 25 MG TABLET 125 MG PO ×2 (08:15→19:01)
[2023-05-04] MEDS: Nicotine 21 MG PATCH.TD24 TRANSDERMA (08:20)
[2023-05-04] MEDS: LORazepam 1 MG TABLET PO (08:30)
[2023-05-04] MEDS: Gabapentin 100 MG CAPSULE PO ×3 (08:31→19:57)
[2023-05-04] MEDS: Lidocaine 4 % Patch ADH..PATCH 1 PATCH TRANSDERMA (08:31)
[2023-05-04] MEDS: Ibuprofen 800 MG TABLET PO ×2 (11:13→19:35)
[2023-05-04 11:20] VITALS: BP 102/56; PULSE 94; RESP 18; O2SAT 96
--- NOTE | 2023-05-04 12:30 | PC.NURSE ---
Around 11:15AM pt reported he fell in his bathroom. Pt reported fall was unwitnessed and occurred while he was trying to get up off the toilet. Pt stated that the low toilet height and his neuropathy were the cause of his fall. Pt stated he landed on his buttocks, and denied hitting any other part of his body including his head. Pt alert and oriented. No visible signs of injury. VS obtained. OTILIA Louie made aware.
[2023-05-04] MEDS: Acetaminophen 325 MG TABLET 650 MG PO (13:12)
--- NOTE | 2023-05-04 15:20 | P.PNPSI_ITS ---
Subjective Subjective Date of Service: 05/04/23 Reason For Visit: ETOH,STATES AUD/VISUAL HALLUCINATIONS PER EMS Subjective Notes: Conditional Voluntary Healthcare Proxy: No Guardianship: No Medical Problems Affecting Mental Status: No Interim History: I feel like I need an advocate to tell you people what I need. I don't need addiction treatment. I need a job and a place to live. I can do sobriety on my own. [facility] will not work for me. Discussed needing a rest home, [place] [facility], room. Discussed the poor quality of programs locally. No family to fall back on. Needs a room to rent and work to get a check. Reports interrupted sleep Reports to nursing today an increase in neuropathy sx , reports unobserved fall to team in bathroom, legs gave out. VS 102/56 94, 96% 18 after reported fall with no sx injury. Medication Compliance: Yes Side effects from medications: No Attending Groups: Intermittent Review of Systems Acute medical concerns: No Medical Review of Systems: unchanged Mental Status Exam Mental Status Exam Patient Appearance: Well Grooomed and Appropriate Patient Orientation: Person, Place, Time and Situation Level of Consciousness: Alert Patient Behavior: Talkative and Good Eye Contact Mood Description: Depressed Affect Description: Flat Patient Cognition Impaired: No Ability to Follow Directions: Fair Speech Pattern: Spontaneous Speech Memory Description: Episodic Impaired Hallucinations: None Delusions: Not Present Thought Process: Intact and Goal Oriented Thought Content: positive for Intact and positive for Goal Oriented Judgement: Fair Diagnostics Vital Signs (24Hr): Vital Signs - 24 hr 05/03/23 21:00 05/04/23 08:10 05/04/23 11:20 Temperature 98.1 F 97.1 F Pulse Rate 94 99 94 Respiratory Rate 18 16 18 Blood Pressure 138/84 113/70 102/56 L Pulse Oximetry 97 96 96 Oxygen Delivery Method Room Air Room Air Room Air BMI result Body Mass Index 25.2 Labs 04/27/23 15:02 04/27/23 15:02 Imaging Radiology Impressions: ITS Impressions Chest X-Ray 04/27/23 15:21 IMPRESSION: No acute cardiopulmonary process. Foot X-Ray 04/29/23 10:33 IMPRESSION: Fracture of the distal right fibula with evidence of some healing changes. Small lucency in the fifth metatarsal head on one view may reflect a small fracture or spurring. Degenerative changes. Medications Medications Current Medications Acetaminophen (Acetaminophen 325 Mg Tablet) 650 mg PO Q6H PRN PRN Reason: Headache/Pain Mild Scale (1-3) Last Admin: 05/04/23 13:12 Dose: 650 mg Al Hydroxide/Mg Hydroxide (Magnesium Hydrox/Alum Hydrox 30 Ml Oral.Susp) 30 ml PO Q6H PRN PRN Reason: Heartburn/Nausea Albuterol Sulfate (Albuterol Sulfate 90 Mcg 8 Gm Inhaler) 2 puff INHALE Q4H PRN PRN Reason: wheeze Last Admin: 05/01/23 22:54 Dose: 2 puff Amlodipine Besylate (Amlodipine Besylate 5 Mg Tablet) 5 mg PO DAILY [facility]; Protocol Last Admin: 05/04/23 08:14 Dose: 5 mg Atorvastatin Calcium (Atorvastatin Calcium 10 Mg Tablet) 10 mg PO BEDTIME [facility] Last Admin: 05/03/23 21:10 Dose: 10 mg Benztropine Mesylate (Benztropine Mesylate 1 Mg Tablet) 1 mg PO BID PRN PRN Reason: Extrapyramidal Effects/Symptoms Bupropion HCl (Bupropion Hcl 75 Mg Tablet) 75 mg PO DAILY [facility] Last Admin: 05/04/23 08:15 Dose: 75 mg Buspirone HCl (Buspirone Hcl 5 Mg Tablet) 15 mg PO TID [facility] Last Admin: 05/04/23 14:13 Dose: 15 mg Chlorpromazine HCl (Chlorpromazine Hcl 100 Mg Tablet) 200 mg PO BEDTIME [facility] Last Admin: 05/03/23 23:40 Dose: 200 mg Chlorpromazine HCl (Chlorpromazine Hcl 25 Mg Tablet) 150 mg PO TID [facility] Last Admin: 05/04/23 14:14 Dose: 150 mg Cyanocobalamin (Cyanocobalamin (Vitamin B-12) 500 Mcg Tablet) 500 mcg PO DAILY [facility] Last Admin: 05/04/23 08:13 Dose: 500 mcg Ferrous Sulfate (Ferrous Sulfate 324 Mg Tablet.Dr) 324 mg PO DAILY [facility] Last Admin: 05/04/23 08:15 Dose: 324 mg Folic Acid (Folic Acid 1 Mg Tablet) 1 mg PO DAILY [facility] Last Admin: 05/04/23 08:14 Dose: 1 mg Gabapentin (Gabapentin 100 Mg Capsule) 100 mg PO TID [facility] Last Admin: 05/04/23 14:14 Dose: 100 mg Hydroxyzine HCl (Hydroxyzine Hcl 25 Mg Tablet) 25 mg PO Q6H PRN PRN Reason: Anxiety Last Admin: 05/03/23 21:13 Dose: 25 mg Ibuprofen (Ibuprofen 800 Mg Tablet) 800 mg PO Q8H PRN PRN Reason: Pain, Mild (Pain Scale 1-3) Last Admin: 05/04/23 11:13 Dose: 800 mg Levothyroxine Sodium (Levothyroxine Sodium 25 Mcg Tablet) 25 mcg PO DAILY@0700 [facility] Last Admin: 05/04/23 06:27 Dose: 25 mcg Lidocaine (Lidocaine 4 % Patch Adh..Patch) 1 patch TRANSDERMA DAILY [facility] Last Admin: 05/04/23 08:31 Dose: 1 patch Magnesium Hydroxide (Milk Of Magnesia 30 Ml Oral.Susp) 30 ml PO DAILY PRN PRN Reason: Constipation Magnesium Hydroxide (Milk Of Magnesia 30 Ml Oral.Susp) 30 ml PO DAILY PRN PRN Reason: constipation Melatonin (Melatonin 3 Mg Tablet) 9 mg PO DAILY PRN PRN Reason: Insomnia Last Admin: 05/03/23 23:40 Dose: 9 mg Metoprolol Succinate (Metoprolol Succinate Er 25 Mg Tab.Er.24h) 25 mg PO DAILY [facility]; Protocol Last Admin: 05/04/23 08:15 Dose: 25 mg Multivitamins/Vitamin C (Multivitamin Tablet) 1 tab PO DAILY [facility] Last Admin: 05/04/23 08:15 Dose: 1 tab Nicotine (Nicotine 21 Mg Patch.Td24) 21 mg TRANSDERMA DAILY [facility] Last Admin: 05/04/23 08:20 Dose: 21 mg Nicotine Polacrilex (Nicotine Polacrilex 2 Mg Gum) 4 mg BUCCAL Q2H PRN PRN Reason: Nicotine Cravings Last Admin: 05/03/23 19:50 Dose: 4 mg Omeprazole (Omeprazole 20 Mg Capsule.Dr) 20 mg PO DAILY [facility] Last Admin: 05/04/23 08:14 Dose: 20 mg Prazosin HCl (Prazosin Hcl 1 Mg Capsule) 2 mg PO BEDTIME [facility]; Protocol Last Admin: 05/03/23 21:10 Dose: 2 mg Quetiapine Fumarate (Quetiapine Fumarate 25 Mg Tablet) 125 mg PO TID PRN PRN Reason: Anxiety Last Admin: 05/04/23 08:15 Dose: 125 mg Sertraline HCl (Sertraline Hcl 25 Mg Tablet) 25 mg PO DAILY [facility] Last Admin: 05/04/23 08:14 Dose: 25 mg Thiamine HCl (Thiamine Hcl 100 Mg Tablet) 100 mg PO DAILY [facility] Last Admin: 05/04/23 08:14 Dose: 100 mg Allergies Allergies Allergy/AdvReac Type Severity Reaction Status Date / Time aspirin [ASA] Allergy Unknown FACIAL Verified 04/14/23 09:16 SWELLING Penicillins [PENICILLINS] Allergy Unknown HIVES Verified 04/14/23 09:16 trazodone Allergy Anaphylaxis Verified 04/14/23 09:16 tramadol [TRAMADOL] AdvReac Unknown NAUSEA & Verified 04/14/23 09:16 VOMITING Assessment & Plan Assessment & Plan (1) Polysubstance use disorder: Status: Acute Code(s): F19.90 - Other psychoactive substance use, unspecified, uncomplicated (2) Schizoaffective disorder: Status: Acute Code(s): F25.9 - Schizoaffective disorder, unspecified (3) Alcohol use disorder, severe, dependence: Status: Acute Code(s): F10.20 - Alcohol dependence, uncomplicated Plan 57 yo male, history of schizoaffective disorder, polysubstance use disorder, alcohol use disorder, returns after recent discharge. Pt reports he began alcohol use upon discharge and could not organize his meds to take them correctly. Pt was asked to leave his living situation and today asks to return to Valium/Xanax and be placed in a nursing facility. Pt accepting of his treatment plan. Benzodiazepines will be used per [facility] only. Plan: Lorazepam detox per [facility] Addiction consult Begin to explore longer term residential treatment options. Medications reviewed with pt and adjusted --Gabapentin increase to 300 mg tid --Amlodipine 5 mg daily --Nicotine Patch/Gum --Follow up xray of foot (injured spring 2022) 04/30/23 Decrease Gabapentin-slurring of speech Ibuprofen prn pain Sertraline 25 mg daily 05/01/23 Increase Seroquel to 100 mg tid prn Increase Chlorpromazine to 150 mg tid Team will help him apply to [facility] 05/02/23 continue treatment plan increase seroqule to 125 mg TID prn anxiety 05/04/23 Discharge planning. Refusing of referrals. Patient educated on: therapeutic strategies Informed Consent: understands Reason for continued inpatient stay Substantial Risk for: rapid decompensation and med/psych decompensation Time Spent With Patient Time: Total time managing care of this patient today ____ minutes.
[2023-05-04] MEDS: hydrOXYzine HCL 25 MG TABLET PO (19:02)
[2023-05-04 19:07] VITALS: BP 105/67; PULSE 97; RESP 16; TEMP 36.4; O2SAT 97
[2023-05-04] MEDS: Nicotine Polacrilex 2 MG GUM 4 MG BUCCAL (19:34)
[2023-05-04] MEDS: Atorvastatin Calcium 10 MG TABLET PO (19:56)
[2023-05-04] MEDS: Prazosin HCL 1 MG CAPSULE 2 MG PO (19:58)
[2023-05-04] MEDS: Melatonin 3 MG TABLET 9 MG PO (22:17)
[2023-05-05] MEDS: hydrOXYzine HCL 25 MG TABLET PO ×3 (02:20→19:30)
[2023-05-05] MEDS: chlorproMAZINE HCl 100 MG TABLET 200 MG PO (02:20)
[2023-05-05 08:00] VITALS: BP 118/75; PULSE 90; RESP 18; TEMP 36.3; O2SAT 97
[2023-05-05] MEDS: Nicotine 21 MG PATCH.TD24 TRANSDERMA (08:03)
[2023-05-05] MEDS: QUEtiapine Fumarate 25 MG TABLET 125 MG PO ×3 (08:04→17:29)
[2023-05-05] MEDS: chlorproMAZINE HCl 25 MG TABLET 150 MG PO ×3 (08:05→21:17)
[2023-05-05] MEDS: Ferrous Sulfate 324 MG TABLET.DR PO (08:06)
[2023-05-05] MEDS: Omeprazole 20 MG CAPSULE.DR PO (08:06)
[2023-05-05] MEDS: Metoprolol Succinate ER 25 MG TAB.ER.24H PO (08:06)
[2023-05-05] MEDS: Multivitamin TABLET 1 TAB PO (08:06)
[2023-05-05] MEDS: Folic Acid 1 MG TABLET PO (08:07)
[2023-05-05] MEDS: Gabapentin 100 MG CAPSULE PO ×3 (08:07→21:17)
[2023-05-05] MEDS: Levothyroxine Sodium 25 MCG TABLET PO (08:07)
[2023-05-05] MEDS: Sertraline HCL 25 MG TABLET PO (08:07)
[2023-05-05] MEDS: busPIRone HCl 5 MG TABLET 15 MG PO ×3 (08:08→21:17)
[2023-05-05] MEDS: Thiamine HCL 100 MG TABLET PO (08:08)
[2023-05-05] MEDS: Cyanocobalamin (Vitamin B-12) 500 MCG TABLET PO (08:08)
[2023-05-05] MEDS: amLODIPine Besylate 5 MG TABLET PO (08:09)
[2023-05-05] MEDS: buPROPion HCL 75 MG TABLET PO (08:09)
[2023-05-05] MEDS: Ibuprofen 800 MG TABLET PO ×2 (08:13→17:26)
[2023-05-05] MEDS: Nicotine Polacrilex 2 MG GUM 4 MG BUCCAL ×2 (12:18→20:11)
[2023-05-05 18:00] VITALS: BP 122/70; PULSE 90; RESP 18; TEMP 36.7; O2SAT 97
--- NOTE | 2023-05-05 18:24 | HO.PSYCHPN ---
Subjective Subjective Date of Service: 05/05/23 Reason For Visit: ETOH,STATES AUD/VISUAL HALLUCINATIONS PER EMS Subjective Notes: Conditional Voluntary Healthcare Proxy: No Guardianship: No Medical Problems Affecting Mental Status: No Interim History: Visable in milieu. Attending groups, interacting with peers. Continues to look at housing options, continues to struggle with why housing cannot be presented to him. I need an advocate who will make you give me what I want. Ongoing education provided regarding resources which are available to work with. Medication Compliance: Yes Side effects from medications: No Attending Groups: Yes Review of Systems Acute medical concerns: No Medical Review of Systems: unchanged Mental Status Exam Mental Status Exam Patient Appearance: Well Grooomed and Appropriate Patient Orientation: Person, Place, Time and Situation Level of Consciousness: Alert Patient Behavior: Talkative and Good Eye Contact Mood Description: Depressed Affect Description: Flat Patient Cognition Impaired: No Ability to Follow Directions: Fair Speech Pattern: Spontaneous Speech Memory Description: Episodic Impaired Hallucinations: None Delusions: Not Present Thought Process: Intact and Goal Oriented Thought Content: positive for Intact and positive for Goal Oriented Judgement: Fair Diagnostics Vital Signs (24Hr): Vital Signs - 24 hr 05/04/23 19:07 05/05/23 08:00 Temperature 97.6 F 97.4 F Pulse Rate 97 90 Respiratory Rate 16 18 Blood Pressure 105/67 118/75 Pulse Oximetry 97 97 Oxygen Delivery Method Room Air Room Air BMI result Body Mass Index 25.2 Labs 04/27/23 15:02 04/27/23 15:02 Imaging Radiology Impressions: ITS Impressions Chest X-Ray 04/27/23 15:21 IMPRESSION: No acute cardiopulmonary process. Foot X-Ray 04/29/23 10:33 IMPRESSION: Fracture of the distal right fibula with evidence of some healing changes. Small lucency in the fifth metatarsal head on one view may reflect a small fracture or spurring. Degenerative changes. Medications Medications Current Medications Acetaminophen (Acetaminophen 325 Mg Tablet) 650 mg PO Q6H PRN PRN Reason: Headache/Pain Mild Scale (1-3) Last Admin: 05/04/23 13:12 Dose: 650 mg Al Hydroxide/Mg Hydroxide (Magnesium Hydrox/Alum Hydrox 30 Ml Oral.Susp) 30 ml PO Q6H PRN PRN Reason: Heartburn/Nausea Albuterol Sulfate (Albuterol Sulfate 90 Mcg 8 Gm Inhaler) 2 puff INHALE Q4H PRN PRN Reason: wheeze Last Admin: 05/01/23 22:54 Dose: 2 puff Amlodipine Besylate (Amlodipine Besylate 5 Mg Tablet) 5 mg PO DAILY [facility]; Protocol Last Admin: 05/05/23 08:09 Dose: 5 mg Atorvastatin Calcium (Atorvastatin Calcium 10 Mg Tablet) 10 mg PO BEDTIME [facility] Last Admin: 05/04/23 19:56 Dose: 10 mg Benztropine Mesylate (Benztropine Mesylate 1 Mg Tablet) 1 mg PO BID PRN PRN Reason: Extrapyramidal Effects/Symptoms Bupropion HCl (Bupropion Hcl 75 Mg Tablet) 75 mg PO DAILY [facility] Last Admin: 05/05/23 08:09 Dose: 75 mg Buspirone HCl (Buspirone Hcl 5 Mg Tablet) 15 mg PO TID [facility] Last Admin: 05/05/23 14:03 Dose: 15 mg Chlorpromazine HCl (Chlorpromazine Hcl 100 Mg Tablet) 200 mg PO BEDTIME [facility] Last Admin: 05/05/23 02:20 Dose: 200 mg Chlorpromazine HCl (Chlorpromazine Hcl 25 Mg Tablet) 150 mg PO TID [facility] Last Admin: 05/05/23 14:02 Dose: 150 mg Cyanocobalamin (Cyanocobalamin (Vitamin B-12) 500 Mcg Tablet) 500 mcg PO DAILY [facility] Last Admin: 05/05/23 08:08 Dose: 500 mcg Ferrous Sulfate (Ferrous Sulfate 324 Mg Tablet.Dr) 324 mg PO DAILY [facility] Last Admin: 05/05/23 08:06 Dose: 324 mg Folic Acid (Folic Acid 1 Mg Tablet) 1 mg PO DAILY [facility] Last Admin: 05/05/23 08:07 Dose: 1 mg Gabapentin (Gabapentin 100 Mg Capsule) 100 mg PO TID [facility] Last Admin: 05/05/23 14:02 Dose: 100 mg Hydroxyzine HCl (Hydroxyzine Hcl 25 Mg Tablet) 25 mg PO Q6H PRN PRN Reason: Anxiety Last Admin: 05/05/23 10:37 Dose: 25 mg Ibuprofen (Ibuprofen 800 Mg Tablet) 800 mg PO Q8H PRN PRN Reason: Pain, Mild (Pain Scale 1-3) Last Admin: 05/05/23 17:26 Dose: 800 mg Levothyroxine Sodium (Levothyroxine Sodium 25 Mcg Tablet) 25 mcg PO DAILY@0700 [facility] Last Admin: 05/05/23 08:07 Dose: 25 mcg Lidocaine (Lidocaine 4 % Patch Adh..Patch) 1 patch TRANSDERMA DAILY [facility] Last Admin: 05/05/23 08:46 Dose: Not Given Magnesium Hydroxide (Milk Of Magnesia 30 Ml Oral.Susp) 30 ml PO DAILY PRN PRN Reason: Constipation Magnesium Hydroxide (Milk Of Magnesia 30 Ml Oral.Susp) 30 ml PO DAILY PRN PRN Reason: constipation Melatonin (Melatonin 3 Mg Tablet) 9 mg PO DAILY PRN PRN Reason: Insomnia Last Admin: 05/04/23 22:17 Dose: 9 mg Metoprolol Succinate (Metoprolol Succinate Er 25 Mg Tab.Er.24h) 25 mg PO DAILY [facility]; Protocol Last Admin: 05/05/23 08:06 Dose: 25 mg Multivitamins/Vitamin C (Multivitamin Tablet) 1 tab PO DAILY [facility] Last Admin: 05/05/23 08:06 Dose: 1 tab Nicotine (Nicotine 21 Mg Patch.Td24) 21 mg TRANSDERMA DAILY [facility] Last Admin: 05/05/23 08:03 Dose: 21 mg Nicotine Polacrilex (Nicotine Polacrilex 2 Mg Gum) 4 mg BUCCAL Q2H PRN PRN Reason: Nicotine Cravings Last Admin: 05/05/23 12:18 Dose: 4 mg Omeprazole (Omeprazole 20 Mg Capsule.Dr) 20 mg PO DAILY [facility] Last Admin: 05/05/23 08:06 Dose: 20 mg Prazosin HCl (Prazosin Hcl 1 Mg Capsule) 2 mg PO BEDTIME [facility]; Protocol Last Admin: 05/04/23 19:58 Dose: 2 mg Quetiapine Fumarate (Quetiapine Fumarate 25 Mg Tablet) 125 mg PO TID PRN PRN Reason: Anxiety Last Admin: 05/05/23 17:29 Dose: 125 mg Sertraline HCl (Sertraline Hcl 25 Mg Tablet) 25 mg PO DAILY [facility] Last Admin: 05/05/23 08:07 Dose: 25 mg Thiamine HCl (Thiamine Hcl 100 Mg Tablet) 100 mg PO DAILY [facility] Last Admin: 05/05/23 08:08 Dose: 100 mg Allergies Allergies Allergy/AdvReac Type Severity Reaction Status Date / Time aspirin [ASA] Allergy Unknown FACIAL Verified 04/14/23 09:16 SWELLING Penicillins [PENICILLINS] Allergy Unknown HIVES Verified 04/14/23 09:16 trazodone Allergy Anaphylaxis Verified 04/14/23 09:16 tramadol [TRAMADOL] AdvReac Unknown NAUSEA & Verified 04/14/23 09:16 VOMITING Assessment & Plan Assessment & Plan (1) Polysubstance use disorder: Status: Acute Code(s): F19.90 - Other psychoactive substance use, unspecified, uncomplicated (2) Schizoaffective disorder: Status: Acute Code(s): F25.9 - Schizoaffective disorder, unspecified (3) Alcohol use disorder, severe, dependence: Status: Acute Code(s): F10.20 - Alcohol dependence, uncomplicated Plan 57 yo male, history of schizoaffective disorder, polysubstance use disorder, alcohol use disorder, returns after recent discharge. Pt reports he began alcohol use upon discharge and could not organize his meds to take them correctly. Pt was asked to leave his living situation and today [facility] and be placed in a nursing facility. Pt accepting of his treatment plan. Benzodiazepines will be used per [facility] only. Plan: Lorazepam detox per [facility] Addiction consult Begin to explore longer term residential treatment options. Medications reviewed with pt and adjusted --Gabapentin increase to 300 mg tid --Amlodipine 5 mg daily --Nicotine Patch/Gum --Follow up xray of foot (injured spring 2022) 04/30/23 Decrease Gabapentin-slurring of speech Ibuprofen prn pain Sertraline 25 mg daily 05/01/23 Increase Seroquel to 100 mg tid prn Increase Chlorpromazine to 150 mg tid Team will help him apply to [facility] 05/02/23 continue treatment plan increase seroqule to 125 mg TID prn anxiety 05/04/23 Discharge planning. Refusing of referrals. 05/05/23 Continue to educate, discuss resource availability, and discharge planning Patient educated on: therapeutic strategies Informed Consent: further education needed Reason for continued inpatient stay Substantial Risk for: med/psych decompensation Time Spent With Patient Time: Total time managing care of this patient today ____ minutes.
[2023-05-05] MEDS: Atorvastatin Calcium 10 MG TABLET PO (21:17)
[2023-05-05] MEDS: Prazosin HCL 1 MG CAPSULE 2 MG PO (21:17)
[2023-05-06] MEDS: QUEtiapine Fumarate 25 MG TABLET 125 MG PO ×3 (00:49→13:55)
[2023-05-06] MEDS: hydrOXYzine HCL 25 MG TABLET PO ×4 (00:49→22:09)
[2023-05-06] MEDS: Ibuprofen 800 MG TABLET PO ×2 (00:50→19:09)
[2023-05-06] MEDS: chlorproMAZINE HCl 100 MG TABLET 200 MG PO (00:50)
[2023-05-06 08:10] VITALS: BP 130/88; PULSE 89; RESP 18; TEMP 33.7; O2SAT 95
[2023-05-06] MEDS: Nicotine 21 MG PATCH.TD24 TRANSDERMA (08:21)
[2023-05-06] MEDS: chlorproMAZINE HCl 25 MG TABLET 150 MG PO ×3 (08:22→19:34)
[2023-05-06] MEDS: Folic Acid 1 MG TABLET PO (08:23)
[2023-05-06] MEDS: Cyanocobalamin (Vitamin B-12) 500 MCG TABLET PO (08:23)
[2023-05-06] MEDS: Levothyroxine Sodium 25 MCG TABLET PO (08:23)
[2023-05-06] MEDS: busPIRone HCl 5 MG TABLET 15 MG PO ×3 (08:23→22:08)
[2023-05-06] MEDS: Gabapentin 100 MG CAPSULE PO ×3 (08:23→22:09)
[2023-05-06] MEDS: Sertraline HCL 25 MG TABLET PO (08:24)
[2023-05-06] MEDS: Metoprolol Succinate ER 25 MG TAB.ER.24H PO (08:24)
[2023-05-06] MEDS: Thiamine HCL 100 MG TABLET PO (08:25)
[2023-05-06] MEDS: buPROPion HCL 75 MG TABLET PO (08:25)
[2023-05-06] MEDS: amLODIPine Besylate 5 MG TABLET PO (08:26)
[2023-05-06] MEDS: Omeprazole 20 MG CAPSULE.DR PO (08:26)
[2023-05-06] MEDS: Multivitamin TABLET 1 TAB PO (08:27)
[2023-05-06] MEDS: Ferrous Sulfate 324 MG TABLET.DR PO (08:27)
--- NOTE | 2023-05-06 13:01 | P.PNPSI_ITS ---
Subjective Subjective Date of Service: 05/06/23 Reason For Visit: ETOH,STATES AUD/VISUAL HALLUCINATIONS PER EMS Subjective Notes: Conditional Voluntary Healthcare Proxy: No Guardianship: No Medical Problems Affecting Mental Status: No Interim History: My foot hurts I cannot sleep I am anxious I need more medicine for pain and anxiety Attending groups and participating-reports he is finding group helpful. Review of medications, options for sleep, anxiety. Discussed parameters recommended by medicine for pain mgt. Discussed OP referral to orthopedics upon discharge Medication Compliance: Yes Side effects from medications: No Attending Groups: Yes Review of Systems Acute medical concerns: No Mental Status Exam Mental Status Exam Patient Appearance: Well Grooomed and Appropriate Patient Orientation: Person, Place, Time and Situation Level of Consciousness: Alert Patient Behavior: Talkative and Good Eye Contact Mood Description: Depressed Affect Description: Flat Patient Cognition Impaired: No Ability to Follow Directions: Fair Speech Pattern: Spontaneous Speech Memory Description: Episodic Impaired Hallucinations: None Delusions: Not Present Thought Process: Intact and Goal Oriented Thought Content: positive for Intact and positive for Goal Oriented Judgement: Fair Diagnostics Vital Signs (24Hr): Vital Signs - 24 hr 05/05/23 18:00 05/06/23 08:10 Temperature 98.0 F 92.7 F L Pulse Rate 90 89 Respiratory Rate 18 18 Blood Pressure 122/70 130/88 Pulse Oximetry 97 95 Oxygen Delivery Method Room Air Room Air BMI result Body Mass Index 25.2 Labs 04/27/23 15:02 04/27/23 15:02 Imaging Radiology Impressions: ITS Impressions Chest X-Ray 04/27/23 15:21 IMPRESSION: No acute cardiopulmonary process. Foot X-Ray 04/29/23 10:33 IMPRESSION: Fracture of the distal right fibula with evidence of some healing changes. Small lucency in the fifth metatarsal head on one view may reflect a small fracture or spurring. Degenerative changes. Medications Medications Current Medications Acetaminophen (Acetaminophen 325 Mg Tablet) 650 mg PO Q6H PRN PRN Reason: Headache/Pain Mild Scale (1-3) Last Admin: 05/04/23 13:12 Dose: 650 mg Al Hydroxide/Mg Hydroxide (Magnesium Hydrox/Alum Hydrox 30 Ml Oral.Susp) 30 ml PO Q6H PRN PRN Reason: Heartburn/Nausea Albuterol Sulfate (Albuterol Sulfate 90 Mcg 8 Gm Inhaler) 2 puff INHALE Q4H PRN PRN Reason: wheeze Last Admin: 05/01/23 22:54 Dose: 2 puff Amlodipine Besylate (Amlodipine Besylate 5 Mg Tablet) 5 mg PO DAILY [facility]; Protocol Last Admin: 05/06/23 08:26 Dose: 5 mg Atorvastatin Calcium (Atorvastatin Calcium 10 Mg Tablet) 10 mg PO BEDTIME [facility] Last Admin: 05/05/23 21:17 Dose: 10 mg Benztropine Mesylate (Benztropine Mesylate 1 Mg Tablet) 1 mg PO BID PRN PRN Reason: Extrapyramidal Effects/Symptoms Bupropion HCl (Bupropion Hcl 75 Mg Tablet) 75 mg PO DAILY [facility] Last Admin: 05/06/23 08:25 Dose: 75 mg Buspirone HCl (Buspirone Hcl 5 Mg Tablet) 15 mg PO TID [facility] Last Admin: 05/06/23 08:23 Dose: 15 mg Chlorpromazine HCl (Chlorpromazine Hcl 100 Mg Tablet) 200 mg PO BEDTIME [facility] Last Admin: 05/06/23 00:50 Dose: 200 mg Chlorpromazine HCl (Chlorpromazine Hcl 25 Mg Tablet) 150 mg PO TID [facility] Last Admin: 05/06/23 08:22 Dose: 150 mg Cyanocobalamin (Cyanocobalamin (Vitamin B-12) 500 Mcg Tablet) 500 mcg PO DAILY [facility] Last Admin: 05/06/23 08:23 Dose: 500 mcg Ferrous Sulfate (Ferrous Sulfate 324 Mg Tablet.Dr) 324 mg PO DAILY [facility] Last Admin: 05/06/23 08:27 Dose: 324 mg Folic Acid (Folic Acid 1 Mg Tablet) 1 mg PO DAILY [facility] Last Admin: 05/06/23 08:23 Dose: 1 mg Gabapentin (Gabapentin 100 Mg Capsule) 100 mg PO TID [facility] Last Admin: 05/06/23 08:23 Dose: 100 mg Hydroxyzine HCl (Hydroxyzine Hcl 25 Mg Tablet) 25 mg PO Q6H PRN PRN Reason: Anxiety Last Admin: 05/06/23 09:33 Dose: 25 mg Ibuprofen (Ibuprofen 800 Mg Tablet) 800 mg PO Q8H PRN PRN Reason: Pain, Mild (Pain Scale 1-3) Last Admin: 05/06/23 00:50 Dose: 800 mg Levothyroxine Sodium (Levothyroxine Sodium 25 Mcg Tablet) 25 mcg PO DAILY@0700 [facility] Last Admin: 05/06/23 08:23 Dose: 25 mcg Lidocaine (Lidocaine 4 % Patch Adh..Patch) 1 patch TRANSDERMA DAILY [facility] Last Admin: 05/06/23 12:22 Dose: Not Given Magnesium Hydroxide (Milk Of Magnesia 30 Ml Oral.Susp) 30 ml PO DAILY PRN PRN Reason: Constipation Magnesium Hydroxide (Milk Of Magnesia 30 Ml Oral.Susp) 30 ml PO DAILY PRN PRN Reason: constipation Melatonin (Melatonin 3 Mg Tablet) 9 mg PO DAILY PRN PRN Reason: Insomnia Last Admin: 05/04/23 22:17 Dose: 9 mg Metoprolol Succinate (Metoprolol Succinate Er 25 Mg Tab.Er.24h) 25 mg PO DAILY [facility]; Protocol Last Admin: 05/06/23 08:24 Dose: 25 mg Mirtazapine (Mirtazapine 15 Mg Tablet) 15 mg PO BEDTIME [facility] Multivitamins/Vitamin C (Multivitamin Tablet) 1 tab PO DAILY [facility] Last Admin: 05/06/23 08:27 Dose: 1 tab Nicotine (Nicotine 21 Mg Patch.Td24) 21 mg TRANSDERMA DAILY [facility] Last Admin: 05/06/23 08:21 Dose: 21 mg Nicotine Polacrilex (Nicotine Polacrilex 2 Mg Gum) 4 mg BUCCAL Q2H PRN PRN Reason: Nicotine Cravings Last Admin: 05/05/23 20:11 Dose: 4 mg Omeprazole (Omeprazole 20 Mg Capsule.Dr) 20 mg PO DAILY [facility] Last Admin: 05/06/23 08:26 Dose: 20 mg Prazosin HCl (Prazosin Hcl 1 Mg Capsule) 2 mg PO BEDTIME [facility]; Protocol Last Admin: 05/05/23 21:17 Dose: 2 mg Quetiapine Fumarate (Quetiapine Fumarate 25 Mg Tablet) 125 mg PO TID PRN PRN Reason: Anxiety Last Admin: 05/06/23 08:25 Dose: 125 mg Sertraline HCl (Sertraline Hcl 25 Mg Tablet) 25 mg PO DAILY [facility] Last Admin: 05/06/23 08:24 Dose: 25 mg Thiamine HCl (Thiamine Hcl 100 Mg Tablet) 100 mg PO DAILY [facility] Last Admin: 05/06/23 08:25 Dose: 100 mg Allergies Allergies Allergy/AdvReac Type Severity Reaction Status Date / Time aspirin [ASA] Allergy Unknown FACIAL Verified 04/14/23 09:16 SWELLING Penicillins [PENICILLINS] Allergy Unknown HIVES Verified 04/14/23 09:16 trazodone Allergy Anaphylaxis Verified 04/14/23 09:16 tramadol [TRAMADOL] AdvReac Unknown NAUSEA & Verified 04/14/23 09:16 VOMITING Assessment & Plan Assessment & Plan (1) Polysubstance use disorder: Status: Acute Code(s): F19.90 - Other psychoactive substance use, unspecified, uncomplicated (2) Schizoaffective disorder: Status: Acute Code(s): F25.9 - Schizoaffective disorder, unspecified (3) Alcohol use disorder, severe, dependence: Status: Acute Code(s): F10.20 - Alcohol dependence, uncomplicated Plan 57 yo male, history of schizoaffective disorder, polysubstance use disorder, alcohol use disorder, returns after recent discharge. Pt reports he began alcohol use upon discharge and could not organize his meds to take them correctly. Pt was asked to leave his living situation and today asks to return to [facility] and be placed in a nursing facility. Pt accepting of his treatment plan. Benzodiazepines will be used per [facility] only. Plan: Lorazepam detox per [facility] Addiction consult Begin to explore longer term residential treatment options. Medications reviewed with pt and adjusted --Gabapentin increase to 300 mg tid --Amlodipine 5 mg daily --Nicotine Patch/Gum --Follow up xray of foot (injured spring 2022) 04/30/23 Decrease Gabapentin-slurring of speech Ibuprofen prn pain Sertraline 25 mg daily 05/01/23 Increase Seroquel to 100 mg tid prn Increase Chlorpromazine to 150 mg tid Team will help him apply to [facility] 05/02/23 continue treatment plan increase seroqule to 125 mg TID prn anxiety 05/04/23 Discharge planning. Refusing of referrals. 05/06/23 Clonidine 0.1 mg tid prn anxiety Remeron 15 mg hs Patient educated on: medication risk/benefits Informed Consent: further education needed Reason for continued inpatient stay Substantial Risk for: rapid decompensation and med/psych decompensation Time Spent With Patient Time: Total time managing care of this patient today ____ minutes.
[2023-05-06] MEDS: cloNIDine HCL 0.1 MG TABLET PO ×2 (16:27→22:09)
[2023-05-06] MEDS: Nicotine Polacrilex 2 MG GUM 4 MG BUCCAL ×2 (18:14→22:24)
[2023-05-06 22:05] VITALS: BP 128/74; PULSE 88; RESP 18; TEMP 36.6
[2023-05-06] MEDS: Atorvastatin Calcium 10 MG TABLET PO (22:08)
[2023-05-06] MEDS: Melatonin 3 MG TABLET 9 MG PO (22:09)
[2023-05-06] MEDS: Mirtazapine 15 MG TABLET PO (22:09)
[2023-05-06] MEDS: Prazosin HCL 1 MG CAPSULE 2 MG PO (22:09)
[2023-05-07] MEDS: chlorproMAZINE HCl 100 MG TABLET 200 MG PO (00:43)
[2023-05-07] MEDS: cloNIDine HCL 0.1 MG TABLET PO ×3 (06:37→19:13)
[2023-05-07] MEDS: hydrOXYzine HCL 25 MG TABLET PO ×3 (06:37→19:13)
[2023-05-07 07:00] VITALS: BMI 26.8
[2023-05-07 08:00] VITALS: BP 124/82; PULSE 103; RESP 18; TEMP 36.3; O2SAT 98
[2023-05-07] MEDS: Nicotine 21 MG PATCH.TD24 TRANSDERMA (08:59)
[2023-05-07] MEDS: amLODIPine Besylate 5 MG TABLET PO (09:00)
[2023-05-07] MEDS: Thiamine HCL 100 MG TABLET PO (09:00)
[2023-05-07] MEDS: Multivitamin TABLET 1 TAB PO (09:00)
[2023-05-07] MEDS: Folic Acid 1 MG TABLET PO (09:01)
[2023-05-07] MEDS: busPIRone HCl 5 MG TABLET 15 MG PO (09:01)
[2023-05-07] MEDS: buPROPion HCL 75 MG TABLET PO (09:01)
[2023-05-07] MEDS: Cyanocobalamin (Vitamin B-12) 500 MCG TABLET PO (09:02)
[2023-05-07] MEDS: Ferrous Sulfate 324 MG TABLET.DR PO (09:02)
[2023-05-07] MEDS: Levothyroxine Sodium 25 MCG TABLET PO (09:02)
[2023-05-07] MEDS: Gabapentin 100 MG CAPSULE PO ×3 (09:03→21:16)
[2023-05-07] MEDS: Sertraline HCL 25 MG TABLET PO (09:03)
[2023-05-07] MEDS: Ibuprofen 800 MG TABLET PO ×2 (09:03→18:19)
[2023-05-07] MEDS: Metoprolol Succinate ER 25 MG TAB.ER.24H PO (09:03)
[2023-05-07] MEDS: Omeprazole 20 MG CAPSULE.DR PO (09:04)
[2023-05-07] MEDS: QUEtiapine Fumarate 25 MG TABLET 125 MG PO ×2 (09:04→18:19)
[2023-05-07] MEDS: chlorproMAZINE HCl 25 MG TABLET 150 MG PO ×3 (09:13→21:14)
[2023-05-07] MEDS: busPIRone HCl 10 MG TABLET 20 MG PO ×2 (14:11→21:15)
[2023-05-07] MEDS: Acetaminophen 325 MG TABLET 650 MG PO (14:12)
--- NOTE | 2023-05-07 18:15 | P.PNPSI_ITS ---
Subjective Subjective Date of Service: 05/07/23 Reason For Visit: ETOH,STATES AUD/VISUAL HALLUCINATIONS PER EMS Subjective Notes: Conditional Voluntary Healthcare Proxy: No Guardianship: No Medical Problems Affecting Mental Status: No Interim History: Has decided that [facility] will be good to trial upon discharge. Anxiety remains high. Clonidine increase to qid Buspirone increase to 20 mg tid Expected discharge early next week. Medication Compliance: Yes Side effects from medications: No Attending Groups: Yes Review of Systems Acute medical concerns: No Medical Review of Systems: unchanged Mental Status Exam Mental Status Exam Patient Appearance: Well Grooomed and Appropriate Patient Orientation: Person, Place, Time and Situation Level of Consciousness: Alert Patient Behavior: Talkative and Good Eye Contact Mood Description: Depressed Affect Description: Flat Patient Cognition Impaired: No Ability to Follow Directions: Fair Speech Pattern: Spontaneous Speech Memory Description: Episodic Impaired Hallucinations: None Delusions: Not Present Thought Process: Intact and Goal Oriented Thought Content: positive for Intact and positive for Goal Oriented Judgement: Fair Diagnostics Vital Signs (24Hr): Vital Signs - 24 hr 05/06/23 22:05 05/07/23 08:00 Temperature 98 F 97.4 F Pulse Rate 88 103 H Respiratory Rate 18 18 Blood Pressure 128/74 124/82 Pulse Oximetry 98 Oxygen Delivery Method Room Air BMI result Body Mass Index 26.8 Labs 04/27/23 15:02 04/27/23 15:02 Imaging Radiology Impressions: ITS Impressions Chest X-Ray 04/27/23 15:21 IMPRESSION: No acute cardiopulmonary process. Foot X-Ray 04/29/23 10:33 IMPRESSION: Fracture of the distal right fibula with evidence of some healing changes. Small lucency in the fifth metatarsal head on one view may reflect a small fracture or spurring. Degenerative changes. Medications Medications Current Medications Acetaminophen (Acetaminophen 325 Mg Tablet) 650 mg PO Q6H PRN PRN Reason: Headache/Pain Mild Scale (1-3) Last Admin: 05/07/23 14:12 Dose: 650 mg Al Hydroxide/Mg Hydroxide (Magnesium Hydrox/Alum Hydrox 30 Ml Oral.Susp) 30 ml PO Q6H PRN PRN Reason: Heartburn/Nausea Albuterol Sulfate (Albuterol Sulfate 90 Mcg 8 Gm Inhaler) 2 puff INHALE Q4H PRN PRN Reason: wheeze Last Admin: 05/01/23 22:54 Dose: 2 puff Amlodipine Besylate (Amlodipine Besylate 5 Mg Tablet) 5 mg PO DAILY [facility]; Protocol Last Admin: 05/07/23 09:00 Dose: 5 mg Atorvastatin Calcium (Atorvastatin Calcium 10 Mg Tablet) 10 mg PO BEDTIME [facility] Last Admin: 05/06/23 22:08 Dose: 10 mg Benztropine Mesylate (Benztropine Mesylate 1 Mg Tablet) 1 mg PO BID PRN PRN Reason: Extrapyramidal Effects/Symptoms Bupropion HCl (Bupropion Hcl 75 Mg Tablet) 75 mg PO DAILY [facility] Last Admin: 05/07/23 09:01 Dose: 75 mg Buspirone HCl (Buspirone Hcl 10 Mg Tablet) 20 mg PO TID [facility] Last Admin: 05/07/23 14:11 Dose: 20 mg Chlorpromazine HCl (Chlorpromazine Hcl 100 Mg Tablet) 200 mg PO BEDTIME [facility] Last Admin: 05/07/23 00:43 Dose: 200 mg Chlorpromazine HCl (Chlorpromazine Hcl 25 Mg Tablet) 150 mg PO TID [facility] Last Admin: 05/07/23 14:11 Dose: 150 mg Clonidine HCl (Clonidine Hcl 0.1 Mg Tablet) 0.1 mg PO QID PRN; Protocol PRN Reason: anxiety Last Admin: 05/07/23 14:11 Dose: 0.1 mg Cyanocobalamin (Cyanocobalamin (Vitamin B-12) 500 Mcg Tablet) 500 mcg PO DAILY [facility] Last Admin: 05/07/23 09:02 Dose: 500 mcg Ferrous Sulfate (Ferrous Sulfate 324 Mg Tablet.Dr) 324 mg PO DAILY [facility] Last Admin: 05/07/23 09:02 Dose: 324 mg Folic Acid (Folic Acid 1 Mg Tablet) 1 mg PO DAILY [facility] Last Admin: 05/07/23 09:01 Dose: 1 mg Gabapentin (Gabapentin 100 Mg Capsule) 100 mg PO TID [facility] Last Admin: 05/07/23 14:11 Dose: 100 mg Hydroxyzine HCl (Hydroxyzine Hcl 25 Mg Tablet) 25 mg PO Q6H PRN PRN Reason: Anxiety Last Admin: 05/07/23 13:03 Dose: 25 mg Ibuprofen (Ibuprofen 800 Mg Tablet) 800 mg PO Q8H PRN PRN Reason: Pain, Mild (Pain Scale 1-3) Last Admin: 05/07/23 09:03 Dose: 800 mg Levothyroxine Sodium (Levothyroxine Sodium 25 Mcg Tablet) 25 mcg PO DAILY@0700 [facility] Last Admin: 05/07/23 09:02 Dose: 25 mcg Lidocaine (Lidocaine 4 % Patch Adh..Patch) 1 patch TRANSDERMA DAILY [facility] Last Admin: 05/07/23 08:59 Dose: Not Given Magnesium Hydroxide (Milk Of Magnesia 30 Ml Oral.Susp) 30 ml PO DAILY PRN PRN Reason: Constipation Magnesium Hydroxide (Milk Of Magnesia 30 Ml Oral.Susp) 30 ml PO DAILY PRN PRN Reason: constipation Melatonin (Melatonin 3 Mg Tablet) 9 mg PO DAILY PRN PRN Reason: Insomnia Last Admin: 05/06/23 22:09 Dose: 9 mg Metoprolol Succinate (Metoprolol Succinate Er 25 Mg Tab.Er.24h) 25 mg PO DAILY [facility]; Protocol Last Admin: 05/07/23 09:03 Dose: 25 mg Mirtazapine (Mirtazapine 15 Mg Tablet) 15 mg PO BEDTIME [facility] Last Admin: 05/06/23 22:09 Dose: 15 mg Multivitamins/Vitamin C (Multivitamin Tablet) 1 tab PO DAILY [facility] Last Admin: 05/07/23 09:00 Dose: 1 tab Nicotine (Nicotine 21 Mg Patch.Td24) 21 mg TRANSDERMA DAILY [facility] Last Admin: 05/07/23 08:59 Dose: 21 mg Nicotine Polacrilex (Nicotine Polacrilex 2 Mg Gum) 4 mg BUCCAL Q2H PRN PRN Reason: Nicotine Cravings Last Admin: 05/06/23 22:24 Dose: 4 mg Omeprazole (Omeprazole 20 Mg Capsule.Dr) 20 mg PO DAILY [facility] Last Admin: 05/07/23 09:04 Dose: 20 mg Prazosin HCl (Prazosin Hcl 1 Mg Capsule) 2 mg PO BEDTIME [facility]; Protocol Last Admin: 05/06/23 22:09 Dose: 2 mg Quetiapine Fumarate (Quetiapine Fumarate 25 Mg Tablet) 125 mg PO TID PRN PRN Reason: Anxiety Last Admin: 05/07/23 09:04 Dose: 125 mg Sertraline HCl (Sertraline Hcl 25 Mg Tablet) 25 mg PO DAILY [facility] Last Admin: 05/07/23 09:03 Dose: 25 mg Thiamine HCl (Thiamine Hcl 100 Mg Tablet) 100 mg PO DAILY [facility] Last Admin: 05/07/23 09:00 Dose: 100 mg Allergies Allergies Allergy/AdvReac Type Severity Reaction Status Date / Time aspirin [ASA] Allergy Unknown FACIAL Verified 04/14/23 09:16 SWELLING Penicillins [PENICILLINS] Allergy Unknown HIVES Verified 04/14/23 09:16 trazodone Allergy Anaphylaxis Verified 04/14/23 09:16 tramadol [TRAMADOL] AdvReac Unknown NAUSEA & Verified 04/14/23 09:16 VOMITING Assessment & Plan Assessment & Plan (1) Polysubstance use disorder: Status: Acute Code(s): F19.90 - Other psychoactive substance use, unspecified, uncomplicated (2) Schizoaffective disorder: Status: Acute Code(s): F25.9 - Schizoaffective disorder, unspecified (3) Alcohol use disorder, severe, dependence: Status: Acute Code(s): F10.20 - Alcohol dependence, uncomplicated Plan 57 yo male, history of schizoaffective disorder, polysubstance use disorder, alcohol use disorder, returns after recent discharge. Pt reports he began alcohol use upon discharge and could not organize his meds to take them correctly. Pt was asked to leave his living situation and today asks to return to [facility] and be placed in a nursing facility. Pt accepting of his treatment plan. Benzodiazepines will be used per [facility] only. Plan: Lorazepam detox per [facility] Addiction consult Begin to explore longer term residential treatment options. Medications reviewed with pt and adjusted --Gabapentin increase to 300 mg tid --Amlodipine 5 mg daily --Nicotine Patch/Gum --Follow up xray of foot (injured spring 2022) 04/30/23 Decrease Gabapentin-slurring of speech Ibuprofen prn pain Sertraline 25 mg daily 05/01/23 Increase Seroquel to 100 mg tid prn Increase Chlorpromazine to 150 mg tid Team will help him apply to [facility] 05/02/23 continue treatment plan increase seroqule to 125 mg TID prn anxiety 05/04/23 Discharge planning. Refusing of referrals. 05/06/23 Clonidine 0.1 mg tid prn anxiety Remeron 15 mg hs 05/07 Increase Clonidine to qid prn Increase Buspirone to 20 mg tid Pt hoping for admit to [facility]. Patient educated on: medication risk/benefits and therapeutic strategies Informed Consent: understands Reason for continued inpatient stay Substantial Risk for: rapid decompensation and med/psych decompensation Time Spent With Patient Time: Total time managing care of this patient today ____ minutes.
[2023-05-07 19:05] VITALS: BP 96/58; PULSE 91; TEMP 36.2
[2023-05-07] MEDS: Prazosin HCL 1 MG CAPSULE 2 MG PO (21:16)
[2023-05-07] MEDS: Mirtazapine 15 MG TABLET PO (21:17)
[2023-05-07] MEDS: Atorvastatin Calcium 10 MG TABLET PO (21:17)
[2023-05-07] MEDS: Nicotine Polacrilex 2 MG GUM 4 MG BUCCAL (21:20)
[2023-05-07] MEDS: Melatonin 3 MG TABLET 9 MG PO (22:38)
[2023-05-08] MEDS: chlorproMAZINE HCl 100 MG TABLET 200 MG PO (00:11)
[2023-05-08 00:57] VITALS: BP 114/67; PULSE 88
[2023-05-08] MEDS: cloNIDine HCL 0.1 MG TABLET PO ×4 (00:57→18:46)
[2023-05-08 08:00] VITALS: BP 115/75; PULSE 95; RESP 16; TEMP 36.6; O2SAT 96
[2023-05-08] MEDS: Omeprazole 20 MG CAPSULE.DR PO (08:02)
[2023-05-08] MEDS: chlorproMAZINE HCl 25 MG TABLET 150 MG PO ×3 (08:02→21:21)
[2023-05-08] MEDS: Levothyroxine Sodium 25 MCG TABLET PO (08:02)
[2023-05-08] MEDS: buPROPion HCL 75 MG TABLET PO (08:02)
[2023-05-08] MEDS: busPIRone HCl 10 MG TABLET 20 MG PO ×3 (08:02→21:22)
[2023-05-08] MEDS: Folic Acid 1 MG TABLET PO (08:03)
[2023-05-08] MEDS: Multivitamin TABLET 1 TAB PO (08:03)
[2023-05-08] MEDS: amLODIPine Besylate 5 MG TABLET PO (08:03)
[2023-05-08] MEDS: Ferrous Sulfate 324 MG TABLET.DR PO (08:03)
[2023-05-08] MEDS: Gabapentin 100 MG CAPSULE PO ×3 (08:03→21:29)
[2023-05-08] MEDS: Metoprolol Succinate ER 25 MG TAB.ER.24H PO (08:04)
[2023-05-08] MEDS: Cyanocobalamin (Vitamin B-12) 500 MCG TABLET PO (08:04)
[2023-05-08] MEDS: Sertraline HCL 25 MG TABLET PO (08:04)
[2023-05-08] MEDS: Thiamine HCL 100 MG TABLET PO (08:04)
[2023-05-08] MEDS: Nicotine 21 MG PATCH.TD24 TRANSDERMA (08:05)
[2023-05-08] MEDS: Lidocaine 4 % Patch ADH..PATCH 1 PATCH TRANSDERMA (08:06)
[2023-05-08 08:41] VITALS: BP 100/66; PULSE 94
[2023-05-08] MEDS: hydrOXYzine HCL 25 MG TABLET PO ×2 (08:42→16:00)
--- NOTE | 2023-05-08 10:31 | HO.PSYCHPN ---
Subjective Subjective Date of Service: 05/08/23 Reason For Visit: ETOH,STATES AUD/VISUAL HALLUCINATIONS PER EMS Subjective Notes: Conditional Voluntary Healthcare Proxy: No Guardianship: No Interim History: I am good . Reports regime to be somewhat more helpful. Clonidine is helpful he reports. Ongoing sleep issues (early recovery). Will increase Mirtazapine. Pt excited about the next phase of treatment. Feeling good today, re-enforced without narcotics or benzodiazepines this is possible. He concurs, yet states he would feel even better if these were added. Discussed. Medication Compliance: Yes Side effects from medications: No Attending Groups: Yes Review of Systems Acute medical concerns: No Medical Review of Systems: unchanged Mental Status Exam Mental Status Exam Patient Appearance: Well Grooomed and Appropriate Patient Orientation: Person, Place, Time and Situation Level of Consciousness: Alert Patient Behavior: Talkative and Good Eye Contact Mood Description: Depressed Affect Description: Flat Patient Cognition Impaired: No Ability to Follow Directions: Fair Speech Pattern: Spontaneous Speech Memory Description: Episodic Impaired Hallucinations: None Delusions: Not Present Thought Process: Intact and Goal Oriented Thought Content: positive for Intact and positive for Goal Oriented Judgement: Fair Diagnostics Vital Signs (24Hr): Vital Signs - 24 hr 05/07/23 19:05 05/08/23 00:57 05/08/23 08:00 Temperature 97.2 F 97.9 F Pulse Rate 91 88 95 Respiratory Rate 16 Blood Pressure 96/58 L 114/67 115/75 Pulse Oximetry 96 Oxygen Delivery Method Room Air 05/08/23 08:41 Temperature Pulse Rate 94 Respiratory Rate Blood Pressure 100/66 Pulse Oximetry Oxygen Delivery Method BMI result Body Mass Index 26.8 Labs 04/27/23 15:02 04/27/23 15:02 Imaging Radiology Impressions: ITS Impressions Chest X-Ray 04/27/23 15:21 IMPRESSION: No acute cardiopulmonary process. Foot X-Ray 04/29/23 10:33 IMPRESSION: Fracture of the distal right fibula with evidence of some healing changes. Small lucency in the fifth metatarsal head on one view may reflect a small fracture or spurring. Degenerative changes. Medications Medications Current Medications Acetaminophen (Acetaminophen 325 Mg Tablet) 650 mg PO Q6H PRN PRN Reason: Headache/Pain Mild Scale (1-3) Last Admin: 05/07/23 14:12 Dose: 650 mg Al Hydroxide/Mg Hydroxide (Magnesium Hydrox/Alum Hydrox 30 Ml Oral.Susp) 30 ml PO Q6H PRN PRN Reason: Heartburn/Nausea Albuterol Sulfate (Albuterol Sulfate 90 Mcg 8 Gm Inhaler) 2 puff INHALE Q4H PRN PRN Reason: wheeze Last Admin: 05/01/23 22:54 Dose: 2 puff Amlodipine Besylate (Amlodipine Besylate 5 Mg Tablet) 5 mg PO DAILY [facility]; Protocol Last Admin: 05/08/23 08:03 Dose: 5 mg Atorvastatin Calcium (Atorvastatin Calcium 10 Mg Tablet) 10 mg PO BEDTIME [facility] Last Admin: 05/07/23 21:17 Dose: 10 mg Benztropine Mesylate (Benztropine Mesylate 1 Mg Tablet) 1 mg PO BID PRN PRN Reason: Extrapyramidal Effects/Symptoms Bupropion HCl (Bupropion Hcl 75 Mg Tablet) 75 mg PO DAILY [facility] Last Admin: 05/08/23 08:02 Dose: 75 mg Buspirone HCl (Buspirone Hcl 10 Mg Tablet) 20 mg PO TID [facility] Last Admin: 05/08/23 08:02 Dose: 20 mg Chlorpromazine HCl (Chlorpromazine Hcl 100 Mg Tablet) 200 mg PO BEDTIME [facility] Last Admin: 05/08/23 00:11 Dose: 200 mg Chlorpromazine HCl (Chlorpromazine Hcl 25 Mg Tablet) 150 mg PO TID [facility] Last Admin: 05/08/23 08:02 Dose: 150 mg Clonidine HCl (Clonidine Hcl 0.1 Mg Tablet) 0.1 mg PO QID PRN; Protocol PRN Reason: anxiety Last Admin: 05/08/23 08:42 Dose: 0.1 mg Cyanocobalamin (Cyanocobalamin (Vitamin B-12) 500 Mcg Tablet) 500 mcg PO DAILY [facility] Last Admin: 05/08/23 08:04 Dose: 500 mcg Ferrous Sulfate (Ferrous Sulfate 324 Mg Tablet.Dr) 324 mg PO DAILY [facility] Last Admin: 05/08/23 08:03 Dose: 324 mg Folic Acid (Folic Acid 1 Mg Tablet) 1 mg PO DAILY [facility] Last Admin: 05/08/23 08:03 Dose: 1 mg Gabapentin (Gabapentin 100 Mg Capsule) 100 mg PO TID [facility] Last Admin: 05/08/23 08:03 Dose: 100 mg Hydroxyzine HCl (Hydroxyzine Hcl 25 Mg Tablet) 25 mg PO Q6H PRN PRN Reason: Anxiety Last Admin: 05/08/23 08:42 Dose: 25 mg Ibuprofen (Ibuprofen 800 Mg Tablet) 800 mg PO Q8H PRN PRN Reason: Pain, Mild (Pain Scale 1-3) Last Admin: 05/07/23 18:19 Dose: 800 mg Levothyroxine Sodium (Levothyroxine Sodium 25 Mcg Tablet) 25 mcg PO DAILY@0700 [facility] Last Admin: 05/08/23 08:02 Dose: 25 mcg Lidocaine (Lidocaine 4 % Patch Adh..Patch) 1 patch TRANSDERMA DAILY [facility] Last Admin: 05/08/23 08:06 Dose: 1 patch Magnesium Hydroxide (Milk Of Magnesia 30 Ml Oral.Susp) 30 ml PO DAILY PRN PRN Reason: Constipation Magnesium Hydroxide (Milk Of Magnesia 30 Ml Oral.Susp) 30 ml PO DAILY PRN PRN Reason: constipation Melatonin (Melatonin 3 Mg Tablet) 9 mg PO DAILY PRN PRN Reason: Insomnia Last Admin: 05/07/23 22:38 Dose: 9 mg Metoprolol Succinate (Metoprolol Succinate Er 25 Mg Tab.Er.24h) 25 mg PO DAILY [facility]; Protocol Last Admin: 05/08/23 08:04 Dose: 25 mg Mirtazapine (Mirtazapine 15 Mg Tablet) 15 mg PO BEDTIME [facility] Last Admin: 05/07/23 21:17 Dose: 15 mg Multivitamins/Vitamin C (Multivitamin Tablet) 1 tab PO DAILY [facility] Last Admin: 05/08/23 08:03 Dose: 1 tab Nicotine (Nicotine 21 Mg Patch.Td24) 21 mg TRANSDERMA DAILY [facility] Last Admin: 05/08/23 08:05 Dose: 21 mg Nicotine Polacrilex (Nicotine Polacrilex 2 Mg Gum) 4 mg BUCCAL Q2H PRN PRN Reason: Nicotine Cravings Last Admin: 05/07/23 21:20 Dose: 4 mg Omeprazole (Omeprazole 20 Mg Capsule.Dr) 20 mg PO DAILY [facility] Last Admin: 05/08/23 08:02 Dose: 20 mg Prazosin HCl (Prazosin Hcl 1 Mg Capsule) 2 mg PO BEDTIME [facility]; Protocol Last Admin: 05/07/23 21:16 Dose: 2 mg Quetiapine Fumarate (Quetiapine Fumarate 25 Mg Tablet) 125 mg PO TID PRN PRN Reason: Anxiety Last Admin: 05/07/23 18:19 Dose: 125 mg Sertraline HCl (Sertraline Hcl 25 Mg Tablet) 25 mg PO DAILY [facility] Last Admin: 05/08/23 08:04 Dose: 25 mg Thiamine HCl (Thiamine Hcl 100 Mg Tablet) 100 mg PO DAILY [facility] Last Admin: 05/08/23 08:04 Dose: 100 mg Allergies Allergies Allergy/AdvReac Type Severity Reaction Status Date / Time aspirin [ASA] Allergy Unknown FACIAL Verified 04/14/23 09:16 SWELLING Penicillins [PENICILLINS] Allergy Unknown HIVES Verified 04/14/23 09:16 trazodone Allergy Anaphylaxis Verified 04/14/23 09:16 tramadol [TRAMADOL] AdvReac Unknown NAUSEA & Verified 04/14/23 09:16 VOMITING Assessment & Plan Assessment & Plan (1) Polysubstance use disorder: Status: Acute Code(s): F19.90 - Other psychoactive substance use, unspecified, uncomplicated (2) Schizoaffective disorder: Status: Acute Code(s): F25.9 - Schizoaffective disorder, unspecified (3) Alcohol use disorder, severe, dependence: Status: Acute Code(s): F10.20 - Alcohol dependence, uncomplicated Plan 57 yo male, history of schizoaffective disorder, polysubstance use disorder, alcohol use disorder, returns after recent discharge. Pt reports he began alcohol use upon discharge and could not organize his meds to take them correctly. Pt was asked to leave his living situation and today asks to return to [facility] and be placed in a nursing facility. Pt accepting of his treatment plan. Benzodiazepines will be used per [facility] only. Plan: Lorazepam detox per [facility] Addiction consult Begin to explore longer term residential treatment options. Medications reviewed with pt and adjusted --Gabapentin increase to 300 mg tid --Amlodipine 5 mg daily --Nicotine Patch/Gum --Follow up xray of foot (injured spring 2022) 04/30/23 Decrease Gabapentin-slurring of speech Ibuprofen prn pain Sertraline 25 mg daily 05/01/23 Increase Seroquel to 100 mg tid prn Increase Chlorpromazine to 150 mg tid Team will help him apply to [facility] 05/02/23 continue treatment plan increase seroqule to 125 mg TID prn anxiety 05/04/23 Discharge planning. Refusing of referrals. 05/06/23 Clonidine 0.1 mg tid prn anxiety Remeron 15 mg hs 05/07 Increase Clonidine to qid prn Increase Buspirone to 20 mg tid Pt hoping for admit to [facility]. 05/08/23 Continue current regime and plan. Patient educated on: medication risk/benefits and therapeutic strategies Informed Consent: understands and further education needed Reason for continued inpatient stay Substantial Risk for: inability to function, rapid decompensation and med/psych decompensation Time Spent With Patient Time: Total time managing care of this patient today ____ minutes.
[2023-05-08] MEDS: QUEtiapine Fumarate 25 MG TABLET 125 MG PO ×2 (10:32→18:46)
[2023-05-08] MEDS: Ibuprofen 800 MG TABLET PO ×2 (12:03→21:20)
[2023-05-08] MEDS: Nicotine Polacrilex 2 MG GUM 4 MG BUCCAL ×2 (13:08→19:14)
[2023-05-08 13:44] VITALS: BP 114/63; PULSE 89; RESP 16
[2023-05-08] MEDS: Acetaminophen 325 MG TABLET 650 MG PO (15:59)
[2023-05-08 18:40] VITALS: BP 98/55; PULSE 85; TEMP 36.8
[2023-05-08] MEDS: Atorvastatin Calcium 10 MG TABLET PO (21:21)
[2023-05-08] MEDS: Prazosin HCL 1 MG CAPSULE 2 MG PO (21:22)
[2023-05-08] MEDS: Mirtazapine 30 MG TABLET PO (21:22)
[2023-05-09] MEDS: Melatonin 3 MG TABLET 9 MG PO (00:38)
[2023-05-09 08:30] VITALS: BP 116/76; PULSE 95; RESP 16; TEMP 36.3; O2SAT 95
[2023-05-09] MEDS: cloNIDine HCL 0.1 MG TABLET PO ×2 (08:39→13:19)
[2023-05-09] MEDS: busPIRone HCl 10 MG TABLET 20 MG PO ×3 (08:39→21:39)
[2023-05-09] MEDS: Levothyroxine Sodium 25 MCG TABLET PO (08:39)
[2023-05-09] MEDS: Thiamine HCL 100 MG TABLET PO (08:39)
[2023-05-09] MEDS: chlorproMAZINE HCl 25 MG TABLET 150 MG PO ×3 (08:39→21:38)
[2023-05-09] MEDS: Ferrous Sulfate 324 MG TABLET.DR PO (08:40)
[2023-05-09] MEDS: Metoprolol Succinate ER 25 MG TAB.ER.24H PO (08:40)
[2023-05-09] MEDS: Cyanocobalamin (Vitamin B-12) 500 MCG TABLET PO (08:40)
[2023-05-09] MEDS: Multivitamin TABLET 1 TAB PO (08:40)
[2023-05-09] MEDS: hydrOXYzine HCL 25 MG TABLET PO ×2 (08:40→18:37)
[2023-05-09] MEDS: Gabapentin 100 MG CAPSULE PO ×3 (08:40→21:39)
[2023-05-09] MEDS: Folic Acid 1 MG TABLET PO (08:40)
[2023-05-09] MEDS: buPROPion HCL 75 MG TABLET PO (08:40)
[2023-05-09] MEDS: QUEtiapine Fumarate 25 MG TABLET 125 MG PO ×2 (08:41→13:19)
[2023-05-09] MEDS: amLODIPine Besylate 5 MG TABLET PO (08:41)
[2023-05-09] MEDS: Nicotine 21 MG PATCH.TD24 TRANSDERMA (08:44)
[2023-05-09] MEDS: Omeprazole 20 MG CAPSULE.DR PO (08:44)
[2023-05-09 13:22] VITALS: BP 115/63; PULSE 98
[2023-05-09] MEDS: Nicotine Polacrilex 2 MG GUM 4 MG BUCCAL ×2 (14:59→22:02)
--- NOTE | 2023-05-09 16:03 | HO.PSYCHPN ---
Subjective Subjective Date of Service: 05/09/23 Reason For Visit: ETOH,STATES AUD/VISUAL HALLUCINATIONS PER EMS Subjective Notes: Conditional Voluntary Interim History: met with patient. Discussed with Nursing. In 5 minutes checks as wearing a boot. Verbal altercation with another patient this morning over TV remote. On Seroquel, Thorazine, clonidine for anxiety. Hopeful for discharge to [facility] after the weekend. Today reports overall things gradually improving. Reports feeling extremely anxious. Looking forward to making the next step after discharge regarding recovery and mental health and well-being. We discussed increasing clonidine to 0.2 mg scheduled 3 times a day and Seroquel 150 mg 3 times per day. Re-educated around not prescribing benzodiazepines. Medication Compliance: Yes Side effects from medications: No Attending Groups: Yes Review of Systems Acute medical concerns: No Review of Systems Review of Systems Yes all other systems are reviewed and are negative Mental Status Exam Mental Status Exam Narrative: Pleasant. Engaged. Fairly presented. Walking boot. Organized. Some anxiety. No SI. No HI. No agitation. No psychosis. Insight and judgment good Diagnostics Vital Signs (24Hr): Vital Signs - 24 hr 05/08/23 18:40 05/09/23 08:30 05/09/23 13:22 Temperature 98.2 F 97.4 F Pulse Rate 85 95 98 Respiratory Rate 16 Blood Pressure 98/55 L 116/76 115/63 Pulse Oximetry 95 Oxygen Delivery Method Room Air BMI result Body Mass Index 26.8 Labs 04/27/23 15:02 04/27/23 15:02 Imaging Radiology Impressions: ITS Impressions Chest X-Ray 04/27/23 15:21 IMPRESSION: No acute cardiopulmonary process. Foot X-Ray 04/29/23 10:33 IMPRESSION: Fracture of the distal right fibula with evidence of some healing changes. Small lucency in the fifth metatarsal head on one view may reflect a small fracture or spurring. Degenerative changes. Medications Medications Current Medications Acetaminophen (Acetaminophen 325 Mg Tablet) 650 mg PO Q6H PRN PRN Reason: Headache/Pain Mild Scale (1-3) Last Admin: 05/08/23 15:59 Dose: 650 mg Al Hydroxide/Mg Hydroxide (Magnesium Hydrox/Alum Hydrox 30 Ml Oral.Susp) 30 ml PO Q6H PRN PRN Reason: Heartburn/Nausea Albuterol Sulfate (Albuterol Sulfate 90 Mcg 8 Gm Inhaler) 2 puff INHALE Q4H PRN PRN Reason: wheeze Last Admin: 05/01/23 22:54 Dose: 2 puff Amlodipine Besylate (Amlodipine Besylate 5 Mg Tablet) 5 mg PO DAILY [facility]; Protocol Last Admin: 05/09/23 08:41 Dose: 5 mg Atorvastatin Calcium (Atorvastatin Calcium 10 Mg Tablet) 10 mg PO BEDTIME [facility] Last Admin: 05/08/23 21:21 Dose: 10 mg Benztropine Mesylate (Benztropine Mesylate 1 Mg Tablet) 1 mg PO BID PRN PRN Reason: Extrapyramidal Effects/Symptoms Bupropion HCl (Bupropion Hcl 75 Mg Tablet) 75 mg PO DAILY [facility] Last Admin: 05/09/23 08:40 Dose: 75 mg Buspirone HCl (Buspirone Hcl 10 Mg Tablet) 20 mg PO TID [facility] Last Admin: 05/09/23 14:07 Dose: 20 mg Chlorpromazine HCl (Chlorpromazine Hcl 100 Mg Tablet) 200 mg PO BEDTIME [facility] Last Admin: 05/09/23 00:38 Dose: 200 mg Chlorpromazine HCl (Chlorpromazine Hcl 25 Mg Tablet) 150 mg PO TID [facility] Last Admin: 05/09/23 14:07 Dose: 150 mg Clonidine HCl (Clonidine Hcl 0.1 Mg Tablet) 0.1 mg PO QID PRN; Protocol PRN Reason: anxiety Last Admin: 05/09/23 13:19 Dose: 0.1 mg Cyanocobalamin (Cyanocobalamin (Vitamin B-12) 500 Mcg Tablet) 500 mcg PO DAILY [facility] Last Admin: 05/09/23 08:40 Dose: 500 mcg Ferrous Sulfate (Ferrous Sulfate 324 Mg Tablet.Dr) 324 mg PO DAILY [facility] Last Admin: 05/09/23 08:40 Dose: 324 mg Folic Acid (Folic Acid 1 Mg Tablet) 1 mg PO DAILY [facility] Last Admin: 05/09/23 08:40 Dose: 1 mg Gabapentin (Gabapentin 100 Mg Capsule) 100 mg PO TID [facility] Last Admin: 05/09/23 14:07 Dose: 100 mg Hydroxyzine HCl (Hydroxyzine Hcl 25 Mg Tablet) 25 mg PO Q6H PRN PRN Reason: Anxiety Last Admin: 05/09/23 08:40 Dose: 25 mg Ibuprofen (Ibuprofen 800 Mg Tablet) 800 mg PO Q8H PRN PRN Reason: Pain, Mild (Pain Scale 1-3) Last Admin: 05/08/23 21:20 Dose: 800 mg Levothyroxine Sodium (Levothyroxine Sodium 25 Mcg Tablet) 25 mcg PO DAILY@0700 [facility] Last Admin: 05/09/23 08:39 Dose: 25 mcg Lidocaine (Lidocaine 4 % Patch Adh..Patch) 1 patch TRANSDERMA DAILY [facility] Last Admin: 05/09/23 11:13 Dose: Not Given Magnesium Hydroxide (Milk Of Magnesia 30 Ml Oral.Susp) 30 ml PO DAILY PRN PRN Reason: Constipation Magnesium Hydroxide (Milk Of Magnesia 30 Ml Oral.Susp) 30 ml PO DAILY PRN PRN Reason: constipation Melatonin (Melatonin 3 Mg Tablet) 9 mg PO DAILY PRN PRN Reason: Insomnia Last Admin: 05/09/23 00:38 Dose: 9 mg Metoprolol Succinate (Metoprolol Succinate Er 25 Mg Tab.Er.24h) 25 mg PO DAILY [facility]; Protocol Last Admin: 05/09/23 08:40 Dose: 25 mg Mirtazapine (Mirtazapine 30 Mg Tablet) 30 mg PO BEDTIME [facility] Last Admin: 05/08/23 21:22 Dose: 30 mg Multivitamins/Vitamin C (Multivitamin Tablet) 1 tab PO DAILY [facility] Last Admin: 05/09/23 08:40 Dose: 1 tab Nicotine (Nicotine 21 Mg Patch.Td24) 21 mg TRANSDERMA DAILY [facility] Last Admin: 05/09/23 08:44 Dose: 21 mg Nicotine Polacrilex (Nicotine Polacrilex 2 Mg Gum) 4 mg BUCCAL Q2H PRN PRN Reason: Nicotine Cravings Last Admin: 05/09/23 14:59 Dose: 4 mg Omeprazole (Omeprazole 20 Mg Capsule.Dr) 20 mg PO DAILY [facility] Last Admin: 05/09/23 08:44 Dose: 20 mg Prazosin HCl (Prazosin Hcl 1 Mg Capsule) 2 mg PO BEDTIME [facility]; Protocol Last Admin: 05/08/23 21:22 Dose: 2 mg Quetiapine Fumarate (Quetiapine Fumarate 25 Mg Tablet) 125 mg PO TID PRN PRN Reason: Anxiety Last Admin: 05/09/23 13:19 Dose: 125 mg Thiamine HCl (Thiamine Hcl 100 Mg Tablet) 100 mg PO DAILY [facility] Last Admin: 05/09/23 08:39 Dose: 100 mg Allergies Allergies Allergy/AdvReac Type Severity Reaction Status Date / Time aspirin [ASA] Allergy Unknown FACIAL Verified 04/14/23 09:16 SWELLING Penicillins [PENICILLINS] Allergy Unknown HIVES Verified 04/14/23 09:16 trazodone Allergy Anaphylaxis Verified 04/14/23 09:16 tramadol [TRAMADOL] AdvReac Unknown NAUSEA & Verified 04/14/23 09:16 VOMITING Assessment & Plan Assessment & Plan (1) Polysubstance use disorder: Status: Acute Code(s): F19.90 - Other psychoactive substance use, unspecified, uncomplicated (2) Schizoaffective disorder: Status: Acute Code(s): F25.9 - Schizoaffective disorder, unspecified (3) Alcohol use disorder, severe, dependence: Status: Acute Code(s): F10.20 - Alcohol dependence, uncomplicated Plan 57 yo male, history of schizoaffective disorder, polysubstance use disorder, alcohol use disorder, returns after recent discharge. Pt reports he began alcohol use upon discharge and could not organize his meds to take them correctly. Pt was asked to leave his living situation and today asks to return to Valium/Xanax and be placed in a nursing facility. Pt accepting of his treatment plan. Benzodiazepines will be used per [facility] only. Plan: Lorazepam detox per [facility] Addiction consult Begin to explore longer term residential treatment options. Medications reviewed with pt and adjusted --Gabapentin increase to 300 mg tid --Amlodipine 5 mg daily --Nicotine Patch/Gum --Follow up xray of foot (injured spring 2022) 04/30/23 Decrease Gabapentin-slurring of speech Ibuprofen prn pain Sertraline 25 mg daily 05/01/23 Increase Seroquel to 100 mg tid prn Increase Chlorpromazine to 150 mg tid Team will help him apply to [facility] 05/02/23 continue treatment plan increase seroqule to 125 mg TID prn anxiety 05/04/23 Discharge planning. Refusing of referrals. 05/06/23 Clonidine 0.1 mg tid prn anxiety Remeron 15 mg hs 05/07 Increase Clonidine to qid prn Increase Buspirone to 20 mg tid Pt hoping for admit to [facility]. 05/08/23 Continue current regime and plan. 05/09/2023:We discussed increasing clonidine to 0.2 mg scheduled 3 times a day and Seroquel 150 mg 3 times per day. Re-educated around not prescribing benzodiazepines Reason for continued inpatient stay Substantial Risk for: med/psych decompensation Time Spent With Patient Time: Total time managing care of this patient today ____ minutes.
[2023-05-09] MEDS: QUEtiapine Fumarate 50 MG TABLET 150 MG PO ×2 (16:24→21:39)
[2023-05-09] MEDS: Ibuprofen 800 MG TABLET PO (16:25)
[2023-05-09] MEDS: cloNIDine HCL 0.2 MG TABLET PO ×2 (16:25→21:39)
[2023-05-09 17:00] VITALS: BP 94/56; PULSE 90; TEMP 36.6; O2SAT 97
[2023-05-09] MEDS: Mirtazapine 30 MG TABLET PO (21:29)
[2023-05-09] MEDS: chlorproMAZINE HCl 100 MG TABLET 200 MG PO (21:31)
[2023-05-09] MEDS: Prazosin HCL 1 MG CAPSULE 2 MG PO (21:39)
[2023-05-09] MEDS: Atorvastatin Calcium 10 MG TABLET PO (21:39)
[2023-05-10] MEDS: Melatonin 3 MG TABLET 9 MG PO ×2 (00:48→22:09)
[2023-05-10] MEDS: hydrOXYzine HCL 25 MG TABLET PO ×2 (00:48→09:51)
[2023-05-10] MEDS: chlorproMAZINE HCl 100 MG TABLET 200 MG PO (00:48)
[2023-05-10 09:05] VITALS: BP 113/70; PULSE 91; RESP 16; TEMP 36.4; O2SAT 96
[2023-05-10] MEDS: cloNIDine HCL 0.2 MG TABLET PO ×3 (09:10→21:05)
[2023-05-10] MEDS: chlorproMAZINE HCl 25 MG TABLET 150 MG PO ×3 (09:10→21:06)
[2023-05-10] MEDS: Ferrous Sulfate 324 MG TABLET.DR PO (09:11)
[2023-05-10] MEDS: Thiamine HCL 100 MG TABLET PO (09:11)
[2023-05-10] MEDS: amLODIPine Besylate 5 MG TABLET PO (09:11)
[2023-05-10] MEDS: Cyanocobalamin (Vitamin B-12) 500 MCG TABLET PO (09:11)
[2023-05-10] MEDS: Folic Acid 1 MG TABLET PO (09:11)
[2023-05-10] MEDS: buPROPion HCL 75 MG TABLET PO (09:11)
[2023-05-10] MEDS: Multivitamin TABLET 1 TAB PO (09:11)
[2023-05-10] MEDS: Omeprazole 20 MG CAPSULE.DR PO (09:11)
[2023-05-10] MEDS: QUEtiapine Fumarate 50 MG TABLET 150 MG PO ×3 (09:11→19:34)
[2023-05-10] MEDS: Metoprolol Succinate ER 25 MG TAB.ER.24H PO (09:11)
[2023-05-10] MEDS: Gabapentin 100 MG CAPSULE PO ×3 (09:11→21:12)
[2023-05-10] MEDS: busPIRone HCl 10 MG TABLET 20 MG PO ×3 (09:12→21:12)
[2023-05-10] MEDS: Levothyroxine Sodium 25 MCG TABLET PO (09:12)
[2023-05-10] MEDS: Nicotine 21 MG PATCH.TD24 TRANSDERMA (09:13)
[2023-05-10] MEDS: Ibuprofen 800 MG TABLET PO ×2 (09:50→18:51)
[2023-05-10] MEDS: Nicotine Polacrilex 2 MG GUM 4 MG BUCCAL ×2 (11:03→18:51)
--- NOTE | 2023-05-10 12:03 | P.PNPSI_ITS ---
Subjective Subjective Date of Service: 05/10/23 Reason For Visit: ETOH,STATES AUD/VISUAL HALLUCINATIONS PER EMS Subjective Notes: Conditional Voluntary Interim History: Ongoing anxiety- on Seroquel, Thorazine, clonidine for anxiety. Reports increase in Seroquel and clonidine not helpful. Feels that hydroxyzine helps- will adjust dose. Also reports being on gabapentin 300mg. Reviewed [facility]- last time 300mg was September 2022- since then has been prescribed 100mg bid/200mg total per day. Medication Compliance: Yes Side effects from medications: No Attending Groups: Yes Review of Systems Acute medical concerns: No Review of Systems Review of Systems Yes all other systems are reviewed and are negative Mental Status Exam Mental Status Exam Narrative: Pleasant. Engaged. Fairly presented. Organized. Anxiety. No SI. No HI. No agitation. No psychosis. Insight and judgment fair Diagnostics Vital Signs (24Hr): Vital Signs - 24 hr 05/09/23 13:22 05/09/23 17:00 05/10/23 09:05 Temperature 98 F 97.6 F Pulse Rate 98 90 91 Respiratory Rate 16 Blood Pressure 115/63 94/56 L 113/70 Pulse Oximetry 97 96 Oxygen Delivery Method Room Air BMI result Body Mass Index 26.8 Labs 04/27/23 15:02 04/27/23 15:02 Imaging Radiology Impressions: ITS Impressions Chest X-Ray 04/27/23 15:21 IMPRESSION: No acute cardiopulmonary process. Foot X-Ray 04/29/23 10:33 IMPRESSION: Fracture of the distal right fibula with evidence of some healing changes. Small lucency in the fifth metatarsal head on one view may reflect a small fracture or spurring. Degenerative changes. Medications Medications Current Medications Acetaminophen (Acetaminophen 325 Mg Tablet) 650 mg PO Q6H PRN PRN Reason: Headache/Pain Mild Scale (1-3) Last Admin: 05/08/23 15:59 Dose: 650 mg Al Hydroxide/Mg Hydroxide (Magnesium Hydrox/Alum Hydrox 30 Ml Oral.Susp) 30 ml PO Q6H PRN PRN Reason: Heartburn/Nausea Albuterol Sulfate (Albuterol Sulfate 90 Mcg 8 Gm Inhaler) 2 puff INHALE Q4H PRN PRN Reason: wheeze Last Admin: 05/01/23 22:54 Dose: 2 puff Amlodipine Besylate (Amlodipine Besylate 5 Mg Tablet) 5 mg PO DAILY [facility]; Protocol Last Admin: 05/10/23 09:11 Dose: 5 mg Atorvastatin Calcium (Atorvastatin Calcium 10 Mg Tablet) 10 mg PO BEDTIME [facility] Last Admin: 05/09/23 21:39 Dose: 10 mg Benztropine Mesylate (Benztropine Mesylate 1 Mg Tablet) 1 mg PO BID PRN PRN Reason: Extrapyramidal Effects/Symptoms Bupropion HCl (Bupropion Hcl 75 Mg Tablet) 75 mg PO DAILY [facility] Last Admin: 05/10/23 09:11 Dose: 75 mg Buspirone HCl (Buspirone Hcl 10 Mg Tablet) 20 mg PO TID [facility] Last Admin: 05/10/23 09:12 Dose: 20 mg Chlorpromazine HCl (Chlorpromazine Hcl 100 Mg Tablet) 200 mg PO BEDTIME [facility] Last Admin: 05/10/23 00:48 Dose: 200 mg Chlorpromazine HCl (Chlorpromazine Hcl 25 Mg Tablet) 150 mg PO TID [facility] Last Admin: 05/10/23 09:10 Dose: 150 mg Clonidine HCl (Clonidine Hcl 0.2 Mg Tablet) 0.2 mg PO TID [facility]; Protocol Last Admin: 05/10/23 09:10 Dose: 0.2 mg Cyanocobalamin (Cyanocobalamin (Vitamin B-12) 500 Mcg Tablet) 500 mcg PO DAILY [facility] Last Admin: 05/10/23 09:11 Dose: 500 mcg Ferrous Sulfate (Ferrous Sulfate 324 Mg Tablet.Dr) 324 mg PO DAILY [facility] Last Admin: 05/10/23 09:11 Dose: 324 mg Folic Acid (Folic Acid 1 Mg Tablet) 1 mg PO DAILY [facility] Last Admin: 05/10/23 09:11 Dose: 1 mg Gabapentin (Gabapentin 100 Mg Capsule) 100 mg PO TID [facility] Last Admin: 05/10/23 09:11 Dose: 100 mg Hydroxyzine HCl (Hydroxyzine Hcl 25 Mg Tablet) 25 mg PO Q6H PRN PRN Reason: Anxiety Last Admin: 05/10/23 09:51 Dose: 25 mg Ibuprofen (Ibuprofen 800 Mg Tablet) 800 mg PO Q8H PRN PRN Reason: Pain, Mild (Pain Scale 1-3) Last Admin: 05/10/23 09:50 Dose: 800 mg Levothyroxine Sodium (Levothyroxine Sodium 25 Mcg Tablet) 25 mcg PO DAILY@0700 [facility] Last Admin: 05/10/23 09:12 Dose: 25 mcg Lidocaine (Lidocaine 4 % Patch Adh..Patch) 1 patch TRANSDERMA DAILY [facility] Last Admin: 05/10/23 09:19 Dose: Not Given Magnesium Hydroxide (Milk Of Magnesia 30 Ml Oral.Susp) 30 ml PO DAILY PRN PRN Reason: Constipation Magnesium Hydroxide (Milk Of Magnesia 30 Ml Oral.Susp) 30 ml PO DAILY PRN PRN Reason: constipation Melatonin (Melatonin 3 Mg Tablet) 9 mg PO DAILY PRN PRN Reason: Insomnia Last Admin: 05/10/23 00:48 Dose: 9 mg Metoprolol Succinate (Metoprolol Succinate Er 25 Mg Tab.Er.24h) 25 mg PO DAILY [facility]; Protocol Last Admin: 05/10/23 09:11 Dose: 25 mg Mirtazapine (Mirtazapine 30 Mg Tablet) 30 mg PO BEDTIME [facility] Last Admin: 05/09/23 21:29 Dose: 30 mg Multivitamins/Vitamin C (Multivitamin Tablet) 1 tab PO DAILY [facility] Last Admin: 05/10/23 09:11 Dose: 1 tab Nicotine (Nicotine 21 Mg Patch.Td24) 21 mg TRANSDERMA DAILY [facility] Last Admin: 05/10/23 09:13 Dose: 21 mg Nicotine Polacrilex (Nicotine Polacrilex 2 Mg Gum) 4 mg BUCCAL Q2H PRN PRN Reason: Nicotine Cravings Last Admin: 05/10/23 11:03 Dose: 4 mg Omeprazole (Omeprazole 20 Mg Capsule.Dr) 20 mg PO DAILY [facility] Last Admin: 05/10/23 09:11 Dose: 20 mg Prazosin HCl (Prazosin Hcl 1 Mg Capsule) 2 mg PO BEDTIME [facility]; Protocol Last Admin: 05/09/23 21:39 Dose: 2 mg Quetiapine Fumarate (Quetiapine Fumarate 50 Mg Tablet) 150 mg PO TID [facility] Last Admin: 05/10/23 09:11 Dose: 150 mg Thiamine HCl (Thiamine Hcl 100 Mg Tablet) 100 mg PO DAILY [facility] Last Admin: 05/10/23 09:11 Dose: 100 mg Allergies Allergies Allergy/AdvReac Type Severity Reaction Status Date / Time aspirin [ASA] Allergy Unknown FACIAL Verified 04/14/23 09:16 SWELLING Penicillins [PENICILLINS] Allergy Unknown HIVES Verified 04/14/23 09:16 trazodone Allergy Anaphylaxis Verified 04/14/23 09:16 tramadol [TRAMADOL] AdvReac Unknown NAUSEA & Verified 04/14/23 09:16 VOMITING Assessment & Plan Assessment & Plan (1) Polysubstance use disorder: Status: Acute Code(s): F19.90 - Other psychoactive substance use, unspecified, uncomplicated (2) Schizoaffective disorder: Status: Acute Code(s): F25.9 - Schizoaffective disorder, unspecified (3) Alcohol use disorder, severe, dependence: Status: Acute Code(s): F10.20 - Alcohol dependence, uncomplicated Plan 57 yo male, history of schizoaffective disorder, polysubstance use disorder, alcohol use disorder, returns after recent discharge. Pt reports he began alcohol use upon discharge and could not organize his meds to take them correctly. Pt was asked to leave his living situation and today asks to return to Valium/Xanax and be placed in a nursing facility. Pt accepting of his treatment plan. Benzodiazepines will be used per [facility] only. Plan: Lorazepam detox per [facility] Addiction consult Begin to explore longer term residential treatment options. Medications reviewed with pt and adjusted --Gabapentin increase to 300 mg tid --Amlodipine 5 mg daily --Nicotine Patch/Gum --Follow up xray of foot (injured spring 2022) 04/30/23 Decrease Gabapentin-slurring of speech Ibuprofen prn pain Sertraline 25 mg daily 05/01/23 Increase Seroquel to 100 mg tid prn Increase Chlorpromazine to 150 mg tid Team will help him apply to [facility] 05/02/23 continue treatment plan increase seroqule to 125 mg TID prn anxiety 05/04/23 Discharge planning. Refusing of referrals. 05/06/23 Clonidine 0.1 mg tid prn anxiety Remeron 15 mg hs 05/07 Increase Clonidine to qid prn Increase Buspirone to 20 mg tid Pt hoping for admit to [facility]. 05/08/23 Continue current regime and plan. 05/09/2023:We discussed increasing clonidine to 0.2 mg scheduled 3 times a day and Seroquel 150 mg 3 times per day. Re-educated around not prescribing benzodiazepines 05/10/23: increase hydroxyzine to 50mg prn Reason for continued inpatient stay Substantial Risk for: med/psych decompensation Time Spent With Patient Time: Total time managing care of this patient today ____ minutes.
[2023-05-10 14:15] VITALS: BP 99/57; PULSE 87
[2023-05-10 16:01] VITALS: BP 94/59; PULSE 83; TEMP 36.6; O2SAT 96
[2023-05-10] MEDS: hydrOXYzine HCL 50 MG TABLET PO (16:01)
[2023-05-10] MEDS: Atorvastatin Calcium 10 MG TABLET PO (21:05)
[2023-05-10] MEDS: Prazosin HCL 1 MG CAPSULE 2 MG PO (21:11)
[2023-05-10] MEDS: Mirtazapine 30 MG TABLET PO (21:12)
[2023-05-11] MEDS: hydrOXYzine HCL 50 MG TABLET PO ×2 (00:03→09:13)
[2023-05-11] MEDS: chlorproMAZINE HCl 100 MG TABLET 200 MG PO (00:08)
[2023-05-11] MEDS: Multivitamin TABLET 1 TAB PO (08:49)
[2023-05-11] MEDS: Cyanocobalamin (Vitamin B-12) 500 MCG TABLET PO (08:49)
[2023-05-11] MEDS: QUEtiapine Fumarate 50 MG TABLET 150 MG PO (08:49)
[2023-05-11] MEDS: busPIRone HCl 10 MG TABLET 20 MG PO (08:49)
[2023-05-11] MEDS: Omeprazole 20 MG CAPSULE.DR PO (08:50)
[2023-05-11] MEDS: amLODIPine Besylate 5 MG TABLET PO (08:50)
[2023-05-11] MEDS: cloNIDine HCL 0.2 MG TABLET PO (08:50)
[2023-05-11] MEDS: Thiamine HCL 100 MG TABLET PO (08:50)
[2023-05-11] MEDS: Metoprolol Succinate ER 25 MG TAB.ER.24H PO (08:50)
[2023-05-11] MEDS: Ferrous Sulfate 324 MG TABLET.DR PO (08:50)
[2023-05-11] MEDS: Gabapentin 100 MG CAPSULE PO (08:50)
[2023-05-11] MEDS: Folic Acid 1 MG TABLET PO (08:50)
[2023-05-11] MEDS: buPROPion HCL 75 MG TABLET PO (08:50)
[2023-05-11] MEDS: chlorproMAZINE HCl 25 MG TABLET 150 MG PO (08:50)
[2023-05-11] MEDS: Levothyroxine Sodium 25 MCG TABLET PO (08:50)
[2023-05-11 08:56] VITALS: BP 116/66; PULSE 95; RESP 18; O2SAT 95
[2023-05-11] MEDS: Ibuprofen 800 MG TABLET PO (09:13)
--- NOTE | 2023-05-11 16:26 | PM.PSYDC ---
DS: Providers Provider Date of Service: 05/11/23 Date of admission: 04/28/23 15:30 Date of discharge: 05/11/23 Primary care physician: Unknown Physician Admitting clinician: Jacy Mendoza Attending physician on admission: Girish Thornton Attending physician on discharge: Girish Thornton Discharging clinician: Jacy Mendoza DS: Diagnosis Discharge Diagnosis (1) Polysubstance use disorder: Status: Acute (2) Schizoaffective disorder: Status: Acute (3) Alcohol use disorder, severe, dependence: Status: Acute DS: Medications Discharge Medications Home Medications: Previous Rx's Medication Instructions Recorded albuterol sulfate 90 mcg/actuation 2 puff inhalation Q4H PRN wheeze 04/21/23 aerosol inhaler (Ventolin HFA) #1 inhaler benztropine 1 mg tablet 1 mg PO BID PRN Extrapyramidal 04/21/23 Effects/Symptoms #28 tabs bupropion HCl 75 mg tablet 75 mg PO BID #28 tabs 04/21/23 cyanocobalamin (vitamin B-12) 500 500 mcg PO DAILY #30 tabs 04/21/23 mcg tablet ferrous sulfate 324 mg (65 mg 324 mg PO DAILY #30 tabs 04/21/23 iron) tablet,delayed release folic acid 1 mg tablet 1 mg PO DAILY #30 tabs 04/21/23 metoprolol succinate 25 mg 25 mg PO DAILY #14 tabs 04/21/23 tablet,extended release 24 hr multivitamin (Daily-Jamin tablet) 1 tab PO DAILY #30 tabs 04/21/23 nicotine (polacrilex) 4 mg buccal 4 mg PO QID PRN Nicotine Cravings 04/21/23 lozenge #72 ea nicotine 21 mg/24 hr daily 1 patch topical DAILY #30 ea 04/21/23 transdermal patch pantoprazole 40 mg tablet,delayed 1 tab PO DAILY #30 tabs 04/21/23 release prazosin 2 mg capsule 2 mg PO BEDTIME #14 caps 04/21/23 thiamine mononitrate (vit B1) 100 100 mg PO DAILY #30 tabs 04/21/23 mg tablet amlodipine 5 mg tablet 5 mg PO DAILY #7 tabs 05/11/23 atorvastatin 10 mg tablet 10 mg PO BEDTIME #7 tabs 08/28/23 chlorpromazine 200 mg tablet 200 mg PO BEDTIME #7 tabs 05/11/23 clonidine HCl 0.2 mg tablet 0.2 mg PO TID #21 tabs 05/11/23 gabapentin 100 mg capsule 100 mg PO TID #21 caps 05/11/23 lidocaine 4 % topical patch 1 patch transdermal DAILY #10 ea 05/11/23 (Lidocaine Pain Relief) melatonin 3 mg tablet 9 mg PO DAILY PRN Insomnia #21 tabs 05/11/23 mirtazapine 30 mg tablet 30 mg PO BEDTIME #7 tabs 05/11/23 naloxone 4 mg/actuation nasal 4 mg intranasal Q2M PRN opioid 05/11/23 spray (Narcan) overdose #2 ea nicotine (polacrilex) 2 mg gum 4 mg buccal Q2H PRN Nicotine 05/11/23 Cravings #50 ea nicotine 21 mg/24 hr daily 21 mg transdermal DAILY #30 ea 05/11/23 transdermal patch Mental Status Exam Mental Status Exam Patient Appearance: Well Grooomed and Appropriate Patient Orientation: Person, Place, Time and Situation Level of Consciousness: Alert Patient Behavior: Talkative and Good Eye Contact Mood Description: Depressed Affect Description: Flat Patient Cognition Impaired: No Ability to Follow Directions: Fair Speech Pattern: Spontaneous Speech Memory Description: Episodic Impaired Hallucinations: None Delusions: Not Present Thought Process: Intact and Goal Oriented Thought Content: positive for Intact and positive for Goal Oriented Judgement: Fair Data Imaging Diagnostic Imaging Impressions Chest X-Ray 04/27/23 15:21 IMPRESSION: No acute cardiopulmonary process. Foot X-Ray 04/29/23 10:33 IMPRESSION: Fracture of the distal right fibula with evidence of some healing changes. Small lucency in the fifth metatarsal head on one view may reflect a small fracture or spurring. Degenerative changes. DS: Summary Hospital Course Hospital Course: Admission to adult psychiatry for exacerbation of alcohol, polysubstance use disorder and schizoaffective disorder. Recent admission 04/09/23 - 04/22/23. Pt reports immediate relapse upon discharge without follow up with providers. Pt reported homelessness and asking for senior care placement as he wants and needs care. Detox was completed. Medications were assessed and adjusted. Pt declined several treatment options. He was discharged to out patient care and senior living placement Time spent discussing smoking cessation with patient: 3 to 10 minutes Status at Discharge Functional status at discharge: independent ambulation Overall status at discharge: patient is back to baseline Time Spent with Patient Time attestation: Total time managing care of this patient today ____ minutes. Time spent: Greater than 30 minutes Discharge Plan Discharge Anticipated Discharge Date/Time: 05/11/23 12:08 Patient Disposition: Half-Way Discharge Diagnosis: Schizoaffective Disorder Alcohol Use Disorder Polysubstance Use Disorder Referrals: [facility] [Other] - 05/19/23 2:30 pm (You will need to make this appointment or call to reschedule. [facility] noted, if there is another no call no show you will not be able to return to receive services. ) [facility] [Other] - 1 Week (If you have any questions or concerns please utilize the walk in service or give them a call) Discharge Medications: New nicotine 21 mg/24 hr Patch 24 Hour 21 mg transdermal DAILY Qty: 30 0RF nicotine (polacrilex) 2 mg Gum 4 mg buccal Q2H PRN (Reason: Nicotine Cravings) Qty: 50 0RF atorvastatin 10 mg Tablet 10 mg PO BEDTIME Qty: 7 0RF amlodipine 5 mg Tablet 5 mg PO DAILY Qty: 7 0RF Protocol: Hold for SBP< HOLD for SBP < : 90 clonidine HCl 0.2 mg Tablet 0.2 mg PO TID Qty: 21 0RF Protocol: Hold for SBP< HOLD for SBP < : 90 lidocaine [Lidocaine Pain Relief] 4 % Adhesive Patch,Medicated 1 patch transdermal DAILY Qty: 10 0RF melatonin 3 mg Tablet 9 mg PO DAILY PRN (Reason: Insomnia) Qty: 21 0RF mirtazapine 30 mg Tablet 30 mg PO BEDTIME Qty: 7 0RF gabapentin 100 mg Capsule 100 mg PO TID Qty: 21 0RF Continued albuterol sulfate [Ventolin HFA] 90 mcg/actuation Hfa Aerosol Inhaler 2 puff inhalation Q4H PRN (Reason: wheeze) Qty: 1 0RF ferrous sulfate 324 mg (65 mg iron) Tablet,Delayed Release (Dr/Ec) 324 mg PO DAILY Qty: 30 0RF metoprolol succinate 25 mg Tablet Extended Release 24 Hr 25 mg PO DAILY Qty: 14 1RF Protocol: Hold for SBP/HR < HOLD for SBP < : 90 HOLD for HR < : 60 cyanocobalamin (vitamin B-12) 500 mcg Tablet 500 mcg PO DAILY Qty: 30 0RF folic acid 1 mg Tablet 1 mg PO DAILY Qty: 30 0RF multivitamin [Daily-Jamin] Tablet 1 tab PO DAILY Qty: 30 0RF thiamine mononitrate (vit B1) 100 mg Tablet 100 mg PO DAILY Qty: 30 0RF pantoprazole 40 mg tablet,delayed release (DR/EC) 1 tab PO DAILY Qty: 30 0RF bupropion HCl 75 mg tablet 75 mg PO BID Qty: 28 1RF benztropine 1 mg tablet 1 mg PO BID PRN (Reason: Extrapyramidal Effects/Symptoms) Qty: 28 1RF nicotine 21 mg/24 hr patch 24 hour 1 patch topical DAILY Qty: 30 0RF prazosin 2 mg capsule 2 mg PO BEDTIME Qty: 14 1RF nicotine (polacrilex) 4 mg lozenge 4 mg PO QID PRN (Reason: Nicotine Cravings) Qty: 72 0RF chlorpromazine 200 mg tablet 200 mg PO BEDTIME Qty: 7 4RF naloxone [Narcan] 4 mg/actuation spray,non-aerosol 4 mg intranasal Q2M PRN (Reason: opioid overdose) Qty: 2 0RF Rx Instructions: spray 1 dose into ONE nostril; alternate nostrils w each dose until help arrives Discontinued oxycodone-acetaminophen 5-325 mg tablet 1 tab PO Q6H PRN (Reason: severe pain) chlorpromazine 100 mg Tablet 100 mg PO TID Qty: 21 4RF levothyroxine 25 mcg Tablet 25 mcg PO DAILY@0700 Qty: 30 0RF buspirone 15 mg tablet 15 mg PO TID Qty: 21 4RF melatonin 3 mg tablet 9 mg PO DAILY PRN (Reason: Insomnia) Qty: 42 1RF gabapentin 100 mg capsule 100 mg PO BID Qty: 28 1RF diazepam [Valium] 2 mg tablet 2 mg PO DAILY PRN (Reason: anxiety) Qty: 7 2RF Discharge Orders: Discharge Order (Routine); Ordered 05/11/23 Ordered By: Jacy Mendoza Diet: Advance to usual diet Activity on Discharge: As tolerated Stand Alone Forms: Patient Portal Discharge page, Community Support Care Plan Goals: Mood and Behavioral Stabilization Sobriety Health Concerns: Mood and Behavioral Stabilization Sobriety Plan of Treatment: Daily call to [facility] to check availability. Take medications as directed Attend scheduled appointments Assessment: Discharge to senior living today Pt is on a list for [facility] admission. He will need to call daily to see when his bed will be available. Discharge Date/Time: 05/11/23 11:45
== END 2023-05-11 11:45 | disposition home or self-care (01) | DRG 885 ==
LOC: HO.ED 04-28 08:52 → HO.PM5 04-28 15:47
PROVIDERS: Emergency Medicine; Physician Assistant Medical; Admitting Provider Clinical Nurse Specialist Psychiatric/Mental Health, Adult; Emergency Provider Emergency Medicine; Visit Provider Clinical Nurse Specialist Psychiatric/Mental Health, Adult
DX: F25.9 Schizoaffective disorder, unspecified (principal); F11.20 Opioid dependence, uncomplicated; F10.221 Alcohol dependence with intoxication delirium; K21.9 Gastro-esophageal reflux disease without esophagitis; F19.10 Other psychoactive substance abuse, uncomplicated; Y90.8 Blood alcohol level of 240 mg/100 ml or more; F17.210 Nicotine dependence, cigarettes, uncomplicated; Z20.822 Contact with and (suspected) exposure to COVID-19; Z71.6 Tobacco abuse counseling; Z79.899 Other long term (current) drug therapy
CPT/HCPCS: 36415; 71046; 73630; 80048; 80061; 80076; 80307; 81003; 82607; 82746; 83036; 83690; 83735; 84439; 84443; 84484; 85025; 87635; 93005; 99285; S9485

== ENCOUNTER → 2023-04-28 15:30 | Outpatient (BNV) | payer OTHER, SELFPAY | PROVIDERS: Admitting Provider Clinical Nurse Specialist Psychiatric/Mental Health, Adult; Emergency Provider Emergency Medicine; Visit Provider Clinical Nurse Specialist Psychiatric/Mental Health, Adult | DX: F25.9 Schizoaffective disorder, unspecified (principal); F19.90 Other psychoactive substance use, unspecified, uncomplicated; F10.20 Alcohol dependence, uncomplicated | CPT/HCPCS: 90792; 99231; 99232; 99239 ==

== ENCOUNTER 2023-07-07 09:19 | Emergency (ER) | payer OTHER, MEDICAID, SELFPAY ==
--- NOTE | ~2023-07-07 | XR_ITS ---
EXAMINATION: XR ANKLE, RIGHT CLINICAL INFORMATION: Right ankle pain. Previous fracture. COMPARISON: None available. TECHNIQUE: AP, lateral, and mortise views of the right ankle. FINDINGS: The ankle mortise and subtalar joints are normal. No visible acute fracture, dislocation or subluxation seen. There is mild lateral malleolar soft tissue swelling. A small calcaneal spur is noted. XR/XR ankle RT min 3V IMPRESSION: Tiny calcaneal heel spur. No visible acute fracture or dislocation seen.
[2023-07-07 09:46] VITALS: BP 134/91; PULSE 80; RESP 16; TEMP 36.7; O2SAT 97; BMI 23.0
--- OUTSIDE RECORDS SUMMARY | 2023-07-07 13:28 | XMS_ITS | Continuity of Care Document ---
Author Name Unknown Organization [facility] ter Address [address] [place] [id number]- Care Team Providers Care Digital Content Manager Name Role Phone Not on Staff, PCP Primary Care Physician Unavail able Encounter [facility] Date(s): 05/13/23 - 05/14/[address] [address]- Encounter Diagnosis Homeless(Final) - 05/14/23 Discharge Disposition: A-D/C Home Attending Physician: Jannie De La Vega MD Admitting Physician: Jannie De La Vega MD Referring Physician: Not on Staff, Referring [...] 03/10/17 Given pneumococcal 23-valent vaccine 02/18/17 Given 1Result Comment: [09/21/2018] [facility] [id number] 2Result Comment: [06/10/2017] [facility]: [id number] 3Result Comment: [09/09/2017] [facility]# [id number] 4Result Comment: [09/09/2017] [facility]# [id number] Medications Albuterol (Eqv-ProAir HFA) 90 mcg/inh inhalation aerosol 2 puffs, Inhalation, Every 6 hours, 0 Refills, Maintenance, 03/24/23 14:46:00 EDT, Partial fill upon patient request if the prescription is for a schedule II opioid drug. Start Date: 03/24/23 Status: Ordered amLODIPine 5 mg oral tablet 1 tablet [...] 03/16/23 14:08:00 EDT, Route to Pharmacy Electronically, [facility], Partial fill upon patient [...] Date: 08/08/22 Stop Date: 08/29/22 Status: Ordered naltrexone 50 mg oral tablet 1 tablet = 50 mg, By Mouth, Daily, # 30 tablet, 0 Refills, Maintenance, 03/24/23 14:46:00 EDT, Tablet, Partial fill upon patient request if the prescription is for a schedule II opioid drug. Start Date: 03/24/23 Status: Ordered pantoprazole 40 mg oral delayed release tablet 1 tablet = 40 mg, By Mouth, Daily, FOR GERD Start Date: 03/24/23 Status: Ordered prazosin 2 mg oral capsule 1 capsule = 2 mg, By Mouth, Daily at bedtime, FOR NIGHTMARES Start Date: 03/24/23 Status: Ordered pyridoxine 50 mg oral tablet 50 mg, By Mouth, Daily, # 30 tablet, Refills 0, Tot. Refills 0, Maintenance, 03/16/23 14:08:00 EDT,Route to Pharmacy Electronically, [facility], Partial fill upon patient request if the prescription is for a schedule II opioid drug., 18... Start Date: 03/16/23 Status: Ordered thiamine 100 mg oral tablet 100 mg, By Mouth, 2 times a day, # 30 tablet, Refills 0, Tot. Refills 0, Maintenance, 03/16/23 14:08:00 EDT, Route to Pharmacy Electronically, [facility], Partial fill upon patient request [...] D deficiency Confirmed Active 1While living in [place] Vital Signs Most recent to oldest [Reference Range]: 1 2 3 Height 185 cm (05/14/23 10:53 AM) 185 cm (05/14/23 1:08 AM) 185 cm (05/13/23 11:34 PM) Oxygen Saturation [94-100 %] 95 % (05/14/23 8:25 AM) 95 % (05/14/23 5:47 AM) 96 % (05/13/23 11:34 PM) Pulse Rate [55-90 bpm] 68 bpm (05/14/23 8:25 AM) 65 bpm (05/14/23 5:47 AM) 73 bpm (05/13/23 11:34 PM) Blood Pressure [90-138/55-84 mm Hg] 119/79mm Hg (05/14/23 8:25 AM) 114/76mm Hg (05/14/23 5:47 AM) 105/74mm Hg (05/13/23 11:34 PM) Respiratory Rate [16-30 br/min] 18 br/min (05/14/23 8:25 AM) 18 br/min (05/14/23 5:47 AM) 18 br/min (05/13/23 11:34 PM) Temperature [96.8-100.4 DegF] 97.3 DegF (05/14/23 8:25 AM) 97.3 DegF (05/14/23 5:47 AM) 98.1 DegF (05/13/23 11:34 PM) Mode of Delivery (Oxygen) Room air (05/14/23 8:25 AM) Room air (05/14/23 5:47 AM) Room air (05/13/23 11:34 PM) Blood pressure sites Arm, right (8/31/23 8:25 AM) Arm, right (05/14/23 5:47 AM) Arm, left (05/13/23 11:34 PM) Temperature Route Oral (05/14/23 8:25 AM) Oral (05/14/23 5:47 AM) Oral (05/13/23 11:34 PM) Dry Weight 79.5 kg (05/14/23 10:53 AM) 79.5 kg (05/14/23 1:08 AM) 79.5 kg (05/13/23 11:34 PM) Dry Weight Obtained Via Patient/family s tated (05/13/23 11:34 PM) Social History Social History Type Response Smoking Status Current every day sm sunnyer; Type: Cigarettes; Tobacco use times per day: 1 PPD now down to 1 pack/week; Number of years: 36; Total pack years: 36; Started at age: 15; entered on: 03/02/17 Sex Note * Kwesi Avalos MD: PERFORM Event Display: Patient Education Leaflets Authored Date: [id number] [facility] [place] ?? 35 [facility] [place] Department Community Half-Way Directory ?? EMERGENCY Shelters Important: Alcohol and drugs are absolutely forbidden in all shelters. ?? [facility] Half-Way ([facility]) [address] [place] [address] Adult men and women only- no children 3 meals day served-health care and dental clinic Referral: Walk-ins are accepted/ phone calls are preferred ?? [facility] Half-Way [address] [place], [place] [phone] Men only- [facility] emergency prison- reopening 11/2012 Referrals: Must line up by 3pm. funeral home general manager for intake. ?? [facility] [address] [place] [address] Adult men and women 2 meals per day/health care nurse Referral: Must contact intake by phone before coming ?? [facility] Half-Way [address] [place] [address] Adult men and women open Jul 1-January 12 3 meals day-must leave prison by 7am Referral: First come, first serve line up begins at 5:30pm ?? [facility] Emergency Half-Way [address] [place] [address] Adult men and women (one room for families with children) Referral: First come, first serve lineup begins at 3:30pm ?? [facility] [address] [place], [place]?? [address] Men only Referral:?? $300.00/month fee (1st??month jonathan period available) ?? [facility] [address] [place], [place]?? [address] Men only ?? [facility] [place] [address] [facility] ?? [place] [address] Women and children ?? [facility] Half-Way [facility] [address] [place], [place]?? Women and children ?? [facility] (relocation and support) [place], [place] (Hotline) Emergency Abuse and Rape crises support, prison ?? [facility] Rape/Domestic Violence Hotline Half-Way referral ? [facility]) [address] [place], [place]?? [address] Lunch and Dinner provided (Mon ???Sat: Noon and 5pm; Sun: 1 and 5pm) ?? Additional Half-Way Options ?? [facility] Emergency Half-Way [address] [facility] [phone] Male + [place] [address] ? [facility] [address] [phone] Male + Female Beds [facility] [address] [address] [facility] [address] [phone] ?? [facility] [address] [address] Half-Way [address] [facility] [phone] ?? [facility] [address] ?[place] [facility] Half-Way [facility] [phone] ?? [facility] [address] ? [place] [facility] [address] [facility] [phone] By Application Only/Must Call [facility] [address] ? [facility]?? [facility] [phone] ? [facility] [address] [address] [facility] [address] [facility] [phone] ?? [facility] [address] ? [facility] COT Half-Way [address] [facility] [phone] ?? [facility] [address] ?[facility] ?? [phone] ?[facility]? [place], [place]?? [phone]? Emergency short stay, women, men, families ? [place], [place]?? [phone] Families, adults, men, LGBTQ ? [address] [facility] Half-Way?[place]?[phone]?[facility] Half-Way ??[place] [address]?[phone]?[facility] [place], [place] [phone] ?[place], [place] ??[phone] ? [address] Half-Way [place], [place] [phone] ? [facility] [place], [place] [phone] [address] Half-Way [place], [place] [phone] ? [facility] Half-Way [place], [place] [phone] ?[facility] ??[place], [place] ??[phone] ? Patient Care team information Care Team Personnel Name: Zaida Hall RN Position: [facility] RN Member Role: Primary Care Nurse Name: Yuly Vásquez RN Position: [facility] RN Member Role: Primary Care Nurse Name: Tootie Tamayo RN Position: [facility] RN Member Role: Primary Care Nurse Name: Priya Herron RN Position: [facility] RN Member Role: Primary Care Nurse Name: Alyson Cage NP Position: [facility] PCO Associate Professional Member Role: Primary Care Nurse Address: Address: [address] [place] [address]- Name: Gulshan Moulton RN Position: [facility] RN Member Role: Primary Care Nurse Name: Farnaz Adames Position: [facility] AMB Nurse Member Role: Lifetime Consulting Physician Name: Kristofer Segundo RN Position: [facility] RN Member Role: Primary Care Nurse Name: Not on Staff, PCP Position: [facility] Physician (General Medicine) Member Role: PCP Name: Sarah Jackson RN Position: [facility] RN Member Role: Primary Care Nurse Name: Rita Edmonds RN Position: [facility] AMB Nurse Member Role: Primary Care Nurse Name: Sumit Salas RN Position: [facility] RN Member Role: Primary Care Nurse Name: Rocio Renner RN Position: [facility] RN Supv Member Role: Primary Care Nurse Name: Sabra Segal Position: [facility] ED TA [facility] Name: Kwesi Avalos MD Position: [facility] Resident Member Role: ED Resident Address: Address: [address] [place] [address]- Name: Jannie De La Vega MD Position: [facility] ED Medicine MD Member Role: Admitting Physician Address: Address: [address] [place] [address] Name: Bailey Jacques RN Position: [facility] ED RN W/OE and Tasks Member Role: Patient Care Provider Care Team Related Persons Name: TANIA COYNE Address: [place] [address] Name: ROMERO SOLER Address: [address] [address]
--- OUTSIDE RECORDS SUMMARY | 2023-07-07 13:29 | XMS_ITS | Continuity of Care Document ---
Author Name Unknown Organization [facility] ter Address [address] [place] [id number]- Care Team Providers Care Vacuum Frame Operator Name Role Phone Not on Staff, PCP Primary Care Physician Unavail able Encounter [facility] Date(s): 05/11/23 - 05/13/[address] [id number]- Encounter Diagnosis Alcohol use(Final) - 05/12/23 JEWEL (acute kidney injury)(Final) - 05/12/23 Discharge Disposition: A-D/C Home Attending Physician: Noah Baca MD Admitting Physician: Noah Baca MD Referring Physician: Not on Staff, Referring [...] 23-valent vaccine 02/18/17 Given 1Result Comment: [09/21/2018] [facility] [id number] 2Result Comment: [06/10/2017] [facility]: [id number] 3Result Comment: [09/09/2017] [facility]# [id number] 4Result Comment: [09/09/2017] [facility]# [id number] Medications Albuterol (Eqv-ProAir HFA) 90 mcg/inh inhalation aerosol 2 puffs, Inhalation, Every 6 hours, 0 Refills, Maintenance, 03/24/23 14:46:00 EDT, Partial fill upon patient request if the prescription is for a schedule II opioid drug. Start Date: 03/24/23 Status: Ordered amLODIPine 5 mg oral tablet 5 mg, Tablet, By Mouth, 05/13/23 9:00:00 EDT Start Date: 05/13/23 Stop Date: 05/13/23 Status: Completed amLODIPine 5 mg oral tablet [...] 03/16/23 14:08:00 EDT, Route to Pharmacy Electronically, [facility], Partial fill upon patient request if theprescription is for a schedule II opioid drug., 185... Start Date: 03/16/23 Status: Ordered gabapentin 100 mg oral capsule 100 mg, Capsule, By Mouth, 05/13/23 9:00:00 EDT Start Date: 05/13/23 Stop Date: 05/13/23 Status: Completed gabapentin 100 mg oral capsule 100 mg, [...] ibuprofen 800 mg oral tablet 800 mg, Tablet, By Mouth, 05/13/23 9:00:00 EDT Start Date: 05/13/23 Stop Date: 05/13/23 Status: Completed ibuprofen 800 mg oral tablet 800 mg, 1, tablet, By Mouth, 3 times a day, FOR RIGHT BROKEN ANKLE Start Date: 03/24/23 Status: Ordered metoprolol 50 mg oral tablet, extended release 50 mg, XL Tablet, By Mouth, 05/13/23 9:00:00 EDT Start Date: 05/13/23 Stop Date: 05/13/23 Status: Completed metoprolol 50 mg oral tablet, [...] Maintenance, 03/16/23 14:08:00 EDT,Route to Pharmacy Electronically, [facility], Partial fill upon patient request if the prescription is for a schedule II opioid drug., 18... Start Date: 03/16/23 Status: Ordered thiamine 100 mg oral tablet 100 mg, By Mouth, 2 times a day, # 30 tablet, Refills 0, Tot. Refills 0, Maintenance, 03/16/23 14:08:00 EDT, Route to Pharmacy Electronically, [facility], Partial fill upon patient request [...] D deficiency Confirmed Active 1While living in [place] Results Radiology Reports * Exam Date Time Procedure Performing Provider Status 05/12/23 9:43 AM Shoulder Min 2 Views Left Suri Skinner (Verified) Notes: (Shoulder Min 2 Views Left) Reason For Exam: L shoulder pain;Pain RESULT: Shoulder Min 2 Views Left Shoulder Min 2 Views Left, 3 views Hx of Present Illness: pt stated that he doesn't want to live anymore . pt endorses visual and auditory hallucinations telling him to end his life. stated that he wants to throw himself in [place].; Reason: Pain; L shoulder pain; Clinical Question(s): Fracture COMPARISON: None. FINDINGS: No fracture or dislocation. No arthritic change of the glenohumeral joint. Normal AC joint and portions of the clavicle included on the exam. No calcification of the rotator cuff. IMPRESSION: No acute osseous abnormality is seen involving the left shoulder. WSN: [id number] Ordering Physician: Gulshan Cavazos Dictated By: Andi Allison MD, V Dictated Date/Time: 05/12/23 9:47 am Reviewed By: Andi Allison MD, V Signed By: Andi Allison MD, V Signed Date/Time: 05/12/23 9:47 am Transcribed By: MANDA Transcribed Date/Time: 05/12/23 9:46 am * Exam Date Time Procedure Performing Provider Status 05/12/23 6:44 AM Chest 2 Views Frontal and Lat Jose Gupta; Auth (Verified) Notes: (Chest 2 Views Frontal and Lat) Reason For Exam: Chest Pain;Other: RESULT: Chest 2 Views Frontal and Lat Chest 2 Views Frontal and Lat Hx of Present Illness: pt stated that he doesn't want to live anymore . pt endorses visual and auditory hallucinations telling him to end his life. stated that he wants to throw himself in [place].; Reason: Other:; Chest Pain; Clinical Question(s): Other:; Order Comment: Watch patient 05 12 23 @04:10 spoke to RN to f u on pt. RN states will bring patient over for xray. COMPARISON: 03/22/2023 FINDINGS: LINES AND TUBES: None. LUNGS AND PLEURA: Persistent and slightly increased right lower lung opacity. No pleural effusion. No pneumothorax. HEART, MEDIASTINUM AND JESSI: Heart is normal in size. Aorta is calcified. BONES AND SOFT TISSUES: No acute abnormality. Previous hardware placement at the right ribs. Healed deformity of multiple right rib fractures and lateral left rib fractures. IMPRESSION: Increased right lower lung opacity. Although this could represent atelectasis underlying aspiration/infection can have similar appearance. WSN: [id number] Ordering Physician: Dylan Gmoez Dictated By: Kenia Kraus MD Dictated Date/Time: 05/12/23 6:46 am Reviewed By: Kenia Kraus MD Signed By: Kenia Kraus MD Signed Date/Time: 05/12/23 6:46 am Transcribed By: MANAD Transcribed Date/Time: 05/12/23 6:45 am Vital Signs Most recent to oldest [Reference Range]: 1 2 3 4 Height 186 cm (8/30/23 4:11 PM) 186 cm (05/13/23 9:40 AM) 186 cm (05/12/23 8:39 PM) Weight 79 kg (05/13/23 4:11 PM) 79 kg (05/13/23 9:40 AM) 79 kg (05/12/23 8:39 PM) Oxygen Saturation [94-100 %] 98 % (05/13/23 4:11 PM) 95 % (05/13/23 9:40 AM) 97 % (05/12/23 8:39 PM) Pulse Rate [55-90 bpm] 66 bpm (05/13/23 4:11 PM) 78 bpm (05/13/23 9:40 AM) 78 bpm (05/13/23 9:39 AM) Body Mass Index [18.5-24.99 kg/m2] 22.84 kg/m2 (05/13/23 4:11 PM) 22.84 kg/m2 (05/13/23 9:40 AM) 22.84 kg/m2 (05/12/23 8:39 PM) Blood Pressure [90-138/55-84 mm Hg] 118/78mm Hg (05/13/23 4:11 PM) 112/82mm Hg (05/13/23 9:40 AM) 112/82mm Hg (05/13/23 9:39 AM) 112/82mm Hg (05/13/23 9:39 AM) Respiratory Rate [16-30 br/min] 18 br/min (05/13/23 4:11 PM) 18 br/min (05/13/23 3:33 PM) 18 br/min (05/13/23 3:33 PM) Temperature [96.8-100.4 DegF] 97.6 DegF (05/13/23 4:11 PM) 97.5 DegF (05/13/23 9:40 AM) 97.8 DegF (05/12/23 8:39 PM) Mode of Delivery (Oxygen) Room air (05/13/23 4:11 PM) Room air (05/13/23 9:40 AM) Room air (05/12/23 8:39 PM) Blood pressure sites Arm, right (05/13/23 4:11 PM) Arm, right (05/13/23 9:40 AM) Arm, left (05/12/23 8:39 PM) Temperature Route Oral (05/13/23 4:11 PM) Oral (05/13/23 9:40 AM) Oral (05/12/23 8:39 PM) Dry Weight 79 kg (05/13/23 4:11 PM) 79 kg (05/13/23 9:40 AM) 79 kg (05/12/23 8:39 PM) Weight Obtained Via Patient/family stated (05/11/23 8:45 PM) Social History Social History Type Response Smoking Status Current every day haily josefina; Type: Cigarettes; Tobacco use times per day: 1 PPD now down to 1 pack/week; Number of years: 36; Total pack years: 36; Started at age: 15; entered on: 03/02/17 Sex EKG study * Event Display: ECG 12-Lead Authored Date: [id number] Please click on pdf link to open report * Event Display: ECG 12-Lead Authored Date: [id number] Ventricular Rate: 84 BPM Atrial Rate: 84 BPM P-R Interval: 178 ms QRS Duration: 96 ms Q-T Interval: 396 ms QTC Calculation(Bazett): 467 ms P [place]: 51 degrees R [place]: -37 degrees T [place]: 3 degrees Normal sinus rhythm Left axis deviation Abnormal ECG When compared with ECG of 22-MAR-2023 15:04, No significant change was found Confirmed by JEAN CLAUDE WALLIS ([id number]) on 05/12/2023 6:41:55 AM Williamson: JEAN CLAUDE WALLIS Note * Noah Baca MD: PERFORM Event Display: Patient Education Leaflets Authored Date: [id number] Chronic Kidney Disease (CKD) ?? [id number] Chronic Kidney Disease (CKD) The role of the kidneys is to remove waste products and extra water from the blood.??When the kidneys don't work as they should, waste products start to build up in the blood. This is called chronic kidney disease (CKD). CKD means that you have kidney damage or a decrease in kidney function lastingat least 3 months. CKD allows extra water, waste, and toxins to build up in the body. This can eventually become life-threatening. You might need dialysis or a kidney transplant to stay alive. This most severe form is called end-stage renal disease. Diabetes is one of the leading causes of chronic renal failure. Other causes include high blood pressure, hardening of the arteries (atherosclerosis), lupus, inflammation of the blood vessels (vasculitis), and past viral or bacterial infections. Certain bntp-xac-axsyndl pain medicines can cause renal failure when taken often over a long period of time. These include aspirin, ibuprofen, and related anti-inflammatory medicines called NSAIDs (nonsteroidal anti- inflammatory drugs). Home care These guidelines will help you care for yourself at home: ??? If you have diabetes, talk??with yourhealthcare provider about keeping your blood sugar under control. Ask if you need to make and changes to your diet, lifestyle, or medicines. ??? If you have high blood pressure: o Take prescribed medicine to lower your blood pressure to the recommended goal of less than 130/80. o Start a regular exercise program that you enjoy.??Check with your healthcare provider to be sure your planned exerciseprogram is right for you. o Eat less salt (sodium).??Your healthcare provider can tell you how muchsalt per day is safe for you. ??? If you are overweight, talk??with your??healthcare provider??about a weight loss plan. ??? If you smoke, you must quit. Smoking makes kidney disease worse and puts you at risk for developing other serious illnesses.??Talk??with your healthcare provider about ways to help you quit.??For more information, visit the following links: o www.smokefree.gov/sites/default/files/pdf/tcvxanik-nhh-ecm-accessible.pdf o www.smokefree.gov o www.cancer.org/healthy/stayawayfromt obacco/guidetoquittingsmoking ??? Most people with??CKD need to follow a special diet. Make sure you understand yours. In general, you will need to limit protein, salt, potassium, and phosphorus.??You also need to limit how much fluid you drink. ??? CKD is a risk factor for heart disease. Talk??with your healthcare provider about any other risk factors you might have and what you can do to lessenthem. ??? Talk??with your healthcare provider about any medicines you are taking to find out if they need to be reduced or stopped. ??? For your own safety, check with your healthcare provider beforetaking any medicines or supplements. Don't use the following othq-xnh-qodszue medicines. Or consultyour healthcare provider before using them: o Aspirin and NSAIDs such as ibuprofen or naproxen. Using acetaminophen for fever or pain is OK. o Laxatives and antacids containing magnesium or aluminum o Fleet or phospho-soda enemas containing phosphorus o Certain stomach acid-blocking medicine such as cimetidine or ranitidine?? o Decongestants containing pseudoephedrine?? o Herbal supplements ?? Follow-up care Follow up with your healthcare provider as advised. Visit these websites to learn more: ??? [place] [employer] at www.aakp.org ??? National Kidney Foundation at www.kidney.org ??? [place] [employer] at www.kidneyfund.org ??? National Kidney Disease Education Program at www.nkdep.nih.gov If an X-ray, ECG (electrocardiogram), or other diagnostic test was taken, you'll be told of any newfindings that may affect your care. ?? Call 911 Call 911 right away if any of these occur: ??? Severe weakness, dizziness, fainting, drowsiness, orconfusion ??? Chest pain or shortness of breath ??? Heart beating fast, slow, or irregularly ?? When to get medical advice Call your healthcare provider right away if you have any of these: ??? Upset stomach (nausea) or vomiting ??? Fever??of 100.4??F (38??C) or higher, or as advised by your provider ??? Unexpected weight gain or swelling in the legs, ankles, or around the eyes ??? Not peeing a lot, or not peeing at all ??? New symptoms or symptoms that get worse ?? Last Reviewed Date: 2022 ?? 7546-9802 [employer]. All rights reserved. This information is not intended as a substitute for professional medical care. Always follow your healthcare professional's instructions. ?? Patient Care team information Care Team Personnel Name: Zaida Hall RN Position: [facility] RN Member Role: Primary Care Nurse Name: Yuly Vásquez RN Position: S RN Member Role: Primary Care Nurse Name: Tootie Tamayo RN Position: [facility] RN Member Role: Primary Care Nurse Name: Gopal RN, Priya Position: [facility] RN Member Role: Primary Care Nurse Name: Alyson Cage NP Position: [facility] PCO Associate Professional Member Role: Primary Care Nurse Address: Address: [address] [place] [address]- Name: Gulshan Moulton RN Position: [facility] RN Member Role: Primary Care Nurse Name: Farnaz Adames Position: [facility] AMB Nurse Member Role: Lifetime Consulting Physician Name: Kristofer Segundo RN Position: [facility] RN Member Role: Primary Care Nurse Name: Not on Staff, PCP Position: [facility] Physician (General Medicine) Member Role: PCP Name: Sarah Jackson RN Position: [facility] RN Member Role: Primary Care Nurse Name: Rita Edmonds RN Position: [facility] AMB Nurse Member Role: Primary Care Nurse Name: Sumit Salas RN Position: [facility] RN Member Role: Primary Care Nurse Name: Rocio Renner RN Position: [facility] RN Supv Member Role: Primary Care Nurse [facility] Attending Position: [facility] ED Attendings Patient Name: Fang Ruiz RN Position: [facility] ED RN W/OE and Tasks Member Role: Patient Care Provider Name: Noah Baca MD Position: [facility] ED Medicine MD Member Role: Admitting Physician Address: Address: [address] [place] [place] [address] Palliative [place] [address]- [place] Care Team Related Persons Name: TANIA COYNE Address: [place] [address] Name: ROMERO SOLER Address: home [address] [place] [id number]
--- NOTE | 2023-07-07 13:32 | ED_ITS ---
HPI - General Adult General Chief complaint: General Medical Stated complaint: Allergic reaction/needs r foot looked at Time Seen by Provider: 07/07/23 13:32 Source: patient Mode of arrival: ambulatory Limitations: no limitations History of Present Illness HPI narrative: 58-year-old male history of hypertension, high cholesterol, hypothyroidism, GERD, anxiety, insomnia, depression, schizoaffective disorder, substance use disorder, alcohol use disorder who presents emergency department for evaluation of right ankle pain, dry itchy skin on his hands and forearms and medication refills. The patient states that over the last 2 weeks he has had very dry skin on his hands and forearms, he states that these areas are very itchy any has small blisters that he has been picking. Patient denies having a skin condition such as eczema or psoriasis. The patient also states that he wants an x-ray of his right ankle. He states that he fractured his ankle in December 2022 and then fractured the same ankle and he states that several months later he fracture his right foot. He states that he has been wearing a walking boot since then, he states that he has minimal pain and he is requesting an x-ray to see if the bone is healed. The patient never followed up with orthopedics or primary care doctor. The patient states that he has multiple medications that he has run out of. He does not have a primary care doctor. He is requesting refills of his medications for his chronic medical conditions. Related Data Previous Rx's Medication Instructions Recorded albuterol sulfate 90 mcg/actuation 2 puff inhalation Q4H PRN wheeze 04/21/23 aerosol inhaler (Ventolin HFA) #1 inhaler benztropine 1 mg tablet 1 mg PO BID PRN Extrapyramidal 04/21/23 Effects/Symptoms #28 tabs bupropion HCl 75 mg tablet 75 mg PO BID #28 tabs 04/21/23 cyanocobalamin (vitamin B-12) 500 500 mcg PO DAILY #30 tabs 04/21/23 mcg tablet ferrous sulfate 324 mg (65 mg 324 mg PO DAILY #30 tabs 04/21/23 iron) tablet,delayed release folic acid 1 mg tablet 1 mg PO DAILY #30 tabs 04/21/23 metoprolol succinate 25 mg 25 mg PO DAILY #14 tabs 04/21/23 tablet,extended release 24 hr multivitamin (Daily-Jamin tablet) 1 tab PO DAILY #30 tabs 04/21/23 nicotine (polacrilex) 4 mg buccal 4 mg PO QID PRN Nicotine Cravings 04/21/23 lozenge #72 ea nicotine 21 mg/24 hr daily 1 patch topical DAILY #30 ea 04/21/23 transdermal patch pantoprazole 40 mg tablet,delayed 1 tab PO DAILY #30 tabs 04/21/23 release prazosin 2 mg capsule 2 mg PO BEDTIME #14 caps 04/21/23 thiamine mononitrate (vit B1) 100 100 mg PO DAILY #30 tabs 04/21/23 mg tablet amlodipine 5 mg tablet 5 mg PO DAILY #7 tabs 05/11/23 atorvastatin 10 mg tablet 10 mg PO BEDTIME #7 tabs 05/11/23 chlorpromazine 200 mg tablet 200 mg PO BEDTIME #7 tabs 05/11/23 clonidine HCl 0.2 mg tablet 0.2 mg PO TID #21 tabs 05/11/23 gabapentin 100 mg capsule 100 mg PO TID #21 caps 05/11/23 lidocaine 4 % topical patch 1 patch transdermal DAILY #10 ea 05/11/23 (Lidocaine Pain Relief) melatonin 3 mg tablet 9 mg (3 x 3 mg) PO DAILY PRN 05/11/23 Insomnia #21 tabs mirtazapine 30 mg tablet 30 mg PO BEDTIME #7 tabs 05/11/23 naloxone 4 mg/actuation nasal 4 mg intranasal Q2M PRN opioid 05/11/23 spray (Narcan) overdose #2 ea nicotine (polacrilex) 2 mg gum 4 mg buccal Q2H PRN Nicotine 05/11/23 Cravings #50 ea nicotine 21 mg/24 hr daily 21 mg transdermal DAILY #30 ea 05/11/23 transdermal patch amlodipine 5 mg tablet 5 mg PO DAILY 30 days #30 tabs 07/07/23 atorvastatin 10 mg tablet 10 mg PO BEDTIME 30 days #30 tabs 07/07/23 gabapentin 300 mg capsule 300 mg PO BID 30 days #60 caps 07/07/23 hydroxyzine HCl 50 mg tablet 50 mg PO TID PRN itching, anxiety 07/07/23 30 days #90 tabs levothyroxine 25 mcg capsule 25 mcg PO DAILY 30 days #30 caps 07/07/23 metoprolol succinate 25 mg 25 mg PO DAILY 30 days #30 tabs 07/07/23 tablet,extended release 24 hr prednisone 20 mg tablet 60 mg (3 x 20 mg) PO DAILY 7 days 07/07/23 #21 tabs triamcinolone acetonide 0.5 % 1 appl topical BID Apply to dry 07/07/23 topical ointment skin on hands and arms #30 grams Allergies Allergy/AdvReac Type Severity Reaction Status Date / Time aspirin [ASA] Allergy Unknown FACIAL Verified 07/07/23 09:50 SWELLING Penicillins [PENICILLINS] Allergy Unknown HIVES Verified 07/07/23 09:50 trazodone Allergy Anaphylaxis Verified 07/07/23 09:50 tramadol [TRAMADOL] AdvReac Unknown NAUSEA & Verified 07/07/23 09:50 VOMITING Review of Systems 2 Review of Systems: Yes all other systems are reviewed and are negative [facility] Past Medical History [facility] Narrative: Past medical history: Reviewed below, patient also has hypertension, high cholesterol, anxiety. Social history: He states he is currently living in a sober house near the hospital. He denies tobacco, alcohol and drug use. Medical History (Updated 07/07/23 @ 14:25 by Micky Donaldson MD) Alcohol use disorder, severe, dependence Polysubstance use disorder Schizoaffective disorder Opiate dependence Colitis Chronic diarrhea Heavy tobacco smoker GERD (gastroesophageal reflux disease) HTN (hypertension) History of colitis Family History Family History Mother Alzheimer disease Multiple sclerosis Social History Social History Household Members: None Housing: Other Housing Other:: hotel Do you presently have visiting nurse or other home services: No Alcohol intake: current Alcohol intake frequency: 3 or more drinks per day Patient Tobacco Use Status: Current everyday Tobacco user Tobacco use type: Cigarette Cigarette Packs Per Day: 1 Cigarettes Per Day: 20.0 Years Smoked: 30 e-Cigarette/Vaping Use: Never Used Second Hand Smoke Exposure: No Substance Use Type: Marijuana Advance Directives: Yes Advance Directives Information Provided: Yes Advance Directives on File: No service: No Sexual orientation: Straight/Heterosexual Physical Exam ED Vital Signs: Vital Signs - 24 hr 07/07/23 09:46 Temperature 98.0 F Pulse Rate 80 Respiratory Rate 16 Blood Pressure 134/91 H Pulse Oximetry 97 Oxygen Delivery Method Room Air BMI result Body Mass Index 23.0 Vital signs revealed an elevated blood pressure 134/91 otherwise unremarkable Exam: General: Awake, alert in no distress Head: Normocephalic, atraumatic EENT: PERRL, Lids normal, sclera normal, conjunctiva normal, nose normal , ears normal, throat without erythema or exudates Neck: Supple, no adenopathy, no trachea midline or C-spine tenderness Lung: breath sounds symmetric, no wheezing, rales or rhonchi Chest: symmetric movement, nontender Heart: regular rate and rhythm, normal S1, S2 no murmurs or rubs Abdomen: soft, non-tender, nondistended, normal bowel sounds Back: no vertebral tenderness, no CVAT Extremities: Patient has a rigid walking boot on his right foot and ankle, patient does some soft tissue swelling over the lateral malleolus with no significant tenderness, extremities neurovascular intact Skin: Patient has very dry cracked skin of his hands and forearms with multiple areas that he has picked out, skin is consistent with a nonspecific dermatitis Neuro: Awake, alert, oriented, normal speech Psych: Pleasant, cooperative Medical Decision Making Medical Decision Making MDM Narrative: 58-year-old male history of hypertension, high cholesterol, hypothyroidism, GERD, anxiety, insomnia, depression, schizoaffective disorder, substance use disorder, alcohol use disorder who presents emergency department for evaluation of right ankle pain-reports that he had a fracture of the right ankle in December and then several weeks later but never followed up with orthopedic, dry itchy skin on his hands and forearms and medication refills. Patient's vital signs did reveal a mildly elevated blood pressure. The patient's skin on his hands and forearm are consistent with a non specific dermatitis. Patient does have some soft tissue swelling over right ankle lateral malleolus but no significant tenderness and he is able to walk without any difficulty. I did order an x-ray of the right ankle to evaluate for healing verses nonhealing fracture. Patient will be started on prednisone 60 mg once a day for 7 days for his dermatitis, was also given a prescription for Kenalog 0.5% ointment to apply to his hands and forearms twice a day the weeks. I did refill locations following medications: Levothyroxine, atorvastatin, metoprolol, hydroxyzine, gabapentin, amlodipine. I told the patient I could only give a 1 month supply and that he needs to get a PCP. I did give him our referral line and the [facility] number as well. My interpretation of the patient's right ankle x-ray is well-healed distal fibular fracture. I did review the patient's foot x-ray from 04/29/2023, patient had a small fracture of the head of the 5th metatarsal, patient has no pain in this area at this time therefore I believe that it is well-healed as well. Differential Diagnosis Differential Diagnoses: The differential diagnosis associated with the presentation includes Differential diagnosis includes was not limited to eczema, psoriasis, nonspecific dermatitis, nonhealing right ankle fracture, healing right ankle fracture, right ankle sprain Independent Interpretation I performed an independent interpretation of an: Plain X-Ray Interpretation: My interpretation patient's right ankle x-rays as follows: Well-healed distal fibular fracture Discharge Plan Discharge Clinical Impression: Dermatitis, Encounter for medication refill Fracture of fifth metatarsal bone of right foot with routine healing Qualifiers: Fracture type: closed Fracture alignment: nondisplaced Qualified Code(s): S 92.354D - Nondisplaced fracture of fifth metatarsal bone, right foot, subsequent encounter for fracture with routine healing Fracture of distal end of right fibula with routine healing Qualifiers: Fracture type: closed Fracture morphology: unspecified fracture morphology Q ualified Code(s): S82.831D - Other fracture of upper and lower end of right fibula, subsequent encounter for closed fracture with routine healing Patient Disposition: Home, Self-Care Additional Instructions: You have a well-healed fracture of the right distal fibula(outside part of the ankle) on today's x-ray. You have a well-healed fractured of the right 5th metatarsal (pinky bone of the foot) on today's x-ray. You no longer need to wear the walking boot. Your skin is very dry, this is called a nonspecific dermatitis and has off caused by your immune system reacting to very dry skin which then make sure dry skin worse The treatment is to put you on oral and topical steroids. Take prednisone 20 mg pills, 3 pills once a day for 7 days. While you are taking prednisone, do not take any NSAIDs (Motrin, Advil, ibuprofen, Aleve, naproxen). Use Kenalog (triamcinolone) 0.5% ointment, apply thin layer to your hands and arm twice a day for 2 weeks. Do not pick at the blisters, if you pick at the blisters, this could cause an infection. I did refill your medications, I can only give you a 1 month supply. Try calling the following numbers to see if you can get a primary care provider to help you with your medical problem and help refill your medications. [facility] PCP referral line [facility] Adult primary care and family medicine [facility] Prescriptions: New hydroxyzine HCl 50 mg tablet 50 mg PO TID PRN (Reason: itching, anxiety) 30 Days Qty: 90 0RF gabapentin 300 mg capsule 300 mg PO BID 30 Days Qty: 60 0RF amlodipine 5 mg tablet 5 mg PO DAILY 30 Days Qty: 30 0RF levothyroxine 25 mcg capsule 25 mcg PO DAILY 30 Days Qty: 30 0RF atorvastatin 10 mg tablet 10 mg PO BEDTIME 30 Days Qty: 30 0RF metoprolol succinate 25 mg tablet extended release 24 hr 25 mg PO DAILY 30 Days Qty: 30 0RF prednisone 20 mg tablet 60 mg PO DAILY 7 Days Qty: 21 0RF triamcinolone acetonide 0.5 % ointment 1 appl topical BID Qty: 30 0RF No Action albuterol sulfate [Ventolin HFA] 90 mcg/actuation Hfa Aerosol Inhaler 2 puff inhalation Q4H PRN (Reason: wheeze) Qty: 1 0RF ferrous sulfate 324 mg (65 mg iron) Tablet,Delayed Release (Dr/Ec) 324 mg PO DAILY Qty: 30 0RF metoprolol succinate 25 mg Tablet Extended Release 24 Hr 25 mg PO DAILY Qty: 14 1RF Protocol: Hold for SBP/HR < HOLD for SBP < : 90 HOLD for HR < : 60 cyanocobalamin (vitamin B-12) 500 mcg Tablet 500 mcg PO DAILY Qty: 30 0RF folic acid 1 mg Tablet 1 mg PO DAILY Qty: 30 0RF multivitamin [Daily-Jamin] Tablet 1 tab PO DAILY Qty: 30 0RF thiamine mononitrate (vit B1) 100 mg Tablet 100 mg PO DAILY Qty: 30 0RF pantoprazole 40 mg tablet,delayed release (DR/EC) 1 tab PO DAILY Qty: 30 0RF bupropion HCl 75 mg tablet 75 mg PO BID Qty: 28 1RF benztropine 1 mg tablet 1 mg PO BID PRN (Reason: Extrapyramidal Effects/Symptoms) Qty: 28 1RF nicotine 21 mg/24 hr patch 24 hour 1 patch topical DAILY Qty: 30 0RF prazosin 2 mg capsule 2 mg PO BEDTIME Qty: 14 1RF nicotine (polacrilex) 4 mg lozenge 4 mg PO QID PRN (Reason: Nicotine Cravings) Qty: 72 0RF nicotine 21 mg/24 hr Patch 24 Hour 21 mg transdermal DAILY Qty: 30 0RF nicotine (polacrilex) 2 mg Gum 4 mg buccal Q2H PRN (Reason: Nicotine Cravings) Qty: 50 0RF atorvastatin 10 mg Tablet 10 mg PO BEDTIME Qty: 7 0RF amlodipine 5 mg Tablet 5 mg PO DAILY Qty: 7 0RF Protocol: Hold for SBP< HOLD for SBP < : 90 clonidine HCl 0.2 mg Tablet 0.2 mg PO TID Qty: 21 0RF Protocol: Hold for SBP< HOLD for SBP < : 90 lidocaine [Lidocaine Pain Relief] 4 % Adhesive Patch,Medicated 1 patch transdermal DAILY Qty: 10 0RF melatonin 3 mg Tablet 9 mg PO DAILY PRN (Reason: Insomnia) Qty: 21 0RF mirtazapine 30 mg Tablet 30 mg PO BEDTIME Qty: 7 0RF gabapentin 100 mg Capsule 100 mg PO TID Qty: 21 0RF chlorpromazine 200 mg tablet 200 mg PO BEDTIME Qty: 7 4RF naloxone [Narcan] 4 mg/actuation spray,non-aerosol 4 mg intranasal Q2M PRN (Reason: opioid overdose) Qty: 2 0RF Rx Instructions: spray 1 dose into ONE nostril; alternate nostrils w each dose until help arrives
== END 2023-07-07 14:40 | disposition home or self-care (01) ==
PROVIDERS: Emergency Provider Emergency Medicine Emergency Medical Services
DX: L30.9 Dermatitis, unspecified (principal); S92.354D Nondisplaced fracture of fifth metatarsal bone, right foot, subsequent encounter for fracture with routine healing; S82.831D Other fracture of upper and lower end of right fibula, subsequent encounter for closed fracture with routine healing; X58.XXXD Exposure to other specified factors, subsequent encounter; I10 Essential (primary) hypertension; E78.5 Hyperlipidemia, unspecified; F25.9 Schizoaffective disorder, unspecified; F17.210 Nicotine dependence, cigarettes, uncomplicated; F12.90 Cannabis use, unspecified, uncomplicated; Z79.899 Other long term (current) drug therapy
CPT/HCPCS: 73610; 99283; 99284

== ENCOUNTER 2023-07-21 09:22 | Emergency (ER) | payer OTHER, MEDICAID, SELFPAY ==
[2023-07-21 10:01] VITALS: BP 131/85; PULSE 96; RESP 20; TEMP 36.6; O2SAT 95; BMI 24.2
--- NOTE | 2023-07-21 13:05 | ED_ITS ---
HPI - Skin/Abscess/Foreign Bdy General Chief complaint: Skin/Abscess/Foreign Body Stated complaint: Skin infection Time Seen by Provider: 07/21/23 11:43 Source: patient and RN notes reviewed Mode of arrival: ambulatory Limitations: no limitations History of Present Illness HPI narrative: 58-year-old male history of hypertension, high cholesterol, hypothyroidism, GERD, anxiety, insomnia, depression, schizoaffective disorder, substance use disorder, alcohol use disorder who presents emergency department with complaints of bilateral arm rash x one week. Patient was sitting in the emergency department one week ago due to a rash. He was discharged on Prednisone which he took as directed. He states that his symptoms seem to improve however he continued to inject the rash, and has noticed increased redness, swelling, and drainage from the area. He endorses some chills, no fevers. Denies headaches, chest pain, shortness of breath, abdominal pain, nausea, vomiting or diarrhea. He denies IV drug abuse. No other complaints or concerns at this time. MD complaint: rash Onset (ago): week(s) Location: generalized Severity: moderate Quality: burning and aching Pain Consistency: constant Relieving factors: none Exacerbating factors: none Context: none Associated symptoms: chills Treatments prior to arrival: none Related Data Previous Rx's Medication Instructions Recorded albuterol sulfate 90 mcg/actuation 2 puff inhalation Q4H PRN wheeze 04/21/23 aerosol inhaler (Ventolin HFA) #1 inhaler benztropine 1 mg tablet 1 mg PO BID PRN Extrapyramidal 04/21/23 Effects/Symptoms #28 tabs bupropion HCl 75 mg tablet 75 mg PO BID #28 tabs 04/21/23 cyanocobalamin (vitamin B-12) 500 500 mcg PO DAILY #30 tabs 04/21/23 mcg tablet ferrous sulfate 324 mg (65 mg 324 mg PO DAILY #30 tabs 04/21/23 iron) tablet,delayed release folic acid 1 mg tablet 1 mg PO DAILY #30 tabs 04/21/23 metoprolol succinate 25 mg 25 mg PO DAILY #14 tabs 04/21/23 tablet,extended release 24 hr multivitamin (Daily-Jamin tablet) 1 tab PO DAILY #30 tabs 04/21/23 nicotine (polacrilex) 4 mg buccal 4 mg PO QID PRN Nicotine Cravings 04/21/23 lozenge #72 ea nicotine 21 mg/24 hr daily 1 patch topical DAILY #30 ea 04/21/23 transdermal patch pantoprazole 40 mg tablet,delayed 1 tab PO DAILY #30 tabs 04/21/23 release prazosin 2 mg capsule 2 mg PO BEDTIME #14 caps 04/21/23 thiamine mononitrate (vit B1) 100 100 mg PO DAILY #30 tabs 04/21/23 mg tablet amlodipine 5 mg tablet 5 mg PO DAILY #7 tabs 05/11/23 atorvastatin 10 mg tablet 10 mg PO BEDTIME #7 tabs 05/11/23 chlorpromazine 200 mg tablet 200 mg PO BEDTIME #7 tabs 05/11/23 clonidine HCl 0.2 mg tablet 0.2 mg PO TID #21 tabs 05/11/23 gabapentin 100 mg capsule 100 mg PO TID #21 caps 05/11/23 lidocaine 4 % topical patch 1 patch transdermal DAILY #10 ea 05/11/23 (Lidocaine Pain Relief) melatonin 3 mg tablet 9 mg (3 x 3 mg) PO DAILY PRN 05/11/23 Insomnia #21 tabs mirtazapine 30 mg tablet 30 mg PO BEDTIME #7 tabs 05/11/23 naloxone 4 mg/actuation nasal 4 mg intranasal Q2M PRN opioid 05/11/23 spray (Narcan) overdose #2 ea nicotine (polacrilex) 2 mg gum 4 mg buccal Q2H PRN Nicotine 05/11/23 Cravings #50 ea nicotine 21 mg/24 hr daily 21 mg transdermal DAILY #30 ea 05/11/23 transdermal patch amlodipine 5 mg tablet 5 mg PO DAILY 30 days #30 tabs 07/07/23 atorvastatin 10 mg tablet 10 mg PO BEDTIME 30 days #30 tabs 07/07/23 gabapentin 300 mg capsule 300 mg PO BID 30 days #60 caps 07/07/23 hydroxyzine HCl 50 mg tablet 50 mg PO TID PRN itching, anxiety 07/07/23 30 days #90 tabs levothyroxine 25 mcg capsule 25 mcg PO DAILY 30 days #30 caps 07/07/23 metoprolol succinate 25 mg 25 mg PO DAILY 30 days #30 tabs 07/07/23 tablet,extended release 24 hr prednisone 20 mg tablet 60 mg (3 x 20 mg) PO DAILY 7 days 07/07/23 #21 tabs triamcinolone acetonide 0.5 % 1 appl topical BID Apply to dry 07/07/23 topical ointment skin on hands and arms #30 grams cephalexin 250 mg capsule 250 mg PO Q6H 7 days #28 caps 07/21/23 doxycycline hyclate 100 mg capsule 100 mg PO BID 7 days #14 caps 07/21/23 gabapentin 300 mg capsule 300 mg PO BID 30 days #60 caps 07/21/23 hydroxyzine HCl 50 mg tablet 50 mg PO TID PRN itching, anxiety 07/21/23 30 days #90 tabs Allergies Allergy/AdvReac Type Severity Reaction Status Date / Time aspirin [ASA] Allergy Unknown FACIAL Verified 07/21/23 10:03 SWELLING Penicillins [PENICILLINS] Allergy Unknown HIVES Verified 07/21/23 10:03 trazodone Allergy Anaphylaxis Verified 07/21/23 10:03 tramadol [TRAMADOL] AdvReac Unknown NAUSEA & Verified 07/21/23 10:03 VOMITING PMFSH Past Medical History Attestation statement: The following information was validated with the patient. Medical History Alcohol use disorder, severe, dependence Polysubstance use disorder Schizoaffective disorder Opiate dependence Colitis Chronic diarrhea Heavy tobacco smoker GERD (gastroesophageal reflux disease) HTN (hypertension) History of colitis Family History Family History Mother Alzheimer disease Multiple sclerosis Social History Social History Household Members: None Housing: Other Housing Other:: hotel Do you presently have visiting nurse or other home services: No Alcohol intake: never Patient Tobacco Use Status: Current everyday Tobacco user Tobacco use type: Cigarette Cigarette Packs Per Day: 1 Cigarettes Per Day: 20.0 Years Smoked: 30 Smoked in Last 30 Days: No e-Cigarette/Vaping Use: Never Used Second Hand Smoke Exposure: No Use of substances other than those prescribed or required for medical reasons: No Substance Use Type: Marijuana Advance Directives: No Advance Directives Information Provided: No service: No Sexual orientation: Straight/Heterosexual Physical Exam 2 Vital Signs: Vital Signs: Last Vital Signs Temp 97.9 F 07/21/23 10:01 Pulse 94 11/07/23 16:12 Resp 18 07/21/23 16:12 BP 135/87 07/21/23 16:12 Pulse Ox 95 07/21/23 16:12 O2 Del Method Room Air 07/21/23 16:12 BMI result Body Mass Index 24.2 Const: Other: General: Awake, alert, and oriented X3. No acute distress. HEENT: Normal inspection CVS: Normal heart rate and rhythm. Pulses normal. Respiratory: No respiratory distress Skin: Warm, dry, no rashes noted to exposed skin. Normal skin color. Normal skin turgor. Extremities: see below Neuro: Oriented X 3. No motor deficit. No sensory deficit. Course Reevaluation(s) Reevaluation #1: Labs have returned, no leukocytosis, chemistry within normal limits. Alt elevated at 74, alpha elevated at 146. This appears to be at his baseline. Lactic acid 1.0. Patient?s symptoms consistent with early Cellulitis and early Abscess. Will treat with double coverage keflex and doxycycline. He has a PCN allergy, will trial in ED to ensure no reaction. Educated the importance of keeping areas clean and dry, advised to apply warm compresses to the regions. Advise to return with any new or worsening symptoms. Patient also requesting medication refill for gabapentin and hydroxyzine. I sent over 1 month supply, however called pharmacy and cancelled as I had realized after that he had recently refilled these medications 2 weeks aago. Patient had these medications refilled last week, he was given a 30 day supply. He states that these were not prescribed to him correctly and needs more already as he has run out. I discussed with patient that this is inappropriate treatment in the emergency department and i cannot refill these medications. Patient understands and has an appointment with his primary care physician in August. Time: 16:07 Reevaluation #2: Patient tolerated Keflex without any allergic reaction. Patient given return precautions. Patient stable for discharge. Medications Administered Discontinued Medications Generic Name Dose Route Start Last Admin Trade Name Freq PRN Reason Stop Dose Admin Hydrocodone Bitart/Acetaminophen 1 tab 07/21/23 13:59 07/21/23 14:10 Hydrocodone Bit/Acetam 5/325 Tablet PO 07/21/23 14:00 1 tab ONCE ONE Administration Cephalexin HCl 250 mg 07/21/23 14:31 07/21/23 14:47 Cephalexin 250 Mg Capsule PO 07/21/23 14:32 250 mg ONCE ONE Administration Doxycycline Monohydrate 100 mg 07/21/23 14:37 07/21/23 14:47 Doxycycline Monohydrate 100 Mg Capsule PO 07/21/23 14:38 100 mg ONCE ONE Administration Medical Decision Making Medical Decision Making [facility] Narrative: 58-year-old male history of hypertension, high cholesterol, hypothyroidism, GERD, anxiety, insomnia, depression, schizoaffective disorder, substance use disorder, alcohol use disorder who presents emergency department with complaints of bilateral arm rash x one week. On arrival, vital signs within normal limits. Patient is non-toxic. Bilateral arms with early cellulitis and early absces, left arm actively draining. Areas not fluctuant, therefore unable to I&D today. He adamantly denies IV drug abuse. Given having some chills come without fevers, will obtain basic labs. Differential Diagnosis Differential Diagnoses: The differential diagnosis associated with the presentation includes Cellulitis, abscess, contact dermatitis, carbuncle Admission/Observation Consideration of admission/observation: Escalation of care including admission/observation considered Lab Data 07/21/23 13:44 07/21/23 13:28 Labs: Lab Results 07/21/23 07/21/23 Range/Units 13:28 13:44 WBC 10.1 (4.8-10.8) X10*3/uL RBC 4.49 L (4.60-5.80) X10*6/uL Hgb 13.4 L (14.0-18.0) g/dl Hct 40.6 L (42.0-52.0) % MCV 90.4 (80.0-98.0) fL MCH 29.8 (27.0-33.0) pg MCHC 33.0 (31.0-36.0) g/dl RDW 13.4 (11.0-16.0) % Plt Count 195 D (160-400) X10*3/uL MPV 9.6 (9.4-12.4) fL Immature Gran % (Auto) 0.5 H (0.0-0.4) % Neut % (Auto) 74.3 H (45-73) % Lymph % (Auto) 14.4 L (20-40) % [place] % (Auto) 7.9 (2-11) % Eos % (Auto) 2.3 (0-4) % Baso % (Auto) 0.6 (0-2) % Lymph # (Auto) 1.5 (1.2-4.9) X10*3/uL [place] # (Auto) 0.8 (0.1-1.2) X10*3/uL Eos # (Auto) 0.2 (0.0-0.4) X10*3/uL Baso # (Auto) 0.1 (0.0-0.2) X10*3/uL Abs Immat Gran (auto) 0.05 H (0.00-0.03) X10*3/uL Absolute Neuts (auto) 7.5 (2.0-8.3) x10*3/uL Absolute Nucleated RBC 0.000 (0.0-0.012) X10*3/uL Nucleated RBC % (auto) 0.0 (0.0-0.2) /100WBC Sodium 138 (135-145) mmol/L Potassium 3.8 (3.3-5.1) mmol/L Chloride 105 (96-108) mmol/L Carbon Dioxide 25 (22-29) mmol/L Anion Gap 12 (12-20) BUN 19 H (9-16) mg/dL Creatinine 0.96 (0.5-1.4) mg/dL Estim Creat Clear Calc 95.9 Estimated GFR > 60 Random Glucose 105 (60-115) mg/dL Lactic Acid 1.0 (0.5-2.0) mmol/L Calcium 9.8 (8.4-10.2) mg/dL Total Bilirubin 0.6 (0.0-1.0) mg/dL Direct Bilirubin 0.2 (0.0-0.5) mg/dL AST 23 (5-37) U/L ALT 74 H (0-40) U/L Alkaline Phosphatase 146 H (39-117) U/L Total Protein 7.7 (6.5-8.0) g/dL Albumin 4.2 (3.5-5.0) g/dL Ethyl Alcohol < 10 mg/dL Discharge Plan Discharge Clinical Impression: Cellulitis Patient Disposition: Home, Self-Care Instructions: Cellulitis (ED) Additional Instructions: Please keep wounds clean and dry. Take prescribed medication as directed. Finish the entire course even if your feeling better. Apply warm compresses to the areas 5-6 times per day. Watch for increased redness, swelling, if any of these occur, please return for re-evaluation. If any new or worsening symptoms occur, please return for re-evaluation. Prescriptions: New cephalexin 250 mg capsule 250 mg PO Q6H 7 Days Qty: 28 0RF doxycycline hyclate 100 mg capsule 100 mg PO BID 7 Days Qty: 14 0RF gabapentin 300 mg capsule 300 mg PO BID 30 Days Qty: 60 0RF hydroxyzine HCl 50 mg tablet 50 mg PO TID PRN (Reason: itching, anxiety) 30 Days Qty: 90 0RF No Action albuterol sulfate [Ventolin HFA] 90 mcg/actuation Hfa Aerosol Inhaler 2 puff inhalation Q4H PRN (Reason: wheeze) Qty: 1 0RF ferrous sulfate 324 mg (65 mg iron) Tablet,Delayed Release (Dr/Ec) 324 mg PO DAILY Qty: 30 0RF metoprolol succinate 25 mg Tablet Extended Release 24 Hr 25 mg PO DAILY Qty: 14 1RF Protocol: Hold for SBP/HR < HOLD for SBP < : 90 HOLD for HR < : 60 cyanocobalamin (vitamin B-12) 500 mcg Tablet 500 mcg PO DAILY Qty: 30 0RF folic acid 1 mg Tablet 1 mg PO DAILY Qty: 30 0RF multivitamin [Daily-Jamin] Tablet 1 tab PO DAILY Qty: 30 0RF thiamine mononitrate (vit B1) 100 mg Tablet 100 mg PO DAILY Qty: 30 0RF pantoprazole 40 mg tablet,delayed release (DR/EC) 1 tab PO DAILY Qty: 30 0RF bupropion HCl 75 mg tablet 75 mg PO BID Qty: 28 1RF benztropine 1 mg tablet 1 mg PO BID PRN (Reason: Extrapyramidal Effects/Symptoms) Qty: 28 1RF nicotine 21 mg/24 hr patch 24 hour 1 patch topical DAILY Qty: 30 0RF prazosin 2 mg capsule 2 mg PO BEDTIME Qty: 14 1RF nicotine (polacrilex) 4 mg lozenge 4 mg PO QID PRN (Reason: Nicotine Cravings) Qty: 72 0RF hydroxyzine HCl 50 mg tablet 50 mg PO TID PRN (Reason: itching, anxiety) 30 Days Qty: 90 0RF gabapentin 300 mg capsule 300 mg PO BID 30 Days Qty: 60 0RF amlodipine 5 mg tablet 5 mg PO DAILY 30 Days Qty: 30 0RF levothyroxine 25 mcg capsule 25 mcg PO DAILY 30 Days Qty: 30 0RF atorvastatin 10 mg tablet 10 mg PO BEDTIME 30 Days Qty: 30 0RF metoprolol succinate 25 mg tablet extended release 24 hr 25 mg PO DAILY 30 Days Qty: 30 0RF prednisone 20 mg tablet 60 mg PO DAILY 7 Days Qty: 21 0RF triamcinolone acetonide 0.5 % ointment 1 appl topical BID Qty: 30 0RF nicotine 21 mg/24 hr Patch 24 Hour 21 mg transdermal DAILY Qty: 30 0RF nicotine (polacrilex) 2 mg Gum 4 mg buccal Q2H PRN (Reason: Nicotine Cravings) Qty: 50 0RF atorvastatin 10 mg Tablet 10 mg PO BEDTIME Qty: 7 0RF amlodipine 5 mg Tablet 5 mg PO DAILY Qty: 7 0RF Protocol: Hold for SBP< HOLD for SBP < : 90 clonidine HCl 0.2 mg Tablet 0.2 mg PO TID Qty: 21 0RF Protocol: Hold for SBP< HOLD for SBP < : 90 lidocaine [Lidocaine Pain Relief] 4 % Adhesive Patch,Medicated 1 patch transdermal DAILY Qty: 10 0RF melatonin 3 mg Tablet 9 mg PO DAILY PRN (Reason: Insomnia) Qty: 21 0RF mirtazapine 30 mg Tablet 30 mg PO BEDTIME Qty: 7 0RF gabapentin 100 mg Capsule 100 mg PO TID Qty: 21 0RF chlorpromazine 200 mg tablet 200 mg PO BEDTIME Qty: 7 4RF naloxone [Narcan] 4 mg/actuation spray,non-aerosol 4 mg intranasal Q2M PRN (Reason: opioid overdose) Qty: 2 0RF Rx Instructions: spray 1 dose into ONE nostril; alternate nostrils w each dose until help arrives Interventions: ED Discharge Assessment Last Done: 07/21/23 16:14 Discharge Date/Time: 07/21/23 16:15
[2023-07-21 13:49] LABS: MANUAL DIFF FLAG NO
[2023-07-21 13:53] LABS: Ethanol < 10 mg/dL
[2023-07-21 13:54] LABS: Basophils Absolute Auto 0.1 X10*3/uL (0.0-0.2); Basophils Percent Auto 0.6 % (0-2); Eosinophils Absolute Auto 0.2 X10*3/uL (0.0-0.4); Eosinophils Percent Auto 2.3 % (0-4); Hematocrit 40.6 % (42.0-52.0); Hemoglobin 13.4 g/dl (14.0-18.0); Imm Gran Abs Auto 0.05 X10*3/uL (0.00-0.03); Imm Gran Pct Auto 0.5 % (0.0-0.4); Lymphocytes Absolute Auto 1.5 X10*3/uL (1.2-4.9); Lymphocytes Percent Auto 14.4 % (20-40); Mean Corpuscular Hemoglobin 29.8 pg (27.0-33.0); Mean Corpuscular Volume 90.4 fL (80.0-98.0); Mean Platelet Volume 9.6 fL (9.4-12.4); Monocytes Absolute Auto 0.8 X10*3/uL (0.1-1.2); Monocytes Percent Auto 7.9 % (2-11); Neutrophils Absolute Auto 7.5 x10*3/uL (2.0-8.3); Neutrophils Percent Auto 74.3 % (45-73); Platelet Count 195 X10*3/uL (160-400); Red Blood Count 4.49 X10*6/uL (4.60-5.80); Red Cell Distribution Width 13.4 % (11.0-16.0); White Blood Count 10.1 X10*3/uL (4.8-10.8)
[2023-07-21 13:55] LABS: Alanine Aminotransferase 74 U/L (0-40); Albumin Level 4.2 g/dL (3.5-5.0); Alkaline Phosphatase 146 U/L (39-117); Anion Gap 12 (12-20); Aspartate Amino Transferase 23 U/L (5-37); Bilirubin Direct 0.2 mg/dL (0.0-0.5); Bilirubin Total 0.6 mg/dL (0.0-1.0); Blood Urea Nitrogen 19 mg/dL (9-16); Calcium 9.8 mg/dL (8.4-10.2); Carbon Dioxide 25 mmol/L (22-29); Chloride 105 mmol/L (96-108); Creatinine Clr Calc Pharmacy 95.9; Estimated Glomerular Filt Rate > 60; Glucose Random 105 mg/dL (60-115); Potassium 3.8 mmol/L (3.3-5.1); Sodium 138 mmol/L (135-145); Total Protein 7.7 g/dL (6.5-8.0)
[2023-07-21] MEDS: HYDROcodone Bit/Acetam 5/325 TABLET 1 TAB PO (14:10)
[2023-07-21] MEDS: cephALEXin 250 MG CAPSULE PO (14:47)
[2023-07-21] MEDS: Doxycycline Monohydrate 100 MG CAPSULE PO (14:47)
[2023-07-21 16:12] VITALS: BP 135/87; PULSE 94; RESP 18; O2SAT 95
== END 2023-07-21 16:15 | disposition home or self-care (01) ==
PROVIDERS: Physician Assistant Medical; Emergency Provider Student in an Organized Health Care Education/Training Program
DX: L03.114 Cellulitis of left upper limb (principal); L03.113 Cellulitis of right upper limb; F19.10 Other psychoactive substance abuse, uncomplicated; I10 Essential (primary) hypertension; F17.210 Nicotine dependence, cigarettes, uncomplicated; F11.20 Opioid dependence, uncomplicated
CPT/HCPCS: 36415; 80048; 80076; 80307; 83605; 85025; 87040; 99284

== ENCOUNTER 2023-08-28 16:11 | Outpatient (AMB) | payer OTHER, MEDICAID, SELFPAY ==
[2023-08-28 16:12] VITALS: BP 126/88; PULSE 85; O2SAT 99; BMI 23.5
--- NOTE | 2023-08-28 16:12 | MHC.PC.OV ---
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: No Accompanied by: Self / Same As Patient Allergies aspirin [ASA] Allergy (Unknown, Verified 08/28/23 16:43) FACIAL SWELLING Penicillins [PENICILLINS] Allergy (Unknown, Verified 08/28/23 16:43) HIVES trazodone Allergy (Verified 08/28/23 16:43) Anaphylaxis tramadol [TRAMADOL] Adverse Reaction (Unknown, Verified 08/28/23 16:43) NAUSEA & VOMITING Medication List - Last Reconciled 08/28/23 by Sergey Archer MD albuterol sulfate 90 mcg/actuation (Ventolin HFA) 2 puffs inhalation Q4H PRN amlodipine 5 mg PO DAILY 30 days atorvastatin 10 mg PO BEDTIME 30 days bupropion HCl 75 mg PO BID buspirone mg PO TID clonidine HCl 0.2 mg See Protocol PO BID cyanocobalamin (vitamin B-12) 500 mcg PO DAILY ferrous sulfate 324 mg PO DAILY folic acid 1 mg PO DAILY gabapentin 300 mg PO BID 30 days gabapentin 100 mg PO TID hydroxyzine HCl 50 mg PO TID PRN 30 days levothyroxine 25 mcg PO DAILY 30 days lidocaine 4% (Lidocaine Pain Relief) 1 patch transdermal DAILY melatonin 5 mg PO BEDTIME metoprolol succinate ER 25 mg PO DAILY 30 days multivitamin (Daily-Jamin tablet) 1 tab PO DAILY naloxone 4 mg/actuation (Narcan) 4 mg intranasal Q2M PRN nicotine (polacrilex) 4 mg buccal Q2H PRN pantoprazole 1 tab PO DAILY thiamine mononitrate (vit B1) 100 mg PO DAILY triamcinolone acetonide 0.5% 1 appl topical BID Tobacco use date assessed: 08/28/23 Dental Screening Dental Screen Date: 08/28/23 Did you have a dental visit in the last 12 months?: No Did you have a dental problem in the last 6 months where you did not have access to dental care?: No Was dental information given to patient?: Patient has dentist 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 Ga Adkins in [place] Patient was admitted to [facility] a couple of times this past summer for exacerbation of his alcohol and polysubstance abuse He was also seen at the ER last month for cellulitis of both arms - symptoms have since cleared up with antibiotics therapy States that he currently feels okay and would like to get a couple of his Rx refilled, including his Hydroxyzine He denies any headaches or dizziness Denies any chest pains, no shortness of breath No nausea/vomiting, no abdominal pain No change in bowel habits noted States that he continues to follow-up with Psychiatry regularly and feels that he is doing well on his current medications [facility] Medical History (Updated 08/30/23 @ 12:14 by Sergey Archer MD) Smoker Mixed hyperlipidemia Acquired hypothyroidism Essential hypertension Alcohol use disorder, severe, dependence Polysubstance use disorder Schizoaffective disorder Opiate dependence Colitis Chronic diarrhea Heavy tobacco smoker GERD (gastroesophageal reflux disease) History of colitis Surgical History (Updated 08/30/23 @ 12:20 by Sergye Archer MD) No pertinent past surgical history Family History Mother Alzheimer disease Multiple sclerosis Social History Household Members: None Housing: Other Housing Other:: hotel Do you presently have visiting nurse or other home services: No Alcohol intake: never Comment: 1:1 sitter Patient Tobacco Use Status: Current everyday Tobacco user Tobacco use type: Cigarette Cigarette Packs Per Day: 1 Cigarettes Per Day: 20.0 Years Smoked: 30 e-Cigarette/Vaping Use: Never Used Second Hand Smoke Exposure: No Substance Use Type: Marijuana service: No Sexual orientation: Straight/Heterosexual Cognitive needs: No Hearing needs: No Vision needs: No Questionnaire PHQ-9 Over the last 2 weeks, how often have you been bothered by any of the following problems? 1. Little interest or pleasure in doing things: not at all 2. Feeling down, depressed, or hopeless: several days 3. Trouble falling or staying asleep, or sleeping too much: nearly every day 4. Feeling tired or having little energy: not at all 5. Poor appetite or overeating: not at all 6. Feeling bad about yourself - or that you are a failure or have let yourself or your family down: not at all 7. Trouble concentrating on things, such as reading the newspaper or watching television: not at all 8. Moving or speaking so slowly that other people could have noticed. Or the opposite - being so fidgety or restless that you have been moving around a lot more than usual: not at all 9. Thoughts that you would be better off or of hurting yourself in some way: not at all Total score: 4 Depression Screening Interpretation: Positive Depression Screening Follow-up: Existing condition and In treatment Depression Screening Done: Yes 98191 - PHQ-9 Billing: Yes Source: Developed by Drs. Joe Wright, Vandana Etienne, Chemo Brar and colleagues, with an educational frankie from [employer]. Thrive Questionnaire Date Thrive assessed: 08/28/23 I am a: Patient What is your living situation today?: I have a steady place to live Within the past 12 months, did the food you bought not last and you didn't have the money to get more?: Never true Within the past 12 months, did you worry whether your food would run out before you got money to buy more?: Never true Do you have trouble paying for medicines?: No Do you have trouble getting transportation to medical appointments?: No Do you have trouble paying your heating and electricity bill?: No Do you have trouble taking care of your child, family member or friend?: No Do you have trouble with day-to-day activities such as bathing, preparing meals, shopping, managing finances, etc.?: No Are you currently unemployed and looking for a job?: No Are you interested in more education?: No Please select the resources that you would like help with: None Currently or been in a relationship where the following occur: no concerns reported AUDIT C Alcohol Use Questionnaire (AUDIT-C) 1. How often do you have a drink containing alcohol?: Never 3. How often do you have six or more drinks on one occasion?: Never Total Score: 0 Score Reviewed/Action Taken: Yes ROSANNA-7 AMB Questionnaire ROSANNA-7 Date ROSANNA - 7 assessed: 08/28/23 Feeling nervous, anxious, or on edge: 3 = Nearly every day Not being able to stop or control worryin = Nearly every day Worrying too much about different things: 3 = Nearly every day Trouble relaxin = Nearly every day Being so restless that it is hard to sit still: 0 = Not at all Becoming easily annoyed or irritable: 0 = Not at all Feeling afraid as if something awful might happen: 1 = Several days Total ROSANNA-7 score (0-4 normal; 5-9 mild; 10-14 moderate; 15-21 severe): 13 Source: Developed by Drs. Joe Wright, Vandana Etienne, Chemo Brar and colleagues, with an educational frankie from [employer]. Review of Systems Const Denies chills, Denies fatigue, Denies fever(s) and Denies headache(s) ENT Denies dysphagia, Denies dizziness, Denies otalgia, Denies headache(s), Denies neck pain, Denies odynophagia and Denies sore throat Card Denies chest pain, Denies palpitations and Denies dyspnea Resp Denies cough and Denies dyspnea GI Denies abdominal pain, Denies constipation, Denies dysphagia, Denies heartburn, Denies diarrhea, Denies nausea, Denies odynophagia and Denies vomiting Denies dysuria and Denies nocturia Musc Denies neck pain Skin/Breast Denies rash Neuro Denies dizziness and Denies headache(s) Psych Reports anxiety and Reports depression Endo Denies fatigue and Denies palpitations Physical exam (Primary Care) Vital Signs: Last Vital Signs Pulse 85 08/28/23 16:12 BP 126/88 08/28/23 16:12 Pulse Ox 99 08/28/23 16:12 Oxygen Delivery Method Room Air 08/28/23 16:12 BMI result Body Mass Index 23.5 Tobacco/Smoking Status: Tobacco use Status Tobacco use date assessed 08/28/23 08/28/23 16:16 Patient Tobacco Use Status Current everyday Tobacco 08/28/23 16:16 Tobacco use type Cigarette 08/28/23 16:16 e-Cigarette/Vaping Use Never Used 08/28/23 16:16 PHQ-9: PHQ-9 Score PHQ-9: Total score 4 08/30/23 09:51 Depression Screening Interpretation: Positive Depression Screening Follow-up: Existing condition and In treatment Thrive Assessment: Date of Thrive Assessment Date Thrive assessed 08/28/23 08/28/23 16:16 Currently or been in a relationship where the following occur: no concerns reported Const General: no acute distress and alert HENMT Ears: TM's normal bilaterally and EAC's normal Throat: Yes posterior oropharynx normal and Yes tonsils normal (no TP congestion) Neck Neck: Yes no lymphadenopathy and Yes supple Resp Auscultation: clear to auscultation bilaterally, no rales and no wheezes Cardio Rate: regular rate Rhythm: regular rhythm Heart sounds: no murmurs GI Palpation (GI): Soft to palpation, nontender and No hepatosplenomegaly present Skin General skin exam: no rashes or lesions noted Extrem General: Yes no clubbing, cyanosis or edema Results Reviewed Results Reviewed: Laboratory Tests 04/29/23 07/21/23 07/21/23 07:47 13:28 13:44 WBC 10.1 Hgb 13.4 L Hct 40.6 L Plt Count 195 D Sodium 138 Potassium 3.8 Creatinine 0.96 Estimated GFR > 60 Random Glucose 105 Calcium 9.8 Total Bilirubin 0.6 AST 23 ALT 74 H Triglycerides 390 Cholesterol 310 LDL Cholesterol, Calc 182 HDL Cholesterol 50 Assessment and Plan Assessment & Plan (1) Essential hypertension: Code(s): I10 - Essential (primary) hypertension Plan: Reinforced low sodium diet - goal is systolic BP of 120 mm or less Continue Amlodipine 5 mg QD and Metoprolol ER 25 mg QD Is also on Clonidine 0.2 mg BID - this helps with his BP as well as with his withdrawal symptoms and anxiety (2) Mixed hyperlipidemia: Code(s): E78.2 - Mixed hyperlipidemia Plan: Reinforced low cholesterol diet Advised that his serum triglyceride level has improved on his recent labs although his LDL cholesterol is significantly elevated at 182 mg/dl Recommend increasing his Atorvastatin to 20 mg QD - patient is agreeable to this - new Rx sent Will have him recheck his labs and fasting lipids in 3 months for follow up (3) Acquired hypothyroidism: Code(s): E03.9 - Hypothyroidism, unspecified Plan: Continue Levothyroxine 25 mcg QD Will recheck his TFTs in 3 months for follow up (4) GERD (gastroesophageal reflux disease): Code(s): K21.9 - Gastro-esophageal reflux disease without esophagitis Qualifiers: Esophagitis presence: without esophagitis Qualified Code(s): K21.9 - Gastro-esophageal reflux disease without esophagitis Plan: Dietary restrictions reinforced Continue Pantoprazole 40 mg QD (5) Anemia: Code(s): D64.9 - Anemia, unspecified Qualifiers: Anemia type: unspecified type Qualified Code(s): D64.9 - Anemia, unspecified Plan: Continue Ferrous Sulfate 324 mg QD Will continue to monitor his CBC regularly (6) Chronic alcohol abuse: Code(s): F10.10 - Alcohol abuse, uncomplicated Plan: S/P detox a couple of months ago and was advised close follow up with psychiatry on an outpatient basis Continue Thiamine 100 mg QD, Folic Acid 1 mg QD and B12 500 mcg QD (7) Polysubstance use disorder: Code(s): F19.90 - Other psychoactive substance use, unspecified, uncomplicated Plan: Per discharged summaries from his recent admissions, he has declined treatments for these His homelessness and mood disorder appear to be exacerbating his situation Recommend referral to addiction medicine, which he declined - is advised that he can call for referral at any time if he decides he wants to have this addressed further (8) Anxiety: Code(s): F41.9 - Anxiety disorder, unspecified Plan: Continue Hydroxyzine 50 mg TID PRN and Buspirone 15 mg TID Also takes Melatonin 5 mg Q HS to help him sleep at night Follow up with psychiatry as scheduled (9) Schizoaffective disorder: Code(s): F25.9 - Schizoaffective disorder, unspecified Qualifiers: Schizoaffective disorder type: unspecified Qualified Code(s): F25.9 - Schizoaffective disorder, unspecified Plan: Continue Bupropion 75 mg BID and Gabapentin 100 mg TID Follow up with psychiatry as scheduled (10) Smoker: Code(s): F17.200 - Nicotine dependence, unspecified, uncomplicated Plan: Counseled on smoking cessation Plan Follow up in 3 months Orders: Orders Complete Blood Count Auto Diff 3 Months I10 - Essential (primary) hypertension Lipid Panel 3 Months E78.00 - Pure hypercholesterolemia, unspecified Free T4 (Free Thyroxine) 11/26/24 E03.9 - Hypothyroidism, unspecified Comprehensive [place]. Panel Fast 3 Months E78.00 - Pure hypercholesterolemia, unspecified UA CC w/rflx Micro + Cult 3 Months R30.0 - Dysuria Vitamin D 25-OH Total 3 Months E55.9 - Vitamin D deficiency, unspecified Thyroid Stimulating Hormone 11/27/23 E03.9 - Hypothyroidism, unspecified Medications: Changed From atorvastatin 10 mg PO BEDTIME 30 days 30 tabs 0RF To atorvastatin 20 mg PO BEDTIME 30 days 30 tabs 3RF From albuterol sulfate 90 mcg/actuation (Ventolin HFA) 2 puffs inhalation Q4H PRN 1 inhaler 0RF wheeze To albuterol sulfate 90 mcg/actuation 2 puffs inhalation Q6H PRN 8.5 grams 1RF shortness of breath or wheezing Refilled hydroxyzine HCl 50 mg PO TID 30 days PRN 90 tabs 1RF itching, anxiety gabapentin 100 mg PO TID 21 caps 0RF Coding Level of Care Code New Pt Level 4 (32885) Diagnoses Essential hypertension I10 Mixed hyperlipidemia E78.2 Acquired hypothyroidism E03.9 Gastroesophageal reflux disease without esophagitis K21.9 Esophagitis presence: without esophagitis Anemia, unspecified type D64.9 Anemia type: unspecified type Chronic alcohol abuse F10.10 Polysubstance use disorder F19.90 Anxiety F41.9 Schizoaffective disorder, unspecified type F25.9 Schizoaffective disorder type: unspecified Smoker F17.200
== END 2023-08-28 16:56 | disposition home or self-care (01) ==
PROVIDERS: Visit Provider Internal Medicine
DX: I10 Essential (primary) hypertension (principal); E78.2 Mixed hyperlipidemia; F25.9 Schizoaffective disorder, unspecified; E03.9 Hypothyroidism, unspecified; K21.9 Gastro-esophageal reflux disease without esophagitis; D64.9 Anemia, unspecified; F10.10 Alcohol abuse, uncomplicated; F19.90 Other psychoactive substance use, unspecified, uncomplicated; F41.9 Anxiety disorder, unspecified; F17.210 Nicotine dependence, cigarettes, uncomplicated
CPT/HCPCS: 99204

== ENCOUNTER 2023-10-21 10:50 | Emergency (ER) | payer MEDICARE, MEDICAID, SELFPAY ==
--- NOTE | ~2023-10-21 | XR_ITS ---
EXAMINATION: XR LUMBAR SPINE XR SACRUM/COCCYX CLINICAL INFORMATION: Back pain. COMPARISON: CT abdomen/pelvis dated 05/29/2022. TECHNIQUE: AP, lateral, and coned-down views of the lumbar spine. AP and lateral views of the sacrum and coccyx. FINDINGS: LUMBAR SPINE: Normal vertebral body alignment. The lumbar lordosis is maintained. No acute fracture or subluxation. No loss of vertebral body height. Mild multilevel loss of vertebral disc height with endplate osteophytes, slightly progressed. Lower lumbar spine facet arthropathy. No concerning lytic or blastic osseous lesion. Atherosclerotic calcifications. SACRUM/COCCYX: No acute fracture or dislocation. No concerning lytic or blastic osseous lesion. Atherosclerotic calcifications. No sacroiliac joint space narrowing or marginal osteophytes. XR/XR sacrum coccyx min 2V IMPRESSION: Lumbar Spine: Multilevel degenerative disc disease and lower lumbar spine facet arthropathy, slightly progressed. Sacrum/Coccyx: Unremarkable examination.
--- NOTE | ~2023-10-21 | XR_ITS ---
EXAMINATION: XR LUMBAR SPINE XR SACRUM/COCCYX CLINICAL INFORMATION: Back pain. COMPARISON: CT abdomen/pelvis dated 05/29/2022. TECHNIQUE: AP, lateral, and coned-down views of the lumbar spine. AP and lateral views of the sacrum and coccyx. FINDINGS: LUMBAR SPINE: Normal vertebral body alignment. The lumbar lordosis is maintained. No acute fracture or subluxation. No loss of vertebral body height. Mild multilevel loss of vertebral disc height with endplate osteophytes, slightly progressed. Lower lumbar spine facet arthropathy. No concerning lytic or blastic osseous lesion. Atherosclerotic calcifications. SACRUM/COCCYX: No acute fracture or dislocation. No concerning lytic or blastic osseous lesion. Atherosclerotic calcifications. No sacroiliac joint space narrowing or marginal osteophytes. XR/XR lumbar spine 2-3V IMPRESSION: Lumbar Spine: Multilevel degenerative disc disease and lower lumbar spine facet arthropathy, slightly progressed. Sacrum/Coccyx: Unremarkable examination.
[2023-10-21 11:29] VITALS: BP 105/57; BP 124/82; PULSE 89; PULSE 99; RESP 16; TEMP 36.9; O2SAT 95; O2SAT 96; BMI 24.0
[2023-10-21 14:24] VITALS: BP 115/70; PULSE 78; RESP 14; O2SAT 98
[2023-10-21 17:33] VITALS: BP 132/82; PULSE 74; RESP 18; TEMP 36.6
--- NOTE | 2023-10-21 19:49 | PC.NURSE ---
This RN took over pt care @ 1900. Pt resting quietly in bed. Plan of care ongoing.
[2023-10-21] MEDS: oxyCODONE HCl Immed Release 5 MG TABLET PO (20:08)
[2023-10-21] MEDS: Cyclobenzaprine HCl 10 MG TABLET PO (20:09)
[2023-10-21] MEDS: predniSONE 20 MG TABLET 60 MG PO (20:09)
--- NOTE | 2023-10-21 20:12 | PC.NURSE ---
Pt in bed on his cell phone. No signs of distress. Pt medicated per nov. Plan of care ongoing.
[2023-10-21 22:59] VITALS: BP 139/88; PULSE 68; RESP 14; TEMP 36.8; O2SAT 93
--- NOTE | 2023-10-22 00:03 | ED_ITS ---
HPI - General Adult General Chief complaint: Back Pain/Injury Stated complaint: BACK PAIN,UNABLE TO AMB PER EMS Time Seen by Provider: 10/21/23 18:12 Source: patient Mode of arrival: ambulatory Limitations: no limitations History of Present Illness HPI narrative: 58-year-old male history of chronic back pain and also known bilateral lower extremities presents to ED for right lower back pain radiating down both legs. Patient denies any urinary/bowel incontinence. Patient patient denies any weakness of lower extremities. Patient denies any fever, chills, or any recent trauma. Patient denies any abdominal pain, nausea, vomiting, flank pain, fever, chills, or any genitourinary symptoms Related Data Home Medications Medication Instructions Recorded Confirmed melatonin 5 mg capsule 5 mg PO BEDTIME 08/28/23 08/28/23 Previous Rx's Medication Instructions Recorded bupropion HCl 75 mg tablet 75 mg PO BID #28 tabs 04/21/23 cyanocobalamin (vitamin B-12) 500 500 mcg PO DAILY #30 tabs 04/21/23 mcg tablet ferrous sulfate 324 mg (65 mg 324 mg PO DAILY #30 tabs 04/21/23 iron) tablet,delayed release folic acid 1 mg tablet 1 mg PO DAILY #30 tabs 04/21/23 multivitamin (Daily-Jamin tablet) 1 tab PO DAILY #30 tabs 04/21/23 thiamine mononitrate (vit B1) 100 100 mg PO DAILY #30 tabs 04/21/23 mg tablet lidocaine 4 % topical patch 1 patch transdermal DAILY #10 ea 05/11/23 (Lidocaine Pain Relief) naloxone 4 mg/actuation nasal 4 mg intranasal Q2M PRN opioid 05/11/23 spray (Narcan) overdose #2 ea nicotine (polacrilex) 2 mg gum 4 mg buccal Q2H PRN Nicotine 05/11/23 Cravings #50 ea triamcinolone acetonide 0.5 % 1 appl topical BID Apply to dry 07/07/23 topical ointment skin on hands and arms #30 grams albuterol sulfate 90 mcg/actuation 2 puff inhalation Q6H PRN 08/30/23 aerosol inhaler shortness of breath or wheezing #8.5 grams atorvastatin 20 mg tablet 20 mg PO BEDTIME 30 days #30 tabs 08/30/23 hydroxyzine HCl 50 mg tablet 50 mg PO TID PRN itching, anxiety 08/30/23 30 days #90 tabs amlodipine 5 mg tablet 5 mg PO DAILY 30 days #30 tabs 08/31/23 levothyroxine 25 mcg capsule 25 mcg PO DAILY 30 days #30 caps 08/31/23 metoprolol succinate 25 mg 25 mg PO DAILY 30 days #30 tabs 08/31/23 tablet,extended release 24 hr gabapentin 100 mg capsule 100 mg PO TID #21 caps 09/09/23 gabapentin 400 mg capsule 400 mg PO TID 30 days #90 caps 09/30/23 buspirone 15 mg tablet 15 mg PO TID 30 days #90 tabs 10/16/23 chlorpromazine 200 mg tablet 200 mg PO QPM 30 days #30 tabs 10/16/23 clonidine HCl 0.2 mg tablet 0.2 mg PO BID 30 days #60 tabs 10/16/23 pantoprazole 40 mg tablet,delayed 80 mg (2 x 40 mg) PO DAILY 30 days 10/16/23 release #60 tabs sertraline 100 mg tablet 100 mg PO DAILY 30 days #30 tabs 10/16/23 acetaminophen 325 mg capsule 325 mg PO QID PRN pain 7 days #28 10/22/23 caps prednisone 20 mg tablet 40 mg (2 x 20 mg) PO DAILY 5 days 10/22/23 #10 tabs Allergies Allergy/AdvReac Type Severity Reaction Status Date / Time aspirin [ASA] Allergy Unknown FACIAL Verified 08/28/23 16:43 SWELLING Penicillins [PENICILLINS] Allergy Unknown HIVES Verified 08/28/23 16:43 trazodone Allergy Anaphylaxis Verified 08/28/23 16:43 tramadol [TRAMADOL] AdvReac Unknown NAUSEA & Verified 08/28/23 16:43 VOMITING Review of Systems 2 Review of Systems: Back pain radiating down legs. Yes all other systems are reviewed and are negative [facility] Past Medical History Medical History (Updated 10/22/23 @ 00:06 by HOLLI Stevens) Smoker Mixed hyperlipidemia Acquired hypothyroidism Essential hypertension Alcohol use disorder, severe, dependence Polysubstance use disorder Schizoaffective disorder Opiate dependence Colitis Chronic diarrhea Heavy tobacco smoker GERD (gastroesophageal reflux disease) History of colitis Surgical History (Updated 08/30/23 @ 12:20 by Sergey Archer MD) No pertinent past surgical history Family History Family History Mother Alzheimer disease Multiple sclerosis Social History Social History Household Members: None Housing: Other Housing Other:: hotel Do you presently have visiting nurse or other home services: No Alcohol intake: never Comment: 1:1 sitter Patient Tobacco Use Status: Current everyday Tobacco user Tobacco use type: Cigarette Cigarette Packs Per Day: 1 Cigarettes Per Day: 20.0 Years Smoked: 30 Smoked in Last 30 Days: Yes e-Cigarette/Vaping Use: Never Used Second Hand Smoke Exposure: No Use of substances other than those prescribed or required for medical reasons: No Substance Use Type: Marijuana Advance Directives: No service: No Sexual orientation: Straight/Heterosexual Cognitive needs: No Hearing needs: No Vision needs: No Physical Exam ED Vital Signs: Vital Signs - 24 hr 10/21/23 11:29 10/21/23 14:24 10/21/23 17:33 Temperature 98.5 F 97.8 F Pulse Rate 89 78 74 Respiratory Rate 16 14 18 Blood Pressure 105/57 L 115/70 132/82 Pulse Oximetry 95 98 Oxygen Delivery Method Room Air Room Air 10/21/23 22:59 Temperature 98.3 F Pulse Rate 68 Respiratory Rate 14 Blood Pressure 139/88 Pulse Oximetry 93 Oxygen Delivery Method Room Air BMI result Body Mass Index 24.0 Const General: cooperative, healthy appearing, comfortable, no acute distress, well developed and alert Orientation/consciousness: oriented to person, oriented to place, oriented to time and patient oriented x3 HENMT Head: Yes normal to inspection, Yes No palpable skull fracture present, Yes normocephalic and Yes atraumatic Eyes General: appearance normal, both eyes and all related structures Neck Neck: Yes normal visual inspection, Yes full ROM, Yes no lymphadenopathy, Yes no meningeal signs, Yes trachea midline, Yes supple, No anterior neck swelling and No tender Chest Chest palpation & inspection: normal inspection of the chest and normal palpation of entire chest wall Resp Effort & Inspection: normal respiratory effort and able to speak in complete sentences Auscultation: clear to auscultation bilaterally Cardio Jugular venous distension: no JVD Heart sounds: S1 normal heart sound present and S2 normal heart sound present GI Inspection: Yes normal to inspection Palpation (GI): Soft to palpation, not firm, nontender, no guarding and not rigid General: Yes no CVA tenderness Back/Spine/Pelvis Back: no CVA tenderness and No back tenderness Back/spine/pelvis image: 2 1. Positive for tenderness on palpation. Negative for crepitus, ecchymosis, deformity, rash. motor neurovascular exam of right lower extremity intact Skin General skin exam: no rashes or lesions noted, elasticity normal and turgor normal Neuro General: oriented to person, oriented to place, oriented to time, patient oriented x3, gait normal, tone normal, moves all extremities, Normal light touch and pain sensation, no meningeal signs, no focal motor deficits, CN's II-XI intact bilaterally and normal sensation to monofilament Extrem General: Yes normal to inspection and Yes full ROM Psych Appearance: grossly normal, well kempt and not disheveled Medications Administered Discontinued Medications Generic Name Dose Route Start Last Admin Trade Name Freq PRN Reason Stop Dose Admin Cyclobenzaprine HCl 10 mg 10/21/23 19:56 10/21/23 20:09 Cyclobenzaprine Hcl 10 Mg Tablet PO 10/21/23 19:57 10 mg ONCE ONE Administration Oxycodone HCl 5 mg 10/21/23 19:56 10/21/23 20:08 Oxycodone Hcl Immed Release 5 Mg Tablet PO 10/21/23 19:57 5 mg ONCE ONE Administration Prednisone 60 mg 10/21/23 19:56 10/21/23 20:09 Prednisone 20 Mg Tablet PO 10/21/23 19:57 60 mg ONCE ONE Administration Medical Decision Making Medical Decision Making MDM Narrative: 58-year-old middle presents ED for chronic back pain exacerbation without any trauma radiating down right leg. Patient states no urinary/bowel incontinence. Patient denies any recent trauma. Patient denies any IV drug use. Patient able to ambulate on his own after pain meds. Not suspecting any spinal epidural abscess or cauda equina. Not suspecting kidney stones Differential Diagnosis Differential Diagnoses: The differential diagnosis associated with the presentation includes (Lumbar radiculopathy, spinal fracture.) Admission/Observation Consideration of admission/observation: Escalation of care including admission/observation considered Independent Interpretation I performed an independent interpretation of an: Plain X-Ray Radiology Impression Discussion of test interpretation with radiology: I have reviewed the radiologist's reading. External Record Review External record reviewed: Other (Prior visits) Prescription Management I considered prescription management with: Pain Medication Discharge Plan Discharge Clinical Impression: Lumbar radiculopathy Patient Disposition: Home, Self-Care Instructions: Lumbar Radiculopathy (ED) Additional Instructions: Return to the ED immediately if you have urinary/bowel incontinence, paralysis weakness of lower extremities, dysuria, hematuria, abdominal pain, nausea, vomiting, fever, chills, testicular pain, or any other concerning symptoms. Please follow-up with primary care provider Prescriptions: New prednisone 20 mg tablet 40 mg PO DAILY 5 Days Qty: 10 0RF acetaminophen 325 mg capsule 325 mg PO QID PRN (Reason: pain) 7 Days Qty: 28 0RF No Action levothyroxine 25 mcg capsule 25 mcg PO DAILY 30 Days Qty: 30 3RF amlodipine 5 mg tablet 5 mg PO DAILY 30 Days Qty: 30 3RF metoprolol succinate 25 mg tablet extended release 24 hr 25 mg PO DAILY 30 Days Qty: 30 3RF gabapentin 100 mg capsule 100 mg PO TID Qty: 21 0RF gabapentin 400 mg capsule 400 mg PO TID 30 Days Qty: 90 0RF chlorpromazine 200 mg tablet 200 mg PO QPM 30 Days Qty: 30 1RF buspirone 15 mg tablet 15 mg PO TID 30 Days Qty: 90 1RF sertraline 100 mg tablet 100 mg PO DAILY 30 Days Qty: 30 1RF pantoprazole 40 mg tablet,delayed release (DR/EC) 80 mg PO DAILY 30 Days Qty: 60 1RF clonidine HCl 0.2 mg tablet 0.2 mg PO BID 30 Days Qty: 60 1RF ferrous sulfate 324 mg (65 mg iron) Tablet,Delayed Release (Dr/Ec) 324 mg PO DAILY Qty: 30 0RF cyanocobalamin (vitamin B-12) 500 mcg Tablet 500 mcg PO DAILY Qty: 30 0RF folic acid 1 mg Tablet 1 mg PO DAILY Qty: 30 0RF multivitamin [Daily-Jamin] Tablet 1 tab PO DAILY Qty: 30 0RF thiamine mononitrate (vit B1) 100 mg Tablet 100 mg PO DAILY Qty: 30 0RF bupropion HCl 75 mg tablet 75 mg PO BID Qty: 28 1RF triamcinolone acetonide 0.5 % ointment 1 appl topical BID Qty: 30 0RF nicotine (polacrilex) 2 mg Gum 4 mg buccal Q2H PRN (Reason: Nicotine Cravings) Qty: 50 0RF lidocaine [Lidocaine Pain Relief] 4 % Adhesive Patch,Medicated 1 patch transdermal DAILY Qty: 10 0RF naloxone [Narcan] 4 mg/actuation spray,non-aerosol 4 mg intranasal Q2M PRN (Reason: opioid overdose) Qty: 2 0RF Rx Instructions: spray 1 dose into ONE nostril; alternate nostrils w each dose until help arrives melatonin 5 mg capsule 5 mg PO BEDTIME atorvastatin 20 mg tablet 20 mg PO BEDTIME 30 Days Qty: 30 3RF hydroxyzine HCl 50 mg tablet 50 mg PO TID PRN (Reason: itching, anxiety) 30 Days Qty: 90 1RF albuterol sulfate 90 mcg/actuation HFA aerosol inhaler 2 puff inhalation Q6H PRN (Reason: shortness of breath or wheezing) Qty: 8.5 1RF Interventions: ED Discharge Assessment Last Done: 10/22/23 01:46 Discharge Date/Time: 10/22/23 01:49 Print Language: Tajik
--- NOTE | 2023-10-22 01:45 | PC.NURSE ---
Pt cursing at this RN regarding not getting an uber. Pt requested and spoke with wire charger Plan of care ongoing.
== END 2023-10-22 01:49 | disposition home or self-care (01) ==
PROVIDERS: Emergency Provider Emergency Medicine; PCP Internal Medicine
DX: M54.16 Radiculopathy, lumbar region (principal)
CPT/HCPCS: 72100; 72220; 99283; 99284

== ENCOUNTER 2023-11-18 15:46 | Outpatient (REF) | payer MEDICARE, SELFPAY ==
[2023-11-18 16:04] LABS: MANUAL DIFF FLAG NO
[2023-11-18 17:34] LABS: Basophils Absolute Auto 0.1 X10*3/uL (0.0-0.2); Basophils Percent Auto 0.9 % (0-2); Eosinophils Absolute Auto 0.3 X10*3/uL (0.0-0.4); Eosinophils Percent Auto 3.1 % (0-4); Hematocrit 45.7 % (42.0-52.0); Hemoglobin 15.7 g/dl (14.0-18.0); Imm Gran Abs Auto 0.03 X10*3/uL (0.00-0.03); Imm Gran Pct Auto 0.4 % (0.0-0.4); Lymphocytes Absolute Auto 2.2 X10*3/uL (1.2-4.9); Lymphocytes Percent Auto 27.8 % (20-40); Mean Corpuscular HGB Conc 34.4 g/dl (31.0-36.0); Mean Corpuscular Hemoglobin 29.8 pg (27.0-33.0); Mean Corpuscular Volume 86.7 fL (80.0-98.0); Mean Platelet Volume 9.7 fL (9.4-12.4); Monocytes Absolute Auto 0.7 X10*3/uL (0.1-1.2); Neutrophils Absolute Auto 4.8 x10*3/uL (2.0-8.3); Neutrophils Percent Auto 58.8 % (45-73); Platelet Count 269 X10*3/uL (160-400); Red Blood Count 5.27 X10*6/uL (4.60-5.80); Red Cell Distribution Width 11.9 % (11.0-16.0); White Blood Count 8.1 X10*3/uL (4.8-10.8)
[2023-11-18 17:57] LABS: Cholesterol 250 mg/dL (<200); HDL Cholesterol 37 mg/dL (>40); Triglycerides 540 mg/dL (<150)
[2023-11-18 18:14] LABS: Free T4 (Free Thyroxine) 0.92 ng/dL (0.71-1.85); Thyroid Stimulating Hormone 2.27 uIU/mL (0.32-4.0)
== END 2023-11-18 15:47 | disposition home or self-care (01) ==
LOC: HO.LAB 15:46
PROVIDERS: Visit Provider Internal Medicine
DX: I10 Essential (primary) hypertension (principal); E03.9 Hypothyroidism, unspecified; E78.00 Pure hypercholesterolemia, unspecified
CPT/HCPCS: 36415; 80061; 84439; 84443; 85025

== ENCOUNTER 2024-01-14 09:26 | Outpatient (AMB) | payer MEDICARE, SELFPAY ==
[2024-01-14 09:28] VITALS: BP 130/60; PULSE 76; TEMP 36.6; O2SAT 95; BMI 23.5
--- NOTE | 2024-01-14 09:28 | AM.OFFWIN_ITS ---
Intake Vital Signs 01/14/24 09:28 Height 6 ft 1 in Weight 178 lb BMI 23.5 BP 130/60 Blood Pressure Location Lt brachial Position Sitting Pulse 76 Pulse Source Pulse Oximeter Temp 97.9 F Temp Source Temporal Artery Scan Pulse Oximetry (%) 95 Oxygen Delivery Method Room Air Intake Visit Reasons: EP ?Infection on head Intake Note: pt is here today for infection on head started 3 days ago Patient Tobacco Use Status: Current everyday Tobacco user Allergies aspirin [ASA] Allergy (Unknown, Verified 01/14/24 10:00) FACIAL SWELLING Penicillins [PENICILLINS] Allergy (Unknown, Verified 01/14/24 10:00) HIVES trazodone Allergy (Verified 01/14/24 10:00) Anaphylaxis tramadol [TRAMADOL] Adverse Reaction (Unknown, Verified 01/14/24 10:00) NAUSEA & VOMITING Do you need a note to return to daycare/school/sports/work: No HPI HPI Comments History of Present Illness Details 58-year-old male presents today with a l esion the top of his head. The patient states it is very tender in describes tremendous amount of pressure. He states he has had multiple similar episodes in his head and arm that he stated were diagnosed as cellulitis. He denies any particular injury or trauma to the area. [facility] [place] Medical History (Updated 01/14/24 @ 12:03 by HOLLI Briones) Smoker Mixed hyperlipidemia Acquired hypothyroidism Essential hypertension Alcohol use disorder, severe, dependence Polysubstance use disorder Schizoaffective disorder Opiate dependence Colitis Chronic diarrhea Heavy tobacco smoker GERD (gastroesophageal reflux disease) History of colitis Surgical History (Updated 08/30/23 @ 12:20 by Sergey Archer MD) No pertinent past surgical history Family History Mother Alzheimer disease Multiple sclerosis Social History Household Members: None Housing: Other Housing Other:: hotel Do you presently have visiting nurse or other home services: No Alcohol intake: never Comment: 1:1 sitter Patient Tobacco Use Status: Current everyday Tobacco user Tobacco use type: Cigarette Cigarette Packs Per Day: 1 Cigarettes Per Day: 20.0 Years Smoked: 30 e-Cigarette/Vaping Use: Never Used Second Hand Smoke Exposure: No Substance Use Type: Marijuana service: No Sexual orientation: Straight/Heterosexual Cognitive needs: No Hearing needs: No Vision needs: No Review of Systems Const All systems reviewed & are unremarkable except as noted in HPI and below Physical Exam Vital Signs: Last Vital Signs Temp 97.9 F 01/14/24 09:28 Pulse 76 01/14/24 09:28 BP 130/60 01/14/24 09:28 Pulse Ox 95 01/14/24 09:28 Oxygen Delivery Method Room Air 01/14/24 09:28 BMI result Body Mass Index 23.5 HEENT Head: Yes scalp tenderness and Yes other (3 cm lesion present on the top of his head small area of purulent discharge) Ears: hearing grossly normal bilaterally General nose exam: Normal external nose present Face and sinus: Yes normal facial exam Results Reviewed Results Reviewed: In the I and D was performed in the office which revealed sebaceous cyst. Little or no discharge from the lesion. Assessment & Plan Assessment & Plan (1) Sebaceous cyst: Code(s): L72.3 - Sebaceous cyst Plan: The patient has an appointment with the primary care tomorrow and will ask for a general surgical consult to have the sebaceous cyst removed. Plan See plan Coding Level of Care Code Est Pt Level 3 (76085) Diagnoses Sebaceous cyst L72.3
== END 2024-01-14 11:00 | disposition home or self-care (01) ==
PROVIDERS: PCP Internal Medicine; Visit Provider Physician Assistant Medical
DX: L72.3 Sebaceous cyst (principal)
CPT/HCPCS: 99213

== ENCOUNTER 2024-01-15 13:41 | Outpatient (AMB) | payer MEDICARE, MEDICAID, SELFPAY ==
--- NOTE | 2024-01-15 13:42 | MHC.PC.OV ---
Vital Signs 01/15/24 13:45 Height 6 ft 1 in Weight 175 lb 8 oz BMI 23.2 BP 100/60 Blood Pressure Location Lt brachial Position Sitting Pulse 78 Pulse Source Pulse Oximeter Pulse Oximetry (%) 96 Oxygen Delivery Method Room Air Intake Visit Reasons: hyperlipidemia, htn, anxiety Intake Note: Patient is here to follow up on HLD, HTN, Anxiety. Fine Arts Chair Required: No Artillery Meteorological Man: Not Required per policy Accompanied by: Self / Same As Patient Allergies aspirin [ASA] Allergy (Unknown, Verified 01/15/24 14:03) FACIAL SWELLING Penicillins [PENICILLINS] Allergy (Unknown, Verified 01/15/24 14:03) HIVES trazodone Allergy (Verified 01/15/24 14:03) Anaphylaxis tramadol [TRAMADOL] Adverse Reaction (Unknown, Verified 01/15/24 14:03) NAUSEA & VOMITING Medication List - Last Reconciled 01/15/24 by Sergey Archer MD acetaminophen 325 mg PO QID PRN 7 days albuterol sulfate 90 mcg/actuation 2 puffs inhalation Q6H PRN amlodipine 5 mg PO DAILY 30 days atorvastatin 20 mg PO BEDTIME bupropion HCl 75 mg PO BID buspirone 15 mg PO TID 30 days chlorpromazine 200 mg PO QPM 30 days clonidine HCl 0.2 mg PO BID 30 days cyanocobalamin (vitamin B-12) 500 mcg PO DAILY ferrous sulfate 324 mg PO DAILY folic acid 1 mg PO DAILY gabapentin 600 mg PO TID hydroxyzine HCl 100 mg (2 x 50 mg) PO TID 30 days levothyroxine 25 mcg PO DAILY 30 days lidocaine 4% (Lidocaine Pain Relief) 1 patch transdermal DAILY melatonin 5 mg PO BEDTIME metoprolol succinate ER 25 mg PO DAILY 30 days multivitamin (Daily-Jamin tablet) 1 tab PO DAILY naloxone 4 mg/actuation (Narcan) 4 mg intranasal Q2M PRN pantoprazole 40 mg PO DAILY sertraline 100 mg PO DAILY 30 days thiamine mononitrate (vit B1) 100 mg PO DAILY Tobacco use date assessed: 01/15/24 Dental Screening Dental Screen Date: 01/15/24 Did you have a dental visit in the last 12 months?: No Did you have a dental problem in the last 6 months where you did not have access to dental care?: No Was dental information given to patient?: No HPI hyperlipidemia, htn, anxiety HPI Details Patient comes in today for his follow up visit States that he went to the walk-in clinic yesterday for a very painful and draining lesion on the top of his head that he's had for a few days now States that it started out as a small lesion and gradually got bigger and more painful over the next few days Relates that he's had similar recurrent lesions on his scalp and all over his body for the past few months and would like to know what he can do to help clear these up and keep them from recurring An I & D was apparently attempted at the walk-in clinic yesterday unsuccessfully and the lesion was bandaged and he was instructed to seek a surgical referral from his PCP at his appointment today He is wondering if the dressing on top of his head can be removed and changed and if he can take it off to get a shower sometime this weekend Would also like something stronger than a regular Tylenol for pain He continues to experience the frequent and recurrent burning sensation and pain in both of his feet - notes that the symptoms are worse when he is walking and at night He is scheduled to see neurology next month on 02/23/2024 for further evaluation and is wondering if there is anything that can be done to help cure his neuropathy States that he continues to experience increased anxiety despite his current Rx and is wondering if his Hydroxyzine dosage can be raised further He does not take his Clonidine 0.2 mg as he reports feeling very dizzy often when he takes it Also relates increasing hesitancy and decreased urine stream for the past several weeks now when he uses the bathroom He is currently still staying at the [facility] [place] and states that he is now 8 months sober Also has had an itchy rash on his right ankle area for a while now - thinks it may be eczema and is requesting for some Rx for this He denies any fever or increased headaches He denies any chest pains, no SOB No nausea/vomiting, no abdominal pain No change in bowel habits noted Needs a few of his Rx refilled [facility] Medical History Smoker Mixed hyperlipidemia Acquired hypothyroidism Essential hypertension Alcohol use disorder, severe, dependence Polysubstance use disorder Schizoaffective disorder Opiate dependence Colitis Chronic diarrhea Heavy tobacco smoker GERD (gastroesophageal reflux disease) History of colitis Surgical History No pertinent past surgical history Family History Mother Alzheimer disease Multiple sclerosis Other Mental health disorder Social History Household Members: None Housing: Other Housing Other:: hotel Do you presently have visiting nurse or other home services: No Alcohol intake: never Comment: 1:1 sitter Patient Tobacco Use Status: Current everyday Tobacco user Tobacco use type: Cigarette Cigarette Packs Per Day: 1 Cigarettes Per Day: 20.0 Years Smoked: 30 e-Cigarette/Vaping Use: Never Used Second Hand Smoke Exposure: Yes Substance Use Type: Marijuana service: No Current occupational status: disabled Sexual orientation: Straight/Heterosexual Cognitive needs: No Hearing needs: No Vision needs: No Questionnaire PHQ-9 Over the last 2 weeks, how often have you been bothered by any of the following problems? 1. Little interest or pleasure in doing things: more than half the days 2. Feeling down, depressed, or hopeless: more than half the days 3. Trouble falling or staying asleep, or sleeping too much: nearly every day 4. Feeling tired or having little energy: more than half the days 5. Poor appetite or overeating: more than half the days 6. Feeling bad about yourself - or that you are a failure or have let yourself or your family down: several days 7. Trouble concentrating on things, such as reading the newspaper or watching television: several days 8. Moving or speaking so slowly that other people could have noticed. Or the opposite - being so fidgety or restless that you have been moving around a lot more than usual: not at all 9. Thoughts that you would be better off or of hurting yourself in some way: not at all Total score: 13 Depression Screening Interpretation: Positive Depression Screening Follow-up: Existing condition and In treatment Depression Screening Done: Yes 32997 - PHQ-9 Billing: Yes Source: Developed by Drs. Joe Wright, Vandana Etienne, Chemo Brar and colleagues, with an educational frankie from [employer]. Thrive Questionnaire Date Thrive assessed: 01/15/24 I am a: Patient What is your living situation today?: I have a steady place to live Within the past 12 months, did the food you bought not last and you didn't have the money to get more?: Never true Within the past 12 months, did you worry whether your food would run out before you got money to buy more?: Never true Do you have trouble paying for medicines?: No Do you have trouble getting transportation to medical appointments?: No Do you have trouble paying your heating and electricity bill?: No Do you have trouble taking care of your child, family member or friend?: No Do you have trouble with day-to-day activities such as bathing, preparing meals, shopping, managing finances, etc.?: No Are you currently unemployed and looking for a job?: No Are you interested in more education?: No Currently or been in a relationship where the following occur: no concerns reported THRIVE Score: 0 AUDIT C Alcohol Use Questionnaire (AUDIT-C) 1. How often do you have a drink containing alcohol?: Never 3. How often do you have six or more drinks on one occasion?: Never Total Score: 0 Score Reviewed/Action Taken: Yes ROSANNA-7 AMB Questionnaire ROSANNA-7 Date ROSANNA - 7 assessed: 01/15/24 Feeling nervous, anxious, or on edge: 3 = Nearly every day Not being able to stop or control worryin = Nearly every day Worrying too much about different things: 3 = Nearly every day Trouble relaxin = Nearly every day Being so restless that it is hard to sit still: 3 = Nearly every day Becoming easily annoyed or irritable: 2 = More than half the days Feeling afraid as if something awful might happen: 3 = Nearly every day Total ROSANNA-7 score (0-4 normal; 5-9 mild; 10-14 moderate; 15-21 severe): 20 Source: Developed by Drs. Joe Wright, Vandana Etienne, Chemo Brar and colleagues, with an educational frankie from [employer]. Review of Systems Const Denies chills, Reports fatigue, Denies fever(s) and Denies headache(s) ENT Denies dysphagia, Denies dizziness, Denies otalgia, Denies headache(s), Denies neck pain, Denies odynophagia and Denies sore throat Card Denies chest pain, Denies palpitations and Denies dyspnea Resp Denies cough and Denies dyspnea GI Denies abdominal pain, Denies constipation, Denies dysphagia, Denies heartburn, Denies diarrhea, Denies nausea, Denies odynophagia and Denies vomiting Reports oliguria, Denies dysuria, Denies nocturia, Denies urinary frequency and Reports urinary hesitancy Musc Denies neck pain Skin/Breast Reports as per HPI, Reports lesions (on the scalp; also (+)large draining unroofed lesion on top of head) and Reports rash (recurrent scattered rash; itchy patch of scaling rash near R ankle) Neuro Details: (+) recurrent burning pain on both feet Reports as per HPI, Reports burning sensations, Denies dizziness, Denies headache(s) and Reports paresthesias Psych Reports anxiety (increased) and Reports depression Endo Reports fatigue and Denies palpitations Physical exam (Primary Care) Vital Signs: Last Vital Signs Pulse 78 01/15/24 13:45 BP 100/60 01/15/24 13:45 Pulse Ox 96 01/15/24 13:45 Oxygen Delivery Method Room Air 01/15/24 13:45 BMI result Body Mass Index 23.2 Tobacco/Smoking Status: Tobacco use Status Tobacco use date assessed 01/15/24 01/15/24 13:55 Patient Tobacco Use Status Current everyday Tobacco 01/15/24 13:55 Tobacco use type Cigarette 01/15/24 13:55 e-Cigarette/Vaping Use Never Used 01/15/24 13:55 PHQ-9: PHQ-9 Score PHQ-9: Total score 13 01/15/24 13:55 Depression Screening Interpretation: Positive Depression Screening Follow-up: Existing condition and In treatment Thrive Assessment: Date of Thrive Assessment Date Thrive assessed 01/15/24 01/15/24 13:55 Currently or been in a relationship where the following occur: no concerns reported Const General: no acute distress, alert and anxious HENMT Other: (+) large draining unroofed lesion on the top of the head at the parieto-occipital area - wound is covered with dressing but dressing was removed/replaced and lesion cleaned and reexamined; (+) scattered multiple papular lesions on the scalp, over the lateral neck areas and on the anterior chest wall and arms bilaterally Head: Yes scalp lesion Ears: TM's normal bilaterally and EAC's normal Throat: Yes posterior oropharynx normal and Yes tonsils normal (no TP congestion) Neck Neck: Yes no lymphadenopathy and Yes supple Thyroid: Thyroid normal Resp Auscultation: clear to auscultation bilaterally, no rales and no wheezes Cardio Rate: regular rate Rhythm: regular rhythm Heart sounds: no murmurs GI Palpation (GI): Soft to palpation and nontender Auscultation: normal bowel sounds General: Yes no CVA tenderness Back/Spine/Pelvis Back: no CVA tenderness Skin Rashes: rashes noted ((+) patch of scaling rash near the right ankle area on the lower leg) Extrem General: Yes no clubbing, cyanosis or edema Assessment and Plan Assessment & Plan (1) Scalp cyst: Code(s): L72.9 - Follicular cyst of the skin and subcutaneous tissue, unspecified Plan: (+) large unroofed cyst on top of patient's head (at the parieto-occipital area) that patient reports is very painful; lesion appears to be actively draining / oozing Dressing removed and attempted to clean lesion but efforts were limited by increased pain on the patient's part and he asked to hold off on further attempts; lesion is then covered back up with new and clean dressing Will start patient empirically on Doxycycline 100 mg BID x 7 days and will send an urgent referral out to surgery for further evaluation and possible excision if appropriate and advised that hopefully they will be able to get to him sometime next week Will also increase his Acetaminophen for pain temporarily to 500 mg QID PRN - is reminded not to take more than 4 tablets of these in a day (2) Folliculitis: Code(s): L73.9 - Follicular disorder, unspecified Plan: Will refer him to dermatology for further evaluation and management (3) Eczema: Code(s): L30.9 - Dermatitis, unspecified Qualifiers: Eczema type: unspecified Qualified Code(s): L30.9 - Dermatitis, unspecified Plan: Advised that the patchy rash near his right ankle appears to be an eczema-type lesion Will start him for now on Triamcinolone acetonide 0.5% cream BID PRN - is advised that he can also try applying this over the follicular lesions that he has on other areas of his body but not on his face (4) Neuropathy: Code(s): G62.9 - Polyneuropathy, unspecified Plan: Continue Gabapentin 600 mg TID He has an appointment with neurology next month on 02/23/2024 and is emphasized that he should NOT miss this appt Have advised him that neuropathy is from PERMANENT nerve damage and technically has no cure although there are meds (like Gabapentin) that we can use to help manage his symptoms and keep them tolerable but the natural progression of neuropathy is continued worsening until he has complete loss of sensation Advised that if neurology has no additional recommendations, a referral to pain management may be helpful (5) Benign prostatic hyperplasia with weak urinary stream: Code(s): N40.1 - Benign prostatic hyperplasia with lower urinary tract symptoms; R39.12 - Poor urinary stream Plan: He is advised that his symptoms are consistent with BPH Will start him for now on Tamsulosin 0.4 mg Q HS Will also refer him to urology for further evaluation and management (6) Essential hypertension: Code(s): I10 - Essential (primary) hypertension Plan: Reinforced low sodium diet - goal is systolic BP of 120 mm or less Continue Amlodipine 5 mg QD and Metoprolol ER 25 mg QD Is also on Clonidine 0.2 mg BID - this helps with his BP as well as with his withdrawal symptoms and anxiety although he has not been taking this lately due to increased dizziness everytime he takes this (7) Mixed hyperlipidemia: Code(s): E78.2 - Mixed hyperlipidemia Plan: Reinforced low cholesterol diet Advised that his serum triglyceride level has improved on his most recent labs although his LDL cholesterol was still significantly elevated at 182 mg/dl We increased his Atorvastatin to 20 mg QD at his last appointment Will have him recheck his labs and fasting lipids in 3 months for follow up (8) Acquired hypothyroidism: Code(s): E03.9 - Hypothyroidism, unspecified Plan: Continue Levothyroxine 25 mcg QD Will recheck his TFTs in 4 months for follow up (9) GERD (gastroesophageal reflux disease): Code(s): K21.9 - Gastro-esophageal reflux disease without esophagitis Qualifiers: Esophagitis presence: without esophagitis Qualified Code(s): K21.9 - Gastro-esophageal reflux disease without esophagitis Plan: Dietary restrictions reinforced Continue Pantoprazole 40 mg QD (10) Anemia: Code(s): D64.9 - Anemia, unspecified Qualifiers: Anemia type: unspecified type Qualified Code(s): D64.9 - Anemia, unspecified Plan: Continue Ferrous Sulfate 324 mg QD Will continue to monitor his CBC regularly (11) Chronic alcohol abuse: Code(s): F10.10 - Alcohol abuse, uncomplicated Plan: S/P detox late last year; states that he is currently still staying at the [facility] in [place] and is now 8 months sober Continue Thiamine 100 mg QD, Folic Acid 1 mg QD and B12 1000 mcg QD - Rx sent/refilled (12) Anxiety: Code(s): F41.9 - Anxiety disorder, unspecified Plan: Continue Hydroxyzine 50 mg TID PRN and Buspirone 15 mg TID Also takes Melatonin 5 mg Q HS to help him sleep at night He was not taking his Clonidine 0.2 mg BID - is instructed to at least take his bedtime dose to help with his anxiety Will also increase his Sertraline from 100 mg to 150 mg QD Follow up with psychiatry as scheduled (13) Schizoaffective disorder: Code(s): F25.9 - Schizoaffective disorder, unspecified Qualifiers: Schizoaffective disorder type: unspecified Qualified Code(s): F25.9 - Schizoaffective disorder, unspecified Plan: Continue Bupropion 75 mg BID and Gabapentin 600 mg TID; will increase his Sertraline to 150 mg QD Follow up with psychiatry as scheduled (14) Smoker: Code(s): F17.200 - Nicotine dependence, unspecified, uncomplicated Plan: Counseled again on smoking cessation Plan Follow up in 4 months Orders: Orders UA CC w/rflx Micro + Cult 4 Months R30.0 - Dysuria Vitamin D 25-OH Total 4 Months E55.9 - Vitamin D deficiency, unspecified Free T4 (Free Thyroxine) 4 Months E03.9 - Hypothyroidism, unspecified Complete Blood Count Auto Diff 4 Months D64.9 - Anemia, unspecified Comprehensive [place]. Panel Fast 4 Months E78.00 - Pure hypercholesterolemia, unspecified Vitamin B12 and Folate 4 Months E53.8 - Deficiency of other specified B group vitamins Lipid Panel 4 Months E78.00 - Pure hypercholesterolemia, unspecified Thyroid Stimulating Hormone 4 Months E03.9 - Hypothyroidism, unspecified Referrals General Surgery Referral L72.9 - Follicular cyst of the skin and subcutaneous tissue, unspecified Dermatology Referral L73.9 - Follicular disorder, unspecified Urology Referral N40.1 - Benign prostatic hyperplasia with lower urinary tract symptoms, R39.12 - Poor urinary stream Medications: New tamsulosin 0.4 mg PO BEDTIME 90 days 90 caps 1RF N40.1 - Benign prostatic hyperplasia with lower urinary tract symptoms, R35.1 - Nocturia doxycycline monohydrate 100 mg PO BID 7 days 14 caps 0RF triamcinolone acetonide 0.5% 1 appl topical BID 15 grams 3RF Changed From cyanocobalamin (vitamin B-12) 500 mcg PO DAILY 30 tabs 0RF To cyanocobalamin (vitamin B-12) 1,000 mcg PO DAILY 90 days 90 tabs 1RF From thiamine mononitrate (vit B1) 100 mg PO DAILY 30 tabs 0RF To thiamine mononitrate (vit B1) 100 mg PO DAILY 90 days 90 tabs 1RF From sertraline 100 mg PO DAILY 30 days 30 tabs 1RF To sertraline 150 mg (1.5 x 100 mg) PO DAILY 30 days 45 tabs 1RF From acetaminophen 325 mg PO QID 7 days PRN 28 caps 0RF pain To acetaminophen DO NOT TAKE MORE THAN 4 TABLETS IN A DAY 500 mg PO QID 10 days PRN 30 caps 0RF pain MDD 4 tablets a day From pantoprazole 80 mg (2 x 40 mg) PO DAILY 30 days 60 tabs 1RF To pantoprazole 40 mg PO DAILY Coding Level of Care Code Est Pt Level 4 (23763) Diagnoses Scalp cyst L72.9 Folliculitis L73.9 Eczema, unspecified type L30.9 Eczema type: unspecified Neuropathy G62.9 Benign prostatic hyperplasia with weak urinary stream N40.1; R39.12 Essential hypertension I10 Mixed hyperlipidemia E78.2 Acquired hypothyroidism E03.9 Gastroesophageal reflux disease without esophagitis K21.9 Esophagitis presence: without esophagitis Anemia, unspecified type D64.9 Anemia type: unspecified type Chronic alcohol abuse F10.10 Anxiety F41.9 Schizoaffective disorder, unspecified type F25.9 Schizoaffective disorder type: unspecified Smoker F17.200
[2024-01-15 13:45] VITALS: BP 100/60; PULSE 78; O2SAT 96; BMI 23.2
== END 2024-01-15 14:31 | disposition home or self-care (01) ==
PROVIDERS: PCP Internal Medicine; Visit Provider Internal Medicine
DX: L72.9 Follicular cyst of the skin and subcutaneous tissue, unspecified (principal); F41.9 Anxiety disorder, unspecified; F25.9 Schizoaffective disorder, unspecified; L73.9 Follicular disorder, unspecified; G62.9 Polyneuropathy, unspecified; L30.9 Dermatitis, unspecified; N40.1 Benign prostatic hyperplasia with lower urinary tract symptoms; R39.12 Poor urinary stream; I10 Essential (primary) hypertension; E78.2 Mixed hyperlipidemia; E03.9 Hypothyroidism, unspecified; K21.9 Gastro-esophageal reflux disease without esophagitis
CPT/HCPCS: 99214

== ENCOUNTER 2024-01-28 09:58 | Outpatient (AMB) | payer MEDICARE, MEDICAID, SELFPAY ==
--- NOTE | 2024-01-28 10:03 | MHC.OFFVIS ---
Vital Signs 01/28/24 10:08 Height 6 ft 1 in Weight 175 lb 7.984 oz BMI 23.2 Intake Visit Reasons: Royce cyst of head Intake Note: This patient presents for an assessment for sebaceous cyst of scalp. Patient c/o; reports he went to the [facility] in [place] and they did an I&D, reports he went to his PCP the day after he was seen at the [facility] clinic and his PCP prescribed him one round of abx, reports daily migraines, reports pus. Electrical Sign Wirer Required: No Accompanied by: Self / Same As Patient Allergies aspirin [ASA] Allergy (Unknown, Verified 01/28/24 10:08) FACIAL SWELLING Penicillins [PENICILLINS] Allergy (Unknown, Verified 01/28/24 10:08) HIVES trazodone Allergy (Verified 01/28/24 10:08) Anaphylaxis tramadol [TRAMADOL] Adverse Reaction (Unknown, Verified 01/28/24 10:08) NAUSEA & VOMITING Medication List - Last Reconciled 01/28/24 by Glen Redd MD acetaminophen 500 mg PO QID PRN 10 days MDD 4 tablets a day albuterol sulfate 90 mcg/actuation 2 puffs inhalation Q6H PRN amlodipine 5 mg PO DAILY 30 days atorvastatin 20 mg PO BEDTIME bupropion HCl 75 mg PO BID buspirone 15 mg PO TID 30 days chlorpromazine 200 mg PO QPM 30 days clonidine HCl 0.2 mg PO BID 30 days cyanocobalamin (vitamin B-12) 1,000 mcg PO DAILY 90 days doxycycline monohydrate 100 mg PO BID 7 days ferrous sulfate 324 mg PO DAILY folic acid 1 mg PO DAILY gabapentin 600 mg PO TID hydroxyzine HCl 100 mg (2 x 50 mg) PO TID 30 days levothyroxine 25 mcg PO DAILY 30 days lidocaine 4% (Lidocaine Pain Relief) 1 patch transdermal DAILY melatonin 5 mg PO BEDTIME metoprolol succinate ER 25 mg PO DAILY 30 days multivitamin (Daily-Jamin tablet) 1 tab PO DAILY naloxone 4 mg/actuation (Narcan) 4 mg intranasal Q2M PRN pantoprazole 40 mg PO DAILY sertraline 150 mg (1.5 x 100 mg) PO DAILY 30 days tamsulosin 0.4 mg PO BEDTIME 90 days thiamine mononitrate (vit B1) 100 mg PO DAILY 90 days triamcinolone acetonide 0.5% 1 appl topical BID HPI HPI Royce cyst of head: Details: 58-year-old male referred for a cyst on his scalp. He says he went to the urgent care center about 2 weeks ago because of an area of swelling and tenderness on his scalp. He said an I&D was done under local anesthesia. He says that this was painful at that time . He had a follow-up with his primary care physician and was referred to me. He currently states that the area is flat now but he notices a little bit of drainage. He says he has a type a personality and does not like any thing ?abnormal? on his scalp. [facility] Medical History Smoker Mixed hyperlipidemia Acquired hypothyroidism Essential hypertension Alcohol use disorder, severe, dependence Polysubstance use disorder Schizoaffective disorder Opiate dependence Colitis Chronic diarrhea Heavy tobacco smoker GERD (gastroesophageal reflux disease) History of colitis Surgical History No pertinent past surgical history Family History Mother Alzheimer disease Multiple sclerosis Other Mental health disorder Social History Household Members: None Housing: Other Housing Other:: hotel Do you presently have visiting nurse or other home services: No Alcohol intake: never Comment: 1:1 sitter Patient Tobacco Use Status: Current everyday Tobacco user Tobacco use type: Cigarette Cigarette Packs Per Day: 1 Cigarettes Per Day: 20.0 Years Smoked: 30 e-Cigarette/Vaping Use: Never Used Second Hand Smoke Exposure: Yes Substance Use Type: Marijuana service: No Current occupational status: disabled Sexual orientation: Straight/Heterosexual Cognitive needs: No Hearing needs: No Vision needs: No Review of Systems Const Denies chills and Denies fever(s) Card Denies chest pain, Denies dyspnea and Denies dyspnea on exertion Resp Denies cough, Denies dyspnea and Denies dyspnea on exertion GI Denies hematochezia and Denies change in bowel habits Denies hematuria and Denies difficulty urinating Musc Denies back pain and Denies limited range of motion Neuro Denies focal weakness and Denies convulsions Psych Reports anxiety, Reports depression and Reports mood swings Physical Exam Const General: comfortable and no acute distress Orientation/consciousness: patient oriented x3 HEENT Other: Mid parietal part of the scalp with note of an area of redness, with absence of hair, about 2.5 cm in diameter, no induration, no cystic mass, no open wound, no tenderness; the area is flat at this time Neck Neck: Yes no lymphadenopathy Resp Auscultation: clear to auscultation bilaterally Cardio Rhythm: regular rhythm GI Palpation (GI): Soft to palpation, nontender and no guarding Neuro General: patient oriented x3 Assessment & Plan Assessment & Plan (1) Scalp cyst: Code(s): L72.9 - Follicular cyst of the skin and subcutaneous tissue, unspecified Category: Medical Plan: This seems to have been drained when he went to Urgent Care as the area is flat on examination without any palpable mass or induration.. There is some dry scabbing. I told him that I do not feel any cystic mass or induration at this time. I will see him again in about a month to re-evaluate him to see if there is any residual cyst He understands the plan. Coding Level of Care Code New Pt Level 3 (91471) Diagnoses Scalp cyst L72.9
[2024-01-28 10:08] VITALS: BMI 23.2
== END 2024-01-28 10:20 | disposition home or self-care (01) ==
PROVIDERS: PCP Internal Medicine; Referring Provider Internal Medicine; Visit Provider Surgery
DX: L72.9 Follicular cyst of the skin and subcutaneous tissue, unspecified (principal)
CPT/HCPCS: 99203

== ENCOUNTER → 2024-01-28 09:58 | Outpatient (BNVA) | payer MEDICARE, MEDICAID, SELFPAY | PROVIDERS: PCP Internal Medicine; Referring Provider Internal Medicine; Visit Provider Surgery | DX: L72.9 Follicular cyst of the skin and subcutaneous tissue, unspecified (principal) | CPT/HCPCS: 99202 ==

== ENCOUNTER 2024-02-17 11:11 | Emergency (ER) | payer MEDICARE, MEDICAID, SELFPAY ==
[2024-02-17] VITALS (7 sets, daily range): BP systolic 116–154; BP diastolic 76–95; PULSE 67–93; RESP 14–16; TEMP 36.6–36.7; O2SAT 96–98; BMI 23.3
--- NOTE | 2024-02-17 | ECG_ITS ---
Test Reason : cp Blood Pressure : / mmHG Vent. Rate : 075 BPM Atrial Rate : 075 BPM P-R Int : 164 ms QRS Dur : 092 ms QT Int : 414 ms P-R-T Axes : 065 -43 025 degrees QTc Int : 462 ms Normal sinus rhythm Left axis deviation Nonspecific ST abnormality Abnormal ECG When compared with ECG of 27-APR-2023 15:04, Nonspecific T wave abnormality now evident in Inferior leads Referred By: Marina Hayward Electronically Signed By:JOS DUMONT MD
--- NOTE | ~2024-02-17 | XR_ITS ---
EXAMINATION: XR CHEST CLINICAL INFORMATION: Shortness of breath. COMPARISON: Chest radiograph 04/27/2023. TECHNIQUE: Frontal view of the chest was obtained. FINDINGS: Normal appearance of the cardiomediastinal silhouette. Slightly increased interstitial markings compared to most recent prior. New equivocal focal airspace density overlying the lateral right lung base. No pleural effusion or pneumothorax. Redemonstration of multiple right-sided rib fractures with overlying reconstruction plates and interval migration of 2 screws that are adjacent to the superior aspect of the posterolateral seventh and eighth ribs. Redemonstration of a mildly displaced left posterolateral fourth rib fracture. XR/XR chest 1V IMPRESSION: 1. Slightly increased interstitial markings compared to most recent prior which could be related with an infectious/inflammatory process of the small airways. 2. New equivocal focal airspace density overlying the lateral right lung base which could represent summation artifacts versus early infiltrate. Recommend short-term follow-up. 3. Redemonstration of multiple right-sided rib fractures with interval migration of 2 screws that are adjacent to the superior aspect of the seventh and eighth ribs.
--- NOTE | ~2024-02-17 | CT_ITS ---
EXAMINATION: CT ABDOMEN AND PELVIS WITH CONTRAST CLINICAL INFORMATION: Left lower quadrant tenderness. COMPARISON: CT abdomen/pelvis 05/29/2022. TECHNIQUE: Multidetector volumetric images were obtained from the superior aspect of the liver through the pubic symphysis following administration 85 mL of Omnipaque 350 intravenous contrast. Sagittal and coronal reformatted images were obtained on the technologist's workstation. Oral contrast: No This CT examination was performed using dose optimization techniques as appropriate, variously including the following: *Automated exposure control *Adjustment of mA and/or kV according to patient size (this includes techniques or standardized protocols for targeted exams where dose is matched to indication/reason for exam; i.e. extremities or head) *Use of iterative reconstruction technique DLP: 463 mGy-cm FINDINGS: LUNG BASES: Compared to 05/29/2022, increased reticulation in the periphery of the right greater than left lungs as well as multiple new peripheral micronodules. No dense consolidation or pleural effusion. Partially seen coronary artery calcifications. LIVER, GALLBLADDER, AND BILIARY TREE: The liver is normal in size, shape, and attenuation. No focal hepatic lesion or biliary ductal dilatation is present. The gallbladder is unremarkable with no evidence of radiopaque gallstones, gallbladder wall thickening, or obvious pericholecystic inflammatory changes. PANCREAS: Unremarkable. SPLEEN: Unremarkable. ADRENAL GLANDS: Unremarkable. KIDNEYS AND URETERS: The kidneys are normal in size, shape, and attenuation. No hydronephrosis, hydroureter, or calculi seen. No perinephric stranding. BLADDER: Unremarkable. GASTROINTESTINAL TRACT: The stomach and the small bowel are nondilated. Normal short appendix. Suspect mild diffuse wall thickening of the descending and sigmoid colon that is overall suboptimally assessed due to underdistention. Mild colonic diverticulosis. No significant pericolonic inflammatory changes. No evidence of bowel obstruction. ABDOMINAL WALL: No significant hernia is appreciated. LYMPH NODES: No lymphadenopathy. VASCULAR: Severe atherosclerotic disease. Normal caliber of the abdominal aorta. PELVIC VISCERA: Unremarkable. OSSEOUS STRUCTURES: Nonspecific curvilinear radiolucency in the superolateral aspect of the left femoral head best visualized on coronal image 46 series 7. Degenerative changes of the spine. Partially seen right-sided rib fractures with overlying fixation plates. CT/CT abdomen pelvis w IV con IMPRESSION: 1. Suspect mild diffuse wall thickening of the descending and sigmoid colon that is overall suboptimally assessed due to underdistention. Recommend clinical correlation for acute colitis. 2. Increased reticulation and multiple new micronodules in the periphery of the right greater than left lungs. These could be related with underlying infectious/inflammatory process and/or underlying interstitial lung disease. Recommend follow-up with CT chest in 3 months. 3. Nonspecific curvilinear radiolucency in the superolateral aspect of the left femoral head that could indicate some degree of avascular necrosis. Correlate with point tenderness and if indicated further evaluation with an MR of the left hip.
--- NOTE | 2024-02-17 11:58 | ED_ITS ---
HPI - General Adult General Chief complaint: Dizziness Stated complaint: NO PO INTAKE X7 DAYS,DIZZY,NAUSEA,SOB PER EMS Time Seen by Provider: 02/17/24 11:31 Source: patient, EMS, RN notes reviewed and old records reviewed Mode of arrival: EMS Limitations: no limitations History of Present Illness ED Provider: Emil Hayward PA-C HPI narrative: 58-year-old male with a history of schizoaffective disorder, polysubstance use disorder, alcohol use disorder, HTN, HLD, hypothyroidism, GERD, colitis, active smoker who presents to the ER for evaluation of dizziness and left-sided chest pain, generally not feeling well for the last several days. Patient states he woke up over the weekend with generalized weakness, decreased p.o. intake, not feeling well. He reports intermittent chills at home as well as dizziness. He states he has not been having any appetite, not eating or drinking much at home. He denies any urinary symptoms, cough, SOB. He states when he was in route to the hospital today he developed left-sided chest pain, that was sharp, in the left upper chest and nonradiating. Pain is better. Patient reports persistent dizziness and lightheadedness, worse with movement. No focal weakness, numbness, tingling. No vision changes. MD complaint: Dizziness, lightheadedness, weakness, decreased p.o. intake Onset (ago): day(s) (5) Severity: moderate Relieving factors: rest Exacerbating factors: movement Associated symptoms: chest pain, fever/chills, headaches, loss of appetite, malaise, shortness of breath and weakness Treatments prior to arrival: none Related Data Home Medications ?Medication ?Instructions ?Recorded ?Confirmed melatonin 5 mg capsule 5 mg PO BEDTIME 08/28/23 01/28/24 pantoprazole 40 mg tablet,delayed 40 mg PO DAILY 01/15/24 01/28/24 release Previous Rx's ?Medication ?Instructions ?Recorded bupropion HCl 75 mg tablet 75 mg PO BID #28 tabs 04/21/23 ferrous sulfate 324 mg (65 mg 324 mg PO DAILY #30 tabs 04/21/23 iron) tablet,delayed release folic acid 1 mg tablet 1 mg PO DAILY #30 tabs 04/21/23 multivitamin (Daily-Jamin tablet) 1 tab PO DAILY #30 tabs 04/21/23 lidocaine 4 % topical patch 1 patch transdermal DAILY #10 ea 05/11/23 (Lidocaine Pain Relief) naloxone 4 mg/actuation nasal 4 mg intranasal Q2M PRN opioid 05/11/23 spray (Narcan) overdose #2 ea buspirone 15 mg tablet 15 mg PO TID 30 days #90 tabs 10/16/23 amlodipine 5 mg tablet 5 mg PO DAILY 30 days #90 tabs 11/29/23 atorvastatin 20 mg tablet 20 mg PO BEDTIME #90 tabs 11/29/23 levothyroxine 25 mcg capsule 25 mcg PO DAILY 30 days #90 caps 11/29/23 metoprolol succinate 25 mg 25 mg PO DAILY 30 days #90 tabs 11/29/23 tablet,extended release 24 hr albuterol sulfate 90 mcg/actuation 2 puff inhalation Q6H PRN 12/25/23 aerosol inhaler shortness of breath or wheezing #8.5 grams chlorpromazine 200 mg tablet 200 mg PO QPM 30 days #30 tabs 01/13/24 clonidine HCl 0.2 mg tablet 0.2 mg PO BID 30 days #60 tabs 01/13/24 acetaminophen 500 mg capsule 500 mg PO QID PRN pain 10 days #30 01/15/24 caps cyanocobalamin (vitamin B-12) 1,000 mcg PO DAILY 90 days #90 tabs 01/15/24 1,000 mcg tablet doxycycline monohydrate 100 mg 100 mg PO BID 7 days #14 caps 01/15/24 capsule sertraline 100 mg tablet 150 mg (1.5 x 100 mg) PO DAILY 30 01/15/24 days #45 tabs tamsulosin 0.4 mg capsule 0.4 mg PO BEDTIME 90 days #90 caps 01/15/24 thiamine mononitrate (vit B1) 100 100 mg PO DAILY 90 days #90 tabs 01/15/24 mg tablet gabapentin 600 mg tablet 600 mg PO TID #90 tabs 01/25/24 hydroxyzine HCl 50 mg tablet 100 mg (2 x 50 mg) PO TID anxiety 01/25/24 30 days #180 tabs hydroxyzine pamoate 100 mg capsule 100 mg PO Q8H PRN anxiety 30 days 01/29/24 #90 caps triamcinolone acetonide 0.5 % 1 appl topical BID #15 grams 02/03/24 topical cream levofloxacin 500 mg tablet 500 mg PO DAILY #7 tabs 02/17/24 metronidazole 500 mg tablet 500 mg PO BID #14 tabs 02/17/24 ondansetron 4 mg disintegrating 4 mg PO Q8H PRN nausea and 02/17/24 tablet vomiting #7 tabs Allergies Allergy/AdvReac Type Severity Reaction Status Date / Time aspirin [ASA] Allergy Unknown FACIAL Verified 02/17/24 11:21 SWELLING Penicillins [PENICILLINS] Allergy Unknown HIVES Verified 02/17/24 11:21 trazodone Allergy Anaphylaxis Verified 02/17/24 11:21 tramadol [TRAMADOL] AdvReac Unknown NAUSEA & Verified 02/17/24 11:21 VOMITING Review of Systems 2 Review of Systems: Yes all other systems are reviewed and are negative [facility] Past Medical History Medical History Smoker Mixed hyperlipidemia Acquired hypothyroidism Essential hypertension Alcohol use disorder, severe, dependence Polysubstance use disorder Schizoaffective disorder Opiate dependence Colitis Chronic diarrhea Heavy tobacco smoker GERD (gastroesophageal reflux disease) History of colitis Surgical History No pertinent past surgical history Family History Family History Mother Alzheimer disease Multiple sclerosis Other Mental health disorder Social History Social History Household Members: None Housing: Other Housing Other:: hotel Do you presently have visiting nurse or other home services: No Alcohol intake: never Comment: 1:1 sitter Patient Tobacco Use Status: Current everyday Tobacco user Tobacco use type: Cigarette Cigarette Packs Per Day: 1 Cigarettes Per Day: 20.0 Years Smoked: 30 e-Cigarette/Vaping Use: Never Used Second Hand Smoke Exposure: Yes Substance Use Type: Marijuana Advance Directives: No Advance Directives Information Provided: No Do you have a plan to hurt others: No Plan service: No Current occupational status: disabled Sexual orientation: Straight/Heterosexual Cognitive needs: No Hearing needs: No Vision needs: No Physical Exam ED Vital Signs: Vital Signs - 24 hr 02/17/24 11:17 02/17/24 11:23 02/17/24 12:13 Temperature 97.8 F 97.8 F Pulse Rate 67 69 71 Respiratory Rate 16 14 Blood Pressure 141/95 H 141/95 H 154/90 H Pulse Oximetry 97 96 Oxygen Delivery Method Room Air Room Air 02/17/24 16:29 02/17/24 16:29 02/17/24 16:30 Temperature 98.0 F Pulse Rate 80 93 71 Respiratory Rate 16 Blood Pressure 128/87 116/80 154/90 H Pulse Oximetry 96 Oxygen Delivery Method Room Air BMI result Body Mass Index 23.3 Appearance: Alert. Oriented X3. Pale. Head: normocephalic, atraumatic. Eyes: Pupils equal, round and reactive to light. ENT: Pharynx normal. No tonsillar swelling or exudate. Neck: Normal inspection. Neck supple. CVS: Normal heart rate and rhythm. Pulses normal. Respiratory: No respiratory distress. Breath sounds diminished in the right lower lobe. Abdomen: Soft with LLQ tenderness and guarding, no rebound, hyperactive BS x4 Skin: warm and dry. Normal skin color. Normal skin turgor. No rashes. Extremities: No lower extremity edema. No joint swelling. Neuro/psych: Oriented X 3. No motor deficit. No sensory deficit. CN II-XII intact. Normal speech and cognition. Flat affect Course Reevaluation(s) Reevaluation #1: Patient received in sign-out at change of shift pending urinalysis, repeat troponin. Patient's UA was reviewed, there is no acute sign of infection. He was able to urinate without any catheterization. Patient's repeat troponin was negative, he is stable discharge at Time: 17:09 Medications Administered Discontinued Medications Generic Name Dose Route Start Last Admin Trade Name Freq PRN Reason Stop Dose Admin Acetaminophen 975 mg 02/17/24 16:08 02/17/24 16:18 Acetaminophen 325 Mg Tablet PO 02/17/24 16:09 975 mg ONCE ONE Administration Sodium Chloride 1,000 mls @ 999 mls/hr 02/17/24 12:15 02/17/24 15:11 Ns IV 02/17/24 13:15 Infused .Q1H1M CALVIN Infusion Sodium Chloride 1,000 mls @ 999 mls/hr 02/17/24 15:00 02/17/24 16:20 Ns IV 02/17/24 16:00 Infused .Q1H1M CALVIN Infusion Iohexol 100 ml 02/17/24 13:48 02/17/24 13:49 Iohexol 350 Mg/Ml 100 Ml Infus..Btl IV 02/17/24 13:49 85 ml ONCE ONE Administration Meclizine HCl 25 mg 02/17/24 14:54 02/17/24 15:11 Meclizine Hcl 25 Mg Tablet PO 02/17/24 14:55 25 mg ONCE ONE Administration Ondansetron HCl 4 mg 02/17/24 12:13 02/17/24 13:19 Ondansetron Hcl 4 Mg/2 Ml Vial IVPUSH 02/17/24 12:14 4 mg ONCE ONE Administration Ondansetron HCl 4 mg 02/17/24 16:08 02/17/24 16:19 Ondansetron Odt 4 Mg Tab.Rapdis TRANSLINGU 02/17/24 16:09 4 mg ONCE ONE Administration Procedures EJ/Peripheral Line Arm R: Time Out Performed: No Skin Cleansed in Sterile Fashion: Yes Size (gauge): 20 IV Secured and Dressing Applied: Yes Patient Tolerated Procedure: well and no complications Medical Decision Making Medical Decision Making MDM Narrative: 58-year-old male with a history of schizoaffective disorder, polysubstance use disorder, alcohol use disorder, HTN, HLD, hypothyroidism, GERD, colitis, active smoker who presents to the ER for evaluation of dizziness and left-sided chest pain, generally not feeling well for the last several days. Patient arrives to the ER pale, diaphoretic, not feeling well. He was reporting left-sided chest pain, nonradiating. EKG without ischemic changes. On exam he did have left lower quadrant tenderness so CT scan was ordered. His lab work was unrevealing, no leukocytosis. Normal renal function no LFT derangements. His troponin was negative. Chest x-ray was reviewed, he does have a new opacity in the right lower lobe. Two screws also migrated from his previous rib surgeries. His surgeon was at [facility]. He does report some discomfort in the chest that has been present for a very long time. No new trauma. Patient was given 2 L of IV fluids for reports of lightheadedness and dizziness. His symptoms overall improved but not completely resolved. Abdominal pain is improved after Toradol. He reporting a headache so Tylenol was ordered. He is unable to urinate after 2 L of fluids bladder scan is ordered. Repeat troponin is also pending. Patient updated on results of his labs and imaging. Hopeful to start on oral antibiotics and discharge home with outpatient follow-up. Signed out to Omkar oliveira PA-C who will follow-up repeat labs, urinalysis and p.o. trial. Differential Diagnosis Differential Diagnoses: The differential diagnosis associated with the presentation includes ACS, sepsis, UTI, colitis, appendicitis, cholecystitis, dehydration, acute kidney injury, pneumonia, viral syndrome Admission/Observation Consideration of admission/observation: Escalation of care including admission/observation considered Lab Data MDM Lab Attestation statement: I reviewed the patient's lab results. No leukocytosis, mild elevation of BUN, normal LFTs, no significant metabolic derangement 02/17/24 12:44 02/17/24 12:44 Labs: Lab Results 02/17/24 02/17/24 02/17/24 Range/Units 12:44 16:17 16:55 WBC 9.3 (4.8-10.8) X10*3/uL RBC 5.57 (4.60-5.80) X10*6/uL Hgb 15.2 (14.0-18.0) g/dl Hct 45.1 (42.0-52.0) % MCV 81.0 (80.0-98.0) fL MCH 27.3 (27.0-33.0) pg MCHC 33.7 (31.0-36.0) g/dl RDW 12.9 (11.0-16.0) % Plt Count 231 (160-400) X10*3/uL MPV 8.6 L (9.4-12.4) fL Immature Gran % (Auto) 1.0 H (0.0-0.4) % Neut % (Auto) 80.2 H (45-73) % Lymph % (Auto) 11.6 L (20-40) % [place] % (Auto) 5.4 (2-11) % Eos % (Auto) 0.8 (0-4) % Baso % (Auto) 1.0 (0-2) % Lymph # (Auto) 1.1 L (1.2-4.9) X10*3/uL [place] # (Auto) 0.5 (0.1-1.2) X10*3/uL Eos # (Auto) 0.1 (0.0-0.4) X10*3/uL Baso # (Auto) 0.1 (0.0-0.2) X10*3/uL Abs Immat Gran (auto) 0.09 H (0.00-0.03) X10*3/uL Absolute Neuts (auto) 7.4 (2.0-8.3) x10*3/uL Absolute Nucleated RBC 0.000 (0.0-0.012) X10*3/uL Nucleated RBC % (auto) 0.0 (0.0-0.2) /100WBC Sodium 140 (135-145) mmol/L Potassium 3.9 (3.3-5.1) mmol/L Chloride 103 (96-108) mmol/L Carbon Dioxide 21 L (22-29) mmol/L Anion Gap 20 (12-20) BUN 22 H (9-16) mg/dL Creatinine 1.03 (0.5-1.4) mg/dL Estim Creat Clear Calc 89.4 Estimated GFR > 60 Random Glucose 102 (60-115) mg/dL Calcium 10.0 (8.4-10.2) mg/dL Magnesium 1.7 (1.6-2.6) mg/dL Total Bilirubin 0.9 (0.0-1.0) mg/dL Direct Bilirubin 0.3 (0.0-0.5) mg/dL AST 21 (5-37) U/L ALT 17 (0-40) U/L Alkaline Phosphatase 134 H (39-117) U/L Troponin I High Sens < 2.7 < 2.7 (<3.5-35.0) ng/L B-Natriuretic Peptide < 10 (<100) pg/mL Total Protein 7.6 (6.5-8.0) g/dL Albumin 4.4 (3.5-5.0) g/dL TSH 2.46 (0.32-4.0) uIU/mL Urine Color Yellow Urine Appearance Clear Urine pH 6.5 (5.0-9.0) Ur Specific [place] >= 1.030 H (1.005-1.025) Urine Protein Negative (Neg-Trace) mg/dL Urine Glucose (UA) Negative (Negative) mg/dL Urine Ketones 15 (Negative) mg/dL Urine Blood Negative (Negative) Urine Nitrite Negative (Negative) Ur Leukocyte Esterase Negative (Negative) Ethyl Alcohol < 10 mg/dL Independent Interpretation I performed an independent interpretation of an: EKG, Plain X-Ray and CT Scan Interpretation: Chest x-ray with right lower lobe infiltrate, screws have migrated, agree with radiology read CT scan with at home air-fluid levels, no free air, mild inflammation of the colon consistent with mild colitis, no appreciated abscess. Agree with radiology read EKG with normal sinus rhythm, ventricular rate 75 beats per minute, normal VT interval, normal QTC, no ST segment elevations or depressions. Radiology Impression Discussion of test interpretation with radiology: I have reviewed the radiologist's reading. Radiologist Impression: CT/CT abdomen pelvis w IV con IMPRESSION: 1. Suspect mild diffuse wall thickening of the descending and sigmoid colon that is overall suboptimally assessed due to underdistention. Recommend clinical correlation for acute colitis. 2. Increased reticulation and multiple new micronodules in the periphery of the right greater than left lungs. These could be related with underlying infectious/inflammatory process and/or underlying interstitial lung disease. Recommend follow-up with CT chest in 3 months. 3. Nonspecific curvilinear radiolucency in the superolateral aspect of the left femoral head that could indicate some degree of avascular necrosis. Correlate with point tenderness and if indicated further evaluation with an MR of the left hip. Independent Historian Clinical information obtained from an independent historian. History obtained from or confirmed by: EMS External Record Review External record reviewed: Office record, Outpatient record, Prior outpatient labs and Prior outpatient radiology Prescription Management I considered prescription management with: Pain Medication and Antibiotic Chronic Conditions Patient?s care impacted by: Other (Schizoaffective disorder, anxiety) Social Determinants Patient?s care significantly limited by Social Determinants of Health including: Other Social Determinant of Health Critical Care Time Critical Care Time Critical Care Time: Yes Total Critical Care Time: 32 Attestation: I have personally provided critical care time exclusive of time spent on separately billable procedures. Time includes review of lab data, radiology results, re-evaluation after IV fluid boluses, pain medication, and monitoring for potential decompensation. Intervention performed as documented. Discharge Plan Discharge Clinical Impression: Colitis RLL pneumonia Qualifiers: Pneumonia type: due to unspecified organism Qualified Code(s): J18.9 - Pneumonia, unspecified organism Patient Disposition: Still a Patient Instructions: Pneumonia (ED), Colitis (ED) Additional Instructions: Your CT scan showed mild colitis. Your chest x-ray showed a right lower lobe infiltrate consistent with early pneumonia. It also showed 2 screws from your previous rib surgery have migrated. Recommend following up your thoracic surgeon for evaluation of this. Take the prescribed antibiotics as directed, complete the entire course and do not miss any doses Rest and drink plenty of fluids. Take the prescribed nausea medication as needed. Follow-up with your doctor as soon as possible. If you develop new or worsening symptoms call 911 or come back to the ER for further evaluation. Prescriptions: New levofloxacin 500 mg tablet 500 mg PO DAILY Qty: 7 0RF metronidazole 500 mg tablet 500 mg PO BID Qty: 14 0RF ondansetron 4 mg tablet,disintegrating 4 mg PO Q8H PRN (Reason: nausea and vomiting) Qty: 7 0RF No Action buspirone 15 mg tablet 15 mg PO TID 30 Days Qty: 90 1RF atorvastatin 20 mg tablet 20 mg PO BEDTIME Qty: 90 1RF amlodipine 5 mg tablet 5 mg PO DAILY 30 Days Qty: 90 1RF metoprolol succinate 25 mg tablet extended release 24 hr 25 mg PO DAILY 30 Days Qty: 90 1RF levothyroxine 25 mcg capsule 25 mcg PO DAILY 30 Days Qty: 90 1RF albuterol sulfate 90 mcg/actuation HFA aerosol inhaler 2 puff inhalation Q6H PRN (Reason: shortness of breath or wheezing) Qty: 8.5 1RF chlorpromazine 200 mg tablet 200 mg PO QPM 30 Days Qty: 30 1RF clonidine HCl 0.2 mg tablet 0.2 mg PO BID 30 Days Qty: 60 1RF gabapentin 600 mg tablet 600 mg PO TID Qty: 90 0RF hydroxyzine HCl 50 mg tablet 100 mg PO TID 30 Days Qty: 180 0RF hydroxyzine pamoate 100 mg capsule 100 mg PO Q8H PRN (Reason: anxiety) 30 Days Qty: 90 0RF triamcinolone acetonide 0.5 % cream 1 appl topical BID Qty: 15 3RF ferrous sulfate 324 mg (65 mg iron) Tablet,Delayed Release (Dr/Ec) 324 mg PO DAILY Qty: 30 0RF folic acid 1 mg Tablet 1 mg PO DAILY Qty: 30 0RF multivitamin [Daily-Jamin] Tablet 1 tab PO DAILY Qty: 30 0RF bupropion HCl 75 mg tablet 75 mg PO BID Qty: 28 1RF lidocaine [Lidocaine Pain Relief] 4 % Adhesive Patch,Medicated 1 patch transdermal DAILY Qty: 10 0RF naloxone [Narcan] 4 mg/actuation spray,non-aerosol 4 mg intranasal Q2M PRN (Reason: opioid overdose) Qty: 2 0RF Rx Instructions: spray 1 dose into ONE nostril; alternate nostrils w each dose until help arrives melatonin 5 mg capsule 5 mg PO BEDTIME pantoprazole 40 mg tablet,delayed release (DR/EC) 40 mg PO DAILY cyanocobalamin (vitamin B-12) 1,000 mcg tablet 1,000 mcg PO DAILY 90 Days Qty: 90 1RF thiamine mononitrate (vit B1) 100 mg tablet 100 mg PO DAILY 90 Days Qty: 90 1RF sertraline 100 mg tablet 150 mg PO DAILY 30 Days Qty: 45 1RF tamsulosin 0.4 mg capsule 0.4 mg PO BEDTIME 90 Days Qty: 90 1RF doxycycline monohydrate 100 mg capsule 100 mg PO BID 7 Days Qty: 14 0RF acetaminophen 500 mg capsule 500 mg PO QID MDD 4 tablets a day PRN (Reason: pain) 10 Days Qty: 30 0RF Rx Instructions: DO NOT TAKE MORE THAN 4 TABLETS IN A DAY Print Language: Welsh
[2024-02-17 12:49] LABS: MANUAL DIFF FLAG NO
[2024-02-17 12:52] LABS: Basophils Absolute Auto 0.1 X10*3/uL (0.0-0.2); Eosinophils Absolute Auto 0.1 X10*3/uL (0.0-0.4); Eosinophils Percent Auto 0.8 % (0-4); Hematocrit 45.1 % (42.0-52.0); Hemoglobin 15.2 g/dl (14.0-18.0); Imm Gran Abs Auto 0.09 X10*3/uL (0.00-0.03); Lymphocytes Absolute Auto 1.1 X10*3/uL (1.2-4.9); Lymphocytes Percent Auto 11.6 % (20-40); Mean Corpuscular HGB Conc 33.7 g/dl (31.0-36.0); Mean Corpuscular Hemoglobin 27.3 pg (27.0-33.0); Mean Platelet Volume 8.6 fL (9.4-12.4); Monocytes Absolute Auto 0.5 X10*3/uL (0.1-1.2); Monocytes Percent Auto 5.4 % (2-11); Neutrophils Absolute Auto 7.4 x10*3/uL (2.0-8.3); Neutrophils Percent Auto 80.2 % (45-73); Platelet Count 231 X10*3/uL (160-400); Red Blood Count 5.57 X10*6/uL (4.60-5.80); Red Cell Distribution Width 12.9 % (11.0-16.0); White Blood Count 9.3 X10*3/uL (4.8-10.8)
[2024-02-17 13:07] LABS: Alanine Aminotransferase 17 U/L (0-40); Albumin Level 4.4 g/dL (3.5-5.0); Alkaline Phosphatase 134 U/L (39-117); Anion Gap 20 (12-20); Aspartate Amino Transferase 21 U/L (5-37); Bilirubin Direct 0.3 mg/dL (0.0-0.5); Bilirubin Total 0.9 mg/dL (0.0-1.0); Blood Urea Nitrogen 22 mg/dL (9-16); Carbon Dioxide 21 mmol/L (22-29); Chloride 103 mmol/L (96-108); Creatinine Clr Calc Pharmacy 89.4; Estimated Glomerular Filt Rate > 60; Ethanol < 10 mg/dL; Glucose Random 102 mg/dL (60-115); Magnesium 1.7 mg/dL (1.6-2.6); Potassium 3.9 mmol/L (3.3-5.1); Sodium 140 mmol/L (135-145); Total Protein 7.6 g/dL (6.5-8.0)
[2024-02-17 13:10] LABS: B Type Natriuretic Peptide < 10 pg/mL (<100)
[2024-02-17 13:13] LABS: Troponin-I High Sensitivity < 2.7 ng/L (<3.5-35.0)
[2024-02-17] MEDS: 0.9 % Sodium Chloride 1,000 ML 999 ML IV ×3 (13:18→17:51)
[2024-02-17] MEDS: ondansetron HCL 4 MG/2 ML VIAL IVPUSH (13:19)
[2024-02-17 13:26] LABS: TSH reflex Free T4 2.46 uIU/mL (0.32-4.0)
[2024-02-17] MEDS: iohexoL 350 MG/ML 100 ML INFUS..BTL IV (13:49)
[2024-02-17] MEDS: Meclizine HCl 25 MG TABLET PO (15:11)
[2024-02-17] MEDS: Acetaminophen 325 MG TABLET 975 MG PO (16:18)
[2024-02-17] MEDS: Ondansetron ODT 4 MG TAB.RAPDIS TRANSLINGU (16:19)
[2024-02-17 16:52] LABS: Troponin-I High Sensitivity < 2.7 ng/L (<3.5-35.0)
[2024-02-17 17:02] LABS: Appearance Urine Clear; Color Urine Yellow; Glucose Urine UA Negative (Negative); Leukocyte Esterase Urine Negative (Negative); Nitrite Urine Negative (Negative); PH 6.5 (5.0-9.0); Specific Gravity - Urine >= 1.030 (1.005-1.025); Urine Blood Negative (Negative); Urine Ketones 15 mg/dL (Negative); Urine Protein Negative (Neg-Trace)
[2024-02-17] MEDS: Metoclopramide HCl 10 MG/2 ML VIAL IVPUSH (17:51)
[2024-02-17] MEDS: Ketorolac Tromethamine 30 MG/ML VIAL IVPUSH (17:51)
--- NOTE | 2024-02-17 18:30 | PC.NURSE ---
patient was set to be discharged, went to discharge patient, patient states he did not feel well enough to go home. provider notified, new orders placed, patient medicated per NOV.
== END 2024-02-17 19:23 | disposition home or self-care (01) ==
PROVIDERS: Physician Assistant; Emergency Provider Emergency Medicine; PCP Internal Medicine
DX: K52.9 Noninfective gastroenteritis and colitis, unspecified (principal); J18.9 Pneumonia, unspecified organism; R42 Dizziness and giddiness; R07.9 Chest pain, unspecified; R53.1 Weakness; R06.02 Shortness of breath; F17.210 Nicotine dependence, cigarettes, uncomplicated; I10 Essential (primary) hypertension; E78.2 Mixed hyperlipidemia; D64.9 Anemia, unspecified; K21.9 Gastro-esophageal reflux disease without esophagitis; F32.A Depression, unspecified; F25.9 Schizoaffective disorder, unspecified; F10.20 Alcohol dependence, uncomplicated; Y90.0 Blood alcohol level of less than 20 mg/100 ml; F19.90 Other psychoactive substance use, unspecified, uncomplicated; F11.20 Opioid dependence, uncomplicated; Z79.899 Other long term (current) drug therapy; Z79.02 Long term (current) use of antithrombotics/antiplatelets
CPT/HCPCS: 0241U; 36410; 36415; 71045; 74177; 80048; 80076; 80307; 81003; 83735; 83880; 84443; 84484; 85025; 93005; 96361; 96374; 96375; 99285; J1885; J2405; J2765; Q9967

== ENCOUNTER → 2024-02-17 11:31 | Outpatient (BNV) | payer MEDICARE, MEDICAID, SELFPAY | PROVIDERS: Emergency Provider Emergency Medicine; PCP Internal Medicine; Visit Provider Internal Medicine Cardiovascular Disease | DX: R07.9 Chest pain, unspecified (principal) | CPT/HCPCS: 93010 ==

== ENCOUNTER 2024-02-23 14:32 | Outpatient (AMB) | payer MEDICARE, MEDICAID, SELFPAY ==
--- NOTE | 2024-02-23 14:45 | A.OFFVIS_ITS ---
Vital Signs 02/23/24 14:48 Height 6 ft 1 in Weight 170 lb 2 oz BMI 22.4 BP 102/58 L Blood Pressure Location Rt brachial Position Sitting Respiration 16 Pulse 80 Pulse Source Pulse Oximeter Pulse Oximetry (%) 97 Oxygen Delivery Method Room Air Intake Visit Reasons: INP: Polyneuropathy - Confirmed Intake Note: Pt presents to the office for new pt evaluation for polyneuropathy. 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 Allergies aspirin [ASA] Allergy (Unknown, Verified 02/23/24 14:45) FACIAL SWELLING Penicillins [PENICILLINS] Allergy (Unknown, Verified 02/23/24 14:45) HIVES trazodone Allergy (Verified 02/23/24 14:45) Anaphylaxis tramadol [TRAMADOL] Adverse Reaction (Unknown, Verified 02/23/24 14:45) NAUSEA & VOMITING Medication List - Last Reconciled 02/23/24 by Sunshine Berumen MD acetaminophen 500 mg PO QID PRN 10 days MDD 4 tablets a day albuterol sulfate 90 mcg/actuation 2 puffs inhalation Q6H PRN amlodipine 5 mg PO DAILY 30 days atorvastatin 20 mg PO BEDTIME bupropion HCl 75 mg PO BID buspirone 15 mg PO TID 30 days chlorpromazine 200 mg PO QPM 30 days clonidine HCl 0.2 mg PO BID 30 days cyanocobalamin (vitamin B-12) 1,000 mcg PO DAILY 90 days doxycycline monohydrate 100 mg PO BID 7 days ferrous sulfate 324 mg PO DAILY folic acid 1 mg PO DAILY gabapentin 600 mg PO TID hydroxyzine HCl 100 mg (2 x 50 mg) PO TID 30 days hydroxyzine pamoate 100 mg PO Q8H PRN 30 days levofloxacin 500 mg PO DAILY levothyroxine 25 mcg PO DAILY 30 days lidocaine 4% (Lidocaine Pain Relief) 1 patch transdermal DAILY melatonin 5 mg PO BEDTIME metoprolol succinate ER 25 mg PO DAILY 30 days metronidazole 500 mg PO BID multivitamin (Daily-Jamin tablet) 1 tab PO DAILY naloxone 4 mg/actuation (Narcan) 4 mg intranasal Q2M PRN ondansetron 4 mg PO Q8H PRN pantoprazole 40 mg PO DAILY tamsulosin 0.4 mg PO BEDTIME 90 days thiamine mononitrate (vit B1) 100 mg PO DAILY 90 days triamcinolone acetonide 0.5% 1 appl topical BID HPI Comments Details: 58y/o male with h/o alcohol abuse ( sober for 9 mths ) , h/o opiod abuse , h/o polysubstance abuse comes for neuropathy evaluation. He reports numbness and pain in LE R>L and also right hand for few years . The symptoms are constant. He describes as severe pain and tries to walk on the side of the foot due to pain in his foot.In May 2022 he was admitted for Pneumonia, xanax withdrawal , developed cardiac arrest ? and was in ICU and his symptoms worsened since then . He denies tingling, he describes the pain as a dull pressure.Sleep does not improve.He has back pain but no radicular symptoms. He denies any urinary or bowel incontinence. He collado shad multiple falls due to pain and weakness. [facility] Medical History (Updated 02/23/24 @ 15:25 by Sunshine Berumen MD) Neuropathy Foot pain, bilateral Smoker Mixed hyperlipidemia Acquired hypothyroidism Essential hypertension Alcohol use disorder, severe, dependence Polysubstance use disorder Schizoaffective disorder Opiate dependence Colitis Chronic diarrhea Heavy tobacco smoker GERD (gastroesophageal reflux disease) History of colitis Surgical History History of back surgery No pertinent past surgical history Family History Mother Alzheimer disease Multiple sclerosis Other Mental health disorder Social History Household Members: None Housing: Other Housing Other:: hotel Do you presently have visiting nurse or other home services: No Alcohol intake: never Comment: 1:1 sitter Patient Tobacco Use Status: Current everyday Tobacco user Tobacco use type: Cigarette Cigarette Packs Per Day: 1 Cigarettes Per Day: 20.0 Years Smoked: 30 e-Cigarette/Vaping Use: Never Used Second Hand Smoke Exposure: Yes Substance Use Type: Marijuana service: No Current occupational status: disabled Sexual orientation: Straight/Heterosexual Cognitive needs: No Hearing needs: No Vision needs: No Physical Exam Vital Signs: Last Vital Signs Pulse 80 02/23/24 14:48 Resp 16 02/23/24 14:48 BP 102/58 L 02/23/24 14:48 Pulse Ox 97 02/23/24 14:48 Oxygen Delivery Method Room Air 02/23/24 14:48 BMI result Body Mass Index 22.4 Const General: cooperative and comfortable Nutritional Appearance: average body habitus Orientation/consciousness: patient oriented x3 Eyes Pupils: Equal, round and reactive pupils present Neuro Other: gait- wide based, unable to tandem FN sunny slow and tremors Mild sunny postural tremors Difficulty with foot taping R>L ANkle fracture - right ankle 1 year ago ( but he had numbness and pain even before that) General: patient oriented x3 and moves all extremities Cranial nerves: Yes Facial sensation intact/muscles of mastication intact, Yes Equal, round and reactive pupils present, Yes Bilaterally intact EOM present, Yes Nystagmus not present, Yes Normal facial strength present, Yes Midline tongue present and Yes Symmetric palate elevation present Cognition (Neuro): normal cognition Gait exam (Neuro): Antalgic gait present and Ataxic gait present Deep tendon reflexes (DTR's): Right triceps reflex intensity grade: 1+, Left triceps reflex intensity grade: 1+, Rt Biceps (C5, C6): 1+, Left biceps reflex intensity grade: 1+, Right brachioradialis reflex intensity grade: 1+, Left brachioradialis reflex intensity grade: 1+, Right patellar reflex intensity grade: 1+ and Left patellar reflex intensity grade: 1+ Coordination: [id number] test normal Results Reviewed Results Reviewed: EMG- 10/2022 Moderate large fiber sensory motor neuropathy - axonal and demyelinating featyres CT brain - Jun 2022 - normal February 2023 - normal Assessment & Plan Assessment & Plan (1) Foot pain, bilateral: Comment: related to neuropathy Code(s): M79.671 - Pain in right foot; M79.672 - Pain in left foot Category: Medical (2) Neuropathy: Comment: alcoholism , nutritional deficiency Code(s): G62.9 - Polyneuropathy, unspecified Category: Medical Plan Reviewed EMG results I will trial him on Duloxetine 20mg bid continue gabapenitn 600mg tid PT for strengthening Labs- Vit B 12 B6 B1 Orders: Orders Vitamin B6 Today F10.20 - Alcohol dependence, uncomplicated, G62.9 - Polyneuropathy, unspecified Vitamin B1 Today F10.20 - Alcohol dependence, uncomplicated, G62.9 - Polyneuropathy, unspecified PT Evaluation and Treatment Today G62.9 - Polyneuropathy, unspecified, M79.671 - Pain in right foot, M79.672 - Pain in left foot Vitamin B12 and Folate Today F10.20 - Alcohol dependence, uncomplicated, G62.9 - Polyneuropathy, unspecified Referrals Pain Management Referral G62.9 - Polyneuropathy, unspecified, M79.671 - Pain in right foot, M79.672 - Pain in left foot Medications: New duloxetine 20 mg PO BID 60 caps 6RF Coding Level of Care Code New Pt Level 4 (30825) Diagnoses Foot pain, bilateral M79.671; M79.672 Neuropathy G62.9
[2024-02-23 14:48] VITALS: BP 102/58; PULSE 80; RESP 16; O2SAT 97; BMI 22.4
== END 2024-02-23 15:30 | disposition home or self-care (01) ==
PROVIDERS: PCP Internal Medicine; Visit Provider Psychiatry & Neurology Neurology
DX: M79.671 Pain in right foot (principal); M79.672 Pain in left foot; G62.9 Polyneuropathy, unspecified
CPT/HCPCS: 99204

== ENCOUNTER → 2024-02-23 14:32 | Outpatient (BNVA) | payer MEDICARE, MEDICAID, SELFPAY | PROVIDERS: PCP Internal Medicine; Visit Provider Psychiatry & Neurology Neurology | DX: M79.671 Pain in right foot (principal); M79.672 Pain in left foot; G62.9 Polyneuropathy, unspecified | CPT/HCPCS: 99202 ==

== ENCOUNTER 2024-03-02 12:56 | Outpatient (AMB) | payer MEDICARE, MEDICAID, SELFPAY ==
[2024-03-02 13:01] VITALS: BP 102/72; BMI 21.8
--- NOTE | 2024-03-02 13:01 | A.OFFVIS_ITS ---
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 He has been suffering with this pain for approximately 2 years, states it is progressively getting worse Started in his feet and is now up into his lower legs He was told this is related to years of alcohol use. He quit drinking 10 months ago and currently lives in a sober residents. Pain today rated as a 10/10, constant worse throughout the day and in the evenings. Pain is worse with activity, light touch and heat. He reports unbearable with standing or walking. He is currently taking gabapentin and duloxetine. He states neither of these provide him any relief. In terms of muscle damage condition is described as shooting, dull, burning, aching, pins and needles. Pain is negatively impacting patient's enjoyment of life, general activity, mood, recreational activities, sleep and walking Last ETOH use 06/03/2023. Denies current illicit substance use. Denies marijuana use. Currently half a pack per day Resides in sober living. Denies implantable devices, pacemaker or defibrillator Denies current use of anticoagulants [facility] Medical History (Updated 02/23/24 @ 15:25 by Sunshine Berumen MD) Neuropathy Foot pain, bilateral Smoker Mixed hyperlipidemia Acquired hypothyroidism Essential hypertension Alcohol use disorder, severe, dependence Polysubstance use disorder Schizoaffective disorder Opiate dependence Colitis Chronic diarrhea Heavy tobacco smoker GERD (gastroesophageal reflux disease) History of colitis Surgical History History of back surgery No pertinent past surgical history Family History Mother Alzheimer disease Multiple sclerosis Other Mental health disorder Social History (Updated 03/02/24 @ 13:05 by SAI Pappas) Household Members: None Housing: Other Housing Other:: hotel Do you presently have visiting nurse or other home services: No Alcohol intake: never Comment: 1:1 sitter Patient Tobacco Use Status: Current everyday Tobacco user Tobacco use type: Cigarette Cigarette Packs Per Day: 0.5 Cigarettes Per Day: 20.0 Years Smoked: 30 e-Cigarette/Vaping Use: Never Used Second Hand Smoke Exposure: Yes Substance Use Type: Marijuana service: No Current occupational status: disabled Sexual orientation: Straight/Heterosexual Cognitive needs: No Hearing needs: No Vision needs: No Review of Systems Const All systems reviewed & are unremarkable except as noted in HPI and below Physical Exam Vital Signs: Last Vital Signs BP 102/72 03/02/24 13:01 BMI result Body Mass Index 21.8 General: awake, alert, oriented. Answers questions appropriately. Fully engaged in examination. Skin: warm, dry, intact. Feet: no wounds, rashes or breaks in skin noted. Light touch sensation intact bilaterally. HEENT: Normocephalic. Hearing intact. Cardiac: External chest normal in appearance. Respiratory: No cough, audible wheezing or stridor. Abdomen: without gross distension. MS: No obvious swelling or deformities. Able to stand on bilateral tiptoes and bilateral heels.? Able to transition from sit to stand unassisted. Ambulates with bilaterally normal heel strike and toe off Neurological: Oriented to person, place, time and situation. Thought process intact. No gait abnormalities appreciated. Psychiatric: Appropriate mood and affect. Good judgment and insight. Assessment & Plan Assessment & Plan (1) Neuropathy: Comment: alcoholism , nutritional deficiency Code(s): G62.9 - Polyneuropathy, unspecified Category: Medical Plan Edgardo presented to the office today for evaluation management of his painful bilateral peripheral neuropathy. Discussed options for treatment including topical treatment, diagnostic interventional testing, epidural steroid injections, peripheral nerve stimulation with Sprint, RFA and more permanent neuromodulation. Informational pamphlets provided. Will submit PA for Qutenza topical application. Patient advised on procedure including preparation and EMLA application prior to appointment. He is aware treatment is done in office and he will be here for 30minutes during each visit. Also discussed option for Nevro SCS trial/implant. He is interested in proceeding with SCS trial if he does not find relief with ketones. Aware that this would require mental health evaluation 1st and would like to have referral submitted for mental health clearance with [facility]. Patient is advised that they will contact him to schedule. All questions and concerns have been answered and patient agrees with the plan. Patient aware he will be called to schedule appointment for [place] pending insurance approval. Coding Level of Care Code New Pt Level 4 (22408) Diagnoses Neuropathy G62.9
== END 2024-03-02 13:39 | disposition home or self-care (01) ==
PROVIDERS: PCP Internal Medicine; Referring Provider Psychiatry & Neurology Neurology; Visit Provider Registered Nurse Emergency
DX: G62.9 Polyneuropathy, unspecified (principal)
CPT/HCPCS: 99204

== ENCOUNTER → 2024-03-02 12:56 | Outpatient (BNVA) | payer MEDICARE, MEDICAID, SELFPAY | PROVIDERS: PCP Internal Medicine; Referring Provider Psychiatry & Neurology Neurology; Visit Provider Registered Nurse Emergency | DX: G62.9 Polyneuropathy, unspecified (principal) | CPT/HCPCS: 99202 ==

== ENCOUNTER 2024-03-10 11:16 | Emergency (ER) | payer MEDICARE, MEDICAID, SELFPAY ==
--- NOTE | ~2024-03-10 | XR_ITS ---
EXAMINATION: XR FOOT, RIGHT CLINICAL INFORMATION: Pain. COMPARISON: None available. TECHNIQUE: Three views of the right foot. FINDINGS: The bones and soft tissues are normal. No fracture. Alignment is anatomic. Joint spaces are maintained. XR/XR foot RT min 3V IMPRESSION: Normal right foot.
--- NOTE | ~2024-03-10 | CT_ITS ---
EXAMINATION: CT HEAD WITHOUT CONTRAST CT CERVICAL SPINE WITHOUT CONTRAST CLINICAL INFORMATION: Syncope and head strike. COMPARISON: Head CT dated 04/14/2023. TECHNIQUE: Contiguous axial imaging was performed from the skullbase to vertex without intravenous administration of contrast. Multidetector helical imaging was performed through the cervical spine. This CT examination was performed using dose optimization techniques as appropriate, variously including the following: *Automated exposure control *Adjustment of mA and/or kV according to patient size (this includes techniques or standardized protocols for targeted exams where dose is matched to indication/reason for exam; i.e. extremities or head) *Use of iterative reconstruction technique DLP: 628, 326 mGy-cm. FINDINGS: HEAD: There is no evidence of acute intracranial hemorrhage or territorial infarction. No abnormal mass effect or midline shift is seen. Griffin to white matter differentiation is well preserved. No extra-axial fluid collections are identified. Stable generalized brain parenchymal volume loss with commensurate ex vacuo prominence of the ventricles. Very mild chronic white matter microangiopathy. The osseous structures and soft tissues are normal. The mastoid air cells and visualized portions of the paranasal sinuses are well aerated. CERVICAL SPINE: No acute fracture or dislocation is identified in the cervical spine. There is severe disc space narrowing with a shallow disc-osteophyte complex at the C5-C6 level. The atlantoaxial articulation is normally maintained. Generalized bony demineralization evident. The paraspinal soft tissues are normal. The lung apices are clear with emphysematous changes and subpleural scarring. CT/CT cervical spine wo IV con IMPRESSION: 1. No acute intracranial pathology. 2. No evidence of acute cervical spine traumatic injury.
--- NOTE | 2024-03-10 11:28 | ED.GENADULT ---
HPI - General Adult General Chief complaint: Dizziness Stated complaint: dizzy r foot pain Time Seen by Provider: 03/10/24 23:53 Source: patient Mode of arrival: ambulatory Limitations: no limitations History of Present Illness ED Provider: WILL PALMA PA-C HPI narrative: 58-year-old male with past medical history significant for schizoaffective disorder, polysubstance use disorder, alcohol use disorder (9 months sober), neuropathy, hypertension, HDL, hypothyroidism, GERD, colitis, active smoker presents to the ED today for evaluation of dizziness x1 week. Patient reports symptoms began soon after starting duloxetine. Reports discontinuing this medication due to worsening dizziness. He describes this dizziness as feeling light headed. Reports having 3 syncopal episodes on Thursday back to . Denies head strike. During 1 of the falls, he reports striking his right pinky toe on his dresser. Since this time endorses pain and bruising to the pinky toe. Denies headache, neck or back pain, rashes, chest pain, palpitations, SOB, hemoptysis, LE swelling, calf pain. Denies recent travel or long car rides. Denies history of hypotension however does endorse history of hypertension. Reports self discontinuing his blood pressure medications 3 days ago as he was curious if this was causing his dizziness. Symptoms have not improved since discontinuing his medications. Related Data Home Medications ?Medication ?Instructions ?Recorded ?Confirmed melatonin 5 mg capsule 5 mg PO BEDTIME 08/28/23 02/23/24 pantoprazole 40 mg tablet,delayed 40 mg PO DAILY 01/15/24 02/23/24 release Previous Rx's ?Medication ?Instructions ?Recorded bupropion HCl 75 mg tablet 75 mg PO BID #28 tabs 04/21/23 ferrous sulfate 324 mg (65 mg 324 mg PO DAILY #30 tabs 04/21/23 iron) tablet,delayed release folic acid 1 mg tablet 1 mg PO DAILY #30 tabs 04/21/23 multivitamin (Daily-Jamin tablet) 1 tab PO DAILY #30 tabs 04/21/23 naloxone 4 mg/actuation nasal 4 mg intranasal Q2M PRN opioid 05/11/23 spray (Narcan) overdose #2 ea buspirone 15 mg tablet 15 mg PO TID 30 days #90 tabs 10/16/23 amlodipine 5 mg tablet 5 mg PO DAILY 30 days #90 tabs 11/29/23 atorvastatin 20 mg tablet 20 mg PO BEDTIME #90 tabs 11/29/23 levothyroxine 25 mcg capsule 25 mcg PO DAILY 30 days #90 caps 11/29/23 metoprolol succinate 25 mg 25 mg PO DAILY 30 days #90 tabs 11/29/23 tablet,extended release 24 hr albuterol sulfate 90 mcg/actuation 2 puff inhalation Q6H PRN 12/25/23 aerosol inhaler shortness of breath or wheezing #8.5 grams chlorpromazine 200 mg tablet 200 mg PO QPM 30 days #30 tabs 01/13/24 clonidine HCl 0.2 mg tablet 0.2 mg PO BID 30 days #60 tabs 01/13/24 acetaminophen 500 mg capsule 500 mg PO QID PRN pain 10 days #30 01/15/24 caps cyanocobalamin (vitamin B-12) 1,000 mcg PO DAILY 90 days #90 tabs 01/15/24 1,000 mcg tablet tamsulosin 0.4 mg capsule 0.4 mg PO BEDTIME 90 days #90 caps 01/15/24 thiamine mononitrate (vit B1) 100 100 mg PO DAILY 90 days #90 tabs 01/15/24 mg tablet hydroxyzine pamoate 100 mg capsule 100 mg PO Q8H PRN anxiety 30 days 01/29/24 #90 caps triamcinolone acetonide 0.5 % 1 appl topical BID #15 grams 02/03/24 topical cream levofloxacin 500 mg tablet 500 mg PO DAILY #7 tabs 02/17/24 metronidazole 500 mg tablet 500 mg PO BID #14 tabs 02/17/24 ondansetron 4 mg disintegrating 4 mg PO Q8H PRN nausea and 02/17/24 tablet vomiting #7 tabs hydroxyzine HCl 50 mg tablet 100 mg (2 x 50 mg) PO TID anxiety 02/22/24 30 days #180 tabs duloxetine 20 mg capsule,delayed 20 mg PO BID #60 caps 02/23/24 release gabapentin 600 mg tablet 600 mg PO TID #90 tabs 03/10/24 Allergies Allergy/AdvReac Type Severity Reaction Status Date / Time aspirin [ASA] Allergy Unknown FACIAL Verified 03/10/24 11:31 SWELLING Penicillins [PENICILLINS] Allergy Unknown HIVES Verified 03/10/24 11:31 trazodone Allergy Anaphylaxis Verified 03/10/24 11:31 tramadol [TRAMADOL] AdvReac Unknown NAUSEA & Verified 03/10/24 11:31 VOMITING Review of Systems Review of Systems: Constitutional: No fever, chills, fatigue, night sweats, weight changes ENT/Mouth: No ear pain, hearing loss, nasal congestion, sinus pain, rhinorrhea, sore throat Eyes: No eye pain, swelling, redness, vision changes, discharge Cardio: No chest pain, palpitations, QUINONES, orthopnea, peripheral edema Pulm: No SOB, cough, sputum, wheezing, dyspnea, hemoptysis GI: No nausea, vomiting, hematemesis, abdominal pain, diarrhea, constipation, hematochezia, melena : No irregular bleeding, dysuria, frequency, urgency, hesitancy, hematuria, flank pain, urinary flow changes, urinary incontinence or retention MSK: No back pain, neck pain, joint pain, myalgias, +toe pain Skin: No lesions, rashes Neuro: No weakness, numbness, paresthesias, LOC, headache, +dizziness Psych: No anxiety/panic, depression, SI/HI, AH/VH All other systems reviewed and are negative. [facility] Past Medical History Attestation statement: The following information was validated with the patient. Source: old records reviewed and nursing notes reviewed Medical History Neuropathy Foot pain, bilateral Smoker Mixed hyperlipidemia Acquired hypothyroidism Essential hypertension Alcohol use disorder, severe, dependence Polysubstance use disorder Schizoaffective disorder Opiate dependence Colitis Chronic diarrhea Heavy tobacco smoker GERD (gastroesophageal reflux disease) History of colitis Surgical History History of back surgery No pertinent past surgical history Family History Family History Mother Alzheimer disease Multiple sclerosis Other Mental health disorder Social History Social History Household Members: None Housing: Other Housing Other:: hotel Do you presently have visiting nurse or other home services: No Alcohol intake: former Comment: 1:1 sitter Patient Tobacco Use Status: Current everyday Tobacco user Tobacco use type: Cigarette Cigarette Packs Per Day: 0.5 Cigarettes Per Day: 20.0 Years Smoked: 30 Smoked in Last 30 Days: Yes e-Cigarette/Vaping Use: Never Used Second Hand Smoke Exposure: Yes Use of substances other than those prescribed or required for medical reasons: No Substance Use Type: Marijuana Advance Directives: No Advance Directives Information Provided: Yes service: No Current occupational status: disabled Sexual orientation: Straight/Heterosexual Cognitive needs: No Hearing needs: No Vision needs: No Physical Exam ED Vital Signs: Vital Signs - 24 hr 03/10/24 18:57 03/10/24 22:20 03/11/24 00:10 Temperature 97.2 F 97.7 F Pulse Rate 67 69 68 Respiratory Rate 16 16 Blood Pressure 117/83 120/88 124/89 Pulse Oximetry 95 94 Oxygen Delivery Method Room Air Room Air 03/11/24 00:13 03/11/24 02:00 03/11/24 04:21 Temperature 97.5 F 97.7 F Pulse Rate 87 66 71 Respiratory Rate 12 12 Blood Pressure 96/75 134/82 135/90 H Pulse Oximetry 93 95 Oxygen Delivery Method Room Air Room Air 03/11/24 05:08 Temperature 97.7 F Pulse Rate 71 Respiratory Rate 12 Blood Pressure 135/90 H Pulse Oximetry 95 Oxygen Delivery Method Room Air BMI result Body Mass Index 21.3 vital signs stable. Const General: cooperative, healthy appearing, comfortable and no acute distress Orientation/consciousness: patient oriented x3 Limitations: no limitations HENMT Head: Yes normal to inspection, Yes No palpable skull fracture present, Yes normocephalic and Yes atraumatic Eyes General: appearance normal, both eyes and all related structures Pupils: Equal, round and reactive pupils present EOM: EOMs intact bilaterally Direct Ophthalmoscopy: no photophobia Neck Neck: Yes normal visual inspection, Yes full ROM, Yes no lymphadenopathy and Yes no meningeal signs Resp Effort & Inspection: normal respiratory effort and able to speak in complete sentences Auscultation: clear to auscultation bilaterally Cardio Rate: regular rate Rhythm: regular rhythm GI Inspection: Yes normal to inspection Palpation (GI): Soft to palpation and nontender General: Yes no CVA tenderness Back/Spine/Pelvis Back: no CVA tenderness Skin General skin exam: no rashes or lesions noted Neuro General: patient oriented x3, gait normal, tone normal and no meningeal signs Cranial nerves: Yes Equal, round and reactive pupils present Coordination: [id number] test normal, [id number] test normal and Normal rapid alternating movements of the distal upper extremity present (Neuro) Pupils: Normal pupillary reactivity/response: bilateral Extrem Other: + noted ecchymosis to right 5th toe. no deformity. ttp. Course Course Course Narrative: This is an RME: Additional HPI, ROS, PE not included below will be deferred to primary provider. RME assessment and note performed by: Lakesha Hutchison PA-C This is a [id number]-male, with a hx of schizoaffective disorder, polysubstance use disorder, alcohol use disorder, HTN, HLD, hypothyroidism, GERD, colitis, active smoker who presents to the ER with complaints of constant dizziness x 1 week. Was recently put on duloxetine however noticed that he had worsening dizziness. He states that he had 3 syncopal episodes on Thursday. He states that he did hit his head. He is unsure how long he lost consciousness for. States that the dizziness worsens with positional changes. No focal deficits on examination. No chest pain or shortness for breath. Plan: Labs, EKG, CT head/cervical Reevaluation(s) Reevaluation #1: 0018-- CBC without leukocytosis or left shift. No anemia. H&H stable. Chemistry without acute electrolyte abnormality requiring intervention. JEWEL with BUN 43 and creatinine 2.38 > 2 L IV fluids ordered. Plan to repeat BMP. Normal liver function. Troponin flat. EKG showing normal sinus rhythm with a rate of 75 beats per minute, QT 426, QTC 475, no acute ischemic changes or ST elevations. Ethanol undetectable. Patient has tested negative for COVID, flu, RSV. CT head/brain without bleed. CT cervical spine without fracture. X-ray right foot without fracture. > tylenol ordered for pain control. > I discussed JEWEL with patient. He tells me he dislikes water and refuses to drink it. He has been trying to consume more gatorade. he is agreeable with IV fluids. > orthostatic vitals ordered to r/o orthostatic hypotension > meclizine ordered for dizziness. will re-evaluate. 0148-- Orthostatic vitals positive. Patient receiving 2L IVF. will recheck vitals and bmp once fluids are complete. > I did discuss this with the patient and he is agreeable to this. He tells me his pain is not well controlled with tylenol. after discussion with patient, one time dose of oxycodone ordered. > sign out given to my attending, Dr. Balderas pending repeat labs, bp, and disposition. Medications Administered Discontinued Medications Generic Name Dose Route Start Last Admin Trade Name Arias PRN Reason Stop Dose Admin Acetaminophen 975 mg 03/11/24 00:07 03/11/24 01:12 Acetaminophen 325 Mg Tablet PO 03/11/24 00:08 975 mg ONCE ONE Administration Sodium Chloride 1,000 mls @ 999 mls/hr 03/10/24 23:45 03/11/24 01:12 Ns IV 03/11/24 00:45 999 mls/hr .Q1H1M CALVIN Administration Sodium Chloride 1,000 mls @ 999 mls/hr 03/10/24 23:45 03/11/24 01:12 Ns IV 03/11/24 00:45 999 mls/hr .Q1H1M CALVIN Administration Meclizine HCl 25 mg 03/11/24 00:07 03/11/24 01:11 Meclizine Hcl 25 Mg Tablet PO 03/11/24 00:08 25 mg ONCE ONE Administration Oxycodone HCl 5 mg 03/11/24 01:45 03/11/24 04:12 Oxycodone Hcl Immed Release 5 Mg Tablet PO 03/11/24 01:46 5 mg ONCE ONE Administration Medical Decision Making Medical Decision Making MDM Narrative: 58-year-old male with past medical history significant for schizoaffective disorder, polysubstance use disorder, alcohol use disorder (9 months sober), neuropathy, hypertension, HDL, hypothyroidism, GERD, colitis, active smoker presents to the ED today for evaluation of dizziness x1 week. PERRLA. Cerebellum intact. Exam nonfocal. no nystagmus. noted ecchymosis to right 5th toe. no deformity. ttp. Differential diagnosis includes vertigo, dehydration, anemia, electrolyte abnormality, orthostatic hypotension. Suspicion for toe fracture, contusion. Unlikely brain mass, ICH, CVA/TIA, cerebellar stroke, meningitis, encephalitis. Plan for labs, ekg, CT head/brain/c spine, XR right foot, ortho vitals, IVF, pain control, and re-evaluation. Differential Diagnosis Differential Diagnoses: The differential diagnosis associated with the presentation includes as above. Admission/Observation Consideration of admission/observation: Escalation of care including admission/observation considered Admission concidered Lab Data MDM Lab Attestation statement: I reviewed the patient's lab results. as above. 03/10/24 11:58 03/11/24 03:46 Labs: Lab Results 03/10/24 03/10/24 03/11/24 Range/Units 11:57 11:58 03:46 WBC 7.8 (4.8-10.8) X10*3/uL RBC 5.29 (4.60-5.80) X10*6/uL Hgb 14.0 (14.0-18.0) g/dl Hct 43.4 (42.0-52.0) % MCV 82.0 (80.0-98.0) fL MCH 26.5 L (27.0-33.0) pg MCHC 32.3 (31.0-36.0) g/dl RDW 13.9 (11.0-16.0) % Plt Count 179 (160-400) X10*3/uL MPV 9.0 L (9.4-12.4) fL Immature Gran % (Auto) 0.3 (0.0-0.4) % Neut % (Auto) 75.8 H (45-73) % Lymph % (Auto) 12.9 L (20-40) % [place] % (Auto) 6.8 (2-11) % Eos % (Auto) 3.6 (0-4) % Baso % (Auto) 0.6 (0-2) % Lymph # (Auto) 1.0 L (1.2-4.9) X10*3/uL [place] # (Auto) 0.5 (0.1-1.2) X10*3/uL Eos # (Auto) 0.3 (0.0-0.4) X10*3/uL Baso # (Auto) 0.1 (0.0-0.2) X10*3/uL Abs Immat Gran (auto) 0.02 (0.00-0.03) X10*3/uL Absolute Neuts (auto) 5.9 (2.0-8.3) x10*3/uL Absolute Nucleated RBC 0.000 (0.0-0.012) X10*3/uL Nucleated RBC % (auto) 0.0 (0.0-0.2) /100WBC PT 11.0 L (11.1-13.3) SEC INR 0.9 (0.9-1.1) APTT 24.6 L (26.0-36.8) SEC Sodium 141 143 (135-145) mmol/L Potassium 4.3 3.7 (3.3-5.1) mmol/L Chloride 103 108 (96-108) mmol/L Carbon Dioxide 25 25 (22-29) mmol/L Anion Gap 17 14 (12-20) BUN 43 H 33 H (9-16) mg/dL Creatinine 2.38 H 1.37 (0.5-1.4) mg/dL Estim Creat Clear Calc 35.5 61.6 Estimated GFR 28 54 Random Glucose 107 107 (60-115) mg/dL Calcium 9.9 9.1 D (8.4-10.2) mg/dL Magnesium 2.0 (1.6-2.6) mg/dL Total Bilirubin 0.6 (0.0-1.0) mg/dL Direct Bilirubin 0.3 (0.0-0.5) mg/dL AST 21 (5-37) U/L ALT 18 (0-40) U/L Alkaline Phosphatase 109 (39-117) U/L Troponin I High Sens < 2.7 (<3.5-35.0) ng/L Total Protein 7.3 (6.5-8.0) g/dL Albumin 4.3 (3.5-5.0) g/dL Urine Color Yellow Urine Appearance Clear Urine pH 5.5 (5.0-9.0) Ur Specific [place] 1.025 (1.005-1.025) Urine Protein Trace (Neg-Trace) mg/dL Urine Glucose (UA) Negative (Negative) mg/dL Urine Ketones Negative (Negative) mg/dL Urine Blood Negative (Negative) Urine Nitrite Negative (Negative) Ur Leukocyte Esterase Negative (Negative) Urine Opiates Screen Not Detected (Not Detect) Ur Buprenorphine Scrn Not Detected (Not Detect) ng/mL Ur Oxycodone Screen Not Detected (Not Detect) ng/mL Urine Methadone Screen Not Detected (Not Detect) ng/mL Urine Fentanyl Screen Not Detected (Not Detect) Ur Barbiturates Screen Not Detected (Not Detect) Ur Phencyclidine Scrn POSITIVE H (Not Detect) Ur Amphetamines Screen Not Detected (Not Detect) U Benzodiazepines Scrn Not Detected (Not Detect) Urine Cocaine Screen Not Detected (Not Detect) U Marijuana (THC) Screen Not Detected (Not Detect) Ethyl Alcohol < 10 mg/dL Influenza Type A (PCR) NEGATIVE (Negative) Influenza Type B (PCR) NEGATIVE (Negative) RSV RNA Qual (PCR) NEGATIVE (Negative) SARS-CoV-2 RNA (RT-PCR) NEGATIVE (Negative) Independent Interpretation I performed an independent interpretation of an: Plain X-Ray and CT Scan Interpretation: CT head/brain without mass or bleed, agree with radiologist's interpretation. CT c spine without fracture, agree with radiologist's interpretation. XR right foot without fracture, agree with radiologist's interpretation. Radiology Impression Discussion of test interpretation with radiology: I have reviewed the radiologist's reading. Radiologist Impression: EXAMINATION: CT HEAD WITHOUT CONTRAST CT CERVICAL SPINE WITHOUT CONTRAST CLINICAL INFORMATION: Syncope and head strike. COMPARISON: Head CT dated 04/14/2023. TECHNIQUE: Contiguous axial imaging was performed from the skullbase to vertex without intravenous administration of contrast. Multidetector helical imaging was performed through the cervical spine. This CT examination was performed using dose optimization techniques as appropriate, variously including the following: *Automated exposure control *Adjustment of mA and/or kV according to patient size (this includes techniques or standardized protocols for targeted exams where dose is matched to indication/reason for exam; i.e. extremities or head) *Use of iterative reconstruction technique DLP: 628, 326 mGy-cm. FINDINGS: HEAD: There is no evidence of acute intracranial hemorrhage or territorial infarction. No abnormal mass effect or midline shift is seen. Griffin to white matter differentiation is well preserved. No extra-axial fluid collections are identified. Stable generalized brain parenchymal volume loss with commensurate ex vacuo prominence of the ventricles. Very mild chronic white matter microangiopathy. The osseous structures and soft tissues are normal. The mastoid air cells and visualized portions of the paranasal sinuses are well aerated. CERVICAL SPINE: No acute fracture or dislocation is identified in the cervical spine. There is severe disc space narrowing with a shallow disc-osteophyte complex at the C5-C6 level. The atlantoaxial articulation is normally maintained. Generalized bony demineralization evident. The paraspinal soft tissues are normal. The lung apices are clear with emphysematous changes and subpleural scarring. CT/CT head/brain wo IV con IMPRESSION: 1. No acute intracranial pathology. 2. No evidence of acute cervical spine traumatic injury. EXAMINATION: XR FOOT, RIGHT CLINICAL INFORMATION: Pain. COMPARISON: None available. TECHNIQUE: Three views of the right foot. FINDINGS: The bones and soft tissues are normal. No fracture. Alignment is anatomic. Joint spaces are maintained. XR/XR foot RT min 3V IMPRESSION: Normal right foot. External Record Review External record reviewed: Inpatient record, Office record, Outpatient record, Prior outpatient labs, Prior outpatient radiology, Primary care record and Outside ED record Chronic Conditions Patient?s care impacted by: Hypertension Social Determinants Patient?s care significantly limited by Social Determinants of Health including: Other Social Determinant of Health Critical Care Time Critical Care Time Critical Care Time: No Discharge Plan Discharge Clinical Impression: JEWEL (acute kidney injury), Orthostatic hypotension Patient Disposition: Home, Self-Care Instructions: Acute Kidney Injury (DC) Additional Instructions: Drink plenty of fluids Follow with PCP Prescriptions: No Action buspirone 15 mg tablet 15 mg PO TID 30 Days Qty: 90 1RF atorvastatin 20 mg tablet 20 mg PO BEDTIME Qty: 90 1RF amlodipine 5 mg tablet 5 mg PO DAILY 30 Days Qty: 90 1RF metoprolol succinate 25 mg tablet extended release 24 hr 25 mg PO DAILY 30 Days Qty: 90 1RF levothyroxine 25 mcg capsule 25 mcg PO DAILY 30 Days Qty: 90 1RF albuterol sulfate 90 mcg/actuation HFA aerosol inhaler 2 puff inhalation Q6H PRN (Reason: shortness of breath or wheezing) Qty: 8.5 1RF chlorpromazine 200 mg tablet 200 mg PO QPM 30 Days Qty: 30 1RF clonidine HCl 0.2 mg tablet 0.2 mg PO BID 30 Days Qty: 60 1RF hydroxyzine pamoate 100 mg capsule 100 mg PO Q8H PRN (Reason: anxiety) 30 Days Qty: 90 0RF triamcinolone acetonide 0.5 % cream 1 appl topical BID Qty: 15 3RF hydroxyzine HCl 50 mg tablet 100 mg PO TID 30 Days Qty: 180 0RF gabapentin 600 mg tablet 600 mg PO TID Qty: 90 0RF ferrous sulfate 324 mg (65 mg iron) Tablet,Delayed Release (Dr/Ec) 324 mg PO DAILY Qty: 30 0RF folic acid 1 mg Tablet 1 mg PO DAILY Qty: 30 0RF multivitamin [Daily-Jamin] Tablet 1 tab PO DAILY Qty: 30 0RF bupropion HCl 75 mg tablet 75 mg PO BID Qty: 28 1RF levofloxacin 500 mg tablet 500 mg PO DAILY Qty: 7 0RF metronidazole 500 mg tablet 500 mg PO BID Qty: 14 0RF ondansetron 4 mg tablet,disintegrating 4 mg PO Q8H PRN (Reason: nausea and vomiting) Qty: 7 0RF naloxone [Narcan] 4 mg/actuation spray,non-aerosol 4 mg intranasal Q2M PRN (Reason: opioid overdose) Qty: 2 0RF Rx Instructions: spray 1 dose into ONE nostril; alternate nostrils w each dose until help arrives melatonin 5 mg capsule 5 mg PO BEDTIME pantoprazole 40 mg tablet,delayed release (DR/EC) 40 mg PO DAILY cyanocobalamin (vitamin B-12) 1,000 mcg tablet 1,000 mcg PO DAILY 90 Days Qty: 90 1RF thiamine mononitrate (vit B1) 100 mg tablet 100 mg PO DAILY 90 Days Qty: 90 1RF tamsulosin 0.4 mg capsule 0.4 mg PO BEDTIME 90 Days Qty: 90 1RF acetaminophen 500 mg capsule 500 mg PO QID MDD 4 tablets a day PRN (Reason: pain) 10 Days Qty: 30 0RF Rx Instructions: DO NOT TAKE MORE THAN 4 TABLETS IN A DAY duloxetine 20 mg capsule,delayed release(DR/EC) 20 mg PO BID Qty: 60 6RF Interventions: ED Discharge Assessment Last Done: 03/11/24 05:08 Discharge Date/Time: 03/11/24 05:09 Print Language: French
[2024-03-10 11:29] VITALS: BP 101/66; PULSE 84; RESP 16; TEMP 36.6; O2SAT 94; BMI 21.3
[2024-03-10 11:35] VITALS: BP 114/82; PULSE 67; PULSE 69; RESP 14; TEMP 36.5; O2SAT 92
--- NOTE | 2024-03-10 11:35 | ECG_ITS ---
Test Reason : DIZZINESS Blood Pressure : / mmHG Vent. Rate : 075 BPM Atrial Rate : 075 BPM P-R Int : 172 ms QRS Dur : 094 ms QT Int : 426 ms P-R-T Axes : 043 -42 072 degrees QTc Int : 475 ms Normal sinus rhythm Left axis deviation Incomplete right bundle branch block Nonspecific T wave abnormality Abnormal ECG When compared with ECG of 17-FEB-2024 11:31, Nonspecific T wave abnormality no longer evident in Inferior leads Referred By: Lakesha Hutchison Electronically Signed By:JOS DUMONT MD
[2024-03-10 12:05] LABS: MANUAL DIFF FLAG NO
[2024-03-10 12:07] LABS: Basophils Absolute Auto 0.1 X10*3/uL (0.0-0.2); Basophils Percent Auto 0.6 % (0-2); Eosinophils Absolute Auto 0.3 X10*3/uL (0.0-0.4); Eosinophils Percent Auto 3.6 % (0-4); Hematocrit 43.4 % (42.0-52.0); Imm Gran Abs Auto 0.02 X10*3/uL (0.00-0.03); Imm Gran Pct Auto 0.3 % (0.0-0.4); Lymphocytes Percent Auto 12.9 % (20-40); Mean Corpuscular HGB Conc 32.3 g/dl (31.0-36.0); Mean Corpuscular Hemoglobin 26.5 pg (27.0-33.0); Monocytes Absolute Auto 0.5 X10*3/uL (0.1-1.2); Monocytes Percent Auto 6.8 % (2-11); Neutrophils Absolute Auto 5.9 x10*3/uL (2.0-8.3); Neutrophils Percent Auto 75.8 % (45-73); Platelet Count 179 X10*3/uL (160-400); Red Blood Count 5.29 X10*6/uL (4.60-5.80); Red Cell Distribution Width 13.9 % (11.0-16.0); White Blood Count 7.8 X10*3/uL (4.8-10.8)
[2024-03-10 12:13] LABS: INTERNATIONAL NORM RATIO 0.9 (0.9-1.1)
[2024-03-10 12:16] LABS: Partial Thromboplastin Time 24.6 SEC (26.0-36.8)
[2024-03-10 12:21] LABS: Ethanol < 10 mg/dL
[2024-03-10 12:22] LABS: Alanine Aminotransferase 18 U/L (0-40); Albumin Level 4.3 g/dL (3.5-5.0); Alkaline Phosphatase 109 U/L (39-117); Anion Gap 17 (12-20); Aspartate Amino Transferase 21 U/L (5-37); Bilirubin Direct 0.3 mg/dL (0.0-0.5); Bilirubin Total 0.6 mg/dL (0.0-1.0); Blood Urea Nitrogen 43 mg/dL (9-16); Calcium 9.9 mg/dL (8.4-10.2); Carbon Dioxide 25 mmol/L (22-29); Chloride 103 mmol/L (96-108); Creatinine Clr Calc Pharmacy 35.5; Estimated Glomerular Filt Rate 28; Glucose Random 107 mg/dL (60-115); Potassium 4.3 mmol/L (3.3-5.1); Sodium 141 mmol/L (135-145); Total Protein 7.3 g/dL (6.5-8.0)
[2024-03-10 12:30] LABS: Troponin-I High Sensitivity < 2.7 ng/L (<3.5-35.0)
[2024-03-10 12:43] LABS: Influenza A PCR NEGATIVE (Negative); Influenza B PCR NEGATIVE (Negative); Resp Syncy Virus RNA Qual PCR NEGATIVE (Negative); SARS COV2 PCR INHOUSE NEGATIVE (Negative)
[2024-03-10 18:57] VITALS: BP 117/83; PULSE 67; RESP 16; TEMP 36.2; O2SAT 95
[2024-03-10 22:20] VITALS: BP 120/88; PULSE 69; RESP 16; TEMP 36.5; O2SAT 94
[2024-03-11 00:10] VITALS: BP 124/89; PULSE 68
[2024-03-11 00:13] VITALS: BP 96/75; PULSE 87
[2024-03-11] MEDS: Meclizine HCl 25 MG TABLET PO (01:11)
[2024-03-11] MEDS: 0.9 % Sodium Chloride 1,000 ML 999 ML IV ×2 (01:12)
[2024-03-11] MEDS: Acetaminophen 325 MG TABLET 975 MG PO (01:12)
[2024-03-11 02:00] VITALS: BP 134/82; PULSE 66; RESP 12; TEMP 36.4; O2SAT 93
[2024-03-11 03:54] LABS: Appearance Urine Clear; Color Urine Yellow; Glucose Urine UA Negative (Negative); Leukocyte Esterase Urine Negative (Negative); Nitrite Urine Negative (Negative); PH 5.5 (5.0-9.0); Specific Gravity - Urine 1.025 (1.005-1.025); Urine Blood Negative (Negative); Urine Ketones Negative (Negative); Urine Protein Trace mg/dL (Neg-Trace)
[2024-03-11 04:03] LABS: Amphetamine Screen Urine Not Detected (Not Detect); Barbiturates, Urine Not Detected (Not Detect); Benzodiazepines Screen Urine Not Detected (Not Detect); Buprenorphine Scr Not Detected (Not Detect); Cannabinoid Screen Urine Not Detected (Not Detect); Cocaine Screen Urine Not Detected (Not Detect); Fentanyl, urine Not Detected (Not Detect); Methadone Screen, Urine Not Detected (Not Detect); Opiate Screen Urine Not Detected (Not Detect); Oxycodone Screen Urine Not Detected (Not Detect); Phencyclidine Screen Urine POSITIVE (Not Detect)
[2024-03-11 04:06] LABS: Anion Gap 14 (12-20); Blood Urea Nitrogen 33 mg/dL (9-16); Calcium 9.1 mg/dL (8.4-10.2); Carbon Dioxide 25 mmol/L (22-29); Chloride 108 mmol/L (96-108); Creatinine Clr Calc Pharmacy 61.6; Estimated Glomerular Filt Rate 54; Glucose Random 107 mg/dL (60-115); Potassium 3.7 mmol/L (3.3-5.1); Sodium 143 mmol/L (135-145)
[2024-03-11] MEDS: oxyCODONE HCl Immed Release 5 MG TABLET PO (04:12)
[2024-03-11 04:21] VITALS: BP 135/90; PULSE 71; RESP 12; TEMP 36.5; O2SAT 95
[2024-03-11 05:08] VITALS: BP 135/90; PULSE 71; RESP 12; TEMP 36.5; O2SAT 95
== END 2024-03-11 05:09 | disposition home or self-care (01) ==
PROVIDERS: Physician Assistant Medical; Emergency Provider Emergency Medicine; PCP Internal Medicine
DX: N17.9 Acute kidney failure, unspecified (principal); I95.1 Orthostatic hypotension; R42 Dizziness and giddiness; I10 Essential (primary) hypertension; E78.5 Hyperlipidemia, unspecified; E78.2 Mixed hyperlipidemia; F17.210 Nicotine dependence, cigarettes, uncomplicated; F11.20 Opioid dependence, uncomplicated; Z79.02 Long term (current) use of antithrombotics/antiplatelets; Z79.899 Other long term (current) drug therapy; Z03.818 Encounter for observation for suspected exposure to other biological agents ruled out
CPT/HCPCS: 0241U; 36415; 70450; 72125; 73630; 80048; 80076; 80307; 81003; 83735; 84484; 85025; 85610; 85730; 93005; 99284; 99285

== ENCOUNTER → 2024-03-10 11:35 | Outpatient (BNV) | payer MEDICARE, MEDICAID, SELFPAY | PROVIDERS: PCP Internal Medicine; Visit Provider Internal Medicine Cardiovascular Disease | DX: R42 Dizziness and giddiness (principal) | CPT/HCPCS: 93010 ==

== ENCOUNTER 2024-03-24 12:13 | Outpatient (AMB) | payer MEDICARE, MEDICAID, SELFPAY ==
[2024-03-24 12:14] VITALS: BP 92/68; PULSE 89; O2SAT 93; BMI 20.7
--- NOTE | 2024-03-24 12:14 | MHC.PC.OV ---
Vital Signs 03/24/24 12:14 Height 6 ft 1 in Weight 157 lb 0.2 oz BMI 20.7 BP 92/68 Blood Pressure Location Lt brachial Position Sitting Pulse 89 Pulse Source Pulse Oximeter Pulse Oximetry (%) 93 Oxygen Delivery Method Room Air Intake [place] [facility] [place] Intake Note: Patient is here for hospital discharge follow up. Patient [place] [facility] [place] [facility] [place] Toll Line Repairer Required: No Allergies aspirin [ASA] Allergy (Unknown, Verified 03/24/24 12:59) FACIAL SWELLING Penicillins [PENICILLINS] Allergy (Unknown, Verified 03/24/24 12:59) HIVES trazodone Allergy (Verified 03/24/24 12:59) Anaphylaxis tramadol [TRAMADOL] Adverse Reaction (Unknown, Verified 03/24/24 12:59) NAUSEA & VOMITING Medication List - Last Reconciled 03/24/24 by Sergey Archer MD acetaminophen 500 mg PO QID PRN 10 days MDD 4 tablets a day albuterol sulfate 90 mcg/actuation 2 puffs inhalation Q6H PRN amlodipine 5 mg PO DAILY 30 days atorvastatin 20 mg PO BEDTIME bupropion HCl 75 mg PO BID buspirone 15 mg PO TID 30 days chlorpromazine 200 mg PO QPM 30 days clonidine HCl 0.2 mg PO BID 30 days cyanocobalamin (vitamin B-12) 1,000 mcg PO DAILY 90 days duloxetine 20 mg PO BID ferrous sulfate 324 mg PO DAILY folic acid 1 mg PO DAILY gabapentin 600 mg PO TID hydroxyzine HCl 100 mg (2 x 50 mg) PO TID 30 days hydroxyzine pamoate 100 mg PO Q8H PRN 30 days levothyroxine 25 mcg PO DAILY 30 days melatonin 5 mg PO BEDTIME metoprolol succinate ER 25 mg PO DAILY 30 days multivitamin (Daily-Jamin tablet) 1 tab PO DAILY naloxone 4 mg/actuation (Narcan) 4 mg intranasal Q2M PRN ondansetron 4 mg PO Q8H PRN pantoprazole 40 mg PO DAILY tamsulosin 0.4 mg PO BEDTIME 90 days thiamine mononitrate (vit B1) 100 mg PO DAILY 90 days triamcinolone acetonide 0.5% 1 appl topical BID Tobacco use date assessed: 01/15/24 Dental Screening Dental Screen Date: 01/15/24 [facility] - Dizziness HPI Details Patient comes in today for his HDF follow up visit He went to the [place] [facility] [place]10/[place] and then also to the ER at [facility] a week later on 03/16/2024 for similar complaints He reports experiencing recurrent dizziness and increasing weakness lately He was found to have low BP readings and was orthostatic on exam in the ER He admits that he has not been drinking much fluids lately as he cannot keep anything down although when asked about this, he denies any nausea or vomiting and he denies any diarrhea He's had extensive work ups done at the ER during both of the aforementioned visits, including labs, head and cervical spine CT, EKG and x-rays done, all of which showed no acute findings except for elevated serum creatinine and low GFR that responded to IV fluid hydration He had x-rays done at [facility] last week which showed (+) previous hardwares over his right ribs that he states were placed sometime around 2015 to 2017 by a surgeon at [facility] for right rib fractures He is pointing to his right rib area as the source of increased pain at present - states that he can hardly move at times due to the intense pain that moving triggers over his right rib areas and he is presently trying to get ahold of the doctor who did his surgery and get in to see him about possibly now removing the screws, which he believes is causing most of his pain He is requesting for a one-time Rx for some Oxycodone to help him with the pain until he can get in to see the surgeon about his rib screws He adds that he has been breaking out in sores and abscesses all over lately - over his arms, on his scalp, on his chest wall and over his abdominal wall - thinks it could be MRSA He denies any fever or headaches lately Denies any chest pains, no increased SOB No nausea/vomiting, no abdominal pain No change in bowel habits noted He was also seen by pain management last month and they have reportedly went over with him potential pain management options, including the use of Qutenza patch as well as possible SCS implant trial He was advised that he will need mental health clearance first, which patient now claims he was not aware of [facility] Medical History (Updated 03/24/24 @ 13:57 by Sergey Archer MD) Neuropathy Foot pain, bilateral Smoker Mixed hyperlipidemia Acquired hypothyroidism Essential hypertension Alcohol use disorder, severe, dependence Polysubstance use disorder Schizoaffective disorder Opiate dependence Colitis Chronic diarrhea Heavy tobacco smoker GERD (gastroesophageal reflux disease) History of colitis Surgical History (Updated 03/24/24 @ 13:48 by Sergey Archer MD) History of back surgery Family History Mother Alzheimer disease Multiple sclerosis Other Mental health disorder Social History Household Members: None Housing: Other Housing Other:: hotel Do you presently have visiting nurse or other home services: No Alcohol intake: former Comment: 1:1 sitter Patient Tobacco Use Status: Current everyday Tobacco user Tobacco use type: Cigarette Cigarette Packs Per Day: 0.5 Cigarettes Per Day: 20.0 Years Smoked: 30 e-Cigarette/Vaping Use: Never Used Second Hand Smoke Exposure: Yes Substance Use Type: Marijuana service: No Current occupational status: disabled Sexual orientation: Straight/Heterosexual Cognitive needs: No Hearing needs: No Vision needs: No Questionnaire Thrive Questionnaire Date Thrive assessed: 01/15/24 AUDIT C Alcohol Use Questionnaire (AUDIT-C) 1. How often do you have a drink containing alcohol?: Never 3. How often do you have six or more drinks on one occasion?: Never Total Score: 0 Score Reviewed/Action Taken: Yes ROSANNA-7 AMB Questionnaire ROSANNA-7 Date ROSANNA - 7 assessed: 01/15/24 Source: Developed by Drs. Joe Wright, Vandana Etienne, Chemo Brar and colleagues, with an educational frankie from [employer]. Review of Systems Const Denies chills, Reports fatigue, Denies fever(s) and Denies headache(s) ENT Denies dysphagia, Reports dizziness (recurrent lately), Denies otalgia, Denies headache(s), Denies neck pain, Denies odynophagia and Denies sore throat Card Denies chest pain, Denies palpitations and Denies dyspnea Resp Denies cough and Denies dyspnea GI Denies abdominal pain, Denies constipation, Denies dysphagia, Denies heartburn, Denies diarrhea, Denies nausea, Denies odynophagia and Denies vomiting Reports oliguria, Denies dysuria, Denies nocturia, Denies urinary frequency and Reports urinary hesitancy Musc Details: increased pain over his right ribs; chronic pain over both lower extremities Reports back pain (chronic) and Denies neck pain Skin/Breast Details: (+) multiple scattered abscesses / sores (see HPI) Reports as per HPI and Reports rash (recurrent scattered rash) Neuro Details: (+) recurrent burning pain on both feet Reports as per HPI, Reports burning sensations, Reports dizziness (recurrent lately), Denies headache(s) and Reports paresthesias Psych Reports anxiety (increased) and Reports depression Endo Reports fatigue and Denies palpitations Physical exam (Primary Care) Vital Signs: Last Vital Signs Pulse 89 03/24/24 12:14 BP 92/68 03/24/24 12:14 Pulse Ox 93 03/24/24 12:14 Oxygen Delivery Method Room Air 03/24/24 12:14 BMI result Body Mass Index 20.7 Tobacco/Smoking Status: Tobacco use Status Tobacco use date assessed 01/15/24 03/24/24 12:18 Patient Tobacco Use Status Current everyday Tobacco 03/24/24 12:18 Tobacco use type Cigarette 03/24/24 12:18 e-Cigarette/Vaping Use Never Used 03/24/24 12:18 Thrive Assessment: Date of Thrive Assessment Date Thrive assessed 01/15/24 03/24/24 12:18 Const General: no acute distress and alert HENMT Ears: TM's normal bilaterally and EAC's normal Throat: Yes posterior oropharynx normal and Yes tonsils normal (no TP congestion) Neck Neck: Yes no lymphadenopathy and Yes supple Thyroid: Thyroid normal Chest Other: (+) tenderness over the entire right anterolateral side of the rib cage Resp Auscultation: clear to auscultation bilaterally, no rales and no wheezes Cardio Rate: regular rate Rhythm: regular rhythm Heart sounds: no murmurs GI Palpation (GI): Soft to palpation and nontender Auscultation: normal bowel sounds General: Yes no CVA tenderness Back/Spine/Pelvis Back: no CVA tenderness Skin Other: (+) multiple abscesses / pustular lesions scattered all over - on the forearms , over the scalp and on the abdominal wall and chest wall Extrem General: Yes no clubbing, cyanosis or edema Assessment and Plan Assessment & Plan (1) Dizziness: Code(s): R42 - Dizziness and giddiness Plan: Have advised patient that his blood pressure is again low in the office today (92/68) and is likely due to hypovolemia secondary to inadequate oral fluid intake, as he admits that he still does not (cannot) drink too much He denies any nausea, vomiting or diarrhea so I think it is just he is not used to or cannot get himself to drink more than a few sips of fluids at a time As he continues to complain of frequent dizziness aggravated by activity, will have him HOLD his Amlodipine for now Per request, will also send in Rx for Meclizine 25 mg TID PRN although have advised patient that this may not work as well if his dizziness is mostly due to orthostasis and hypovolemia Have advised him to try to continue increasing his oral fluid intake as much as he can and also advised him to check and monitor his blood pressure regularly although patient states that he is not sure if he is able to do this Have advised him to just drop by the office sometime next week if he has no way of checking his BP on his own and we can probably get him in for a nurse visit and have them check his BP then (2) Rib pain on right side: Code(s): R07.81 - Pleurodynia Plan: He has (+) old hardware over his right ribs seen on a recent chest x-ray done at [facility] last week, with multiple healed deformities seen on both right and left ribs He strongly believes that this hardware is the source of a lot of his current increased pain and is trying to get in to see the surgeon at [facility] who did his surgery years ago and try to have him take out his rib screws and hardware He was given a few tablets of Oxycodone 5 mg at the ER last week, which he states helped somewhat, and he is now requesting for one-time Rx for just a week's supply of pain meds to help get him through until he can see the rib (thoracic) surgeon next week Have advised him that I will agree to only a ONE-TIME Rx for Oxycodone 5 mg for him to take 1 tablet TID PRN, and will not agree to refilling it again in the future He is advised and encouraged to continue seeing pain management for his chronic pain - he has a follow up appointment next week Will also redo his psychiatry referral and this will include the mental health evaluation and clearance that is required by pain management (a psychiatry referral was made out for him in November 2023 but patient states that he never received any call back regarding this) (3) Furunculosis: Code(s): L02.92 - Furuncle, unspecified Plan: Will start him on Bactrim DS 1 tablet BID x 10 days Have advised patient that IF his lesions are due to MRSA, Bactrim DS should cover MRSA as well (4) Neuropathy: Code(s): G62.9 - Polyneuropathy, unspecified Plan: Continue Gabapentin 600 mg TID He was seen by neurology last month and was started additionally on Duloxetine 20 mg BID and referred to PT Follow up with neurology as scheduled (5) Chronic alcohol abuse: Code(s): F10.10 - Alcohol abuse, uncomplicated Plan: S/P detox late last year; states that he is currently still staying at the [facility] and is now over 10 months sober Continue Thiamine 100 mg QD, Folic Acid 1 mg QD and B12 1000 mcg QD lled (6) Anxiety: Code(s): F41.9 - Anxiety disorder, unspecified Plan: Continue Hydroxyzine 50 mg TID PRN and Buspirone 15 mg TID; continue Sertraline 150 mg QD Also takes Melatonin 5 mg Q HS to help him sleep at night He was not taking his Clonidine 0.2 mg BID - is instructed to at least take his bedtime dose to help with his anxiety Follow up with psychiatry as scheduled (7) Schizoaffective disorder: Code(s): F25.9 - Schizoaffective disorder, unspecified Qualifiers: Schizoaffective disorder type: unspecified Qualified Code(s): F25.9 - Schizoaffective disorder, unspecified Plan: Continue Bupropion 75 mg BID, Gabapentin 600 mg TID and Sertraline 150 mg QD Follow up with psychiatry as scheduled (8) Smoker: Code(s): F17.200 - Nicotine dependence, unspecified, uncomplicated Plan: Counseled again on smoking cessation Plan Follow up as scheduled in May 2024 Orders: Referrals Psychiatry Outpatient Consultation Service F25.9 - Schizoaffective disorder, unspecified, F32.A - Depression, unspecified, F41.9 - Anxiety disorder, unspecified, R45.851 - Suicidal ideations Medications: New sulfamethoxazole-trimethoprim 800-160 mg (Bactrim DS) 1 tab PO BID 10 days 20 tabs 0RF oxycodone Take ONLY NEEDED for severe pain 5 mg PO Q8H 7 days PRN 20 tabs 0RF pain meclizine 25 mg PO TID PRN 30 tabs 1RF dizziness Coding Level of Care Code Est Pt Level 4 (88302) Diagnoses Dizziness R42 Rib pain on right side R07.81 Furunculosis L02.92 Neuropathy G62.9 Chronic alcohol abuse F10.10 Anxiety F41.9 Schizoaffective disorder, unspecified type F25.9 Schizoaffective disorder type: unspecified Smoker F17.200
== END 2024-03-24 13:19 | disposition home or self-care (01) ==
PROVIDERS: PCP Internal Medicine; Visit Provider Internal Medicine
DX: R42 Dizziness and giddiness (principal); R07.81 Pleurodynia; F25.9 Schizoaffective disorder, unspecified; L02.92 Furuncle, unspecified; G62.9 Polyneuropathy, unspecified; F10.10 Alcohol abuse, uncomplicated; F41.9 Anxiety disorder, unspecified; F17.210 Nicotine dependence, cigarettes, uncomplicated
CPT/HCPCS: 99214

== ENCOUNTER 2024-04-22 13:55 | Outpatient (AMB) | payer MEDICARE, MEDICAID, SELFPAY ==
--- NOTE | 2024-04-22 14:01 | MHC.PC.OV ---
Vital Signs 04/22/24 14:02 Height 6 ft 1 in Weight 166 lb BMI 21.9 BP 108/70 Blood Pressure Location Lt brachial Position Sitting Pulse 103 H Pulse Source Pulse Oximeter Pulse Oximetry (%) 95 Oxygen Delivery Method Room Air Intake Visit Reasons: [facility] Discharge 04/05 Intake Note: Patient is here for hospital discharge follow up. Patient was discharged from [facility] on 04/05/24 Inspector Watch Train Required: No Allergies aspirin [ASA] Allergy (Unknown, Verified 04/22/24 14:07) FACIAL SWELLING Penicillins [PENICILLINS] Allergy (Unknown, Verified 04/22/24 14:07) HIVES trazodone Allergy (Verified 04/22/24 14:07) Anaphylaxis tramadol [TRAMADOL] Adverse Reaction (Unknown, Verified 04/22/24 14:07) NAUSEA & VOMITING Tobacco use date assessed: 01/15/24 Dental Screening Dental Screen Date: 01/15/24 HPI HPI Comments History of Present Illness Details 58 y/o male patient who presents to the clinic for follow up. He was admitted to [facility] facility on 03/31 - 04/02. Pt has h/o Alcohol abuse, Substance abuse, HTN, HLP and GERD. Today Pt asking for Oxycodone refills because he is in severe pain due to Back pain. He reports that has Loose screws and plates floating inside his back. Many years ago he had Traumatic Rib fractures which were repaired surgically. Pt asking if we could admit him to the hospital for pain control and surgery to remove the screws. Pt reports that PCP declined to go him any more refills of Oxycodone. He is currently using Gabapentin 800 mg with no relief. He also c/o Dizziness and Meclizine not working. [facility] Medical History (Updated 03/24/24 @ 13:57 by Sergey Archer MD) Neuropathy Foot pain, bilateral Smoker Mixed hyperlipidemia Acquired hypothyroidism Essential hypertension Alcohol use disorder, severe, dependence Polysubstance use disorder Schizoaffective disorder Opiate dependence Colitis Chronic diarrhea Heavy tobacco smoker GERD (gastroesophageal reflux disease) History of colitis Surgical History (Updated 03/24/24 @ 13:48 by Sergey Archer MD) History of back surgery Family History Mother Alzheimer disease Multiple sclerosis Other Mental health disorder Social History Household Members: None Housing: Other Housing Other:: hotel Do you presently have visiting nurse or other home services: No Alcohol intake: former Comment: 1:1 sitter Patient Tobacco Use Status: Current everyday Tobacco user Tobacco use type: Cigarette Cigarette Packs Per Day: 0.5 Cigarettes Per Day: 20.0 Years Smoked: 30 Packs Per Year: 15 Packs per year/per ci.00 e-Cigarette/Vaping Use: Never Used Second Hand Smoke Exposure: Yes Substance Use Type: Marijuana service: No Current occupational status: disabled Sexual orientation: Straight/Heterosexual Cognitive needs: No Hearing needs: No Vision needs: No Questionnaire Thrive Questionnaire Date Thrive assessed: 01/15/24 AUDIT C Alcohol Use Questionnaire (AUDIT-C) 1. How often do you have a drink containing alcohol?: Never 3. How often do you have six or more drinks on one occasion?: Never Total Score: 0 Score Reviewed/Action Taken: Yes ROSANNA-7 AMB Questionnaire ROSANNA-7 Date ROSANNA - 7 assessed: 01/15/24 Source: Developed by Drs. Joe Wright, Vandana Etienne, Chemo Brar and colleagues, with an educational frankie from [employer]. Review of Systems Const All systems reviewed & are unremarkable except as noted in HPI and below Physical exam (Primary Care) Vital Signs: Last Vital Signs Pulse 103 H 04/22/24 14:02 BP 108/70 04/22/24 14:02 Pulse Ox 95 04/22/24 14:02 Oxygen Delivery Method Room Air 04/22/24 14:02 BMI result Body Mass Index 21.9 Tobacco/Smoking Status: Tobacco use Status Tobacco use date assessed 01/15/24 04/22/24 14:02 Patient Tobacco Use Status Current everyday Tobacco 04/22/24 14:02 Tobacco use type Cigarette 04/22/24 14:02 e-Cigarette/Vaping Use Never Used 04/22/24 14:02 Thrive Assessment: Date of Thrive Assessment Date Thrive assessed 01/15/24 04/22/24 14:02 Const General: cooperative and no acute distress Orientation/consciousness: patient oriented x3 Resp Effort & Inspection: normal respiratory effort Neuro General: patient oriented x3, gait normal and moves all extremities Psych Speech and movement: Psychomotor agitation in speech present Affect: Anxious affect present Vital Signs: Last Vital Signs Pulse 103 H 04/22/24 14:02 BP 108/70 04/22/24 14:02 Pulse Ox 95 04/22/24 14:02 Oxygen Delivery Method Room Air 04/22/24 14:02 BMI result Body Mass Index 21.9 Const General: cooperative and no acute distress Orientation/consciousness: patient oriented x3 Resp Effort & Inspection: normal respiratory effort Neuro General: patient oriented x3, gait normal and moves all extremities Psych Speech and movement: Psychomotor agitation in speech present Affect: Anxious affect present Assessment and Plan Assessment & Plan (1) Dizziness: Code(s): R42 - Dizziness and giddiness Plan: Continue on Meclizine PRN. F/U with PCP Coding Level of Care Code Est Pt Level 4 (75590) Diagnoses Dizziness R42 Time Spent (min) 15
[2024-04-22 14:02] VITALS: BP 108/70; PULSE 103; O2SAT 95; BMI 21.9
== END 2024-04-22 14:47 | disposition home or self-care (01) ==
PROVIDERS: PCP Internal Medicine; Visit Provider Nurse Practitioner Family
DX: R42 Dizziness and giddiness (principal)
CPT/HCPCS: 99214

== ENCOUNTER 2024-05-25 12:58 | Outpatient (AMB) | payer MEDICARE, MEDICAID, SELFPAY ==
[2024-05-25 12:56] VITALS: BP 128/84; PULSE 93; O2SAT 99; BMI 21.8
--- NOTE | 2024-05-25 12:56 | A.OFFPC_ITS ---
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 Required: No Accompanied by: Self / Same As Patient Allergies aspirin [ASA] Allergy (Unknown, Verified 05/29/24 13:50) FACIAL SWELLING Penicillins [PENICILLINS] Allergy (Unknown, Verified 05/29/24 13:50) HIVES trazodone Allergy (Verified 05/29/24 13:50) Anaphylaxis tramadol [TRAMADOL] Adverse Reaction (Unknown, Verified 05/29/24 13:50) NAUSEA & VOMITING Medication List - Last Reconciled 05/25/24 by Sergey Archer MD acetaminophen 500 mg PO QID PRN 10 days MDD 4 tablets a day albuterol sulfate 90 mcg/actuation 2 puffs inhalation Q6H PRN amlodipine 5 mg PO DAILY atorvastatin 20 mg PO BEDTIME bupropion HCl 75 mg PO BID buspirone 15 mg PO TID chlorpromazine 200 mg PO QPM clonidine HCl 0.2 mg PO BID 30 days cyanocobalamin (vitamin B-12) 1,000 mcg PO DAILY 90 days duloxetine 20 mg PO BID ferrous sulfate 324 mg PO DAILY folic acid 1 mg PO DAILY food supplemt, lactose-reduced (Ensure oral liquid) 1 ea PO .QD 30 days gabapentin 600 mg PO TID hydroxyzine HCl 100 mg (2 x 50 mg) PO TID 30 days hydroxyzine pamoate 100 mg PO Q8H PRN 30 days levothyroxine 25 mcg PO DAILY 30 days lidocaine-prilocaine 2.5-2.5 % 1 appl topical ONCE meclizine 25 mg PO TID PRN melatonin 5 mg PO BEDTIME metoprolol succinate ER 25 mg PO DAILY 30 days midodrine 5 mg PO TID multivitamin (Daily-Jamin tablet) 1 tab PO DAILY naloxone 4 mg/actuation (Narcan) 4 mg intranasal Q2M PRN ondansetron 4 mg PO Q8H PRN oxycodone 5 mg PO Q8H PRN 7 days pantoprazole 80 mg (2 x 40 mg) PO DAILY tamsulosin 0.4 mg PO BEDTIME 90 days thiamine mononitrate (vit B1) 100 mg PO DAILY 90 days triamcinolone acetonide 0.5% 1 appl topical BID Tobacco use date assessed: 05/25/24 Dental Screening Dental Screen Date: 05/25/24 Did you have a dental visit in the last 12 months?: No Did you have a dental problem in the last 6 months where you did not have access to dental care?: No Was dental information given to patient?: No HPI 4mth f/u HPI Details Patient comes in today for his follow up visit States that he continues to experience increased pain over his right rib cage/torso where he had his rib fractures and subsequent surgery years ago and he is getting worried as to why the pain is not letting up States that he tried to get in to see the surgeon who did his surgery years ago but found out that the doctor is no longer practicing He is now requesting to see somebody else at [facility] instead to help look into this issue and needs a new referral Would like to get his Ibuprofen Rx refilled in the meantime States that his right-sided chest (wall) pain is currently worse as he fell down a set of 3 stairs at the [employer] [facility] where he is currently staying about 3 weeks ago He reportedly hit his head and passed out for at least a few seconds when he fell He was brought in to the ER at [facility] after his fall for further evaluation after someone at the [facility] found him down on the floor Work ups done in the ER included chest x-rays and abdominal/pelvic CT - x-rays revealed (+) multiple right rib fractures confirmed on abdominal CT CT again showed a previous chronic mild wedge compression deformity of the T12 vertebral body with new subtle subcortical lucency at the superior endplate Chest x-rays revealed unchanged non-specific interstitial and alveolar opacities R>L; abdominal CT further mentioned a slight increase in the bibasilar septal thickening with associated ground-glass opacities similar to those seen on 07/10/2022, representing likely chronic interstitial lung disease Neurosurgery was consulted regarding the changes seen at the T12 vertebra and they advised that this is a normal progression seen in vertebral fractures and recommended no additional imaging or work ups Patient was also noted to be orthostatic and have emphasized to him that he needs to take his Midodrine 5 mg TID regularly States that he now needs a refill on this He denies any headaches at present Denies any exertional chest pains other than those associated with or near his rib fracture on the right side of his torso He denies any increased SOB No nausea/vomiting, no abdominal pain No change in bowel habits noted He is also requesting for Rx for Ensure to help him gain weight - feels that his weight keeps dropping and is concerned that he is going to waste away at some point [facility] Medical History (Updated 05/25/24 @ 13:34 by Sergey Archer MD) Neuropathy Foot pain, bilateral Smoker Mixed hyperlipidemia Acquired hypothyroidism Essential hypertension Alcohol use disorder, severe, dependence Polysubstance use disorder Schizoaffective disorder Opiate dependence Colitis Chronic diarrhea Heavy tobacco smoker GERD (gastroesophageal reflux disease) History of colitis Surgical History History of back surgery Family History Mother Alzheimer disease Multiple sclerosis Other Mental health disorder Social History Household Members: None Housing: Other Housing Other:: hotel Do you presently have visiting nurse or other home services: No Alcohol intake: former Comment: 1:1 sitter Patient Tobacco Use Status: Current everyday Tobacco user Tobacco use type: Cigarette Cigarette Packs Per Day: 0.5 Cigarettes Per Day: 20.0 Years Smoked: 30 e-Cigarette/Vaping Use: Never Used Second Hand Smoke Exposure: Yes Substance Use Type: Marijuana service: No Current occupational status: disabled Sexual orientation: Straight/Heterosexual Cognitive needs: No Hearing needs: No Vision needs: No Questionnaire PHQ-9 Over the last 2 weeks, how often have you been bothered by any of the following problems? 1. Little interest or pleasure in doing things: more than half the days 2. Feeling down, depressed, or hopeless: more than half the days 3. Trouble falling or staying asleep, or sleeping too much: nearly every day 4. Feeling tired or having little energy: more than half the days 5. Poor appetite or overeating: more than half the days 6. Feeling bad about yourself - or that you are a failure or have let yourself or your family down: several days 7. Trouble concentrating on things, such as reading the newspaper or watching television: several days 8. Moving or speaking so slowly that other people could have noticed. Or the opposite - being so fidgety or restless that you have been moving around a lot more than usual: not at all 9. Thoughts that you would be better off or of hurting yourself in some way: not at all Total score: 13 Depression Screening Interpretation: Positive Depression Screening Follow-up: Existing condition and In treatment Depression Screening Done: Yes 16027 - PHQ-9 Billing: Yes Source: Developed by Drs. Joe Wright, Vandana Etienne, Chemo Brar and colleagues, with an educational frankie from [employer]. Thrive Questionnaire Date Thrive assessed: 05/25/24 I am a: Patient What is your living situation today?: I have a steady place to live Within the past 12 months, did the food you bought not last and you didn't have the money to get more?: Never true Within the past 12 months, did you worry whether your food would run out before you got money to buy more?: Never true Do you have trouble paying for medicines?: No Do you have trouble getting transportation to medical appointments?: No Do you have trouble paying your heating and electricity bill?: No Do you have trouble taking care of your child, family member or friend?: No Do you have trouble with day-to-day activities such as bathing, preparing meals, shopping, managing finances, etc.?: No Are you currently unemployed and looking for a job?: No Are you interested in more education?: No Please select the resources that you would like help with: None Currently or been in a relationship where the following occur: No concerns reported THRIVE Score: 0 AUDIT C Alcohol Use Questionnaire (AUDIT-C) 1. How often do you have a drink containing alcohol?: Never 3. How often do you have six or more drinks on one occasion?: Never Total Score: 0 Score Reviewed/Action Taken: Yes ROSANNA-7 AMB Questionnaire ROSANNA-7 Date ROSANNA - 7 assessed: 05/25/24 Feeling nervous, anxious, or on edge: 0 = Not at all Not being able to stop or control worryin = Not at all Worrying too much about different things: 0 = Not at all Trouble relaxin = Not at all Being so restless that it is hard to sit still: 0 = Not at all Becoming easily annoyed or irritable: 0 = Not at all Feeling afraid as if something awful might happen: 0 = Not at all Total ROSANNA-7 score (0-4 normal; 5-9 mild; 10-14 moderate; 15-21 severe): 0 Source: Developed by Drs. Joe Wright, Vandana Etienne, Chemo Brar and colleagues, with an educational frankie from [employer]. Review of Systems Const Denies chills, Reports fatigue, Denies fever(s) and Denies headache(s) ENT Denies dysphagia, Reports dizziness (recurrent), Denies otalgia, Denies headache(s), Denies neck pain, Denies odynophagia and Denies sore throat Card Reports chest pain (increased over his right torso/right chest wall), Denies chest pain with activity, Denies palpitations and Denies dyspnea Resp Reports chest congestion (at times, mild), Denies cough and Denies dyspnea GI Denies abdominal pain, Denies constipation, Denies dysphagia, Denies heartburn, Denies diarrhea, Denies nausea, Denies odynophagia and Denies vomiting Reports oliguria, Denies dysuria, Denies nocturia, Denies urinary frequency and Reports urinary hesitancy Musc Details: increased pain over his right ribs; chronic pain over both lower extremities Reports back pain (chronic) and Denies neck pain Skin/Breast Details: (+) multiple scattered healed sores, some with minimal scarring noted Reports rash (recurrent scattered rash) Neuro Details: (+) recurrent burning pain on both feet Reports burning sensations, Reports dizziness (recurrent), Denies headache(s) and Reports paresthesias Psych Reports anxiety (increased) and Reports depression Endo Reports fatigue and Denies palpitations Physical exam (Primary Care) Vital Signs: Last Vital Signs Pulse 93 05/25/24 12:56 BP 128/84 05/25/24 12:56 Pulse Ox 99 05/25/24 12:56 Oxygen Delivery Method Room Air 05/25/24 12:56 BMI result Body Mass Index 21.8 Tobacco/Smoking Status: Tobacco use Status Tobacco use date assessed 05/25/24 05/25/24 13:02 Patient Tobacco Use Status Current everyday Tobacco 05/25/24 13:02 Tobacco use type Cigarette 05/25/24 13:02 e-Cigarette/Vaping Use Never Used 05/25/24 13:02 PHQ-9: PHQ-9 Score PHQ-9: Total score 13 05/29/24 13:52 Depression Screening Interpretation: Positive Depression Screening Follow-up: Existing condition and In treatment Thrive Assessment: Date of Thrive Assessment Date Thrive assessed 05/25/24 05/25/24 13:02 Currently or been in a relationship where the following occur: No concerns reported Const General: no acute distress and alert HENMT Ears: TM's normal bilaterally and EAC's normal Throat: Yes posterior oropharynx normal and Yes tonsils normal (no TP congestion) Neck Neck: Yes no lymphadenopathy and Yes supple Thyroid: Thyroid normal Chest Other: (+) tenderness over the entire right anterolateral side of the rib cage Resp Auscultation: clear to auscultation bilaterally, no rales and no wheezes Cardio Rate: regular rate Rhythm: regular rhythm Heart sounds: no murmurs GI Palpation (GI): Soft to palpation and nontender Auscultation: normal bowel sounds General: Yes no CVA tenderness Back/Spine/Pelvis Back: no CVA tenderness Thoracic/Lumbar Spine: lumbar spinal tenderness Skin Other: (+) multiple scattered healed vesicular lesions - on the forearms , over the scalp and on the abdominal wall and chest wall Extrem General: Yes no clubbing, cyanosis or edema Assessment and Plan Assessment & Plan (1) Dizziness: Code(s): R42 - Dizziness and giddiness Plan: Have advised patient that his blood pressure is much better in the office today - likely due to the effects of Midodrine His orthostasis is likely multifactorial We had him HOLD his Amlodipine at his last visit and he is currently still on Clonidine 0.2 mg Q HS (was taking it BID previously) that he takes more for anxiety and Metoprolol ER 25 mg QD Have reminded patient to continue monitoring his blood pressure regularly and he is requesting for Rx for a BP monitor for this purpose - BP monitor Rx provided to patient Per request, will also try sending in Rx for Ensure supplements for him - not sure if insurance will agree to cover this or not though (2) Rib pain on right side: Code(s): R07.81 - Pleurodynia Plan: He has (+) old hardware over his right ribs seen on a recent chest x-ray done at [facility] a few months ago, with multiple healed deformities seen on both right and left ribs He strongly believes that this hardware is the source of a lot of his current increased pain and is trying to get in to see the surgeon at [facility] who did his surgery years ago and try to have him take out his rib screws and hardware but he recently found out that the doctor is no longer in active practice and he is requesting for a referral to see another surgeon in [place] for this He has recent abdominal CT done at the ER a few weeks ago when he fell down some stairs - CT revealed the multiple right rib fractures and also a previous chronic mild wedge compression deformity of the T12 vertebral body Thoracic surgery ([facility]) referral done, per request He is encouraged to continue seeing pain management as well for his chronic pain He was again referred to psychiatry at his last visit, to include the mental health evaluation and clearance that is required by pain management (a psychiatry referral was made out for him in November 2023 but patient states that he never received any call back regarding this) (3) Neuropathy: Code(s): G62.9 - Polyneuropathy, unspecified Plan: Continue Gabapentin 600 mg TID He was seen by neurology a few months ago and was started additionally on Duloxetine 20 mg BID and referred to PT Follow up with neurology as scheduled (4) Chronic alcohol abuse: Code(s): F10.10 - Alcohol abuse, uncomplicated Plan: S/P detox late last year; states that he is currently still staying at the [facility] and is just over 12 months sober now Continue Thiamine 100 mg QD, Folic Acid 1 mg QD and B12 1000 mcg QD (5) Anxiety: Code(s): F41.9 - Anxiety disorder, unspecified Plan: Continue Hydroxyzine 100 mg TID PRN, Bupropion 75 mg BID and Buspirone 15 mg TID; continue Duloxetine 20 mg TID He also takes Melatonin 5 mg Q HS to help him sleep at night; he was also instructed to take his bedtime dose of Cloniding 0.2 mg to help with his anxiety and help him sleep better at night Follow up with psychiatry as scheduled (6) Schizoaffective disorder: Code(s): F25.9 - Schizoaffective disorder, unspecified Qualifiers: Schizoaffective disorder type: unspecified Qualified Code(s): F25.9 - Schizoaffective disorder, unspecified Plan: Continue Bupropion 75 mg BID, Gabapentin 600 mg TID and Duloxetine 20 mg TID Follow up with psychiatry as scheduled (7) Smoker: Code(s): F17.200 - Nicotine dependence, unspecified, uncomplicated Plan: Counseled again on smoking cessation Plan Follow up in 3 months Orders: Referrals Thoracic/General Surgery Referral S22.49XA - Multiple fractures of ribs, unspecified side, initial encounter for closed fracture Medications: New blood pressure monitor As directed 1 ea 0RF I10 - Essential (primary) hyper tension midodrine do not give last dose of day after 6PM or within 4 hrs of bedtime 5 mg PO TID 30 days 90 tabs 2RF ibuprofen Take with food and only as needed 800 mg PO TID PRN 90 tabs 1RF pain Refilled food supplemt, lactose-reduced (Ensure oral liquid) 1 ea PO .QD 30 days 5,688 mL 0RF R63.4 - Abnormal weight loss Coding Level of Care Code Est Pt Level 4 (81525) Diagnoses Dizziness R42 Rib pain on right side R07.81 Neuropathy G62.9 Chronic alcohol abuse F10.10 Anxiety F41.9 Schizoaffective disorder, unspecified type F25.9 Schizoaffective disorder type: unspecified Smoker F17.200
--- OUTSIDE RECORDS SUMMARY | 2024-05-25 12:57 | XMS_ITS | Continuity of Care Document ---
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 Name Role Phone Sergey Archer MD Primary Care Physician Encounter [facility] Date(s): 04/28/24 - 05/04/[address] [id number] Encounter Diagnosis Fall(Final) - 04/28/24 Hypotension(Final) - 04/28/24 Lung interstitial disease(Final) - 04/28/24 Discharge Disposition: A-Transfer SNF Attending Physician: Yoana Wong MD Admitting Physician: Aurelio Collier MD Referring Physician: Not on Staff, Referring MD Allergies, Adverse Reactions, Alerts Substance Reaction Severity Status aspirin Active penicillins hives Active Egg Allergy Mild Active traMADol racing thoughts Active Immunizations Given [...] 23-valent vaccine 02/18/17 Given 1Result Comment: [09/21/2018] [facility] [id number] 2Result Comment: [06/10/2017] [facility]: [id number] 3Result Comment: [09/09/2017] [facility]# [id number] 4Result Comment: [09/09/2017] [facility]# [id number] Medications acetaminophen 500 mg oral tablet 1 tablet = 500 mg, By Mouth, 4 times a day, NEEDED FOR PAIN FOR 10 DAYS MAX 4 TABS PER DAY Start Date: 03/29/24 Status: Ordered albuterol CFC free 90 mcg/inh inhalation aerosol 180 mcg, 2, puffs, Inhalation, Every 4 hours, PRN, # 6.7 Gm, Refills 0, Tot. Refills 0, Maintenance, 06/08/23 17:47:00 EDT, Inhaler, Route to Pharmacy Electronically, [id number], [facility]/pharmacy #[id number], [id number], 06/08/23 10:04:00... Start Date: 06/08/23 Status: Ordered atorvastatin 20 mg oral tablet 1 tablet = 20 mg, By Mouth, Daily, # 30 tablet, 0 Refills, Maintenance, 03/28/24 18:52:00 EDT, Tablet, Partial fill upon patient request if the prescription is for a schedule II opioid drug. Start Date: 03/28/24 Status: Ordered busPIRone 15 mg oral tablet 1 tablet = 15 mg, By Mouth, 3 times a day, # 90 tablet, 0 Refills, Maintenance, 03/29/24 8:45:00 EDT, Tablet, Partial fill upon patient request if the prescription is for a schedule II opioid drug. Start Date: 03/29/24 Status: Ordered chlorproMAZINE 200 mg oral tablet 1 tablet = 200 mg, By Mouth, Daily at bedtime, # 30 tablet, 0 Refills, Maintenance, 06/08/23 17:51:00 EDT, Tablet, [facility]/pharmacy #[id number], Partial fill upon patient request if the prescription is for a schedule II opioid drug., 187, cm, 06/08/23 10:04:00... Start Date: 06/08/23 Stop Date: 07/08/23 Status: Ordered duloxetine 20 mg oral enteric coated capsule 1 capsule = 20 mg, By Mouth, 2 times a day, # 180 capsule, 0 Refills, Maintenance, 03/27/24 6:05:00EDT, EC Capsule, Partial fill upon patient request if the prescription is for a schedule II opioid drug. Start Date: 03/27/24 Status: Ordered gabapentin 300 mg oral capsule 600 mg, Capsule, By Mouth, 05/04/24 15:00:00 EDT Start Date: 05/04/24 Stop Date: 05/04/24 Status: Completed gabapentin 600 mg oral tablet 1 tablet = 600 mg, By Mouth, 3 times a day, # 270 tablet, 0 Refills, Maintenance, 03/28/24 18:52:00EDT, Tablet, Partial fill upon patient request if the prescription is for a schedule II opioid drug. Start Date: 03/28/24 Status: Ordered hydrOXYzine pamoate 100 mg oral capsule 1 capsule = 100 mg, By Mouth, 3 times a day, PRN for anxiety, # 90 capsule, 0 Refills, Maintenance,06/08/23 17:52:00 EDT, Capsule, [facility]/pharmacy #[id number], Partial fill upon patient request if the prescription is for a schedule II opioid drug., 187, cm, 0... Start Date: 06/08/23 Stop Date: 07/08/23 Status: Ordered levothyroxine 0.025 mg oral tablet 1 tablet = 25 mcg, By Mouth, Daily, # 30 tablet, 0 Refills, Maintenance, 06/08/23 17:48:00 EDT, Tablet, [facility]/pharmacy #[id number], Partial fill upon patient request if the prescription is for a schedule II opioid drug., 187, cm, 06/08/23 10:04:00 EDT, Height... Start Date: 06/08/23 Status: Ordered lidocaine-prilocaine 2.5%-2.5% topical cream 1 application, Topically, Once, apply to both feet prior to appointment, # 30 Gm, 0 Refills, Maintenance, 03/28/24 18:56:00 EDT, Cream, Partial fill upon patient request if the prescription is for a schedule II opioid drug. Start Date: 03/28/24 Status: Ordered meclizine 25 mg oral tablet 1 tablet = 25 mg, By Mouth, 3 times a day, PRN for dizziness, # 30 tablet, 0 Refills, Maintenance, 03/28/24 18:56:00 EDT, Tablet, Partial fill upon patient request if the prescription is for a schedule II opioid drug. Start Date: 03/28/24 Status: Ordered melatonin 5 mg oral tablet 1 tablet = 5 mg, By Mouth, Daily at bedtime, PRN for insomnia, # 30 tablet, 0 Refills, Maintenance,06/08/23 17:50:00 EDT, Tablet, [facility]/pharmacy #[id number], Partial fill upon patient request if the prescription is for a schedule II opioid drug., 187, cm, 09... Start Date: 06/08/23 Stop Date: 07/08/23 Status: Ordered midodrine 5 mg oral tablet 5 mg, Tablet, By Mouth, Hold for: systolic BP > 140, 05/04/24 15:00:00 EDT Start Date: 05/04/24 Stop Date: 05/04/24 Status: Completed midodrine 5 mg oral tablet 5 mg, By Mouth, 3 times a day, Hold for SBP >140 Avoid giving at bedtime, Refills 0, Maintenance, 05/02/24 12:44:00 EDT, Partial fill upon patient request if the prescription is for a schedule II opioid drug. Start Date: 05/02/24 Status: Ordered nicotine 21 mg/24 hr transdermal film, extended release 1 patch, Topically, Daily, for 30 days, Apply to skin. Leave on for 24 hours. Use for at least 3 months before tapering down., # 30 patch, 5 Refills, Acute 09/25/24 16:15:00 EST, 03/29/24 16:15:00 EDT, Patch, [facility]/pharmacy #[id number], Partial fill upon pa... Start Date: 03/29/24 Stop Date: 09/25/24 Status: Ordered nicotine 4 mg oral transmucosal lozenge See Instructions, PRN as needed for smoking cessation, Use 1 lozenge by mouth to replace times you regularly smoke and as needed for nicotine cravings. Place between gum and cheek until disolved, do not chew or swallow whole. May use up to 20 lozen... Start Date: 03/29/24 Stop Date: 03/29/25 Status: Ordered oxyCODONE 5 mg oral tablet 5 mg, Tablet, By Mouth, Every 6 hours, PRN for Pain , Severe, Routine, 05/01/24 9:14:00 EDT Start Date: 05/01/24 Stop Date: 05/05/24 Status: Discontinued oxyCODONE 5 mg oral tablet TAKE 1 TABLET BY MOUTH EVERY 8 HOURS NEEDED FOR PAIN FOR 7 DAYS ONLY FOR SEVERE PAIN Start Date: 03/28/24 Status: Ordered pantoprazole 40 mg oral delayed release tablet 2 tablet = 80 mg, By Mouth, Daily, # 60 tablet, 0 Refills, Maintenance, 03/29/24 8:47:00 EDT, CR Tablet Start Date: 03/29/24 Status: Ordered sertraline 100 mg oral tablet 1.5 tablet = 150 mg, By Mouth, Daily, 0 Refills, Maintenance, 03/28/24 18:58:00 EDT, Partial fill upon patient request if the prescription is for a schedule II opioid drug. Start Date: 03/28/24 Status: Ordered tamsulosin 0.4 mg oral capsule 0.4 mg, 1, capsule, By Mouth, Daily, # 30 capsule, Refills 0, Maintenance, 03/28/24 18:52:00 EDT, Partial fill upon patient request if the prescription is for a schedule II opioid drug. Start Date: 03/28/24 Status: Ordered varenicline 1mg tablet 1 tablet = 1 mg, By Mouth, 2 times a day, Take with food and with a full glass of water, # 60 tablet, 4 Refills, Acute 03/29/25 16:18:00 EDT, 03/29/24 16:17:00 EDT, Tablet, [facility]/pharmacy #[id number], Partial fill upon patient request if the prescription is f... Start Date: 03/29/24 Stop Date: 03/29/25 Status: Ordered Vitamin B1 100 mg oral tablet 100 mg, 1, tablet, By Mouth, Daily, # 14 tablet, Refills 0, Maintenance, 03/28/24 18:52:00 EDT, Partial fill upon patient request if the prescription is for a schedule II opioid drug. Start Date: 03/28/24 Stop Date: 04/11/24 Status: Ordered Vitamin B12 1000 mcg oral tablet 1 tablet = 1,000 mcg, By Mouth, Daily, # 30 tablet, 0 Refills, Maintenance, 03/29/24 8:40:00 EDT, Tablet, Partial fill upon patient request if the prescription is for a schedule II opioid drug. Start Date: 03/29/24 Status: Ordered Vitamin D3 2000 intl units oral tablet 1 tablet = 50 mcg, By Mouth, Daily, # 30 tablet, 0 Refills, Maintenance, 06/08/23 17:48:00 EDT, Tablet, [id number], Partial fill upon patient request if the prescription is for a schedule II opioid drug., 187, cm, 06/08/23 10:04:00 EDT, Height... Start Date: 06/08/23 Stop Date: 07/08/23 Status: Ordered Problem List Condition Confirmation Course Effective Dates Status H ealth Status Informant Asthma Confirmed Active Benign hypertension Confirmed Active Caregiver stress Confirmed Active Deep vein thrombosis (DVT) Confirmed Active Dysphagia Confirmed Active Elevated transaminase level Confirmed Active Substance use Confirmed Active Left rib fracture, sixth Confirmed Active GERD (gastroesophageal reflux disease) Confirmed Active History of anxiety Confirmed Active History of depression Confirmed Active Status post dilation of esophageal narrowing 1 Confirmed Active Elevated cholesterol Confirmed Active Hypothyroidism Confirmed Active Low back pain Confirmed Active Mild persistent asthma Confirmed Active Anxious depression Confirmed Active Lower extremity pain Confirmed Active Anoxic-Ischemic Brain Injury Confirmed Active Hepatic steatosis Confirmed Active Odynophagia Confirmed Active Tobacco abuse Confirmed Active Tobacco use disorder Confirmed Active Vitamin D deficiency Confirmed Active 1While living in [place] Results Radiology Reports * Exam Date Time Procedure Performing Provider Status 04/28/24 6:19 PM Ribs W/ PA Chest Right Mila Hanson (Verified) Notes: (Ribs W/ PA Chest Right) Reason For Exam: Trauma RESULT: Ribs W/ PA Chest Right PROCEDURE: Ribs W/ PA Chest Right CLINICAL INDICATION: 58 years old Male with RIGHT rib cage pain, multiple fractures status post ORIF. COMPARISON: Multiple chest radiographs and RIGHT rib radiographs 2018 through March 26, 2024, reportof unenhanced CT chest March 30, 2024. TECHNIQUE: PA upright chest and AP and oblique views of the RIGHT rib cage obtained. FINDINGS: Several EKG leads project over the chest. Lungs and pleura: Significant worsening of interstitial prominence now moderate to severe without gradient, superimposed on prior unchanged hyperinflation of the lungs compatible with emphysema. Lungs otherwise clear as visualized. No pleural effusion. No evidence of pneumothorax. Heart, mediastinum and capo: Mild tortuosity and calcification of the thoracic aorta unchanged. No cardiomegaly. No pulmonary venous hypertension. Bones: Old fractures of the RIGHT 4th 5th 6th 7th and 8th ribs again noted with anterolateral ORIF with metallic plates and screws and more posterior talus formation, solid. Old fractures of the [id number] posterolateral rib again noted. No definite new fracture noted. Mild thoracic dextroscoliosis unchanged. IMPRESSION: 1. Significant progression of interstitial lung disease. Please correlate clinically. 2. Evidence of emphysema. 3. Multiple old rib fractures as described, with ORIF on the RIGHT again seen. No definite new fractures. Thank you for allowing me to participate in the care of this patient. WSN: [id number] Ordering Physician: Hung Noriega Dictated By: Dmitry Salas MD Dictated Date/Time: 04/28/24 6:33 pm Reviewed By: Dmitry Salas MD Signed By: Dmitry Salas MD Signed Date/Time: 04/28/24 6:33 pm Transcribed By: MANDA Transcribed Date/Time: 04/28/24 6:27 pm * Exam Date Time Procedure Performing Provider Status 04/28/24 5:[address] Cervical Spine W/O Contrast Caitlyn Rodriguez; Alisia (Verified) Notes: (CT Cervical Spine W/O Contrast) Reason For Exam: Neck trauma, dangerous injury mechanism;Other: RESULT: CT Cervical Spine W/O Contrast CT Head/Brain W/O Contrast, CT Cervical Spine W/O Contrast INDICATION: Reason: Trauma; Clinical Question(s): Hematoma; Order Comment: TECHNIQUE: Noncontrast head CT using axial technique was reconstructed in axial and coronal planes.Noncontrast spiral CT through the cervical spine was formatted in 3 planes. Automatic tube modulation was used for the cervical spine and iterative dose reconstruction was used for both the head and cervical spine to optimize scan parameters and image quality. CTDIvol Body: 18.68 mGy, DLP Body: 498 mGy*cm. CTDIvol Head: 49.81 mGy, DLP Head: 897 mGy*cm. COMPARISON: 03/26/2024 FINDINGS: Floor Person View Findings, Lines and Tubes: None. BRAIN AND EXTRA-AXIAL SPACES: No parenchymal hemorrhage, midline shift, or mass effect. Griffin-white matter differentiation is wellpreserved. No acute infarct. Ventricles, sulci, and basilar cisterns are normal. Mild low-density white matter changes. No subarachnoid hemorrhage. No subdural or epidural collection. CALVARIUM, SKULL BASE, AND SOFT TISSUES: No fractures or suspicious bony lesions. The paranasal sinuses and mastoid air cells are clear. Visualized orbits and globes are intact. The extracranial soft tissues are unremarkable. CERVICAL SPINE: No fracture. No acute osseous abnormalities. Normal alignment. No locked or perched facet. Mild multilevel degenerative disc space narrowing andend plate irregularity. Narrowing of the atlantodens interval. OTHER BONES: No acute abnormality. CERVICAL SOFT TISSUES AND LUNG APICES: Normal soft tissues. Biapical honeycombing and groundglass opacity. IMPRESSION: No acute abnormality of the head or cervical spine. WSN: [id number] Ordering Physician: Hung Noriega Dictated By: Cee South MD Dictated Date/Time: 04/28/24 5:50 pm Reviewed By: Cee South MD Signed By: Cee South MD Signed Date/Time: 04/28/24 5:50 pm Transcribed By: MANDA Transcribed Date/Time: 04/28/24 5:44 pm * Exam Date Time Procedure Performing Provider Status 04/28/24 5:[address] Head/Brain W/O Contrast Ludmila Rodriguez; Auth (Verified) Notes: (CT Head/Brain W/O Contrast) Reason For Exam: Trauma RESULT: CT Head/Brain W/O Contrast CT Head/Brain W/O Contrast, CT Cervical Spine W/O Contrast INDICATION: Reason: Trauma; Clinical Question(s): Hematoma; Order Comment: TECHNIQUE: Noncontrast head CT using axial technique was reconstructed in axial and coronal planes.Noncontrast spiral CT through the cervical spine was formatted in 3 planes. Automatic tube modulation was used for the cervical spine and iterative dose reconstruction was used for both the head and cervical spine to optimize scan parameters and image quality. CTDIvol Body: 18.68 mGy, DLP Body: 498 mGy*cm. CTDIvol Head: 49.81 mGy, DLP Head: 897 mGy*cm. COMPARISON: 03/26/2024 FINDINGS: Floor Person View Findings, Lines and Tubes: None. BRAIN AND EXTRA-AXIAL SPACES: No parenchymal hemorrhage, midline shift, or mass effect. Griffin-white matter differentiation is wellpreserved. No acute infarct. Ventricles, sulci, and basilar cisterns are normal. Mild low-density white matter changes. No subarachnoid hemorrhage. No subdural or epidural collection. CALVARIUM, SKULL BASE, AND SOFT TISSUES: No fractures or suspicious bony lesions. The paranasal sinuses and mastoid air cells are clear. Visualized orbits and globes are intact. The extracranial soft tissues are unremarkable. CERVICAL SPINE: No fracture. No acute osseous abnormalities. Normal alignment. No locked or perched facet. Mild multilevel degenerative disc space narrowing andend plate irregularity. Narrowing of the atlantodens interval. OTHER BONES: No acute abnormality. CERVICAL SOFT TISSUES AND LUNG APICES: Normal soft tissues. Biapical honeycombing and groundglass opacity. IMPRESSION: No acute abnormality of the head or cervical spine. WSN: [id number] Ordering Physician: Hung Noriega Dictated By: Cee South MD Dictated Date/Time: 04/28/24 5:50 pm Reviewed By: Cee South MD Signed By: Cee South MD Signed Date/Time: 04/28/24 5:50 pm Transcribed By: MANDA Transcribed Date/Time: 04/28/24 5:44 pm Vital Signs Most recent to oldest [Reference Range]: 1 2 3 Height 185 cm (05/04/24 3:41 PM) 185 cm (05/04/24 11:12 AM) 185 cm (05/04/24 8:37 AM) Weight 80 kg (04/29/24 1:26 AM) Oxygen Saturation [94-100 %] 95 % (05/04/24 3:41 PM) 95 % (05/04/24 11:12 AM) 94 % (05/04/24 8:37 AM) Pulse Rate [55-90 bpm] 82 bpm (05/04/24 3:41 PM) 82 bpm (05/04/24 3:16 PM) 79 bpm (05/04/24 11:12 AM) Body Mass Index [18.5-24.99 kg/m2] 23.37 kg/m2 (04/29/24 1:26 AM) Blood Pressure [90-138/55-84 mm Hg] 118/77mm Hg (05/04/24 3:41 PM) 119/77mm Hg (05/04/24 3:16 PM) 111/79mm Hg (05/04/24 11:12 AM) Respiratory Rate [16-30 br/min] 18 br/min (05/04/24 3:41 PM) 18 br/min (05/04/24 3:16 PM) 18 br/min (05/04/24 3:16 PM) Temperature [96.8-100.4 DegF] 97.2 DegF (05/04/24 3:41 PM) 97.6 DegF (05/04/24 11:12 AM) 97.4 DegF (05/04/24 8:37 AM) Mode of Delivery (Oxygen) Room air (05/04/24 3:41 PM) Room air (05/04/24 11:12 AM) Room air (05/04/24 8:37 AM) Blood pressure sites Arm, right (05/04/24 3:41 PM) Arm, left (05/04/24 11:12 AM) Arm, left (05/04/24 8:37 AM) Temperature Route Oral (05/04/24 3:41 PM) Oral (05/04/24 11:12 AM) Oral (05/04/24 8:37 AM) Dry Weight 80 kg (04/29/24 1:26 AM) Social History Social History Type Response Smoking Status Current every day sm oker; Type: Cigarettes; Tobacco use times per day: 1 PPD now down to 1 pack/week; Number of years: 36; Total pack years: 36; Started at age: 15; entered on: 03/02/17 Sex Admission evaluation note * Marina Moore: MODIFY Marina Moore: MODIFY Event Display: Admission Note Authored Date: [id number] Patient: ??DOMINGA MURRIETA ? Age:??58 Years?Sex:??Male?:??1965?? Chief Complaint/Reason for Consultation From [facility], pt endorses weakness & tremors since this morning - feels like when I had pneumonia . was walking down the stairs, pt states he lost conciousness for a few seconds. no thinners.R rib pain. L knee pain. refused c-collar History of Present Illness 58-year-old male with a past medical history of anxiety, depression, hypomagnesemia, acute hypoxic respiratory failure, pneumonia, JEWEL, hypothyroidism, hypertension presented to the hospital after a mechanical??fall that occurred at the sober house in which he resides. Patient initially reported tothe ED provider that he missed??a step in which he then fell, hit his head and lost consciousness and was down for 15 minutes until another member of the home found him and called EMS. Patient then reported that he passed out in which resulted in the fall but he never hit his head, patient later showed a video that revealed it was a mechanical fall where he missed a step, landed on his right side, never hit his head or lost consciousness. CT scan of the head and spine revealed no acute abnormalities. X-ray of the chest revealed multiple old rib fractures as described, with ORIF on the right, no definite new fractures. The x-ray also revealed evidence of Emphysema, patient reported that he has been smoking a pack a day since he was 15 years old, he stated he is trying to quit. Patient stated that he has some associated wheezing due to smoking history and residual cough??from previously treated CAP 03/31, he stated he??finished the??full course of antibiotic regimen. Patient was empirically treated for CAP in the ED with Azithromycin and Ceftriaxone, later discontinued??due to??x-ray and lab results. Upon arrival to the ED, patient was afebrile, WBC 10.3, hemodynamically stable, electrolytes within normal ranges, Cr 1.25 (baseline 1.0), Alkaline Phosphatase 174, ethanol not detected, patient reported that he has been sober for 1 year and 1 month. Also noted to be hypotensive systolic in the 80's, given one liter IVF,?? reported that within the last month he has stopped taking home regimen of Amlodipine and Metoprolol.?? He expressed dizziness that is increased when he stands up.?? 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 PCP??deals with??elderly patients and are not sure what to do with me .?? He does specifically ask for??oxycodone 10 mg from??this provider as well as??nursing. Review of Systems Constitutional:??Positive for chills, weight loss. Denies fever, sweating or appetite changes. HEENT:??Negative for congestion, ear discharge/pain, hearing loss, rhinorrhea, sinus pain/pressure,sore throat Eyes:??Negative for eye discharge, itching, pain, redness, photophobia, visual disturbances Respiratory:??Positive for shortness of breath and wheezing, thought be due to smoking history. Denied cough. Cardio:??Denied chest pain, palpations. GI:??Negative for abdominal distention/pain, blood in stool, constipation, diarrhea, nausea, vomiting :??Denied frequency, urgency, urine decreased Musculoskeletal:??Positive for muscle aches on right side from impact of the fall. Denied other muscle or joint pain. Skin:??Denied rashes. Neurologic:??Positive dizziness, denied??lightheadedness or??headaches?? Psychiatric:??Positive depression, anxiety?? Objective Vital Signs?? Temperature: 97.5 DegF (04/29/24 10:00:00) Temperature Route: Oral (04/29/24 10:00:00) Pulse Rate: 78 bpm (04/29/24 10:00:00) Respiratory Rate: 16 br/min (04/29/24 11:24:00) Respiratory Rate: 18 br/min (04/29/24 11:24:00) Systolic Blood Pressure: 130 mm Hg (04/29/24 10:00:00) Diastolic Blood Pressure:??92 mm Hg??High (04/29/24 10:00:00) Blood pressure sites: Arm, right (04/29/24 10:00:00) Mean Arterial Pressure: 96 mm Hg (04/29/24 03:54:00) Pulse Pressure: 38 mm Hg (04/29/24 10:00:00) Oxygen Saturation:??90 %??Low (04/29/24 10:00:00) Mode of Delivery (Oxygen): Room air (04/29/24 10:00:00) Early Warning Score: 4 (04/29/24 11:30:28) ? Intake/Output? No Data Available ? Physical Exam Constitutional: Resting comfortable, cooperative, alert/awake, in no acute distress. Head: Normocephalic, atraumatic Eyes: Pupils are equal, round and reactive to light. Extraocular muscles intact. No pallor or scleral icterus Ear, Nose and Throat: mucous membranes moist. Ears and nose - no obvious deformities. Trachea midline. Neck: Supple, Full range of motion.No JVD or bruits. Respiratory:??Clear to auscultation??throughout. No wheezing, rales, or rhonchi.??No use of accessory muscles. Cardiovascular:??S1 S2 regular. murmur noted, rubs or gallops. Gastrointestinal:??Abdomen soft, non-tender, non-distended. Normal bowel sounds. No pulsatile mass. Extremities: No bilateral lower extremity edema or tenderness. Neurologic:??AAOx3, Cranial nerves II-XII grossly intact. No focal neurological deficits. Moves allextremities spontaneously. Sensation intact bilaterally. Skin:??No rash.?? Musculoskeletal:??No gross deformities on inspection. Normal range of motion in hips, knees, ankles. Muscle strength 3/5 bilateral lower extremities, 4/5 upper extremities. Heme/Lymphatics:??Palpation of neck reveals no swelling or tenderness of neck nodes.?? Psychiatric: Normal mood and affect. Assessment/Plan 58-year-old male with a past medical history of anxiety, depression, hypomagnesemia, acute hypoxic respiratory failure, pneumonia, JEWEL, hypothyroidism, hypertension presented to the hospital after a mechanical??fall that occurred at the sober house in which he resides. ? Diagnoses Fall (on) (from) other stairs and steps, initial encounter ??(W10.8XXA); Mechanical in nature Patient reported that he missed a step and fell on his right side but denied hitting his head or losing consciousness. CT of the head and spine revealed no acute abnormalities. Chest x-ray revealed multiple old rib fractures as described, with ORIF on the right, no definite new fractures. Patient stated that he needs to be??cleared to do stairs in order to return to the sober house.??Able to review the video of his fall -PT/OT consulted, appreciate input, recommending post acute rehab facility. ??I have discussed with??CM who has placed referrals -Fall precautions -Since admission patient has been specifically asking for oxycodone 10 mg to help with his pain, upon my evaluation??and??witnessing his evaluation??with PT he was in no acute pain or distress??and actually appears rather comfortable??at rest and with movement. ??Dario reviewed and patient??has received??a one-time prescription??after discharge from [facility]??for oxycodone??in??March 2024??otherwise this is not a chronic medication that he takes at home.?Continue with scheduled Tylenol, have added on lidocaine patch for??most affected area in his back, and okay to continue oxycodone 5 mg every 6 hours as needed for pain/discomfort. ??I would certainly not recommend??increa sing??his??narcotics at this time??as he does have a history of polysubstance abuse and is currently residing in a??sober house ?? Hypotension ??(I95.9);??resolved Benign hypertension ??(I10) Patient presented to the ED with systolic in the 80's, he??was then??administered 1L 0.9%NS with improvement, systolic stabilized in the 120s. Patient reported that within the last month has stopped taking home regimen of Amlodipine and Metoprolol, continues to experience dizziness when he stands up. -Discontinue Midodrine as blood pressure has stabilized with systolic in the 120s. -Continue to monitor blood pressure -Consider starting home regimen of Amlodipine and Metoprolol tomorrow??if blood pressures remain??elevated. ?? Acute Kidney Injury; mild N17.9 Patient creatinine upon admission was 1.25, administered 1L 0.9% NS bolus with improvement to 1.22,per chart review his typical baseline is closer to around 1.0 -Hold IV fluids at this time -Encourage PO intake, patient reported has had decreased intake of water at sober house. -Trend creatinine -Monitor I/Os ? Lung interstitial disease ??(J84.9) Mild persistent asthma without complication ??(J45.30) Cigarette nicotine dependence without complication F17.210 Patient reported that he has been smoking a pack a day for 43 years, evidence of emphysema on chestx-ray. Patient reported that he has a family history??of emphysema. He is actively??trying to quit.?? -Chest x-ray was somewhat concerning for increase in??interstitial lung disease and did show signs of emphysema, these findings are not new as he is a??smoker. ??Patient was just recently admitted and discharged and treated for pneumonia about??1 month ago, he did receive IV antibiotics??in the emergency room. ??Will hold on initiating any further antibiotics as he is afebrile, nontoxic-appearing,??no leukocytosis on labs -Continue home inhalers -Continue Varenicline 1mg to assist with nicotine cravings and withdrawal symptoms. ? History of depression ??(Z86.59) Dysthymic disorder ??(F34.1) History of anxiety ??(Z86.59) Patient expressed anxiety and depression that is managed with home regimen. -Continue Buspirone 15mg -Continue Sertraline 100mg -Continue??Chlorpromazine 200mg -Continue Duloxetine 20mg ?? Elevated cholesterol ??(E78.00) -Continue Atorvastatin ?? Acquired hypothyroidism ??(E03.9) -Continue Levothyroxine ?? Gastroesophageal reflux disease without esophagitis ??(K21.9) -Continue Pantoprazole ?? Discharge Planning:?Anticipated Discharge Disposition:?Reg DCPLAN Discharge To, Anticipated:??Long-Term Unit/Facility ?Estimated Length of Stay:?Reg DCPLAN Estimated Length of Stay:??Less than 2 Midnights ?VTE Prophylaxis:??- ?VTE Prophylaxis Assessment:??VTE Prophylaxis ordered Histories Allergies Allergies ?(Active and Proposed Allergies Only) traMADol? (Severity: Unknown severity, Onset: Unknown) ?Reactions: racing thoughts penicillins? (Severity: Unknown severity, Onset: Unknown) ?Reactions: hives aspirin? (Severity: Unknown severity, Onset: Unknown) ? Past Medical History/Problem List Active Problems(27) Anxiety disorder Anxious depression Asthma Benign hypertension Caregiver stress Claustrophobia Deep vein thrombosis (DVT) Dysphagia Dysthymic disorder Elevated cholesterol Elevated transaminase level GERD (gastroesophageal reflux disease) Hepatic steatosis History of anxiety History of depression Hypothyroidism Left rib fracture, sixth Low back pain Lower extremity pain Mild persistent asthma Odynophagia Anoxic-Ischemic Brain Injury Status post dilation of esophageal narrowing Substance use Tobacco abuse Tobacco use disorder Vitamin D deficiency ? Past Surgical History Chest X-ray: 08/20/17 ORIF of the right #4-8 rib fractures: 08/06/17 Forearm X-ray: 08/05/17 Plain X-ray ribs abnormal: 08/05/17 PFT: 06/11/17 Lung perfusion study: 02/18/17 EK02/17/17 Liver US scan: 02/17/17 Chest X-ray: 02/16/17 EK10/29/16 Cardiovascular stress testin10/23/16 EK10/22/16 Chest X-ray: 10/22/16 Appendectomy: 09/14/83 H/O inguinal hernia repair: 09/14/81 Dilatation of esophageal stricture ? Social History Alcohol Details:??Binge drinking: No. Details:??Use: Current. ??Frequency: Daily. ??Type: Beer. ??Other: 12 pack of beer. Employment/School Details:??Status: Disabled. ??Other: primary caregiver for [...] ? 20-JAN-2015 22:35:10<$> ? Medications Home Medications Acetaminophen (acetaminophen 500 mg oral tablet)?1?tab(s)?500?Milligram?By Mouth?4 times a day? NEEDED FOR PAIN FOR 10 DAYS MAX 4 TABS PER DAY Albuterol (albuterol CFC free 90 mcg/inh inhalation aerosol)?2?puff(s)?Inhalation?Every4 hours?as needed?Wheezing/Shortness of Breath Amlodipine (amLODIPine 5 mg oral tablet)?5?Milligram?By Mouth?Daily?for 30?Days Atorvastatin (atorvastatin 20 mg oral tablet)?1?tab(s)?20?Milligram?By Mouth?Daily BusPIRone (busPIRone 15 mg oral tablet)?1?tab(s)?15?Milligram?By Mouth?3 times a day ChlorproMAZINE (chlorproMAZINE 200 mg oral tablet)?1?tab(s)?200?Milligram?By Mouth?Daily at bedtime?for 30?Days Cholecalciferol (Vitamin D3 2000 intl units oral tablet)?1?tab(s)?50?Microgram?By Mouth?Daily?for 30?Days Cyanocobalamin (Vitamin B12 1000 mcg oral tablet)?1?tab(s)?1,000?Microgram?By Mouth?Daily Duloxetine (duloxetine 20 mg oral enteric coated capsule)?1?capsule?20?Milligram?By Mouth?2 times a day Gabapentin (gabapentin 600 mg oral tablet)?1?tab(s)?600?Milligram?By Mouth?3 times a day HydrOXYzine (hydrOXYzine pamoate 100 mg oral capsule)?1?capsule?100?Milligram?By Mouth?3 times a day?as needed?for anxiety?for 30?Days Levothyroxine (levothyroxine 0.025 mg oral tablet)?1?tab(s)?25?Microgram?By Mouth?Daily Lidocaine/Prilocaine Topical (lidocaine-prilocaine 2.5%-2.5% topical cream)?1?zach?Topically?Once?apply to both feet prior to appointment Meclizine (meclizine 25 mg oral tablet)?1?tab(s)?25?Milligram?By Mouth?3 times a day?as needed?for dizziness Melatonin (melatonin 5 mg oral tablet)?1?tab(s)?5?Milligram?By Mouth?Daily at bedtime?as needed?for insomnia?for 30?Days Metoprolol (metoprolol 25 mg oral tablet, extended release)?25?Milligram?By Mouth?Daily?for 30?Days Midodrine (midodrine 5 mg oral tablet)?2.5?Milligram?By Mouth?3 times a day Nicotine (nicotine 21 mg/24 hr transdermal film, extended release)?1?patch(es)?Topically?Daily?for 30?Days?Apply to skin.Leave on for 24 hours.Use for at least 3 months before tapering down. Nicotine (nicotine 4 mg oral transmucosal lozenge)?See Instructions?as needed?as needed for smoking cessation?Use 1 lozenge by mouth to replace times you regularly smoke and as needed fornicotine cravings. Place between gum and cheek until disolved, do not chew or swallow whole.May useup to 20 lozenge per day. Oxycodone (oxyCODONE 5 mg oral tablet)?TAKE 1 TABLET BY MOUTH EVERY 8 HOURS NEEDED FOR PAIN FOR 7 DAYS ONLY FOR SEVERE PAIN Pantoprazole (pantoprazole 40 mg oral delayed release tablet)?2?tab(s)?80?Milligram?By Mouth?Daily Sertraline (sertraline 100 mg oral tablet)?1.5?tab(s)?150?Milligram?By Mouth?Daily Tamsulosin (tamsulosin 0.4 mg oral capsule)?0.4?Milligram?1?capsule?By Mouth?Daily Thiamine (Vitamin B1 100 mg oral tablet)?100?Milligram?1?tablet?By Mouth?Daily?for 14?Days Tiotropium (tiotropium 1.25 mcg/inh inhalation aerosol)?2?puff(s)?2.5?Microgram?Inhalation?Daily Varenicline (varenicline 1mg tablet)?1?tab(s)?1?Milligram?By Mouth?2 times a day?Take with food and with a full glass of water ? Results Recent Labs BLOOD COUNT & DIFF WBC 8.5 k/mm3 ()?? 04/29/2024 08:32 RBC 4.54 m/mm3 (Low)?? 04/29/2024 08:32 Hgb 11.9 Gm/dL (Low)?? 04/29/2024 08:32 Hct 37.3 % (Low)?? 04/29/2024 08:32 MCV 82.2 femtoliters ()?? 04/29/2024 08:32 MCH 26.2 pg (Low)?? 04/29/2024 08:32 MCHC 31.9 g/dL (Low)?? 04/29/2024 08:32 Platelet Count 278 k/mm3 ()?? 04/29/2024 08:32 RDW-SD 50.5 femtoliters (High)?? 04/29/2024 08:32 MPV 8.6 femtoliters (Low)?? 04/29/2024 08:32 Nucleated RBC (Automated) 0.0 #/100 WBC'S ()?? 04/29/2024 08:32 Abs. NRBC 0.0 k/mm3 ()?? 04/29/2024 08:32 Abs. Neut 7.6 k/mm3 (High)?? 04/28/2024 16:45 Abs. Lymph 1.4 k/mm3 ()?? 04/28/2024 16:45 Abs. [place] 0.5 k/mm3 ()?? 04/28/2024 16:45 Abs. Eo 0.6 k/mm3 (High)?? 04/28/2024 16:45 Abs. Baso 0.1 k/mm3 ()?? 04/28/2024 16:45 Neut % 73.5 % ()?? 04/28/2024 16:45 Lymph % 13.1 % (Low)?? 04/28/2024 16:45 [place] % 5.2 % ()?? 04/28/2024 16:45 Eos % 6.0 % ()?? 04/28/2024 16:45 Baso % 1.1 % ()?? 04/28/2024 16:45 Imm Gran 1.1 % ()?? 04/28/2024 16:45 Abs. Imm Gran 0.1 k/mm3 ()?? 04/28/2024 16:45 ?? CARDIAC High Sensitivity Troponin (HSTnT) 16 ng/L ()?? 04/28/2024 18:44 ?? CHEM GENERAL Sodium 141 mmol/L ()?? 04/29/2024 08:32 Potassium 4.6 mmol/L ()?? 04/29/2024 08:32 Chloride 105 mmol/L ()?? 04/29/2024 08:32 Bicarbonate Level 25 mmol/L ()?? 04/29/2024 08:32 Anion Gap 11 ()?? 04/29/2024 08:32 Glucose Level 98 mg/dL ()?? 04/29/2024 08:32 Glucose, POC 90 mg/dL ()?? 04/29/2024 07:26 BUN 15 mg/dL ()?? 04/29/2024 08:32 Creatinine-Blood 1.22 mg/dL (High)?? 04/29/2024 08:32 Estimated GFR Creatinine 69 ML/MIN/1.73 M2 ()?? 04/29/2024 08:32 Calcium 8.5 mg/dL (Low)?? 04/29/2024 08:32 Magnesium 1.6 mg/dL ()?? 04/28/2024 16:45 Protein, Total 6.0 Gm/dL (Low)?? 04/28/2024 16:45 Albumin 3.7 Gm/dL ()?? 04/28/2024 16:45 AG Ratio 1.6 ()?? 04/28/2024 16:45 Alkaline Phosphatase 174 units/L (High)?? 04/28/2024 16:45 AST (SGOT) 18 units/L ()?? 04/28/2024 16:45 ALT (SGPT) 17 units/L ()?? 04/28/2024 16:45 Bilirubin, Total 0.2 mg/dL ()?? 04/28/2024 16:45 ?? ENDOCRINE/TUMOR MARKER TSH 1.50 uIU/mL ()?? 04/28/2024 16:45 ?? TOXICOLOGY/TDM Ethanol, Serum or Plasma NONE DETECTED mg/dL ()?? 04/28/2024 16:45 ?? URINE OTHER Est Creatinine Clearance 75.14 mL/min ()?? 04/29/2024 09:40 ?? VIROLOGY COVID-19 by RT-PCR NEGATIVE ()?? 04/28/2024 17:00 ? Abnormal Labs ?? BLOOD COUNT & DIFF Abs. Eo?0.6 k/mm3 (High)?04/28/2024 16:45 Abs. Imm Gran?0.1 k/mm3 ()?04/28/2024 16:45 Abs. NRBC?0.0 k/mm3 ()?04/29/2024 08:32 Abs. Neut?7.6 k/mm3 (High)?04/28/2024 16:45 Hct?37.3 % (Low)?04/29/2024 08:32 Hgb?11.9 Gm/dL (Low)?04/29/2024 08:32 Imm Gran?1.1 % ()?04/28/2024 16:45 Lymph %?13.1 % (Low)?04/28/2024 16:45 MCH?26.2 pg (Low)?04/29/2024 08:32 MCHC?31.9 g/dL (Low)?04/29/2024 08:32 MPV?8.6 femtoliters (Low)?04/29/2024 08:32 Nucleated RBC (Automated)?0.0 #/100 WBC'S ()?04/29/2024 08:32 RBC?4.54 m/mm3 (Low)?04/29/2024 08:32 RDW-SD?50.5 femtoliters (High)?04/29/2024 08:32 ?? CARDIAC High Sensitivity Troponin (HSTnT)?16 ng/L () ?04/28/2024 18:44 ?? CHEM GENERAL AG Ratio?1.6 ()?04/28/2024 16:45 Alkaline Phosphatase?174 units/L (High)?04/28/2024 16:45 Calcium?8.5 mg/dL (Low)?04/29/2024 08:32 Creatinine-Blood?1.22 mg/dL (High)?04/29/2024 08:32 Estimated GFR Creatinine?69 ML/MIN/1.73 M2 ()?04/29/2024 08:32 Protein, Total?6.0 Gm/dL (Low)?04/28/2024 16:45 ?? TOXICOLOGY/TDM Ethanol, Serum or Plasma?NONE DETECTED mg/dL ()?04/28/2024 16:45 ?? VIROLOGY COVID-19 by RT-PCR?NEGATIVE ()?04/28/2024 17:00 ?? Note: Critical results are displayed in red. ? Urinalysis Est Creatinine Clearance: 75.14 mL/min (09:40) Est Creatinine Clearance: 73.33 mL/min (06:57) ?? Microbiology ?? COVID-19 (Novel Coronavirus), Rapid PCR?? Completed?? Source: Nasal Body Site: Nose Collected Dt/Tm: 04/28/2024 16:17 Last Updated Dt/Tm: 04/28/2024 18:13 ? * Marina Moore: PERFORM Event Display: Admission Note Authored Date: Attestation:??Patient seen and examined at bedside today by myself, history, plan of care, and??physical exam??discussed with PA student. This note was completed with the aid of a student/resident, Ipersonally performed all components of the visit including the history of present illness, examination and medical decision making. The note has been verified for accuracy and re- documented as needed. ?? Marina Gerard PA-C 04/29/2024 EKG study * Event Display: ECG 12-Lead Authored Date: Please click on pdf link to open report * Event Display: ECG 12-Lead Authored Date: Ventricular Rate: 77 BPM Atrial Rate: 77 BPM P-R Interval: 170 ms QRS Duration: 92 ms Q-T Interval: 442 ms QTC Calculation(Bazett): 501 ms P Carmel: 54 degrees R Carm[place]: -36 degrees T [place]: 18 degrees Normal sinus rhythm Left axis deviation Prolonged QT Abnormal ECG When compared with ECG of 13-ISABEL-2024 19:34, Minimal criteria for Septal infarct are no longer Present Ventricular rate has decreased by 22 bpm QTc slightly longer now Confirmed by NINA VASQUEZ ([id number]) on 05/02/2024 8:52:35 AM [place]: NINA VASQUEZ Cardiology * Event Display: Cardiac Rhythm Strips Authored Date: * Event Display: Cardiac Rhythm Strips Authored Date: Hospital Progress note * Judith KEY, Yoana: PERFORM Event Display: Progress Note Hospital Authored Date: Patient: ??DOMINGA MURRIETA ? Age:??58 Years?Sex:??Male?:??1965?? Subjective ??no overnight event ??waiting for rehab placement Review of Systems Allergies Allergies ?(Active and Proposed Allergies Only) Egg Allergy? (Severity: Mild, Onset: Unknown) traMADol? (Severity: Unknown severity, Onset: Unknown) ?Reactions: racing thoughts penicillins? (Severity: Unknown severity, Onset: Unknown) ?Reactions: hives aspirin? (Severity: Unknown severity, Onset: Unknown) ? Objective Measurements?? Height: 185 cm (05/04/24) Weight: 80 kg (04/29/24) Dry Weight: 80 kg (04/29/24) Body Mass Index: 23.37 kg/m2 (04/29/24) ? Physical Exam GENERAL: In no apparent distress HEENT: Head normocephalic, PERRL,Moist mucous membrane. 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 PSYCHIATRIC: Calm and co-operative SKIN: Warm and dry. ? Results Recent Labs No labs resulted between 05/03/2024 00:00 and 05/04/2024 07:51? Assessment/Plan Diagnoses Fall ??(W19.XXXA) Fall (on) (from) other stairs and steps, initial encounter ??(W10.8XXA) Hypotension ??(I95.9) Lung interstitial disease ??(J84.9) Orthostatic hypotension ??(I95.1) 1. ??History of depression ??(Z86.59) 2. ??Dysthymic disorder ??(F34.1) 3. ??History of anxiety ??(Z86.59) 4. ??Benign hypertension ??(I10) 5. ??Elevated cholesterol ??(E78.00) 6. ??Acquired hypothyroidism ??(E03.9) 7. ??Gastroesophageal reflux disease without esophagitis ??(K21.9) 8. ??Mild persistent asthma without complication ??(J45.30) 9. ??Acute kidney injury ??(N17.9) 10. ??Cigarette nicotine dependence without complication ??(F17.210) ?? 58-year-old male with a past medical history of anxiety, depression, hypomagnesemia, acute hypoxic respiratory failure, pneumonia, JEWEL, hypothyroidism, hypertension presented to the hospital aftera mechanical??fall that occurred at the sober house in which he resides. ?Diagnoses Fall (on) (from) other stairs and steps, (W10.8XXA); Orthostatic hypotension (I95.1) ?Telemetry shows no arrhythmias Was positive for orthostasis. ??Orthostasis improved with IV crystalloid,??and midodrine was increased to 5 mg 3 times daily Negative for orthostatics today.?? Will continue midodrine 5 mg 3 times daily Compression stockings while out of bed Discussed about maintaining adequate oral hydration neck ?For right rib cage pain,??will give lidocaine,??scheduled high-dose Tylenol, and currently wasstarted on oxycodone, which we will continue. ??He??had asked to increase the dose of oxycodone, explained to him that??we would not recommend and would not increase??oxycodone dose, due to??significa nt??risks??of dependence and abuse ???PT recommended rehab, patient is medically ready to go to rehab when he has bed available ? Benign hypertension ??(I10) Patient presented to the ED with systolic in the 80's, he??was then??administered 1L 0.9%NS with improvement, systolic stabilized in the 120s. Patient reported that within the last month has stopped taking home regimen of Amlodipine and Metoprolol, continues to experience dizziness when he stands up. -Restarted midodrine- see above ??? Holding amlodipine and metoprolol - ?? Acute Kidney Injury; mild N17.9 Patient creatinine upon admission was 1.25, administered 1L 0.9% NS bolus with improvement to 1.22??and now improved to 1.0 ? - ?? Mild persistent asthma without complication ??(J45.30) Cigarette nicotine dependence without complication F17.210 Patient reported that he has been smoking a pack a day for 43 years, evidence of emphysema on chestx-ray. Patient reported that he has a family history??of emphysema. He is actively??trying to quit.?He was hospitalized recently for Pneumonia and discharged 03/31/2024 ??? CT chest from 03/30/2024 showed extensive bilateral groundglass opacities consistent with multifocal pneumonia, multiple borderline enlarged mediastinal and hilar lymph nodes, likely reactive ? Chest x-ray this hospitalization shows increased progression of/worsening of interstitial prominence, now moderate to severe, superimposed on hyperinflated lungs compatible with emphysema,??and reported as Significant progression of interstitial lung disease. ? Will need repeat CT chest in 8 weeks, and??will also need PFTs outpatient. Have discussed this with patient ??? Counseled on maintaining tobacco cessation, continue Chantix. ??? No acute bronchospasm ?? -Continue home inhalers ? History of depression ??(Z86.59) Dysthymic disorder ??(F34.1) History of anxiety ??(Z86.59) ?? -Continue Buspirone 15mg, sertraline, chlorpromazine and duloxetine ?? dyslipidemia (E78.00) -Continue Atorvastatin ?? Acquired hypothyroidism ??(E03.9) -Continue Levothyroxine ?? Gastroesophageal reflux disease without esophagitis ??(K21.9) -Continue Pantoprazole ?? * Shari Dow RN: VERIFY, PERFORM, SIGN Event Display: Progress Note Hospital Authored Date: [id number] Patient: DOMINGA MURRIETA Age: 58 years Sex: Male : 1965 Associated Diagnoses: None Author: Shari Dow RN Findings Problem Related to Alteration in Comfort : Alteration in Comfort/new 05/03/2024 1:00 EDT Alteration in Comfort Related to Injury Goals & Outcomes: Comfort Pt will report acceptable level of comfort & pain control, Pt will state importance of adhering to pain strategy regime, Pt will demonstrate necessary skills to manage pain, Non-verbal indicators will indicate comfort/pain control, Resolved problem, Goals/Outcomes met Interventions Implemented: Comfort Assess pain using appropriate pain scale/tools, Assess aggravating factors & prevent them accordingly, Assess alleviating factors & promote them accordingly BH Goals/Interventions, Comfort Yes Comfort, Problem Start 04/30/2024 17:38 Reviewed plan with, Comfort Patient Patient Progression, Comfort Pt progressing according to plan Comfort, Problem Ongoing Yes . Nursing Data Vital Signs : VITAL SIGNS SECTION 05/02/2024 19:52 EDT Temperature 97.8 DegF Temperature Route Oral Pulse Rate 104 bpm H Respiratory Rate 20 br/min Systolic Blood Pressure 129 mm Hg Diastolic Blood Pressure 95 mm Hg H Blood pressure sites Arm, left Mean Arterial Pressure 106 mm Hg Pulse Pressure 34 mm Hg Oxygen Saturation 96 % Mode of Delivery (Oxygen) Room air . Narrative/Incidental Pt A+Ox3, flat affect. VS stable, afebrile. 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 Lung sounds diminished, fine crackles to RLL. Pt denies any SOB/chest pain. Abd SNT, +BS. Last BM 05/01. Pt tolerating diet, denies N/V. No difficulty voiding. +pp, no edema to BLE, IRENA stockings in place. Pt complaining 04/23 pain to ribs, given scheduled tylenol and prn 5mg oxycodone with some relief. Pt requesting ibuprofen, covering FEEDER TENDER made aware and pt given 1x dose of 400mg. Pt independent with walker OOB to BR. Belongings/call weathers within reach and encouraged to use. Bed in low, locked position with 2 siderailsup. Pt remains free from injury at this time. Hourly rounding performed. Will continue to monitor pain/comfort level.. Discharge Information Rehabilitation Discharge : Rehab Discharge Index 05/01/2024 8:56 EDT Walker: distance < 10 04/29/2024 12:52 EDT Comments on treatment indicated ADL's, funct mob, safety, pt edu Full chart review completed Yes Hospital course See comment 04/29/2024 11:39 EDT Comments on treatment indicated 58 y/o male brought in from a sober house aftermechanical fall down the stairs. See for gait, stairs, therex and balance. Rec acute rehab. Walker: distance < 10 Distance pt will ambulate ~50' with RW and good balance Full chart review completed Yes Other findings Other findings Plan of care PT Gait training, Transfer training, Therapeutic exercise, Functional Activities, Balance training * Peter KEY, Joe Petty: PERFORM Event Display: Progress Note Hospital Authored Date: Patient: ??DOMINGA MURRIETA ? Age:??58 Years?Sex:??Male?:??1965?? Subjective still has dizziness on getting up from??bed,??and had significant dizziness when orthostatics were being checked ?Has had chronic right??chest wall pain ?No shortness of breath,??no productive cough ??? Has been??sober for 1 year Review of Systems ?? Constitutional- no fever, no chills HEENT- no ear pain, no tinnitus, no sore throat Respiratory- no shortness of breath?? CVS- no chest pain, no palpitations, no syncope Abdomen- no abdominal pain, nausea or vomiting Neuro- no headache, no paresthesias, no focal weakness - no dysuria, no hematuria Derm- no rash, no pruritis Objective Vital Signs?? Temperature: 98 DegF (05/01/24 11:09:00) Temperature Route: Oral (05/01/24 11:09:00) Pulse Rate: 80 bpm (05/01/24 11:09:00) Pulse Rate, Lyin bpm (05/01/24 07:32:00) Systolic Blood Pressure, Lyin mm Hg (05/01/24 07:32:00) Diastolic Blood Pressure, Lyin mm Hg (05/01/24 07:32:00) Pulse Rate, Sittin bpm (05/01/24 07:32:00) Systolic Blood Pressure, Sittin mm Hg (05/01/24 07:32:00) Diastolic Blood Pressure, Sittin mm Hg (05/01/24 07:32:00) Pulse Rate, Standin bpm (05/01/24 07:32:00) Systolic Blood Pressure, Standin mm Hg (05/01/24 07:32:00) Diastolic Blood Pressure, Standin mm Hg (05/01/24 07:32:00) Respiratory Rate: 20 br/min (05/01/24 11:09:00) Systolic Blood Pressure: 131 mm Hg (05/01/24 11:09:00) Diastolic Blood Pressure:??98 mm Hg??High (05/01/24 11:09:00) Blood pressure sites: Arm, right (05/01/24 11:09:00) Mean Arterial Pressure: 109 mm Hg (05/01/24 11:09:00) Pulse Pressure: 33 mm Hg (05/01/24 11:09:00) Oxygen Saturation: 100 % (05/01/24 11:09:00) Mode of Delivery (Oxygen): Room air (05/01/24 11:09:00) Early Warning Score: 0 (05/01/24 11:10:15) ? Physical Exam General: ??PERRLA, NAD, Moist mucus membranes Neck: No JVD, no carotid bruit CVS: Regular S1 S2, No M/R/G Resp: CTAB, no crepitations or wheezing Abdo: Soft, NT, ND, NABS, no organomegaly, no masses PARTY BUS DRIVER: AO x 3, No focal neurological deficits. Extremities: No edema, peripheral pulses palpable. _ Inpatient Medications Medications (33) Active SCHEDULED: (20) Acetaminophen 325 mg Tablet (Acetaminophen Tablet) ??975 mg, By Mouth, Every 8 hours Atorvastatin 20 mg Tablet (atorvastatin 20 mg oral tablet) ??20 mg, By Mouth, Daily BusPIRone 10 mg Tablet (busPIRone 10 mg oral tablet) ??15 mg, By Mouth, 3 times a day ChlorproMAZINE 50 mg Tablet (chlorproMAZINE 50 mg oral tablet) ??200 mg, By Mouth, Daily at bedtime Duloxetine 20 mg Capsule (DULoxetine Capsule) ??20 mg, By Mouth, 2 times a day Enoxaparin 30 mg Inj (Enoxaparin Inj) ??30 mg 0.3 mL, Subcutaneous Injection, 2 times a day Gabapentin 300 mg Capsule (gabapentin 300 mg oral capsule) ??600 mg, By Mouth, 3 times a day Levothyroxine 25 mcg Tablet (levothyroxine 0.025 mg oral tablet) ??25 mcg, By Mouth, Daily Lidocaine / Prilocaine Cream (lidocaine-prilocaine 2.5%-2.5% topical cream) ??1 application, Topically, Once Lidocaine 5% Topical Patch (Lidocaine 5% Patch) ??1 each, Topically, Daily Lidocaine 5% Topical Patch (Lidocaine 5% Patch) ??1 each, Topically, Daily Midodrine (midodrine 5 mg oral tablet) ??5 mg, By Mouth, 3 times a day NaCl 0.9% Flush 3ml (NaCL 0.9% Flush) ??3 mL, IV Push, Every 8 hours Pantoprazole 40 mg EC Tablet (pantoprazole 40 mg oral delayed release tablet) ??40 mg, By Mouth, Daily Remove Patch (Remove Lidocaine Patch) ??1 each, Topically, Daily at bedtime Remove Patch (Remove Lidocaine Patch) ??1 each, Topically, Daily at bedtime Sertraline 50 mg Tablet (sertraline 50 mg oral tablet) ??100 mg, By Mouth, Daily Tamsulosin 0.4 mg Capsule (tamsulosin 0.4 mg oral capsule) ??0.4 mg, By Mouth, Daily Thiamine 100 mg Tablet (Vitamin B1 100 mg oral tablet) ??100 mg, By Mouth, Daily Varenicline 1 mg Tablet (varenicline 1mg tablet) ??1 mg, By Mouth, 2 times a day CONTINUOUS: (1) Lactated Ringers (1000 mL) Cont IV 1,000 mL (LR 1,000 mL) ??1,000 mL, IV Infusion, 100 mL/hr PRN: (12) Albuterol 90mcg/Inhalation Inhaler HFA (albuterol CFC free 90 mcg/inh inhalation aerosol) ??180 mcg2 puffs, Inhalation, Every 4 hours Dextromethorphan-Guaifenesin 20 mg-200 mg/10 mL Liqu UD (Robitussin DM Liquid) ??10 mL, By Mouth, Every 4 hours Docusate Sodium 100 mg Capsule (Docusate Sodium Capsule) ??100 mg 1 capsule, By Mouth, 2 times a day HydrOXYzine Pamoate 25mg Capsule (hydrOXYzine pamoate 25 mg oral capsule) ??100 mg, By Mouth, 3 times a day Meclizine 12.5 mg Tablet (meclizine 12.5 mg oral tablet) ??25 mg, By Mouth, 3 times a day Melatonin 3 mg Tablet (Melatonin Tablet) ??3 mg, By Mouth, Daily at bedtime NaCl 0.9% Flush 3ml (NaCL 0.9% Flush) ??3 mL, IV Push, Every 8 hours OxyCODONE 5 mg IR Tablet (oxyCODONE 5 mg oral tablet) ??5 mg, By Mouth, Every 6 hours Polyethylene Glycol 17 Gm Powder (MiraLax Powder) ??17 Gm 1 pack/packet, By Mouth, Daily Senna Tablet ??8.6 mg 1 tablet, By Mouth, 2 times a day Simethicone 80 mg Chewable Tablet (Simethicone Tablet) ??80 mg, Chew, 3 times a day Tizanidine 4 mg Tablet (tiZANidine 4 mg oral tablet) ??2 mg, By Mouth, 3 times a day ? Assessment/Plan 58-year-old male with a past medical history of anxiety, depression, hypomagnesemia, acute hypoxic respiratory failure, pneumonia, JEWEL, hypothyroidism, hypertension presented to the hospital after a mechanical??fall that occurred at the sober house in which he resides. ? Diagnoses Fall (on) (from) other stairs and steps, (W10.8XXA); Orthostatic hypotension (I95.1) ?Telemetry shows no arrhythmias ???His orthostatic symptoms and orthostatic vitals were +04/30. ??Gave IV fluids, recheck orthostatics today??are still positive and he is quite symptomatic.?? W . ???Will give another liter of IV crystalloids, and had restarted midodrine 04/30, will increase midodrine to??5 mg 3 times daily,??from 2.5 Mg 3 times daily.?? Compression stockings., - alcoholic polyneuropathy and autonomic dysfunction may be the likely etiology ?For right rib cage pain,??will give lidocaine,??scheduled high-dose Tylenol, and currently wasstarted on oxycodone, which we will continue. ??He??had asked to increase the dose of oxycodone, explained to him that??we would not recommend and would not increase??oxycodone dose, due to??significa nt??risks??of dependence and abuse ???PT recommended rehab ? Benign hypertension ??(I10) Patient presented to the ED with systolic in the 80's, he??was then??administered 1L 0.9%NS with improvement, systolic stabilized in the 120s. Patient reported that within the last month has stopped taking home regimen of Amlodipine and Metoprolol, continues to experience dizziness when he stands up. -Restarted midodrine- see above ??? Holding amlodipine and metoprolol - ?? Acute Kidney Injury; mild N17.9 Patient creatinine upon admission was 1.25, administered 1L 0.9% NS bolus with improvement to 1.22??and now improved to 1.0 ? Given his orthostatic hypotension, gave further IVF - ?? Mild persistent asthma without complication ??(J45.30) Cigarette nicotine dependence without complication F17.210 Patient reported that he has been smoking a pack a day for 43 years, evidence of emphysema on chestx-ray. Patient reported that he has a family history??of emphysema. He is actively??trying to quit.?He was hospitalized recently for Pneumonia and discharged 03/31/2024 ??? CT chest from 03/30/2024 showed extensive bilateral groundglass opacities consistent with multifocal pneumonia, multiple borderline enlarged mediastinal and hilar lymph nodes, likely reactive ? Chest x-ray this hospitalization shows increased progression of/worsening of interstitial prominence, now moderate to severe, superimposed on hyperinflated lungs compatible with emphysema,??and reported as Significant progression of interstitial lung disease. ? Will need repeat CT chest in 8 weeks, and??will also need PFTs outpatient. Have discussed this with patient ??? Counseled on maintaining tobacco cessation, continue Chantix. ??? No acute bronchospasm ?? -Continue home inhalers ? History of depression ??(Z86.59) Dysthymic disorder ??(F34.1) History of anxiety ??(Z86.59) ?? -Continue Buspirone 15mg, sertraline, chlorpromazine and duloxetine ?? dyslipidemia (E78.00) -Continue Atorvastatin ?? Acquired hypothyroidism ??(E03.9) -Continue Levothyroxine ?? Gastroesophageal reflux disease without esophagitis ??(K21.9) -Continue Pantoprazole ? Discharge Planning:?Anticipated Discharge Disposition:?:??Long-Term Unit/Facility ? Code status- full code ?? OMN???persistent orthostatic hypotension, increasing midodrine, further IVF.?Spoke to CM also to work on obtaining rehab placement ? Note * Lakesha Anderson RN: PERFORM Event Display: Discharge/Transfer Note Hospital Authored Date: [id number] Nursing Discharge Note Entered On: 05/04/2024 18:00 EDT Performed On: 05/04/2024 18:00 EDT by Lakesha Anderson RN Nursing Discharge Note 2 Discharge Time : 05/04/2024 18:00 EDT Discharge Level of Care at Discharge : detention facility Discharge Nursing Homes/Rehab Facilities : [facility] Patient Left Unit Via : Wheelchair Patient Accompanied Off Unit with : Ambulance/Chair Van Personnel Handover Given to Transport Personnel : Yes DC Instructions Provided & Signed by Pt : Yes Patient Understands D/C Instructions : Yes Patient Instructions Discharge Signed : Yes Did Pt have Specialty Bed or Wound Vac : No Lakesha Anderson RN - 05/04/2024 18:00 EDT * Yoana Wong MD: PERFORM Event Display: Discharge/Transfer Note Hospital Authored Date: Patient: ??DOMINGA MURRIETA ? Age:??58 Years?Sex:??Male?:??1965?? Patient Information Discharge Location: [facility] Primary Care Physician: Sergey Archer MD Admit Date/Time: 04/28/24 23:26 Discharge Disposition Discharge Disposition: Long-Term Facility/Rehab Discharge Diagnosis History of depression (Z86.59) Dysthymic disorder (F34.1) History of anxiety (Z86.59) Benign hypertension (I10) Elevated cholesterol (E78.00) Acquired hypothyroidism (E03.9) Gastroesophageal reflux disease without esophagitis (K21.9) Mild persistent asthma without complication (J45.30) Acute kidney injury (N17.9) Cigarette nicotine dependence without complication (F17.210) Fall (W19.XXXA) Hypotension (I95.9) Lung interstitial disease (J84.9) Fall (on) (from) other stairs and steps, initial encounter (W10.8XXA) Orthostatic hypotension (I95.1) _ Discharge Medications Acetaminophen (acetaminophen 500 mg oral tablet)?1?tab(s)?500?Milligram?By Mouth?4 times a day? NEEDED FOR PAIN FOR 10 DAYS MAX 4 TABS PER DAY Albuterol (albuterol CFC free 90 mcg/inh inhalation aerosol)?2?puff(s)?Inhalation?Every4 hours?as needed?Wheezing/Shortness of Breath Atorvastatin (atorvastatin 20 mg oral tablet)?1?tab(s)?20?Milligram?By Mouth?Daily BusPIRone (busPIRone 15 mg oral tablet)?1?tab(s)?15?Milligram?By Mouth?3 times a day ChlorproMAZINE (chlorproMAZINE 200 mg oral tablet)?1?tab(s)?200?Milligram?By Mouth?Daily at bedtime?for 30?Days Cholecalciferol (Vitamin D3 2000 intl units oral tablet)?1?tab(s)?50?Microgram?By Mouth?Daily?for 30?Days Cyanocobalamin (Vitamin B12 1000 mcg oral tablet)?1?tab(s)?1,000?Microgram?By Mouth?Daily Duloxetine (duloxetine 20 mg oral enteric coated capsule)?1?capsule?20?Milligram?By Mouth?2 times a day Gabapentin (gabapentin 600 mg oral tablet)?1?tab(s)?600?Milligram?By Mouth?3 times a day HydrOXYzine (hydrOXYzine pamoate 100 mg oral capsule)?1?capsule?100?Milligram?By Mouth?3 times a day?as needed?for anxiety?for 30?Days Levothyroxine (levothyroxine 0.025 mg oral tablet)?1?tab(s)?25?Microgram?By Mouth?Daily Lidocaine/Prilocaine Topical (lidocaine-prilocaine 2.5%-2.5% topical cream)?1?zach?Topically?Once?apply to both feet prior to appointment Meclizine (meclizine 25 mg oral tablet)?1?tab(s)?25?Milligram?By Mouth?3 times a day?as needed?for dizziness Melatonin (melatonin 5 mg oral tablet)?1?tab(s)?5?Milligram?By Mouth?Daily at bedtime?as needed?for insomnia?for 30?Days Midodrine (midodrine 5 mg oral tablet)?5?Milligram?By Mouth?3 times a day?Hold for SBP >140 Avoid giving at bedtime Nicotine (nicotine 21 mg/24 hr transdermal film, extended release)?1?patch(es)?Topically?Daily?for 30?Days?Apply to skin.Leave on for 24 hours.Use for at least 3 months before tapering down. Nicotine (nicotine 4 mg oral transmucosal lozenge)?See Instructions?as needed?as needed for smoking cessation?Use 1 lozenge by mouth to replace times you regularly smoke and as needed fornicotine cravings. Place between gum and cheek until disolved, do not chew or swallow whole.May useup to 20 lozenge per day. Oxycodone (oxyCODONE 5 mg oral tablet)?TAKE 1 TABLET BY MOUTH EVERY 8 HOURS NEEDED FOR PAIN FOR 7 DAYS ONLY FOR SEVERE PAIN Pantoprazole (pantoprazole 40 mg oral delayed release tablet)?2?tab(s)?80?Milligram?By Mouth?Daily Sertraline (sertraline 100 mg oral tablet)?1.5?tab(s)?150?Milligram?By Mouth?Daily Tamsulosin (tamsulosin 0.4 mg oral capsule)?0.4?Milligram?1?capsule?By Mouth?Daily Thiamine (Vitamin B1 100 mg oral tablet)?100?Milligram?1?tablet?By Mouth?Daily?for 14?Days Varenicline (varenicline 1mg tablet)?1?tab(s)?1?Milligram?By Mouth?2 times a day?Take with food and with a full glass of water ? Quality Measures Tobacco Use Treatment:? Durable Medical Equipment Discharge recommendations: Rehab (04/29/24) Name of Agency #1: [facility] (03/31/24) Agency [employer] [facility]1: admissions (05/04/24) Service Categories #1: Occupational Therapy, Physical Therapy, Long-Term, Continuous Improvement Manager (05/04/24) [facility] Comments [facility] Ambulatory devices needed: Walker (05/03/24) ? Medications Started midodrine increased to 5 mg?? TID Allergies Allergies ?(Active and Proposed Allergies Only) Egg Allergy? (Severity: Mild, Onset: Unknown) traMADol? (Severity: Unknown severity, Onset: Unknown) ?Reactions: racing thoughts penicillins? (Severity: Unknown severity, Onset: Unknown) ?Reactions: hives aspirin? (Severity: Unknown severity, Onset: Unknown) ? Objective Assessment and Plan ?? 58-year-old male with a past medical history of anxiety, depression, hypomagnesemia, acute hypoxic respiratory failure, pneumonia, JEWEL, hypothyroidism, hypertension presented to the hospital after a mechanical??fall that occurred at the sober house in which he resides. ?Diagnoses Fall (on) (from) other stairs and steps, (W10.8XXA); Orthostatic hypotension (I95.1) ?Telemetry shows no arrhythmias Was positive for orthostasis. ??Orthostasis improved with IV crystalloid,??and midodrine was increased to 5 mg 3 times daily Negative for orthostatics today.?? Will continue midodrine 5 mg 3 times daily Compression stockings while out of bed Discussed about maintaining adequate oral hydration neck ?For right rib cage pain,??will give lidocaine,??scheduled high-dose Tylenol, and currently wasstarted on oxycodone, which we will continue. ??He??had asked to increase the dose of oxycodone, explained to him that??we would not recommend and would not increase??oxycodone dose, due to??significa nt??risks??of dependence and abuse ???PT recommended rehab, patient is medically ready to go to rehab when he has bed available ? Benign hypertension ??(I10) Patient presented to the ED with systolic in the 80's, he??was then??administered 1L 0.9%NS with improvement, systolic stabilized in the 120s. Patient reported that within the last month has stopped taking home regimen of Amlodipine and Metoprolol, continues to experience dizziness when he stands up. -Restarted midodrine- see above ??? Holding amlodipine and metoprolol - ?? Acute Kidney Injury; mild N17.9 Patient creatinine upon admission was 1.25, administered 1L 0.9% NS bolus with improvement to 1.22??and now improved to 1.0 ? - ?? Mild persistent asthma without complication ??(J45.30) Cigarette nicotine dependence without complication F17.210 Patient reported that he has been smoking a pack a day for 43 years, evidence of emphysema on chestx-ray. Patient reported that he has a family history??of emphysema. He is actively??trying to quit.?He was hospitalized recently for Pneumonia and discharged 03/31/2024 ??? CT chest from 03/30/2024 showed extensive bilateral groundglass opacities consistent with multifocal pneumonia, multiple borderline enlarged mediastinal and hilar lymph nodes, likely reactive ? Chest x-ray this hospitalization shows increased progression of/worsening of interstitial prominence, now moderate to severe, superimposed on hyperinflated lungs compatible with emphysema,??and reported as Significant progression of interstitial lung disease. ? Will need repeat CT chest in 8 weeks, and??will also need PFTs outpatient. Have discussed this with patient ??? Counseled on maintaining tobacco cessation, continue Chantix. ??? No acute bronchospasm ?? -Continue home inhalers ? History of depression ??(Z86.59) Dysthymic disorder ??(F34.1) History of anxiety ??(Z86.59) ?? -Continue Buspirone 15mg, sertraline, chlorpromazine and duloxetine ?? dyslipidemia (E78.00) -Continue Atorvastatin ?? Acquired hypothyroidism ??(E03.9) -Continue Levothyroxine ?? Gastroesophageal reflux disease without esophagitis ??(K21.9) -Continue Pantoprazole ? . Physical Exam GENERAL: In no apparent distress HEENT: Head normocephalic, PERRL,Moist mucous membrane. 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 Pending Results No Pending Results Patient Education Titles WebMD Ignite Patient Education - Understanding Orthostatic Hypotension?? Web[employer] Ignite Patient Education - Zones Living Smoke Free?? Follow-Up Appointments Added Follow Up ?Time Frame ?Comments Gianni KEY, Sergey Novak?1 to 2 weeks Post Discharge Care Discharge Prescriptions ?None, 05/02/24 12:42:00 EDT Home Health Face to Face ^HomeHealthFTF Results Discharge Labs BLOOD COUNT & DIFF WBC 6.6 k/mm3 ()?? 05/01/2024 00:21 RBC 4.91 m/mm3 ()?? 05/01/2024 00:21 Hgb 12.6 Gm/dL (Low)?? 05/01/2024 00:21 Hct 40.1 % (Low)?? 05/01/2024 00:21 MCV 81.7 femtoliters ()?? 05/01/2024 00:21 MCH 25.7 pg (Low)?? 05/01/2024 00:21 MCHC 31.4 g/dL (Low)?? 05/01/2024 00:21 Platelet Count 277 k/mm3 ()?? 05/01/2024 00:21 RDW-SD 47.1 femtoliters (High)?? 05/01/2024 00:21 MPV 8.5 femtoliters (Low)?? 05/01/2024 00:21 Nucleated RBC (Automated) 0.0 #/100 WBC'S ()?? 05/01/2024 00:21 Abs. NRBC 0.0 k/mm3 ()?? 05/01/2024 00:21 Abs. Neut 4.0 k/mm3 ()?? 05/01/2024 00:21 Abs. Lymph 1.4 k/mm3 ()?? 05/01/2024 00:21 Abs. [place] 0.5 k/mm3 ()?? 05/01/2024 00:21 Abs. Eo 0.6 k/mm3 (High)?? 05/01/2024 00:21 Abs. Baso 0.1 k/mm3 ()?? 05/01/2024 00:21 Neut % 61.5 % ()?? 05/01/2024 00:21 Lymph % 20.8 % ()?? 05/01/2024 00:21 [place] % 7.2 % ()?? 05/01/2024 00:21 Eos % 8.5 % (High)?? 05/01/2024 00:21 Baso % 1.4 % ()?? 05/01/2024 00:21 Imm Gran 0.6 % ()?? 05/01/2024 00:21 Abs. Imm Gran 0.0 k/mm3 ()?? 05/01/2024 00:21 ?? CARDIAC High Sensitivity Troponin (HSTnT) 16 ng/L ()?? 04/28/2024 18:44 ? CHEM GENERAL Sodium 138 mmol/L ()?? 05/01/2024 00:21 Potassium 4.4 mmol/L ()?? 05/01/2024 00:21 Chloride 101 mmol/L ()?? 05/01/2024 00:21 Bicarbonate Level 23 mmol/L ()?? 05/01/2024 00:21 Anion Gap 14 ()?? 05/01/2024 00:21 Glucose Level 88 mg/dL ()?? 05/01/2024 00:21 Glucose, POC 90 mg/dL ()?? 04/29/2024 07:26 BUN 19 mg/dL ()?? 05/01/2024 00:21 Creatinine-Blood 1.30 mg/dL (High)?? 05/01/2024 00:21 Estimated GFR Creatinine 64 ML/MIN/1.73 M2 ()?? 05/01/2024 00:21 Calcium 9.2 mg/dL ()?? 05/01/2024 00:21 Magnesium 1.6 mg/dL ()?? 04/28/2024 16:45 Protein, Total 6.0 Gm/dL (Low)?? 04/28/2024 16:45 Albumin 3.7 Gm/dL ()?? 04/28/2024 16:45 AG Ratio 1.6 ()?? 04/28/2024 16:45 Alkaline Phosphatase 174 units/L (High)?? 04/28/2024 16:45 AST (SGOT) 18 units/L ()?? 04/28/2024 16:45 ALT (SGPT) 17 units/L ()?? 04/28/2024 16:45 Bilirubin, Total 0.2 mg/dL ()?? 04/28/2024 16:45 ? ENDOCRINE/TUMOR MARKER TSH 1.50 uIU/mL ()?? 04/28/2024 16:45 ? TOXICOLOGY/TDM Ethanol, Serum or Plasma NONE DETECTED mg/dL ()?? 04/28/2024 16:45 ? URINE OTHER Est Creatinine Clearance 70.51 mL/min ()?? 05/01/2024 02:11 ? VIROLOGY COVID-19 by RT-PCR NEGATIVE ()?? 04/28/2024 17:00 ? 35_ minutes spent on discharge * Joceline Montenegro RN: PERFORM, SIGN, VERIFY Event Display: Case Management Discharge Plan Authored Date: [id number] Patient: DOMINGA MURRIETA Age: 58 years Sex: Male : 1965 Associated Diagnoses: None Author: Joceline Montenegro RN Discharge Plan Case Management Discharge Plan : Case Management Discharge Plan Data 05/04/2024 15:01 EDT Discharge Level of Care at Discharge detention facility Discharge Nursing Homes/Rehab Facilities [facility] Discharge Transportation Arranged [facility] [address] [facility] [phone] Discharge Arranged Transport Date/Time 05/04/2024 17:00 Mode of Transportation Arranged [facility] Agency [employer] [facility] admissions Service Categories #1 Occupational Therapy, Physical Therapy, Long-Term, Continuous Improvement Manager Service Comments [facility]1 [facility] 04/29/2024 13:38 EDT Discharge Nursing Homes/Rehab Facilities [facility] * Lakesha Anderson RN: PERFORM Event Display: Patient Education/Instruction Authored Date: [id number] Inpatient Adult Discharge Instructions. [address] [address] Name: DOMINGA MURRIETA : 1965?? Visit: 04/28/2024 23:26?? Current Date: 05/04/2024 16:37 ?? Account: [id number]?? Inpatient Adult Discharge Instructions We would like [...] and their families. Surveys are administered by [employer] ?? If further treatment with your primary care physician or another doctor is recommended, it is important for you to keep the appointment. Call your primary care physician or return to the Emergency Department immediately if your condition worsens, fails to improve, or new symptoms develop. If you need to find a doctor, you can call [facility] Link for a referral at [phone] or toll free at [phone] or log in to [email or web address].. ?? [facility], in keeping with [facility] guidance, no longer requires face masks for staff, patientsor visitors in most situations. Similiar to time spent indoors at other locations, there is the chance that you were exposed to repiratory viruses during your time with us (such as flu or COVID-19). If you develop symptoms concerning for a viral respiratory infection, please seek testing (and treatment if indicated) from your medical provider or home test kit. ?? You can view and manage your care through the patient portal or by using a health care zach of your choosing. [employer] is a website that allows you to securely view your medical information including your hospital discharge summary, office visit summaries, medications and follow-up visits. You can also request appointments, renew medications, and request access to your medical information using a health care zach of your choosing, or just ask a question. You can enroll at [email or web address] or register during your next office visit. You have been discharged from [facility], Patient Care Unit: D3B??. If you have any questions regarding these instructions, including results of studies pending, afteryou leave, please call us and we will be happy to assist you 06/04. [facility] Your Care Team Attending Physician Yoana Wong MD?? Consulting Providers Yoana Wong MD?? Discharging Providers Yoana Wong MD Reason for Your Visit From [facility], pt endorses weakness & tremors since this morning - feels like when I had pneumonia . was walking down the stairs, pt states he lost conciousness for a few seconds. no thinners.R rib pain. L knee pain. refused c-collar?? Your Diagnosis History of depression Dysthymic disorder History of anxiety Benign hypertension Elevated cholesterol Acquired hypothyroidism Gastroesophageal reflux disease without esophagitis Mild persistent asthma without complication Acute kidney injury Cigarette nicotine dependence without complication Fall (on) (from) other stairs and steps, initial encounter Orthostatic hypotension Tests Performed Below is a partial list of the tests performed during your hospitalization. You may have had other tests and procedures not included in this list. Please discuss all test results with your provider. Alcohol Level Basic Metabolic Panel BUN Calcium Level CBC CBC w/ Differential Comprehensive Metabolic Panel COVID-19 (Novel Coronavirus), Rapid PCR Creatinine Electrolytes Glucose Level GLUCOSE POC High??Sensitivity??Troponin T Magnesium Level Troponin T, High Sensitivity TSH with T4 Reflex (Adults Only) CT Cervical Spine W/O Contrast CT Head/Brain W/O Contrast XR Ribs W/ PA Chest Right BUN?? Basic Metabolic Panel?? CBC?? CBC w/ Differential?? COVID-19 (Novel Coronavirus), Rapid PCR?? CT Cervical Spine W/O Contrast?? CT Head/Brain W/O Contrast?? Calcium Level?? Comprehensive Metabolic Panel?? Creatinine?? Electrolytes?? Ethanol Level (Alcohol Level)?? Glucose Level?? Glucose POC?? High??Sensitivity??Troponin T (Troponin T, High Sensitivity)?? Magnesium Level?? TSH with T4 Reflex (Adults Only)?? Ribs W/ PA Chest Right (XR Ribs W/ PA Chest Right)?? Primary Care Provider Sergey Archer MD? Advance Directive Health Care Proxy on File Yes - Health Care Proxy Discharge Vitals Temperature: 97.2 DegF Height: 185 cm Pulse Rate: 82 bpm Weight: 80 kg Respiratory Rate: 18 br/min Body Mass Index: 23.37 kg/m2 Systolic Blood Pressure: 118 mm Hg Body surface area: 2.03 Diastolic Blood Pressure: 77 mm Hg ?? Oxygen Saturation: 95 % ?? Studies Pending All studies ordered during this hospital stay have been completed unless listed below. Please discuss all pending results with your provider listed above in these instructions. ?? No incomplete studies found?? What to do next Instructions From Your Doctor ?? Orders? 05/04/24 16:35:00 EDT?? Prescriptions??, ??05/02/24 12:42:00 EDT?? You Need to Schedule the Following Appointments Follow Up with??Sergey Archer MD When:??Within 1 to 2 weeks, only if needed Where: [address] [place] [address]- Discharge Medications DOMINGA MURRIETA :1965 Visit Date:04/28/2024 Medications: Please continue your medications until treatment is completed or stopped by your provider. Medications not listed below should be discontinued. Discuss any questions related to medications with your provider. What How Much When Instructions Next Dose Changed Midodrine (midodrine 5 mg oral tablet) 5 Milligram Oral 3 times a day Hold for SBP >140 Avoid giving at bedtime ?? 05/04 9pm Unchanged Acetaminophen (acetaminophen 500 mg oral tablet) 1 tab(s) Oral 4 times a day NEEDED FOR PAIN FOR 10 DAYS MAX 4 TABS PER DAY ?? as needed Unchanged Albuterol (albuterol CFC free 90 mcg/ inh inhalation aerosol) 2 puff(s) Inhalation Every 4 hours as needed for Wheezing/Shortness of Breath as needed Unchanged Atorvastatin (atorvastatin 20 mg oral tablet) 1 tab(s) Oral Daily 05/04 9pm Unchanged BusPIRone (busPIRone 15 mg oral tablet) 1 tab(s) Oral 3 times a day 05/04 9pm Unchanged ChlorproMAZINE (chlorproMAZINE 200 mg oral tablet) 1 tab(s) Oral Daily at Bedtime Duration: 30 Days 05/04 9pm Unchanged Cholecalciferol (Vitamin D3 2000 intl units oral tablet) 1 tab(s) Oral Daily Duration: 30 Days 05/05 9am Unchanged Cyanocobalamin (Vitamin B12 1000 mcg oral tablet) 1 tab(s) Oral Daily 05/05 9am Unchanged Duloxetine (duloxetine 20 mg oral enteric coated capsule) 1 capsule Oral Twice a day 05/04 9pm Unchanged Gabapentin (gabapentin 600 mg oral tablet) 1 tab(s) Oral 3 times a day 05/04 9pm Unchanged HydrOXYzine (hydrOXYzine pamoate 100 mg oral capsule) 1 capsule Oral 3 times a day as needed for for anxiety Duration: 30 Days as needed Unchanged Levothyroxine (levothyroxine 0.025 mg oral tablet) 1 tab(s) Oral Daily 05/05 7 am Unchanged Lidocaine/ Prilocaine Topical (lidocaine-prilocaine 2.5%-2.5% topical cream) 1 zach Topically Once apply to both feet prior to appointment ?? as needed Unchanged Meclizine (meclizine 25 mg oral tablet) 1 tab(s) Oral 3 times a day as needed for for dizziness 05/04 9pm Unchanged Melatonin (melatonin 5 mg oral tablet) 1 tab(s) Oral Daily at Bedtime as needed for for insomnia Duration: 30 Days 05/04 bedtime Unchanged Nicotine (nicotine 21 mg/ 24 hr transdermal film, extended release) 1 patch(es) Topically Daily Duration: 30 Days Apply to skin. Leave on for 24 hours. Use for at least 3 months before tapering down. ?? 05/05 9am Unchanged Nicotine (nicotine 4 mg oral transmucosal lozenge) See instructions Use 1 lozenge by mouth to replace times you regularly smoke and as needed for nicotine cravings. Place between gum and cheek until disolved, do not chew or swallow whole. May use up to 20 lozenge per day., As needed for as needed for smoking cessation ?? Unchanged Oxycodone (oxyCODONE 5 mg oral tablet) TAKE 1 TABLET BY MOUTH EVERY 8 HOURS NEEDED FOR PAIN FOR 7 DAYS ONLY FOR SEVERE PAIN ?? 05/04 11pm Unchanged Pantoprazole (pantoprazole 40 mg oral delayed release tablet) 2 tab(s) Oral Daily 05/05 9am Unchanged Sertraline (sertraline 100 mg oral tablet) 1.5 tab(s) Oral Daily 05/05 9am Unchanged Tamsulosin (tamsulosin 0.4 mg oral capsule) 1 capsule Oral Daily 05/05 9am Unchanged Thiamine (Vitamin B1 100 mg oral tablet) 1 tab(s) Oral Daily Duration: 14 Days 05/05 9am Unchanged Varenicline (varenicline 1mg tablet) 1 tab(s) Oral Twice a day Take with food and with a full glass of water ?? 05/04 9pm ?? What How Much When Comments Stop Taking Amlodipine (amLODIPine 5 mg oral tablet) 5 Milligram Oral Daily Duration: 30 Days Stop Taking Metoprolol (metoprolol 25 mg oral tablet, extended release) 25 Milligram Oral Daily Duration: 30 Days Stop Taking Tiotropium (tiotropium 1.25 mcg/ inh inhalation aerosol) 2 puff(s) Inhalation Daily Prescription Given During Visit No new medications prescribed at time of discharge.?? Laboratory Results Below is a partial list of the most recent Laboratory test results done prior to this discharge. You may have had other tests and procedures not included in this list. Please discuss all test resultswith your provider. Est Creatinine Clearance - 70.51 mL/min (05/01/2024) Alcohol Level (04/28/2024) ???Ethanol, Serum or Plasma - NONE DETECTED Basic Metabolic Panel (04/29/2024) ???Sodium - 141 mmol/L???Potassium - 4.6 mmol/L???Chloride - 105 mmol/L???Bicarbonate Level - 25 mmol/L???Anion Gap - 11???Glucose Level - 98 mg/dL???BUN - 15 mg/dL???Creatinine-Blood - 1.22 mg/dL???Estimated GFR Creatinine - 69 ML/MIN/1.73 M2???Calcium - 8.5 mg/dL BUN (05/01/2024) ???BUN - 19 mg/dL Calcium Level (05/01/2024) ???Calcium - 9.2 mg/dL CBC (04/30/2024) ???WBC - 7.1 k/mm3???RBC - 4.58 m/mm3???Hgb - 11.9 Gm/dL???Hct - 38.1 %???MCV - 83.2 femtoliters???MCH - 26.0 pg???MCHC - 31.2 g/dL???Platelet Count - 288 k/mm3???RDW-SD - 50.3 femtoliters???MPV - 8.9 femtoliters???Nucleated RBC (Automated) - 0.0 #/100 WBC'S???Abs. NRBC - 0.0 k/mm3 CBC w/ Differential (05/01/2024) ???WBC - 6.6 k/mm3???RBC - 4.91 m/mm3???Hgb - 12.6 Gm/dL???Hct - 40.1 %???MCV - 81.7 femtoliters???MCH - 25.7 pg???MCHC - 31.4 g/dL???Platelet Count - 277 k/mm3???RDW-SD - 47.1 femtoliters???MPV - 8.5 femtoliters???Nucleated RBC (Automated) - 0.0 #/100 WBC'S???Abs. NRBC - 0.0 k/mm3???Abs. Neut - 4.0 k/mm3???Abs. Lymph - 1.4 k/mm3???Abs. [place] - 0.5 k/mm3???Abs. Eo - 0.6 k/mm3???Abs. Baso - 0.1 k/mm3???Neut % - 61.5 %???Lymph % - 20.8 %???[place] % - 7.2 %???Eos % - 8.5 %???Baso % - 1.4 %???Imm Gran- 0.6 %???Abs. Imm Gran - 0.0 k/mm3 Comprehensive Metabolic Panel (04/28/2024) ???Sodium - 140 mmol/L???Potassium - 4.3 mmol/L???Chloride - 104 mmol/L???Bicarbonate Level - 24 mmol/L???Anion Gap - 12???Glucose Level - 179 mg/dL???BUN - 17 mg/dL???Creatinine-Blood - 1.25 mg/dL???Estimated GFR Creatinine - 67 ML/MIN/1.73 M2???Calcium - 8.7 mg/dL???Protein, Total - 6.0 Gm/dL???Albumin - 3.7 Gm/dL???AG Ratio - 1.6???Alkaline Phosphatase - 174 units/L???AST (SGOT) - 18 units/L???ALT (SGPT) - 17 units/L???Bilirubin, Total - 0.2 mg/dL COVID-19 (Novel Coronavirus), Rapid PCR (04/28/2024) ???COVID-19 by RT-PCR - NEGATIVE Creatinine (05/01/2024) ???Creatinine-Blood - 1.30 mg/dL???Estimated GFR Creatinine - 64 ML/MIN/1.73 M2 Electrolytes (05/01/2024) ???Sodium - 138 mmol/L???Potassium - 4.4 mmol/L???Chloride - 101 mmol/L???Bicarbonate Level - 23 mmol/L???Anion Gap - 14 Glucose Level (05/01/2024) ???Glucose Level - 88 mg/dL GLUCOSE POC (04/29/2024) ???Glucose, POC - 90 mg/dL High??Sensitivity??Troponin T (04/28/2024) ???High Sensitivity Troponin (HSTnT) - 16 ng/L Magnesium Level (04/28/2024) ???Magnesium - 1.6 mg/dL Troponin T, High Sensitivity (04/28/2024) ???High Sensitivity Troponin (HSTnT) - 16 ng/L TSH with T4 Reflex (Adults Only) (04/28/2024) ???TSH - 1.50 uIU/mL You will be contacted within 72 hours with your results. Allergies (NKA means No Known Allergies) Egg Allergy aspirin penicillins??(hives) traMADol??(racing thoughts) Problems Active Problems??(27) Anxiety disorder?? Anxious depression?? Asthma?? Benign hypertension?? Caregiver stress?? Claustrophobia?? Deep vein thrombosis (DVT)?? Dysphagia?? Dysthymic disorder?? Elevated cholesterol?? Elevated transaminase level?? GERD (gastroesophageal reflux disease)?? Hepatic steatosis?? History of anxiety?? History of depression?? Hypothyroidism?? Left rib fracture, sixth?? Low back pain?? Lower extremity pain?? Mild persistent asthma?? Odynophagia?? Anoxic-Ischemic Brain Injury?? Status post dilation of esophageal narrowing?? Substance use?? Tobacco abuse?? Tobacco use disorder?? Vitamin D deficiency?? Education Materials Below is the list of Educational Leaflet Providered with your Discharge Instructions. [employer] Patient Education - Understanding Orthostatic Hypotension?? [employer] Patient Education - Zones Living Smoke Free?? Valuables and Belongings I fully understand and agree that [facility] accepts no responsibility for all my [...] to send valuables and belongings home. ?? Date for Pt to Sign Valuables/Belongings: 04/29/24 01:44:00 ?? Other Discharge Information ? Case Management Discharge Plan?? Discharge Plan?? Discharge Agency Information?? Discharge Level of Care at Discharge: detention facility Agency [employer] #1: admissions Discharge Rx Program: Discharge Prescription Program Service Categories #1: Occupational Therapy, Physical Therapy, Long-Term, Continuous Improvement Manager Discharge Transportation Arranged: [facility] [address] [facility] [id number] [phone] Service Comments #1: [facility] Mode of Transportation Arranged: Chair Van ?? Discharge Arranged Transport Date/Time: 05/04/24 17:00:00 ?? Discharge Nursing Homes/Rehab Facilities: [facility] ? Pulmonary Rehab Status?? Pulmonary Rehab Discharge [...] are strongly encouraged to quit. Please call [employer] at [phone] or [phone]) or log in to [email or web address] for referrals to smoking cessation programs. ?? 988 Suicide & Crisis Lifeline is available 06/04 if you or someone you know needs to find a reason to keep living. By calling 088 you'll be connected to a skilled, trained counselor at a crisis center in your area. INPATIENT DISCHARGE INSTRUCTIONS SIGNATURE PAGE DOMINGA MURRIETA Location:[facility] Registration Date and Time:04/28/2024 23:26 EDT Primary Care Physician: Gianni KEY, Sergey Novak, Attending Physician: Judith KEY, Yoana, I DOMINGA MURRIETA, have received the above patient education materials/instructions and have verbalized understanding. If ambulance or transport services are being used I further acknowledge being given a choice of service. ?? If you need to contact me, please call me at this number: . Patient/Diet Counselor Name: Patient/Diet Counselor Signature: Relationship to Patient: Witness Name/Signature: Date: * Yoana Wong MD: PERFORM Event Display: Discharge/Transfer Note Hospital Authored Date: [id number] Patient: ??DOMINGA MURRIETA ? Age:??58 Years?Sex:??Male?:??1965?? Patient Information Discharge Location: [facility] Primary Care Physician: Sergey Archer MD Admit Date/Time: 04/28/24 23:26 Discharge Disposition Discharge Disposition: Long-Term Facility/Rehab Discharge Diagnosis History of depression (Z86.59) Dysthymic disorder (F34.1) History of anxiety (Z86.59) Benign hypertension (I10) Elevated cholesterol (E78.00) Acquired hypothyroidism (E03.9) Gastroesophageal reflux disease without esophagitis (K21.9) Mild persistent asthma without complication (J45.30) Acute kidney injury (N17.9) Cigarette nicotine dependence without complication (F17.210) Fall (W19.XXXA) Hypotension (I95.9) Lung interstitial disease (J84.9) Fall (on) (from) other stairs and steps, initial encounter (W10.8XXA) Orthostatic hypotension (I95.1) _ Discharge Medications Acetaminophen (acetaminophen 500 mg oral tablet)?1?tab(s)?500?Milligram?By Mouth?4 times a day? NEEDED FOR PAIN FOR 10 DAYS MAX 4 TABS PER DAY Albuterol (albuterol CFC free 90 mcg/inh inhalation aerosol)?2?puff(s)?Inhalation?Every4 hours?as needed?Wheezing/Shortness of Breath Atorvastatin (atorvastatin 20 mg oral tablet)?1?tab(s)?20?Milligram?By Mouth?Daily BusPIRone (busPIRone 15 mg oral tablet)?1?tab(s)?15?Milligram?By Mouth?3 times a day ChlorproMAZINE (chlorproMAZINE 200 mg oral tablet)?1?tab(s)?200?Milligram?By Mouth?Daily at bedtime?for 30?Days Cholecalciferol (Vitamin D3 2000 intl units oral tablet)?1?tab(s)?50?Microgram?By Mouth?Daily?for 30?Days Cyanocobalamin (Vitamin B12 1000 mcg oral tablet)?1?tab(s)?1,000?Microgram?By Mouth?Daily Duloxetine (duloxetine 20 mg oral enteric coated capsule)?1?capsule?20?Milligram?By Mouth?2 times a day Gabapentin (gabapentin 600 mg oral tablet)?1?tab(s)?600?Milligram?By Mouth?3 times a day HydrOXYzine (hydrOXYzine pamoate 100 mg oral capsule)?1?capsule?100?Milligram?By Mouth?3 times a day?as needed?for anxiety?for 30?Days Levothyroxine (levothyroxine 0.025 mg oral tablet)?1?tab(s)?25?Microgram?By Mouth?Daily Lidocaine/Prilocaine Topical (lidocaine-prilocaine 2.5%-2.5% topical cream)?1?zach?Topically?Once?apply to both feet prior to appointment Meclizine (meclizine 25 mg oral tablet)?1?tab(s)?25?Milligram?By Mouth?3 times a day?as needed?for dizziness Melatonin (melatonin 5 mg oral tablet)?1?tab(s)?5?Milligram?By Mouth?Daily at bedtime?as needed?for insomnia?for 30?Days Midodrine (midodrine 5 mg oral tablet)?5?Milligram?By Mouth?3 times a day?Hold for SBP >140 Avoid giving at bedtime Nicotine (nicotine 21 mg/24 hr transdermal film, extended release)?1?patch(es)?Topically?Daily?for 30?Days?Apply to skin.Leave on for 24 hours.Use for at least 3 months before tapering down. Nicotine (nicotine 4 mg oral transmucosal lozenge)?See Instructions?as needed?as needed for smoking cessation?Use 1 lozenge by mouth to replace times you regularly smoke and as needed fornicotine cravings. Place between gum and cheek until disolved, do not chew or swallow whole.May useup to 20 lozenge per day. Oxycodone (oxyCODONE 5 mg oral tablet)?TAKE 1 TABLET BY MOUTH EVERY 8 HOURS NEEDED FOR PAIN FOR 7 DAYS ONLY FOR SEVERE PAIN Pantoprazole (pantoprazole 40 mg oral delayed release tablet)?2?tab(s)?80?Milligram?By Mouth?Daily Sertraline (sertraline 100 mg oral tablet)?1.5?tab(s)?150?Milligram?By Mouth?Daily Tamsulosin (tamsulosin 0.4 mg oral capsule)?0.4?Milligram?1?capsule?By Mouth?Daily Thiamine (Vitamin B1 100 mg oral tablet)?100?Milligram?1?tablet?By Mouth?Daily?for 14?Days Varenicline (varenicline 1mg tablet)?1?tab(s)?1?Milligram?By Mouth?2 times a day?Take with food and with a full glass of water ? Quality Measures Tobacco Use Treatment:? Durable Medical Equipment Discharge recommendations: Rehab (04/29/24) Name of Agency #1: [facility] (03/31/24) Service Categories #1: Physical Therapy, Long-Term (03/31/24) Ambulatory devices needed: None (05/02/24) ? Medications Started midodrine increased to 5 mg?? TID Allergies Allergies ?(Active and Proposed Allergies Only) Egg Allergy? (Severity: Mild, Onset: Unknown) traMADol? (Severity: Unknown severity, Onset: Unknown) ?Reactions: racing thoughts penicillins? (Severity: Unknown severity, Onset: Unknown) ?Reactions: hives aspirin? (Severity: Unknown severity, Onset: Unknown) ? Objective Assessment and Plan ?? 58-year-old male with a past medical history of anxiety, depression, hypomagnesemia, acute hypoxic respiratory failure, pneumonia, JEWEL, hypothyroidism, hypertension presented to the hospital after a mechanical??fall that occurred at the sober house in which he resides. ?Diagnoses Fall (on) (from) other stairs and steps, (W10.8XXA); Orthostatic hypotension (I95.1) ?Telemetry shows no arrhythmias Was positive for orthostasis. ??Orthostasis improved with IV crystalloid,??and midodrine was increased to 5 mg 3 times daily Negative for orthostatics today.?? Will continue midodrine 5 mg 3 times daily Compression stockings while out of bed Discussed about maintaining adequate oral hydration neck ?For right rib cage pain,??will give lidocaine,??scheduled high-dose Tylenol, and currently wasstarted on oxycodone, which we will continue. ??He??had asked to increase the dose of oxycodone, explained to him that??we would not recommend and would not increase??oxycodone dose, due to??significa nt??risks??of dependence and abuse ???PT recommended rehab, patient is medically ready to go to rehab when he has bed available ? Benign hypertension ??(I10) Patient presented to the ED with systolic in the 80's, he??was then??administered 1L 0.9%NS with improvement, systolic stabilized in the 120s. Patient reported that within the last month has stopped taking home regimen of Amlodipine and Metoprolol, continues to experience dizziness when he stands up. -Restarted midodrine- see above ??? Holding amlodipine and metoprolol - ?? Acute Kidney Injury; mild N17.9 Patient creatinine upon admission was 1.25, administered 1L 0.9% NS bolus with improvement to 1.22??and now improved to 1.0 ? - ?? Mild persistent asthma without complication ??(J45.30) Cigarette nicotine dependence without complication F17.210 Patient reported that he has been smoking a pack a day for 43 years, evidence of emphysema on chestx-ray. Patient reported that he has a family history??of emphysema. He is actively??trying to quit.?He was hospitalized recently for Pneumonia and discharged 03/31/2024 ??? CT chest from 03/30/2024 showed extensive bilateral groundglass opacities consistent with multifocal pneumonia, multiple borderline enlarged mediastinal and hilar lymph nodes, likely reactive ? Chest x-ray this hospitalization shows increased progression of/worsening of interstitial prominence, now moderate to severe, superimposed on hyperinflated lungs compatible with emphysema,??and reported as Significant progression of interstitial lung disease. ? Will need repeat CT chest in 8 weeks, and??will also need PFTs outpatient. Have discussed this with patient ??? Counseled on maintaining tobacco cessation, continue Chantix. ??? No acute bronchospasm ?? -Continue home inhalers ? History of depression ??(Z86.59) Dysthymic disorder ??(F34.1) History of anxiety ??(Z86.59) ?? -Continue Buspirone 15mg, sertraline, chlorpromazine and duloxetine ?? dyslipidemia (E78.00) -Continue Atorvastatin ?? Acquired hypothyroidism ??(E03.9) -Continue Levothyroxine ?? Gastroesophageal reflux disease without esophagitis ??(K21.9) -Continue Pantoprazole ? Discharge Planning:?? . Physical Exam GENERAL: In no apparent distress HEENT: Head normocephalic, PERRL,Moist mucous membrane. 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 ? Pending Results No Pending Results Patient Education Titles Web[employer] Ign[employer] Patient Education - Understanding Orthostatic Hypotension?? [employer] Patient Education - Zones Living Smoke Free?? Follow-Up Appointments Added Follow Up ?Time Frame ?Comments Gianni KEY, Sergey Novak?1 to 2 weeks Post Discharge Care Discharge Prescriptions ?None, 05/02/24 12:42:00 EDT Home Health Face to Face ^[facility] Results Discharge Labs BLOOD COUNT & DIFF WBC 6.6 k/mm3 ()?? 05/01/2024 00:21 RBC 4.91 m/mm3 ()?? 05/01/2024 00:21 Hgb 12.6 Gm/dL (Low)?? 05/01/2024 00:21 Hct 40.1 % (Low)?? 05/01/2024 00:21 MCV 81.7 femtoliters ()?? 05/01/2024 00:21 MCH 25.7 pg (Low)?? 05/01/2024 00:21 MCHC 31.4 g/dL (Low)?? 05/01/2024 00:21 Platelet Count 277 k/mm3 ()?? 05/01/2024 00:21 RDW-SD 47.1 femtoliters (High)?? 05/01/2024 00:21 MPV 8.5 femtoliters (Low)?? 05/01/2024 00:21 Nucleated RBC (Automated) 0.0 #/100 WBC'S ()?? 05/01/2024 00:21 Abs. NRBC 0.0 k/mm3 ()?? 05/01/2024 00:21 Abs. Neut 4.0 k/mm3 ()?? 05/01/2024 00:21 Abs. Lymph 1.4 k/mm3 ()?? 05/01/2024 00:21 Abs. [place] 0.5 k/mm3 ()?? 05/01/2024 00:21 Abs. Eo 0.6 k/mm3 (High)?? 05/01/2024 00:21 Abs. Baso 0.1 k/mm3 ()?? 05/01/2024 00:21 Neut % 61.5 % ()?? 05/01/2024 00:21 Lymph % 20.8 % ()?? 05/01/2024 00:21 [place] % 7.2 % ()?? 05/01/2024 00:21 Eos % 8.5 % (High)?? 05/01/2024 00:21 Baso % 1.4 % ()?? 05/01/2024 00:21 Imm Gran 0.6 % ()?? 05/01/2024 00:21 Abs. Imm Gran 0.0 k/mm3 ()?? 05/01/2024 00:21 ?? CARDIAC High Sensitivity Troponin (HSTnT) 16 ng/L ()?? 04/28/2024 18:44 ? CHEM GENERAL Sodium 138 mmol/L ()?? 05/01/2024 00:21 Potassium 4.4 mmol/L ()?? 05/01/2024 00:21 Chloride 101 mmol/L ()?? 05/01/2024 00:21 Bicarbonate Level 23 mmol/L ()?? 05/01/2024 00:21 Anion Gap 14 ()?? 05/01/2024 00:21 Glucose Level 88 mg/dL ()?? 05/01/2024 00:21 Glucose, POC 90 mg/dL ()?? 04/29/2024 07:26 BUN 19 mg/dL ()?? 05/01/2024 00:21 Creatinine-Blood 1.30 mg/dL (High)?? 05/01/2024 00:21 Estimated GFR Creatinine 64 ML/MIN/1.73 M2 ()?? 05/01/2024 00:21 Calcium 9.2 mg/dL ()?? 05/01/2024 00:21 Magnesium 1.6 mg/dL ()?? 04/28/2024 16:45 Protein, Total 6.0 Gm/dL (Low)?? 04/28/2024 16:45 Albumin 3.7 Gm/dL ()?? 04/28/2024 16:45 AG Ratio 1.6 ()?? 04/28/2024 16:45 Alkaline Phosphatase 174 units/L (High)?? 04/28/2024 16:45 AST (SGOT) 18 units/L ()?? 04/28/2024 16:45 ALT (SGPT) 17 units/L ()?? 04/28/2024 16:45 Bilirubin, Total 0.2 mg/dL ()?? 04/28/2024 16:45 ? ENDOCRINE/TUMOR MARKER TSH 1.50 uIU/mL ()?? 04/28/2024 16:45 ? TOXICOLOGY/TDM Ethanol, Serum or Plasma NONE DETECTED mg/dL ()?? 04/28/2024 16:45 ? URINE OTHER Est Creatinine Clearance 70.51 mL/min ()?? 05/01/2024 02:11 ? VIROLOGY COVID-19 by RT-PCR NEGATIVE ()?? 04/28/2024 17:00 ? 35_ minutes spent on discharge * Yoana Wong MD: PERFORM Event Display: Discharge/Transfer Note Hospital Authored Date: [id number] Pt still waiting on insurance auth , not being discharge today.?? This note will serve as progress note for today * Judith MD, Yoana: PERFORM Event Display: Patient Education Leaflets Authored Date: [id number] Understanding Orthostatic Hypotension ?? 22007 Understanding Orthostatic Hypotension?? Orthostatic hypotension is low blood pressure when you stand up from sitting or lying down. It can cause symptoms for such as dizziness, lightheadedness, and blurry vision. It may also cause faintingand falls. Sitting or lying down makes the symptoms get better. How to say it [id number] ?? What causes orthostatic hypotension??? Blood pressure is how much force with which your blood moves through your blood vessels. Hypertension means blood pressure is high. Hypotension means it???s low. Orthostatic means upright posture. Many things can cause blood pressure to be too low when you stand up.?? Some medicines can cause orthostatic hypotension. These include: ??? Blood pressure medicines ??? Water pills (diuretics) ??? Some antidepressants ??? Some heart medicines ??? Some pain, anxiety, sedative, and sleeping medicines?? Other causes include: ??? Eating a large meal ??? Loss of body fluids (dehydration) from vomiting, diarrhea, or not drinking enough ??? Changes in blood vessels because of older age ??? Severe infection ??? High fever ??? Blood loss, such as bleeding from the stomach or intestines ??? Neurological diseases that impair the autonomic nervous system, such as Parkinson disease ??? Congestive heart failure ??? Diabetes ??? Alcoholism ??? Peripheral neuropathy? Symptoms of orthostatic hypotension?? Symptoms happen when you stand up from sitting or lying down. They can also happen after standing for a long time. They can include: ??? Feeling lightheaded ??? Feeling dizzy ??? Weakness ??? Blurred vision ??? Tunnel vision ??? Pain in the back of head, neck, and shoulders ??? Fainting?? The symptoms get better or go away when you sit or lie down.? Diagnosing orthostatic hypotension?? Your healthcare provider will ask about your symptoms and health history. Make sure to tell him or her every medicine that you take. This includes [id number] supplements, vitamins, and herbs. Also tell your healthcare provider if you have been sick recently.?? You may also have tests such as: ??? Blood pressure test. Your healthcare provider will measure your blood pressure while sitting and when standing up. ??? Blood tests. These check for illness or other conditions that may cause the problem. ??? Electrocardiogram (ECG). This test looks at the electrical activity of your heart.? Treatment for orthostatic hypotension?? Treatment may depend on what's causing your low blood pressure. It can include any of these: ??? Stopping medicines that may be causing symptoms ??? Standing up slowly ??? Not spending time inhot weather ??? Drinking plenty of fluids ??? Eating more salt ??? Drinking less alcohol?? In some cases, your healthcare provider may prescribe a medicine to help prevent orthostatic hypotension. Talk with your healthcare providers about the risks, benefits, and possible side effects of all medicines.? Possible complications of orthostatic hypotension?? The condition can cause falls, especially in older adults. Falls can lead to injury and time in thehospital. People with orthostatic hypotension may also have a higher risk for future heart problems. These include congestive heart failure and heart rhythm problems. In some cases, it can cause stroke.? Living with orthostatic hypotension?? Change positions slowly from lying to standing. When getting out of bed, sit on the side of the bedwith your legs down for at least 30 seconds before standing. This gives your body time to adjust tothe position change.? When to call your healthcare provider?? Call your healthcare provider if you have any of the following: ??? Dizziness, lightheadedness, or fainting ??? Fever of 100.4??F (38??C) or higher, or as directed by your healthcare provider ??? Symptoms that don???t get better, or get worse ??? Black or red color in your stools or vomit ??? Diarrhea or vomiting that doesn???t stop ??? Inability to eat or drink ??? Burning when you urinate ??? Foul-smelling urine ?? Last Reviewed Date: 2022 ?? [id number] [employer]. All rights reserved. This information is not intended as a substitute for professional medical care. Always follow your healthcare professional's instructions. ?? * Ashley Ríos RN: PERFORM Event Display: Patient Education Leaflets Authored Date: [id number] [place] Living Smoke Free ?? 415 ? LIVING SMOKE FREE ?? Smoking is one of the hardest habits to break.?? It takes most smokers 5-6 tries before they finally quit. So, don???t give up.?? Millions of people have given up smoking and?? so can you! The benefits of quitting start right away and keep improving the longer you go without smoking: ? Improve your ability to breathe without coughing or shortness of breath ? Reduce your risk of lung cancer, heart disease, chronic lung disease ? Have more money in your pocket ? Have whiter teeth, fewer wrinkles and softer skin ? Have better smelling hair, breath, clothes, home and car ? Improve your sense of taste and smell TRIGGERS TO SMOKING RELAPSE KNOW WHY YOU SMOKE AND WHAT YOUR SMOKING TRIGGERS ARE.?? WRITE YOUR TRIGGERS DOWN AND LOOK AT THEM OFTEN. Understand or identify your personal triggers. Some triggers may include: ? Drinking or socializing ? Being around smoking and/or smokers ? After a meal or work break time ? In the car stressful situations or boredom or loneliness ? When you wake up DEVELOP COPING SKILLS DEVELOP AND USE COPING SKILLS. Quitting smoking is a big change.?? People will congratulate you and you have the right to be proud?? But at times you may miss smoking, so plan ahead to resist temptation. ?Ask for the support of your family and friends.?? Call a friend when you want to smoke. ? Avoid people or places that can trigger you to smoke.?? Ask others not to smoke around you. ? Spend time in places where you can???t smoke, such as a restaurant. ? Surround yourself with non-smokers. ? Remind yourself why you quit.?? Stop yourself from ???just one more?? . ? Recognize triggers and find a way to cope. ? Change your habits; go for a walk after meals instead of smoking. ? Save the cigarette money and reward yourself.? Exercise every day.?? This will reduce stress, improve your mood and keep weight stable or at a loss. ? INFORMATION ABOUT QUITTING GET SUPPORT. ?? Support programs can make an important difference, especially for the heavy smoker. ?QUITWORKS: Fax referrals to: ? [place] Smokers??? Helpline: o Somali: 1 (272) Quit-Now ( )?htttps://ma.quitlogix.org/en-us o Afghan: 1 (383) -8- D??alonso ( )?https://ma.quitlogix.org/es-es ??? Quit Tips Line (24 hour recorded messages): www.[facility] Link.Mutracx (quit smoking information & local quit smoking support programs) ? SMOKING CESSATION RESOURCES Additional Resources: ?? [place] [employer] ([facility] Office) ([place]) [place] [employer] Tobacco Quit-Line 6-412-[facility] ( ); https://www.lungusa.org Deaf or Hearing Impaired 1 (777) ??? TDD - 6856 [place] [employer] (300) TVC-6238; www.cancer.org [place] [employer] ; www.heart.org QUITWORKS Fax referrals to: http://quitworks.[facility] Link.org/ [facility] Start to Stop Program https://www.Sinobpo/minuteclinic/services/smoking-cessation ?? SMOKING CESSATION OPTIONS Acupuncture: ?? Flexible needles inserted into the skin to reduce the side effects of nicotine withdrawal. ?? Behavior Modification Program: ?? Helps you to understand your smoking history, reasons for smoking, set a target date to quit and plan how to resist the urge to smoke. ?? Hypnosis: ?? Hypnosis can help strengthen your motivation and reduce cravings for nicotine. ?? Nicotine Replacement Therapy (NRT): ?? Provides nicotine to help reduce the craving for nicotine and other withdrawal symptoms.?? This therapy can be provided by: ? Nicotine gum ? Nicotine inhalation device ? Nicotine lozenge ? Nicotine patch ?? Prescription Medications: bupropion sr (wellbutrin or zyban) or varenicline (chantix) ? Patient Care team information Care Team Personnel Name: Zaida Hall RN Position: [facility] RN Member Role: Primary Care Nurse Name: Sergey Archer MD Position: Reference Physician Member Role: PCP Address: Address: [address] [place] [id number]- Name: Ashley Ríos RN Position: [facility] RN Member Role: Primary Care Nurse Name: Yuly Vásquez RN Position: [facility] RN Member Role: Primary Care Nurse Name: Robson Feldman RN Position: S RN Member Role: Primary Care Nurse Name: Liza Chau RN Position: S RN Member Role: Primary Care Nurse Name: Alyson Cage NP Position: [facility] PCO Associate Professional Member Role: Primary Care Nurse Address: Address: [address] [place] [address]- [place] Name: Elena Dominguez RN Position: S RN Member Role: Primary Care Nurse Name: Gulshan Moulton RN Position: S RN Member Role: Primary Care Nurse Name: Farnaz Adames Position: [facility] AMB Nurse Member Role: Lifetime Consulting Physician Name: Kristofer Segundo RN Position: S RN Member Role: Primary Care Nurse Name: Sarah Jackson RN Position: S RN Member Role: Primary Care Nurse Name: Luke Cheatham LPN Position: S RN Member Role: Primary Care Nurse Name: Anum Aguiar RN Position: [facility] RN Member Role: Primary Care Nurse Name: Norman Richards RN Position: [facility] RN Member Role: Primary Care Nurse Name: Rita Edmonds RN Position: [facility] AMB Nurse Member Role: Primary Care Nurse Name: Sumit Salas RN Position: [facility] RN Member Role: Primary Care Nurse Care Team Related Persons Name: TANIA CONYE Address: [place] [address] Name: ROMERO SOLER Address: [address] [address]
--- OUTSIDE RECORDS SUMMARY | 2024-05-25 12:57 | XMS_ITS | Continuity of Care Document ---
Author Organization [facility] ter Address [address] [place] [address]- Care Team Providers Care [employer] Name Role Phone Sergey Archer MD Primary Care Physician Encounter [facility] Date(s): 05/14/24 - 05/15/[address] [address]- Encounter Diagnosis Orthostatic hypotension(Final) - 05/14/24 Fall(Final) - 05/14/24 Discharge Disposition: A-D/C Home Attending Physician: Sergey Carter MD Admitting Physician: Sergey Carter MD Referring Physician: Not on Staff, Referring MD Allergies, Adverse Reactions, Alerts Substance Reaction Severity Status aspirin Active penicillins hives Active traMADol racing thoughts Active Egg Allergy Mild Active Immunizations Given and Recorded Vaccine Date [...] 23-valent vaccine 02/18/17 Given 1Result Comment: [09/21/2018] [facility] [id number] 2Result Comment: [06/10/2017] [facility]: [id number] 3Result Comment: [09/09/2017] [facility]# [id number] 4Result Comment: [09/09/2017] [facility]# [id number] Medications acetaminophen 500 mg oral tablet 1 [...] 17:47:00 EDT, Inhaler, Route to Pharmacy Electronically, [id number], [facility]/pharmacy #[id number], 187carly, 06/08/23 10:04:00... Start Date: [...] 0 Refills, Maintenance, 06/08/23 17:51:00 EDT, Tablet, [facility]/pharmacy #[id number], Partial fill upon patient request [...] drug. Start Date: 03/27/24 Status: Ordered gabapentin 600 mg oral tablet 1 tablet [...] capsule, 0 Refills, Maintenance,06/08/23 17:52:00 EDT, Capsule, [facility]/pharmacy #[id number], Partial fill upon patient request if the prescription is for a schedule II opioid drug., 187, cm, 0... Start Date: 06/08/23 Stop Date: 07/08/23 Status: Ordered levothyroxine 0.025 mg oral tablet 1 tablet = 25 mcg, By Mouth, Daily, # 30 tablet, 0 Refills, Maintenance, 06/08/23 17:48:00 EDT, Tablet, [facility]/pharmacy #[id number], Partial fill upon patient request [...] tablet, 0 Refills, Maintenance,06/08/23 17:50:00 EDT, Tablet, [facility]/pharmacy #[id number], Partial fill upon patient request [...] opioid drug. Start Date: 05/02/24 Status: Ordered midodrine 5 mg oral tablet 5 mg, Tablet, By Mouth, STAT, 05/14/24 19:07:00 EDT Start Date: 05/14/24 Stop Date: 05/14/24 Status: Completed nicotine 21 mg/24 hr transdermal film, extended release 1 patch, Topically, Daily, for 30 days, Apply to skin. Leave on for 24 hours. Use for at least 3 months before tapering down., # 30 patch, 5 Refills, Acute 09/25/24 16:15:00 EST, 03/29/24 16:15:00 EDT, Patch, [facility]/pharmacy #[id number], Partial fill upon pa... Start [...] Status: Ordered oxyCODONE 5 mg oral tablet TAKE 1 TABLET BY MOUTH EVERY 8 HOURS NEEDED FOR PAIN FOR 7 DAYS ONLY FOR SEVERE PAIN Start Date: 03/28/24 Status: Ordered OxyCODONE IR Tablet 5 mg, Tablet, By Mouth, Once, STAT, 05/14/24 22:41:00 EDT, Stop date 05/14/24 22:41:00 EDT Start Date: 05/14/24 Stop Date: 05/14/24 Status: Completed pantoprazole 40 mg oral delayed [...] 03/29/25 16:18:00 EDT, 03/29/24 16:17:00 EDT, Tablet, [facility]/pharmacy #[id number], Partial fill upon patient request if the [...] Refills, Maintenance, 06/08/23 17:48:00 EDT, Tablet, [id number], Partial fill upon patient request if the [...] Confirmed Active 1While living in [place] Results Radiology Reports * Exam Date Time Procedure Performing Provider Status 05/14/24 8:[address] Abd/Pelvis W/ IV Contrast Only Jalb ert , Vera; Auth (Verified) Notes: (CT Abd/Pelvis W/ IV Contrast Only) Reason For Exam: Abdominal trauma, blunt;Other: RESULT: CT Abd/Pelvis W/ IV Contrast Only CT Abd/Pelvis W/ IV Contrast Only Hx of Present Illness: Coming from [facility], pt c o difficulty walking X 6 months. States he tripped today, c o rib pain, denies HS, denies LOC, no thinners. [place] reports shakiness all over body when ambulating.; Reason: Abdominal trauma, blunt; Clinical Question(s): solid organ injury, perforation, free fluid TECHNIQUE: Spiral CT through the abdomen and pelvis with IV contrast formatted in 3 planes. 100 cc of Omnipaque 300 was administered intravenously. This study was performed without oral contrast. Weight-based protocol using automatic tube modulation was used to optimize exposure parameters. CTDIvol Body: 15.40 mGy, DLP Body: 876 mGy*cm. COMPARISON: Multiple priors, most recent CT abdomen and pelvis 07/10/2022, CT chest 03/30/2024. FINDINGS: Clinical Specialist Medical Device View Findings, Lines and Tubes: None. Visualized Chest: Bibasilar septal thickening with associated groundglass opacities appear slightlyincreased from 07/10/2022. No pleural effusion. The heart is normal in size. No pericardial effusion. Diaphragm: Normal. Liver: A Gallbladder: No CT evidence of gallbladder pathology. Bile ducts: No biliary ductal dilation. Spleen: Normal. Pancreas: Normal. Adrenal glands: Normal. Kidneys and ureters: No hydronephrosis, stones, or suspicious masses. Bladder: Normal. Reproductive organs: Unremarkable. Stomach, small bowel, and large bowel: Limited assessment of GI tract due to nondistended state andlack of enteric contrast. No evidence of obstruction or acute inflammation. Appendix: Not seen, but no evidence of appendicitis. Peritoneum and retroperitoneum: No ascites or pneumoperitoneum. No omental or mesenteric lesions. Lymph nodes: No enlarged lymph nodes. Blood vessels: Moderate atherosclerotic vascular calcification. No aortic aneurysm. No evidence of venous thrombosis. Abdominal and pelvic wall: Unremarkable. Bones: No acute abnormality. Partially imaged fixation hardware at the right lower ribs. Chronic mild wedge compression deformity of the T12 vertebral body with slight progression and height loss compared to study from last month . Subcortical lucency beneath the superior enplate at T12 could be anearly finding of AVN involving the T12 vertebra. There is no significant osteopenia. IMPRESSION: No acute traumatic abnormality of the abdomen or pelvis. Redemonstration of chronic mild wedge compression deformity of the T12 vertebral body with new subtle subcortical lucency associated with the superior endplate compared to a CT last month. Vertebral AVN could potentially have this apperance . No findings of underlying osteopenia or bone lesion. Slight increase in bibasilar septal thickening with associated ground glass opacities from 07/10/2022. Findings may represent chronic interstitial lung disease, However infectious/inflammatory etiology cannot be excluded. I have personally reviewed the images and I agree with this report. WSN: [id number] Ordering Physician: Boris Pollock Dictated By: Emerald Enamorado MD Dictated Date/Time: 05/14/24 9:16 pm Reviewed By: Florencio Martinez MD Signed By: Florencio Martinez MD Signed Date/Time: 05/14/24 9:21 pm Transcribed By: MANDA Transcribed Date/Time: 05/14/24 8:51 pm * Exam Date Time Procedure Performing Provider Status 05/14/24 8:09 PM Chest 2 Views Frontal and Lat Guicho Church; Alisia (Verified) Notes: (Chest 2 Views Frontal and Lat) Reason For Exam: Traumatic Chest Pain;Other: RESULT: Chest 2 Views Frontal and Lat PROCEDURE: Chest 2 Views Frontal and Lat INDICATION: 58 years old Male with Hx of Present Illness: Coming from [facility], pt c o difficulty walking X 6 months. States he tripped today, c o rib pain, denies HS, denies LOC, no thinners. House reports shakiness all over body when ambulating.; Reason: Other:; Traumatic Chest Pain; Clinical Question(s): Other:; Pneumothorax, Fracture. COMPARISON: Chest radiograph 2021April 28, 2024. FINDINGS: AP and lateral upright views of the chest obtained. Lines and tubes:Several EKG leads project over the chest. Lungs and pleura: Mild to moderate interstitial prominence again seen bilaterally with superimposedgroundglass opacities at the RIGHT upper lobe, RIGHT middle lobe and RIGHT lower lobe and to lesserdegree the LEFT lower lobe unchanged radiographically. No pleural effusions.No evidence of pneumothorax. Heart, mediastinum and capo: Mild tortuosity of the thoracic aorta noted. No cardiomegaly or pulmonary venous hypertension. Bones and soft tissues: Metallic plates and screws noted at three different ribs laterally on the RIGHT. A single screw projects over the posterior aspect of the RIGHT 7th rib. Several old healed fractures are noted in the posterior RIGHT 3rd, 4th 5th and 6th and 7th ribs. Mild to moderate uterine changes in the thoracic spine. Moderate old T12 compression fracture again seen with mild to moderate unchanged associated kyphosis. IMPRESSION: 1. Unchanged nonspecific interstitial and alveolar opacities RIGHT more than LEFT. Differential considerations include interstitial lung disease and atypical pneumonia. No pleural effusions or cardiomegaly. 2. Multiple RIGHT rib fractures. Evidence of ORIF of three of the fractures. Old T12 compression fracture again seen it is associated kyphosis. Thank you for allowing me to participate in the care of this patient. WSN: [id number] Ordering Physician: Boris Pollock Dictated By: Dmitry Salas MD Dictated Date/Time: 05/14/24 8:18 pm Reviewed By: Dmitry Salas MD Signed By: Dmitry Salas MD Signed Date/Time: 05/14/24 8:18 pm Transcribed By: MANDA Transcribed Date/Time: 05/14/24 8:13 pm Vital Signs Most recent to oldest [Reference Range]: 1 2 3 Height 186 cm (05/14/24 11:29 PM) 186 cm (05/14/24 5:16 PM) Weight 77.2 kg (05/14/24 11:29 PM) 77.2 kg (05/14/24 5:16 PM) Oxygen Saturation [94-100 %] 97 % (05/14/24 11:29 PM) 94 % (05/14/24 7:45 PM) 89 % *L* (05/14/24 7:41 PM) Pulse Rate [55-90 bpm] 81 bpm (05/14/24 11:29 PM) 87 bpm (05/14/24 7:41 PM) 94 bpm *H* (05/14/24 5:16 PM) Body Mass Index [18.5-24.99 kg/m2] 22.31 kg/m2 (05/14/24 11:29 PM) 22.31 kg/m2 (05/14/24 5:16 PM) Blood Pressure [90-138/55-84 mm Hg] 118/80mm Hg (05/14/24 11:29 PM) 121/81mm Hg (05/14/24 7:41 PM) 115/84mm Hg (05/14/24 5:16 PM) Respiratory Rate [16-30 br/min] 16 br/min (05/14/24 11:29 PM) 16 br/min (05/14/24 11:28 PM) 16 br/min (05/14/24 7:41 PM) Temperature [96.8-100.4 DegF] 98.0 DegF (05/14/24 11:29 PM) 98.3 DegF (05/14/24 7:41 PM) 98.4 DegF (05/14/24 5:16 PM) Liters per Minute 2 L/min (05/14/24 11:29 PM) 3 L/min (05/14/24 7:45 PM) Mode of Delivery (Oxygen) Nasal cannula (05/14/24 11:29 PM) Nasal cannula (05/14/24 7:45 PM) Room air (05/14/24 7:41 PM) Blood pressure sites Arm, left (05/14/24 11:29 PM) Temperature Route Oral (05/14/24 11:29 PM) Oral (05/14/24 7:41 PM) Oral (05/14/24 5:16 PM) Dry Weight 77.2 kg (05/14/24 11:29 PM) 77.2 kg (05/14/24 5:16 PM) Weight Obtained Via Patient/family state d (05/14/24 5:16 PM) Dry Weight Obtained Via Patient/family s tated (05/14/24 5:16 PM) Social History Social History Type Response Smoking Status Current every day haily okamauri; Type: Cigarettes; Tobacco use times per day: 1 PPD now down to 1 pack/week; Number of years: 36; Total pack years: 36; Started at age: 15; entered on: 03/02/17 Sex Patient Care team information Care Team Personnel Name: Zaida Hall RN Position: [facility] RN Member Role: Primary Care Nurse Name: Sergey Archer MD Position: Reference Physician Member Role: PCP Address: Address: [address] [place] [phone]- Name: Ashley Ríos RN Position: [facility] RN Member Role: Primary Care Nurse Name: Yuly Vásquez RN Position: [facility] RN Member Role: Primary Care Nurse Name: Robson eFldman RN Position: [facility] RN Member Role: Primary Care Nurse Name: Liza Chua RN Position: [facility] RN Member Role: Primary Care Nurse Name: Alyson Cage NP Position: [facility] PCO Associate Professional Member Role: Primary Care Nurse Address: Address: [address] [place] [phone]- [place] Name: Elena Dominguez RN Position: [facility] RN Member Role: Primary Care Nurse Name: Gulshan Moulton RN Position: [facility] RN Member Role: Primary Care Nurse Name: Farnaz Adames Position: [facility] AMB Nurse Member Role: Lifetime Consulting Physician Name: Kristofer Segundo RN Position: S RN Member Role: Primary Care Nurse Name: Sarah Jackson RN Position: [facility] RN Member Role: Primary Care Nurse Name: Luke Cheatham LPN Position: [facility] RN Member Role: Primary Care Nurse Name: Anum Aguiar RN Position: [facility] RN Member Role: Primary Care Nurse Name: Norman Richards RN Position: [facility] RN Member Role: Primary Care Nurse Name: Rita Edmonds RN Position: [facility] AMB Nurse Member Role: Primary Care Nurse Name: Sumit Salas RN Position: [facility] RN Member Role: Primary Care Nurse Care Team Related Persons Name: TANIA COYNE Address: [place] [address] Name: ROMERO SOLER Address: home [address] [place] [address]
--- OUTSIDE RECORDS SUMMARY | 2024-05-25 12:59 | XMS_ITS | Continuity of Care Document ---
Author Organization [facility] ter Address [address] [place] [id number]- Care Team Providers Care Chief Optometry Service Name Role Phone Not on Staff, PCP Primary Care Physician Unavail able Encounter [facility] Date(s): 03/27/24 - 03/31/[address] [address]- Encounter Diagnosis Substance use(Discharge Diagnosis) - 03/29/24 Tobacco use disorder(Discharge Diagnosis) - 03/29/24 Discharge Disposition: A-Transfer SNF Attending Physician: July Frost MD Admitting Physician: Brittni Rosenberg MD Referring Physician: Not on Staff, Referring [...] 23-valent vaccine 02/18/17 Given 1Result Comment: [09/21/2018] [facility] [id number] 2Result Comment: [06/10/2017] [facility]: 19941-342-12 3Result Comment: [09/09/2017] [facility]# [id number] 4Result Comment: [09/09/2017] [facility]# [id number] Medications acetaminophen 500 mg oral tablet 1 [...] 17:47:00 EDT, Inhaler, Route to Pharmacy Electronically, [id number], [facility]/pharmacy #[id number], 187, cm, 06/08/23 10:04:00... Start Date: 06/08/23 Status: Ordered amLODIPine 5 mg oral tablet 5 mg, By Mouth, Daily, # 30 tablet, Refills 0, Tot. Refills 0, Maintenance, 06/08/23 17:47:00 EDT, Route to Pharmacy Electronically, [facility]/pharmacy #[id number], Partial fill upon patient request if the prescription is for a schedule II opioid drug., 187, cm,... Start Date: 06/08/23 Stop Date: 07/08/23 Status: Ordered atorvastatin 20 mg oral tablet [...] opioid drug. Start Date: 03/29/24 Status: Ordered cefpodoxime 200 mg oral tablet = 200 mg, By Mouth, Every 12 hours, for 1 days, # 2 each, 0 Refills, Acute 04/01/24 14:59:00 EDT, 03/31/24 14:59:00 EDT, Tablet, Partial fill upon patient request if the prescription is for a schedule II opioid drug. Start Date: 03/31/24 Stop Date: 04/01/24 Status: Ordered chlorproMAZINE 200 mg oral tablet 1 tablet = 200 mg, By Mouth, Daily at bedtime, # 30 tablet, 0 Refills, Maintenance, 06/08/23 17:51:00 EDT, Tablet, [facility]/pharmacy #[id number], Partial fill upon patient request if the prescription is for a schedule II opioid drug., 187, cm, 06/08/23 10:04:00... Start Date: 06/08/23 Stop Date: 07/08/23 Status: Ordered doxycycline hyclate 100 mg oral capsule = 100 mg, By Mouth, 2 times a day, for 1 days, # 2 each, 0 Refills, Acute 04/01/24 14:59:00 EDT, 03/31/24 14:59:00 EDT, Capsule, Partial fill upon patient request if the prescription is for a schedule II opioid drug. Start Date: 03/31/24 Stop Date: 04/01/24 Status: Ordered duloxetine 20 mg oral enteric coated capsule 1 capsule = 20 mg, By Mouth, 2 times a day, # 180 capsule, 0 Refills, Maintenance, 03/27/24 6:05:00EDT, EC Capsule, Partial fill upon patient request if the prescription is for a schedule II opioid drug. Start Date: 03/27/24 Status: Ordered gabapentin 300 mg oral capsule 300 mg, Capsule, By Mouth, 03/31/24 9:00:00 EDT Start Date: 03/31/24 Stop Date: 03/31/24 Status: Completed gabapentin 600 mg oral tablet [...] capsule, 0 Refills, Maintenance,06/08/23 17:52:00 EDT, Capsule, [facility]/pharmacy #[id number], Partial fill upon patient request if the prescription is for a schedule II opioid drug., 187, cm, 0... Start Date: 06/08/23 Stop Date: 07/08/23 Status: Ordered levothyroxine 0.025 mg oral tablet 1 tablet = 25 mcg, By Mouth, Daily, # 30 tablet, 0 Refills, Maintenance, 06/08/23 17:48:00 EDT, Tablet, [facility]/pharmacy #[id number], Partial fill upon patient request if [...] tablet, 0 Refills, Maintenance,06/08/23 17:50:00 EDT, Tablet, [facility]/pharmacy #[id number], Partial fill upon patient request if the prescription is for a schedule II opioid drug., 187, cm, 09... Start Date: 06/08/23 Stop Date: 07/08/23 Status: Ordered metoprolol 25 mg oral tablet, extended release 25 mg, By Mouth, Daily, # 30 tablet, Refills 0, Tot. Refills 0, Maintenance, 06/08/23 17:48:00 EDT,Route to Pharmacy Electronically, [facility]/pharmacy #[id number], Partial fill upon patient request if the prescription is for a schedule II opioid drug., 187, cm,... Start Date: 06/08/23 Stop Date: 07/08/23 Status: Ordered midodrine 5 mg oral tablet 2.5 mg, Tablet, By Mouth, Hold for: SBP>120mmHg, 03/31/24 9:00:00 EDT Start Date: 03/31/24 Stop Date: 03/31/24 Status: Completed midodrine 5 mg oral tablet 2.5 mg, Tablet, By Mouth, Hold for: SBP>120mmHg, 03/31/24 15:00:00 EDT Start Date: 03/31/24 Stop Date: 03/31/24 Status: Completed midodrine 5 mg oral tablet 2.5 mg, By Mouth, 3 times a day, # 90 each, Refills 0, Tot. Refills 0, Maintenance, 03/31/24 14:59:00 EDT, Do Not Route, Partial fill upon patient request if the prescription is for a schedule II opioid drug. Start Date: 03/31/24 Status: Ordered mupirocin 2% topical ointment 1 zach, Topically, 3 times a day, for 5 days, # 15 Gm, 0 Refills, Acute 04/05/24 14:59:00 EDT, 03/31/24 14:59:00 EDT, Ointment, Partial fill upon patient request if the prescription is for a schedule II opioid drug. Start Date: 03/31/24 Stop Date: 04/05/24 Status: Ordered nicotine 21 mg/24 hr transdermal film, extended release 1 patch, Topically, Daily, for 30 days, Apply to skin. Leave on for 24 hours. Use for at least 3 months before tapering down., # 30 patch, 5 Refills, Acute 09/25/24 16:15:00 EST, 03/29/24 16:15:00 EDT, Patch, [facility]/pharmacy #[id number], Partial fill upon pa... Start Date: 03/29/24 [...] SEVERE PAIN Start Date: 03/28/24 Status: Ordered oxyCODONE 5 mg oral tablet 10 mg, Tablet, By Mouth, Every 4 hours, PRN for Pain , Severe, Routine, 03/27/24 0:27:00 EDT Start Date: 03/27/24 Stop Date: 04/01/24 Status: Discontinued pantoprazole 40 mg oral delayed release tablet [...] opioid drug. Start Date: 03/28/24 Status: Ordered tiotropium 1.25 mcg/inh inhalation aerosol 2 puffs = 2.5 mcg, Inhalation, Daily, # 1 each, 0 Refills, Maintenance, 06/08/23 17:49:00 EDT, Aerosol, [facility]/pharmacy #[id number], Partial fill upon patient request if the prescription is for a schedule II opioid drug., 187, cm, 06/08/23 10:04:00 EDT, Height... Start Date: 06/08/23 Status: Ordered varenicline 1mg tablet 1 tablet = 1 mg, By Mouth, 2 times a day, Take with food and with a full glass of water, # 60 tablet, 4 Refills, Acute 03/29/25 16:18:00 EDT, 03/29/24 16:17:00 EDT, Tablet, [facility]/pharmacy #[id number], Partial fill upon patient request if [...] deficiency Confirmed Active 1While living in [place] Diagnosis Diagnosis Type Effective Dates Health Status Cl inical Service Informant Tobacco use disorder Discharge Diagnosis 03/29/24 Non-Specified Substance use Discharge Diagnosis 03/29/24 Results Radiology Reports * Exam Date Time Procedure Performing Provider Status 03/30/24 5:[address] Chest W/O Contrast Goldsmith , Vaness a; Auth (Verified) Notes: (CT Chest W/O Contrast) Reason For Exam: Respiratory illness, nondiagnostic xray;Other: RESULT: CT Chest W/O Contrast CT Chest W/O Contrast INDICATION: Reason: Other:; Respiratory illness, nondiagnostic xray; Clinical Question(s): Carcinoma; Order Comment: TECHNIQUE: Helical CT scan of the chest without IV contrast, formatted in 3 planes. Weight-based protocol was performed using automatic exposure control. CTDIvol Body: 5.50 mGy, DLP Body: 221 mGy*cm. COMPARISON: Chest radiograph 03/26/[address] 03/12/2023. FINDINGS: Surface Boss view findings, lines and tubes: None. Trachea and airways: Patent without evidence of tracheal or endobronchial lesion. Lungs and pleura: Extensive bilateral glass opacities mostly involving the upper lobes in the peripheral aspect of the bilateral lower lobes. No focal consolidation. Moderate centrilobular and paraseptal emphysema. Minimal peripheral reticular opacities may represent underlying fibrotic changes. No effusion or pneumothorax. Mediastinum and capo: Multiple bilateral enlarged mediastinal and hilar lymph nodes, largest is a right hilar lymph node measuring 1.4 x 1.0 cm (series 201:50), these are favored to be reactive. Small type I hiatal hernia. Normal thyroid. Heart: Heart is normal in size. Trace pericardial fluid without rozina effusion. Moderate coronary artery calcification. Aorta: Mild vascular calcification but no aneurysm. Pulmonary arteries: Normal caliber. Chest wall soft tissues: No acute abnormality. Diaphragm: Intact. Upper abdomen: No significant abnormality. Bones: Mild to moderate degenerative changes of the visualized spine. Chronic appearing mild wedge compression fracture of the superior endplate of T12 is noted, with widening of the interspinous space, in a pattern consistent with a chronic hyperflexion type injury (series 203:70). This has been seen on chest radiograph 03/16/2024 but is new from 05/12/2023. ORIF changes of right 4th-8th ribs, multiple other chronic rib fractures are noted. No evidence of acute fracture on current study. IMPRESSION: 1. Extensive bilateral groundglass opacities consistent with multifocal pneumonia. Multiple borderline enlarged mediastinal and hilar lymph nodes, likely reactive. 2. Chronic mild compression fracture of T12 in a hyperflexion type injury. No acute fractures. I have personally reviewed the images and I agree with this report. WSN: [id number] Ordering Physician: July Frost Dictated By: Brittni Hampton MD Dictated Date/Time: 03/31/24 9:52 am Reviewed By: Kenia Kraus MD Signed By: Kenia Kraus MD Signed Date/Time: 03/31/24 9:57 am Transcribed By: MANDA Transcribed Date/Time: 03/31/24 8:05 am * Exam Date Time Procedure Performing Provider Status 03/26/24 11:[address] Head/Brain W/O Contrast Stupak , O leg; Auth (Verified) Notes: (CT Head/Brain W/O Contrast) Reason For Exam: Seizure Disorder RESULT: CT Head/Brain W/O Contrast CT Head/Brain W/O Contrast INDICATION: Patient reporting increased weakness and shaking at home, pt was unable to walk upstairs by himself, pt denies fevers, endorses SOB, pt denies etoh or drug use, sober 10 months per pt; Reason: Seizure Disorder; Clinical Question(s): Tumor Primary. TECHNIQUE: Noncontrast head CT using axial technique and reconstructed in axial and coronal planes.Iterative reconstruction techniques are used to optimize dose and image quality. CTDIvol Head: 48.30 mGy, DLP Head: 773 mGy*cm. COMPARISON: 03/16/2024. FINDINGS: Surface Boss view findings, lines and tubes: None. BRAIN AND EXTRA-AXIAL SPACES: No parenchymal hemorrhage, midline shift, or mass effect. Griffin-white matter differentiation is wellpreserved. Chronic right basilar lacunar infarct. No acute infarct. Negative insular ribbon and hyperdense vessel signs. Mild prominence of the ventricles and sulci consistent with parenchymal volume loss. Cavum septum pellucidum et vergae, normal variant. No white matter lesions. No subarachnoid hemorrhage. No subdural or epidural collection. CALVARIUM, SKULL BASE, AND SOFT TISSUES: No fractures or suspicious bony lesions. The paranasal sinuses and mastoid air cells are clear. Visualized orbits and globes are intact. The extracranial soft tissues are unremarkable. IMPRESSION: No acute intracranial pathology. I have personally reviewed the images and I agree with this report. WSN: [id number] Ordering Physician: Darci Alvarado Dictated By: Boris Mccall MD Dictated Date/Time: 03/27/24 0:06 am Reviewed By: Emilee Melissa MD Signed By: Emilee Melissa MD Signed Date/Time: 03/27/24 0:11 am Transcribed By: MANDA Transcribed Date/Time: 03/26/24 11:45 pm * Exam Date Time Procedure Performing Provider Status 03/26/24 9:38 PM Chest Portable Rebecca Hutchins; Auth (Ve rified) Notes: (Chest Portable) Reason For Exam: Shortness of Breath RESULT: Chest Portable Chest Portable Hx of Present Illness: Pt reporting increased weakness and shaking at home, pt was unable to walkupstairs by himself, pt denies fevers, endorses SOB, pt denies etoh or drug use, sober 10 months per pt; Reason: Shortness of Breath; Clinical Question(s): CHF COMPARISON: [facility], most recent dated 03/16/2024 FINDINGS: LINES AND TUBES: None. LUNGS AND PLEURA: Mild bibasilar opacities, probably atelectasis although developing pneumonias not excluded. Normal pulmonary vascularity. No pleural effusion. No pneumothorax. HEART, MEDIASTINUM AND CAPO: Heart is normal in size. Normal mediastinal and hilar contour. BONES AND SOFT TISSUES: No acute abnormality. Multiple right-sided healed rib fractures and orthopedic hardware again noted. One of the screws from the inferior right-sided rib plate appears displaced, similar to prior study. IMPRESSION: Mild bibasilar streaky opacities, likely atelectasis although developing pneumonia is not excluded.Clinical correlation and follow-up recommended. WSN: [id number] Ordering Physician: Joceline Moulton Dictated By: Jeannine Reyes MD Dictated Date/Time: 03/26/24 10:33 p Reviewed By: Jeannine Reyes MD Signed By: Jeannine Reyes MD Signed Date/Time: 03/26/24 10:33 pm Transcribed By: MANDA Transcribed Date/Time: 03/26/24 10:31 pm Vital Signs Most recent to oldest [Reference Range]: 1 2 3 4 Height 165 cm (03/30/24 2:58 PM) 165 cm (03/29/24 10:57 AM) 165 cm (03/27/24 5:52 AM) Weight 71.3 kg (03/27/24 5:52 AM) Oxygen Saturation [94-100 %] 98 % (03/31/24 4:00 PM) 98 % (03/31/24 8:00 AM) 96 % (03/31/24 2:00 AM) Pulse Rate [55-90 bpm] 88 bpm (03/31/24 4:00 PM) 82 bpm (03/31/24 3:22 PM) 87 bpm (03/31/24 9:04 AM) Body Mass Index [18.5-24.99 kg/m2] 26.19 kg/m2 *H* (03/27/24 5:52 AM) Blood Pressure [90-138/55-84 mm Hg] 124/76mm Hg (03/31/24 4:00 PM) 114/75mm Hg (03/31/24 3:22 PM) 100/60mm Hg (03/31/24 9:04 AM) Respiratory Rate [16-30 br/min] 16 br/min (03/31/24 4:00 PM) 18 br/min (03/31/24 1:37 PM) 18 br/min (03/31/24 9:04 AM) 18 br/min (03/31/24 9:04 AM) Temperature [96.8-100.4 DegF] 97.6 DegF (03/31/24 4:00 PM) 97.3 DegF (03/31/24 8:00 AM) 97.8 DegF (03/31/24 2:00 AM) Liters per Minute 2 L/min (03/30/24 12:10 AM) 2 L/min (03/28/24 8:00 PM) 3 L/min (03/28/24 3:00 PM) Mode of Delivery (Oxygen) Room air (03/31/24 4:00 PM) Room air (03/31/24 8:00 AM) Room air (03/31/24 2:00 AM) Blood pressure sites Arm, left (03/31/24 4:00 PM) Arm, left (03/31/24 8:00 AM) Arm, left (03/31/24 2:00 AM) Temperature Route Oral (03/31/24 4:00 PM) Oral (03/31/24 8:00 AM) Oral (03/31/24 2:00 AM) Dry Weight 71.3 kg (03/27/24 5:52 AM) Social History Social History Type Response Smoking Status Current every day sm oker; Type: Cigarettes; Tobacco use times per day: 1 PPD now down to 1 pack/week; Number of years: 36; Total pack years: 36; Started at age: 15; entered on: 03/02/17 Sex Consult note * Gulshan Mckeon MD: PERFORM, MODIFY, MODIFY, MODIFY, MODIFY Event Display: Consult Authored Date: Patient: ??DOMINGA MURRIETA ? Age:??58 Years?Sex:??Male?:??1965?? Chief Complaint/Reason for Consultation Referring Provider:??Dr. Silver Consulting Attending:??Dr. Adams Sources of Information:??Patient; [facility] records ?? Reason(s) for Consultation: uncontrolled anxiety and depression ?? 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 No Utox available. Psychiatry is consulted due to uncontrolled anxiety and depression. ? On assessment, Dominga Murrieta is alert and oriented and has good situational awareness. He tells me that he has been struggling with alcohol use since this teen-age years, where he would drink up up to3 x 24 oz of beer a day in addition to a pint of hard liquor. He also describes an extensive history of cocaine use, and episodic dabbling of other substances. Last cocaine use was in 2002. He has been sober from Alcohol for almost 11 months. He has been living in the [facility] and he enjoys this place here because it has good community that supports his sobriety. He is proud of all of the progress he has made regarding his sobriety. He is aware that he came into the hospital due to feeling weak. He is aware that he is going to go to a Rehab once he is medically cleared, because he wants to improve his balance and his strength. He does note that he gets dizzy when walking up stairs which is distressing him. He is focused on a lot of chronic pain he has from his history of alcohol - he states that the Cymbalta is not helping to him, so he does not take this medication at home. ?He also tells me that he takes Thorazine for nightmares, but is not consistent with this medication because he is unsure how help it us for him. He does endorse anxiety but this is mostly focused on his prognosis and his difficulties with his physical health - he feels more reassured and lessanxious because of the plan to go back to rehab. He also has some anxious thoughts about potentially losing his spot in the sober home - but he is hopeful that he go back to his room once his Rehabilitation is over. ?? Psychiatric ROS (BOLD IN POSITIVE) Depression:??, including depressed mood,??anhedonia, sleep,??guiltiness/worthlessness, low energy,??trouble concentrating, loss of/ excessive appetite, psychomotor retardation/ agitation. Denies??SI. ?? Grace:??elated mood, high energy with little to no sleep for consecutive days, racing thoughts, impulsivity. ?? Psychosis:??auditory or visual hallucinations, disorganized thoughts, dissociation from reality. ?? Anxiety:??anxiety, racing thoughts, panic attacks ?? PTSD:??flashbacks, nightmares, increased vigilance and startle reflex, intrusive thoughts, avoidance of reminders ?? Medical ROS: All systems reviewed and negative except as noted in HPI. ?? Past Psychiatric History: ?? Past Hospitalizations: [] per chart review, history of hospitalization at [facility] in May 2023 after he was having suicidal thoughts of wanting to shoot himself, in the setting of alcohol use. ? Past Suicidality/ Self-Injurious Behavior (SIB): [] no hx of suicide attempt, but did present to the ED last year with SI with thoughts to shoot himself. Dominga reported that he presented to the ED today due to chest pain and reporting suicidal ideation with a plan to shoot himself with his friends gun. He reported increased depression , anxiety and reporting that he has been coping with using alcohol.? Past Treatment Trials: [] buspirone [] mirtazapine [] wellbutrin [] prazosin [] xanax [] trazodone - caused worsening of nightmares [] ambien [] clonazepam ?? Treatment Providers:?? Was seeing a psychiatrist long-term but stopped seeing him when [place] to vis[place]is [place] [facility]. ?? Substance Use: Tobacco - smokes 1/2 pack cigarettes a day EtOH - sober for 11 months, formerly would drink 3 x 24 oz of beer and 1 pint of vodka a day. Illicit drugs - used cocaine frequently, ??last use 2002. Treatment History - [facility]. ?? 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 Family Psychiatric History: hx of depression hx of substance use disorder Review of Systems A full ROS was completed and was negative with the exception of pertinent positives noted in the history of the presenting illness (HPI).?? Objective Vital Signs?? Temperature: 98.3 DegF (03/30/24 08:00:00) Temperature Route: Oral (03/30/24 08:00:00) Pulse Rate:??100 bpm??High (03/30/24 08:32:00) Pulse Rate, Lyin bpm (03/29/24 10:57:00) Systolic Blood Pressure, Lyin mm Hg (03/29/24 10:57:00) Diastolic Blood Pressure, Lyin mm Hg (03/29/24 10:57:00) Pulse Rate, Sittin bpm (03/29/24 10:57:00) Systolic Blood Pressure, Sittin mm Hg (03/29/24 10:57:00) Diastolic Blood Pressure, Sittin mm Hg (03/29/24 10:57:00) Pulse Rate, Standin bpm (03/29/24 10:57:00) Systolic Blood Pressure, Standin mm Hg (03/29/24 10:57:00) Diastolic Blood Pressure, Standin mm Hg (03/29/24 10:57:00) Respiratory Rate:??14 br/min??Low (03/30/24 08:32:00) Respiratory Rate:??14 br/min??Low (03/30/24 08:32:00) Systolic Blood Pressure: 127 mm Hg (03/30/24 08:32:00) Systolic Blood Pressure: 127 mm Hg (03/30/24 08:32:00) Diastolic Blood Pressure: 81 mm Hg (03/30/24 08:32:00) Diastolic Blood Pressure: 81 mm Hg (03/30/24 08:32:00) Blood pressure sites: Arm, left (03/30/24 08:00:00) Pulse Pressure: 43 mm Hg (03/30/24 04:00:00) Oxygen Saturation:??91 %??Low (03/30/24 08:00:00) Liters per Minute: 2 L/min (03/30/24 00:10:00) Mode of Delivery (Oxygen): Room air (03/30/24 08:00:00) Early Warning Score: 2 (03/30/24 08:37:42) ? Physical Exam Mental Status Exam Appearance:??Appears stated age, no distress Attitude/Behavior: Cooperative, friendly, appropriate eye contact Psychomotor/MSK:??No agitation or retardation, no tic or tremor Speech: Normal??in volume, rate,??latency, and rhythm. Mood:?? 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 No Utox available. Psychiatry is consulted due to uncontrolled anxiety and depression. At this point, he??is??bein worked up for a recent weight loss, CT imaging being ordered.??He is scheduled to??be discharged to aPhysical Rehabilitation center once medically clear.??On assessment, Dominga is relatively euthymic, reports that his depression is in good control. He is very future oriented??about going to rehab; he??does express some anxiety regarding the potential of losing his bed at the sober living home, but he understands that its important for him to rebuild his strength at a Rehab Center before??returning back home. He does state that he is compliant with his medications, and feels that the Sertraline i s helpful??at managing his depression and his anxiety. He also does take Cymbalta, which is also serotonergic, which he says is prescribed for neuropathy.??He is prescribed??Thorazine 200mg QHS for insomnia, as he has a hx of bad??nightmares, which he takes PRN??in the home setting. At this time there are no safety concerns. ?? Protective factors: no hx of suicide attempt, engaged with treatment plan, future oriented, supportfrom family ([id number], sister), compliant with psychotropics, would like to maintain his sobriety and his sober-living home, does not own a gun, knows how to access resources when he is in needof help ?? Risk factors:??single white male, history of substance use but fortunately is in sustained sobriety, ? DSM 5 Diagnoses: dysthymia generalized anxiety disorder cocaine use disorder, in retirement remission alcohol use disorder, in retirement remission ?Treatment Recommendations: [] no psychiatric contraindication to discharge [] okay to continue psychiatry medications as ordered in the system, [] no safety concerns; patient is hopeful, future oriented and is engaged with many support systemswithin the community that he wishes to reestablish with once discharged. ? Case Discussed with Dr. Adams Case forwarded to primary team via V[facility] ?? Gulshan Velasquez??Mike KEY PGY4 [facility] of [facility]ry Pager: [phone] ? Histories Allergies Allergies ?(Active and Proposed Allergies [...] mg oral tablet, extended release)?25?Milligram?By Mouth?Daily?for 30?Days Nicotine (nicotine 21 mg/24 hr transdermal film, [...] Sertraline (sertraline 100 mg oral tablet)?1.5?tab(s)?150?Milligram?By Mouth?Daily Sulfamethoxazole/Trimethoprim (sulfamethoxazole-trimethoprim 800 mg-160 mg oral tablet)?1?tab(s)?By Mouth?Every 12 hours?FOR 10 DAYS Tamsulosin (tamsulosin 0.4 mg oral capsule)?0.4?Milligram?1?capsule?By Mouth?Daily Thiamine (Vitamin B1 100 mg oral tablet)?100?Milligram?1?tablet?By Mouth?Daily?for 14?Days Tiotropium (tiotropium 1.25 mcg/inh inhalation aerosol)?2?puff(s)?2.5?Microgram?Inhalation?Daily Triamcinolone Topical (triamcinolone 0.5% topical cream)?APPLY TOPICALLY 2 TIMES A DAY Varenicline (varenicline 1mg tablet)?1?tab(s)?1?Milligram?By Mouth?2 times a day?Take with food and with a full glass of water ? Inpatient Medications Medications (34) Active SCHEDULED: (21) Amlodipine 5 mg Tablet (amLODIPine 5 mg oral tablet) ??5 mg, By Mouth, Daily Atorvastatin 20 mg Tablet (atorvastatin 20 mg oral tablet) ??20 mg, By Mouth, Daily at bedtime Cefpodoxime 200 mg Tablet (Cefpodoxime Tablet) ??200 mg, By Mouth, Every 12 hours ChlorproMAZINE 50 mg Tablet (chlorproMAZINE 50 mg oral tablet) ??200 mg, By Mouth, Daily at bedtime Doxycycline 100 mg Tablet (Doxycycline Tablet) ??100 mg, By Mouth, 2 times a day Duloxetine 20 mg Capsule (DULoxetine Capsule) ??20 mg, By Mouth, 2 times a day Enoxaparin 40 mg Inj (Enoxaparin Inj) ??40 mg 0.4 mL, Subcutaneous Injection, Daily Gabapentin 300 mg Capsule (gabapentin 300 mg oral capsule) ??300 mg, By Mouth, 2 times a day Levothyroxine 25 mcg Tablet (levothyroxine 0.025 mg oral tablet) ??25 mcg, By Mouth, Daily Metoprolol 25 mg XL Tablet (Metoprolol ??XL Tablet) ??25 mg, By Mouth, Daily Midodrine 5 mg Tablet (midodrine 5 mg oral tablet) ??2.5 mg, By Mouth, 3 times a day Mupirocin 2% Oint 22 Gm (Mupirocin Topical Oint) ??1 application, Topically, 3 times a day NaCl 0.9% Flush 3ml (NaCL 0.9% Flush) ??3 mL, IV Push, Every 8 hours Nicotine 21 mg / 24 hour Patch (Nicotine Topical) ??21 mg, Topically, Daily Pantoprazole 40 mg EC Tablet (pantoprazole 40 mg oral delayed release tablet) ??40 mg, By Mouth, 2 times a day Phos-NaK Oral Powder ??1 pack/packet, By Mouth, 2 times a day Remove Patch (Remove ??Patch) ??1 each, Topically, Daily Sertraline 50 mg Tablet (sertraline 50 mg oral tablet) ??150 mg, By Mouth, Daily Varenicline 0.5 mg Tablet (Varenicline Tablet) ??0.5 mg, By Mouth, Daily Varenicline 0.5 mg Tablet (Varenicline Tablet) ??0.5 mg, By Mouth, 2 times a day Varenicline 1 mg Tablet (Varenicline Tablet) ??1 mg, By Mouth, 2 times a day CONTINUOUS: (0) PRN: (13) Acetaminophen 325 mg Tablet (Acetaminophen Tablet) ??650 mg, By Mouth, Every 4 hours Dextromethorphan-Guaifenesin 20 mg-200 mg/10 [...] ??3 mL, IV Push, Every 8 hours Nicotine Lozenge 4mg (Nicotine Lozenge) ??4 mg, By Mouth, Every hour Ondansetron 2mg/mL Inj (2mL Vial) (Ondansetron Inj) ??4 mg, IV Push, Every 6 hours OxyCODONE 5 mg IR Tablet (oxyCODONE 5 mg oral tablet) ??10 mg, By Mouth, Every 4 hours Polyethylene Glycol 17 Gm Powder (MiraLax Powder) ??17 Gm 1 pack/packet, By Mouth, Daily Senna Tablet ??8.6 mg 1 tablet, By Mouth, 2 times a day Simethicone 80 mg Chewable Tablet (Simethicone Tablet) ??80 mg, Chew, 3 times a day ? Results Recent Labs BLOOD COUNT & DIFF WBC 8.8 k/mm3 ()?? 03/29/2024 09:02 RBC 4.33 m/mm3 (Low)?? 03/29/2024 09:02 Hgb 11.3 Gm/dL (Low)?? 03/29/2024 09:02 Hct 34.7 % (Low)?? 03/29/2024 09:02 MCV 80.1 femtoliters ()?? 03/29/2024 09:02 MCH 26.1 pg (Low)?? 03/29/2024 09:02 MCHC 32.6 g/dL (Low)?? 03/29/2024 09:02 Platelet Count 244 k/mm3 ()?? 03/29/2024 09:02 RDW-SD 38.5 femtoliters ()?? 03/29/2024 09:02 MPV 9.5 femtoliters ()?? 03/29/2024 09:02 Nucleated RBC (Automated) 0.0 #/100 WBC'S ()?? 03/29/2024 09:02 Abs. NRBC 0.0 k/mm3 ()?? 03/29/2024 09:02 ?? CHEM GENERAL Sodium 137 mmol/L ()?? 03/29/2024 09:02 Potassium 3.9 mmol/L ()?? 03/29/2024 09:02 Chloride 99 mmol/L ()?? 03/29/2024 09:02 Bicarbonate Level 24 mmol/L ()?? 03/29/2024 09:02 Anion Gap 14 ()?? 03/29/2024 09:02 Glucose Level 101 mg/dL (High)?? 03/29/2024 09:02 Glucose, POC 142 mg/dL (High)?? 03/30/2024 02:00 BUN 11 mg/dL ()?? 03/29/2024 09:02 Creatinine-Blood 0.82 mg/dL ()?? 03/29/2024 09:02 Estimated GFR Creatinine 102 ML/MIN/1.73 M2 ()?? 03/29/2024 09:02 Calcium 9.0 mg/dL ()?? 03/29/2024 09:02 Phosphorus 2.4 mg/dL (Low)?? 03/29/2024 09:02 Magnesium 1.2 mg/dL (Low)?? 03/29/2024 09:02 ?? SEROLOGY INF DISEASE Legionella pneumophila Ab Non Reactive ()?? 03/27/2024 07:07 ?? URINE OTHER Est Creatinine Clearance 86.33 mL/min ()?? 03/29/2024 10:41 ? CBC, CBC w/Diff?? No qualifying data available. ?? BMP, Mg, and Phos?? No qualifying data available. ?? LFT?? No qualifying data available. ?? Urinalysis Est Creatinine Clearance: 86.33 mL/min (10:41) ?? Microbiology ?? COVID-19 (2019 Novel Coronavirus) PCR?? Completed?? Source: Nasal Body Site: Nose Collected Dt/Tm: 03/27/2024 00:52 Last Updated Dt/Tm: 03/27/2024 01:54 ?? Blood Culture?? Completed?? Source: Blood Body Site: ?? Collected Dt/Tm: 03/26/2024 21:32 Last Updated Dt/Tm: 03/28/2024 09:11 ?? Blood Culture 2 Results?? Completed?? Source: Blood Body Site: ?? Collected Dt/Tm: 03/26/2024 21:30 Last Updated Dt/Tm: 03/28/2024 09:11 ?? Blood Culture #2?? Completed?? Source: Blood Body Site: ?? Collected Dt/Tm: 03/26/2024 21:22 Last Updated Dt/Tm: 03/28/2024 09:11 ?? Blood Culture Result?? Completed?? Source: Blood Body Site: ?? Collected Dt/Tm: 03/26/2024 21:22 Last Updated Dt/Tm: 03/28/2024 09:11 ?? Respiratory Pathogen PCR with COVID-19?? Collected?? Source: Nasal Body Site: Nose Collected Dt/Tm: 03/26/2024 20:55 Last Updated Dt/Tm: 03/26/2024 20:55 ? * Domi BINGHAM, Gale M: PERFORM Event Display: Consultation Note Authored Date: Patient: ??DOMINGA MURRIETA ? Age:??58 Years?Sex:??Male?:??1965?? Indication for Consult comes from sober living with weakness and tremulous. ??no seizure like activity, no falls or headstrike. ??recent JEWEL/rhambdo History of Present Illness/Interval History ?? 58 year old male seen today for smoking cessation??As part of hospital initiative. Patient??with diseases related to or effected by smoking including HLD, hx DVT.? Carefully review??chart and had an extensive discussion with patient.?? Patient has?_??addiction to nicotine, smoking 15 cigarettes per day for 40+??years.??Their first cigarette of the day??within 5 minutes??of waking.?? Patient reports??Multiple??previous quit attempts, with longest length to cessation being while he was incarcerated.?He has tried nicotine patch in the past??as well asnicotine gum??he said the gum??was not good for his teeth and the patch??did not work at the time. ??Of note he was smoking more at the time the pack to over a pack a day, has cut back to smoking 3/4ppd for??over a year.? Currently living in a sober house??and??been alcohol free for 11 months. ??He reports there is no smoking in the house??but other??people staying there do go on the porch to smoke.?? Physical Exam Vitals & Measurements T:??98.4?F?? HR:??81??(Peripheral)?? RR:??16?? BP:??135/89?? SpO2:??92%?? HT:??165??cm?? WT:??71.3??kg?? BMI:??26.19?? Weight lb/oz: 157 lb 3 oz Assessment/Plan 1.??Tobacco use disorder ??Strongly recommended smoking cessation to this patient and counseled them on health??effects of smoking and benefits of quitting. Educated patient on medication options as well as symptoms of nicotine toxicity, possible side effects,??and usage instructions.??Also provided??patient with??support options including quit smoking help line phone number 2-571-ABZC-NOW. ?? Patient with?? HLD and??hx of DVTs,??HTN??and risk for ??cardiovascular event, respiratory disease,cancer, and other smoking related diseases. Considering risks,??patient's health will greatly benefit from smoking cessation,??and will benefit from optimizing pharmacotherapy with use of??varenicline, nicotine patch, nicotine lozenge. Inpatient and discharge medications.? Will follow up with patient??2-3 weeks after discharge. ?? I spent a total of 30??minutes educating and counseling patient on smoking cessation. ?? 2.??Substance use ??Patient currently living in sober house has been alcohol free for 11 months. Orders: Nicotine, 4 mg, Lozenge, By Mouth, Every hour, PRN for Other, Nicotine Withdrawal Symptoms (not to exceed 20 lozenges per day), Routine, 03/29/24 16:34:00 EDT Nicotine, 21 mg, Patch, Topically, Apply to Other : skin, Daily, Routine, 03/30/24 9:00:00 EDT Remove Patch, 1 each, Patch, Topically, Apply to Other : skin, Daily, Remove existing Nicotine Topical patch prior to new patch application., Routine, 03/30/24 9:00:00 EDT Varenicline, 0.5 mg, Tablet, By Mouth, Daily for 3 days, Routine, 03/30/24 9:00:00 EDT, Stop date 04/02/24 8:59:00 EDT Varenicline, 0.5 mg, Tablet, By Mouth, 2 times a day for 4 days, Routine, 04/01/24 9:00:00 EDT, Stop date 04/05/24 8:59:00 EDT Varenicline, 1 mg, Tablet, By Mouth, 2 times a day, Routine, 04/05/24 9:00:00 EDT NRT Patient Instructions Allergies aspirin penicillins??(hives) traMADol??(racing thoughts) Home Medications Acetaminophen: 500 mg = 1 tablet, By Mouth, 4 times a day, NEEDED FOR PAIN FOR 10 DAYS MAX 4 TABS PER DAY Albuterol: 180 mcg = 2 puffs, Inhalation, Every 4 hours, PRN (Wheezing/Shortness of Breath) Amlodipine: 5 mg, By Mouth, Daily Atorvastatin: 20 mg = 1 tablet, By Mouth, Daily BusPIRone: 15 mg = 1 tablet, By Mouth, 3 times a day ChlorproMAZINE: 200 mg = 1 tablet, By Mouth, Daily at bedtime Cholecalciferol: 50 mcg = 1 tablet, By Mouth, Daily Cyanocobalamin: 1,000 mcg = 1 tablet, By Mouth, Daily Duloxetine: 20 mg = 1 capsule, By Mouth, 2 times a day Gabapentin: 600 mg = 1 tablet, By Mouth, 3 times a day HydrOXYzine: 100 mg = 1 capsule, By Mouth, 3 times a day, PRN (for anxiety) Levothyroxine: 25 mcg = 1 tablet, By Mouth, Daily Lidocaine/Prilocaine Topical: 1 application, Topically, Once, apply to both feet prior to appointment Meclizine: 25 mg = 1 tablet, By Mouth, 3 times a day, PRN (for dizziness) Melatonin: 5 mg = 1 tablet, By Mouth, Daily at bedtime, PRN (for insomnia) Metoprolol: 25 mg, By Mouth, Daily Oxycodone: TAKE 1 TABLET BY MOUTH EVERY 8 HOURS NEEDED FOR PAIN FOR 7 DAYS ONLY FOR SEVERE PAIN Pantoprazole: 80 mg = 2 tablet, By Mouth, Daily Sertraline: 150 mg = 1.5 tablet, By Mouth, Daily Sulfamethoxazole/Trimethoprim: 1 tablet, By Mouth, Every 12 hours, FOR 10 DAYS Tamsulosin: 0.4 mg = 1 capsule, By Mouth, Daily Thiamine: 100 mg = 1 tablet, By Mouth, Daily Tiotropium: 2.5 mcg = 2 puffs, Inhalation, Daily Triamcinolone Topical: APPLY TOPICALLY 2 TIMES A DAY Hospital Medications Medications (36) Active SCHEDULED: (21) Amlodipine 5 mg Tablet (amLODIPine 5 mg oral tablet) ??5 mg, By Mouth, Daily Atorvastatin 20 mg Tablet (atorvastatin 20 mg oral tablet) ??20 mg, By Mouth, Daily at bedtime Ceftriaxone 1 Gm Inj (Ceftriaxone Inj) ??1 Gm, IVPB, Every 24 hours ChlorproMAZINE 50 mg Tablet (chlorproMAZINE 50 mg oral tablet) ??200 mg, By Mouth, Daily at bedtime Doxycycline 100 mg Tablet (Doxycycline Tablet) ??100 mg, By Mouth, 2 times a day Duloxetine 20 mg Capsule (DULoxetine Capsule) ??20 mg, By Mouth, 2 times a day Enoxaparin 40 mg Inj (Enoxaparin Inj) ??40 mg 0.4 mL, Subcutaneous Injection, Daily Gabapentin 300 mg Capsule (gabapentin 300 mg oral capsule) ??300 mg, By Mouth, 2 times a day Levothyroxine 25 mcg Tablet (levothyroxine 0.025 mg oral tablet) ??25 mcg, By Mouth, Daily Magnesium Sulfate 2 Gm /50 mL (Magnesium Sulfate IVPB) ??2 Gm 50 mL, IVPB, Every 2 hours Metoprolol 25 mg XL Tablet (Metoprolol ??XL Tablet) ??25 mg, By Mouth, Daily Mupirocin 2% Oint 22 Gm (Mupirocin Topical Oint) ??1 application, Topically, 3 times a day NaCl 0.9% Flush 3ml (NaCL 0.9% Flush) ??3 mL, IV Push, Every 8 hours Nicotine 21 mg / 24 hour Patch (Nicotine Topical) ??21 mg, Topically, Daily Pantoprazole 40 mg EC Tablet (pantoprazole 40 mg oral delayed release tablet) ??40 mg, By Mouth, 2 times a day Phos-NaK Oral Powder ??1 pack/packet, By Mouth, 2 times a day Remove Patch (Remove ??Patch) ??1 each, Topically, Daily Sertraline 50 mg Tablet (sertraline 50 mg oral tablet) ??150 mg, By Mouth, Daily Varenicline 0.5 mg Tablet (Varenicline Tablet) ??0.5 mg, By Mouth, Daily Varenicline 0.5 mg Tablet (Varenicline Tablet) ??0.5 mg, By Mouth, 2 times a day Varenicline 1 mg Tablet (Varenicline Tablet) ??1 mg, By Mouth, 2 times a day CONTINUOUS: (2) Lactated Ringers (1000 mL) Cont IV 1,000 mL (Bolus LR 1,000 mL) ??1,000 mL, IV Infusion Lactated Ringers (1000 mL) Cont IV 1,000 mL (LR 1,000 mL) ??1,000 mL, IV Infusion, 100 mL/hr PRN: (13) Acetaminophen 325 mg Tablet (Acetaminophen Tablet) ??650 mg, By Mouth, Every 4 hours Dextromethorphan-Guaifenesin 20 mg-200 mg/10 [...] ??3 mL, IV Push, Every 8 hours Nicotine Lozenge 4mg (Nicotine Lozenge) ??4 mg, By Mouth, Every hour Ondansetron 2mg/mL Inj (2mL Vial) (Ondansetron Inj) ??4 mg, IV Push, Every 6 hours OxyCODONE 5 mg IR Tablet (oxyCODONE 5 mg oral tablet) ??10 mg, By Mouth, Every 4 hours Polyethylene Glycol 17 Gm Powder (MiraLax Powder) ??17 Gm 1 pack/packet, By Mouth, Daily Senna Tablet ??8.6 mg 1 tablet, By Mouth, 2 times a day Simethicone 80 mg Chewable Tablet (Simethicone Tablet) ??80 mg, Chew, 3 times a day Lab Results Cardiology Labs WBC: 8.8 k/mm3 (03/29/24) RBC:??4.33 m/mm3??Low (03/29/24) Hgb:??11.3 Gm/dL??Low (03/29/24) Hct:??34.7 %??Low (03/29/24) MCV: 80.1 femtoliters (03/29/24) MCH:??26.1 pg??Low (03/29/24) MCHC:??32.6 g/dL??Low (03/29/24) Platelet Count: 244 k/mm3 (03/29/24) RDW-SD: 38.5 femtoliters (03/29/24) Nucleated RBC (Automated): 0 #/100 WBC'S (03/29/24) Abs. Neut:??8.1 k/mm3??High (03/28/24) Abs. Lymph: 1.1 k/mm3 (03/28/24) Abs. [place]: 0.5 k/mm3 (03/28/24) Abs. Eo: 0.2 k/mm3 (03/28/24) Abs. Baso: 0.1 k/mm3 (03/28/24) Neut %:??80.7 %??High (03/28/24) [place] %: 5.3 % (03/28/24) Eos %: 2.3 % (03/28/24) Baso %: 0.5 % (03/28/24) Imm Gran: 0.4 % (03/28/24) Abs. Imm Gran: 0 k/mm3 (03/28/24) Sodium: 137 mmol/L (03/29/24) Potassium: 3.9 mmol/L (03/29/24) Chloride: 99 mmol/L (03/29/24) Bicarbonate Level: 24 mmol/L (03/29/24) Glucose Level:??101 mg/dL??High (03/29/24) Hemoglobin A1C (Monitoring): 4.8 % (05/26/23) BUN: 11 mg/dL (03/29/24) Creatinine-Blood: 0.82 mg/dL (03/29/24) Calcium: 9 mg/dL (03/29/24) Protein, Total:??5.8 Gm/dL??Low (03/27/24) Albumin: 3.7 Gm/dL (03/27/24) Alkaline Phosphatase:??161 units/L??High (03/27/24) AST (SGOT): 25 units/L (03/27/24) ALT (SGPT): 22 units/L (03/27/24) Bilirubin, Total: 0.3 mg/dL (03/27/24) CK, Total: 182 units/L (05/12/23) Nt-Probnp: 58 pg/mL (03/26/24) Cholesterol:??245 mg/dL??High (05/26/23) Triglycerides:??351 mg/dL??High (05/26/23) HDL Cholesterol:??39 mg/dL??Low (05/26/23) LDL Cholesterol:??136 mg/dL??High (05/26/23) Non HDL Cholesterol:??206 mg/dL??High (05/26/23) TSH: 2.33 uIU/mL (03/26/24) Diagnostic Impression ECG ECG 12-Lead ?? 19:34:20 Please click on pdf link to open report ?? Signed By: Fariba Valdez DO ?? ECG 12-Lead ?? 19:34:20 Ventricular Rate: 99 BPM Atrial Rate: 99 BPM P-R Interval: 160 ms QRS Duration: 92 ms Q-T Interval: 376 ms QTC Calculation(Bazett): 482 ms P Emerson: 44 degrees R Emerson: -47 degrees T Emerson: 81 degrees Normal sinus rhythm Left anterior fascicular block Minimal voltage criteria for LVH, may be normal variant ( R in aVL ) Septal infarct , age undetermined Abnormal ECG When compared with ECG of 22-MAY-2023 11:36, Septal infarct is now Present Confirmed by FARIBA VALDEZ MD ([id number]) on 03/27/2024 7:14:07 PM ?? [place]: FARIBA VALDEZ MD ?? Signed By: Fariba Valdez DO Problem List/Past Medical History Ongoing Anxiety disorder [...] hernia repair: 09/14/81 Dilatation of esophageal stricture Social History Alcohol Use: Current. Frequency: Daily. Type: Beer. Other: 12 pack of beer. Employment/School Status: Disabled. Other: primary caregiver for [...] Started at age: 15 Years. Family History Mother: AAA - Abdominal aortic aneurysm; Congenital heart disease; Hyperlipidemia Sister: Lupus ? 20-JAN-2015 22:35:10<$> Admission evaluation note * Chet KEY, Brittni Cordon: PERFORM, MODIFY Event Display: Admission Note Authored Date: [id number] Patient: ??GLENNYDOMINGA JACQUES ? Age:??58 Years?Sex:??Male?:??1965?? Chief Complaint/Reason for Consultation comes from sober living with weakness and tremulous. ??no seizure like activity, no falls or headstrike. ??recent JEWEL/rhambdo History of Present Illness 58-year-old male patient with past medical history of essential hypertension, dyslipidemia, hypothyroidism, asthma, anxiety, history of polysubstance abuse, DVTs not on anticoagulation who was brought from sober living for evaluation of general weakness and tremors.?? He reported feeling weak and fatigued for the past 2 weeks associated with intermittent tremors.?? He also reported decreased p.o.intake and he feels he is dehydrated.?? He denies weight loss, fall, or loss of consciousness.?? Hedenies fever, chills, nausea, vomiting, diarrhea, constipation, shortness of breath, chest pain or any other associate symptoms upon presentation to the emergency department, he was hemodynamically stable blood pressure of 114/79 however he was hypoxic down to 80s requiring up to 4 L to maintain saturation above 90%.?? Initial blood work was notable for acute kidney injury with creatinine 1.56 (baseline creatinine 1.1) otherwise unremarkable.?? Chest x-ray was obtained, reviewed by myself with bilateral basilar opacities likely atelectasis however there is still concern of pneumonia.?? CT brain without acute intracranial normalities.?? Patient was given IV antibiotics and admitted under medicine for further management and evaluation.?? Upon evaluation, as a consult bilirubin since distress,??he started??Bactrim??couple days ago??that was prescribed by his PCP. Review of Systems A full review of systems was completed and is otherwise negative except as mentioned in history of present illness. Objective ? Vital Signs?? Temperature: 97.6 DegF (03/26/24 20:16:00) Temperature Route: Oral (03/26/24 20:16:00) Pulse Rate: 79 bpm (03/26/24 23:00:00) Respiratory Rate: 16 br/min (03/27/24 00:40:00) Systolic Blood Pressure: 114 mm Hg (03/26/24 23:00:00) Diastolic Blood Pressure: 79 mm Hg (03/26/24 23:00:00) Blood pressure sites: Arm, right (03/26/24 20:16:00) Mean Arterial Pressure: 91 mm Hg (03/26/24 23:00:00) Pulse Pressure: 35 mm Hg (03/26/24 23:00:00) Oxygen Saturation: 100 % (03/26/24 23:00:00) Liters per Minute: 4 L/min (03/26/24 23:00:00) Mode of Delivery (Oxygen): Nasal cannula (03/26/24 23:00:00) ? Intake/Output? No Data Available ? Physical Exam General Appearance: The patient is in NAD. Head: atraumatic EENT: MMM, no scleral icterus Cardiovascular: RRR no MRG Respiratory:?? Breath sounds clear to auscultation bilaterally. No wheezing. room air. GI: Soft. Nontender and nondistended. Normal bowel sounds present throughout abdomen. MS:?? No edema or erythema in the lower extremities. Peripheral sensation intact. Skin: warm, dry, no rashes Neuro:?? No slurred speech.?? Patient seen moving their upper and lower extremities independently. Psych: calm Lines: Peripheral IV in place. Assessment/Plan Diagnoses Acid reflux ??(K21.9) Acute hypoxemic respiratory failure ??(J96.01) Acute kidney injury ??(N17.9) Community acquired pneumonia ??(J18.9) Dehydration ??(E86.0) Dyslipidemia ??(E78.5) Elevated vitamin B12 level ??(R74.8) Essential hypertension ??(I10) General weakness ??(R53.1) Hypothyroidism ??(E03.9) Mood disorder ??(F39) ?? I will take the second 1 after the ?? Acute hypoxemic respiratory failure (J96.01) ?Grouped with??General weakness (R53.1),??Dehydration (E86.0),??Community acquired pneumonia (J18.9) ? Patient with a persistent medical history as noted above??who was brought to the emergency department for evaluation of??generalized weakness and tremors. Was found hypoxic down to 80s requiring up to 4 L??to maintain sats??above 90%. Chest x-ray with questionable pneumonia. Labs??without??leukocytosis. Continue to monitor. Continue oxygen supplementation as needed, wean down/off as tolerated.? Procalcitonin has been added to help with antibiotics de-escalation. Continue IV antibiotics. Strep and Legionella antigens. Continue supportive management. Unclear why he is hypoxic??without impressive evidence of pneumonia on chest x-ray. I have added??inflammatory markers.??He may need further imaging such as CT abdomen??or chest??for further investigation??if inflammatory markers are elevated??and no improvement of his symptoms withantibiotics??to look for other etiologies such as ominous pathology Continue to monitor ?? Acid reflux (K21.9):??Resume pantoprazole ?? Mood disorder (F39):??Continue chlorpromazine, Cymbalta, hydroxyzine as needed and Zoloft ?? Dyslipidemia (E78.5):??Resume??statin ?? Essential hypertension (I10):??Resume amlodipine ?? Acute kidney injury (N17.9):??Creatinine 1.56 (baseline creatinine 1.1). Presumed??prerenal in the setting of decreased p.o. intake or??secondary chest x-ray effects from??Bactrim. Obtain urine lites and urine supplies. IV hydration encourage p.o. hydration Further workup may be needed ?? Hypothyroidism (E03.9):??TSH is normal. Resume levothyroxine.? Elevated vitamin B12 level (R74.8):??vitamin b12 is in 1800s needs to be followed up as outpatient? VTE Prophylaxis:??Lovenox ?VTE Prophylaxis Assessment:??VTE Prophylaxis Ordered ?? Discharge Planning:? Code Status:??Full code ?Order Code Status:??Code Status Ordered ? Admitted in ED on talking Histories Allergies Allergies ?(Active and Proposed Allergies Only) traMADol? (Severity: Unknown severity, Onset: Unknown) ?Reactions: racing thoughts penicillins? (Severity: Unknown severity, Onset: Unknown) ?Reactions: hives aspirin? (Severity: Unknown severity, Onset: Unknown) ? Past Medical History/Problem List Active Problems(22) Anxiety disorder Anxious depression Asthma Benign hypertension [...] 20-JAN-2015 22:35:10<$> ? Medications Home Medications Albuterol (albuterol CFC free 90 mcg/inh inhalation aerosol)?2?puff(s)?Inhalation?Every4 hours?as needed?Wheezing/Shortness of Breath Amlodipine (amLODIPine 5 mg oral tablet)?5?Milligram?By Mouth?Daily?for 30?Days Atorvastatin (atorvastatin 10 mg oral tablet)?10?Milligram?By Mouth?Daily at bedtime?for 30?Days BusPIRone (busPIRone 15 mg oral tablet)?1?tab(s)?15?Milligram?By Mouth?3 times a day ChlorproMAZINE (chlorproMAZINE 200 mg oral tablet)?1?tab(s)?200?Milligram?By Mouth?Daily at bedtime?for 30?Days Cholecalciferol (Vitamin D3 2000 intl units oral tablet)?1?tab(s)?50?Microgram?By Mouth?Daily?for 30?Days Clonidine (cloNIDine 0.2 mg oral tablet)?0.2?Milligram?1?tablet?By Mouth?2 times a day Gabapentin (gabapentin 300 mg oral capsule)?300?Milligram?By Mouth?2 times a day?for30?Days HydrOXYzine (hydrOXYzine pamoate 100 mg oral capsule)?1?capsule?100?Milligram?By Mouth?3 times a day?as needed?for anxiety?for 30?Days Levothyroxine (levothyroxine 0.025 mg oral tablet)?1?tab(s)?25?Microgram?By Mouth?Daily Melatonin (melatonin 5 mg oral tablet)?1?tab(s)?5?Milligram?By Mouth?Daily at bedtime?as needed?for insomnia?for 30?Days Metoprolol (metoprolol 25 mg oral tablet, extended release)?25?Milligram?By Mouth?Daily?for 30?Days Pantoprazole (pantoprazole 40 mg oral delayed release tablet)?40?Milligram?By Mouth?2 times a day Sertraline (sertraline 100 mg oral tablet)?1?tab(s)?100?Milligram?By Mouth?Daily Tiotropium (tiotropium 1.25 mcg/inh inhalation aerosol)?2?puff(s)?2.5?Microgram?Inhalation?Daily ? Results Recent Labs BLOOD COUNT & DIFF WBC 8.8 k/mm3 ()?? 03/26/2024 19:57 RBC 5.08 m/mm3 ()?? 03/26/2024 19:57 Hgb 13.3 Gm/dL (Low)?? 03/26/2024 19:57 Hct 40.5 % ()?? 03/26/2024 19:57 MCV 79.7 femtoliters (Low)?? 03/26/2024 19:57 MCH 26.2 pg (Low)?? 03/26/2024 19:57 MCHC 32.8 g/dL (Low)?? 03/26/2024 19:57 Platelet Count 263 k/mm3 ()?? 03/26/2024 19:57 RDW-SD 39.5 femtoliters ()?? 03/26/2024 19:57 MPV 8.9 femtoliters (Low)?? 03/26/2024 19:57 Nucleated RBC (Automated) 0.0 #/100 WBC'S ()?? 03/26/2024 19:57 Abs. NRBC 0.0 k/mm3 ()?? 03/26/2024 19:57 Abs. Neut 6.5 k/mm3 ()?? 03/26/2024 19:57 Abs. Lymph 1.4 k/mm3 ()?? 03/26/2024 19:57 Abs. Chaffee 0.5 k/mm3 ()?? 03/26/2024 19:57 Abs. Eo 0.2 k/mm3 ()?? 03/26/2024 19:57 Abs. Baso 0.1 k/mm3 ()?? 03/26/2024 19:57 Neut % 74.3 % ()?? 03/26/2024 19:57 Lymph % 15.7 % ()?? 03/26/2024 19:57 [place]af[place] % 6.2 % ()?? 03/26/2024 19:57 Eos % 2.5 % ()?? 03/26/2024 19:57 Baso % 0.8 % ()?? 03/26/2024 19:57 Imm Gran 0.5 % ()?? 03/26/2024 19:57 Abs. Imm Gran 0.0 k/mm3 ()?? 03/26/2024 19:57 ?? CARDIAC Nt-Probnp 58 pg/mL ()?? 03/26/2024 19:57 High Sensitivity Troponin (HSTnT) 19 ng/L ()?? 03/26/2024 19:57 ?? CHEM GENERAL Sodium 142 mmol/L ()?? 03/26/2024 19:57 Potassium 3.8 mmol/L ()?? 03/26/2024 19:57 Chloride 104 mmol/L ()?? 03/26/2024 19:57 Bicarbonate Level 22 mmol/L ()?? 03/26/2024 19:57 Anion Gap 16 ()?? 03/26/2024 19:57 Glucose Level 129 mg/dL (High)?? 03/26/2024 19:57 Glucose, POC 114 mg/dL (High)?? 03/26/2024 20:02 BUN 30 mg/dL (High)?? 03/26/2024 19:57 Creatinine-Blood 1.56 mg/dL (High)?? 03/26/2024 19:57 Estimated GFR Creatinine 51 ML/MIN/1.73 M2 ()?? 03/26/2024 19:57 Calcium 9.6 mg/dL ()?? 03/26/2024 19:57 Vitamin B12 Level 1838 pg/mL (High)?? 03/26/2024 19:57 Lactate 0.7 mmol/L ()?? 03/26/2024 21:30 ?? ENDOCRINE/TUMOR MARKER TSH 2.33 uIU/mL ()?? 03/26/2024 19:57 ?? HEME OTHER Hold Blue Top SPECIMEN DISCARDED AFTER 4 HOURS. ()?? 03/27/2024 00:42 ? EKG study * Event Display: ECG 12-Lead Authored Date: Please click on pdf link to open report * Event Display: ECG 12-Lead Authored Date: Ventricular Rate: 99 BPM Atrial Rate: 99 BPM P-R Interval: 160 ms QRS Duration: 92 ms Q-T Interval: 376 ms QTC Calculation(Bazett): 482 ms P Emerson: 44 degrees R Emerson: -47 degrees T Emerson: 81 degrees Normal sinus rhythm Left anterior fascicular block Minimal voltage criteria for LVH, may be normal variant ( R in aVL ) Septal infarct , age undetermined Abnormal ECG When compared with ECG of 22-MAY-2023 11:36, Septal infarct is now Present Confirmed by FARIBA VALDEZ MD ([id number]) on 03/27/2024 7:14:07 PM [place]: FARIBA VALDEZ MD Cardiology * Event Display: Cardiac Rhythm Strips Authored Date: Hospital Progress note * Elena Dominguez RN: PERFORM, SIGN, VERIFY Event Display: Progress Note Hospital Authored Date: Patient: DOMINGA MURRIETA Age: 58 years Sex: Male : 1965 Associated Diagnoses: None Author: Elena Dominguez RN Patient is alert and oriented to person/place/time, forgetful at times and impulsive. Overnight patient thought there were children playing in the room , reoriented patient and fall precautions remain in place, VVS on room air. No acute issues overnight. * Margot KEY, July Pollard: PERFORM Event Display: Progress Note Hospital Authored Date: Patient: ??DOMINGA MURRIETA ? Age:??58 Years?Sex:??Male?:??1965?? Subjective Patient seen in follow-up There is concern for weight loss however the history is very inconsistent. ??Patient??[facility] stating that he is lost 40 pounds within the past??1 month however when??the chart is reviewed it appears that??his weight has been fluctuating between??79 and 71 kg for the past 1 year with no significant weight reduction. His appetite is??variable Patient also stating that he has been shaking but then states that it has been??present since??2016and is only when he??attempts to ambulate He has been seen by??neurology in the past for polyneuropathy with EMG showing large fiber??neuropathy. Review of Systems As above Objective Measurements?? Height: 165 cm (03/30/24) Weight: 71.3 kg (03/27/24) Dry Weight: 71.3 kg (03/27/24) Body Mass Index:??26.19 kg/m2??High (03/27/24) ? Vital Signs?? Temperature: 97.7 DegF (03/30/24 14:58:00) Temperature Route: Oral (03/30/24 14:58:00) Pulse Rate: 89 bpm (03/30/24 14:59:00) Respiratory Rate: 16 br/min (03/30/24 14:58:00) Systolic Blood Pressure: 119 mm Hg (03/30/24 14:59:00) Diastolic Blood Pressure: 74 mm Hg (03/30/24 14:59:00) Blood pressure sites: Arm, left (03/30/24 14:58:00) Mean Arterial Pressure: 89 mm Hg (03/30/24 14:58:00) Pulse Pressure: 45 mm Hg (03/30/24 14:58:00) Oxygen Saturation:??91 %??Low (03/30/24 14:58:00) Liters per Minute: 2 L/min (03/30/24 00:10:00) Mode of Delivery (Oxygen): Room air (03/30/24 14:58:00) Early Warning Score: 4 (03/30/24 14:59:48) ? Intake/Output? 03/27 00:59 03/30 07:00 03/29 07:00 03/28 07:00 03/27 07:00 ?? 03/30 16:04 03/30 16:04 03/30 06:59 03/29 06:59 03/28 06:59 Intake ? 8534 ?237 ? 3337 ? 2020 ? 2290 Output ? 7250 ?200 ? 3000 ? 2950 ? 1100 Net Total ? 1284 ? 37 ?337 ? -930 ? 1190 ? Urine Count ?0 ?0 ?0 ?0 ?0 ? Physical Exam General: Is appears comfortable in no distress HEENT: ??mucous mucous membranes appear wet, PERRLA Cardiovascular: S1-S2 heard no murmurs appreciated Respiratory:??Clear to auscultation GI: Abdomen nontender to palpation, no distention, no obvious hepatosplenomegaly Neuro:??AAOx3, no focal deficits??is deconditioned Psych: Appears calm without any agitation _ Inpatient Medications Medications (34) Active SCHEDULED: (21) Amlodipine 5 mg Tablet (amLODIPine 5 mg oral tablet) ??5 mg, By Mouth, Daily Atorvastatin 20 mg Tablet (atorvastatin 20 mg oral tablet) ??20 mg, By Mouth, Daily at bedtime Cefpodoxime 200 mg Tablet (Cefpodoxime Tablet) ??200 mg, By Mouth, Every 12 hours ChlorproMAZINE 50 mg Tablet (chlorproMAZINE 50 mg oral tablet) ??200 mg, By Mouth, Daily at bedtime Doxycycline 100 mg Tablet (Doxycycline Tablet) ??100 mg, By Mouth, 2 times a day Duloxetine 20 mg Capsule (DULoxetine Capsule) ??20 mg, By Mouth, 2 times a day Enoxaparin 40 mg Inj (Enoxaparin Inj) ??40 mg 0.4 mL, Subcutaneous Injection, Daily Gabapentin 300 mg Capsule (gabapentin 300 mg oral capsule) ??300 mg, By Mouth, 2 times a day Levothyroxine 25 mcg Tablet (levothyroxine 0.025 mg oral tablet) ??25 mcg, By Mouth, Daily Metoprolol 25 mg XL Tablet (Metoprolol ??XL Tablet) ??25 mg, By Mouth, Daily Midodrine 5 mg Tablet (midodrine 5 mg oral tablet) ??2.5 mg, By Mouth, 3 times a day Mupirocin 2% Oint 22 Gm (Mupirocin Topical Oint) ??1 application, Topically, 3 times a day NaCl 0.9% Flush 3ml (NaCL 0.9% Flush) ??3 mL, IV Push, Every 8 hours Nicotine 21 mg / 24 hour Patch (Nicotine Topical) ??21 mg, Topically, Daily Pantoprazole 40 mg EC Tablet (pantoprazole 40 mg oral delayed release tablet) ??40 mg, By Mouth, 2 times a day Phos-NaK Oral Powder ??1 pack/packet, By Mouth, 2 times a day Remove Patch (Remove ??Patch) ??1 each, Topically, Daily Sertraline 50 mg Tablet (sertraline 50 mg oral tablet) ??150 mg, By Mouth, Daily Varenicline 0.5 mg Tablet (Varenicline Tablet) ??0.5 mg, By Mouth, Daily Varenicline 0.5 mg Tablet (Varenicline Tablet) ??0.5 mg, By Mouth, 2 times a day Varenicline 1 mg Tablet (Varenicline Tablet) ??1 mg, By Mouth, 2 times a day CONTINUOUS: (0) PRN: (13) Acetaminophen 325 mg Tablet (Acetaminophen Tablet) ??650 mg, By Mouth, Every 4 hours Dextromethorphan-Guaifenesin 20 mg-200 mg/10 [...] ??3 mL, IV Push, Every 8 hours Nicotine Lozenge 4mg (Nicotine Lozenge) ??4 mg, By Mouth, Every hour Ondansetron 2mg/mL Inj (2mL Vial) (Ondansetron Inj) ??4 mg, IV Push, Every 6 hours OxyCODONE 5 mg IR Tablet (oxyCODONE 5 mg oral tablet) ??10 mg, By Mouth, Every 4 hours Polyethylene Glycol 17 Gm Powder (MiraLax Powder) ??17 Gm 1 pack/packet, By Mouth, Daily Senna Tablet ??8.6 mg 1 tablet, By Mouth, 2 times a day Simethicone 80 mg Chewable Tablet (Simethicone Tablet) ??80 mg, Chew, 3 times a day ? 72 Hour Antibiotic History Active Antibiotics Calendar Day Last Administered First Administered Doxycycline??100 mg, By Mouth, 2 times a day ?4 03/30/2024 08:31 03/27/2024 13:06 ? Stopped Antibiotics Stop Date/Time Last Administered First Administered Ceftriaxone??1 Gm, 100 mL/hr, IVPB, Every 24 hours 03/30/2024 09:28 03/29/2024 21:34 03/27/2024 21:16 ? Results ? LFT?? No qualifying data available. ?? Microbiology ?? COVID-19 (2019 Novel Coronavirus) PCR?? Completed?? Source: Nasal Body Site: Nose Collected Dt/Tm: 03/27/2024 00:52 Last Updated Dt/Tm: 03/27/2024 01:54 ?? Blood Culture?? Completed?? Source: Blood Body Site: ?? Collected Dt/Tm: 03/26/2024 21:32 Last Updated Dt/Tm: 03/28/2024 09:11 ?? Blood Culture 2 Results?? Completed?? Source: Blood Body Site: ?? Collected Dt/Tm: 03/26/2024 21:30 Last Updated Dt/Tm: 03/28/2024 09:11 ?? Blood Culture #2?? Completed?? Source: Blood Body Site: ?? Collected Dt/Tm: 03/26/2024 21:22 Last Updated Dt/Tm: 03/28/2024 09:11 ?? Blood Culture Result?? Completed?? Source: Blood Body Site: ?? Collected Dt/Tm: 03/26/2024 21:22 Last Updated Dt/Tm: 03/28/2024 09:11 ?? Respiratory Pathogen PCR with COVID-19?? Collected?? Source: Nasal Body Site: Nose Collected Dt/Tm: 03/26/2024 20:55 Last Updated Dt/Tm: 03/26/2024 20:55 ? Uric/LDH?? No qualifying data available. ? Assessment/Plan comes from sober living with weakness and tremulous. ??no seizure like activity, no falls or headstrike. ??recent JEWEL/rhambdo ?? Acute hypoxemic respiratory failure (J96.01) ?Grouped with??General weakness (R53.1),??Dehydration (E86.0),??Community acquired pneumonia (J18.9) -Initially found to be hypoxic in 80s requiring 4 L -Chest x-ray with suspected pneumonia??but labs without any leukocytosis and no fever and no SIRS -Currently patient's hypoxia seems to have resolved??while on ceftriaxone and doxycycline, today isday 4 out of 5 for antibiotics. -D-dimer??0.68 not impressive??especially that was done on the second day??of admission? #dizziness: Orthostatic hypotension Polyneuropathy Patient reported one of the reasons for coming to the hospital was dizziness Orthostatic vitals were checked and is positive. ??Starting on midodrine 2.5 mg 3 times daily Was initially dehydrated but now has been volume resuscitated -Troponins negative for ischemia, patient denies any chest pain -D-dimer not impressive for PE?? -No concern for focal deficits?? Suspect the??dizziness is??caused by the orthostatic hypotension which is most likely secondary to the alcoholic polyneuropathy He does have a history of??shaking but it appears that this is??present when ambulating and??may nettie sign of deconditioning or the neuropathy Has??had??EEG in the past which showed no seizure activity ? #??Hypomagnesemia:?? #??Hypophosphatemia: Recheck magnesium and phosphate levels tomorrow Repletion ?? #??Furuncle:??Patient has??furuncles on the??scalp??as well as hand, mupirocin cream ordered??3 times, likely poor hygiene at sober house ?? # Acid reflux (K21.9):??pantoprazole ?? Mood disorder (F39): Dysthymia History of psychiatric admission This time also complaining of severe depression Evaluated by psychiatry. ??No need for psychiatry intervention Recommended??continuing home medications Continue chlorpromazine, Cymbalta, hydroxyzine as needed and Zoloft Has been complaining of weight loss??with??no objective evidence of it Given his history of??smoking a CT chest was ordered Will need outpatient follow-up for it ?? Dyslipidemia (E78.5):??Resume??statin ?? Essential hypertension (I10):??Resume amlodipine ?? Acute kidney injury (N17.9):?? Presumed??prerenal in the setting of decreased p.o. intake or due to Bactrim After adequate hydration renal function has returned to normal ?? Hypothyroidism (E03.9):??TSH is normal. Resume levothyroxine.? Elevated vitamin B12 level (R74.8):??vitamin b12 is in 1800s needs to be followed up as outpatient? VTE Prophylaxis:??Lovenox Code Status:??Full code ?? -Discharge planning:??PT evaluation done, recommendation is rehab Pending insurance authorization. ??Most likely be discharged with 4 hours ? * Vi Norwood RN: SIGN, VERIFY, PERFORM Event Display: Progress Note Hospital Authored Date: Patient: DOMINGA MURRIETA Age: 58 years Sex: Male : 1965 Associated Diagnoses: None Author: Vi Norwood RN Findings Problem Related to Alteration in Respiratory Function (new) : Alteration in Respiratory Function/new 03/30/2024 0:00 EDT Alteration in Resp Status Related to Other: Hypoxic respiratory failure Goals & Outcomes, Respiratory Pt will maintain/resume baseline physical assessment, Pt will maintain adequate nutritional intake, Pt will maintain/resume normal fluid/electrolyte balance, Pt willnot develop complications r/t immobility, Pt will demonstrate proper technique w/self care procedures Interventions, Respiratory Assess/monitor tolerance to IV infusions; verify rate/dose, Assess for and report S&S of respiratory distress, Position for comfort & optimal oxygenation, Monitor sputum color & consistency. Report changes to MD HAZEL Goals/Interventions, Respiratory Yes Respiratory, Problem Start 03/27/2024 6:23 Reviewed Plan with, Respiratory Patient Patient Progression, Respiratory Patient progressing according to plan . Nursing Data Respiratory/Pulmonary Data. 03/30/2024 0:10 EDT Mode of Delivery (Oxygen) Nasal cannula 03/30/2024 0:00 EDT Mode of Delivery (Oxygen) Room air 03/29/2024 23:53 EDT Respiratory Treatment(s) Cough and deep breathe 03/29/2024 23:51 EDT Respiratory Not Done: Assessment completed in flowsheets (Not Done) 03/29/2024 21:34 EDT Respiratory Symptoms None Respiratory effort Unlabored Chest expansion Symmetrical Tracheal Position Midline Accessory Muscles use No Cough No cough Respiratory pattern Regular All Lobes Breath Sounds Clear . Evaluation Pt A&Ox4. Tele reading NSR. No s/s of resp distress noted. SpO2 90% on RA. Pt placed on 2L nasal cannula, + effect, SpO2 98%. IV abx administered as scheduled. Continuous IVFs infusing. All needsmet at this time. Purposeful hourly rounding, call weathers within reach, safety measures in place. SeeCIS for full assessment and interactive flowsheets for details. . Note * Robson Feldman RN: PERFORM Event Display: Discharge/Transfer Note Hospital Authored Date: [id number] Nursing Discharge Note Entered On: 03/31/2024 18:57 EDT Performed On: 03/31/2024 18:56 EDT by Robson Feldman RN Nursing Discharge Note 2 Discharge Time : 03/31/2024 17:30 EDT Discharge Level of Care at Discharge : [facility] facility Discharge Nursing Homes/Rehab Facilities : [facility] Patient Left Unit Via : Wheelchair Patient Accompanied Off Unit with : Ambulance/Chair Van Personnel Handover Given to Transport Personnel : Yes DC Instructions Provided & Signed by Pt : Yes Patient Understands D/C Instructions : Yes Patient Instructions Discharge Signed : Yes Did Pt have Specialty Bed or Wound Vac : No Robson Feldman RN - 03/31/2024 18:56 EDT * Margot KEY, July Pollard: PERFORM Event Display: Discharge/Transfer Note Hospital Authored Date: [id number] Patient: ??DOMINGA MURRIETA ? Age:??58 Years?Sex:??Male?:??1965?? Patient Information Discharge Location: [facility] Primary Care Physician: Not on Staff, PCP Admit Date/Time: 07/14/24 00:59 Discharge Disposition Discharge Disposition: [facility] Facility/Rehab Discharge Diagnosis History of anxiety (Z86.59) History of depression (Z86.59) Tobacco use disorder (F17.200) Substance use (F19.90) Hypomagnesemia (E83.42) Hypokalemia (E87.6) Acute hypoxic respiratory failure (J96.01) Pneumonia (J18.9) Dehydration (E86.0) Generalized weakness (R53.1) Acute kidney injury (N17.9) Hypothyroidism (E03.9) Dizziness (R42) _ Discharge Medications Acetaminophen (acetaminophen 500 mg oral tablet)?1?tab(s)?500?Milligram?By Mouth?4 times a day? NEEDED FOR PAIN FOR 10 DAYS MAX 4 TABS PER DAY Albuterol (albuterol CFC free 90 mcg/inh inhalation aerosol)?2?puff(s)?Inhalation?Every4 hours?as needed?Wheezing/Shortness of Breath Amlodipine (amLODIPine 5 mg oral tablet)?5?Milligram?By Mouth?Daily?for 30?Days Atorvastatin (atorvastatin 20 mg oral tablet)?1?tab(s)?20?Milligram?By Mouth?Daily BusPIRone (busPIRone 15 mg oral tablet)?1?tab(s)?15?Milligram?By Mouth?3 times a day Cefpodoxime (cefpodoxime 200 mg oral tablet)?200?Milligram?By Mouth?Every 12 hours?for 1?Days ChlorproMAZINE (chlorproMAZINE 200 mg oral tablet)?1?tab(s)?200?Milligram?By Mouth?Daily at bedtime?for 30?Days Cholecalciferol (Vitamin D3 2000 intl units oral tablet)?1?tab(s)?50?Microgram?By Mouth?Daily?for 30?Days Cyanocobalamin (Vitamin B12 1000 mcg oral tablet)?1?tab(s)?1,000?Microgram?By Mouth?Daily Doxycycline (doxycycline hyclate 100 mg oral capsule)?100?Milligram?By Mouth?2 times a day?for 1?Days Duloxetine (duloxetine 20 mg oral enteric coated [...] mg oral tablet)?2.5?Milligram?By Mouth?3 times a day Mupirocin Topical (mupirocin 2% topical ointment)?1 zach?Topically?3 times a day?for 5?Days Nicotine (nicotine 21 mg/24 hr transdermal film, [...] of water ? Quality Measures Tobacco Use Treatment:?Cessation Medication Prescribed on Discharge:??Tobacco Cessation Medication Prescribed ? Medications Started Cefpodoxime (cefpodoxime 200 mg oral tablet)?200?Milligram?By Mouth?Every 12 hours?for 1?Days Doxycycline (doxycycline hyclate 100 mg oral capsule)?100?Milligram?By Mouth?2 times a day?for 1?Days Midodrine (midodrine 5 mg oral tablet)?2.5?Milligram?By Mouth?3 times a day Mupirocin Topical (mupirocin 2% topical ointment)?1 zach?Topically?3 times a day?for 5?Days Allergies Allergies ?(Active and Proposed Allergies Only) traMADol? (Severity: Unknown severity, Onset: Unknown) ?Reactions: racing thoughts penicillins? (Severity: Unknown severity, Onset: Unknown) ?Reactions: hives aspirin? (Severity: Unknown severity, Onset: Unknown) ? Hospital Course 58-year-old male brought in from a sober house with weakness and tremors. He was found to be in acute hypoxemic respiratory failure secondary to suspected community-acquired pneumonia and was admitted for further management. ?? In the ED he was hemodynamically stable but was hypoxic requiring 4 L. Of oxygen. Chest x-ray was suspicious for pneumonia and later confirmed with CT chest. There was no leukocytosis or fever. Was empirically started on ceftriaxone and doxycycline. He will be discharged on Thursday of cefpodoxime and doxycycline to complete the antibiotic course. Now has been weaned off oxygen. ?? He was reported to have dizziness. Orthostatic vitals were checked and were positive. Has been started on midodrine 2.5 mg 3 times daily. There is a component of physical debilitation. Physical therapy evaluated the patient and the recommendation was short-term rehab. He was initially dehydrated aswell but now has had volume resuscitation. He does most likely have orthostatic hypotension secondary to alcoholic polyneuropathy. He was complaining of shaking but there does not appear to be any history of seizure and has had an EEG done in the past which showed no seizure activity. ?? Had multiple electrolyte abnormalities including hypophosphatemia and hypomagnesemia which have nowbeen corrected. ?? Has a history of dysthymic disorder. Was evaluated by psychiatry who recommended continuing his home medications of chlorpromazine Cymbalta hydroxyzine and Zoloft. Had been complaining of weight losswithout objective evidence of it. Given his history of smoking a CT chest was ordered but did not show any suspicious masses. He will need to follow-up with his outpatient provider for evaluation of weight loss including routine malignancy screening. ?? Had JEWEL secondary to prerenal failure due to decreased p.o. intake. This has now normalized with IVfluids. ?? Patient was noted to have furuncles over the scalp and hand??secondary to poor hygiene. ??Has been started on mupirocin topical. ?? Patient is stable to be discharged to rehab. Anticipate less than 30 days stay. ?? Objective Measurements?? Height: 165 cm (03/30/24) Weight: 71.3 kg (03/27/24) Dry Weight: 71.3 kg (03/27/24) Body Mass Index:??26.19 kg/m2??High (03/27/24) ? Vital Signs?? Temperature: 97.3 DegF (03/31/24 08:00:00) Temperature Route: Oral (03/31/24 08:00:00) Pulse Rate: 87 bpm (03/31/24 09:04:00) Respiratory Rate: 18 br/min (03/31/24 13:37:00) Systolic Blood Pressure: 100 mm Hg (03/31/24 09:04:00) Diastolic Blood Pressure: 60 mm Hg (03/31/24 09:04:00) Blood pressure sites: Arm, left (03/31/24 08:00:00) Pulse Pressure: 40 mm Hg (03/31/24 08:00:00) Oxygen Saturation: 98 % (03/31/24 08:00:00) Mode of Delivery (Oxygen): Room air (03/31/24 08:00:00) Early Warning Score: 3 (03/31/24 13:37:17) ? . Physical Exam General: Is appears comfortable in no distress HEENT: ??mucous mucous membranes appear wet, PERRLA Cardiovascular: S1-S2 heard no murmurs appreciated Respiratory:??Clear to auscultation GI: Abdomen nontender to palpation, no distention, no obvious hepatosplenomegaly Neuro:??AAOx3, no focal deficits??is deconditioned Psych: Appears calm without any agitation Pending Results Add On Lab Order ordered on 03/26/2024 Add On Lab Order ordered on 03/27/2024 Add On Lab Order ordered on 03/27/2024 Add On Lab Order ordered on 03/27/2024 Add On Lab Order ordered on 03/27/2024 Chloride Urine ordered on 03/27/2024 Creatinine Urine ordered on 03/27/2024 Osmolality Urine ordered on 03/27/2024 Respiratory Pathogen PCR with COVID-19 ordered on 03/26/2024 Sodium Urine ordered on 03/27/2024 Strep Pneumoniae Urinary Ag ordered on 03/27/2024 Urinalysis w/hold for Urine Culture ordered on 03/26/2024 Follow-Up Appointments Added Follow Up ?Time Frame ?Comments Not on Staff, PCP?1 week: call to discuss follow up visit Post Discharge Care Diet: ??Regular Diet ?? Activity: ??Ambulate with assistance 3 times a day unless otherwise specified ?? Code Status: ??Full Resuscitation ?? Discharge ?03/31/24 15:01:00 EDT Home Health Face to Face ^HomeHealthFTF Results Discharge Labs BACTERIOLOGY Blood Culture Results Preliminary report ()?? 03/26/2024 21:22 Blood Culture Specimen Source BLOOD ()?? 03/26/2024 21:22 Blood Culture Isolate 1 Comment ()?? 03/26/2024 21:22 Blood Cult 2 Results Preliminary report ()?? 03/26/2024 21:30 Blood Culture 2 Specimen Source BLOOD ()?? 03/26/2024 21:30 Blood Culture 2 Isolate 1 Comment ()?? 03/26/2024 21:30 ?? BLOOD COUNT & DIFF WBC 8.7 k/mm3 ()?? 03/31/2024 11:45 RBC 4.42 m/mm3 (Low)?? 03/31/2024 11:45 Hgb 11.5 Gm/dL (Low)?? 03/31/2024 11:45 Hct 34.2 % (Low)?? 03/31/2024 11:45 MCV 77.4 femtoliters (Low)?? 03/31/2024 11:45 MCH 26.0 pg (Low)?? 03/31/2024 11:45 MCHC 33.6 g/dL ()?? 03/31/2024 11:45 Platelet Count 291 k/mm3 ()?? 03/31/2024 11:45 RDW-SD 38.5 femtoliters ()?? 03/31/2024 11:45 MPV 8.9 femtoliters (Low)?? 03/31/2024 11:45 Nucleated RBC (Automated) 0.0 #/100 WBC'S ()?? 03/31/2024 11:45 Abs. NRBC 0.0 k/mm3 ()?? 03/31/2024 11:45 Abs. Neut 8.1 k/mm3 (High)?? 03/28/2024 02:58 Abs. Lymph 1.1 k/mm3 ()?? 03/28/2024 02:58 Abs. Chaffee 0.5 k/mm3 ()?? 03/28/2024 02:58 Abs. Eo 0.2 k/mm3 ()?? 03/28/2024 02:58 Abs. Baso 0.1 k/mm3 ()?? 03/28/2024 02:58 Neut % 80.7 % (High)?? 03/28/2024 02:58 Lymph % 10.8 % (Low)?? 03/28/2024 02:58 [place] % 5.3 % ()?? 03/28/2024 02:58 Eos % 2.3 % ()?? 03/28/2024 02:58 Baso % 0.5 % ()?? 03/28/2024 02:58 Imm Gran 0.4 % ()?? 03/28/2024 02:58 Abs. Imm Gran 0.0 k/mm3 ()?? 03/28/2024 02:58 ?? CARDIAC Nt-Probnp 58 pg/mL ()?? 03/26/2024 19:57 High Sensitivity Troponin (HSTnT) 18 ng/L ()?? 03/27/2024 07:07 ?? CHEM GENERAL Sodium 136 mmol/L ()?? 03/31/2024 11:46 Potassium 4.0 mmol/L ()?? 03/31/2024 11:46 Chloride 98 mmol/L ()?? 03/31/2024 11:46 Bicarbonate Level 26 mmol/L ()?? 03/31/2024 11:46 Anion Gap 12 ()?? 03/31/2024 11:46 Glucose Level 112 mg/dL (High)?? 03/31/2024 11:46 Glucose, POC 142 mg/dL (High)?? 03/30/2024 02:00 BUN 14 mg/dL ()?? 03/31/2024 11:46 Creatinine-Blood 0.92 mg/dL ()?? 03/31/2024 11:46 Estimated GFR Creatinine 97 ML/MIN/1.73 M2 ()?? 03/31/2024 11:46 Calcium 9.1 mg/dL ()?? 03/31/2024 11:46 Phosphorus 3.4 mg/dL ()?? 03/31/2024 11:46 Magnesium 1.6 mg/dL ()?? 03/31/2024 11:46 Protein, Total 5.9 Gm/dL (Low)?? 03/31/2024 11:46 Albumin 3.6 Gm/dL ()?? 03/31/2024 11:46 AG Ratio 1.8 ()?? 03/27/2024 07:07 Alkaline Phosphatase 241 units/L (High)?? 03/31/2024 11:46 AST (SGOT) 27 units/L ()?? 03/31/2024 11:46 ALT (SGPT) 39 units/L ()?? 03/31/2024 11:46 Bilirubin, Total 0.6 mg/dL ()?? 03/31/2024 11:46 Bilirubin, Direct 0.3 mg/dL ()?? 03/31/2024 11:46 Bilirubin, Indirect 0.3 mg/dL ()?? 03/31/2024 11:46 Vitamin B12 Level 1838 pg/mL (High)?? 03/26/2024 19:57 Lactate 0.7 mmol/L ()?? 03/26/2024 21:30 C-Reactive Protein 3.6 mg/dL (High)?? 03/27/2024 07:07 ? COAG D-Dimer 0.68 mg/L FEU ()?? 03/28/2024 08:24 ? ENDOCRINE/TUMOR MARKER TSH 2.33 uIU/mL ()?? 03/26/2024 19:57 ? HEME OTHER Sed Rate 40 mm/hr (High)?? 03/27/2024 07:07 Hold Lavender Top SPECIMEN DISCARDED AFTER 24 HOURS. ()?? 03/27/2024 07:07 Hold Blue Top SPECIMEN DISCARDED AFTER 4 HOURS. ()?? 03/27/2024 00:42 ? MISC. CHEMISTRY Procalcitonin 0.06 ng/mL ()?? 03/26/2024 19:57 ? SEROLOGY INF DISEASE Legionella pneumophila Ab Non Reactive ()?? 03/27/2024 07:07 ? UA/URINALYSIS Hold Urine Testing Available 24 hours from Time of Collection ()?? 03/27/2024 13:45 ? URINE OTHER Creatinine, Urine Random 143.6 mg/dL ()?? 03/27/2024 13:45 Sodium, Urine Random 164 mmol/L ()?? 03/27/2024 13:45 Chloride, Urine Random 127 mmol/L ()?? 03/27/2024 13:45 Osmolality, Urine Random 748 mOsm/kg ()?? 03/27/2024 13:45 Est Creatinine Clearance 76.95 mL/min ()?? 03/31/2024 12:30 ? VIROLOGY Adenovirus by PCR NEGATIVE ()?? 03/27/2024 01:02 Coronavirus 229E by PCR (not COVID-19) NEGATIVE ()?? 03/27/2024 01:02 Coronavirus HKU1 by PCR (not COVID-19) NEGATIVE ()?? 03/27/2024 01:02 Coronavirus NL63 by PCR (not COVID-19) NEGATIVE ()?? 03/27/2024 01:02 Coronavirus OC43 by PCR (not COVID-19) NEGATIVE ()?? 03/27/2024 01:02 Human Metapneumovirus by PCR NEGATIVE ()?? 03/27/2024 01:02 Rhinovirus/Enterovirus by PCR NEGATIVE ()?? 03/27/2024 01:02 Influenza A by PCR NEGATIVE ()?? 03/27/2024 01:02 Influenza B by PCR NEGATIVE ()?? 03/27/2024 01:02 Parainfluenza 1 by PCR NEGATIVE ()?? 03/27/2024 01:02 Parainfluenza 2 by PCR NEGATIVE ()?? 03/27/2024 01:02 Parainfluenza 3 by PCR NEGATIVE ()?? 03/27/2024 01:02 Parainfluenza 4 by PCR NEGATIVE ()?? 03/27/2024 01:02 RSV by PCR NEGATIVE ()?? 03/27/2024 01:02 Bordetella Pertussis by PCR NEGATIVE ()?? 03/27/2024 01:02 Chlamydophila Pneumoniae by PCR NEGATIVE ()?? 03/27/2024 01:02 Mycoplasma Pneumoniae by PCR NEGATIVE ()?? 03/27/2024 01:02 COVID-19 PCR Specimen Source NASAL ()?? 03/27/2024 01:02 COVID-19 PCR Result NEGATIVE ()?? 03/27/2024 01:02 COVID-19 (SARS-CoV-2) by PCR NEGATIVE ()?? 03/27/2024 01:02 Bordetella Parapertussis by PCR NEGATIVE ()?? 03/27/2024 01:02 ? 45_ minutes spent on discharge * Danya Woodruff: PERFORM, SIGN, VERIFY Event Display: Case Management Discharge Plan Authored Date: [id number] Patient: DOMINGA MURRIETA Age: 58 years Sex: Male : 1965 Associated Diagnoses: None Author: Danya Woodruff Discharge Plan Case Management Discharge Plan : Case Management Discharge Plan Data 03/31/2024 14:02 EDT Discharge Level of Care at Discharge [facility] facility Discharge Nursing Homes/Rehab Facilities [facility] Name of Agency #1 [facility] Service Categories #1 Physical Therapy, [facility] * Gaston DAS, Robson: PERFORM Event Display: Patient Education/Instruction Authored Date: Inpatient Adult Discharge Instructions. [address] [address] Name: DOMINGA MURRIETA : 1965?? Visit: 03/27/2024 00:59?? Current Date: 03/31/2024 15:48 ?? Account: [id number]?? Inpatient Adult Discharge Instructions We would like [...] and their families. Surveys are administered by [employer] ?? If further treatment with your primary care physician or another doctor is recommended, it is important for you to keep the appointment. Call your primary care physician or return to the Emergency Department immediately if your condition worsens, fails to improve, or new symptoms develop. If you need to find a doctor, you can call [facility] [facility] for a referral at [phone] or toll free at [phone] [phone]) or log in to [email or web address] ?? [facility], in keeping with [facility] guidance, no longer requires face masks for [...] a health care zach of your choosing. [employer] is a website that allows you to securely view your medical information including your hospital discharge summary, office visit summaries, medications and follow-up visits. You can also request appointments, renew medications, and request access to your medical information using a health care zach of your choosing, or just ask a question. You can enroll at [email or web address] or register during your next office visit. You have been discharged from [facility], Patient Care Unit: D6B??. If you have any questions regarding these instructions, including results of studies pending, afteryou leave, please call us and we will be happy to assist you 06/04. [facility] Your Care Team Attending Physician July Frost MD?? Consulting Providers July Frost MD?? Discharging Providers July Frost MD Reason for Your Visit comes from sober living with weakness and tremulous. ??no seizure like activity, no falls or headstrike. ??recent JEWEL/rhambdo?? Your Diagnosis History of anxiety History of depression Tobacco use disorder Substance use Hypomagnesemia Hypokalemia Acute hypoxic respiratory failure Pneumonia Dehydration Generalized weakness Acute kidney injury Hypothyroidism Dizziness Tests Performed Below is a partial list of the tests performed during your hospitalization. You may have had other tests and procedures not included in this list. Please discuss all test results with your provider. Basic Metabolic Panel Blood Culture Blood Culture #2 Blood Culture 2 Results Blood Culture Result BUN C-REACTIVE PROTEIN Calcium Level CBC CBC w/ Differential CHLORIDE, URINE MMOL/L Comprehensive Metabolic Panel COVID-19 (2019 Novel Coronavirus) PCR Creatinine CREATININE, URINE MG/DL D Dimer Electrolytes Glucose Level GLUCOSE POC High??Sensitivity??Troponin T Hold Blue Top Tube HOLD LAVENDER TUBE HOLD URINE Lactate Level Legionella Ab Liver Function Panel Magnesium Level OSMOLALITY, URINE RANDOM Phosphorus Level PROBNP PROCALCITONIN, SERUM RESP PATH PANEL W/COVID-19 SEDIMENTATION RATE,AUTOMATED SODIUM, URINE MMOL/L Strep Pneumoniae Urinary Ag?-- Results Pending -- TSH WITH REFLEX TO FT4 Urine Chloride?-- Results Pending -- Urine Creatinine?-- Results Pending -- Urine Osmolality?-- Results Pending -- Urine Sodium?-- Results Pending -- VITAMIN B12 CT Chest W/O Contrast CT Head/Brain W/O Contrast XR Chest Portable You will be contacted within 72 hours with your results. Add On Lab Order?? Chloride Urine (Urine Chloride)?? Creatinine Urine (Urine Creatinine)?? Osmolality Urine (Urine Osmolality)?? Respiratory Pathogen PCR with COVID-19?? Sodium Urine (Urine Sodium)?? Strep Pneumoniae Urinary Ag?? Urinalysis w/hold for Urine Culture?? Primary Care Provider Not on Staff, PCP?? Advance Directive Health Care Proxy on File Yes - Health Care Proxy Discharge Vitals Temperature: 97.3 DegF Height: 165 cm Pulse Rate: 82 bpm Weight: 71.3 kg Respiratory Rate: 18 br/min Body Mass Index:??26.19 kg/m2??High Systolic Blood Pressure: 114 mm Hg Body surface area: 1.81 Diastolic Blood Pressure: 75 mm Hg ?? Oxygen Saturation: 98 % ?? Studies Pending All studies ordered during this hospital stay have been completed unless listed below. Please discuss all pending results with your provider listed above in these instructions. ?? Add On Lab Order?? Chloride Urine (Urine Chloride)?? Creatinine Urine (Urine Creatinine)?? Osmolality Urine (Urine Osmolality)?? Respiratory Pathogen PCR with COVID-19?? Sodium Urine (Urine Sodium)?? Strep Pneumoniae Urinary Ag?? Urinalysis w/hold for Urine Culture?? What to do next Instructions From Your Doctor ?? Orders??:Regular Diet :Ambulate with assistance ??3 times a day ??unless otherwise specified Status: ??Full Resuscitation? 03/31/24 15:01:00 EDT?? You Need to Schedule the Following Appointments Follow Up with??Not on Staff, PCP When:??Within 1 week: call to discuss follow up visit Discharge Medications DOMINGA MURRIETA :1965 Visit Date:03/27/2024 Medications: Please continue your medications until treatment is completed or stopped by your provider. Medications not listed below should be discontinued. Discuss any questions related to medications with your provider. What How Much When Instructions Next Dose New Cefpodoxime (cefpodoxime 200 mg oral tablet) 200 Milligram Oral Every 12 hours Duration: 1 Days 718 pm New Doxycycline (doxycycline hyclate 100 mg oral capsule) 100 Milligram Oral Twice a day Duration: 1 Days 718 pm New Midodrine (midodrine 5 mg oral tablet) 2.5 Milligram Oral 3 times a day 18 pm New Mupirocin Topical (mupirocin 2% topical ointment) 1 zach Topically 3 times a day Duration: 5 Days 718 pm New Nicotine (nicotine 21 mg/ 24 hr transdermal film, extended release) 1 patch(es) Topically Daily Duration: 30 Days Refills: 5 Apply to skin. Leave on for 24 hours. Use for at least 3 months before tapering down. ?? Pickup at [facility]/pharmacy #[id number] 7/19 am New Nicotine (nicotine 4 mg oral transmucosal lozenge) See instructions Refills: 5 Use 1 lozenge by mouth to replace times you regularly smoke and as needed for nicotine cravings. Place between gum and cheek until disolved, do not chew or swallow whole. May use up to 20 lozenge per day., As needed for as needed for smoking cessation ?? Pickup at [facility]/pharmacy #[id number] New Varenicline (varenicline 1mg tablet) 1 tab(s) Oral Twice a day Refills: 4 Take with food and with a full glass of water ?? Pickup at [facility]/pharmacy #[id number] 03/31 pm Changed Atorvastatin (atorvastatin 20 mg oral tablet) 1 tab(s) Oral Daily 04/01 am Changed BusPIRone (busPIRone 15 mg oral tablet) 1 tab(s) Oral 3 times a day 03/31 pm Changed Gabapentin (gabapentin 600 mg oral tablet) 1 tab(s) Oral 3 times a day 03/31 pm Changed Lidocaine/ Prilocaine Topical (lidocaine-prilocaine 2.5%-2.5% topical cream) 1 zach Topically Once apply to both feet prior to appointment ?? Changed Meclizine (meclizine 25 mg oral tablet) 1 tab(s) Oral 3 times a day as needed for for dizziness Changed Pantoprazole (pantoprazole 40 mg oral delayed release tablet) 2 tab(s) Oral Daily 04/01 Changed Sertraline (sertraline 100 mg oral tablet) 1.5 tab(s) Oral Daily 04/01 am Unchanged Acetaminophen (acetaminophen 500 mg oral tablet) 1 tab(s) Oral 4 times a day NEEDED FOR PAIN FOR 10 DAYS MAX 4 TABS PER DAY ?? Unchanged Albuterol (albuterol CFC free 90 mcg/ inh inhalation aerosol) 2 puff(s) Inhalation Every 4 hours as needed for Wheezing/Shortness of Breath Unchanged Amlodipine (amLODIPine 5 mg oral tablet) 5 Milligram Oral Daily Duration: 30 Days 04/01 am Unchanged ChlorproMAZINE (chlorproMAZINE 200 mg oral tablet) 1 tab(s) Oral Daily at Bedtime Duration: 30 Days 03/31 pm Unchanged Cholecalciferol (Vitamin D3 2000 intl units oral tablet) 1 tab(s) Oral Daily Duration: 30 Days 04/01 am Unchanged Cyanocobalamin (Vitamin B12 1000 mcg oral tablet) 1 tab(s) Oral Daily 04/01 am Unchanged Duloxetine (duloxetine 20 mg oral enteric coated capsule) 1 capsule Oral Twice a day 03/31 Unchanged HydrOXYzine (hydrOXYzine pamoate 100 mg oral capsule) 1 capsule Oral 3 times a day as needed for for anxiety Duration: 30 Days Unchanged Levothyroxine (levothyroxine 0.025 mg oral tablet) 1 tab(s) Oral Daily 04/01 am Unchanged Melatonin (melatonin 5 mg oral tablet) 1 tab(s) Oral Daily at Bedtime as needed for for insomnia Duration: 30 Days Unchanged Metoprolol (metoprolol 25 mg oral tablet, extended release) 25 Milligram Oral Daily Duration: 30 Days 04/01 am Unchanged Oxycodone (oxyCODONE 5 mg oral tablet) TAKE 1 TABLET BY MOUTH EVERY 8 HOURS NEEDED FOR PAIN FOR 7 DAYS ONLY FOR SEVERE PAIN ?? 03/31 pm Unchanged Tamsulosin (tamsulosin 0.4 mg oral capsule) 1 capsule Oral Daily 04/01 Unchanged Thiamine (Vitamin B1 100 mg oral tablet) 1 tab(s) Oral Daily Duration: 14 Days 04/01 am Unchanged Tiotropium (tiotropium 1.25 mcg/ inh inhalation aerosol) 2 puff(s) Inhalation Daily 04/01 Pharmacy Information [facility]/pharmacy #[id number]: [address], [place] [id number] [phone] ?? What How Much When Comments Stop Taking Clonidine (cloNIDine 0.2 mg oral tablet) 1 tab(s) Oral Twice a day Stop Taking Sulfamethoxazole/ Trimethoprim (sulfamethoxazole-trimethoprim 800 mg-160 mg oral tablet) 1 tab(s) Oral Every 12 hours FOR 10 DAYS ?? Stop Taking Triamcinolone Topical (triamcinolone 0.5% topical cream) APPLY TOPICALLY 2 TIMES A DAY ?? Prescription Given During Visit Cefpodoxime (cefpodoxime 200 mg oral tablet) - 200 mg, By Mouth, Every 12 hours, # 2 each, 0 Refills?? Doxycycline (doxycycline hyclate 100 mg oral capsule) - 100 mg, By Mouth, 2 times a day, # 2 each, 0 Refills?? Midodrine (midodrine 5 mg oral tablet) - 2.5 mg, By Mouth, 3 times a day, # 90 each, 0 Refills?? Mupirocin Topical (mupirocin 2% topical ointment) - , Topically, 3 times a day, # 15 Gm, 0 Refills?? Nicotine (nicotine 4 mg oral transmucosal lozenge) - , # 144 lozenge, 5 Refills, Use 1 lozenge by mouth to replace times you regularly smoke and as needed for nicotine cravings. Place between gum andcheek until disolved, do not chew or swallow whole.May use up to 20 lozenge per day., [facility]/pharmacy #[id number], [address] [place] [phone]?? Nicotine (nicotine 21 mg/24 hr transdermal film, extended release) - 1 patch, Topically, Daily, # 30 patch, 5 Refills, Apply to skin.Leave on for 24 hours.Use for at least 3 months before tapering down., [facility]/pharmacy #[id number], [address] [place] [address] [phone]?? Varenicline (varenicline 1mg tablet) - 1 tablet = 1 mg, By Mouth, 2 times a day, # 60 tablet, 4 Refills, Take with food and with a full glass of water, [facility]/pharmacy #[id number], [address] [place] [address] [phone]?? Laboratory Results Below is a partial list of the most recent Laboratory test results done prior to this discharge. You may have had other tests and procedures not included in this list. Please discuss all test resultswith your provider. Est Creatinine Clearance - 76.95 mL/min (03/31/2024) Basic Metabolic Panel (03/31/2024) ???Sodium - 136 mmol/L???Potassium - 4.0 mmol/L???Chloride - 98 mmol/L???Bicarbonate Level - 26 mmol/L???Anion Gap - 12???Glucose Level - 112 mg/dL???BUN - 14 mg/dL???Creatinine-Blood - 0.92 mg/dL???Estimated GFR Creatinine - 97 ML/MIN/1.73 M2???Calcium - 9.1 mg/dL Blood Culture (03/26/2024) ???Blood Culture Results - Preliminary report???Blood Culture Specimen Source - BLOOD Blood Culture #2 (03/26/2024) ???Blood Cult 2 Results - Preliminary report???Blood Culture 2 Specimen Source - BLOOD Blood Culture 2 Results (03/26/2024) ???Blood Culture 2 Isolate 1 - Comment Blood Culture Result (03/26/2024) ???Blood Culture Isolate 1 - Comment BUN (03/28/2024) ???BUN - 21 mg/dL C-REACTIVE PROTEIN (03/27/2024) ???C-Reactive Protein - 3.6 mg/dL Calcium Level (03/28/2024) ???Calcium - 8.6 mg/dL CBC (03/31/2024) ???WBC - 8.7 k/mm3???RBC - 4.42 m/mm3???Hgb - 11.5 Gm/dL???Hct - 34.2 %???MCV - 77.4 femtoliters???MCH - 26.0 pg???MCHC - 33.6 g/dL???Platelet Count - 291 k/mm3???RDW-SD - 38.5 femtoliters???MPV - 8.9 femtoliters???Nucleated RBC (Automated) - 0.0 #/100 WBC'S???Abs. NRBC - 0.0 k/mm3 CBC w/ Differential (03/28/2024) ???WBC - 10.0 k/mm3???RBC - 4.13 m/mm3???Hgb - 10.8 Gm/dL???Hct - 33.2 %???MCV - 80.4 femtoliters???MCH - 26.2 pg???MCHC - 32.5 g/dL???Platelet Count - 228 k/mm3???RDW-SD - 40.4 femtoliters???MPV - 9.1 femtoliters???Nucleated RBC (Automated) - 0.0 #/100 WBC'S???Abs. NRBC - 0.0 k/mm3???Abs. Neut - 8.1 k/mm3???Abs. Lymph - 1.1 k/mm3???Abs. [place] - 0.5 k/mm3???Abs. Eo - 0.2 k/mm3???Abs. Baso - 0.1 k/mm3???Neut % - 80.7 %???Lymph % - 10.8 %???[place] % - 5.3 %???Eos % - 2.3 %???Baso % - 0.5 %???Imm Gran - 0.4 %???Abs. Imm Gran - 0.0 k/mm3 CHLORIDE, URINE MMOL/L (03/27/2024) ???Chloride, Urine Random - 127 mmol/L Comprehensive Metabolic Panel (03/27/2024) ???Sodium - 140 mmol/L???Potassium - 3.9 mmol/L???Chloride - 106 mmol/L???Bicarbonate Level - 21 mmol/L???Anion Gap - 13???Glucose Level - 145 mg/dL???BUN - 26 mg/dL???Creatinine-Blood - 1.33 mg/dL???Estimated GFR Creatinine - 62 ML/MIN/1.73 M2???Calcium - 8.6 mg/dL???Protein, Total - 5.8 Gm/dL???Albumin - 3.7 Gm/dL???AG Ratio - 1.8???Alkaline Phosphatase - 161 units/L???AST (SGOT) - 25 units/L???ALT (SGPT) - 22 units/L???Bilirubin, Total - 0.3 mg/dL COVID-19 (2019 Novel Coronavirus) PCR (03/27/2024) ???COVID-19 PCR Specimen Source - NASAL???COVID-19 PCR Result - NEGATIVE Creatinine (03/28/2024) ???Creatinine-Blood - 1.03 mg/dL???Estimated GFR Creatinine - 85 ML/MIN/1.73 M2 CREATININE, URINE MG/DL (03/27/2024) ???Creatinine, Urine Random - 143.6 mg/dL D Dimer (03/28/2024) ???D-Dimer - 0.68 mg/L FEU Electrolytes (03/28/2024) ???Sodium - 139 mmol/L???Potassium - 4.4 mmol/L???Chloride - 105 mmol/L???Bicarbonate Level - 24 mmol/L???Anion Gap - 10 Glucose Level (03/28/2024) ???Glucose Level - 140 mg/dL GLUCOSE POC (03/30/2024) ???Glucose, POC - 142 mg/dL High??Sensitivity??Troponin T (03/27/2024) ???High Sensitivity Troponin (HSTnT) - 18 ng/L Hold Blue Top Tube (03/27/2024) ???Hold Blue Top - SPECIMEN DISCARDED AFTER 4 HOURS. HOLD LAVENDER TUBE (03/27/2024) ???Hold Lavender Top - SPECIMEN DISCARDED AFTER 24 HOURS. HOLD URINE (03/27/2024) ???Hold Urine - Testing Available 24 hours from Time of Collection Lactate Level (03/26/2024) ???Lactate - 0.7 mmol/L Legionella Ab (03/27/2024) ???Legionella pneumophila Ab - Non Reactive Liver Function Panel (03/31/2024) ???Protein, Total - 5.9 Gm/dL???Albumin - 3.6 Gm/dL???Alkaline Phosphatase - 241 units/L???AST (SGOT) - 27 units/L???ALT (SGPT) - 39 units/L???Bilirubin, Total - 0.6 mg/dL???Bilirubin, Direct - 0.3 mg/dL???Bilirubin, Indirect - 0.3 mg/dL Magnesium Level (03/31/2024) ???Magnesium - 1.6 mg/dL OSMOLALITY, URINE RANDOM (03/27/2024) ???Osmolality, Urine Random - 748 mOsm/kg Phosphorus Level (03/31/2024) ???Phosphorus - 3.4 mg/dL PROBNP (03/26/2024) ???Nt-Probnp - 58 pg/mL PROCALCITONIN, SERUM (03/26/2024) ???Procalcitonin - 0.06 ng/mL RESP PATH PANEL W/COVID-19 (03/27/2024) ???Adenovirus by PCR - NEGATIVE???Coronavirus 229E by PCR (not COVID-19) - NEGATIVE???Coronavirus HKU1 by PCR (not COVID-19) - NEGATIVE???Coronavirus NL63 by PCR (not COVID-19) - NEGATIVE???Coronavirus OC43 by PCR (not COVID-19) - NEGATIVE???Human Metapneumovirus by PCR - NEGATIVE???Rhinovirus/Enterovirus by PCR - NEGATIVE???Influenza A by PCR - NEGATIVE???Influenza B by PCR - NEGATIVE???Parainfluenza 1 by PCR - NEGATIVE???Parainfluenza 2 by PCR - NEGATIVE???Parainfluenza 3 by PCR - NEGATIVE???Parainfluenza 4 by PCR - NEGATIVE???RSV by PCR - NEGATIVE???Bordetella Pertussis by PCR - NEGATIVE??? Chlamydophila Pneumoniae by PCR - NEGATIVE???Mycoplasma Pneumoniae by PCR - NEGATIVE???COVID-19 (SARS-CoV-2) by PCR - NEGATIVE???Bordetella Parapertussis by PCR - NEGATIVE SEDIMENTATION RATE,AUTOMATED (03/27/2024) ???Sed Rate - 40 mm/hr SODIUM, URINE MMOL/L (03/27/2024) ???Sodium, Urine Random - 164 mmol/L TSH WITH REFLEX TO FT4 (03/26/2024) ???TSH - 2.33 uIU/mL VITAMIN B12 (03/26/2024) ???Vitamin B12 Level - 1838 pg/mL Allergies (NKA means No Known Allergies) aspirin penicillins??(hives) traMADol??(racing thoughts) Problems Active Problems??(27) [...] Belongings I fully understand and agree that [facility] accepts no responsibility for all my personal [...] to send valuables and belongings home. ?? Review of Valuable and Belonging List: With patient Date for Pt to Sign Valuables/Belongings: 03/27/24 06:53:00 ?? Other Discharge Information ? Case Management Discharge Plan?? Discharge Plan?? Discharge Agency Information?? Discharge Level of Care at Discharge: [facility] facility Name of Agency #1: [facility] Discharge Rx Program: Discharge Prescription Program Service Categories #1: Physical Therapy, [facility] Discharge Nursing Homes/Rehab Facilities: [facility] ? Pulmonary Rehab Status?? Pulmonary Rehab Discharge [...] are strongly encouraged to quit. Please call [employer] at [phone] or [phone] ([phone]) or log in to [email or web address] for referrals to smoking cessation programs. ?? 326 Suicide & Crisis Lifeline is available 06/04 if you or someone you know needs to find a reason to keep living. By calling 940 you'll be connected to a skilled, trained counselor at a crisis center in your area. INPATIENT DISCHARGE INSTRUCTIONS SIGNATURE PAGE DOMINGA MURRIETA Location:[facility] Registration Date and Time:03/27/2024 00:59 EDT Primary Care Physician: Not on Staff, PCP Attending Physician: Margot EKY, July Pollard, I DOMINGA MURRIETA, have received the above patient education materials/instructions and have verbalized understanding. If ambulance or transport services are being used I further acknowledge being given a choice of service. ?? If you need to contact me, please call me at this number: . Patient/Spanish Interpreter/Translator Name: Patient/Spanish Interpreter/Translator Signature: Relationship to Patient: Witness Name/Signature: Date: Patient Care team information Care Team Personnel Name: Zaida Hall RN Position: [facility] RN Member Role: Primary Care Nurse Name: Yuly Vásquez RN Position: [facility] RN Member Role: Primary Care Nurse Name: Robson Feldman RN Position: [facility] RN Member Role: Primary Care Nurse Name: Liza Chua RN Position: [facility] RN Member Role: Primary Care Nurse Name: Alyson Cage NP Position: [facility] PCO Associate Professional Member Role: Primary Care Nurse Address: Address: [address] [place] [id number] Name: Elena Dominguez RN Position: [facility] RN Member Role: Primary Care Nurse Name: Gulshan Moulton RN Position: [facility] RN Member Role: Primary Care Nurse Name: Farnaz Adames Position: [facility] AMB Nurse Member Role: Lifetime Consulting Physician Name: Kristofer Segundo RN Position: [facility] RN Member Role: Primary Care Nurse Name: Not on Staff, PCP Position: [facility] Physician (General Medicine) Member Role: PCP Name: Sarah Jackson RN Position: [facility] RN Member Role: Primary Care Nurse Name: Luke Cheatham LPN Position: [facility] RN Member Role: Primary Care Nurse Name: Norman Richards RN Position: [facility] RN Member Role: Primary Care Nurse Name: Rita Edmonds RN Position: [facility] AMB Nurse Member Role: Primary Care Nurse Name: Sumit Salas RN Position: [facility] RN Member Role: Primary Care Nurse Care Team Related Persons Name: TANIA COYNE Address: [place] [address] Name: ROMERO SOLER Address: [address] [address]
== END 2024-05-25 13:43 | disposition home or self-care (01) ==
PROVIDERS: PCP Internal Medicine; Visit Provider Internal Medicine
DX: R42 Dizziness and giddiness (principal); R07.81 Pleurodynia; G62.9 Polyneuropathy, unspecified; F10.10 Alcohol abuse, uncomplicated; F41.9 Anxiety disorder, unspecified; F17.200 Nicotine dependence, unspecified, uncomplicated
CPT/HCPCS: 99214

== ENCOUNTER 2024-06-24 12:54 | Outpatient (AMB) | payer MEDICARE, MEDICAID, SELFPAY ==
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
== END 2024-06-24 15:04 | disposition home or self-care (01) ==
LOC: HO.HOP 12:54
PROVIDERS: PCP Internal Medicine; Visit Provider Clinical Nurse Specialist Psychiatric/Mental Health
DX: F25.9 Schizoaffective disorder, unspecified (principal); F10.21 Alcohol dependence, in remission
CPT/HCPCS: 90792

== ENCOUNTER → 2024-06-24 12:54 | Outpatient (BNVA) | payer MEDICARE, MEDICAID, SELFPAY | PROVIDERS: PCP Internal Medicine; Visit Provider Clinical Nurse Specialist Psychiatric/Mental Health | DX: F25.9 Schizoaffective disorder, unspecified (principal); F10.21 Alcohol dependence, in remission | CPT/HCPCS: 90792 ==

== ENCOUNTER 2024-11-17 10:30 | Outpatient (AMB) | payer MEDICARE, MEDICAID, SELFPAY ==
[2024-11-17 10:41] VITALS: BP 126/86; PULSE 100; O2SAT 92; BMI 23.4
--- NOTE | 2024-11-17 10:41 | A.OFFPC_ITS ---
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: No Accompanied by: Self / Same As Patient Allergies aspirin [ASA] Allergy (Unknown, Verified 11/17/24 12:37) FACIAL SWELLING Penicillins [PENICILLINS] Allergy (Unknown, Verified 11/17/24 12:37) HIVES trazodone Allergy (Verified 11/17/24 12:37) Anaphylaxis tramadol [TRAMADOL] Adverse Reaction (Unknown, Verified 11/17/24 12:37) NAUSEA & VOMITING Medication List - Last Reconciled 11/17/24 by GOGO Valente albuterol sulfate 90 mcg/actuation 2 puffs inhalation Q6H PRN apixaban (Eliquis) 5 mg PO BID atorvastatin 20 mg PO BEDTIME blood pressure monitor As directed bupropion HCl 75 mg PO BID buspirone 15 mg PO TID chlorpromazine 200 mg PO QPM cyanocobalamin (vitamin B-12) 1,000 mcg PO DAILY 90 days duloxetine 30 mg PO BID gabapentin 800 mg PO TID hydroxyzine pamoate 100 mg PO Q8H PRN 30 days levothyroxine 25 mcg PO DAILY lidocaine-prilocaine 2.5-2.5 % 1 appl topical ONCE melatonin 5 mg PO BEDTIME 30 days midodrine 2.5 mg PO TID midodrine 5 mg PO TID 30 days pantoprazole 40 mg PO DAILY sertraline 150 mg (3 x 50 mg) PO DAILY 30 days tamsulosin 0.4 mg PO BEDTIME 90 days thiamine HCl (vitamin B1) 100 mg PO DAILY 30 days triamcinolone acetonide 0.5% 1 appl topical BID varenicline tartrate mg PO Tobacco use date assessed: 11/17/24 Dental Screening Dental Screen Date: 11/17/24 Did you have a dental visit in the last 12 months?: Yes Did you have a dental problem in the last 6 months where you did not have access to dental care?: No HPI [facility] HPI Details Patient is a 59-year-old male presenting follow up assessment post short-term rehab The patient of Dr. 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 Jul 30 to november 14/2025. Reports that he has a broken back and broken rib, a month after surgery he fell into his dresser and broke 4 ribs on the right side. Reports that he has not followed up with the surgeon as yet. Reports that the rehab was not able to provide him with a ride to his appointment. The patient is currently at [facility] The patient is here to get is meds reconcile and send to new pharmacy. The [facility] had the patient oxycodone weaned down to 5 mg daily. The patient reports that they were weaning his medication until he finds a new doctor. Reports that he need us to order his oxycodone. Spoke with [facility] nursing staff to find out about the Situation at the Rehab. Staff reports that they are not sure if the patient insurance is going to be accepted by the Doctor. The patient is noted to be on Eliquis 5 mg BID for right leg DVT, per patient and Ibuprofen 800mg Q 8H prn, discussed with patient that he cannot be on the Ibuprofen because this will increase his chance of bleeding and the patient reports that he is not going to stop taking the medication and will buy his own OTC. The patient also wants his oxycodone to be increased to 10 mg four times a day. Discussed with the patient that this medication has been reduced to 5 mg daily. The patient is currently on duloxetine 30 mg BID, gabapentin 800 mg TID. Informed the patient that I will give him oxycodone 5 mg BID x [address] Archer will decide if it should be increase when he returns. The patient declines and said that I should not prescribe anything and he is sick of this clinic. Reports that we had messed up his records already, so I should add that he is still going to take the ibuprofen and he grabbed the paperwork and left. The nurse from [facility] reports that she gave the patient the notes from [facility] to give to us, so we could see what has been happening, but the patient did not provide this information and only presented the medication list. [facility] Medical History (Updated 11/17/24 @ 13:36 by GOGO Valente) Flail chest Benzodiazepine withdrawal Neuropathy Foot pain, bilateral Smoker Mixed hyperlipidemia Acquired hypothyroidism Essential hypertension Alcohol use disorder, severe, dependence Polysubstance use disorder Schizoaffective disorder Opiate dependence Colitis Chronic diarrhea Heavy tobacco smoker GERD (gastroesophageal reflux disease) History of colitis Surgical History History of back surgery Family History Mother Alzheimer disease Multiple sclerosis Other Mental health disorder Social History Household Members: None Housing: Other Housing Other:: hotel Do you presently have visiting nurse or other home services: No Alcohol intake: former Comment: 1:1 sitter Patient Tobacco Use Status: Current everyday Tobacco user Tobacco use type: Cigarette Cigarette Packs Per Day: 0.5 Cigarettes Per Day: 20.0 Years Smoked: 30 Packs Per Year: 15 Packs per year/per ci.00 e-Cigarette/Vaping Use: Never Used Second Hand Smoke Exposure: Yes Substance Use Type: Marijuana service: No Current occupational status: disabled Sexual orientation: Straight/Heterosexual Cognitive needs: No Hearing needs: No Vision needs: Yes Questionnaire PHQ-9 Over the last 2 weeks, how often have you been bothered by any of the following problems? 1. Little interest or pleasure in doing things: not at all 2. Feeling down, depressed, or hopeless: not at all 3. Trouble falling or staying asleep, or sleeping too much: not at all 4. Feeling tired or having little energy: not at all 5. Poor appetite or overeating: not at all 6. Feeling bad about yourself - or that you are a failure or have let yourself or your family down: not at all 7. Trouble concentrating on things, such as reading the newspaper or watching television: not at all 8. Moving or speaking so slowly that other people could have noticed. Or the opposite - being so fidgety or restless that you have been moving around a lot more than usual: not at all 9. Thoughts that you would be better off or of hurting yourself in some way: not at all Total score: 0 Depression Screening Interpretation: Negative Depression Screening Done: Yes 90157 - PHQ-9 Billing: Yes Source: Developed by Drs. Joe Wright, Vandana Etienne, Chemo Brar and colleagues, with an educational frankie from [employer]. Thrive Questionnaire Date Thrive assessed: 05/25/24 ROSANNA-7 AMB Questionnaire ROSANNA-7 Date ROSANNA - 7 assessed: 11/17/24 Feeling nervous, anxious, or on edge: 3 = Nearly every day Not being able to stop or control worryin = Nearly every day Worrying too much about different things: 2 = More than half the days Trouble relaxin = Nearly every day Being so restless that it is hard to sit still: 2 = More than half the days Becoming easily annoyed or irritable: 1 = Several days Feeling afraid as if something awful might happen: 0 = Not at all Total ROSANNA-7 score (0-4 normal; 5-9 mild; 10-14 moderate; 15-21 severe): 14 Source: Developed by Drs. Joe Wright, Vandana Etienne, Chemo Brar and colleagues, with an educational frankie from [employer]. ROSANNA-7 Assessment Billing ROSANNA-7 Assessment Tool: ROSANNA-7 Assessment 37595 Review of Systems Const Details: Denies chills, Denies fatigue, Denies fever(s), Denies headache(s) and Denies weakness HEENT Denies change in vision, Denies dizziness, Denies headache(s), Denies hearing loss, Denies nasal congestion, Denies sinus pain, Denies sinus pressure and Denies sore throat Card Denies chest pain, Denies lightheadedness, Denies dyspnea and Denies other (palpitations) Resp Denies cough, Denies dyspnea and Denies wheezing GI Denies abdominal pain, Denies melena, Denies hematochezia, Denies change in bowel habits, Denies dyspepsia and Denies nausea Denies hematuria and Denies dysuria Musc Denies abnormal gait, reports right rib and back pain, Denies numbness and Denies tingling Skin/Breast Denies rash, Denies unusual bruising and Denies wounds Neuro Denies abnormal gait, Denies dizziness, Denies headache(s), Denies memory loss, Denies numbness, Denies Sensory deficit (Neuro), Denies tingling and Denies weakness Psych reports anxiety, reports depression and Denies memory loss Endo Denies cold intolerance, Denies fatigue, Denies heat intolerance, Denies polydipsia and Denies polyuria Austin/Lymph Denies easy bleeding and Denies easy bruising Aller/Immun Denies wheezing Physical exam (Primary Care) Vital Signs: Last Vital Signs Pulse 100 11/17/24 10:41 BP 126/86 11/17/24 10:41 Pulse Ox 92 11/17/24 10:41 Oxygen Delivery Method Room Air 11/17/24 10:41 BMI result Body Mass Index 23.4 Tobacco/Smoking Status: Tobacco use Status Tobacco use date assessed 11/17/24 11/17/24 10:52 Patient Tobacco Use Status Current everyday Tobacco 11/17/24 10:52 Tobacco use type Cigarette 11/17/24 10:52 e-Cigarette/Vaping Use Never Used 11/17/24 10:52 PHQ-9: PHQ-9 Score PHQ-9: Total score 0 11/17/24 12:40 Depression Screening Interpretation: Negative Thrive Assessment: Date of Thrive Assessment Date Thrive assessed 05/25/24 11/17/24 10:52 Const Other: The patient refused evaluation due to medication disagreement. Coding Level of Care Code Est Pt Level 4 (33307) Diagnoses Closed fracture of multiple ribs of right side with routine healing, subsequent encounter S22.41XD Encounter type: subsequent encounter Fracture healing: with routine healing Fracture type: closed Laterality: right Deep vein thrombosis (DVT) of distal vein of right lower extremity, unspecified chronicity I82.4Z1 Affected thrombotic vein of extremity: unspecified lower extremity distal vein Chronicity: unspecified Neuropathy G62.9 Back pain, unspecified back location, unspecified back pain laterality, unspecified chronicity M54.9 Back pain laterality: unspecified Back pain location: back pain in unspecified location Chronicity: unspecified Closed fracture of multiple ribs with flail chest with routine healing, subsequent encounter S22.5XXD Encounter type: subsequent encounter Fracture healing: with routine healing Fracture type: closed Additional Codes ROSANNA-7 Assessment Billing - ROSANNA-7 Assessment Tool: RSOANNA-7 Assessment 30218 ([id number]) PHQ-9 - 54398 - PHQ-9 Billing: Yes ([id number]) Time Spent (min) 42 Assessment & Plan Assessment & Plan (1) Rib fractures: Code(s): S22.49XA - Multiple fractures of ribs, unspecified side, initial encounter for c losed fracture Category: Medical Qualifiers: Encounter type: subsequent encounter Fracture healing: with routine healing Fracture type: closed Laterality: right Qualified Code(s): S22.41XD - Multiple fractures of ribs, right side, subsequent encounter for fracture with routine healing Plan: Patient reports falling into his dresser and broke his ribs on the right side. Reports that he is in a lot of pain. The patient is currently on duloxetine 30 mg, gabapentin 800 mg t.i.d. and oxycodone 5 mg daily. The patient is only going to have 5 more days of oxycodone. The patient wants the oxycodone to be increased to 10 mg and to be given 4 times a day. Discussed with the patient that his medication was already weaned down to once a day. Offered the patient oxycodone 5 mg b.i.d. and he declined, took his paperwork in left (2) Right leg DVT: Code(s): I82.401 - Acute embolism and thrombosis of unspecified deep veins of right lower extremity Category: Medical Qualifiers: Affected thrombotic vein of extremity: unspecified lower extremity distal vein Chronicity: unspecified Qualified Code(s): I82.4Z1 - Acute embolism and thrombosis of unspecified deep veins of right distal lower extremity Plan: The patient is currently on Eliquis 5 mg b.i.d.. Reports that he had a DVT in the right leg. The patient was also noted taking ibuprofen 800 mg q.8 hours. Discussed with the patient that he cannot take ibuprofen while he is on Eliquis because this will increase his chance of having a bleed. The patient reports that he is still going to take his ibuprofen and we will get it [id number] if not prescribed. (3) Neuropathy: Code(s): G62.9 - Polyneuropathy, unspecified Category: Medical Plan: Continue gabapentin 800 mg t.i.d. (4) Back pain: Code(s): M54.9 - Dorsalgia, unspecified Category: Medical Qualifiers: Back pain laterality: unspecified Back pain location: back pain in unspecified location Chronicity: unspecified Qualified Code(s): M54.9 - Dorsalgia, unspecified Plan: Patient reports that he has a broken back. We will tried to obtain more records from [facility] to confirm this. Reports that he is in a lot of pain. The rosario pereira has been in rehab for a three-month, where, his oxycodone was decreased to 5 mg daily. Patient reports that he would like his oxycodone to be increase to 10 mg 4 times a day. Discussed with the patient that he would have to wait until Dr. Archer's return to make such change. Offered the patient oxycodone 5 mg b.i.d. and the patient declined, took his paperwork and left. (5) Flail chest: Code(s): S22.5XXA - Flail chest, initial encounter for closed fracture Category: Medical Qualifiers: Encounter type: subsequent encounter Fracture healing: with routine healing Fracture type: closed Qualified Code(s): S22.5XXD - Flail chest, subsequent encounter for fracture with routine healing Plan: Patient has a history of flail chest status post hardware removal on (07/25, [place]), patient went to [facility] ED on 07/30/2024 with complaints of generalized weakness and multiple falls. In the ED the patient to systolic was 98, the patient had an electrocardiogram on 07/29/2024 that showed sinus rhythm. CT of the chest that showed chronic findings, CT also showed possible cholecystitis and was given ceftriaxone and Flagyl. Right upper quadrant ultrasound without any evidence of cholecystitis. Per ER reports, patient was being admitted for frequent falls. Plan The patient prescriptions were sent to [place] pharmacy, excluding is oxycodone because he decline the Oxycodone 5 mg BID. Medications: New apixaban (Eliquis) 5 mg PO BID 120 tabs 3RF pantoprazole 40 mg PO DAILY 60 tabs 3RF apixaban (Eliquis) 5 mg PO BID 120 tabs 3RF levothyroxine 25 mcg PO DAILY 30 tabs 3RF pantoprazole 40 mg PO DAILY 60 tabs 3RF Changed From thiamine HCl (vitamin B1) 100 mg PO DAILY To thiamine HCl (vitamin B1) 100 mg PO DAILY 30 tabs 2RF 30 days From sertraline 150 mg PO DAILY To sertraline 150 mg (3 x 50 mg) PO DAILY 90 tabs 3RF 30 days Refilled atorvastatin 20 mg PO BEDTIME 90 tabs 1RF atorvastatin 20 mg PO BEDTIME 90 tabs 1RF bupropion HCl 75 mg PO BID 28 tabs 1RF buspirone 15 mg PO TID 90 tabs 1RF chlorpromazine 200 mg PO QPM 30 tabs 1RF cyanocobalamin (vitamin B-12) 1,000 mcg PO DAILY 90 tabs 1RF 90 days duloxetine 30 mg PO BID 60 caps 0RF hydroxyzine pamoate 100 mg PO Q8H PRN 90 caps 0RF anxiety 30 days tamsulosin 0.4 mg PO BEDTIME 90 caps 1RF 90 days N40.1 - Benign prostatic hyperplasia with lower urinary tract symptoms, R35.1 - Nocturia triamcinolone acetonide 0.5% 1 appl topical BID 15 grams 3RF gabapentin 800 mg PO TID 90 tabs 0RF lidocaine-prilocaine 2.5-2.5 % cleanse feet thoroughly, apply to both feet 30 minutes prior to appointment. 1 appl topical ONCE 30 grams 0RF preprocedure melatonin 5 mg PO BEDTIME 30 caps 1RF 30 days midodrine do not give last dose of day after 6PM or within 4 hrs of bedtime 5 mg PO TID 90 tabs 2RF 30 days Discontinued ibuprofen Take with food and only as needed Discontinued Reason: Doctor's Order 800 mg PO TID PRN 90 tabs 1RF pain pantoprazole Discontinued Reason: Patient Refused 80 mg (2 x 40 mg) PO DAILY 60 tabs 1RF
--- OUTSIDE RECORDS SUMMARY | 2024-11-17 12:35 | XMS_ITS | Continuity of Care Document ---
Author Organization [facility] [place] [address] Care Team Providers Care Claims Service Adjustor Name Role Phone [facility] OTHER Assessment No assessment recorded. Plan of Treatment Reminders Order Date Submit Date Provider Last Modified By Organization Details Last Modified Time Details Appointments None record ed. Lab None record ed. Referral None record ed. Procedures None record ed. Surgeries None record ed. Imaging None record ed. Medication Orders None record ed. Patient TargetsNo targets recorded. Patient InstructionsNo instructions recorded. Reason for Referral None Reported. Problems Name Problem SNOMED Code Status Onset Date Resolution Date Notes Provider Name and Address Organization Details Recorded Time Anxiety 03464122 Active 2024 AIDAN CISNEROS [address] [place] [address], [address], [place], [address] , [facility] 5 14:03:03 Asthma 645618755 Active 2024 AIDAN CISNEROS [address] [place] [address], [address], [place], [address] , [facility] 5 14:03:08 Hypertens koby disorder 87351816 Active 2024 [address] S[address]VA [address], [address], [place], [address] , [facility] 5 14:03:13 Hypothyro idism 92645641 Active [address], [address], [place], [address] , [facility] 5 14:03:20 Depressiv e disorder 70091697 Active 2024 EULALIA SILVA [facility] [address] [facility], [address], [place], [address] , [facility] 5 14:03:29 History of substance abuse 128776339 Active 2024 AIDAN CISNEROS [address] [place] [address], [address], [place], [address] , [facility] 5 14:04:01 Tobacco user 044819912 Active 2024 AIDAN CISNEROS [address] [place] [address], [address], [place], [address] , [facility] 5 14:04:19 Alcoholic polyneuro zina 4885208 Active 2024 AIDAN CISNEROS [address] [place] [address], [address], [place], [address] , [facility] 5 14:04:30 Chronic deep venous thrombosi s of lower extremity 92259838470 9106 Active 2024 AIDAN CISNEROS [address] [place] [address], [address], [place], [address] , [facility] 5 14:07:59 Interstit ial lung disease 809189019 Active 2024 AIDAN CISNEROS [address] [place] [address], [address], [place], [address] , [facility] 5 14:08:07 Acute respirato ry failure 75898725 Active 2024 AIDAN CISNEROS [address] [place] [address], [address], [place], [address] , [facility] 5 14:08:38 Chronic pain 74248632 Active 2024 AIDAN CISNEROS [address] [place] [address], [address], [place], [address] , [facility] 5 14:10:47 Benign prostatic hyperplas ia 586494387 Active 2024 AIDAN CISNEROS [address] [facility], [address], [place], [address] , [facility] 5 14:14:58 Gastroeso phageal reflux disease 469143356 Active 2024 AIDAN CISNEROS [address] , [address], [place], [address] , [facility] 5 14:16:14 Hyperlipi demia 02434404 Active 2024 AIDAN CISNEROS [address] , [address], [place], [address] , [facility] 5 14:16:51 Low blood pressure 01807023 Active 2024 AIDAN CISNEROS [address] , [address], [place], [address] , [facility] 5 14:19:37 Orthostat ic hypotensi on 98034159 Active 2023 Not Available [facility] 5 09:26:38 Oral phase dysphagia 739442029 Active 2023 Not Available [facility] 5 09:26:38 Gastroeso phageal reflux disease without esophagit is 794322043 Active 2023 Not Available [facility] 5 09:26:38 Falls 072411900 Active 2023 Not Available [facility] 5 09:26:39 Delirium 8433628 Active 2023 Not Available [facility] 5 09:26:39 Imaging of abdomen Active 2023 Not Available [facility] 5 09:26:39 Dysthymia 38700792 Active 2023 Not Available [facility] 5 09:26:40 Generaliz ed anxiety disorder 78131281 Active 2023 Not Available [facility] 5 09:26:40 Uncomplic ated mild persisten t asthma 000741894 Active 2023 Not Available [facility] 5 09:26:41 Nicotine dependenc e 56535613 Active 2023 Not Available [facility] 5 09:26:41 Blood chemistry Active 2023 Not Available [facility] 5 09:26:42 Embolism from thrombosi s of vein of lower extremity 964904319 Active 2023 Not Available [facility] 5 09:26:43 Traumatic injury 329359928 Active 2023 right rib fracture sp hardware Not Available [facility] 5 09:26:43 Muscle weakness 35404406 Active 2023 Not Available [facility] 5 09:26:43 Difficult y walking 806709877 Active 2023 Not Available [facility] 5 09:26:44 Unsteady when standing 784238748 Active 2023 Not Available [facility] 5 09:26:44 Nausea and vomiting 39455715 Active 2023 Not Available [facility] 5 09:26:45 Anorexia nervosa 79607224 Active 2023 Not Available [facility] 5 09:26:46 Constipat ion 17490125 Active 2023 Not Available [facility] 5 09:26:46 Anxiety disorder 585891641 Active 2023 Not Available [facility] 5 09:26:48 Acute hypoxemic respirato ry failure 712674210 Active 2023 Not Available [facility] 5 09:26:48 Problem Notes None recorded. Medical Equipment None Reported. Allergies Allergen ID Allergen Name Allergen Category Reaction Reaction Severity Criticality Documentation Date Start Date Code Code System Note Provider Name and Address Organization Details Recorded Time 43067 Product containin g penicilli n (product) medicatio n Not available Not available Not available 09/22/2024 28839 8001 SNOMED Not Available Not Available Not Available 06735 tramadol medicatio n Not available Not available Not available 09/22/20242023 01838 RxNorm Not Available Not Available Not Available 89621 aspirin medicatio n Not available Not available Not available 09/22/20242023 1191 RxNorm face swell ing Not Available Not Available Not Available Medications Name Sig Start Date Stop Date Status Note LastModified by Organization Details LastModified Time Miralax 17 gram/dose oral powder Give 17 gram by mouth every 24 hours as needed for Constipat ion 2024 active Not Available Not Available Not Avai lable acetaminoph en 325 mg tablet Give 975 mg by mouth three times a day for Pain 2023 active Not Available Not Available Not Avai lable gabapentin 600 mg tablet Give 1 tablet by mouth three times a day for Pain 2023 active Not Available Not Available Not Avai lable atorvastati n 20 mg tablet Give 1 tablet by mouth one time a day for hyperlipi demia 2024 active Not Available Not Available Not Avai lable ipratropium 0.5 mg-albutero l 3 mg (2.5 mg base)/3 mL nebulizatio n soln 1 applicati on inhale orally four times a day 2023 active Not Available Not Available Not Avai lable Nicoderm 21 mg/24 hr daily transdermal patch Apply 1 patch transderm ally one time a day and remove per schedule 2023 active Not Available Not Available Not Avai lable sertraline 100 mg tablet Give 1.5 tablet by mouth one time a day 2023 active Not Available Not Available Not Avai lable hydroxyzine HCl 50 mg tablet Give 1 tablet by mouth every 12 hours as needed for Itching itching second to eczema 2024 active Not Available Not Available Not Avai lable IBU 600 mg tablet Give 1 tablet by mouth every 8 hours as needed for Pain 2024 active Not Available Not Available Not Avai lable tamsulosin 0.4 mg capsule Give 1 capsule by mouth in the evening for urinary retention 2024 active Not Available Not Available Not Avai lable gabapentin 800 mg tablet Give 1 tablet by mouth three times a day 2024 active Not Available Not Available Not Avai lable ProAmatine 5 mg tablet Give 5 mg by mouth three times a day hold for SBP >140 2023 active Not Available Not Available Not Avai lable pantoprazol e 40 mg tablet,clarisa yed release Give 40 mg by mouth two times a day for GERD 2024 active Not Available Not Available Not Avai lable DSS 100 mg capsule Give 1 tablet by mouth every 12 hours as needed for Constipat ion 2023 active Not Available Not Available Not Avai lable chlorpromaz ine 200 mg tablet Give 1 tablet by mouth in the evening for Anxiety 2024 active Not Available Not Available Not Avai lable Laxative (sennosides ) 8.6 mg tablet Give 1 tablet by mouth every 12 hours as needed for Constipat ion 2023 active Not Available Not Available Not Avai lable L-Thyroxine Sodium 25 mcg tablet Give 1 tablet by mouth in the morning for THYROID 2023 active Not Available Not Available Not Avai lable Vitamin B-12 1,000 mcg tablet Give 1 tablet by mouth one time a day 2023 active Not Available Not Available Not Avai lable buspirone 15 mg tablet Give 1 tablet by mouth three times a day 2023 active Not Available Not Available Not Avai lable oxycodone 5 mg tablet Give 1 tablet by mouth one time a day for Pain for 5 Days 11/23 completed Not Available Not Available Not Available duloxetine 20 mg capsule,del ayed release Give 1 capsule by mouth two times a day May cause drowsines s, avoid alcohol, do not crush/ronaldo w, swallow whole 2023 active Not Available Not Available Not Avai lable oxycodone 10 mg tablet Give 1 tablet by mouth every 6 hours as needed for Pain until 5 23:59 AND Give 1 tablet by mouth every 6 hours as needed for Pain until 5 23:59 11/04 completed Not Available Not Available Not Available thiamine mononitrate (vitamin B1) 100 mg tablet Give 1 tablet by mouth one time a day for supplemen t 2023 active Not Available Not Available Not Avai lable sodium phosphates 19 gram-7 gram/197 mL enema Insert 1 unit rectally every 24 hours as needed for Constipat ion Use only if Bisacodyl Supposito ry is ineffecti ve 2023 active Not Available Not Available Not Avai lable Chantix Continuing Month Box 1 mg tablet Give 1 tablet by mouth two times a day with food and full glass of water 2023 active Not Available Not Available Not Avai lable lactulose 10 gram/15 mL (15 mL) oral solution Give 30 ml by mouth every 24 hours as needed for Constipat ion 2023 active Not Available Not Available Not Avai lable VertiCalm 25 mg tablet Give 1 tablet by mouth every 8 hours as needed for dizziness 2023 active Not Available Not Available Not Avai lable apixaban 5 mg tablet Give 2 tablet by mouth two times a day for DVT for 5 Administr ations AND Give 1 tablet by mouth two times a day for DVT 2023 active Not Available Not Available Not Avai lable Leva Set 2.5 %-2.5 % topical kit Apply to both feet topically one time a day 2023 active Not Available Not Available Not Avai lable Powderlax 17 gram oral powder packet Give 17 gram by mouth one time a day for Osmotic laxative Dilute in 6-8 ounces of fluid 2023 active Not Available Not Available Not Avai lable Monistat Care (hydrocorti sone) 1 % topical cream Apply to affected area topically every 12 hours as needed for Itching until 23:59 11/16 completed Not Available Not Available Not Available Vitals None Recorded Social History Question Answer Notes LastModified by Organizat ion Details LastModified Time Tobacco Smoking Status Former Smoker AIDAN CISNEROS [address], [address], [place], [address], [facility] 09/22/2024 14:31:13 What Is Your Level Of Alcohol Consumption? None Information not available 09/22/2024 What Is Your Level Of Caffeine Consumption? None Information not available 09/22/2024 Do You Use Any Illicit Or Recreational Drugs? No History Substance Abuse. Information not available 09/22/2024 Has Tobacco Cessation Counseling Been Provided? No Information not available 09/22/2024 How Many Years Have You Smoked Tobacco? 41 Information not available 09/22/2024 Do You Or Have You Ever Used Any Other Forms Of Tobacco Or Nicotine? Yes Information not available 09/22/2024 Sex: Unknown Functional Status None recorded. Mental Status None recorded. Family History Nothing Reported. Medical History No medical history recorded. Past Encounters Encounter ID Performer Location Encounter Start Date Encounter Closed Date Diagnosis/Indication Diagnosis SNOMED-CT Code Diagnosis ICD10 Code Diagnosis Note [id number] AIDAN CISNEROS [facility] [address] [place] [address] 11/01/2024 11:02:27 11/16/2024 08:47:50 Chronic pain 79584419 G89.29 states that he was prescribed oxycodone in july for back painNotes reviewed he was rx pain med for fracture ribs.he is on scheduled tylenol TID and will add prn ibuprofen 600mg q 8 prn per pt requestoxy codone to be titrated to to QD, he is upset about this, he tells me he is not addicted to oxy although this was not insinuated , I explained to him that there are other ways to deal with chronic pain he is not receptive to learning. Eczema 36751332 L30.9 facial - there currently is no rash notedeucer in recommende d, per patient it does not helpwill order hydorcorti sone 0.5 % bid for 14 days and re-eval Anxiety 76407717 F41.9 on chlorproma zine dailyadded hydroxyzin e 50 mg prn q12 ( he states that he used to take 100 mg tid) Health Concerns Section Related Observation LastModified by Organization Detai ls LastModified Time None Recorded Concern Status LastModified by Organization Details LastModified Time None Recorded Payers Encounter Date Sequence Insurance Name Policy Number Policy Baeza Covered Member ID Baeza Member ID Guarantor Name 11/01/2024 1 [employer] (MEDICARE REPLACEMENT PPO) [id number] Edgardo Lemus [id number] Edgardo Lemus Notes Date Note Type Note Provider Name and Address Organization Details Recorded Time 11/01/2024 text/html Edgardo is a 59 yr old male patient seen for acute rounding visit per his request. He tells me that he has been requesting to see me since july and that he has not been getting his medications ( hydroxyzone, excema cream, albuterol inhaler and that his gabapentin dose is wrong). He is reminded that he has been seen and prior to my first visit, he was being followed by another provider. his complaints are:currently on gabapentin 600 mg and supposed to be on 800 mg TID.He has not been getting his hydroxyzine 100 mg because nursing has given them to other patients.He has been asking for albuterol inhaler for his asthmaHe states that he is running out of oxycodone he only has 25 pills left, he does not want to run out, we discussed titrating as he prepares for discharge in november. He is immediately agitated, states that he has unrelieved back pain, I discussed discontinuing oxycodone if he is not getting any relief, he wants the dose increased if he has to wait longer than 4 hours for next prn dose. He is reminded that he sleeps overnight without awaken for pain medication. He is requesting soma for muslce spasm, he is referred to discuss with his PCP after discharge. AIDAN CISNEROS [address] [facility], [facility] [address], [place], [address], [facility] 11/15/2024 15:37:52 11/14/2024 text/html Patient is a 59 yo male resident seen in preparation for discharge. Patient currently being weaned off oxycodone. Hx of substance abuse and chronic pain will be transitioning to rest home. Patient will be given script for oxycodone 5 mg bid x 3 days then q day x 5 days (#11) tabs written. Patient has f/u with PCP in community. He is currently independent with ADLs. Patient was initially admitted > 3 months prior post respiratory distress with worsening of interstitial lung disease. Now at baseline Lucas Zapata MD [address] [facility], [address], [place], [address], [facility] 11/14/2024 11:01:24
--- OUTSIDE RECORDS SUMMARY | 2024-11-17 12:36 | XMS_ITS | Continuity of Care Document ---
Author Organization [facility] Address [address] [place] [address] Phone Care Team Providers Care Management Accounts Manager Name Role Phone Unavailable Unavailable Unavailable Advance Directives Directive Yes / No Effective Date File Name No Information Encounters Encounter Description Practice Location Reason(s) For Visit Diagnoses Date Provider Providers Copied on Encounter [facility], [address] [place] [address], [id number], [place] tel:[phone] [facility] No Information No Information Family History Family Member Type Diagnosis Age At Onset No Information Payers Payer name Insurance type Covered alliance party ID Authoriza tion(s) No Information Social History Type Description Quantity Date Captured Comments Sex Male Smoking Status No Information Chief Complaint And Reason For Visit No Information Reason For Referral Reason For Referral No Information History Of Present Illness Encounter Date Complaint History Of Prese nt Illness No Information Functional Status Date Functional Assessmen t No Information Instructions Date Instruction Additional Infor mation No Information Assessments Type Assessment Date No Information Patient Care Teams Name Effective Dates (start - stop) Status Members No Information
--- OUTSIDE RECORDS SUMMARY | 2024-11-17 12:36 | XMS_ITS | Data Portability ---
Author Organization [facility], Main Office Address [address], [address] [place] [address] Care Team Providers Care Medical Interpreter Name Role Phone [facility] OTHER Assessment No [...] and Address Organization Details Recorded Time Anxiety 31667408 Active 2024 AIDAN CISNEROS [address], [address], [place], [address] , [facility] 5 14:03:03 Asthma 407978382 Active 2024 EULALIA SILVA [facility] [address], [address], [place], [address] , [facility] [employer] [facility] 5 14:03:08 Hypertens koby disorder 00131075 Active 2024 EULALIA SILVA [facility] [address], [address], [place], [address] , [facility] [employer] [facility] 5 14:03:13 Hypothyro idism 15072009 Active 2024 EULALIA SILVA [facility] [address], [address], [place], [address] , [facility] [employer] [facility] 5 14:03:20 Depressiv e disorder 60656997 Active 2024 EULALIA SILVA [facility] [address], [address], [place], [address] , [facility] [employer] 5 14:03:29 History of substance abuse 391344381 Active 2024 AIDAN CISNEROS [address] [place] [address], [address], [place], [address] , [facility] [employer] 5 14:04:01 Tobacco user 089105201 Active [address], [address], [place], [address] , 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 [employer] 5 14:04:30 Chronic deep venous thrombosi s of lower extremity 77214222110 9106 Active 2024 AIDAN CISNEROS [address] [place] [address], [address], [place], [address] , [facility] [employer] 5 14:07:59 Interstit ial lung disease 283043300 Active 2024 AIDAN CISNEROS [address] [place] [address], [address], [place], [address] , [facility] [employer] 5 14:08:07 Acute respirato ry failure 42407920 Active 2024 AIDAN CISNEROS [address] [place] [address], [address], [place], [address] , [facility] [employer] 5 14:08:38 Chronic pain 98435554 Active 2024 AIDAN CISNEROS [address] [place] [address], [address], [place], [address] , [facility] [employer] 5 14:10:47 Benign prostatic hyperplas ia 661800077 Active 2024 AIDAN CISNEROS [address], [address], [place], [address] , [facility] 5 14:14:58 Gastroeso phageal reflux disease 577170531 Active 2024 AIDAN CISNEROS [address], [address], [place], [address] , [facility] [employer] 5 14:16:14 Hyperlipi demia 99645768 Active 2024 AIDAN CISNEROS [address], [place], [address] , [facility] [employer] [facility] 5 14:16:51 Low blood pressure 35545802 Active 2024 AIDAN CISNEROS [address], [place], [address] , [facility] [employer] [facility] 5 14:19:37 Orthostat ic hypotensi on 78296155 Active 2023 Not Available [facility] 5 09:26:38 Oral phase dysphagia 754671107 Active 2023 Not Available [facility] 5 09:26:38 Gastroeso phageal reflux disease without esophagit is 739078215 Active 2023 Not Available [facility] 5 09:26:38 Falls 313688230 Active 2023 Not Available [facility] 5 09:26:39 Delirium 1267251 Active 2023 Not Available [facility] 5 09:26:39 Imaging of abdomen Active 2023 Not Available [facility] 5 09:26:39 Dysthymia 27190331 Active 2023 Not Available [facility] 5 09:26:40 Generaliz ed anxiety disorder 95578959 Active 2023 Not Available [facility] 5 09:26:40 Uncomplic ated mild persisten t asthma 907640099 Active 2023 Not Available [facility] 5 09:26:41 Nicotine dependenc e 67565454 Active 2023 Not Available [facility] 5 09:26:41 Blood chemistry Active 2023 Not Available [facility] 5 09:26:42 Embolism from thrombosi s of vein of lower extremity 964854743 Active 2023 Not Available [facility] 5 09:26:43 Traumatic injury 820978493 Active 2023 right rib fracture sp hardware Not Available [facility] 5 09:26:43 Muscle weakness 50440661 Active 2023 Not Available [facility] 5 09:26:43 Difficult y walking 885648618 Active 2023 Not Available [facility] 5 09:26:44 Unsteady when standing 734677677 Active 2023 Not Available [facility] 5 09:26:44 Nausea and vomiting 87812874 Active 2023 Not Available [facility] 5 09:26:45 Anorexia nervosa 17289352 Active 2023 Not Available [facility] 5 09:26:46 Constipat ion 76354549 Active 2023 Not Available [facility] 5 09:26:46 Anxiety disorder 563992683 Active 2023 Not Available [facility] 5 09:26:48 Acute hypoxemic respirato ry failure 657021640 Active 2023 Not Available [facility] 5 09:26:48 Problem Notes None recorded. Medical Equipment None Reported. Allergies Allergen ID Allergen Name Allergen Category Reaction Reaction Severity Criticality Documentation Date Start Date Code Code System Note Provider Name and Address Organization Details Recorded Time 66226 Product containin g penicilli n (product) medicatio n Not available Not available Not available 09/22/2024 22028 8001 SNOMED Not Available Not Available Not Available 17411 tramadol medicatio n Not available Not available Not available 09/22/20242023 16134 RxNorm Not Available Not Available Not Available 64215 aspirin medicatio n Not available Not available [...] 12 hours as needed for Itching until 5 23:59 11/16 completed Not Available Not Available Not Available Vitals Date Recorded Body temperature Oxygen saturation Oxygen saturation in Arterial blood by Pulse oximetry Respiratory rate Body weight Systolic blood pressure Diastolic blood pressure Provider Name and Address Organization Details Last Updated DateTime 5 98.1 [degF] 97 % 97 % 19 /min 02748.9 6 g 122 mm[Hg] 72 mm[Hg] AIDAN CISNEROS [address], [address], [place], [address] , [place] - [facility] [address] 5 13:53:10 Social History Question Answer Notes LastModified by Organizat ion Details LastModified Time Tobacco Smoking Status Former Smoker AIDAN CISNEROS [address], [address], [place], [address], [facility] 09/22/2024 14:31:13 What Is Your Level Of [...] SNOMED-CT Code Diagnosis ICD10 Code Diagnosis Note [id number] AIDAN CISNEROS [facility] [address] [place] [address] 09/22/2024 13:51:33 09/23/2024 11:32:04 Chronic pain 63372203 G89.29 on oxycodone 10 mg o2cdumuwla e patch dailyconti nue miralax daily for medical terminologist opioid and prn senna and colacesche duled apap Hypothyroidism 18254116 E03.9 on levothyrox ine Anxiety 98095285 F41.9 on chlorproma zine daily Depressive disorder 3548 9007 F32.A onn duloxetine , buspirone , sertraline daily 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 onn gabapentin TID Benign pro static hyperplasia 459478004 N40.0 on flomax daily Asthma 652784787 J45.90 9 on albuterol inhaler prnneb tx prn Chronic de ep venous thrombosis of lower extremity 8867036678 70519 I82.509 apixaban BID Gastroesop hageal reflux disease 865373641 K21.9 protonix daily Hyperlipidemia 66886729 E78.5 on lipitor Tobacco user 541530216 Z 72.0 on vareniclin e BIDnicotin e patch History of substance abuse 708345385 F19.11 etoh and polysubsta nce hxon thiamine Low blood pressure 36235 003 I95.9 midodrine TID Hypertensive disorder 38 390472 I10 not on any med for high BPmonitor BP [id number] AIDAN CISNEROS [address] [place], [place] [address] 11/01/2024 11:02:27 11/16/2024 08:47:50 Chronic pain 03580193 G89.29 states that he was prescribed oxycodone [...] he is not receptive to learning. Eczema 14210177 L30.9 facial - there currently is no rash notedeucer in recommende d, per patient it does not helpwill order hydorcorti sone 0.5 % bid for 14 days and re-eval Anxiety 56022533 F41.9 on chlorproma zine dailyadded hydroxyzin e 50 mg prn q12 ( he states that he used to take 100 mg tid) [id number] MD VLAD Barger [address] [place] [address] 11/14/2024 10:45:57 11/16/2024 09:39:59 Chronic pain 59308337 G89.29 weaning off oxycodoneg iven script for oxycodone 5 mg bid x 3 days then q day x 5 days (#11) tabs writtenf/u [place]CP in [place] 800 mg tid continued Hypothyroidism 63539660 E03.8 synthroid 25 mcg qdcontinue d Depressive disorder 3548 9007 F33.8 maintained onduloxeti ne 20 mg bid,buspir one 15 mg tid,zoloft 150 mg qd Alcoholic polyneuropathy 9566913 G62.1 gabapentin 800 mg TID Benign pro static hyperplasia 068632581 N40.0 flomax 0.4 mg qdmonitor for retention Gastroesop hageal reflux disease 854335676 K21.9 protonix 40 mg bidmonitor ability to wean Hyperlipidemia 64619503 E78.2 lipitor 20 mg qdcontinue d Tobacco user 427781317 Z 72.0 encourage quitting History of substance abuse 129942477 F19.11 carrying dx of etoh and polysubsta nce hxcontinue thiamine Low blood pressure 42329 003 I95.89 monitor bp at f/u with PCP and ability to wean off midodrine Health Concerns Section Related Observation LastModified by Organization Detai ls LastModified Time None Recorded Concern Status LastModified by Organization Details LastModified Time None Recorded Advance Directives Directive None Recorded Payers Encounter Date Sequence Insurance Name Policy Number Policy Baeza Covered Member ID Baeza Member ID Guarantor Name 09/22/2024 1 [employer] (MEDICARE REPLACEMENT PPO) [id number] Edgardo Lemus [id number] Edgardo Lemus 11/01/2024 1 [employer] (MEDICARE REPLACEMENT PPO) [id number] Edgardo Lemus [id number] Edgardo Lemus 11/14/2024 1 [employer] (MEDICARE REPLACEMENT PPO) [id number] Edgardo Lemus [id number] Edgardo Lemus Notes Date Note Type Note Provider Name and Address Organization Details Recorded Time 09/22/2024 text/html This is a 59 yr old male seen for transition of care. PMH frequent fall, orthostatic hypotension on midodrine, history of R flail chest s/p internal fixation, anxiety, substance abuse (cocaine and alcohol), tobacco use disorder. Admitted to facility in july 2024. Initially presented to [facility] in resp distress. CT imaging findings also concerning for progression of ILD. Thoracic surgery consulted for postop phlegmon. However, they feel that this is not necessarily a drainable and that it does not warrant antibiotics either. 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 Likely that patient's hypoxia is being driven by his pain from manipulation of the hardware and progression of ILD. Patient has not been assessed by pulmonology before for this. Pulmonology following regarding ILD, workup sent and patient will follow with them outpatient. Following pulm rehab assessment, he is requiring 3L at rest and 6L with ambulation. Patient was noted to have elevated D Dimer on admission. B/L LE US was done and it showed nonocclusive linear echogenic material in the common femoral vein and femoral vein in the proximal thigh, suggestive of persistent nonocclusive thrombus. Patient seems to have past history of DVT but unclear when anticoagulation was started and stopped. AIDAN CISNEROS [address], [address], [place], [address], [facility] [employer] 09/22/2024 14:31:53 11/01/2024 text/html Edgardo is a 59 yr [...] his PCP after discharge. AIDAN CISNEROS [address], [address], [place], [address], [facility] [employer] 11/15/2024 15:37:52 11/14/2024 text/html Patient is a [...] Now at baseline Lucas Zapata MD [address], [address], [place], [address], [facility] 11/14/2024 11:01:24
== END 2024-11-17 11:49 | disposition home or self-care (01) ==
PROVIDERS: PCP Internal Medicine
DX: S22.41XD Multiple fractures of ribs, right side, subsequent encounter for fracture with routine healing (principal); I82.4Z1 Acute embolism and thrombosis of unspecified deep veins of right distal lower extremity; G62.9 Polyneuropathy, unspecified; M54.9 Dorsalgia, unspecified; S22.5XXD Flail chest, subsequent encounter for fracture with routine healing

== ENCOUNTER → 2024-11-17 10:30 | Outpatient (BNVA) | payer MEDICARE, MEDICAID, SELFPAY | PROVIDERS: PCP Internal Medicine | DX: S22.41XD Multiple fractures of ribs, right side, subsequent encounter for fracture with routine healing (principal); I82.4Z1 Acute embolism and thrombosis of unspecified deep veins of right distal lower extremity; M54.9 Dorsalgia, unspecified; G62.9 Polyneuropathy, unspecified | CPT/HCPCS: 96127; 99212 ==

== ENCOUNTER 2025-01-23 10:01 | Outpatient (AMB) | payer MEDICARE, MEDICAID, SELFPAY ==
[2025-01-23 10:04] VITALS: BP 126/82; PULSE 85; O2SAT 96; BMI 22.2
--- NOTE | 2025-01-23 10:04 | MHC.PC.OV ---
Vital Signs 01/23/25 10:04 Height 6 ft 1 in Weight 168 lb BMI 22.2 BP 126/82 Blood Pressure Location Lt brachial Position Sitting Pulse 85 Pulse Source Pulse Oximeter Pulse Oximetry (%) 96 Oxygen Delivery Method Room Air Intake Visit Reasons: broken pelvis Quarryman Required: No Accompanied by: Self / Same As Patient Allergies aspirin [ASA] Allergy (Unknown, Verified 01/23/25 10:44) FACIAL SWELLING Penicillins [PENICILLINS] Allergy (Unknown, Verified 01/23/25 10:44) HIVES trazodone Allergy (Verified 01/23/25 10:44) Anaphylaxis tramadol [TRAMADOL] Adverse Reaction (Unknown, Verified 01/23/25 10:44) NAUSEA & VOMITING Medication List - Last Reconciled 01/23/25 by Sergey Archer MD albuterol sulfate 90 mcg/actuation 2 puffs inhalation Q6H PRN apixaban (Eliquis) 5 mg PO BID atorvastatin 20 mg PO BEDTIME blood pressure monitor As directed bupropion HCl 75 mg PO BID buspirone 15 mg PO TID chlorpromazine 200 mg PO QPM cholecalciferol (vitamin D3) 50 mcg PO DAILY cyanocobalamin (vitamin B-12) 1,000 mcg PO DAILY 90 days duloxetine 30 mg PO BID gabapentin 800 mg PO TID hydroxyzine pamoate 100 mg PO Q8H PRN 30 days levothyroxine 25 mcg PO DAILY lidocaine-prilocaine 2.5-2.5 % 1 appl topical ONCE melatonin 5 mg PO BEDTIME 30 days metoprolol succinate ER 25 mg PO DAILY midodrine 2.5 mg PO TID midodrine 5 mg PO TID 30 days mupirocin 2% 1 appl topical TID oxycodone 5 mg PO Q6H PRN pantoprazole 40 mg PO DAILY sertraline 150 mg (3 x 50 mg) PO DAILY 30 days tamsulosin 0.4 mg PO BEDTIME 90 days thiamine HCl (vitamin B1) 100 mg PO DAILY 30 days triamcinolone acetonide 0.5% 1 appl topical BID varenicline tartrate mg PO Tobacco use date assessed: 01/23/25 Dental Screening Dental Screen Date: 01/23/25 Did you have a dental visit in the last 12 months?: No Did you have a dental problem in the last 6 months where you did not have access to dental care?: No Was dental information given to patient?: No HPI broken pelvis HPI Details Patient comes in today for his follow up visit States that he is currently still experiencing increased pelvic pain due to his pelvic fracture He reportedly fell out of bed after he had some nightmares while sleeping - states that he hit his head when he fell and sustained a pelvic fracture as well in the process He initially went to the ER at [facility] where he was diagnosed with the pelvic fracture on imaging studies He was advised that he did not require surgery and was instead discharged to short-term rehab Patient states that he was initially sent to [facility] but was then subsequently transferred to a different assisted when they supposedly want him to get out of bed and walk on his first day there but he could not do so He went to the ER at [facility] about 3 days later for progressive lower abdominal / pelvic pain and adds that he was experiencing trouble urinating at the time He had a lumbar spine MRI done due to his urinary retention, and the MRI confirmed his previous diagnoses of [id number] anterior wedge compression deformity of T12 as well as his more recent right sacral fracture but no concerning findings of nerve compression were seen that would explain his urinary retention Abominal and pelvic CT done revealed the subacute right inferior ramus fracture and his previous right-sided 7th and 8th rib fractures and fixation with hardware in place He was also evaluated by physical therapy and they recommended that patient can go home and start outpatient PT instead Patient is currently back residing at [facility] and is reportedly awaiting physical therapy to be scheduled His [facility] staff states that they are still in the process of scheduling him for orthopedic follow up States that the staff handles all of patient's meds while he is there and patient himself does not have direct access to his meds without any supervision Patient states that he is currently still in a lot of pain and that his Oxycodone 5 mg Rx just ran out and he would like to have some pain meds refilled States that the 5 mg dose is not enough and as he will be starting PT soon, would like to have his dose increased to 10 mg temporarily if possible He denies any headaches or dizziness Denies any chest pains, no increased SOB No nausea/vomiting but he still has on and off lower abdominal pain that is likely due to his right pelvic ramus fracture No change in bowel habits noted [facility] Medical History (Updated 02/08/25 @ 09:59 by Sergey Archer MD) Flail chest Benzodiazepine withdrawal Neuropathy Foot pain, bilateral Smoker Mixed hyperlipidemia Acquired hypothyroidism Essential hypertension Alcohol use disorder, severe, dependence Polysubstance use disorder Schizoaffective disorder Opiate dependence Colitis Chronic diarrhea Heavy tobacco smoker GERD (gastroesophageal reflux disease) History of colitis Surgical History History of back surgery Family History Mother Alzheimer disease Multiple sclerosis Other Mental health disorder Social History Household Members: None Housing: Other Housing Other:: hotel Do you presently have visiting nurse or other home services: No Alcohol intake: former Comment: 1:1 sitter Patient Tobacco Use Status: Current everyday Tobacco user Tobacco use type: Cigarette Cigarette Packs Per Day: 0.5 Cigarettes Per Day: 20.0 Years Smoked: 30 e-Cigarette/Vaping Use: Never Used Second Hand Smoke Exposure: Yes Substance Use Type: Marijuana service: No Current occupational status: disabled Sexual orientation: Straight/Heterosexual Cognitive needs: No Hearing needs: No Vision needs: Yes Questionnaire PHQ-9 Over the last 2 weeks, how often have you been bothered by any of the following problems? 1. Little interest or pleasure in doing things: not at all 2. Feeling down, depressed, or hopeless: not at all 3. Trouble falling or staying asleep, or sleeping too much: not at all 4. Feeling tired or having little energy: not at all 5. Poor appetite or overeating: not at all 6. Feeling bad about yourself - or that you are a failure or have let yourself or your family down: not at all 7. Trouble concentrating on things, such as reading the newspaper or watching television: not at all 8. Moving or speaking so slowly that other people could have noticed. Or the opposite - being so fidgety or restless that you have been moving around a lot more than usual: not at all 9. Thoughts that you would be better off or of hurting yourself in some way: not at all Total score: 0 Depression Screening Interpretation: Negative Depression Screening Done: Yes 39073 - PHQ-9 Billing: Yes Source: Developed by Drs. Joe Wright, Vandana Etienne, Chemo Brar and colleagues, with an educational frankie from [employer] Thrive Questionnaire Date Thrive assessed: 01/23/25 I am a: Patient What is your living situation today?: I have a steady place to live Within the past 12 months, did the food you bought not last and you didn't have the money to get more?: Never true Within the past 12 months, did you worry whether your food would run out before you got money to buy more?: Never true Do you have trouble paying for medicines?: No Do you have trouble getting transportation to medical appointments?: No Do you have trouble paying your heating and electricity bill?: No Do you have trouble taking care of your child, family member or friend?: No Do you have trouble with day-to-day activities such as bathing, preparing meals, shopping, managing finances, etc.?: No Are you currently unemployed and looking for a job?: No Are you interested in more education?: No Please select the resources that you would like help with: None Currently or been in a relationship where the following occur: No concerns reported THRIVE Score: 0 AUDIT C Alcohol Use Questionnaire (AUDIT-C) 1. How often do you have a drink containing alcohol?: Never 3. How often do you have six or more drinks on one occasion?: Never Total Score: 0 Score Reviewed/Action Taken: Yes ROSANNA-7 AMB Questionnaire ROSANNA-7 Date ROSANNA - 7 assessed: 01/23/25 Feeling nervous, anxious, or on edge: 3 = Nearly every day Not being able to stop or control worryin = Nearly every day Worrying too much about different things: 2 = More than half the days Trouble relaxin = Nearly every day Being so restless that it is hard to sit still: 2 = More than half the days Becoming easily annoyed or irritable: 1 = Several days Feeling afraid as if something awful might happen: 0 = Not at all Total ROSANNA-7 score (0-4 normal; 5-9 mild; 10-14 moderate; 15-21 severe): 14 Source: Developed by Vandana Barahona, Chemo Brar and colleagues, with an educational frankie from [employer] ROSANNA-7 Assessment Billing ROSANNA-7 Assessment Tool: ROSANNA-7 Assessment 86200 Review of Systems Const Denies chills, Reports fatigue, Denies fever(s) and Denies headache(s) ENT Denies dysphagia, Reports dizziness (recurrent), Denies otalgia, Denies headache(s), Denies neck pain, Denies odynophagia and Denies sore throat Card Denies chest pain, Denies irregular heart rhythm, Denies palpitations and Denies dyspnea Resp Denies chest congestion, Denies cough and Denies dyspnea GI Reports abdominal pain (on and off over the lower abdomen), Denies constipation, Denies dysphagia, Denies heartburn, Denies diarrhea, Denies nausea, Denies odynophagia and Denies vomiting Denies difficulty urinating, Denies dysuria, Denies nocturia, Denies urinary frequency and Reports urinary hesitancy Musc Details: c/o chronic pain over both lower extremities; (+) lower right abdominal and deep right pelvic pain lately Reports back pain (chronic) and Denies neck pain Skin/Breast Denies rash Neuro Details: (+) recurrent burning pain on both feet Reports burning sensations (in both feet), Reports dizziness (recurrent), Denies headache(s) and Reports paresthesias Psych Reports anxiety (increased) and Reports depression Endo Reports fatigue and Denies palpitations Physical exam (Primary Care) Vital Signs: Last Vital Signs Pulse 85 01/23/25 10:04 BP 126/82 01/23/25 10:04 Pulse Ox 96 01/23/25 10:04 Oxygen Delivery Method Room Air 01/23/25 10:04 BMI result Body Mass Index 22.2 Tobacco/Smoking Status: Tobacco use Status Tobacco use date assessed 01/23/25 01/23/25 10:16 Patient Tobacco Use Status Current everyday Tobacco 01/23/25 10:16 Tobacco use type Cigarette 01/23/25 10:16 e-Cigarette/Vaping Use Never Used 01/23/25 10:16 PHQ-9: PHQ-9 Score PHQ-9: Total score 0 02/08/25 10:08 Depression Screening Interpretation: Negative Thrive Assessment: Date of Thrive Assessment Date Thrive assessed 01/23/25 01/23/25 10:16 Currently or been in a relationship where the following occur: No concerns reported Const General: no acute distress and alert HENMT Ears: TM's normal bilaterally and EAC's normal Throat: Yes posterior oropharynx normal and Yes tonsils normal (no TP congestion) Neck Neck: Yes supple and No lymphadenopathy Thyroid: Thyroid normal Resp Auscultation: clear to auscultation bilaterally, no rales and no wheezes Cardio Rate: regular rate Rhythm: regular rhythm Heart sounds: no murmurs GI Palpation (GI): Soft to palpation, Tenderness to palpation present (GI) (mild, over the right lower abdomen and right suprapubic areas), no guarding, not rigid and No Rebound tenderness present Auscultation: normal bowel sounds General: Yes no CVA tenderness Back/Spine/Pelvis Back: no CVA tenderness Thoracic/Lumbar Spine: lumbar spinal tenderness Skin Rashes: no rashes Extrem General: Yes no clubbing, cyanosis or edema Coding Level of Care Code Est Pt Level 4 (54629) Diagnoses Closed nondisplaced fracture of right pubis, sequela S32.501S Encounter type: sequela Fracture alignment: nondisplaced Fracture type: closed Laterality: right Pelvic bone location: pubis Closed fracture of multiple ribs of right side with routine healing, subsequent encounter S22.41XD Encounter type: subsequent encounter Fracture type: closed Laterality: right Fracture healing: with routine healing Neuropathy G62.9 Deep vein thrombosis (DVT) of distal vein of right lower extremity, unspecified chronicity I82.4Z1 Affected thrombotic vein of extremity: unspecified lower extremity distal vein Chronicity: unspecified Chronic alcohol abuse F10.10 Anxiety F41.9 Schizoaffective disorder, unspecified type F25.9 Schizoaffective disorder type: unspecified Smoker F17.200 Additional Codes ROSANNA-7 Assessment Billing - ROSANNA-7 Assessment Tool: ROSANNA-7 Assessment 61882 ([id number]) PHQ-9 - 80468 - PHQ-9 Billing: Yes ([id number]) Assessment & Plan Assessment & Plan (1) Pelvic fracture: Code(s): S32.9XXA - Fracture of unspecified parts of lumbosacral spine and pelvis, initial encounter for closed fracture Category: Medical Qualifiers: Encounter type: sequela Fracture alignment: nondisplaced Fracture type: closed Laterality: right Pelvic bone location: pubis Qualified Code(s): S32.501S - Unspecified fracture of right pubis, sequela Plan: Abominal and pelvic CT done revealed (+) subacute right inferior ramus fracture - this is a result of patient falling out of bed recently after reportedly experiencing some nightmares when he was sleeping He is being scheduled to start physical therapy soon at the current rest home where he is staying The rest home staff is also presently working on scheduling an outpatient follow up visit for him with orthopedics Per patient request, I will agree to start him for now on some Oxycodone 10 mg Q 6 hours PRN to help him with his pelvic pain, especially since he will be starting physical therapy soon I have confirmed with his [facility] home staff that patient personally does not have access to his meds on his own without supervision and that the [facility] staff are the ones dispensing his meds to him as prescribed Have reminded patient that this is only on a temporary basis and he will be promptly weaned off his opioids over the next few weeks when he starts improving with physical therapy Review of his [facility] Rx log reveals that he has received Rx for Oxycodone 5 mg for #18 tablets on 01/17/25, #30 tablets on 11/07/2024, #4 tablets on 10/30/2024, #33 tablets on 09/29/2024 and #236 tablets (for a 20 days supply) on 09/01/2024 - these are most likely when he was at rehab or nursing homes (2) Rib fractures: Code(s): S22.49XA - Multiple fractures of ribs, unspecified side, initial encounter for closed fracture Category: Medical Qualifiers: Encounter type: subsequent encounter Fracture type: closed Laterality: right Fracture healing: with routine healing Qualified Code(s): S22.41XD - Multiple fractures of ribs, right side, subsequent encounter for fracture with routine healing Plan: Patient reportedly fell into his dresser and broke 4 ribs on the right side a few months ago that required surgical fixation Abominal and pelvic CT done recently revealed the subacute right inferior ramus fracture as well as his previous right-sided 7th and 8th rib fractures and fixation with hardware in place Have advised patient that he would continue experiencing some pain over his affected ribs indefinitely but this is not something that should require lifelong opioid Rx for pain (3) Neuropathy: Comment: alcoholism , nutritional deficiency Code(s): G62.9 - Polyneuropathy, unspecified Category: Medical Plan: Continue Gabapentin 800 mg TID He was seen by neurology last year and was started additionally on Duloxetine 20 mg BID and referred to PT - unclear at this time if patient ever completed his PT or not Follow up with neurology as scheduled (4) Right leg DVT: Code(s): I82.401 - Acute embolism and thrombosis of unspecified deep veins of right lower extremity Category: Medical Qualifiers: Affected thrombotic vein of extremity: unspecified lower extremity distal vein Chronicity: unspecified Qualified Code(s): I82.4Z1 - Acute embolism and thrombosis of unspecified deep veins of right distal lower extremity Plan: Continue Eliquis 5 mg BID (5) Chronic alcohol abuse: Code(s): F10.10 - Alcohol abuse, uncomplicated Category: Medical Plan: S/P detox late last year; states that he was staying at the [facility] until all of his recent injuries States that he has been sober for over a year now Continue Thiamine 100 mg QD, Folic Acid 1 mg QD and B12 1000 mcg QD (6) Anxiety: Code(s): F41.9 - Anxiety disorder, unspecified Category: Medical Plan: Continue Hydroxyzine 100 mg TID PRN, Bupropion 75 mg BID and Buspirone 15 mg TID; continue Duloxetine 20 mg TID He also takes Melatonin 5 mg Q HS to help him sleep at night; he was also instructed to take his bedtime dose of Cloniding 0.2 mg to help with his anxiety and help him sleep better at night Follow up with psychiatry as scheduled (7) Schizoaffective disorder: Code(s): F25.9 - Schizoaffective disorder, unspecified Category: Medical Qualifiers: Schizoaffective disorder type: unspecified Qualified Code(s): F25.9 - Schizoaffective disorder, unspecified Plan: Continue Bupropion 75 mg BID, Gabapentin 800 mg TID and Duloxetine 30 mg BID Follow up with psychiatry as scheduled (8) Smoker: Code(s): F17.200 - Nicotine dependence, unspecified, uncomplicated Category: Medical Plan: Patient is counseled again on complete smoking cessation Plan Follow up in 2 months Medications: New oxycodone Partial Fill upon patient request. 10 mg PO Q6H PRN 28 tabs 0RF pain 7 days S32.9XXA - Fracture of unspecified parts of lumbosacral spine and pelvis, initial encounter for closed fracture
--- OUTSIDE RECORDS SUMMARY | 2025-01-23 10:27 | XMS_ITS | Continuity of Care Document ---
Author Organization [facility] Address [address] [place] [phone] Phone Care Team Providers Care Director Of Strategic Sourcing Name Role Phone Unavailable Unavailable Unavailable Advance Directives Directive Yes / No Effective Date File Name No Information Encounters Encounter Description Practice Location Reason(s) For Visit Diagnoses Date Provider Providers Copied on Encounter [facility], [address] [place] [address], [id number], [place] tel:[id number] [facility] [place] No Information No Information Family History Family [...]
== END 2025-01-23 11:12 | disposition home or self-care (01) ==
LOC: HO.HMCH 10:01
PROVIDERS: PCP Internal Medicine; Visit Provider Internal Medicine
DX: I82.4Z1 Acute embolism and thrombosis of unspecified deep veins of right distal lower extremity (principal); S22.41XD Multiple fractures of ribs, right side, subsequent encounter for fracture with routine healing; F25.9 Schizoaffective disorder, unspecified; S32.501S Unspecified fracture of right pubis, sequela; G62.9 Polyneuropathy, unspecified; F10.10 Alcohol abuse, uncomplicated; F41.9 Anxiety disorder, unspecified; F17.200 Nicotine dependence, unspecified, uncomplicated

== ENCOUNTER → 2025-01-23 10:01 | Outpatient (BNVA) | payer MEDICARE, MEDICAID, SELFPAY | PROVIDERS: PCP Internal Medicine; Visit Provider Internal Medicine | DX: S32.501D Unspecified fracture of right pubis, subsequent encounter for fracture with routine healing (principal); S22.41XD Multiple fractures of ribs, right side, subsequent encounter for fracture with routine healing; G62.9 Polyneuropathy, unspecified; I82.4Z1 Acute embolism and thrombosis of unspecified deep veins of right distal lower extremity; F10.10 Alcohol abuse, uncomplicated; F41.9 Anxiety disorder, unspecified; F25.9 Schizoaffective disorder, unspecified; F17.210 Nicotine dependence, cigarettes, uncomplicated; W06.XXXD Fall from bed, subsequent encounter; W22.8XXD Striking against or struck by other objects, subsequent encounter | CPT/HCPCS: 96127; 99212 ==

== ENCOUNTER → 2025-01-30 23:59 | Outpatient (BNV) | payer MEDICARE, MEDICAID, SELFPAY | PROVIDERS: PCP Internal Medicine; Visit Provider Internal Medicine | DX: S32.511D Fracture of superior rim of right pubis, subsequent encounter for fracture with routine healing (principal); J45.30 Mild persistent asthma, uncomplicated; I82.509 Chronic embolism and thrombosis of unspecified deep veins of unspecified lower extremity | CPT/HCPCS: G0180 ==